=== PATIENT | male | born 1965 | race Two or more races ===

== ENCOUNTER 2020-06-14 16:23 | Outpatient (REF) | payer OTHER, SELFPAY ==
[2020-06-14 16:52] LABS: Mean Corpuscular Volume 76.8 fL (80-98); Mean Platelet Volume 11.3 fL (9.4-12.4); Monocytes Percent Auto 10.3 % (2-11); PLT CLUMP 1; Red Cell Distribution Width 17.2 % (11.0-16.0); SCAN SMEAR FLAG 1
[2020-06-14 16:54] LABS: Basophils Percent Auto 0.6 % (0-2); Eosinophils Absolute Auto 0.3 X10*3/uL (0.0-0.4); Eosinophils Percent Auto 5.3 % (0-4); Hematocrit 38.1 % (42-52); Imm Gran Abs Auto 0.02 X10*3/uL (0.00-0.03); Imm Gran Pct Auto 0.4 % (0.0-0.4); Lymphocytes Percent Auto 18.4 % (20-40); Mean Corpuscular HGB Conc 31.5 g/dl (31.0-36.0); Mean Corpuscular Hemoglobin 24.2 pg (27.0-33.0); Monocytes Absolute Auto 0.6 X10*3/uL (0.1-1.2); Neutrophils Absolute Auto 3.5 X10*3/uL (2.0-8.3); Platelet Count 121 X10*3/uL (160-400); Red Blood Count 4.96 X10*6/uL (4.60-5.80); White Blood Count 5.3 X10*3/uL (4.8-10.8)
[2020-06-14 16:55] LABS: PLT ABN DIST 1
[2020-06-14 16:56] LABS: MANUAL DIFF FLAG NO
[2020-06-14 16:58] LABS: INTERNATIONAL NORM RATIO 1.3 (0.9-1.1); Prothrombin Time 15.7 SEC (10.8-13.0)
[2020-06-14 17:39] LABS: Alanine Aminotransferase 54 U/L (0-40); Albumin Level 3.3 g/dL (3.5-5.0); Alkaline Phosphatase 175 U/L (39-117); Anion Gap 10 (12-20); Aspartate Amino Transferase 103 U/L (5-37); Bilirubin Direct 0.6 mg/dL (0.0-0.5); Bilirubin Total 1.1 mg/dL (0.0-1.0); Blood Urea Nitrogen 9 mg/dL (9-16); Calcium 8.6 mg/dL (8.4-10.2); Carbon Dioxide 28 mmol/L (22-29); Chloride 105 mmol/L (96-108); Estimated Glomerular Filt Rate > 60; Glucose Random 153 mg/dL (60-115); Potassium 4.6 mmol/l (3.3-5.1); Sodium 138 mmol/L (135-145)
== END 2020-06-14 16:24 | disposition home or self-care (01) ==
LOC: HO.LAB 16:23
PROVIDERS: PCP Internal Medicine; Visit Provider Internal Medicine
DX: K70.31 Alcoholic cirrhosis of liver with ascites (principal); I85.00 Esophageal varices without bleeding
CPT/HCPCS: 36415; 80053; 80076; 82248; 85025; 85610

== ENCOUNTER 2020-06-20 14:28 | Outpatient (REF) | payer OTHER, SELFPAY ==
[2020-06-21 11:27] LABS: Alpha Fetoprotein 3.6 ng/mL (<6.1)
== END 2020-06-20 14:29 | disposition home or self-care (01) ==
LOC: HO.LAB 14:28
PROVIDERS: PCP Internal Medicine; Visit Provider Internal Medicine
DX: K70.31 Alcoholic cirrhosis of liver with ascites (principal); I85.00 Esophageal varices without bleeding
CPT/HCPCS: 36415; 82105

== ENCOUNTER 2020-06-27 09:24 | Outpatient (REF) | payer OTHER, SELFPAY | END 2020-06-27 09:25 | disposition home or self-care (01) | LOC: HO.MRI 09:24 | PROVIDERS: Visit Provider Internal Medicine | DX: Z13.89 Encounter for screening for other disorder (principal) ==

== ENCOUNTER 2020-07-05 09:48 | Day surgery (SDC) | payer OTHER, SELFPAY ==
[2020-06-29 13:11] VITALS: BMI 29.9
[2020-06-29 15:00] VITALS: BMI 28.8
--- NOTE | 2020-07-04 08:39 | HO.ANESPROP2 ---
Documented by User: Nori Tatum 07/04/20 08:41 HPI - Anesthesia Eval Consult details Narrative: 55yo M for Upper Endoscopy with banding previously done at [facility] Past Medical History Medical History Cirrhosis Diabetes Elevated cholesterol Hepatitis History of alcohol abuse HTN (hypertension) Myocardial infarction Surgical History Surgical History H/O colonoscopy History of esophagogastroduodenoscopy (EGD) History of PTCA Hx of elbow surgery Hx of hand surgery Social History Social History Smoking Status: Unknown if ever smoked Advance Directives Information Provided: No Recently lost weight without trying: No Meds Allergies Allergy/AdvReac Type Severity Reaction Status Date / Time codeine [CODEINE] Allergy Mild ITCHINESS, Verified 07/05/20 10:29 itching penicillin G Allergy Mild itching Verified 06/29/20 13:03 Home Medications Medication Instructions Recorded Confirmed Type atorvastatin 20 mg PO DAILY 06/29/20 06/29/20 History dapagliflozin [Farxiga] 10 mg PO DAILY 06/29/20 06/29/20 History insulin glargine [Lantus Solostar 70 unit SUBCUT DAILY 06/29/20 07/05/20 History U-100 Insulin] metformin 1,000 mg PO BID 06/29/20 06/29/20 History nadolol 1.5 tab PO DAILY 06/29/20 06/29/20 History omeprazole 20 mg PO DAILY 06/29/20 06/29/20 History Exam Exam Date and Time: July 04, 2020 0839 Height,Weight and Vital Signs: Height 5 ft 5.5 in Weight 79.832 kg Pertinent Lab Results Pertinent Lab Results: Laboratory Tests 06/14/20 06/14/20 16:34 16:34 WBC 5.3 Hgb 12.0 L Hct 38.1 L Plt Count 121 L Sodium 138 Potassium 4.6 Chloride 105 Carbon Dioxide 28 BUN 9 Creatinine 1.01 Assessment and Plan Assessment Anesthesia Assessment: Chart Reviewed Documented by User: Sandy Jorge 07/05/20 10:44 PMFSH Past Medical History Medical History Cirrhosis Diabetes Elevated cholesterol Hepatitis History of alcohol abuse HTN (hypertension) Myocardial infarction Surgical History Surgical History H/O colonoscopy History of esophagogastroduodenoscopy (EGD) History of PTCA Hx of elbow surgery Hx of hand surgery Social History Social History Smoking Status: Unknown if ever smoked Advance Directives Information Provided: No Recently lost weight without trying: No Meds Allergies Allergy/AdvReac Type Severity Reaction Status Date / Time codeine [CODEINE] Allergy Mild ITCHINESS, Verified 07/05/20 10:29 itching penicillin G Allergy Mild itching Verified 06/29/20 13:03 Home Medications Medication Instructions Recorded Confirmed Type atorvastatin 20 mg PO DAILY 06/29/20 06/29/20 History dapagliflozin [Farxiga] 10 mg PO DAILY 06/29/20 06/29/20 History insulin glargine [Lantus Solostar 70 unit SUBCUT DAILY 06/29/20 07/05/20 History U-100 Insulin] metformin 1,000 mg PO BID 06/29/20 06/29/20 History nadolol 1.5 tab PO DAILY 06/29/20 06/29/20 History omeprazole 20 mg PO DAILY 06/29/20 06/29/20 History Exam Airway Mallampati Class: III ([place] front bottom and side) TM Dist: >3cm Neck ROM: Full Heart: RrR Lungs: CtA BL Assessment and Plan Assessment Anesthesia Assessment: Anesthesia Plan Discussed and Chart Reviewed Final Anesthetic Review NPO: Yes ASA Class: III Final Preanesthetic Review: Meds/Allgs Chart Reviewed and Consent Obtained/Reviewed Patient Risk: Intermediate Procedure Risk: Intermediate Anesthetic Plan Anesthetic Plan: MAC: Disposition: Standard PACU
[2020-07-05 10:30] LABS: Glucose, Whole Blood 165 mg/dL (60-115)
[2020-07-05 10:31] VITALS: BP 126/73; PULSE 87; RESP 16; TEMP 37.1; O2SAT 100
[2020-07-05] MEDS: Lactated Ringers 1,000 ML 100 ML IVCONT (10:35)
[2020-07-05 11:30] VITALS: BP 81/54; PULSE 96; RESP 16; TEMP 36.1; O2SAT 96
--- NOTE | 2020-07-05 11:38 | PM.OP ---
Brief Operative Note Date of Service: 07/05/20 Pre-op diagnosis: Cirrhosis, Esophageal varices Post-op diagnosis: other (Esophageal varices, Inflammatory gastric polyps, Gastritis) Procedure: EGD with banding Surgeon: Maverick Zuluaga Anesthesia: MAC Estimated blood loss (mL): 3.0 Pathology: none sent Condition: stable Disposition: PACU
[2020-07-05 11:45] VITALS: BP 100/65; PULSE 83; RESP 16; O2SAT 97
[2020-07-05 12:00] VITALS: BP 104/68; PULSE 89; RESP 16; TEMP 36.1; O2SAT 100
--- NOTE | 2020-07-05 12:20 | HO.POSTANES ---
Post Anesthesia Evaluation Post Anesthesia Evaluation Vital Signs: Vital Signs Temp Pulse Resp BP Pulse Ox 07/05/20 12:00 97.0 F 89 16 104/68 100 07/05/20 11:45 83 16 100/65 97 07/05/20 11:30 97.0 F 96 16 81/54 L 96 07/05/20 10:31 98.7 F 87 16 126/73 100 Anesthesia: Monitored Mental Status: Awake Pain Control: Satisfactory Nausea/Vomiting: None Hydration: Adequate Anesthesia-Related Issues: No Anes. Related Issues
--- NOTE | 2020-07-05 13:00 | OP_ITS ---
SURGEON: Maverick Zuluaga MD INDICATIONS: Full consent has been obtained from him for this, including risks of bleeding and perforation. PREOPERATIVE DIAGNOSIS: POSTOPERATIVE DIAGNOSIS: PROCEDURE PERFORMED: Esophagogastroduodenoscopy with banding of esophageal varices. ESTIMATED BLOOD LOSS: COMPLICATIONS: ANESTHESIA: Monitored anesthesia care. ASSISTANTS: SPECIMENS: PREOPERATIVE DIAGNOSES: Cirrhosis and esophageal varices. POSTOPERATIVE DIAGNOSES: Cirrhosis and esophageal varices, small hiatal hernia, inflammatory gastric polyps, and gastritis. DESCRIPTION OF PROCEDURE: The patient was placed in the left lateral decubitus position. The [employer]us video gastroscope was passed in the posterior oropharynx and upper esophagus under direct vision. The scope was passed slowly to the distal esophagus. The gastroesophageal junction appeared at 35 cm. Extending from this to approximately 26 cm, was a single variceal chain. There was no stigmata of recent nor active bleeding. The distal esophagus had scarring consistent with previous banding. There was no esophagitis. The scope entered into the stomach and was advanced to pylorus. The duodenum was cannulated to the descending portion. The duodenum including the bulb was carefully inspected. There was some duodenitis in the duodenal bulb, but no evidence of any ulceration nor mass. The scope was withdrawn back in the stomach. The gastric antrum and body had evidence of gastritis with some less than 5 mm erosions as well as inflammatory appearing gastric polyps, one of which was particularly friable. Biopsies were not obtained due to his elevated INR. The scope was retroflexed visualizing the proximal stomach carefully, which also revealed some proximal gastric polyps, but no sign of any varices. The scope was straightened out and withdrawn back into the esophagus. The scope was withdrawn from the patient. The gastroscope with the [employer] variceal banding apparatus was then passed into the posterior oropharynx and upper esophagus under direct vision. The scope was passed slowly into the distal esophagus. I placed a single band on the variceal chain at 32 cm. There was good application and no sign of bleeding. I then proceeded to place another band at approximately 30 cm and at 28 cm with good deployment and good hemostasis. At that point, the scope was withdrawn from the patient. He tolerated the procedure well and was returned to the recovery area in stable condition. IMPRESSION: 1. Esophageal varices, status post banding. 2. Small hiatal hernia. 3. Inflammatory gastric polyps and gastritis. PLAN: The patient will continue his current regimen of Nadolol 60 mg daily. He will also continue his omeprazole, but I shall increase that to twice a day for 1 month. He will also start a regimen of Carafate suspension 1 g t.i.d. for 2 weeks. He was advised to stay on a very soft and primarily full liquid diet for the next 24 to 48 hours. He will be seen in 2 to 3 months in the office. We are trying to get him an appointment at either the [facility] depending upon his insurance availability, but if not, then we would try to have him be seen at the [facility] in [place] [facility]. He was advised not to use any aspirin and NSAIDs long-term. MD IMANI Nguyen/MEAGAN / [id number] MTDD
== END 2020-07-05 12:50 | disposition home or self-care (01) ==
PROVIDERS: PCP Internal Medicine; Visit Provider Internal Medicine
PROC: 0DJ08ZZ Inspection of Upper Intestinal Tract, Via Natural or Artificial Opening Endoscopic (ICD-10-PCS; CPT 43235; principal; 2020-07-05 11:10)
DX: K70.30 Alcoholic cirrhosis of liver without ascites (principal); I85.10 Secondary esophageal varices without bleeding; I81 Portal vein thrombosis; F10.10 Alcohol abuse, uncomplicated; K29.70 Gastritis, unspecified, without bleeding; K29.80 Duodenitis without bleeding; K31.7 Polyp of stomach and duodenum; K44.9 Diaphragmatic hernia without obstruction or gangrene; R79.1 Abnormal coagulation profile; I25.2 Old myocardial infarction; I10 Essential (primary) hypertension; E11.8 Type 2 diabetes mellitus with unspecified complications; Z79.4 Long term (current) use of insulin; Z86.19 Personal history of other infectious and parasitic diseases; Z79.899 Other long term (current) drug therapy; Z88.0 Allergy status to penicillin; Z88.8 Allergy status to other drugs, medicaments and biological substances
CPT/HCPCS: 43244; 82947

== ENCOUNTER 2021-06-20 16:21 | Outpatient (REF) | payer OTHER, SELFPAY ==
[2021-06-20 18:30] LABS: INTERNATIONAL NORM RATIO 1.2 (0.9-1.1)
[2021-06-20 18:36] LABS: Basophils Percent Auto 0.7 % (0-2); Imm Gran Abs Auto 0.01 X10*3/uL (0.00-0.03); Imm Gran Pct Auto 0.2 % (0.0-0.4); MANUAL DIFF FLAG SCAN; Neutrophils Percent Auto 64.2 % (45-73); SCAN SMEAR FLAG 1
[2021-06-20 18:38] LABS: Eosinophils Absolute Auto 0.2 X10*3/uL (0.0-0.4); Hematocrit 36.4 % (42.0-52.0); Lymphocytes Absolute Auto 0.9 X10*3/uL (1.2-4.9); Lymphocytes Percent Auto 20.5 % (20-40); Mean Corpuscular Hemoglobin 26.5 pg (27.0-33.0); Mean Corpuscular Volume 80.4 fL (80.0-98.0); Monocytes Absolute Auto 0.4 X10*3/uL (0.1-1.2); Monocytes Percent Auto 10.4 % (2-11); Neutrophils Absolute Auto 2.7 x10*3/uL (2.0-8.3); Red Blood Count 4.53 X10*6/uL (4.60-5.80); Red Cell Distribution Width 15.9 % (11.0-16.0)
[2021-06-20 18:39] LABS: PLT ABN DIST 1
[2021-06-20 18:53] LABS: White Blood Count 4.2 X10*3/uL (4.8-10.8)
[2021-06-20 18:54] LABS: Platelet Count 86 X10*3/uL (160-400); SLIDE REVIEW VERIFIED
[2021-06-20 19:21] LABS: Alanine Aminotransferase 52 U/L (0-40); Albumin Level 2.9 g/dL (3.5-5.0); Alkaline Phosphatase 197 U/L (39-117); Anion Gap 12 (12-20); Aspartate Amino Transferase 92 U/L (5-37); Bilirubin Direct 0.7 mg/dL (0.0-0.5); Bilirubin Total 1.5 mg/dL (0.0-1.0); Blood Urea Nitrogen 13 mg/dL (9-16); Calcium 8.8 mg/dL (8.4-10.2); Carbon Dioxide 25 mmol/L (22-29); Chloride 97 mmol/L (96-108); Estimated Glomerular Filt Rate 54; Glucose Random 604 mg/dL (60-115); Potassium 4.5 mmol/L (3.3-5.1); Sodium 129 mmol/L (135-145); Total Protein 7.4 g/dL (6.5-8.0)
[2021-06-21 12:16] LABS: Alpha Fetoprotein 4.4 ng/mL (<6.1)
== END 2021-06-20 16:22 | disposition home or self-care (01) ==
LOC: HO.LAB 16:21
PROVIDERS: Visit Provider Internal Medicine
DX: K70.31 Alcoholic cirrhosis of liver with ascites (principal)
CPT/HCPCS: 36415; 80048; 80076; 82105; 85025; 85610

== ENCOUNTER 2021-06-21 07:48 | Outpatient (REF) | payer OTHER, SELFPAY ==
--- NOTE | ~2021-06-21 | US_ITS ---
EXAMINATION: US ABDOMEN COMPLETE CLINICAL INFORMATION: Alcoholic cirrhosis. COMPARISON: Ultrasound abdomen complete 03/18/2019 and 04/29/2017. TECHNIQUE: Real-time imaging of the abdominal viscera. FINDINGS: PANCREAS: Partially obscured by bowel gas. The visualized pancreatic body and neck are normal. ABDOMINAL AORTA: The proximal, mid, and distal segments are normal in caliber. INFERIOR VENA CAVA: Visualized portions are normal. LIVER: The liver chronically has heterogeneous, coarse parenchymal echotexture, likely from fibrotic changes. The liver is unchanged in appearance compared to 03/18/2019. No focal liver lesion or intrahepatic bile duct dilatation. Color Doppler images with spectral waveforms show normal flow direction in the main portal vein. GALLBLADDER: The gallbladder is physiologically distended without evidence of stones, sludge, polyps, or pericholecystic fluid. The gallbladder wall measures 0.3-0.4 cm thick. The gallbladder wall thickening, which is likely reactive to the hepatic disease, has decreased compared to 03/18/2019. COMMON BILE DUCT: Normal in caliber measuring 0.3 cm in diameter. RIGHT KIDNEY: Normal. No hydronephrosis. No renal calculi or focal parenchymal lesions. The kidney measures 11.1 cm in maximum dimension. LEFT KIDNEY: Normal. No hydronephrosis. No renal calculi or focal parenchymal lesions. The kidney measures 12.4 cm in maximum dimension. SPLEEN: Chronic splenomegaly is present and there are perisplenic varices. The spleen measures 17 cm in maximum dimension. FREE FLUID: None. US/US abdomen complete IMPRESSION: * No evidence of hepatoma or ascites in this patient with history of cirrhosis. * Chronic splenomegaly and perisplenic varices.
== END 2021-06-21 07:49 | disposition home or self-care (01) ==
LOC: HO.US 07:48
PROVIDERS: PCP Internal Medicine; Visit Provider Internal Medicine
DX: K70.31 Alcoholic cirrhosis of liver with ascites (principal)
CPT/HCPCS: 76700

== ENCOUNTER 2021-06-25 08:22 | Day surgery (SDC) | payer OTHER, SELFPAY ==
[2021-06-18 11:45] VITALS: BMI 29.1
[2021-06-25 08:33] VITALS: BMI 29.7
[2021-06-25 08:38] VITALS: BP 123/61; PULSE 85; RESP 16; TEMP 36.6; O2SAT 98
--- NOTE | 2021-06-25 08:40 | HO.ANESPROP2 ---
HPI - Anesthesia Eval Consult details Narrative: 56 M for colonoscopy CAD s/p stent placement cirrohosis , ETOH PMFSH Past Medical History Medical History (Updated 06/25/21 @ 08:27 by Mary Mercado RN) Cirrhosis Diabetes Elevated cholesterol Hepatitis History of alcohol abuse HTN (hypertension) Myocardial infarction Varices, esophageal Family History Family history of problems with anesthesia: No Surgical History Surgical History (Updated 06/18/21 @ 11:34 by Anna Valenzuela RN) H/O colonoscopy History of esophagogastroduodenoscopy (EGD) History of PTCA Hx of elbow surgery Hx of hand surgery History of Problems with Anesthesia: No Social History Social History Patient Tobacco Use Status: Former Tobacco user Tobacco use type: Cigarette Use of substances other than those prescribed or required for medical reasons: No Are you DNR?: No Advance Directives: No Advance Directives Information Provided: Yes Recently lost weight without trying: No Nutrition Risks: No Nutritional Risk Meds Allergies Allergy/AdvReac Type Severity Reaction Status Date / Time codeine [CODEINE] Allergy Mild ITCHINESS, Verified 07/05/20 10:29 itching penicillin G Allergy Mild itching Verified 06/29/20 13:03 Active Medications: Current Medications Lactated Ringer's (Lr) 1,000 mls @ 80 mls/hr IVCONT .[id number] IVELISSE Sodium Biphosphate/Sodium Phosphate (Sodium Phosphate,Wetzel-Dibasic 133 Ml Enema) 133 ml HI ONCE PRN PRN Reason: Poor Colonoscopy Prep Results Home Medications Medication Instructions Recorded Confirmed Last Taken Type atorvastatin 20 mg tablet 20 mg PO DAILY 06/29/20 06/29/20 Unknown History dapagliflozin 10 mg tablet 10 mg PO DAILY 06/29/20 06/29/20 Unknown History (Farxiri) insulin glargine 100 unit/mL (3 70 unit SUBCUT DAILY 06/29/20 07/05/20 07/04/20 12:00 History mL) subcutaneous pen (Lantus 1/2 dose ( 40 Solostar U-100 Insulin) units0 metformin 500 mg tablet,extended 1,000 mg PO BID 06/29/20 06/29/20 Unknown History release 24 hr nadolol 40 mg tablet 1.5 tab PO DAILY 06/29/20 06/29/20 Unknown History omeprazole 20 mg capsule,delayed 20 mg PO DAILY 06/29/20 06/29/20 Unknown History release Exam Exam Date and Time: June 25, 2021 0840 Height,Weight and Vital Signs: Height 5 ft 4 in Weight 78.471 kg Airway Mallampati Class: II TM Dist: >3cm Neck ROM: Full Loose/Missing/Broken Teeth: Yes ([place]) Heart: rrr Lungs: bl breath sounds Assessment and Plan Assessment Anesthesia Assessment: Anesthesia Plan Discussed Final Anesthetic Review Family History of Problems with Anesthesia: No History of Problems with Anesthesia: No NPO: Yes ASA Class: III Patient Risk: Intermediate Procedure Risk: Intermediate Anesthetic Plan Anesthetic Plan: MAC: Disposition: Standard PACU
[2021-06-25 08:59] LABS: Glucose, Whole Blood 165 mg/dL (60-115)
[2021-06-25] MEDS: Lactated Ringers 1,000 ML 50 ML IVCONT (09:05)
[2021-06-25 10:38] VITALS: BP 95/57; PULSE 87; RESP 16; TEMP 37.2; O2SAT 96
--- NOTE | 2021-06-25 10:38 | PM.OP ---
Brief Operative Note Date of Service: 06/25/21 Pre-op diagnosis: Screening Post-op diagnosis: other (Colon polyps) Procedure: Colonoscopy to the cecum and TI with bx/removal of polyp, and hot snare polypectomy at 20cm. Surgeon: Maverick Zuluaga Anesthesia: MAC Was an Core Blower Operator used for this Procedure?: No Estimated blood loss (mL): 3.0 Pathology: other (A. Polyp at 50cm B. Polyp at 20cm) Condition: stable Disposition: PACU
[2021-06-25 10:53] VITALS: BP 124/73; PULSE 90; RESP 18; TEMP 37.2; O2SAT 99
--- NOTE | 2021-06-25 11:54 | OP_ITS ---
SURGEON: Maverick Zuluaga MD INDICATIONS: The patient presents for evaluation of colorectal cancer screening, personal history of tubular adenoma of the colon, and family history of colon cancer. Full consent was obtained from him for this, including risks of bleeding and perforation. PREOPERATIVE DIAGNOSIS: POSTOPERATIVE DIAGNOSIS: PROCEDURE PERFORMED: Colonoscopy to cecum and terminal ileum with biopsy and removal of polyp, and hot snare polypectomy. ESTIMATED BLOOD LOSS: COMPLICATIONS: ANESTHESIA: Monitored anesthesia care. ASSISTANTS: SPECIMENS: PREOPERATIVE DIAGNOSES: Colorectal cancer screening, family history of colon cancer, personal history of tubular adenoma of the colon. POSTOPERATIVE DIAGNOSES: Colorectal cancer screening, family history of colon cancer, personal history of tubular adenoma of the colon, colon polyps, diverticulosis, and internal hemorrhoids. DESCRIPTION OF PROCEDURE: The patient was placed in the left lateral decubitus position. The digital rectal exam revealed no abnormalities. The [employer] video pediatric colonoscope was entered into the rectum and advanced easily to the cecum. Once in the cecum, I did identify normal-appearing cecal pouch with appendiceal orifice and a normal-appearing ileocecal valve. The terminal ileum was cannulated and appeared normal. Scope was withdrawn back in the colon. The entire cecum and ileocecal valve appeared normal. The scope was slowly withdrawn assessing all mucosal surfaces carefully. Preparation was excellent. At 50 cm, was an approximately 3 mm polyp, which was biopsied and completely removed with cold biopsy forceps. At 20 cm, was an approximately 8 mm polyp, which was snared and recovered by suction, with a hot snare polypectomy. The polypectomy site appeared clean, without any sign of residual polyp nor bleeding. I did not visualize any other polyps, colitis, or angiodysplasia. There was a mild amount of sigmoid diverticulosis. In the rectum, the scope was retroflexed visualizing internal hemorrhoids, but no other pathology. The rectal mucosa appeared normal. The scope was straightened and withdrawn from the patient. He tolerated the procedure well and was returned to recovery area in stable condition. IMPRESSION: 1. Colon polyps, status post hot snare polypectomy, and biopsy removal. 2. Diverticulosis. 3. Internal hemorrhoids. PLAN: The results of the pathology will be checked. I would recommend a repeat colonoscopy in 5 years for further screening. He was advised to stay off all aspirin and NSAIDs long-term given the previous history of esophageal varices with bleeding. He will continue to be followed at the [facility]. He was advised to see me again by the fall. MD IMANI Nguyen/MEAGAN / [id number] MTDD
== END 2021-06-25 11:20 | disposition home or self-care (01) ==
PROVIDERS: PCP Internal Medicine; Visit Provider Internal Medicine
PROC: 0DJD8ZZ Inspection of Lower Intestinal Tract, Via Natural or Artificial Opening Endoscopic (ICD-10-PCS; CPT 45378; principal; 2021-06-25 09:20)
DX: Z12.11 Encounter for screening for malignant neoplasm of colon (principal); Z80.0 Family history of malignant neoplasm of digestive organs; Z86.010 Personal history of colon polyps; D12.5 Benign neoplasm of sigmoid colon; K57.30 Diverticulosis of large intestine without perforation or abscess without bleeding; K64.8 Other hemorrhoids; K70.31 Alcoholic cirrhosis of liver with ascites; F10.21 Alcohol dependence, in remission; I85.10 Secondary esophageal varices without bleeding; I81 Portal vein thrombosis; E11.9 Type 2 diabetes mellitus without complications; I10 Essential (primary) hypertension; Z79.4 Long term (current) use of insulin; Z79.899 Other long term (current) drug therapy; Z88.0 Allergy status to penicillin; Z88.8 Allergy status to other drugs, medicaments and biological substances; Z86.19 Personal history of other infectious and parasitic diseases; Z87.891 Personal history of nicotine dependence
CPT/HCPCS: 45385; 45380; 82947; 88305

== ENCOUNTER 2021-10-24 15:50 | Outpatient (REF) | payer OTHER, SELFPAY ==
[2021-10-24 17:13] LABS: Hemoglobin 11.2 g/dl (14.0-18.0); INTERNATIONAL NORM RATIO 1.4 (0.9-1.1); Imm Gran Abs Auto 0.01 X10*3/uL (0.00-0.03); Imm Gran Pct Auto 0.2 % (0.0-0.4); Mean Corpuscular Hemoglobin 25.1 pg (27.0-33.0); Prothrombin Time 15.9 SEC (9.9-13.0); Red Blood Count 4.46 X10*6/uL (4.60-5.80); Red Cell Distribution Width 17.5 % (11.0-16.0); SCAN SMEAR FLAG 1
[2021-10-24 17:14] LABS: Eosinophils Absolute Auto 0.2 X10*3/uL (0.0-0.4); Eosinophils Percent Auto 4.4 % (0-4); Hematocrit 34.5 % (42.0-52.0); Lymphocytes Absolute Auto 0.7 X10*3/uL (1.2-4.9); Mean Corpuscular HGB Conc 32.5 g/dl (31.0-36.0); Mean Corpuscular Volume 77.4 fL (80.0-98.0); Mean Platelet Volume 11.3 fL (9.4-12.4); Monocytes Absolute Auto 0.5 X10*3/uL (0.1-1.2); Monocytes Percent Auto 12.2 % (2-11); Neutrophils Absolute Auto 2.6 x10*3/uL (2.0-8.3); Neutrophils Percent Auto 64.2 % (45-73); White Blood Count 4.1 X10*3/uL (4.8-10.8)
[2021-10-24 17:29] LABS: PLT ABN DIST 1; Platelet Count 91 X10*3/uL (160-400)
[2021-10-24 17:30] LABS: MANUAL DIFF FLAG NO
[2021-10-24 17:40] LABS: Alanine Aminotransferase 39 U/L (0-40); Albumin Level 2.3 g/dL (3.5-5.0); Alkaline Phosphatase 196 U/L (39-117); Anion Gap 10 (12-20); Aspartate Amino Transferase 64 U/L (5-37); Bilirubin Direct 0.8 mg/dL (0.0-0.5); Bilirubin Total 1.5 mg/dL (0.0-1.0); Blood Urea Nitrogen 9 mg/dL (9-16); Carbon Dioxide 26 mmol/L (22-29); Chloride 97 mmol/L (96-108); Estimated Glomerular Filt Rate > 60; Glucose Random 598 mg/dL (60-115); Potassium 3.7 mmol/L (3.3-5.1); Sodium 129 mmol/L (135-145); Total Protein 6.8 g/dL (6.5-8.0)
== END 2021-10-24 15:51 | disposition home or self-care (01) ==
LOC: HO.LAB 15:50
PROVIDERS: Visit Provider Internal Medicine
DX: Z13.89 Encounter for screening for other disorder (principal)
CPT/HCPCS: 36415; 80053; 82105; 82248; 85025; 85610

== ENCOUNTER 2021-10-26 14:23 | Outpatient (REF) | payer OTHER, SELFPAY ==
--- NOTE | ~2021-10-26 | US_ITS ---
EXAMINATION: US ABDOMEN COMPLETE CLINICAL INFORMATION: Alcoholic cirrhosis. Rule out portal vein thrombosis. COMPARISON: Ultrasound abdomen complete 06/21/2021 and 03/18/2019. TECHNIQUE: Real-time imaging of the abdominal viscera. FINDINGS: PANCREAS: The tail is obscured by overlying bowel gas. The visualized portions of the pancreas are within normal limits. ABDOMINAL AORTA: The distal abdominal aorta is obscured by overlying bowel gas. The visualized proximal and mid abdominal aorta are of normal diameter. INFERIOR VENA CAVA: Visualized portions are normal. LIVER: Cirrhotic liver morphology without discrete focal lesions. No intrahepatic biliary ductal dilatation. GALLBLADDER: Chronic gallbladder wall thickening measuring up to 0.6 cm. No shadowing stones. Positive Wagoner's sign and. COMMON BILE DUCT: Normal in caliber measuring 0.4 cm in diameter. RIGHT KIDNEY: Normal. No hydronephrosis. No renal calculi or focal parenchymal lesions. The kidney measures 11.1 cm in maximum dimension. LEFT KIDNEY: Normal. No hydronephrosis. No renal calculi or focal parenchymal lesions. The kidney measures 12.0 cm in maximum dimension. SPLEEN: Splenomegaly measuring 18.2 cm. No discrete focal lesions. FREE FLUID: Small volume of ascites. OTHERS: The main portal vein demonstrates patent flow which is retrograde, consistent with portal hypertension. US/US abdomen complete IMPRESSION: Cirrhotic liver morphology with findings most consistent of portal hypertension including ascites, centrifugal portal venous flow, splenomegaly, and splenorenal varices. Nonspecific gallbladder wall thickening in the setting of cirrhosis and ascites. Wagoner sign was however positive and clinical correlation for acute cholecystitis is recommended.
== END 2021-10-26 14:24 | disposition home or self-care (01) ==
LOC: HO.US 14:23
PROVIDERS: Visit Provider Internal Medicine
DX: K70.31 Alcoholic cirrhosis of liver with ascites (principal); R60.0 Localized edema
CPT/HCPCS: 76700

== ENCOUNTER 2022-03-08 14:49 | Outpatient (REF) | payer OTHER, SELFPAY ==
[2022-03-08 15:16] LABS: MANUAL DIFF FLAG NO
[2022-03-08 15:30] LABS: Basophils Percent Auto 0.7 % (0-2); Eosinophils Absolute Auto 0.1 X10*3/uL (0.0-0.4); Eosinophils Percent Auto 3.3 % (0-4); Hematocrit 36.9 % (42.0-52.0); Hemoglobin 12.9 g/dl (14.0-18.0); Imm Gran Abs Auto 0.01 X10*3/uL (0.00-0.03); Imm Gran Pct Auto 0.2 % (0.0-0.4); Lymphocytes Absolute Auto 0.7 X10*3/uL (1.2-4.9); Lymphocytes Percent Auto 16.3 % (20-40); Mean Corpuscular Volume 85.8 fL (80.0-98.0); Mean Platelet Volume 12.1 fL (9.4-12.4); Monocytes Absolute Auto 0.4 X10*3/uL (0.1-1.2); Monocytes Percent Auto 8.4 % (2-11); Neutrophils Absolute Auto 3.1 x10*3/uL (2.0-8.3); Neutrophils Percent Auto 71.1 % (45-73); Red Cell Distribution Width 14.6 % (11.0-16.0); White Blood Count 4.3 X10*3/uL (4.8-10.8)
[2022-03-08 15:31] LABS: Platelet Count 85 X10*3/uL (160-400)
[2022-03-08 15:36] LABS: INTERNATIONAL NORM RATIO 1.2 (0.9-1.1); Prothrombin Time 14.2 SEC (10.0-13.1)
[2022-03-08 16:11] LABS: Alanine Aminotransferase 42 U/L (0-40); Albumin Level 2.7 g/dL (3.5-5.0); Alkaline Phosphatase 224 U/L (39-117); Anion Gap 14 (12-20); Aspartate Amino Transferase 75 U/L (5-37); Bilirubin Direct 0.9 mg/dL (0.0-0.5); Bilirubin Total 1.7 mg/dL (0.0-1.0); Blood Urea Nitrogen 13 mg/dL (9-16); Calcium 8.6 mg/dL (8.4-10.2); Carbon Dioxide 21 mmol/L (22-29); Chloride 100 mmol/L (96-108); Estimated Glomerular Filt Rate > 60; Glucose Random 565 mg/dL (60-115); Potassium 4.4 mmol/L (3.3-5.1); Sodium 131 mmol/L (135-145); Total Protein 7.2 g/dL (6.5-8.0)
[2022-03-13 13:52] LABS: Alpha Fetoprotein 3.1 ng/mL (<6.1)
== END 2022-03-08 14:50 | disposition home or self-care (01) ==
LOC: HO.LAB 14:49
PROVIDERS: PCP Physician Assistant Medical; Visit Provider Internal Medicine
DX: K70.31 Alcoholic cirrhosis of liver with ascites (principal)
CPT/HCPCS: 36415; 80048; 80076; 82105; 85025; 85610

== ENCOUNTER 2022-04-19 09:22 | Outpatient (REF) | payer OTHER, SELFPAY ==
--- NOTE | ~2022-04-19 | US_ITS ---
EXAMINATION: US ABDOMEN COMPLETE CLINICAL INFORMATION: Cirrhosis of liver. COMPARISON: Previous abdominal ultrasound most recent October 2021 TECHNIQUE: Ultrasound abdomen complete 10/26/2021 and 06/21/2021. FINDINGS: PANCREAS: The pancreas is not optimally visualized. The body the pancreas appears heterogeneous. The head and tail are not seen. ABDOMINAL AORTA: The proximal, mid, and distal segments are normal in caliber. INFERIOR VENA CAVA: Visualized portions are normal. LIVER: The liver is cirrhotic appearing. Liver echotexture is very heterogeneous. No focal liver lesion is seen. No biliary duct dilatation. GALLBLADDER: The gallbladder is enlarged. There is gallbladder wall thickening and edema. Gallbladder wall measures up to 7 mm. This may be related to the patient's liver disease. No gallstones are seen. COMMON BILE DUCT: Normal in caliber measuring 0.3 cm in diameter. RIGHT KIDNEY: Normal. No hydronephrosis. No renal calculi or focal parenchymal lesions. The kidney measures 11.4 cm in maximum dimension. LEFT KIDNEY: Normal. No hydronephrosis. No renal calculi or focal parenchymal lesions. The kidney measures 12.7 cm in maximum dimension. SPLEEN: The spleen is enlarged. The spleen measures 20.6 cm in maximum dimension. There are multiple varices adjacent to the spleen. FREE FLUID: There is a small to moderate amount of ascites. Dedicated Doppler exam was not performed however the splenic vein demonstrates hepatofugal flow. The portal splenic confluence and main, right and left portal veins appear occluded. There is question of an occluded paraumbilical vein. US/US abdomen complete IMPRESSION: Cirrhotic-appearing liver. Splenomegaly. Moderate amount of ascites. Distended gallbladder with gallbladder wall thickening and edema. This may be related to liver disease. Limited visualization of the pancreas. The body of the pancreas appears heterogeneous. Dedicated Doppler exam not performed however the right and left and main portal veins and portal splenic confluence appear occluded. There is hepatofugal flow in the splenic vein.
[2022-04-19 10:46] LABS: MANUAL DIFF FLAG NO
[2022-04-19 10:56] LABS: Basophils Percent Auto 1.1 % (0-2); Eosinophils Absolute Auto 0.2 X10*3/uL (0.0-0.4); Eosinophils Percent Auto 5.4 % (0-4); Hematocrit 34.5 % (42.0-52.0); Hemoglobin 11.3 g/dl (14.0-18.0); Imm Gran Abs Auto 0.01 X10*3/uL (0.00-0.03); Imm Gran Pct Auto 0.3 % (0.0-0.4); Lymphocytes Absolute Auto 0.5 X10*3/uL (1.2-4.9); Lymphocytes Percent Auto 13.2 % (20-40); Mean Corpuscular HGB Conc 32.8 g/dl (31.0-36.0); Mean Corpuscular Hemoglobin 27.8 pg (27.0-33.0); Mean Platelet Volume 11.3 fL (9.4-12.4); Monocytes Absolute Auto 0.5 X10*3/uL (0.1-1.2); Monocytes Percent Auto 12.4 % (2-11); Neutrophils Absolute Auto 2.5 x10*3/uL (2.0-8.3); Neutrophils Percent Auto 67.6 % (45-73); Red Blood Count 4.06 X10*6/uL (4.60-5.80); Red Cell Distribution Width 14.2 % (11.0-16.0); White Blood Count 3.7 X10*3/uL (4.8-10.8)
[2022-04-19 10:57] LABS: Platelet Count 98 X10*3/uL (160-400)
[2022-04-19 11:07] LABS: INTERNATIONAL NORM RATIO 1.4 (0.9-1.1); Prothrombin Time 15.9 SEC (10.0-13.1)
[2022-04-19 11:09] LABS: Partial Thromboplastin Time 31.1 SEC (26.0-36.4)
[2022-04-19 11:47] LABS: Alanine Aminotransferase 53 U/L (0-40); Albumin Level 2.4 g/dL (3.5-5.0); Alkaline Phosphatase 207 U/L (39-117); Anion Gap 13 (12-20); Bilirubin Direct 1.1 mg/dL (0.0-0.5); Blood Urea Nitrogen 10 mg/dL (9-16); Carbon Dioxide 25 mmol/L (22-29); Chloride 100 mmol/L (96-108); Estimated Glomerular Filt Rate > 60; Potassium 4.1 mmol/L (3.3-5.1); Sodium 134 mmol/L (135-145)
[2022-04-19 11:59] LABS: Aspartate Amino Transferase 104 U/L (5-37)
== END 2022-04-19 09:23 | disposition home or self-care (01) ==
LOC: HO.US 09:22
PROVIDERS: Visit Provider Internal Medicine
DX: K74.60 Unspecified cirrhosis of liver (principal)
CPT/HCPCS: 36415; 76700; 80051; 80076; 82565; 84520; 85025; 85610; 85730

== ENCOUNTER 2022-05-06 15:52 | Outpatient (REF) | payer OTHER, SELFPAY ==
[2022-05-06 17:03] LABS: Anion Gap 9 (12-20); Blood Urea Nitrogen 11 mg/dL (9-16); Carbon Dioxide 27 mmol/L (22-29); Chloride 99 mmol/L (96-108); Estimated Glomerular Filt Rate > 60; Potassium 4.5 mmol/L (3.3-5.1); Sodium 130 mmol/L (135-145)
[2022-05-08 13:58] LABS: Alpha Fetoprotein 2.9 ng/mL (<6.1)
== END 2022-05-06 15:53 | disposition home or self-care (01) ==
LOC: HO.LAB 15:52
PROVIDERS: PCP Physician Assistant Medical; Visit Provider Internal Medicine
DX: K74.60 Unspecified cirrhosis of liver (principal); R93.5 Abnormal findings on diagnostic imaging of other abdominal regions, including retroperitoneum
CPT/HCPCS: 36415; 80051; 82105; 82565; 84520

== ENCOUNTER 2022-05-13 07:00 | Day surgery (SDC) | payer OTHER, SELFPAY ==
--- NOTE | ~2022-05-13 | US_ITS ---
EXAMINATION: US-GUIDED PARACENTESIS CLINICAL INFORMATION: Ascites and cirrhosis. COMPARISON: Previous abdominal ultrasound most recent 04/19/2022 TECHNIQUE: Procedure and risks and benefits including bleeding, infection and low blood pressure were discussed with the patient and informed consent was obtained. The left lower quadrant was prepped and draped in the usual sterile fashion. The skin and soft tissues were anesthetized with 1% lidocaine plain. Using ultrasound guidance and a 5 Hebrew catheter, access to the ascitic fluid was obtained. 2.6 L of clear yellow fluid was removed. Diagnostic specimen was sent as requested by the ordering physician. FINDINGS: There is a moderate amount of ascites. US/US paracentesis abd w/image IMPRESSION: Ultrasound-guided paracentesis.
[2022-05-13 07:15] VITALS: BMI 31.2
[2022-05-13 07:31] LABS: Glucose, Whole Blood 292 mg/dL (60-115)
--- NOTE | 2022-05-13 09:12 | HO.RADPN ---
RADIOLOGY Narrative Narrative: LLQ paracentesis performed using 5 fr catheter. 2.6 L clear yellow fluid removed. Specimen sent.
[2022-05-13 09:30] VITALS: BP 120/70; PULSE 88; RESP 18; TEMP 36.6; O2SAT 100
[2022-05-13 09:45] VITALS: BP 127/67; PULSE 89; RESP 18; TEMP 36.6; O2SAT 100
[2022-05-13] MEDS: Lidocaine HCl 1 % MPF 5 ML VIAL 10 ML SUBCUT (09:48)
[2022-05-13 10:00] VITALS: BP 135/57; PULSE 87; RESP 18; TEMP 37.2; O2SAT 100
[2022-05-13 10:15] VITALS: BP 116/62; PULSE 94; RESP 18; TEMP 37.1; O2SAT 100
[2022-05-13 10:16] LABS: MN% 91.9 %; PMN% 8.1 %; WBC Peritoneal Fluid 0.358 X10*3/uL
[2022-05-13 10:19] LABS: RBC Peritoneal Fluid < 0.002 X10*6/uL
[2022-05-13 10:30] VITALS: BP 120/63; PULSE 95; RESP 18; TEMP 37; O2SAT 99
[2022-05-13 11:11] LABS: Lymphocyte Peritoneal Fl 42 %; Monocytes Peritoneal Fl 8 %; Neutrophils Peritoneal Fluid 5 %
[2022-05-13 11:12] LABS: BF Shift QC OK YES; Basophils Peritoneal Fl 0 %; Eosinophils Peritoneal Fl 0 %; Man Diluent Bkgrd OK YES; Other Peritioneal Fl 45 %
== END 2022-05-13 10:34 | disposition home or self-care (01) ==
PROVIDERS: PCP Physician Assistant Medical; Referring Provider Internal Medicine; Visit Provider Radiology Diagnostic Radiology
DX: K70.31 Alcoholic cirrhosis of liver with ascites (principal); I10 Essential (primary) hypertension; I85.10 Secondary esophageal varices without bleeding; I81 Portal vein thrombosis; E11.9 Type 2 diabetes mellitus without complications; Z80.0 Family history of malignant neoplasm of digestive organs; Z79.4 Long term (current) use of insulin; Z88.0 Allergy status to penicillin; Z88.8 Allergy status to other drugs, medicaments and biological substances
CPT/HCPCS: 49083; 82947; 87070; 87073; 87205; 89051

== ENCOUNTER 2022-05-20 16:12 | Outpatient (REF) | payer OTHER, SELFPAY ==
[2022-05-20 18:45] LABS: Alanine Aminotransferase 41 U/L (0-40); Albumin Level 2.4 g/dL (3.5-5.0); Alkaline Phosphatase 226 U/L (39-117); Anion Gap 11 (12-20); Aspartate Amino Transferase 68 U/L (5-37); Bilirubin Total 1.9 mg/dL (0.0-1.0); Blood Urea Nitrogen 9 mg/dL (9-16); Calcium 8.1 mg/dL (8.4-10.2); Carbon Dioxide 24 mmol/L (22-29); Chloride 99 mmol/L (96-108); Estimated Glomerular Filt Rate > 60; Glucose Random 619 mg/dL (60-115); Potassium 4.1 mmol/L (3.3-5.1); Sodium 130 mmol/L (135-145); Total Protein 6.9 g/dL (6.5-8.0)
== END 2022-05-20 16:13 | disposition home or self-care (01) ==
LOC: HO.LAB 16:12
PROVIDERS: Absent Provider Internal Medicine Gastroenterology; PCP Physician Assistant Medical; Visit Provider Internal Medicine
DX: K70.31 Alcoholic cirrhosis of liver with ascites (principal)
CPT/HCPCS: 36415; 80053

== ENCOUNTER 2022-05-29 14:58 | Outpatient (REF) | payer OTHER, SELFPAY ==
[2022-05-29 15:42] LABS: MANUAL DIFF FLAG NO
[2022-05-29 16:35] LABS: Basophils Percent Auto 0.9 % (0-2); Eosinophils Absolute Auto 0.3 X10*3/uL (0.0-0.4); Hematocrit 34.2 % (42.0-52.0); Hemoglobin 11.3 g/dl (14.0-18.0); Imm Gran Abs Auto 0.02 X10*3/uL (0.00-0.03); Imm Gran Pct Auto 0.5 % (0.0-0.4); Lymphocytes Absolute Auto 0.7 X10*3/uL (1.2-4.9); Lymphocytes Percent Auto 15.9 % (20-40); Mean Corpuscular Hemoglobin 26.5 pg (27.0-33.0); Mean Corpuscular Volume 80.1 fL (80.0-98.0); Mean Platelet Volume 11.4 fL (9.4-12.4); Monocytes Absolute Auto 0.5 X10*3/uL (0.1-1.2); Monocytes Percent Auto 11.1 % (2-11); Neutrophils Absolute Auto 2.8 x10*3/uL (2.0-8.3); Neutrophils Percent Auto 65.6 % (45-73); Red Blood Count 4.27 X10*6/uL (4.60-5.80); Red Cell Distribution Width 14.9 % (11.0-16.0); White Blood Count 4.3 X10*3/uL (4.8-10.8)
[2022-05-29 16:43] LABS: Platelet Count 97 X10*3/uL (160-400)
[2022-06-02 13:24] LABS: HCV Log PCR <1.18 NOT DETECTED Log IU/mL (NOT DETECTED); HepC Viral Load <15 NOT DETECTED IU/mL (NOT DETECTED)
[2022-06-08 11:53] LABS: Phosphatidylethanol 16:0-18:1 None Detected
== END 2022-05-29 14:59 | disposition home or self-care (01) ==
LOC: HO.LAB 14:58
PROVIDERS: PCP Internal Medicine; Visit Provider Nurse Practitioner Acute Care
DX: K70.31 Alcoholic cirrhosis of liver with ascites (principal)
CPT/HCPCS: 36415; 80321; 85025; 87522

== ENCOUNTER 2022-05-31 16:10 | Outpatient (REF) | payer OTHER, SELFPAY ==
[2022-05-31 17:59] LABS: INTERNATIONAL NORM RATIO 1.3 (0.9-1.1); Prothrombin Time 15.4 SEC (10.0-13.1)
[2022-05-31 18:35] LABS: Alanine Aminotransferase 44 U/L (0-40); Albumin Level 2.4 g/dL (3.5-5.0); Alkaline Phosphatase 248 U/L (39-117); Anion Gap 12 (12-20); Aspartate Amino Transferase 79 U/L (5-37); Blood Urea Nitrogen 9 mg/dL (9-16); Carbon Dioxide 22 mmol/L (22-29); Chloride 101 mmol/L (96-108); Estimated Glomerular Filt Rate > 60; Potassium 4.1 mmol/L (3.3-5.1); Sodium 131 mmol/L (135-145); Total Protein 7.1 g/dL (6.5-8.0)
[2022-05-31 19:57] LABS: Glucose Random 519 mg/dL (60-115)
== END 2022-05-31 16:11 | disposition home or self-care (01) ==
LOC: HO.LAB 16:10
PROVIDERS: PCP Physician Assistant Medical; Visit Provider Nurse Practitioner Acute Care
DX: K70.31 Alcoholic cirrhosis of liver with ascites (principal)
CPT/HCPCS: 36415; 80053; 85610

== ENCOUNTER 2022-08-08 16:12 | Outpatient (REF) | payer OTHER, SELFPAY ==
[2022-08-08 17:34] LABS: Anion Gap 12 (12-20); Blood Urea Nitrogen 10 mg/dL (9-16); Carbon Dioxide 26 mmol/L (22-29); Chloride 96 mmol/L (96-108); Estimated Glomerular Filt Rate > 60; Potassium 4.6 mmol/L (3.3-5.1); Sodium 129 mmol/L (135-145)
== END 2022-08-08 16:13 | disposition home or self-care (01) ==
LOC: HO.LAB 16:12
PROVIDERS: PCP Physician Assistant Medical; Visit Provider Internal Medicine
DX: K70.31 Alcoholic cirrhosis of liver with ascites (principal)
CPT/HCPCS: 36415; 80051; 82565; 84520

== ENCOUNTER 2022-09-08 20:35 | Inpatient (IN) | payer OTHER, SELFPAY ==
--- NOTE | ~2022-09-08 | XR_ITS ---
EXAMINATION: XR CHEST CLINICAL INFORMATION: Shortness of breath COMPARISON: Chest x-rays of 09/19/2016 and 09/17/2012 TECHNIQUE: Frontal view of the chest was obtained. FINDINGS: Cardiac mediastinal silhouette is stable and normal. No abnormal tracheal deviation. Stable mild elevation of the right hemidiaphragm. Streaky density in the left mid lung zone representing atelectasis. Streaky atelectasis at the right lung base. No focal consolidation, changes of congestion or pleural effusions. No pneumothorax. Visualized upper abdomen is unremarkable. XR/XR chest 1V IMPRESSION: Bilateral linear atelectasis. No radiographic evidence of pneumonia or pulmonary edema.
--- NOTE | ~2022-09-08 | CT_ITS ---
EXAMINATION: CT ABDOMEN AND PELVIS WITHOUT CONTRAST CLINICAL INFORMATION: Cirrhosis. COMPARISON: None available. TECHNIQUE: Multidetector volumetric imaging was performed from the superior aspect of the liver through the pubic symphysis. Sagittal and coronal reformatted images were obtained on the technologist's workstation. This CT examination was performed using dose optimization techniques as appropriate, variously including the following: *Automated exposure control *Adjustment of mA and/or kV according to patient size (this includes techniques or standardized protocols for targeted exams where dose is matched to indication/reason for exam; i.e. extremities or head) *Use of iterative reconstruction technique DLP: 679 mGy-cm FINDINGS: LUNG BASES: The visualized lung bases are unremarkable. LIVER, GALLBLADDER, AND BILIARY TREE: Morphologically cirrhotic liver. No focal liver lesions. No biliary dilatation. Gallbladder physiologically contracted. PANCREAS: Unremarkable. SPLEEN: Enlarged measuring up to 17.5 cm long axis. ADRENAL GLANDS: Unremarkable. KIDNEYS AND URETERS: The kidneys are normal in size, shape, and attenuation. No hydronephrosis, hydroureter, or calculi seen. No perinephric stranding. BLADDER: Unremarkable. GASTROINTESTINAL TRACT: Limited assessment in the absence of intravenous contrast, and large volume ascites. Bowel inflammation cannot be excluded. Scattered colonic diverticula. No evidence of diverticulitis. Distal esophageal circumferential wall thickening. Stomach and small bowel grossly unremarkable. No bowel obstruction. ABDOMINAL WALL: Fat-containing umbilical hernia. LYMPH NODES: Normal. VASCULAR: Aorta mildly atherosclerotic. Recanalized periumbilical vein. Spontaneous splenorenal shunt and retroperitoneal portosystemic collaterals. PELVIC VISCERA: Unremarkable. OSSEOUS STRUCTURES: No acute or suspicious osseous abnormalities. CT/CT abdomen pelvis wo IV con IMPRESSION: * Morphologically cirrhotic liver with large volume ascites and portosystemic collateralization as described. * Splenomegaly. * Scattered colonic diverticula without evidence of diverticulitis.
--- NOTE | ~2022-09-08 | US_ITS ---
EXAMINATION: Ultrasound-guided paracentesis CLINICAL INFORMATION: Ascites COMPARISON: Previous ultrasound exam 05/13/[address] of the abdomen and pelvis from earlier the same day TECHNIQUE: Procedure and risks and benefits including bleeding, infection and low blood pressure were discussed with the patient and informed consent was obtained. The left lower quadrant was prepped and draped in the usual sterile fashion. The skin and soft tissues were anesthetized with 1% lidocaine plain. Using ultrasound guidance and a 5 [place] Yueh needle, access to the ascitic fluid was obtained. 5.2 L of clear yellow fluid was removed. No diagnostic specimen was sent. FINDINGS: There is a large amount of ascites. US/US paracentesis abd w/image IMPRESSION: Ultrasound-guided paracentesis
--- NOTE | 2022-09-08 20:41 | ECG_ITS ---
Test Reason : SOB Blood Pressure : / mmHG Vent. Rate : 079 BPM Atrial Rate : 079 BPM P-R Int : 144 ms QRS Dur : 082 ms QT Int : 394 ms P-R-T Axes : 008 013 015 degrees QTc Int : 451 ms Normal sinus rhythm Nonspecific ST changes When compared with ECG of 19-SEP-2016 05:59, Nonspecific T wave abnormality now evident in Anterior leads Referred By: Chip Ferreira Electronically Signed By:Dany Graham
--- NOTE | 2022-09-08 20:41 | ED_ITS ---
HPI - General Adult General Chief complaint: General Medical <JERI Bolton - Last Filed: 09/08/22 20:44> Stated complaint: difficulty breathing, weak, forgetful <JERI Bolton - Last Filed: 09/08/22 20:44> Time Seen by Provider: 09/08/22 22:11 <JERI Bolton - Last Filed: 09/08/22 20:44> History of Present Illness HPI narrative: 57 year old male with history of alcoholic cirrhosis with small volume ascites and portal vein thrombosi hx of DM, HTN, CAD, HLD noncompliant with medications has not seen a PCP in last 5- 6 months has not taken insulin for about 10 a week been feeling sick for last few weeks got worse in last 1 week with increased confusion shortness of breath abdominal distension and weakness noticed to have black stool specially for last 2 days no fever or chills Prior to my evaluation lab workup showed hemoglobin 7.6 hematocrit 23 with baseline of 11.3/34 platelet count 154 sodium of 120 potassium 5.8 creatinine 1.57 glucose 506 <Arron Dunham MD - Last Filed: 09/09/22 05:24> Related Data Home medications: Home Medications Medication Instructions Recorded Confirmed atorvastatin 20 mg tablet 20 mg PO DAILY 06/29/20 06/29/20 dapagliflozin 10 mg tablet 10 mg PO DAILY 06/29/20 06/29/20 ([facility]) insulin glargine 100 unit/mL (3 70 unit subcut DAILY 06/29/20 07/05/20 mL) subcutaneous pen (Lantus Solostar U-100 Insulin) metformin 500 mg tablet,extended 1,000 mg PO BID 06/29/20 06/29/20 release 24 hr nadolol 40 mg tablet 1.5 tab PO DAILY 06/29/20 06/29/20 omeprazole 20 mg capsule,delayed 20 mg PO DAILY 06/29/20 06/29/20 release <JERI Bolton - Last Filed: 09/08/22 20:44> Allergies/adverse reactions: Allergies Allergy/AdvReac Type Severity Reaction Status Date / Time codeine [CODEINE] Allergy Mild ITCHINESS, Verified 09/08/22 20:47 itching penicillin G Allergy Mild itching Verified 09/08/22 20:47 <JERI Bolton - Last Filed: 09/08/22 20:44> Review of Systems Review of Systems: Constitutional : No Weight loss, No Fever, No Chills ENT/Mouth : No sore throat, No Rhinorrhea Eyes: No Eye Pain, No Swelling Cardiovascular : No Chest Pain, no palpitations Respiratory : No Cough, No Sputum, no shortness of breath Gastrointestinal :++ Nausea, No Vomiting, No Diarrhea, No abdominal Pain, ++ robbie ck stools Genitourinary : No Dysuria, No Urinary Frequency Musculoskeletal : No joint pain, No Myalgias, No Joint Swelling Skin : No Skin Lesions, No rash Neuro : ++ Weakness, No Numbness, No Dizziness, No Headache Psych : No Anxiety/Panic, No Depression Heme/Lymph: No Bruising, No Lymphadenopathy Endocrine : No Polyuria, No Polydipsia All other systems reviewed and are negative <Arron Dunham MD - Last Filed: 09/09/22 05:24> Yes all other systems are reviewed and are negative <Arron Dunham MD - Last Filed: 09/09/22 05:24> [facility] Past Medical History Medical History: Medical History Cirrhosis Diabetes Elevated cholesterol Hepatitis History of alcohol abuse HTN (hypertension) Myocardial infarction Varices, esophageal <JERI Bolton - Last Filed: 09/08/22 20:44> Surgical History: Surgical History H/O colonoscopy History of esophagogastroduodenoscopy (EGD) History of PTCA Hx of elbow surgery Hx of hand surgery <JERI Bolton - Last Filed: 09/08/22 20:44> Social History Social History: Social History Alcohol intake: never Patient Tobacco Use Status: Former Tobacco user Tobacco use type: Cigarette Smoked in Last 30 Days: No Use of substances other than those prescribed or required for medical reasons: No Any prior treatment program specific to substance use: No Advance Directives: No Advance Directives Information Provided: Yes <JERI Bolton - Last Filed: 09/08/22 20:44> Physical Exam ED Vital Signs: Vital Signs - 24 hr 09/08/22 20:43 09/09/22 00:45 09/09/22 01:04 Temperature 97.5 F 98.0 F 98.1 F Pulse Rate 80 82 80 Respiratory Rate 18 12 14 Blood Pressure 110/47 L 96/56 L 95/56 L Pulse Oximetry 100 Oxygen Delivery Method Room Air BMI result Body Mass Index 28.3 <JERI Bolton - Last Filed: 09/08/22 20:44> Vital Signs - 24 hr 09/08/22 20:43 09/09/22 00:45 09/09/22 01:04 Temperature 97.5 F 98.0 F 98.1 F Pulse Rate 80 82 80 Respiratory Rate 18 12 14 Blood Pressure 110/47 L 96/56 L 95/56 L Pulse Oximetry 100 Oxygen Delivery Method Room Air BMI result Body Mass Index 28.3 <Arron Dunham MD - Last Filed: 09/09/22 05:24> Appearance: Alert. Oriented X3. Looks sick Eyes: PERRLA, No Nystagmus pallor+++ ENT: Pharynx normal. Oral Mucosa moist Neck: Normal inspection. Neck supple. CVS: Normal heart rate and rhythm. Pulses normal. No murmur/rub or gallop Respiratory: No respiratory distress. Equal air entry bilateral, no wheezing/rales/rhonchi Abdomen: Soft and nontender. Ascites with free fluid++ Bowel sounds are present, no mass palpable, no CVA tenderness rectal:: Skin: Skin warm and dry. Normal skin color. Normal skin turgor. Extremities: No lower extremity edema. No calf tenderness Neuro: Oriented X 3. No motor deficit. No sensory deficit. <Arron Dunham MD - Last Filed: 09/09/22 05:24> Course Course Course Narrative: This is an RME: Additional HPI, ROS, PE not included below will be deferred to primary provider. 57 year old male hx of DM, HTN, CAD, HLD presents w/ sob, substernal cp non radiating, diarrhea x few days. Also complaining of a/c dry cough. No sick contacts. Denies fevers, N/V. PE benign 100% RA Plan- labs, ekg, trop, xray <JERI Bolton - Last Filed: 09/08/22 20:44> Medications Administered Generic Name Dose Route Start Last Admin Trade Name Freq PRN Reason Stop Dose Admin Sodium Chloride 500 mls @ 50 mls/hr 09/09/22 02:00 09/09/22 02:02 Ns IV 09/09/22 11:59 50 mls/hr .Q10H IVELISSE Administration Insulin Human Lispro 0 unit 09/09/22 02:05 09/09/22 03:22 Insulin Lispro 100 Unit/Ml 3 Ml Vial SUBCUT 8 unit QIDACHS IVELISSE Administration Protocol Discontinued Medications Generic Name Dose Route Start Last Admin Trade Name Freq PRN Reason Stop Dose Admin Furosemide 20 mg 09/09/22 00:34 09/09/22 01:58 Furosemide 40 Mg/4 Ml Vial IVPUSH 09/09/22 00:35 20 mg ONCE ONE Administration Protocol Sodium Chloride 1,000 mls @ 999 mls/hr 09/08/22 22:30 09/09/22 00:53 Ns IV 09/08/22 23:30 Infused .Q1H1M ONE Infusion Albumin Human 100 mls @ 100 mls/hr 09/09/22 00:45 09/09/22 04:10 Kedbumin 25 % IV 09/09/22 02:44 100 mls/hr Q1H IVELISSE Administration Insulin Human Lispro 14 unit 09/08/22 22:40 09/09/22 00:08 Insulin Lispro 100 Unit/Ml 3 Ml Vial SUBCUT 09/08/22 22:41 14 unit ONCE ONE Administration Insulin Human Lispro 14 unit 09/09/22 01:58 09/09/22 04:04 Insulin Lispro 100 Unit/Ml 3 Ml Vial SUBCUT 09/09/22 01:59 Not Given ONCE ONE Pantoprazole Sodium 40 mg 09/08/22 23:27 09/09/22 00:08 Pantoprazole Sodium 40 Mg/10 Ml Vial IVPUSH 09/08/22 23:28 40 mg ONCE ONE Administration <JERI Bolton - Last Filed: 09/08/22 20:44> Medications Administered Generic Name Dose Route Start Last Admin Trade Name Freq PRN Reason Stop Dose Admin Sodium Chloride 500 mls @ 50 mls/hr 09/09/22 02:00 09/09/22 02:02 Ns IV 09/09/22 11:59 50 mls/hr .Q10H IVELISSE Administration Insulin Human Lispro 0 unit 09/09/22 02:05 09/09/22 03:22 Insulin Lispro 100 Unit/Ml 3 Ml Vial SUBCUT 8 unit QIDACHS IVELISSE Administration Protocol Discontinued Medications Generic Name Dose Route Start Last Admin Trade Name Jaymeq PRN Reason Stop Dose Admin Furosemide 20 mg 09/09/22 00:34 09/09/22 01:58 Furosemide 40 Mg/4 Ml Vial IVPUSH 09/09/22 00:35 20 mg ONCE ONE Administration Protocol Sodium Chloride 1,000 mls @ 999 mls/hr 09/08/22 22:30 09/09/22 00:53 Ns IV 09/08/22 23:30 Infused .Q1H1M ONE Infusion Albumin Human 100 mls @ 100 mls/hr 09/09/22 00:45 09/09/22 04:10 Kedbumin 25 % IV 09/09/22 02:44 100 mls/hr Q1H IVELISSE Administration Insulin Human Lispro 14 unit 09/08/22 22:40 09/09/22 00:08 Insulin Lispro 100 Unit/Ml 3 Ml Vial SUBCUT 09/08/22 22:41 14 unit ONCE ONE Administration Insulin Human Lispro 14 unit 09/09/22 01:58 09/09/22 04:04 Insulin Lispro 100 Unit/Ml 3 Ml Vial SUBCUT 09/09/22 01:59 Not Given ONCE ONE Pantoprazole Sodium 40 mg 09/08/22 23:27 09/09/22 00:08 Pantoprazole Sodium 40 Mg/10 Ml Vial IVPUSH 09/08/22 23:28 40 mg ONCE ONE Administration <Arron Dunham MD - Last Filed: 09/09/22 05:24> Medical Decision Making Medical Decision Making MDM Narrative: Patient with alcoholic cirrhosis with worsening of ascites severe anemia guaiac is negative hyponatremia secondary to hypervolemia and hypoalbuminemia in the background of alcoholic cirrhosis with hyperglycemia. Patient's serum sodium level was 120 with glucose of 506 corrected sodium is 120+ 8 (2 mEq for each 100 mg of glucose above normal) = 128 patient improved after IV diuresis improvement of the glucose and blood transfusion and albumin will admit patient to hospitalist service for further management <Arron Dunham MD - Last Filed: 09/09/22 05:24> Differential Diagnosis Differential Diagnoses: The differential diagnosis associated with the presentation includes <Arron Dunham MD - Last Filed: 09/09/22 05:24> GI bleed/hepatic encephalopathy/hyponatremia/metabolic encephalopathy <Arron Dunham MD - Last Filed: 09/09/22 05:24> Consult Healthcare Provider Management of the patient was discussed with: Hospitalist <Arron Dunham MD - Last Filed: 09/09/22 05:24> Lab Data MDM Lab Attestation statement: I reviewed the patient's lab results. <Arron Dunham MD - Last Filed: 09/09/22 05:24> Result Diagrams: 09/08/22 21:29 09/08/22 21:29 <JERI Bolton - Last Filed: 09/08/22 20:44> Labs: Lab Results 09/08/22 09/08/22 09/08/22 Range/Units 21:29 21:29 21:29 WBC 6.6 (4.8-10.8) X10*3/uL RBC 2.83 L D (4.60-5.80) X10*6/uL Hgb 7.6 L D (14.0-18.0) g/dl Hct 23.0 L D (42.0-52.0) % MCV 81.3 (80.0-98.0) fL MCH 26.9 L (27.0-33.0) pg MCHC 33.0 (31.0-36.0) g/dl RDW 18.1 H (11.0-16.0) % Plt Count 154 L D (160-400) X10*3/uL MPV 11.2 (9.4-12.4) fL Immature Gran % (Auto) 0.8 H (0.0-0.4) % Neut % (Auto) 72.2 (45-73) % Lymph % (Auto) 10.8 L (20-40) % Josephine % (Auto) 12.7 H (2-11) % Eos % (Auto) 2.9 (0-4) % Baso % (Auto) 0.6 (0-2) % Lymph # (Auto) 0.7 L (1.2-4.9) X10*3/uL Josephine # (Auto) 0.8 (0.1-1.2) X10*3/uL Eos # (Auto) 0.2 (0.0-0.4) X10*3/uL Baso # (Auto) 0.0 (0.0-0.2) X10*3/uL Abs Immat Gran (auto) 0.05 H (0.00-0.03) X10*3/uL Absolute Neuts (auto) 4.8 (2.0-8.3) x10*3/uL Absolute Nucleated RBC 0.000 (0.0-0.012) X10*3/uL Nucleated RBC % (auto) 0.0 (0.0-0.2) /100WBC PT (10.0-13.1) SEC INR (0.9-1.1) APTT (26.0-36.4) SEC Sodium 120 L* (135-145) mmol/L Potassium 5.8 H D (3.3-5.1) mmol/L Chloride 91 L (96-108) mmol/L Carbon Dioxide 23 (22-29) mmol/L Anion Gap 12 (12-20) BUN 30 H (9-16) mg/dL Creatinine 1.57 H (0.5-1.4) mg/dL Estim Creat Clear Calc 48.5 Estimated GFR 45 Random Glucose 506 H* (60-115) mg/dL Osmolality (281-305) mosm/kg Calcium 7.3 L D (8.4-10.2) mg/dL Magnesium 2.4 (1.6-2.6) mg/dL Total Bilirubin 2.4 H (0.0-1.0) mg/dL AST 65 H (5-37) U/L ALT 41 H (0-40) U/L Alkaline Phosphatase 242 H (39-117) U/L Ammonia (13-55) umol/L Troponin I High Sens (<3.5-35.0) ng/L B-Natriuretic Peptide 86 (<100) pg/mL Total Protein 6.1 L (6.5-8.0) g/dL Albumin 2.0 L (3.5-5.0) g/dL Urine Osmolality (373-1093) mosm/kg Ur Random Sodium mmol/L Ur Random Chloride mmol/L Stool Occult Blood (NEGATIVE) COVID-19 (SHAZIA) (Negative) COVID-19 Clin Com Influenza Type A (ERIC) (Negative) Influenza Type B (ERIC) (Negative) Influenza A & B Note Blood Type Antibody Screen Crossmatch 09/08/22 09/08/22 09/08/22 Range/Units 21:29 21:29 21:29 WBC (4.8-10.8) X10*3/uL RBC (4.60-5.80) X10*6/uL Hgb (14.0-18.0) g/dl Hct (42.0-52.0) % MCV (80.0-98.0) fL MCH (27.0-33.0) pg MCHC (31.0-36.0) g/dl RDW (11.0-16.0) % Plt Count (160-400) X10*3/uL MPV (9.4-12.4) fL Immature Gran % (Auto) (0.0-0.4) % Neut % (Auto) (45-73) % Lymph % (Auto) (20-40) % Josephine % (Auto) (2-11) % Eos % (Auto) (0-4) % Baso % (Auto) (0-2) % Lymph # (Auto) (1.2-4.9) X10*3/uL Josephine # (Auto) (0.1-1.2) X10*3/uL Eos # (Auto) (0.0-0.4) X10*3/uL Baso # (Auto) (0.0-0.2) X10*3/uL Abs Immat Gran (auto) (0.00-0.03) X10*3/uL Absolute Neuts (auto) (2.0-8.3) x10*3/uL Absolute Nucleated RBC (0.0-0.012) X10*3/uL Nucleated RBC % (auto) (0.0-0.2) /100WBC PT (10.0-13.1) SEC INR (0.9-1.1) APTT (26.0-36.4) SEC Sodium (135-145) mmol/L Potassium (3.3-5.1) mmol/L Chloride (96-108) mmol/L Carbon Dioxide (22-29) mmol/L Anion Gap (12-20) BUN (9-16) mg/dL Creatinine (0.5-1.4) mg/dL Estim Creat Clear Calc Estimated GFR Random Glucose (60-115) mg/dL Osmolality (281-305) mosm/kg Calcium (8.4-10.2) mg/dL Magnesium (1.6-2.6) mg/dL Total Bilirubin (0.0-1.0) mg/dL AST (5-37) U/L ALT (0-40) U/L Alkaline Phosphatase (39-117) U/L Ammonia (13-55) umol/L Troponin I High Sens < 3.5 (<3.5-35.0) ng/L B-Natriuretic Peptide (<100) pg/mL Total Protein (6.5-8.0) g/dL Albumin (3.5-5.0) g/dL Urine Osmolality (373-1093) mosm/kg Ur Random Sodium mmol/L Ur Random Chloride mmol/L Stool Occult Blood (NEGATIVE) COVID-19 (SHAZIA) Negative (Negative) COVID-19 Clin Com See Note Influenza Type A (ERIC) Negative (Negative) Influenza Type B (ERIC) Negative (Negative) Influenza A & B Note See Note Blood Type Antibody Screen Crossmatch 09/08/22 09/08/22 09/08/22 Range/Units 21:29 22:52 23:29 WBC (4.8-10.8) X10*3/uL RBC (4.60-5.80) X10*6/uL Hgb (14.0-18.0) g/dl Hct (42.0-52.0) % MCV (80.0-98.0) fL MCH (27.0-33.0) pg MCHC (31.0-36.0) g/dl RDW (11.0-16.0) % Plt Count (160-400) X10*3/uL MPV (9.4-12.4) fL Immature Gran % (Auto) (0.0-0.4) % Neut % (Auto) (45-73) % Lymph % (Auto) (20-40) % Josephine % (Auto) (2-11) % Eos % (Auto) (0-4) % Baso % (Auto) (0-2) % Lymph # (Auto) (1.2-4.9) X10*3/uL Josephine # (Auto) (0.1-1.2) X10*3/uL Eos # (Auto) (0.0-0.4) X10*3/uL Baso # (Auto) (0.0-0.2) X10*3/uL Abs Immat Gran (auto) (0.00-0.03) X10*3/uL Absolute Neuts (auto) (2.0-8.3) x10*3/uL Absolute Nucleated RBC (0.0-0.012) X10*3/uL Nucleated RBC % (auto) (0.0-0.2) /100WBC PT (10.0-13.1) SEC INR (0.9-1.1) APTT (26.0-36.4) SEC Sodium (135-145) mmol/L Potassium (3.3-5.1) mmol/L Chloride (96-108) mmol/L Carbon Dioxide (22-29) mmol/L Anion Gap (12-20) BUN (9-16) mg/dL Creatinine (0.5-1.4) mg/dL Estim Creat Clear Calc Estimated GFR Random Glucose (60-115) mg/dL Osmolality 287 (281-305) mosm/kg Calcium (8.4-10.2) mg/dL Magnesium (1.6-2.6) mg/dL Total Bilirubin (0.0-1.0) mg/dL AST (5-37) U/L ALT (0-40) U/L Alkaline Phosphatase (39-117) U/L Ammonia (13-55) umol/L Troponin I High Sens (<3.5-35.0) ng/L B-Natriuretic Peptide (<100) pg/mL Total Protein (6.5-8.0) g/dL Albumin (3.5-5.0) g/dL Urine Osmolality (373-1093) mosm/kg Ur Random Sodium mmol/L Ur Random Chloride mmol/L Stool Occult Blood NEGATIVE (NEGATIVE) COVID-19 (SHAZIA) (Negative) COVID-19 Clin Com Influenza Type A (ERIC) (Negative) Influenza Type B (ERIC) (Negative) Influenza A & B Note Blood Type A Positive Antibody Screen NEGATIVE Crossmatch See Detail 09/08/22 09/08/22 09/09/22 Range/Units 23:29 23:29 00:18 WBC (4.8-10.8) X10*3/uL RBC (4.60-5.80) X10*6/uL Hgb (14.0-18.0) g/dl Hct (42.0-52.0) % MCV (80.0-98.0) fL MCH (27.0-33.0) pg MCHC (31.0-36.0) g/dl RDW (11.0-16.0) % Plt Count (160-400) X10*3/uL MPV (9.4-12.4) fL Immature Gran % (Auto) (0.0-0.4) % Neut % (Auto) (45-73) % Lymph % (Auto) (20-40) % Josephine % (Auto) (2-11) % Eos % (Auto) (0-4) % Baso % (Auto) (0-2) % Lymph # (Auto) (1.2-4.9) X10*3/uL Josephine # (Auto) (0.1-1.2) X10*3/uL Eos # (Auto) (0.0-0.4) X10*3/uL Baso # (Auto) (0.0-0.2) X10*3/uL Abs Immat Gran (auto) (0.00-0.03) X10*3/uL Absolute Neuts (auto) (2.0-8.3) x10*3/uL Absolute Nucleated RBC (0.0-0.012) X10*3/uL Nucleated RBC % (auto) (0.0-0.2) /100WBC PT 18.4 H (10.0-13.1) SEC INR 1.6 H (0.9-1.1) APTT 26.4 (26.0-36.4) SEC Sodium (135-145) mmol/L Potassium (3.3-5.1) mmol/L Chloride (96-108) mmol/L Carbon Dioxide (22-29) mmol/L Anion Gap (12-20) BUN (9-16) mg/dL Creatinine (0.5-1.4) mg/dL Estim Creat Clear Calc Estimated GFR Random Glucose (60-115) mg/dL Osmolality (281-305) mosm/kg Calcium (8.4-10.2) mg/dL Magnesium (1.6-2.6) mg/dL Total Bilirubin (0.0-1.0) mg/dL AST (5-37) U/L ALT (0-40) U/L Alkaline Phosphatase (39-117) U/L Ammonia 35 (13-55) umol/L Troponin I High Sens (<3.5-35.0) ng/L B-Natriuretic Peptide (<100) pg/mL Total Protein (6.5-8.0) g/dL Albumin (3.5-5.0) g/dL Urine Osmolality 533 (373-1093) mosm/kg Ur Random Sodium mmol/L Ur Random Chloride mmol/L Stool Occult Blood (NEGATIVE) COVID-19 (SHAZIA) (Negative) COVID-19 Clin Com Influenza Type A (ERIC) (Negative) Influenza Type B (ERIC) (Negative) Influenza A & B Note Blood Type Antibody Screen Crossmatch 09/09/22 09/09/22 Range/Units 00:18 01:31 WBC (4.8-10.8) X10*3/uL RBC (4.60-5.80) X10*6/uL Hgb (14.0-18.0) g/dl Hct (42.0-52.0) % MCV (80.0-98.0) fL MCH (27.0-33.0) pg MCHC (31.0-36.0) g/dl RDW (11.0-16.0) % Plt Count (160-400) X10*3/uL MPV (9.4-12.4) fL Immature Gran % (Auto) (0.0-0.4) % Neut % (Auto) (45-73) % Lymph % (Auto) (20-40) % Josephine % (Auto) (2-11) % Eos % (Auto) (0-4) % Baso % (Auto) (0-2) % Lymph # (Auto) (1.2-4.9) X10*3/uL Josephine # (Auto) (0.1-1.2) X10*3/uL Eos # (Auto) (0.0-0.4) X10*3/uL Baso # (Auto) (0.0-0.2) X10*3/uL Abs Immat Gran (auto) (0.00-0.03) X10*3/uL Absolute Neuts (auto) (2.0-8.3) x10*3/uL Absolute Nucleated RBC (0.0-0.012) X10*3/uL Nucleated RBC % (auto) (0.0-0.2) /100WBC PT (10.0-13.1) SEC INR (0.9-1.1) APTT (26.0-36.4) SEC Sodium 122 L (135-145) mmol/L Potassium 4.7 (3.3-5.1) mmol/L Chloride 93 L (96-108) mmol/L Carbon Dioxide 19 L (22-29) mmol/L Anion Gap 15 (12-20) BUN 29 H (9-16) mg/dL Creatinine 1.48 H (0.5-1.4) mg/dL Estim Creat Clear Calc 51.4 Estimated GFR 49 Random Glucose 405 H* (60-115) mg/dL Osmolality (281-305) mosm/kg Calcium 6.9 L (8.4-10.2) mg/dL Magnesium (1.6-2.6) mg/dL Total Bilirubin (0.0-1.0) mg/dL AST (5-37) U/L ALT (0-40) U/L Alkaline Phosphatase (39-117) U/L Ammonia (13-55) umol/L Troponin I High Sens (<3.5-35.0) ng/L B-Natriuretic Peptide (<100) pg/mL Total Protein (6.5-8.0) g/dL Albumin (3.5-5.0) g/dL Urine Osmolality (373-1093) mosm/kg Ur Random Sodium < 20.0 mmol/L Ur Random Chloride < 10.0 mmol/L Stool Occult Blood (NEGATIVE) COVID-19 (SHAZIA) (Negative) COVID-19 Clin Com Influenza Type A (ERIC) (Negative) Influenza Type B (ERIC) (Negative) Influenza A & B Note Blood Type Antibody Screen Crossmatch <JERI Bolton - Last Filed: 09/08/22 20:44> Lab Results 09/08/22 09/08/22 09/08/22 Range/Units 21:29 21:29 21:29 WBC 6.6 (4.8-10.8) X10*3/uL RBC 2.83 L D (4.60-5.80) X10*6/uL Hgb 7.6 L D (14.0-18.0) g/dl Hct 23.0 L D (42.0-52.0) % MCV 81.3 (80.0-98.0) fL MCH 26.9 L (27.0-33.0) pg MCHC 33.0 (31.0-36.0) g/dl RDW 18.1 H (11.0-16.0) % Plt Count 154 L D (160-400) X10*3/uL MPV 11.2 (9.4-12.4) fL Immature Gran % (Auto) 0.8 H (0.0-0.4) % Neut % (Auto) 72.2 (45-73) % Lymph % (Auto) 10.8 L (20-40) % Josephine % (Auto) 12.7 H (2-11) % Eos % (Auto) 2.9 (0-4) % Baso % (Auto) 0.6 (0-2) % Lymph # (Auto) 0.7 L (1.2-4.9) X10*3/uL Josephine # (Auto) 0.8 (0.1-1.2) X10*3/uL Eos # (Auto) 0.2 (0.0-0.4) X10*3/uL Baso # (Auto) 0.0 (0.0-0.2) X10*3/uL Abs Immat Gran (auto) 0.05 H (0.00-0.03) X10*3/uL Absolute Neuts (auto) 4.8 (2.0-8.3) x10*3/uL Absolute Nucleated RBC 0.000 (0.0-0.012) X10*3/uL Nucleated RBC % (auto) 0.0 (0.0-0.2) /100WBC PT (10.0-13.1) SEC INR (0.9-1.1) APTT (26.0-36.4) SEC Sodium 120 L* (135-145) mmol/L Potassium 5.8 H D (3.3-5.1) mmol/L Chloride 91 L (96-108) mmol/L Carbon Dioxide 23 (22-29) mmol/L Anion Gap 12 (12-20) BUN 30 H (9-16) mg/dL Creatinine 1.57 H (0.5-1.4) mg/dL Estim Creat Clear Calc 48.5 Estimated GFR 45 Random Glucose 506 H* (60-115) mg/dL Osmolality (281-305) mosm/kg Calcium 7.3 L D (8.4-10.2) mg/dL Magnesium 2.4 (1.6-2.6) mg/dL Total Bilirubin 2.4 H (0.0-1.0) mg/dL AST 65 H (5-37) U/L ALT 41 H (0-40) U/L Alkaline Phosphatase 242 H (39-117) U/L Ammonia (13-55) umol/L Troponin I High Sens (<3.5-35.0) ng/L B-Natriuretic Peptide 86 (<100) pg/mL Total Protein 6.1 L (6.5-8.0) g/dL Albumin 2.0 L (3.5-5.0) g/dL Urine Osmolality (373-1093) mosm/kg Ur Random Sodium mmol/L Ur Random Chloride mmol/L Stool Occult Blood (NEGATIVE) COVID-19 (SHAZIA) (Negative) COVID-19 Clin Com Influenza Type A (ERIC) (Negative) Influenza Type B (ERIC) (Negative) Influenza A & B Note Blood Type Antibody Screen Crossmatch 09/08/22 09/08/22 09/08/22 Range/Units 21:29 21:29 21:29 WBC (4.8-10.8) X10*3/uL RBC (4.60-5.80) X10*6/uL Hgb (14.0-18.0) g/dl Hct (42.0-52.0) % MCV (80.0-98.0) fL MCH (27.0-33.0) pg MCHC (31.0-36.0) g/dl RDW (11.0-16.0) % Plt Count (160-400) X10*3/uL MPV (9.4-12.4) fL Immature Gran % (Auto) (0.0-0.4) % Neut % (Auto) (45-73) % Lymph % (Auto) (20-40) % Josephine % (Auto) (2-11) % Eos % (Auto) (0-4) % Baso % (Auto) (0-2) % Lymph # (Auto) (1.2-4.9) X10*3/uL Josephine # (Auto) (0.1-1.2) X10*3/uL Eos # (Auto) (0.0-0.4) X10*3/uL Baso # (Auto) (0.0-0.2) X10*3/uL Abs Immat Gran (auto) (0.00-0.03) X10*3/uL Absolute Neuts (auto) (2.0-8.3) x10*3/uL Absolute Nucleated RBC (0.0-0.012) X10*3/uL Nucleated RBC % (auto) (0.0-0.2) /100WBC PT (10.0-13.1) SEC INR (0.9-1.1) APTT (26.0-36.4) SEC Sodium (135-145) mmol/L Potassium (3.3-5.1) mmol/L Chloride (96-108) mmol/L Carbon Dioxide (22-29) mmol/L Anion Gap (12-20) BUN (9-16) mg/dL Creatinine (0.5-1.4) mg/dL Estim Creat Clear Calc Estimated GFR Random Glucose (60-115) mg/dL Osmolality (281-305) mosm/kg Calcium (8.4-10.2) mg/dL Magnesium (1.6-2.6) mg/dL Total Bilirubin (0.0-1.0) mg/dL AST (5-37) U/L ALT (0-40) U/L Alkaline Phosphatase (39-117) U/L Ammonia (13-55) umol/L Troponin I High Sens < 3.5 (<3.5-35.0) ng/L B-Natriuretic Peptide (<100) pg/mL Total Protein (6.5-8.0) g/dL Albumin (3.5-5.0) g/dL Urine Osmolality (373-1093) mosm/kg Ur Random Sodium mmol/L Ur Random Chloride mmol/L Stool Occult Blood (NEGATIVE) COVID-19 (SHAZIA) Negative (Negative) COVID-19 Clin Com See Note Influenza Type A (ERIC) Negative (Negative) Influenza Type B (ERIC) Negative (Negative) Influenza A & B Note See Note Blood Type Antibody Screen Crossmatch 09/08/22 09/08/22 09/08/22 Range/Units 21:29 22:52 23:29 WBC (4.8-10.8) X10*3/uL RBC (4.60-5.80) X10*6/uL Hgb (14.0-18.0) g/dl Hct (42.0-52.0) % MCV (80.0-98.0) fL MCH (27.0-33.0) pg MCHC (31.0-36.0) g/dl RDW (11.0-16.0) % Plt Count (160-400) X10*3/uL MPV (9.4-12.4) fL Immature Gran % (Auto) (0.0-0.4) % Neut % (Auto) (45-73) % Lymph % (Auto) (20-40) % Josephine % (Auto) (2-11) % Eos % (Auto) (0-4) % Baso % (Auto) (0-2) % Lymph # (Auto) (1.2-4.9) X10*3/uL Josephine # (Auto) (0.1-1.2) X10*3/uL Eos # (Auto) (0.0-0.4) X10*3/uL Baso # (Auto) (0.0-0.2) X10*3/uL Abs Immat Gran (auto) (0.00-0.03) X10*3/uL Absolute Neuts (auto) (2.0-8.3) x10*3/uL Absolute Nucleated RBC (0.0-0.012) X10*3/uL Nucleated RBC % (auto) (0.0-0.2) /100WBC PT (10.0-13.1) SEC INR (0.9-1.1) APTT (26.0-36.4) SEC Sodium (135-145) mmol/L Potassium (3.3-5.1) mmol/L Chloride (96-108) mmol/L Carbon Dioxide (22-29) mmol/L Anion Gap (12-20) BUN (9-16) mg/dL Creatinine (0.5-1.4) mg/dL Estim Creat Clear Calc Estimated GFR Random Glucose (60-115) mg/dL Osmolality 287 (281-305) mosm/kg Calcium (8.4-10.2) mg/dL Magnesium (1.6-2.6) mg/dL Total Bilirubin (0.0-1.0) mg/dL AST (5-37) U/L ALT (0-40) U/L Alkaline Phosphatase (39-117) U/L Ammonia (13-55) umol/L Troponin I High Sens (<3.5-35.0) ng/L B-Natriuretic Peptide (<100) pg/mL Total Protein (6.5-8.0) g/dL Albumin (3.5-5.0) g/dL Urine Osmolality (373-1093) mosm/kg Ur Random Sodium mmol/L Ur Random Chloride mmol/L Stool Occult Blood NEGATIVE (NEGATIVE) COVID-19 (SHAZIA) (Negative) COVID-19 Clin Com Influenza Type A (ERIC) (Negative) Influenza Type B (ERIC) (Negative) Influenza A & B Note Blood Type A Positive Antibody Screen NEGATIVE Crossmatch See Detail 09/08/22 09/08/22 09/09/22 Range/Units 23:29 23:29 00:18 WBC (4.8-10.8) X10*3/uL RBC (4.60-5.80) X10*6/uL Hgb (14.0-18.0) g/dl Hct (42.0-52.0) % MCV (80.0-98.0) fL MCH (27.0-33.0) pg MCHC (31.0-36.0) g/dl RDW (11.0-16.0) % Plt Count (160-400) X10*3/uL MPV (9.4-12.4) fL Immature Gran % (Auto) (0.0-0.4) % Neut % (Auto) (45-73) % Lymph % (Auto) (20-40) % Josephine % (Auto) (2-11) % Eos % (Auto) (0-4) % Baso % (Auto) (0-2) % Lymph # (Auto) (1.2-4.9) X10*3/uL Josephine # (Auto) (0.1-1.2) X10*3/uL Eos # (Auto) (0.0-0.4) X10*3/uL Baso # (Auto) (0.0-0.2) X10*3/uL Abs Immat Gran (auto) (0.00-0.03) X10*3/uL Absolute Neuts (auto) (2.0-8.3) x10*3/uL Absolute Nucleated RBC (0.0-0.012) X10*3/uL Nucleated RBC % (auto) (0.0-0.2) /100WBC PT 18.4 H (10.0-13.1) SEC INR 1.6 H (0.9-1.1) APTT 26.4 (26.0-36.4) SEC Sodium (135-145) mmol/L Potassium (3.3-5.1) mmol/L Chloride (96-108) mmol/L Carbon Dioxide (22-29) mmol/L Anion Gap (12-20) BUN (9-16) mg/dL Creatinine (0.5-1.4) mg/dL Estim Creat Clear Calc Estimated GFR Random Glucose (60-115) mg/dL Osmolality (281-305) mosm/kg Calcium (8.4-10.2) mg/dL Magnesium (1.6-2.6) mg/dL Total Bilirubin (0.0-1.0) mg/dL AST (5-37) U/L ALT (0-40) U/L Alkaline Phosphatase (39-117) U/L Ammonia 35 (13-55) umol/L Troponin I High Sens (<3.5-35.0) ng/L B-Natriuretic Peptide (<100) pg/mL Total Protein (6.5-8.0) g/dL Albumin (3.5-5.0) g/dL Urine Osmolality 533 (373-1093) mosm/kg Ur Random Sodium mmol/L Ur Random Chloride mmol/L Stool Occult Blood (NEGATIVE) COVID-19 (SHAZIA) (Negative) COVID-19 Clin Com Influenza Type A (ERIC) (Negative) Influenza Type B (ERIC) (Negative) Influenza A & B Note Blood Type Antibody Screen Crossmatch 09/09/22 09/09/22 Range/Units 00:18 01:31 WBC (4.8-10.8) X10*3/uL RBC (4.60-5.80) X10*6/uL Hgb (14.0-18.0) g/dl Hct (42.0-52.0) % MCV (80.0-98.0) fL MCH (27.0-33.0) pg MCHC (31.0-36.0) g/dl RDW (11.0-16.0) % Plt Count (160-400) X10*3/uL MPV (9.4-12.4) fL Immature Gran % (Auto) (0.0-0.4) % Neut % (Auto) (45-73) % Lymph % (Auto) (20-40) % Josephine % (Auto) (2-11) % Eos % (Auto) (0-4) % Baso % (Auto) (0-2) % Lymph # (Auto) (1.2-4.9) X10*3/uL Josephine # (Auto) (0.1-1.2) X10*3/uL Eos # (Auto) (0.0-0.4) X10*3/uL Baso # (Auto) (0.0-0.2) X10*3/uL Abs Immat Gran (auto) (0.00-0.03) X10*3/uL Absolute Neuts (auto) (2.0-8.3) x10*3/uL Absolute Nucleated RBC (0.0-0.012) X10*3/uL Nucleated RBC % (auto) (0.0-0.2) /100WBC PT (10.0-13.1) SEC INR (0.9-1.1) APTT (26.0-36.4) SEC Sodium 122 L (135-145) mmol/L Potassium 4.7 (3.3-5.1) mmol/L Chloride 93 L (96-108) mmol/L Carbon Dioxide 19 L (22-29) mmol/L Anion Gap 15 (12-20) BUN 29 H (9-16) mg/dL Creatinine 1.48 H (0.5-1.4) mg/dL Estim Creat Clear Calc 51.4 Estimated GFR 49 Random Glucose 405 H* (60-115) mg/dL Osmolality (281-305) mosm/kg Calcium 6.9 L (8.4-10.2) mg/dL Magnesium (1.6-2.6) mg/dL Total Bilirubin (0.0-1.0) mg/dL AST (5-37) U/L ALT (0-40) U/L Alkaline Phosphatase (39-117) U/L Ammonia (13-55) umol/L Troponin I High Sens (<3.5-35.0) ng/L B-Natriuretic Peptide (<100) pg/mL Total Protein (6.5-8.0) g/dL Albumin (3.5-5.0) g/dL Urine Osmolality (373-1093) mosm/kg Ur Random Sodium < 20.0 mmol/L Ur Random Chloride < 10.0 mmol/L Stool Occult Blood (NEGATIVE) COVID-19 (SHAZIA) (Negative) COVID-19 Clin Com Influenza Type A (ERIC) (Negative) Influenza Type B (ERIC) (Negative) Influenza A & B Note Blood Type Antibody Screen Crossmatch <Arron Dunham MD - Last Filed: 09/09/22 05:24> Radiology Impression Discussion of test interpretation with radiology: I have reviewed the radiologist's reading. <Arron Dunham MD - Last Filed: 09/09/22 05:24> Radiologist Impression: CT/CT abdomen pelvis wo IV con IMPRESSION: *? Morphologically cirrhotic liver with large volume ascites and portosystemic collateralization as described. *? Splenomegaly. *? Scattered colonic diverticula without evidence of diverticulitis. ? <Arron Dunham MD - Last Filed: 09/09/22 05:24> Discharge Plan Discharge Clinical Impression: Cirrhosis of liver <JERI Bolton - Last Filed: 09/08/22 20:44> Patient Disposition: Admitted As Inpatient <JERI Bolton - Last Filed: 09/08/22 20:44> Interventions: Admission Worksheet (ED) Last Done: 09/09/22 04:30 <JERI Bolton - Last Filed: 09/08/22 20:44>
[2022-09-08 20:43] VITALS: BP 110/47; PULSE 80; RESP 18; TEMP 36.4; O2SAT 100; BMI 28.3
[2022-09-08 21:36] LABS: MANUAL DIFF FLAG NO
[2022-09-08 21:37] LABS: Basophils Percent Auto 0.6 % (0-2); Eosinophils Absolute Auto 0.2 X10*3/uL (0.0-0.4); Eosinophils Percent Auto 2.9 % (0-4); Hemoglobin 7.6 g/dl (14.0-18.0); Imm Gran Abs Auto 0.05 X10*3/uL (0.00-0.03); Imm Gran Pct Auto 0.8 % (0.0-0.4); Lymphocytes Absolute Auto 0.7 X10*3/uL (1.2-4.9); Lymphocytes Percent Auto 10.8 % (20-40); Mean Corpuscular Hemoglobin 26.9 pg (27.0-33.0); Mean Corpuscular Volume 81.3 fL (80.0-98.0); Mean Platelet Volume 11.2 fL (9.4-12.4); Monocytes Absolute Auto 0.8 X10*3/uL (0.1-1.2); Monocytes Percent Auto 12.7 % (2-11); Neutrophils Absolute Auto 4.8 x10*3/uL (2.0-8.3); Neutrophils Percent Auto 72.2 % (45-73); Platelet Count 154 X10*3/uL (160-400); Red Blood Count 2.83 X10*6/uL (4.60-5.80); Red Cell Distribution Width 18.1 % (11.0-16.0); White Blood Count 6.6 X10*3/uL (4.8-10.8)
[2022-09-08 21:58] LABS: B Type Natriuretic Peptide 86 pg/mL (<100)
[2022-09-08 22:04] LABS: COVID-19 Test Negative (Negative); IDNOW Serial# 6674DD1D
[2022-09-08 22:05] LABS: Troponin-I High Sensitivity < 3.5 ng/L (<3.5-35.0)
[2022-09-08 22:12] LABS: Alanine Aminotransferase 41 U/L (0-40); Alkaline Phosphatase 242 U/L (39-117); Anion Gap 12 (12-20); Aspartate Amino Transferase 65 U/L (5-37); Bilirubin Total 2.4 mg/dL (0.0-1.0); Blood Urea Nitrogen 30 mg/dL (9-16); Calcium 7.3 mg/dL (8.4-10.2); Carbon Dioxide 23 mmol/L (22-29); Chloride 91 mmol/L (96-108); Creatinine Clr Calc Pharmacy 48.5; Estimated Glomerular Filt Rate 45; Glucose Random 506 mg/dL (60-115); Magnesium 2.4 mg/dL (1.6-2.6); Potassium 5.8 mmol/L (3.3-5.1); Sodium 120 mmol/L (135-145); Total Protein 6.1 g/dL (6.5-8.0)
--- NOTE | 2022-09-08 22:22 | PC.NURSE ---
pt c/o abd pain provider aware significant umbilical hernia observed MD aware
[2022-09-08 22:49] LABS: IDNOW Serial# 55D5AD1C; Influenza A Negative (Negative); Influenza B2 Negative (Negative)
[2022-09-08 22:59] LABS: Osmolality, Serum 287 mosm/kg (281-305)
[2022-09-08 22:59] LABS: OBS Int Ctl Valid YES; OBS1 NEGATIVE (NEGATIVE)
[2022-09-08 23:44] LABS: INTERNATIONAL NORM RATIO 1.6 (0.9-1.1); Prothrombin Time 18.4 SEC (10.0-13.1)
[2022-09-08 23:46] LABS: Partial Thromboplastin Time 26.4 SEC (26.0-36.4)
[2022-09-08] MEDS: 0.9 % Sodium Chloride 1,000 ML 999 ML IV (23:46)
--- NOTE | 2022-09-08 23:46 | PC.NURSE ---
med rec completed
[2022-09-08 23:50] LABS: Ammonia 35 umol/L (13-55)
[2022-09-09] VITALS (15 sets, daily range): BP systolic 91–116; BP diastolic 53–59; PULSE 80–93; RESP 12–18; TEMP 36.2–36.9; O2SAT 94–96; BMI 29.9
[2022-09-09] MEDS: Insulin Lispro 100 UNIT/ML 3 ML VIAL 14 UNIT SUBCUT (00:08)
[2022-09-09] MEDS: Pantoprazole Sodium 40 MG/10 ML VIAL IVPUSH ×2 (00:08→17:19)
[2022-09-09 00:40] LABS: Osmolality Urine 533 mosm/kg (373-1093)
[2022-09-09 00:41] LABS: Sodium Urine Random < 20.0 mmol/L
[2022-09-09 00:46] LABS: Chloride Urine Random < 10.0 mmol/L
--- NOTE | 2022-09-09 00:51 | PC.NURSE ---
Pt aox3 resting at the bedside. One unit of RBC's started infusing. Pt tolerating well. Will continue to monitor at the bedside. Pt aware of plan of care.
--- NOTE | 2022-09-09 01:04 | PC.NURSE ---
Pt aox3 resting at the bedside. Breaths are even regular and unlabored. NSR on monitor with HR 81. No apparent distress noted. Tolerating blood transfusion. No blood reaction noted. Will continue to monitor.
[2022-09-09 01:53] LABS: Anion Gap 15 (12-20); Blood Urea Nitrogen 29 mg/dL (9-16); Calcium 6.9 mg/dL (8.4-10.2); Carbon Dioxide 19 mmol/L (22-29); Chloride 93 mmol/L (96-108); Creatinine Clr Calc Pharmacy 51.4; Estimated Glomerular Filt Rate 49; Glucose Random 405 mg/dL (60-115); Potassium 4.7 mmol/L (3.3-5.1); Sodium 122 mmol/L (135-145)
[2022-09-09] MEDS: Furosemide 40 MG/4 ML VIAL 20 MG IVPUSH (01:58)
[2022-09-09] MEDS: 0.9 % Sodium Chloride 500 ML 50 ML IV (02:02)
--- NOTE | 2022-09-09 02:04 | PM.IMHP ---
History of Present Illness Date of Service: 09/09/22 Chief Complaint: weakness 57-year-old male with past medical history of liver cirrhosis, secondary to alcohol abuse /hepatitis, diabetes, history of CAD, HTN, history of esophageal varices who presents to the hospital with complaints of weakness, SOB, cough, abd distension for the past several weeks worsening over the last week. Patient states that he has not followed up with PCP in 5-6 months, and has not taken his insulin for about a week. When asked about review of system he does endorse shortness of breath, cough, no chest pain, no palpitations. He does report abdominal pain due to distension which is chronic, has not worsened, denies any fever no chills, denies any urinary symptoms and reports chronic lower extremity edema that has not worsened. Patient also states that he had 2 episodes of black stools for the past 2 days with no hematemesis, or hemoptysis. On arrival to the ED patient found to have a blood pressure of 110/ 47 Labs are significant for WBC count of 6.6, hemoglobin of 7.6 which dropped from 11.3 in May, hematocrit 23 INR of 1.6, sodium of 120, potassium 5.8, chloride of 91, creatinine of 1.57, glucose of 506, asthma Wsathi of 287, total bili of 2.4, AST of 65, ALT of 41, alk-phos of 242 which are relatively the same as previous, troponin negative, ammonia of 35, BNP of 86 albumin of 2.0 chest x-ray shows bilateral linear atelectasis with no evidence of pneumonia or pulmonary edema Abdominal pelvic CT shows bases of the lungs are clear, morphologically cirrhotic liver with large volume ascites and portosystemic collateralization patient started on IV fluids, in ED and will be admitted for further management Review of Systems Review of Systems: Yes all other systems are reviewed and are negative [facility] Medical History Cirrhosis Diabetes Elevated cholesterol Hepatitis History of alcohol abuse HTN (hypertension) Myocardial infarction Varices, esophageal Surgical History H/O colonoscopy History of esophagogastroduodenoscopy (EGD) History of PTCA Hx of elbow surgery Hx of hand surgery Social History Household Members: None Housing: Apartment Do you presently have visiting nurse or other home services: No Alcohol intake: never Patient Tobacco Use Status: Former Tobacco user Tobacco use type: Cigarette Second Hand Smoke Exposure: No Meds Allergies Allergy/AdvReac Type Severity Reaction Status Date / Time codeine [CODEINE] Allergy Mild ITCHINESS, Verified 09/08/22 20:47 itching penicillin G Allergy Mild itching Verified 09/08/22 20:47 Active Medications: Current Medications Albumin Human (Kedbumin 25 %) 100 mls @ 100 mls/hr IV Q1H IVELISSE Stop: 09/09/22 02:44 Home Medications Medication Instructions Recorded Confirmed Last Taken Type atorvastatin 20 mg tablet 20 mg PO DAILY 06/29/20 06/29/20 Unknown History dapagliflozin 10 mg tablet 10 mg PO DAILY 06/29/20 06/29/20 Unknown History ([facility]) insulin glargine 100 unit/mL (3 70 unit subcut DAILY 06/29/20 07/05/20 07/04/20 12:00 History mL) subcutaneous pen (Lantus 1/2 dose ( 40 Solostar U-100 Insulin) units0 metformin 500 mg tablet,extended 1,000 mg PO BID 06/29/20 06/29/20 Unknown History release 24 hr nadolol 40 mg tablet 1.5 tab PO DAILY 06/29/20 06/29/20 Unknown History omeprazole 20 mg capsule,delayed 20 mg PO DAILY 06/29/20 06/29/20 Unknown History release Physical Exam Vital Signs and Narrative: Vital Signs: Last Vital Signs Temp 98.1 F 09/09/22 01:04 Pulse 80 09/09/22 01:04 Resp 14 09/09/22 01:04 BP 95/56 L 09/09/22 01:04 Pulse Ox 100 09/08/22 20:43 O2 Del Method Room Air 09/08/22 20:43 BMI result Body Mass Index 28.3 Const: Other: muscle wasting, cachectic General: cooperative and no acute distress Orientation/consciousness: patient oriented x3 Eyes: General: appearance normal, both eyes and all related structures Resp: Effort & Inspection: normal respiratory effort Auscultation: clear to auscultation bilaterally Cardio: Rate: regular rate Rhythm: regular rhythm GI: Other: abdomen is distended 3+, tender to palpation, no rebound or guarding Palpation (GI): Soft to palpation Auscultation: normal bowel sounds Skin: General skin exam: no rashes or lesions noted Neuro: General: patient oriented x3 Cognition (Neuro): normal cognition Extrem: Other: 2+ pedal edema General: Yes normal to inspection Results Labs 09/08/22 21:29 09/09/22 01:31 Labs: Laboratory Results - last 24 hr 09/08/22 09/08/22 09/08/22 21:29 21:29 21:29 MCV 81.3 MCH 26.9 L MCHC 33.0 RDW 18.1 H Plt Count 154 L D MPV 11.2 Immature Gran % (Auto) 0.8 H Neut % (Auto) 72.2 Lymph % (Auto) 10.8 L [place] % (Auto) 12.7 H Eos % (Auto) 2.9 Baso % (Auto) 0.6 Lymph # (Auto) 0.7 L [place] # (Auto) 0.8 Eos # (Auto) 0.2 Baso # (Auto) 0.0 Abs Immat Gran (auto) 0.05 H Absolute Neuts (auto) 4.8 Absolute Nucleated RBC 0.000 Nucleated RBC % (auto) 0.0 PT INR APTT Anion Gap 12 Estim Creat Clear Calc 48.5 Estimated GFR 45 Random Glucose 506 H* Osmolality Calcium 7.3 L D Magnesium 2.4 Total Bilirubin 2.4 H AST 65 H ALT 41 H Alkaline Phosphatase 242 H Ammonia Troponin I High Sens B-Natriuretic Peptide 86 Total Protein 6.1 L Albumin 2.0 L Urine Osmolality Ur Random Sodium Ur Random Chloride Stool Occult Blood COVID-19 (SHAZIA) COVID-19 Clin Com Influenza Type A (ERIC) Influenza Type B (ERIC) Influenza A & B Note Blood Type Antibody Screen Crossmatch 09/08/22 09/08/22 09/08/22 21:29 21:29 21:29 MCV MCH MCHC RDW Plt Count MPV Immature Gran % (Auto) Neut % (Auto) Lymph % (Auto) [place] % (Auto) Eos % (Auto) Baso % (Auto) Lymph # (Auto) [place] # (Auto) Eos # (Auto) Baso # (Auto) Abs Immat Gran (auto) Absolute Neuts (auto) Absolute Nucleated RBC Nucleated RBC % (auto) PT INR APTT Anion Gap Estim Creat Clear Calc Estimated GFR Random Glucose Osmolality Calcium Magnesium Total Bilirubin AST ALT Alkaline Phosphatase Ammonia Troponin I High Sens < 3.5 B-Natriuretic Peptide Total Protein Albumin Urine Osmolality Ur Random Sodium Ur Random Chloride Stool Occult Blood COVID-19 (SHAZIA) Negative COVID-19 Clin Com See Note Influenza Type A (ERIC) Negative Influenza Type B (ERIC) Negative Influenza A & B Note See Note Blood Type Antibody Screen Crossmatch 09/08/22 09/08/22 09/08/22 21:29 22:52 23:29 MCV MCH MCHC RDW Plt Count MPV Immature Gran % (Auto) Neut % (Auto) Lymph % (Auto) [place] % (Auto) Eos % (Auto) Baso % (Auto) Lymph # (Auto) [place] # (Auto) Eos # (Auto) Baso # (Auto) Abs Immat Gran (auto) Absolute Neuts (auto) Absolute Nucleated RBC Nucleated RBC % (auto) PT INR APTT Anion Gap Estim Creat Clear Calc Estimated GFR Random Glucose Osmolality 287 Calcium Magnesium Total Bilirubin AST ALT Alkaline Phosphatase Ammonia Troponin I High Sens B-Natriuretic Peptide Total Protein Albumin Urine Osmolality Ur Random Sodium Ur Random Chloride Stool Occult Blood NEGATIVE COVID-19 (SHAZIA) COVID-19 Clin Com Influenza Type A (ERIC) Influenza Type B (ERIC) Influenza A & B Note Blood Type A Positive Antibody Screen NEGATIVE Crossmatch See Detail 09/08/22 09/08/22 09/09/22 23:29 23:29 00:18 MCV MCH MCHC RDW Plt Count MPV Immature Gran % (Auto) Neut % (Auto) Lymph % (Auto) [place] % (Auto) Eos % (Auto) Baso % (Auto) Lymph # (Auto) [place] # (Auto) Eos # (Auto) Baso # (Auto) Abs Immat Gran (auto) Absolute Neuts (auto) Absolute Nucleated RBC Nucleated RBC % (auto) PT 18.4 H INR 1.6 H APTT 26.4 Anion Gap Estim Creat Clear Calc Estimated GFR Random Glucose Osmolality Calcium Magnesium Total Bilirubin AST ALT Alkaline Phosphatase Ammonia 35 Troponin I High Sens B-Natriuretic Peptide Total Protein Albumin Urine Osmolality 533 Ur Random Sodium Ur Random Chloride Stool Occult Blood COVID-19 (SHAZIA) COVID-19 Clin Com Influenza Type A (ERIC) Influenza Type B (ERIC) Influenza A & B Note Blood Type Antibody Screen Crossmatch 09/09/22 09/09/22 00:18 01:31 MCV MCH MCHC RDW Plt Count MPV Immature Gran % (Auto) Neut % (Auto) Lymph % (Auto) [place] % (Auto) Eos % (Auto) Baso % (Auto) Lymph # (Auto) [place] # (Auto) Eos # (Auto) Baso # (Auto) Abs Immat Gran (auto) Absolute Neuts (auto) Absolute Nucleated RBC Nucleated RBC % (auto) PT INR APTT Anion Gap 15 Estim Creat Clear Calc 51.4 Estimated GFR 49 Random Glucose 405 H* Osmolality Calcium 6.9 L Magnesium Total Bilirubin AST ALT Alkaline Phosphatase Ammonia Troponin I High Sens B-Natriuretic Peptide Total Protein Albumin Urine Osmolality Ur Random Sodium < 20.0 Ur Random Chloride < 10.0 Stool Occult Blood COVID-19 (SHAZIA) COVID-19 Clin Com Influenza Type A (ERIC) Influenza Type B (ERIC) Influenza A & B Note Blood Type Antibody Screen Crossmatch Imaging Radiologist's Impressions: Impressions Chest X-Ray 09/08/22 20:57 IMPRESSION: Bilateral linear atelectasis. No radiographic evidence of pneumonia or pulmonary edema. Assessment and Plan (1) Acute hyponatremia: Status: Acute (2) Hyperglycemia due to diabetes mellitus: Status: Acute (3) Abdominal ascites: Status: Acute (4) Acute kidney injury superimposed on CKD: Status: Acute (5) Normocytic anemia: Status: Acute (6) Black stools: Status: Acute (7) Acute UTI: Status: Acute Plan 57-year-old male with past medical history of liver cirrhosis, diabetes, noncompliant with his medications presents to the hospital with complaints of weakness, shortness of breath, and generally not feeling well to have multiple complications # acute on chronic hyponatremia - baseline around 128-130 - possibly secondary to hypervolemic hyponatremia in the setting of ascites - serum osmolality to 280s, urine osmolality 533, random urine less than 20, suggestive of cirrhosis causing hyponatremia - patient given fluids initially in the ED, followed by furosemide and albumin - sodium has improved, - will hold fluids at this time, follow BMP q.6 hours - nephrology consulted - goal to increase 6-8 in the next 24 hours # hyperglycemia - secondary to noncompliance with diabetic management - will place on low-dose sliding scale insulin - diabetic diet -POC q.i.d. a.c. HS # liver cirrhosis/ abdominal distension/ascites - no concern for SBP at this time, has no fever, no leukocytosis, abdomen is tender but chronically likely secondary to ascites - IR consulted for paracentesis # UTI - positive UA - complaining of weakness - will treat empirically with ceftriaxone - follow cultures # normocytic anemia - acute on chronic with a baseline around 11, comes in with hemoglobin of 7 - possibly secondary to GI bleed - no evidence of GI bleed at this time - hemodynamically stable - receiving 1 unit of PRBC - follow CBC - GI consulted # CAROL ANN - acute on chronic - likely hepatorenal - patient is given fluids for this time will hold given hyponatremia in the setting of hypervolemia - follow BMP - nephrology on consult DVT prophylaxis: Lovenox given patient's need for further evaluation for the above-mentioned complications patient required minimum 2 night inpatient hospital stay for the management monitoring Time Spent With Patient Time: Total time managing care of this patient today ____ minutes. Quality Stroke Does the patient have a stroke diagnosis?: No VTE Prior VTE?: No VTE Risk Level:: Medical - moderate - high VTE Device Contraindication: Treatment Not Indicated VTE Drug Contraindication: N/A - Med Ordered
[2022-09-09 02:27] LABS: Appearance Urine Clear; Color Urine Yellow; Glucose Urine UA >=1000 mg/dL (Negative); Leukocyte Esterase Urine Trace (Negative); Nitrite Urine Positive (Negative); PH 5.5 (5.0-9.0); Specific Gravity - Urine 1.015 (1.005-1.025); UMIC TRIGGER UACC YES; Urine Blood Negative (Negative); Urine Ketones Negative (Negative); Urine Protein Negative (Neg-Trace)
[2022-09-09 02:30] LABS: Glucose, Whole Blood 328 mg/dL (60-115)
[2022-09-09 02:32] LABS: Bacteria Urine 4+ (None Seen); Hyaline Casts Urine 0-2 /LPF (0-2); RBC Urine 0-2 /HPF (0-2); Squamous Epithelial Cell Urine 0-2 /HPF (0-2); UACC Culture Trigger YES
[2022-09-09] MEDS: Albumin Human 25 % 100 ML IV ×4 (02:33→22:58)
[2022-09-09 02:41] LABS: Anion Gap 14 (12-20); Blood Urea Nitrogen 28 mg/dL (9-16); Carbon Dioxide 22 mmol/L (22-29); Chloride 93 mmol/L (96-108); Creatinine Clr Calc Pharmacy 50.8; Estimated Glomerular Filt Rate 48; Glucose Random 328 mg/dL (60-115); Potassium 5.3 mmol/L (3.3-5.1); Sodium 124 mmol/L (135-145)
[2022-09-09] MEDS: Insulin Lispro 100 UNIT/ML 3 ML VIAL SUBCUT ×5 (03:22→20:25)
--- NOTE | 2022-09-09 04:39 | PC.NURSE ---
blood transfusion ended at 09/09/22 0215 350 mL intake End vitals documented under TAR for 021
--- NOTE | 2022-09-09 05:17 | PC.NURSE ---
unable to complete med re with patient pt noncompliant with meds pt unsure what he has been prescribed spoke to Dr Granados about the matter and pharmacy will be able to complete med rec this morning
--- NOTE | 2022-09-09 05:25 | PC.NURSE ---
pt appears to be jaundice, abdomen distended, umbilical hernia observed, pt edematous to bilat feet, pt denies n/v at this time
[2022-09-09] MEDS: Enoxaparin Sodium 40 MG/0.4 ML SYRINGE SUBCUT (06:17)
[2022-09-09] MEDS: cefTRIAXone sodium 1 GM in 0.9 % Sodium Chloride 50 ML IV (06:17)
--- NOTE | 2022-09-09 06:34 | PC.NURSE ---
PATIENT IS A 57 YEAR OLD MALE ADMITTED TO [place] [id number] VIA STRETCHER FROM ED WITH A DX: ACUTE ANEMIA, HYPONATREMIA. A/O X 3, COLOR GOOD , SLIGHTLY JAUNDICE APPEARING, LUNG EDWARDS DIM IN BASES, NOT STATED PAIN, NO HEADACHE, NAUSEA, OR FEELING DIZZY. ADMISSION QUESTIONS ANSWERED, PT ANXIOUS TO GET TO SLEEP HE STATED AWAKE ALL NIGHT IN ED. ABDOMEN NOTE ROUND, DISTENDED, TENDER, AND UMBILICAL HERNIA PRESENT WHICH PT STSTED IS NOT NEW. LAST BM 09/07/22. #18 GAUGE TO LEFT AC, HOSPITALIST DISCONTINUED IVFS UPON TRANSFER. BASEBALL HAND SEWER LOWER LEG AND ANKLE EDEMA PRESENT. EDUCATED TO CALL MATOS USE, BED CONTROLS, SAFETY, AND PLAN OF CARE. HOSPITALSIT ENTERED A GI CONSULT, NEPHROLOGY CONSULT, AND ULTRASOUND GUIDED PARACENTESIS PROCEDURE.
[2022-09-09 07:13] LABS: MANUAL DIFF FLAG NO
--- NOTE | 2022-09-09 07:16 | PM.EVENT ---
Documented by User: Tammie Jerez NP 09/09/22 08:37 Event Note Date of Service: 09/09/22 Event Note: 57-year-old male with past medical history of liver? cirrhosis, diabetes, noncompliant with his medications presents to the hospital with complaints of weakness, shortness of breath, and generally not feeling well to have multiple complications acute on chronic hyponatremia. Improving baseline around 128-130 possibly secondary to hypervolemic? hyponatremia in the setting of ascites serum osmolality to 280s, urine osmolality 533, random urine less than 20,?suggestive of cirrhosis causing hyponatremia patient given fluids initially in the ED, followed by furosemide and albumin will hold fluids at this time,? follow BMP q.6 hours nephrology consulted goal to increase 6-8 in the next 24 hours Diabetes 2 with hyperglycemia secondary to noncompliance with diabetic? management will place on low-dose sliding scale insulin diabetic diet liver cirrhosis/ abdominal distension/ascites no concern for SBP at this time, has no fever, no leukocytosis, abdomen is tender but chronically likely secondary to ascites IR consulted for paracentesis UTI positive UA complaining of weakness will treat empirically with ceftriaxone follow cultures normocytic anemia acute on chronic with a baseline around 11, comes in with?hemoglobin? of 7, now down 6.5/19.2 possibly secondary to GI bleed received 1 unit of PRBC in ED GI consulted repeat HH still low, ordered another unit of PRBC HH post transfusion CAROL ANN likely hepatorenal patient is given fluids for this time will hold given hyponatremia in the setting of hypervolemia follow BMP nephrology on consult DVT prophylaxis:? Lovenox given patient's need for further evaluation for the above-mentioned complications patient required minimum 2 night inpatient hospital stay for the management monitoring Time Spent With Patient Time: Total time managing care of this patient today ____ minutes. Documented by User: Yonis Obregon MD 09/16/22 09:15 Event Note Date of Service: 09/16/22
[2022-09-09 07:18] LABS: Glucose, Whole Blood 233 mg/dL (60-115)
[2022-09-09 07:25] LABS: Basophils Percent Auto 0.3 % (0-2); Eosinophils Absolute Auto 0.2 X10*3/uL (0.0-0.4); Eosinophils Percent Auto 4.4 % (0-4); Imm Gran Abs Auto 0.02 X10*3/uL (0.00-0.03); Imm Gran Pct Auto 0.5 % (0.0-0.4); Lymphocytes Absolute Auto 0.6 X10*3/uL (1.2-4.9); Lymphocytes Percent Auto 16.3 % (20-40); Mean Corpuscular HGB Conc 33.9 g/dl (31.0-36.0); Mean Corpuscular Hemoglobin 26.9 pg (27.0-33.0); Mean Corpuscular Volume 79.3 fL (80.0-98.0); Mean Platelet Volume 11.7 fL (9.4-12.4); Monocytes Absolute Auto 0.5 X10*3/uL (0.1-1.2); Neutrophils Absolute Auto 2.5 x10*3/uL (2.0-8.3); Neutrophils Percent Auto 64.5 % (45-73); Red Blood Count 2.42 X10*6/uL (4.60-5.80); Red Cell Distribution Width 17.5 % (11.0-16.0); White Blood Count 3.9 X10*3/uL (4.8-10.8)
[2022-09-09 07:43] LABS: Anion Gap 10 (12-20); Blood Urea Nitrogen 28 mg/dL (9-16); Calcium 7.2 mg/dL (8.4-10.2); Carbon Dioxide 24 mmol/L (22-29); Chloride 96 mmol/L (96-108); Creatinine Clr Calc Pharmacy 52.9; Estimated Glomerular Filt Rate 49; Glucose Random 238 mg/dL (60-115); Potassium 4.2 mmol/L (3.3-5.1); Sodium 126 mmol/L (135-145)
--- NOTE | 2022-09-09 07:44 | PHA.MEDREC ---
Pharmacy Consult ? Medication Reconciliation Pharmacy has completed the medication reconciliation. Patient had RX bottles of medications. Patient reported insulin and dose. Patient also reported that trazodone is too strong and would like something else for sleep. Jodi Obando, PharmD
[2022-09-09 07:46] LABS: B Type Natriuretic Peptide 101 pg/mL (<100)
[2022-09-09 08:04] LABS: Hemoglobin 6.5 g/dl (14.0-18.0)
[2022-09-09 08:05] LABS: Hematocrit 19.2 % (42.0-52.0); Platelet Count 86 X10*3/uL (160-400)
[2022-09-09] MEDS: Omeprazole 20 MG CAPSULE.DR PO (08:38)
[2022-09-09] MEDS: 0.9 % Sodium Chloride Flush 3 ML SYRINGE IVFLUSH ×3 (10:28→20:28)
[2022-09-09 10:30] LABS: Anion Gap 12 (12-20); Blood Urea Nitrogen 29 mg/dL (9-16); Calcium 7.4 mg/dL (8.4-10.2); Carbon Dioxide 21 mmol/L (22-29); Chloride 97 mmol/L (96-108); Creatinine Clr Calc Pharmacy 51.1; Estimated Glomerular Filt Rate 47; Glucose Random 300 mg/dL (60-115); Potassium 4.2 mmol/L (3.3-5.1); Sodium 126 mmol/L (135-145)
[2022-09-09 11:18] LABS: Glucose, Whole Blood 349 mg/dL (60-115)
--- NOTE | 2022-09-09 11:39 | MHC.CM.PN ---
Male 57 DX hyponatremia Acute Anemia Patient lives alone. He is independent with all functional mobility.He has been vaxxed for covid. A new HCP has been documented. Copies have been given to the pt. The original placed on chart. DP home self care. Patient will arrange for transportation.
[2022-09-09 15:36] LABS: Anion Gap 9 (12-20); Blood Urea Nitrogen 28 mg/dL (9-16); Calcium 7.3 mg/dL (8.4-10.2); Carbon Dioxide 25 mmol/L (22-29); Chloride 97 mmol/L (96-108); Creatinine Clr Calc Pharmacy 52.9; Estimated Glomerular Filt Rate 49; Glucose Random 275 mg/dL (60-115); Potassium 4.4 mmol/L (3.3-5.1); Sodium 127 mmol/L (135-145)
--- NOTE | 2022-09-09 16:11 | HO.RADPN ---
RADIOLOGY Narrative Narrative: LLQ large volume paracentesis. No specimen sent.
[2022-09-09] MEDS: Lidocaine HCl 1 % MPF 5 ML VIAL SUBCUT (16:32)
[2022-09-09 16:56] LABS: Glucose, Whole Blood 269 mg/dL (60-115)
--- NOTE | 2022-09-09 16:56 | MHC.SHP ---
Pre-Procedural Eval Section A Date of Service: 09/10/22 The patient is an INPATIENT: Yes The History & Physical has been completed within 30 days and I have reviewed it.: Yes Section B Chief Complaint: acute anemia, hyponatremia Allergies: Allergies Allergy/AdvReac Type Severity Reaction Status Date / Time codeine [CODEINE] Allergy Mild ITCHINESS, Verified 09/08/22 20:47 itching penicillin G Allergy Mild itching Verified 09/08/22 20:47 Plan I have reviewed the history and physical and performed a pertinent physical examination on my patient. No changes have occurred unless specified. Time Spent With Patient Time: Total time managing care of this patient today ____ minutes.
--- NOTE | 2022-09-09 16:56 | PM.EVENT ---
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 He has been followed by Dr. Jo at [facility] as well and is reportedly listed for transplant. He has had previous banding of esophageal varices in 05/2020 and 06/2020. He has had problems with ascites, edema, poorly controlled diabetes, and I suspect relative noncompliance with meds. He now presents with increasing ascites, edema, recent melena, and anemia. He denies N/V, abdominal pain, fevers, increased GERD, dysphagia, hematochezia, EtOH use, aspirin nor NSAIDs use, nor smoking. He just had a paracentesis with removal of 5L of yellow and clear fluid. Rec: EGD tomorrow with me or Dr. Miller. Full consent obtained for this, including risks of bleeding and perforation. IV PPI, dose of IV Vit K, F/U labs in AM, and transfuse PRN. Continue diuretics and F/U chemistries. Check ammonia level and treat accordingly. D/W patient and he is comfortable with this plan. Thanks Time Spent With Patient Time: Total time managing care of this patient today ____ minutes.
[2022-09-09] MEDS: Phytonadione (Vit K1) 10 MG in 0.9 % Sodium Chloride 50 ML 51 MG IV (17:54)
[2022-09-09 20:20] LABS: Glucose, Whole Blood 365 mg/dL (60-115)
[2022-09-10] VITALS (12 sets, daily range): BP systolic 76–120; BP diastolic 36–58; PULSE 73–100; RESP 16–18; TEMP 36.3–37.1; O2SAT 95–100
--- NOTE | 2022-09-10 01:07 | CONS_ITS ---
DATE OF SERVICE: REASON FOR CONSULTATION: I was asked to see the patient to assist in evaluation and management of patient's hyponatremia as reflected by serum sodium of 120 on admission that has increased today up to 126 along with acute kidney injury as reflected by creatinine at 1.53 today for his baseline creatinine usually 0.9 to 1.0 on the backdrop of liver cirrhosis and ascites. HISTORY OF PRESENT ILLNESS: In summary, patient is a 57-year-old gentleman with a history of liver cirrhosis secondary to alcohol abuse, hepatitis, diabetes, coronary artery disease, hypertension, esophageal varices, who presents to the hospital complaining of generalized weakness along with shortness of breath, cough, and abdominal distention that has been going on for the past several weeks. Patient apparently has been poorly compliant, not taking his insulin. He tells me in the past he has had large volume paracentesis done intermittently. As mentioned on admission, he had metabolic abnormalities with a sodium 120, potassium of 5.8, creatinine 1.57, and hemoglobin of 7.6. He is currently getting a blood transfusion and is feeling a little bit better. PAST MEDICAL HISTORY: As mentioned includes diabetes, cirrhosis, hepatitis, history of alcohol abuse, hypertension, coronary artery disease, and esophageal varices. MEDICATIONS: His medications on admission listed including Lipitor, Farxiga, insulin, metformin, nadolol and Prilosec. His current medications noted in the MAR. ALLERGIES: HE HAS ALLERGIES TO CODEINE AND PENICILLIN LISTED. SOCIAL HISTORY: He is a former cigarette smoker. History of alcohol abuse, unclear when he stopped drinking alcohol. He tells me not drinking for quite some time, although the details are unclear. FAMILY HISTORY: Noncontributory. REVIEW OF SYSTEMS: As noted above. PHYSICAL EXAMINATION: VITAL SIGNS: Blood pressure 106/60 with a heart rate in the 70s. HEAD: Atraumatic and normocephalic. NECK: Supple. Mucous membranes are moist. LUNGS: Breath sounds decreased at the bases. CARDIAC: Regular rate and rhythm. ABDOMEN: Distended with ascites. EXTREMITIES: Show 1+ edema. Chest x-ray on admission showed some atelectasis. CT of the abdomen showed evidence of large volume ascites and a cirrhotic liver. LABORATORY DATA: Labs from today showed hemoglobin 6.5, hematocrit 19.2, white blood cell count 3.9. He is getting a transfusion as mentioned. Platelet count 86,000. Looks like his hemoglobin back the end of last year was running 11 to 12 range. Sodium of 126, potassium 4.2, chloride 97, bicarb 21, BUN 29, creatinine 1.5. As mentioned, his creatinine typically was 1.0 in the past. On admission, serum sodium was 120. He had urine studies, which showed the urine sodium less than 20, urine Osmo 533. IMPRESSION: 57-YEAR-OLD CIRRHOTIC, HISTORY OF ALCOHOL ABUSE, DIABETIC WITH ACUTE KIDNEY INJURY AND SEVERE HYPONATREMIA. 1. Hyponatremia. Patient has hypervolemic hyponatremia along with hyperglycemia, which is playing a role. His blood sugar was 506 on admission with a serum sodium of 120, so his corrected serum sodium would be more like 127. Patients with cirrhosis like what he has have decreased effective arterial volume and therefore increased nonosmotic ADH causing dilutional hyponatremia in the setting of hypervolemia. 2. Acute kidney injury. Bump in creatinine is concerning and most likely represents again decreased effective arterial volume. Hopefully, it is reversible by just giving him some IV albumin. We may need to add midodrine and octreotide if his renal function does not respond simply to the IV albumin. 3. Hypervolemia. This is due to his liver cirrhosis and portal hypertension. RECOMMENDATIONS: At this time include the followin. Start him on IV albumin, total of 1 g/kg per day divided in 3 doses. 2. Placed on p.o. fluid restriction 1500 cc. 3. Avoid nephrotoxins. 4. Track his urine output and renal function closely. 5. We will follow the patient closely with the team. MD DIVINA Horton/MEAGAN / [phone]
--- NOTE | 2022-09-10 04:43 | CONS_ITS ---
DATE OF SERVICE: 09/09/2022 REASON FOR CONSULTATION: Cirrhosis, ascites, melena, and anemia. HISTORY OF PRESENT ILLNESS: The patient is a 57-year-old male well known to me with an underlying history of cirrhosis due to previous alcohol abuse and previous hepatitis C. He has been abstinent from alcohol since 2012 and his hepatitis C was treated successfully many years ago. His history is notable for previous variceal bleeding with his most recent banding in May of 2020 and June 2020. He has had significant ascites and edema that has been treated with diuretics and occasional paracenteses as an outpatient. He has had no history of spontaneous bacterial peritonitis. He was referred to [facility] and has been followed there by Dr. Jo since 2020. I had received a previous letter from them stating that the patient had been accepted on a liver transplant waiting list. Most recently, he describes increasing ascites and the new onset of black stool. This prompted his coming to the ER. He denies any nausea, vomiting, hematemesis, nor coffee-grounds emesis. He denies any increasing heartburn nor abdominal pain. He has had increasing abdominal distention and edema. He denies any fevers at home. He has not been using any aspirin nor NSAIDs. He does not smoke and again has not been using any alcohol. He describes his next visit at [facility] is either November or December. He cannot recall exactly when he was there last. I do suspect that there is some relative noncompliance with medication given his history of poorly controlled diabetes and very high blood sugars. The same problem may be occurring with his use of diuretics and hence his worsening ascites with edema. Since admission here, he has had no signs of GI bleeding. He has had some mild epistaxis. He did just have a paracentesis with removal of about 5 L of yellow clear fluid. MEDICATIONS: List at home included atorvastatin, furosemide, Glipizide, hydroxyzine, insulin, omeprazole, spironolactone, trazodone. His current medications here in the hospital include acetaminophen, IV ceftriaxone, Colace, furosemide, insulin, Zofran, IV pantoprazole. PAST MEDICAL HISTORY: Cirrhosis as above. Insulin-dependent diabetes mellitus. Hypertension. Tubular adenomas of the colon with his most recent colonoscopy in June 2021 revealing 2 small tubular adenomas. Variceal bleeding with his most recent banding of the varices in June 2020. Coronary artery disease in 2017 with a previous [place] and 1 stent placed. There is no reported history of stroke. SOCIAL HISTORY: He is single. He is currently not working. He does not smoke, denies any alcohol. He lives by himself. PAST FAMILY HISTORY: His mother from colon cancer in her 60s. There is no family history of liver disease. REVIEW OF SYSTEMS: CONSTITUTIONAL: He has been feeling weak and poorly at home. SKIN: No rash, no pruritus. CARDIAC: No chest pain. PULMONARY: No coughing, no hemoptysis. GI: As above. URINARY: No dysuria, no hematuria. NEUROLOGIC: No headache or seizures. PSYCHIATRIC: Negative. PHYSICAL EXAMINATION: GENERAL: The patient is an alert, pleasant male. HEENT: He does have icteric sclerae. Neuro:He does have some mild asterixis, but seems to be oriented and does recognize me from previous visits. NECK: Supple without lymphadenopathy. CHEST: Clear. CARDIAC: Normal S1 and S2 with a systolic murmur. ABDOMEN: Soft and nondistended, now that he has had paracentesis. There is no focal mass, tenderness, or rebound. EXTREMITIES: Reveal bilateral pedal edema. LABORATORY DATA: Total bilirubin 2.4, AST 65, ALT 41, alk phos 242. Sodium 127, potassium 4.4, BUN 28, creatinine 1.5. PT 18.[address] of the abdomen and pelvis revealed large amount of ascites and findings consistent with cirrhosis. There was splenomegaly noted as well. CT scan describes some distal esophageal circumferential wall thickening. There is evidence of portal hypertension. White blood cell count 3.9; hemoglobin 6.5, it was 7.6 on arrival. His hemoglobin was 11.3 in May 2022. Platelets 8000. IMPRESSION: The patient is a 57-year-old male with advanced cirrhosis, presenting with worsening edema, ascites, and gastrointestinal bleeding. I doubt this represents a variceal bleed given no reported vomiting or nausea. He may very well be bleeding from portal gastropathy or ulcer disease. At this point, he will continue on an IV PPI and undergo upper endoscopy tomorrow with either or Dr. Miller. Full consent has been obtained from him for that, including risks of bleeding and perforation. In the meantime, we will continue supportive care with the continuation of his diuretics and close following of his chemistries and renal function. I will check an ammonia level if not already done and institute treatment of Xifaxan and/or lactulose given some asterixis on his exam. He will continue with monitoring of his hemoglobin, chemistries, and PT/INR. If he was to decompensate further, then he might need transfer to [facility] where he is a known patient on their liver transplant list. This has been discussed with the patient in detail. Thank you for the consultation. MD IMANI Nguyen/MEAGAN / [phone]
[2022-09-10] MEDS: Pantoprazole Sodium 40 MG/10 ML VIAL IVPUSH ×2 (05:41→16:54)
[2022-09-10] MEDS: cefTRIAXone sodium 1 GM in 0.9 % Sodium Chloride 50 ML IV (05:41)
[2022-09-10 06:14] LABS: MANUAL DIFF FLAG NO
[2022-09-10] MEDS: Albumin Human 25 % 100 ML IV ×2 (06:24→14:34)
[2022-09-10 06:28] LABS: INTERNATIONAL NORM RATIO 1.6 (0.9-1.1); Prothrombin Time 18.7 SEC (10.0-13.1)
[2022-09-10 06:42] LABS: Anion Gap 10 (12-20); Blood Urea Nitrogen 26 mg/dL (9-16); Calcium 7.6 mg/dL (8.4-10.2); Carbon Dioxide 25 mmol/L (22-29); Chloride 100 mmol/L (96-108); Creatinine Clr Calc Pharmacy 58.4; Estimated Glomerular Filt Rate 55; Glucose Random 182 mg/dL (60-115); Potassium 3.9 mmol/L (3.3-5.1); Sodium 131 mmol/L (135-145)
[2022-09-10] MEDS: 0.9 % Sodium Chloride Flush 3 ML SYRINGE IVFLUSH ×3 (07:23→20:59)
[2022-09-10 07:30] LABS: Glucose, Whole Blood 171 mg/dL (60-115)
[2022-09-10 07:43] LABS: Ammonia 65 umol/L (13-55)
[2022-09-10 07:54] LABS: Basophils Percent Auto 0.3 % (0-2); Eosinophils Absolute Auto 0.1 X10*3/uL (0.0-0.4); Eosinophils Percent Auto 2.6 % (0-4); Hematocrit 21.3 % (42.0-52.0); Hemoglobin 7.2 g/dl (14.0-18.0); Imm Gran Abs Auto 0.02 X10*3/uL (0.00-0.03); Imm Gran Pct Auto 0.5 % (0.0-0.4); Lymphocytes Absolute Auto 0.6 X10*3/uL (1.2-4.9); Lymphocytes Percent Auto 14.4 % (20-40); Mean Corpuscular HGB Conc 33.8 g/dl (31.0-36.0); Mean Corpuscular Hemoglobin 26.5 pg (27.0-33.0); Mean Corpuscular Volume 78.3 fL (80.0-98.0); Monocytes Absolute Auto 0.6 X10*3/uL (0.1-1.2); Monocytes Percent Auto 15.2 % (2-11); Neutrophils Absolute Auto 2.6 x10*3/uL (2.0-8.3); Platelet Count 74 X10*3/uL (160-400); Red Blood Count 2.72 X10*6/uL (4.60-5.80)
[2022-09-10 07:55] LABS: Mean Platelet Volume 10.7 fL (9.4-12.4)
[2022-09-10 07:56] LABS: White Blood Count 3.9 X10*3/uL (4.8-10.8)
[2022-09-10 11:31] LABS: Glucose, Whole Blood 212 mg/dL (60-115)
[2022-09-10] MEDS: Midodrine HCl 5 MG TABLET PO ×3 (12:03→20:59)
[2022-09-10 13:05] LABS: Glucose, Whole Blood 212 mg/dL (60-115)
--- NOTE | 2022-09-10 13:15 | HO.ANESPROP2 ---
HPI - Anesthesia Eval Consult details Narrative: egd, varices PMFSH Active Problems Active Problems: All Active Problems (Updated 09/09/22 @ 06:20 by Emile Menon MD) Cirrhosis of liver (Acute) Hyperglycemia due to diabetes mellitus (Acute) Chronic hyponatremia (Acute) Acute hyponatremia (Acute) Abdominal ascites (Acute) Acute kidney injury superimposed on CKD (Acute) Normocytic anemia (Acute) Black stools (Acute) Acute UTI (Acute) Past Medical History Medical History Cirrhosis Diabetes Elevated cholesterol Hepatitis History of alcohol abuse HTN (hypertension) Myocardial infarction Varices, esophageal Family History Family history of problems with anesthesia: No Surgical History Surgical History H/O colonoscopy History of esophagogastroduodenoscopy (EGD) History of PTCA Hx of hand surgery History of Problems with Anesthesia: No Social History Social History Household Members: None Housing: Apartment Do you presently have visiting nurse or other home services: No Alcohol intake: never Patient Tobacco Use Status: Former Tobacco user Quit Date: 2013 Tobacco use type: Cigarette Smoked in Last 30 Days: No Second Hand Smoke Exposure: No Use of substances other than those prescribed or required for medical reasons: No Currently Displaying Signs/Symptoms of Drug Intoxication Withdrawal: No Any prior treatment program specific to substance use: No Have you been hit, kicked, punched, or otherwise hurt by someone within the past year? If so, by whom?: No Do you feel safe in your current relationship?: No Current Relationship Is there a partner from a previous relationship who is making you feel unsafe now?: No Are you made to feel afraid or neglected: No Are you DNR?: No Advance Directives: No Advance Directives Information Provided: Yes Do you have thoughts of harming others: None Do you have a plan to hurt others: No Plan Recently lost weight without trying: No Eating poorly because of decreased appetite: No Nutrition Risks: No Nutritional Risk Poor oral hygiene: No service: No Current occupational status: employed Meds Allergies Allergy/AdvReac Type Severity Reaction Status Date / Time codeine [CODEINE] Allergy Mild ITCHINESS, Verified 09/08/22 20:47 itching penicillin G Allergy Mild itching Verified 09/08/22 20:47 Active Medications: Current Medications Acetaminophen (Acetaminophen 325 Mg Tablet) 650 mg PO Q12H PRN PRN Reason: Pain, Mild (Pain Scale 1-3) Docusate Sodium (Docusate Sodium 100 Mg Capsule) 100 mg PO DAILY PRN PRN Reason: Constipation Glucose (Glucose Gel 15 Gm Gel..Gram.) 15 gm PO Q15M PRN; Protocol PRN Reason: per Hypoglycemia Standing Ord. Dextrose (D10) 250 mls @ 750 mls/hr IV Q15M PRN; Protocol PRN Reason: per Hypoglycemia Standing Ord. Ceftriaxone Sodium 1 gm/ (Sodium Chloride) 50 mls @ 100 mls/hr IV Q24H [facility] Last Infusion: 09/10/22 06:23 Dose: Infused Albumin Human (Kedbumin 25 %) 100 mls @ 100 mls/hr IV Q8H [facility] Stop: 09/10/22 15:59 Last Infusion: 09/10/22 08:08 Dose: Infused Insulin Human Lispro (Insulin Lispro 100 Unit/Ml 3 Ml Vial) 0 unit SUBCUT QIDACHS [facility]; Protocol Last Admin: 09/10/22 12:01 Dose: Not Given Midodrine (Midodrine Hcl 5 Mg Tablet) 5 mg PO TID [facility] Last Admin: 09/10/22 12:03 Dose: 5 mg Ondansetron HCl (Ondansetron Hcl 4 Mg/2 Ml Vial) 4 mg IVPUSH Q8H PRN PRN Reason: Nausea and Vomiting Pantoprazole Sodium (Pantoprazole Sodium 40 Mg/10 Ml Vial) 40 mg IVPUSH BID@0630,1630 [facility] Last Admin: 09/10/22 05:41 Dose: 40 mg Sodium Chloride (0.9 % Sodium Chloride Flush 3 Ml Syringe) [address] [facility] Last Admin: 09/10/22 07:23 Dose: 3 ml Home Medications Medication Instructions Recorded Confirmed Last Taken Type atorvastatin 20 mg tablet 20 mg PO DAILY 06/29/20 09/09/22 09/08/22 History omeprazole 20 mg capsule,delayed 20 mg PO DAILY 06/29/20 09/09/22 Unknown History release furosemide 20 mg tablet 40 mg PO BID 09/09/22 09/09/22 Unknown History glipizide 10 mg tablet, extended 20 mg PO DAILY 09/09/22 09/09/22 09/08/22 History release 24 hr hydroxyzine HCl 25 mg tablet 25 mg PO TID PRN itch 09/09/22 09/09/22 Unknown History insulin glargine-yfgn 100 unit/mL 80 unit subcut BEDTIME 09/09/22 09/09/22 Unknown History (3 mL) subcutaneous pen (Semglee (insulin glargine-yfgn) Pen) spironolactone 50 mg tablet 50 mg PO BEDTIME 09/09/22 09/09/22 Unknown History spironolactone 50 mg tablet 100 mg PO DAILY 09/09/22 09/09/22 Unknown History trazodone 50 mg tablet 50 mg PO BEDTIME PRN insomnia 09/09/22 09/09/22 Unknown History Exam Exam Date and Time: September 10, 2022 1315 Height,Weight and Vital Signs: Height 5 ft 5 in Weight 81.8 kg Last Vital Signs Temp 97.3 F 09/10/22 12:53 Pulse 73 09/10/22 12:53 Resp 16 09/10/22 12:53 BP 106/50 L 09/10/22 12:53 Pulse Ox 97 09/10/22 12:53 O2 Del Method Room Air 09/10/22 12:53 Pertinent Lab Results Pertinent Lab Results: Laboratory Tests 09/08/22 09/08/22 09/08/22 21:29 21:29 21:29 WBC 6.6 RBC 2.83 L D Hgb 7.6 L D Hct 23.0 L D MCV 81.3 MCH 26.9 L MCHC 33.0 RDW 18.1 H Plt Count 154 L D MPV 11.2 Immature Gran % (Auto) 0.8 H Neut % (Auto) 72.2 Lymph % (Auto) 10.8 L Falls % (Auto) 12.7 H Eos % (Auto) 2.9 Baso % (Auto) 0.6 Lymph # (Auto) 0.7 L Falls # (Auto) 0.8 Eos # (Auto) 0.2 Baso # (Auto) 0.0 Abs Immat Gran (auto) 0.05 H Absolute Neuts (auto) 4.8 Absolute Nucleated RBC 0.000 Nucleated RBC % (auto) 0.0 PT INR APTT Sodium 120 L* Potassium 5.8 H D Chloride 91 L Carbon Dioxide 23 Anion Gap 12 BUN 30 H Creatinine 1.57 H Estim Creat Clear Calc 48.5 Estimated GFR 45 POC Glucose Random Glucose 506 H* Osmolality Calcium 7.3 L D Magnesium 2.4 Total Bilirubin 2.4 H AST 65 H ALT 41 H Alkaline Phosphatase 242 H Ammonia Troponin I High Sens B-Natriuretic Peptide 86 Total Protein 6.1 L Albumin 2.0 L Urine Color Urine Appearance Urine pH Ur Specific Mercer Urine Protein Urine Glucose (UA) Urine Ketones Urine Blood Urine Nitrite Ur Leukocyte Esterase Urine RBC Urine WBC Ur Squamous Epith Cells Urine Bacteria Hyaline Casts Urine Osmolality Ur Random Sodium Ur Random Chloride Stool Occult Blood COVID-19 (SHAZIA) COVID-19 Clin Com Influenza Type A (ERIC) Influenza Type B (ERIC) Influenza A & B Note Blood Type Antibody Screen Crossmatch 09/08/22 09/08/22 09/08/22 21:29 21:29 21:29 WBC RBC Hgb Hct MCV MCH MCHC RDW Plt Count MPV Immature Gran % (Auto) Neut % (Auto) Lymph % (Auto) Falls % (Auto) Eos % (Auto) Baso % (Auto) Lymph # (Auto) Falls # (Auto) Eos # (Auto) Baso # (Auto) Abs Immat Gran (auto) Absolute Neuts (auto) Absolute Nucleated RBC Nucleated RBC % (auto) PT INR APTT Sodium Potassium Chloride Carbon Dioxide Anion Gap BUN Creatinine Estim Creat Clear Calc Estimated GFR POC Glucose Random Glucose Osmolality Calcium Magnesium Total Bilirubin AST ALT Alkaline Phosphatase Ammonia Troponin I High Sens < 3.5 B-Natriuretic Peptide Total Protein Albumin Urine Color Urine Appearance Urine pH Ur Specific Mercer Urine Protein Urine Glucose (UA) Urine Ketones Urine Blood Urine Nitrite Ur Leukocyte Esterase Urine RBC Urine WBC Ur Squamous Epith Cells Urine Bacteria Hyaline Casts Urine Osmolality Ur Random Sodium Ur Random Chloride Stool Occult Blood COVID-19 (SHAZIA) Negative COVID-19 Clin Com See Note Influenza Type A (ERIC) Negative Influenza Type B (ERIC) Negative Influenza A & B Note See Note Blood Type Antibody Screen Crossmatch 09/08/22 09/08/22 09/08/22 21:29 22:52 23:29 WBC RBC Hgb Hct MCV MCH MCHC RDW Plt Count MPV Immature Gran % (Auto) Neut % (Auto) Lymph % (Auto) Falls % (Auto) Eos % (Auto) Baso % (Auto) Lymph # (Auto) Falls # (Auto) Eos # (Auto) Baso # (Auto) Abs Immat Gran (auto) Absolute Neuts (auto) Absolute Nucleated RBC Nucleated RBC % (auto) PT INR APTT Sodium Potassium Chloride Carbon Dioxide Anion Gap BUN Creatinine Estim Creat Clear Calc Estimated GFR POC Glucose Random Glucose Osmolality 287 Calcium Magnesium Total Bilirubin AST ALT Alkaline Phosphatase Ammonia Troponin I High Sens B-Natriuretic Peptide Total Protein Albumin Urine Color Urine Appearance Urine pH Ur Specific Mercer Urine Protein Urine Glucose (UA) Urine Ketones Urine Blood Urine Nitrite Ur Leukocyte Esterase Urine RBC Urine WBC Ur Squamous Epith Cells Urine Bacteria Hyaline Casts Urine Osmolality Ur Random Sodium Ur Random Chloride Stool Occult Blood NEGATIVE COVID-19 (SHAZIA) COVID-19 Clin Com Influenza Type A (ERIC) Influenza Type B (ERIC) Influenza A & B Note Blood Type A Positive Antibody Screen NEGATIVE Crossmatch See Detail 09/08/22 09/08/22 09/09/22 23:29 23:29 00:18 WBC RBC Hgb Hct MCV MCH MCHC RDW Plt Count MPV Immature Gran % (Auto) Neut % (Auto) Lymph % (Auto) Falls % (Auto) Eos % (Auto) Baso % (Auto) Lymph # (Auto) Falls # (Auto) Eos # (Auto) Baso # (Auto) Abs Immat Gran (auto) Absolute Neuts (auto) Absolute Nucleated RBC Nucleated RBC % (auto) PT 18.4 H INR 1.6 H APTT 26.4 Sodium Potassium Chloride Carbon Dioxide Anion Gap BUN Creatinine Estim Creat Clear Calc Estimated GFR POC Glucose Random Glucose Osmolality Calcium Magnesium Total Bilirubin AST ALT Alkaline Phosphatase Ammonia 35 Troponin I High Sens B-Natriuretic Peptide Total Protein Albumin Urine Color Urine Appearance Urine pH Ur Specific Mercer Urine Protein Urine Glucose (UA) Urine Ketones Urine Blood Urine Nitrite Ur Leukocyte Esterase Urine RBC Urine WBC Ur Squamous Epith Cells Urine Bacteria Hyaline Casts Urine Osmolality 533 Ur Random Sodium Ur Random Chloride Stool Occult Blood COVID-19 (SHAZIA) COVID-19 Clin Com Influenza Type A (ERIC) Influenza Type B (ERIC) Influenza A & B Note Blood Type Antibody Screen Crossmatch 09/09/22 09/09/22 09/09/22 00:18 01:31 02:03 WBC RBC Hgb Hct MCV MCH MCHC RDW Plt Count MPV Immature Gran % (Auto) Neut % (Auto) Lymph % (Auto) Falls % (Auto) Eos % (Auto) Baso % (Auto) Lymph # (Auto) Falls # (Auto) Eos # (Auto) Baso # (Auto) Abs Immat Gran (auto) Absolute Neuts (auto) Absolute Nucleated RBC Nucleated RBC % (auto) PT INR APTT Sodium 122 L Potassium 4.7 Chloride 93 L Carbon Dioxide 19 L Anion Gap 15 BUN 29 H Creatinine 1.48 H Estim Creat Clear Calc 51.4 Estimated GFR 49 POC Glucose Random Glucose 405 H* Osmolality Calcium 6.9 L Magnesium Total Bilirubin AST ALT Alkaline Phosphatase Ammonia Troponin I High Sens B-Natriuretic Peptide Total Protein Albumin Urine Color Yellow Urine Appearance Clear Urine pH 5.5 Ur Specific Mercer 1.015 Urine Protein Negative Urine Glucose (UA) >=1000 H Urine Ketones Negative Urine Blood Negative Urine Nitrite Positive H Ur Leukocyte Esterase Trace H Urine RBC 0-2 Urine WBC 6-10 H Ur Squamous Epith Cells 0-2 Urine Bacteria 4+ Hyaline Casts 0-2 Urine Osmolality Ur Random Sodium < 20.0 Ur Random Chloride < 10.0 Stool Occult Blood COVID-19 (SHAZIA) COVID-19 Clin Com Influenza Type A (ERIC) Influenza Type B (ERIC) Influenza A & B Note Blood Type Antibody Screen Crossmatch 09/09/22 09/09/22 09/09/22 02:20 02:26 06:52 WBC 3.9 L RBC 2.42 L Hgb 6.5 L* Hct 19.2 L* MCV 79.3 L MCH 26.9 L MCHC 33.9 RDW 17.5 H Plt Count 86 L D MPV 11.7 Immature Gran % (Auto) 0.5 H Neut % (Auto) 64.5 Lymph % (Auto) 16.3 L Falls % (Auto) 14.0 H Eos % (Auto) 4.4 H Baso % (Auto) 0.3 Lymph # (Auto) 0.6 L Falls # (Auto) 0.5 Eos # (Auto) 0.2 Baso # (Auto) 0.0 Abs Immat Gran (auto) 0.02 Absolute Neuts (auto) 2.5 Absolute Nucleated RBC 0.000 Nucleated RBC % (auto) 0.0 PT INR APTT Sodium 124 L Potassium 5.3 H Chloride 93 L Carbon Dioxide 22 Anion Gap 14 BUN 28 H Creatinine 1.50 H Estim Creat Clear Calc 50.8 Estimated GFR 48 POC Glucose 328 H Random Glucose 328 H Osmolality Calcium 7.0 L Magnesium Total Bilirubin AST ALT Alkaline Phosphatase Ammonia Troponin I High Sens B-Natriuretic Peptide Total Protein Albumin Urine Color Urine Appearance Urine pH Ur Specific Mercer Urine Protein Urine Glucose (UA) Urine Ketones Urine Blood Urine Nitrite Ur Leukocyte Esterase Urine RBC Urine WBC Ur Squamous Epith Cells Urine Bacteria Hyaline Casts Urine Osmolality Ur Random Sodium Ur Random Chloride Stool Occult Blood COVID-19 (SHAZIA) COVID-19 Clin Com Influenza Type A (ERIC) Influenza Type B (ERIC) Influenza A & B Note Blood Type Antibody Screen Crossmatch 09/09/22 09/09/22 09/09/22 06:52 06:52 07:03 WBC RBC Hgb Hct MCV MCH MCHC RDW Plt Count MPV Immature Gran % (Auto) Neut % (Auto) Lymph % (Auto) Falls % (Auto) Eos % (Auto) Baso % (Auto) Lymph # (Auto) Falls # (Auto) Eos # (Auto) Baso # (Auto) Abs Immat Gran (auto) Absolute Neuts (auto) Absolute Nucleated RBC Nucleated RBC % (auto) PT INR APTT Sodium 126 L Potassium 4.2 D Chloride 96 Carbon Dioxide 24 Anion Gap 10 L BUN 28 H Creatinine 1.48 H Estim Creat Clear Calc 52.9 Estimated GFR 49 POC Glucose 233 H Random Glucose 238 H Osmolality Calcium 7.2 L Magnesium Total Bilirubin AST ALT Alkaline Phosphatase Ammonia Troponin I High Sens B-Natriuretic Peptide 101 H Total Protein Albumin Urine Color Urine Appearance Urine pH Ur Specific Mercer Urine Protein Urine Glucose (UA) Urine Ketones Urine Blood Urine Nitrite Ur Leukocyte Esterase Urine RBC Urine WBC Ur Squamous Epith Cells Urine Bacteria Hyaline Casts Urine Osmolality Ur Random Sodium Ur Random Chloride Stool Occult Blood COVID-19 (SHAZIA) COVID-19 Clin Com Influenza Type A (ERIC) Influenza Type B (ERIC) Influenza A & B Note Blood Type Antibody Screen Crossmatch 09/09/22 09/09/22 09/09/22 10:01 11:05 15:06 WBC RBC Hgb Hct MCV MCH MCHC RDW Plt Count MPV Immature Gran % (Auto) Neut % (Auto) Lymph % (Auto) Falls % (Auto) Eos % (Auto) Baso % (Auto) Lymph # (Auto) Falls # (Auto) Eos # (Auto) Baso # (Auto) Abs Immat Gran (auto) Absolute Neuts (auto) Absolute Nucleated RBC Nucleated RBC % (auto) PT INR APTT Sodium 126 L 127 L Potassium 4.2 4.4 Chloride 97 97 Carbon Dioxide 21 L 25 Anion Gap 12 9 L BUN 29 H 28 H Creatinine 1.53 H 1.48 H Estim Creat Clear Calc 51.1 52.9 Estimated GFR 47 49 POC Glucose 349 H Random Glucose 300 H 275 H Osmolality Calcium 7.4 L 7.3 L Magnesium Total Bilirubin AST ALT Alkaline Phosphatase Ammonia Troponin I High Sens B-Natriuretic Peptide Total Protein Albumin Urine Color Urine Appearance Urine pH Ur Specific Mercer Urine Protein Urine Glucose (UA) Urine Ketones Urine Blood Urine Nitrite Ur Leukocyte Esterase Urine RBC Urine WBC Ur Squamous Epith Cells Urine Bacteria Hyaline Casts Urine Osmolality Ur Random Sodium Ur Random Chloride Stool Occult Blood COVID-19 (SHAZIA) COVID-19 Clin Com Influenza Type A (ERIC) Influenza Type B (ERIC) Influenza A & B Note Blood Type Antibody Screen Crossmatch 09/09/22 09/09/22 09/10/22 16:51 20:13 05:50 WBC 3.9 L RBC 2.72 L Hgb 7.2 L Hct 21.3 L MCV 78.3 L MCH 26.5 L MCHC 33.8 RDW 18.0 H Plt Count 74 L MPV 10.7 Immature Gran % (Auto) 0.5 H Neut % (Auto) 67.0 Lymph % (Auto) 14.4 L Falls % (Auto) 15.2 H Eos % (Auto) 2.6 Baso % (Auto) 0.3 Lymph # (Auto) 0.6 L Falls # (Auto) 0.6 Eos # (Auto) 0.1 Baso # (Auto) 0.0 Abs Immat Gran (auto) 0.02 Absolute Neuts (auto) 2.6 Absolute Nucleated RBC 0.000 Nucleated RBC % (auto) 0.0 PT INR APTT Sodium Potassium Chloride Carbon Dioxide Anion Gap BUN Creatinine Estim Creat Clear Calc Estimated GFR POC Glucose 269 H 365 H* Random Glucose Osmolality Calcium Magnesium Total Bilirubin AST ALT Alkaline Phosphatase Ammonia Troponin I High Sens B-Natriuretic Peptide Total Protein Albumin Urine Color Urine Appearance Urine pH Ur Specific Mercer Urine Protein Urine Glucose (UA) Urine Ketones Urine Blood Urine Nitrite Ur Leukocyte Esterase Urine RBC Urine WBC Ur Squamous Epith Cells Urine Bacteria Hyaline Casts Urine Osmolality Ur Random Sodium Ur Random Chloride Stool Occult Blood COVID-19 (SHAZIA) COVID-19 Clin Com Influenza Type A (ERIC) Influenza Type B (ERIC) Influenza A & B Note Blood Type Antibody Screen Crossmatch 09/10/22 09/10/22 09/10/22 05:50 05:50 07:17 WBC RBC Hgb Hct MCV MCH MCHC RDW Plt Count MPV Immature Gran % (Auto) Neut % (Auto) Lymph % (Auto) Falls % (Auto) Eos % (Auto) Baso % (Auto) Lymph # (Auto) Falls # (Auto) Eos # (Auto) Baso # (Auto) Abs Immat Gran (auto) Absolute Neuts (auto) Absolute Nucleated RBC Nucleated RBC % (auto) PT 18.7 H INR 1.6 H APTT Sodium 131 L Potassium 3.9 Chloride 100 Carbon Dioxide 25 Anion Gap 10 L BUN 26 H Creatinine 1.34 Estim Creat Clear Calc 58.4 Estimated GFR 55 POC Glucose 171 H Random Glucose 182 H Osmolality Calcium 7.6 L Magnesium Total Bilirubin AST ALT Alkaline Phosphatase Ammonia Troponin I High Sens B-Natriuretic Peptide Total Protein Albumin Urine Color Urine Appearance Urine pH Ur Specific Mercer Urine Protein Urine Glucose (UA) Urine Ketones Urine Blood Urine Nitrite Ur Leukocyte Esterase Urine RBC Urine WBC Ur Squamous Epith Cells Urine Bacteria Hyaline Casts Urine Osmolality Ur Random Sodium Ur Random Chloride Stool Occult Blood COVID-19 (SHAZIA) COVID-19 Clin Com Influenza Type A (ERIC) Influenza Type B (ERIC) Influenza A & B Note Blood Type Antibody Screen Crossmatch 09/10/22 09/10/22 09/10/22 07:29 11:18 13:00 WBC RBC Hgb Hct MCV MCH MCHC RDW Plt Count MPV Immature Gran % (Auto) Neut % (Auto) Lymph % (Auto) Falls % (Auto) Eos % (Auto) Baso % (Auto) Lymph # (Auto) Falls # (Auto) Eos # (Auto) Baso # (Auto) Abs Immat Gran (auto) Absolute Neuts (auto) Absolute Nucleated RBC Nucleated RBC % (auto) PT INR APTT Sodium Potassium Chloride Carbon Dioxide Anion Gap BUN Creatinine Estim Creat Clear Calc Estimated GFR POC Glucose 212 H 212 H Random Glucose Osmolality Calcium Magnesium Total Bilirubin AST ALT Alkaline Phosphatase Ammonia 65 H Troponin I High Sens B-Natriuretic Peptide Total Protein Albumin Urine Color Urine Appearance Urine pH Ur Specific Mercer Urine Protein Urine Glucose (UA) Urine Ketones Urine Blood Urine Nitrite Ur Leukocyte Esterase Urine RBC Urine WBC Ur Squamous Epith Cells Urine Bacteria Hyaline Casts Urine Osmolality Ur Random Sodium Ur Random Chloride Stool Occult Blood COVID-19 (SHAZIA) COVID-19 Clin Com Influenza Type A (ERIC) Influenza Type B (ERIC) Influenza A & B Note Blood Type Antibody Screen Crossmatch Airway Mallampati Class: II TM Dist: >3cm Heart: rrr Lungs: cta Assessment and Plan Assessment Anesthesia Assessment: Anesthesia Plan Discussed and Chart Reviewed Final Anesthetic Review Family History of Problems with Anesthesia: No History of Problems with Anesthesia: No NPO: Yes ASA Class: IV Final Preanesthetic Review: No Changes in Pt Med Stat, Meds/Allgs Chart Reviewed, Consent Obtained/Reviewed, Anes Risks/Benef Reviewed and DNR Form (If Appl.) Patient Risk: High Procedure Risk: Intermediate Anesthetic Plan Anesthetic Plan: MAC: and Agree w/ Assess. and Plan Disposition: Standard PACU
--- NOTE | 2022-09-10 13:52 | P.PNIM_ITS ---
Subjective Subjective Date of Service: 09/10/22 <Tammie Jerez NP - Last Filed: 09/10/22 15:38> 09/10/22 <Alanis Roberts MD - Last Filed: 09/10/22 15:29> Review of Systems Follow up GI bleed no overt bleeding Stable HH no pain or discomfort <Tammie Jerez NP - Last Filed: 09/10/22 15:38> Physical Exam Vital Signs: Vital Signs: Last Vital Signs Temp 97.3 F 09/10/22 12:53 Pulse 73 09/10/22 12:53 Resp 16 09/10/22 12:53 BP 106/50 L 09/10/22 12:53 Pulse Ox 97 09/10/22 12:53 O2 Del Method Room Air 09/10/22 12:53 BMI result Body Mass Index 29.9 <Tammie Jerez NP - Last Filed: 09/10/22 15:38> Appearing in no acute distress lung sounds are clear to auscultation heart regular rate rhythm, clear S1, S2 positive bowel sounds, abdomen is soft, nontender neuro patient is alert x3, no focal deficits <Tammie Jerez NP - Last Filed: 09/10/22 15:38> Objective Data Active Medications Acetaminophen (Acetaminophen 325 Mg Tablet) 650 mg PO Q12H PRN PRN Reason: Pain, Mild (Pain Scale 1-3) Docusate Sodium (Docusate Sodium 100 Mg Capsule) 100 mg PO DAILY PRN PRN Reason: Constipation Glucose (Glucose Gel 15 Gm Gel..Gram.) 15 gm PO Q15M PRN; Protocol PRN Reason: per Hypoglycemia Standing Ord. Dextrose (D10) 250 mls @ 750 mls/hr IV Q15M PRN; Protocol PRN Reason: per Hypoglycemia Standing Ord. Ceftriaxone Sodium 1 gm/ (Sodium Chloride) 50 mls @ 100 mls/hr IV Q24H [facility] Last Infusion: 09/10/22 06:23 Dose: 0 mls/hr Documented By: SAMANTA Albumin Human (Kedbumin 25 %) 100 mls @ 100 mls/hr IV Q8H IVELISSE Stop: 09/10/22 15:59 Last Infusion: 09/10/22 08:08 Dose: 0 mls/hr Documented By: RUBEN Insulin Human Lispro (Insulin Lispro 100 Unit/Ml 3 Ml Vial) 0 unit SUBCUT QIDACHS [facility]; Protocol Last Admin: 09/10/22 12:01 Dose: Not Given Documented By: RUBEN Non-Admin Reason: NPO Lactulose (Lactulose 20 Gm/30 Ml Solution) 20 gm PO DAILY [facility] Midodrine (Midodrine Hcl 5 Mg Tablet) 5 mg PO TID [facility] Last Admin: 09/10/22 12:03 Dose: 5 mg Documented By: RUBEN Ondansetron HCl (Ondansetron Hcl 4 Mg/2 Ml Vial) 4 mg IVPUSH Q8H PRN PRN Reason: Nausea and Vomiting Pantoprazole Sodium (Pantoprazole Sodium 40 Mg/10 Ml Vial) 40 mg IVPUSH BID@0630,1630 [facility] Last Admin: 09/10/22 05:41 Dose: 40 mg Documented By: SAMANTA Sodium Chloride (0.9 % Sodium Chloride Flush 3 Ml Syringe) 3 ml IVFLUSH QSHIFT [facility] Last Admin: 09/10/22 07:23 Dose: 3 ml Documented By: RUBEN <Tammie Jerez NP - Last Filed: 09/10/22 15:38> Labs CBC & Chem 7: 09/10/22 05:50 09/10/22 05:50 <Tammie Jerez NP - Last Filed: 09/10/22 15:38> Labs: Laboratory Results - last 24 hr 09/09/22 09/09/22 09/09/22 15:06 16:51 20:13 MCV MCH MCHC RDW Plt Count MPV Immature Gran % (Auto) Neut % (Auto) Lymph % (Auto) [place] % (Auto) Eos % (Auto) Baso % (Auto) Lymph # (Auto) [place] # (Auto) Eos # (Auto) Baso # (Auto) Abs Immat Gran (auto) Absolute Neuts (auto) Absolute Nucleated RBC Nucleated RBC % (auto) PT INR Anion Gap 9 L Estim Creat Clear Calc 52.9 Estimated GFR 49 POC Glucose 269 H 365 H* Random Glucose 275 H Calcium 7.3 L Ammonia 09/10/22 09/10/22 09/10/22 05:50 05:50 05:50 MCV 78.3 L MCH 26.5 L MCHC 33.8 RDW 18.0 H Plt Count 74 L MPV 10.7 Immature Gran % (Auto) 0.5 H Neut % (Auto) 67.0 Lymph % (Auto) 14.4 L [place] % (Auto) 15.2 H Eos % (Auto) 2.6 Baso % (Auto) 0.3 Lymph # (Auto) 0.6 L [place] # (Auto) 0.6 Eos # (Auto) 0.1 Baso # (Auto) 0.0 Abs Immat Gran (auto) 0.02 Absolute Neuts (auto) 2.6 Absolute Nucleated RBC 0.000 Nucleated RBC % (auto) 0.0 PT 18.7 H INR 1.6 H Anion Gap 10 L Estim Creat Clear Calc 58.4 Estimated GFR 55 POC Glucose Random Glucose 182 H Calcium 7.6 L Ammonia 09/10/22 09/10/22 09/10/22 07:17 07:29 11:18 MCV MCH MCHC RDW Plt Count MPV Immature Gran % (Auto) Neut % (Auto) Lymph % (Auto) [place] % (Auto) Eos % (Auto) Baso % (Auto) Lymph # (Auto) [place] # (Auto) Eos # (Auto) Baso # (Auto) Abs Immat Gran (auto) Absolute Neuts (auto) Absolute Nucleated RBC Nucleated RBC % (auto) PT INR Anion Gap Estim Creat Clear Calc Estimated GFR POC Glucose 171 H 212 H Random Glucose Calcium Ammonia 65 H 09/10/22 13:00 MCV MCH MCHC RDW Plt Count MPV Immature Gran % (Auto) Neut % (Auto) Lymph % (Auto) [place] % (Auto) Eos % (Auto) Baso % (Auto) Lymph # (Auto) [place] # (Auto) Eos # (Auto) Baso # (Auto) Abs Immat Gran (auto) Absolute Neuts (auto) Absolute Nucleated RBC Nucleated RBC % (auto) PT INR Anion Gap Estim Creat Clear Calc Estimated GFR POC Glucose 212 H Random Glucose Calcium Ammonia <Tammie Jerez NP - Last Filed: 09/10/22 15:38> Microbiology Microbiology Results: Microbiology 09/09/22 Unknown Urine Culture - Preliminary Urine clean catch - Urine weeks top Culture in progress. <Tammie Jerez NP - Last Filed: 09/10/22 15:38> Assessment and Plan (1) Acute UTI: Status: Acute <Tammie Jerez NP - Last Filed: 09/10/22 15:38> Assessment and Plan: 57-year-old male with past medical history of liver? cirrhosis, diabetes, noncompliant with his medications presents to the hospital with complaints of weakness, shortness of breath, and generally not feeling well to have multiple complications Normocytic anemia acute on chronic with a baseline around 11, down as low as 6.5/19.2 possibly secondary to GI bleed received total 2 units of PRBC GI consulted>EGD 09/10/22> nonbleeding esophageal varices, mild portal hypertensive gastropathy and gastritis Advanced diet Nadolol if in when BP allows as per GI IV PPI>oral acute on chronic hyponatremia. Improving baseline around 128-130 secondary to hypervolemic?hyponatremia in the setting of ascites serum osmolality to 280s, urine osmolality 533, random urine less than 20,?suggestive of cirrhosis causing hyponatremia nephrology consulted rec albumin x3 doses fl rest 1.5ml Diabetes 2 with hyperglycemia secondary to noncompliance with diabetic?management sliding scale insulin diabetic diet liver cirrhosis/ abdominal distension/ascites no concern for SBP at this time, has no fever, no leukocytosis, abdomen is tender but chronically likely secondary to ascites s/p paracentesis 09/09/22 with removal of 5.2L clear fluid UTI positive UA will treat empirically with ceftriaxone follow culture CAROL ANN. Resolving likely hepatorenal treated with fluids and albumin follow BMP nephrology following DVT prophylaxis:? Lovenox DISPO Home when medically stable continued hospital stay for treatment of GI bleed, pending EGD for possible variceal bleeding <Tammie Jerez NP - Last Filed: 09/10/22 15:38> Time Spent With Patient Time: Total time managing care of this patient today ____ minutes. <Tammie Jerez NP - Last Filed: 09/10/22 15:38> Quality Stroke Does the patient have a stroke diagnosis?: No <SILVERIO Pierce Last Filed: 09/10/22 15:38> VTE Prior VTE?: No <SILVERIO Pierce Last Filed: 09/10/22 15:38> VTE Risk Level:: Medical - moderate - high <SILVERIO Pierce Last Filed: 09/10/22 15:38> VTE Device Contraindication: Treatment Not Indicated <SILVERIO Pierce Last Filed: 09/10/22 15:38> VTE Drug Contraindication: N/A - Med Ordered <Tammie Jerez NP - Last Filed: 09/10/22 15:38>
--- NOTE | 2022-09-10 13:56 | PM.EVENT ---
Event Note Date of Service: 09/10/22 Event Note: EGD note dictated nonbleeding esophageal varices mild portal hypertensive gastropathy and gastritis no active bleeding rec: advance diet follow hct consider nadolol if bp allows Time Spent With Patient Time: Total time managing care of this patient today ____ minutes.
[2022-09-10] MEDS: Lactulose 20 GM/30 ML SOLUTION PO (14:33)
--- NOTE | 2022-09-10 14:36 | PM.PNNEP ---
Subjective Subjective Date of Service: 09/10/22 Interval history: Seen and exxamiend, events noted Physical Exam Vital Signs: Vital Signs: Last Vital Signs Temp 97.9 F 09/10/22 14:20 Pulse 88 09/10/22 14:20 Resp 16 09/10/22 14:20 BP 102/51 L 09/10/22 14:20 Pulse Ox 98 09/10/22 14:20 O2 Del Method Room Air 09/10/22 14:20 O2 Flow Rate 5 09/10/22 13:58 BMI result Body Mass Index 29.9 Const: Other: muscle wasting, cachectic General: cooperative and no acute distress Orientation/consciousness: patient oriented x3 Limitations: No language barrier Eyes: General: appearance normal, both eyes and all related structures Resp: Effort & Inspection: normal respiratory effort Auscultation: clear to auscultation bilaterally Cardio: Rate: regular rate Rhythm: regular rhythm GI: Other: abdomen is distended 3+, tender to palpation, no rebound or guarding Palpation (GI): Soft to palpation Auscultation: normal bowel sounds Skin: General skin exam: no rashes or lesions noted Neuro: General: patient oriented x3 Cognition (Neuro): normal cognition Extrem: Other: 2+ pedal edema General: Yes normal to inspection Objective Data Labs 09/10/22 05:50 09/10/22 05:50 Labs: Laboratory Results - last 24 hr 09/09/22 09/09/22 09/09/22 15:06 16:51 20:13 WBC RBC Hgb Hct MCV MCH MCHC RDW Plt Count MPV Immature Gran % (Auto) Neut % (Auto) Lymph % (Auto) [place] % (Auto) Eos % (Auto) Baso % (Auto) Lymph # (Auto) [place] # (Auto) Eos # (Auto) Baso # (Auto) Abs Immat Gran (auto) Absolute Neuts (auto) Absolute Nucleated RBC Nucleated RBC % (auto) PT INR Sodium 127 L Potassium 4.4 Chloride 97 Carbon Dioxide 25 Anion Gap 9 L BUN 28 H Creatinine 1.48 H Estim Creat Clear Calc 52.9 Estimated GFR 49 POC Glucose 269 H 365 H* Random Glucose 275 H Calcium 7.3 L Ammonia 09/10/22 09/10/22 09/10/22 05:50 05:50 05:50 WBC 3.9 L RBC 2.72 L Hgb 7.2 L Hct 21.3 L MCV 78.3 L MCH 26.5 L MCHC 33.8 RDW 18.0 H Plt Count 74 L MPV 10.7 Immature Gran % (Auto) 0.5 H Neut % (Auto) 67.0 Lymph % (Auto) 14.4 L [place] % (Auto) 15.2 H Eos % (Auto) 2.6 Baso % (Auto) 0.3 Lymph # (Auto) 0.6 L [place] # (Auto) 0.6 Eos # (Auto) 0.1 Baso # (Auto) 0.0 Abs Immat Gran (auto) 0.02 Absolute Neuts (auto) 2.6 Absolute Nucleated RBC 0.000 Nucleated RBC % (auto) 0.0 PT 18.7 H INR 1.6 H Sodium 131 L Potassium 3.9 Chloride 100 Carbon Dioxide 25 Anion Gap 10 L BUN 26 H Creatinine 1.34 Estim Creat Clear Calc 58.4 Estimated GFR 55 POC Glucose Random Glucose 182 H Calcium 7.6 L Ammonia 09/10/22 09/10/22 09/10/22 07:17 07:29 11:18 WBC RBC Hgb Hct MCV MCH MCHC RDW Plt Count MPV Immature Gran % (Auto) Neut % (Auto) Lymph % (Auto) [place] % (Auto) Eos % (Auto) Baso % (Auto) Lymph # (Auto) [place] # (Auto) Eos # (Auto) Baso # (Auto) Abs Immat Gran (auto) Absolute Neuts (auto) Absolute Nucleated RBC Nucleated RBC % (auto) PT INR Sodium Potassium Chloride Carbon Dioxide Anion Gap BUN Creatinine Estim Creat Clear Calc Estimated GFR POC Glucose 171 H 212 H Random Glucose Calcium Ammonia 65 H 09/10/22 13:00 WBC RBC Hgb Hct MCV MCH MCHC RDW Plt Count MPV Immature Gran % (Auto) Neut % (Auto) Lymph % (Auto) [place] % (Auto) Eos % (Auto) Baso % (Auto) Lymph # (Auto) [place] # (Auto) Eos # (Auto) Baso # (Auto) Abs Immat Gran (auto) Absolute Neuts (auto) Absolute Nucleated RBC Nucleated RBC % (auto) PT INR Sodium Potassium Chloride Carbon Dioxide Anion Gap BUN Creatinine Estim Creat Clear Calc Estimated GFR POC Glucose 212 H Random Glucose Calcium Ammonia Microbiology Microbiology Results: Microbiology 09/09/22 Unknown Urine clean catch - Urine weeks top Urine Culture - Preliminary Culture in progress. Procedures Date of Service Date of Service: 09/10/22 Assessment & Plan Assessment and plan (1) Acute hyponatremia: Status: Acute (2) Hyperglycemia due to diabetes mellitus: Status: Acute (3) Abdominal ascites: Status: Acute (4) Acute kidney injury superimposed on CKD: Status: Acute (5) Normocytic anemia: Status: Acute (6) Black stools: Status: Acute (7) Acute UTI: Status: Acute Plan 57-year-old liver? cirrhosis, diabetes, noncompliant with his medications asked to see PT re: CAROL ANN, HypoNa - CAROL ANN: slyt improved w IV albumin; c/w tami IV vol - Hypervol HypoNa: SNa improved with IV alb; note low SNa initial inpart d/t high BS ( hyperosm component of hypoNa) - Hyervol: d/t cirrhsosis w asities REC: cont to track UOP/renal fnc; avoid NToxinsl avoi too rapid incr in SNa Time Spent With Patient Time: Total time managing care of this patient today ____ minutes. Progress Note: Quality Stroke Does the patient have a stroke diagnosis?: No
[2022-09-10 14:38] LABS: Iron 19 mcg/dL (45-160); Percent Iron Saturation 13 % (15-50); Total Iron Binding Capacity 141 mcg/dL (228-428); Unsaturated Iron Binding 122 ug/dL
--- NOTE | 2022-09-10 15:38 | P.DS_ITS ---
DS: Providers Provider Date of admission: 09/09/22 02:03 Primary care physician: JERI Rodriguez Consults: 09/09/22 02:00 Consult to Nephrology Routine Consulting Provider: [facility] Reason for consultation: Hyponatremia Has provider been notified: No 09/09/22 06:26 Consult to Gastroenterology Routine Consulting Provider: Maverick Zuluaga Reason for consultation: GI bleed? DS: Diagnosis Discharge Diagnosis (1) Acute UTI: Status: Acute DS: Summary Hospital Course Hospital Course: HP as per admitting provider 57-year-old male with past medical history of liver cirrhosis, secondary to alcohol abuse /hepatitis, diabetes, history of CAD, HTN, history of esophageal varices who presents to the hospital with complaints of weakness, SOB, cough, abd distension for the past several weeks worsening over the last week.? Patient states that he has not followed up with PCP in 5-6 months, and has not taken his insulin for about a week.? When asked about review of system he does endorse shortness of breath, cough, no chest pain, no palpitations.? He does report abdominal pain due to distension which is chronic, has not worsened, denies any fever no chills, denies any urinary symptoms and reports chronic lower extremity edema that has not worsened.Patient also states that he had 2 episodes of black stools for the past 2 days with no hematemesis,? or hemoptysis.?On arrival to the ED patient found to have a blood pressure of 110/ 47 Labs are significant for? WBC count of 6.6, hemoglobin of 7.6 which dropped from 11.3 in May, hematocrit 23 INR of 1.6, sodium of 120, potassium 5.8, chloride of 91, creatinine of 1.57, glucose of 506, asthma Swathi of 287, total bili of 2.4, AST of 65, ALT of 41, alk-phos of 242 which are relatively the same as previous, troponin negative, ammonia of 35, BNP of 86 albumin of 2.0 chest x-ray shows bilateral linear atelectasis with no evidence of pneumonia or pulmonary edema Abdominal pelvic CT shows bases of the lungs are clear, morphologically cirrhotic liver with large volume ascites and portosystemic? collateralization patient started on IV fluids, in ED and will be admitted for further management . Normocytic anemia. acute on chronic with a baseline around 11,? down as low as? 6.5/19.2. possibly secondary to GI bleed. received total 2 units of PRBC GI consulted>EGD 09/10/22> nonbleeding esophageal varices, mild portal hypertensive gastropathy and gastritis. Advanced diet. Nadolol if in when BP allows as per GI IV PPI>oral.........Iron low, added supplement Acute on chronic hyponatremia. Baseline 128-130 secondary to hypervolemic hyponatremia in the setting of ascites. serum osmolality to 280s, urine osmolality 533, random urine less than 20,?suggestive of cirrhosis causing hyponatremia, nephrology consulted rec albumin x3 doses. fl rest 1.5ml Diabetes 2 with hyperglycemia. Continue home medications Liver cirrhosis/ abdominal distension/ascites. No concern for SBP. Status post paracentesis 09/09/2022 with 5.2 L of clear fluid removed UTI. Treated with IV Rocephin. Urine cx.......... CAROL ANN. Resolved, hepatic renal. Treated with IV fluids and albumin Time Spent with Patient Time attestation: Total time managing care of this patient today ____ minutes. Physical Exam Vital Signs: Vital Signs: Last Vital Signs Temp 98.5 F 09/10/22 14:49 Pulse 93 09/10/22 14:49 Resp 17 09/10/22 14:49 BP 110/58 L 09/10/22 14:49 Pulse Ox 97 09/10/22 14:49 O2 Del Method Room Air 09/10/22 14:49 O2 Flow Rate 5 09/10/22 13:58 BMI result Body Mass Index 29.9 DS: Data Data Completed and Pending Labs on day of discharge: Laboratory Results - last 24 hr 09/09/22 09/09/22 09/10/22 16:51 20:13 05:50 WBC 3.9 L RBC 2.72 L Hgb 7.2 L Hct 21.3 L MCV 78.3 L MCH 26.5 L MCHC 33.8 RDW 18.0 H Plt Count 74 L MPV 10.7 Immature Gran % (Auto) 0.5 H Neut % (Auto) 67.0 Lymph % (Auto) 14.4 L [place] % (Auto) 15.2 H Eos % (Auto) 2.6 Baso % (Auto) 0.3 Lymph # (Auto) 0.6 L [place] # (Auto) 0.6 Eos # (Auto) 0.1 Baso # (Auto) 0.0 Abs Immat Gran (auto) 0.02 Absolute Neuts (auto) 2.6 Absolute Nucleated RBC 0.000 Nucleated RBC % (auto) 0.0 PT INR Sodium Potassium Chloride Carbon Dioxide Anion Gap BUN Creatinine Estim Creat Clear Calc Estimated GFR POC Glucose 269 H 365 H* Random Glucose Calcium Iron TIBC % Saturation Unsat Iron Binding Ammonia 09/10/22 09/10/22 09/10/22 05:50 05:50 07:17 WBC RBC Hgb Hct MCV MCH MCHC RDW Plt Count MPV Immature Gran % (Auto) Neut % (Auto) Lymph % (Auto) [place] % (Auto) Eos % (Auto) Baso % (Auto) Lymph # (Auto) [place] # (Auto) Eos # (Auto) Baso # (Auto) Abs Immat Gran (auto) Absolute Neuts (auto) Absolute Nucleated RBC Nucleated RBC % (auto) PT 18.7 H INR 1.6 H Sodium 131 L Potassium 3.9 Chloride 100 Carbon Dioxide 25 Anion Gap 10 L BUN 26 H Creatinine 1.34 Estim Creat Clear Calc 58.4 Estimated GFR 55 POC Glucose 171 H Random Glucose 182 H Calcium 7.6 L Iron 19 L TIBC 141 L % Saturation 13 L Unsat Iron Binding 122 Ammonia 09/10/22 09/10/22 09/10/22 07:29 11:18 13:00 WBC RBC Hgb Hct MCV MCH MCHC RDW Plt Count MPV Immature Gran % (Auto) Neut % (Auto) Lymph % (Auto) [place] % (Auto) Eos % (Auto) Baso % (Auto) Lymph # (Auto) [place] # (Auto) Eos # (Auto) Baso # (Auto) Abs Immat Gran (auto) Absolute Neuts (auto) Absolute Nucleated RBC Nucleated RBC % (auto) PT INR Sodium Potassium Chloride Carbon Dioxide Anion Gap BUN Creatinine Estim Creat Clear Calc Estimated GFR POC Glucose 212 H 212 H Random Glucose Calcium Iron TIBC % Saturation Unsat Iron Binding Ammonia 65 H Preliminary micro results at discharge 09/09/22 Unknown Urine Culture - Preliminary Urine clean catch - Urine weeks top Culture in progress. Discharge Plan Discharge Referrals: Dony Morgan PA [Primary Care Provider] - 1 Week Discharge Medications: No Action atorvastatin 20 mg tablet 20 mg PO DAILY omeprazole 20 mg capsule,delayed release(DR/EC) 20 mg PO DAILY trazodone 50 mg tablet 50 mg PO BEDTIME PRN (Reason: insomnia) glipizide 10 mg tablet extended release 24hr 20 mg PO DAILY hydroxyzine HCl 25 mg tablet 25 mg PO TID PRN (Reason: itch) spironolactone 50 mg tablet 100 mg PO DAILY spironolactone 50 mg tablet 50 mg PO BEDTIME insulin glargine-yfgn [Semglee(insulin glarg-yfgn)Pen] 100 unit/mL (3 mL) insulin pen 80 unit subcut BEDTIME furosemide 20 mg tablet 40 mg PO BID
[2022-09-10 16:46] LABS: Glucose, Whole Blood 323 mg/dL (60-115)
[2022-09-10] MEDS: Ferrous Sulfate 324 MG TABLET.DR PO (16:54)
[2022-09-10] MEDS: Insulin Lispro 100 UNIT/ML 3 ML VIAL SUBCUT ×2 (16:54→20:59)
[2022-09-10 20:49] LABS: Glucose, Whole Blood 390 mg/dL (60-115)
[2022-09-11] VITALS (10 sets, daily range): BP systolic 100–127; BP diastolic 50–67; PULSE 72–96; RESP 14–18; TEMP 36.2–37.1; O2SAT 95–99
--- NOTE | 2022-09-11 00:29 | OP_ITS ---
DATE OF SERVICE: 09/10/2022 SURGEON: Larry Miller MD INDICATIONS: Upper GI bleeding. PREOPERATIVE DIAGNOSIS: POSTOPERATIVE DIAGNOSIS: PROCEDURE PERFORMED: Upper endoscopy. ESTIMATED BLOOD LOSS: COMPLICATIONS: ANESTHESIA: Monitored anesthesia care. ASSISTANTS: SPECIMENS: DESCRIPTION OF PROCEDURE: History and physical performed. The risks and benefits of the procedure were explained to the patient. Informed consent was obtained. The patient was placed in the left lateral decubitus position. The Olympus video gastroscope was introduced into the esophagus, stomach, and duodenum. Examination was performed. The scope was removed. He tolerated the procedure well and was turned to recovery room in stable condition. FINDINGS: 1. The esophagus showed varices. There were approximately 3 chains of grade 2 to 3 varices extending from the EG junction at 40 cm to about 25 cm with no active bleeding and no stigmata of recent hemorrhage. No therapy was performed. 2. The stomach showed changes of mild portal hypertensive gastropathy with no active bleeding. The mucosa was friable and did ooze in spots after instrumentation. There was a 6 mm polyp in the body on the anterior wall, which was not biopsied due to the patient's thrombocytopenia and coagulopathy. There were some mild focal areas of erythema in the antrum consistent with mild antral gastritis, but no active bleeding. 3. Duodenum. The bulb and 2nd portion were normal. IMPRESSION: 1. Esophageal varices, nonbleeding. 2. Portal hypertensive gastropathy, mild. 3. Gastric polyps. 4. Mild antral gastritis. RECOMMENDATIONS: 1. Nadolol if BP allows 2. Monitor H and H. 3. Advance diet. MD CARLENE Caputo/JENNIFERL / [id number]
[2022-09-11] MEDS: Omeprazole 20 MG CAPSULE.DR PO ×2 (05:37→15:57)
[2022-09-11] MEDS: cefTRIAXone sodium 1 GM in 0.9 % Sodium Chloride 50 ML IV (05:37)
[2022-09-11 06:33] LABS: Mean Corpuscular HGB Conc 33.2 g/dl (31.0-36.0); Mean Corpuscular Hemoglobin 26.5 pg (27.0-33.0); Mean Platelet Volume 11.1 fL (9.4-12.4); Red Cell Distribution Width 18.4 % (11.0-16.0); White Blood Count 4.3 X10*3/uL (4.8-10.8)
[2022-09-11 07:23] LABS: Glucose, Whole Blood 369 mg/dL (60-115)
[2022-09-11 07:51] LABS: Anion Gap 14 (12-20); Blood Urea Nitrogen 26 mg/dL (9-16); Calcium 7.6 mg/dL (8.4-10.2); Carbon Dioxide 20 mmol/L (22-29); Chloride 98 mmol/L (96-108); Creatinine Clr Calc Pharmacy 51.5; Estimated Glomerular Filt Rate 47; Glucose Random 406 mg/dL (60-115); Potassium 4.2 mmol/L (3.3-5.1); Sodium 128 mmol/L (135-145)
[2022-09-11 08:17] LABS: Hematocrit 20.8 % (42.0-52.0); Hemoglobin 6.9 g/dl (14.0-18.0); Platelet Count 79 X10*3/uL (160-400)
[2022-09-11] MEDS: glipiZIDE 10 MG TABLET PO (08:48)
[2022-09-11] MEDS: Midodrine HCl 5 MG TABLET PO ×3 (08:48→22:15)
[2022-09-11] MEDS: Ferrous Sulfate 324 MG TABLET.DR PO ×2 (08:48→17:15)
[2022-09-11] MEDS: Lactulose 20 GM/30 ML SOLUTION PO (08:49)
[2022-09-11] MEDS: Insulin Lispro 100 UNIT/ML 3 ML VIAL SUBCUT ×4 (08:49→22:17)
[2022-09-11] MEDS: Insulin Glargine,Hum.rec.anlog 100 UNIT/ML 10 ML VIAL 20 UNIT SUBCUT (08:50)
[2022-09-11] MEDS: 0.9 % Sodium Chloride Flush 3 ML SYRINGE IVFLUSH ×2 (08:50→17:15)
[2022-09-11 11:28] LABS: Glucose, Whole Blood 443 mg/dL (60-115)
--- NOTE | 2022-09-11 12:12 | HO.PM.IMPN ---
Subjective Subjective Date of Service: 09/11/22 Interval History: Patient feels good with no lightheadedness, no dizziness, no shortness of breath, no fevers no chills denies hematemesis, no melena, noted to have low hemoglobin hematocrit this morning, blood sugar elevated and 400s. Review of Systems Review of Systems: Yes all other systems are reviewed and are negative Physical Exam Vital Signs: Vital Signs: Last Vital Signs Temp 98 F 09/11/22 11:11 Pulse 72 09/11/22 11:11 Resp 16 09/11/22 11:11 BP 116/67 09/11/22 11:11 Pulse Ox 97 09/11/22 07:13 O2 Del Method Room Air 09/11/22 07:13 O2 Flow Rate 5 09/10/22 13:58 BMI result Body Mass Index 29.9 Const: Other: General awake alert, in no acute distress. Neck supple no JVD. CVS regular rate rhythm, Respiratory lungs clear to auscultation, no respiratory distress, no wheeze, no rhonchi. Gastrointestinal abdomen distended, nontender, bowel sounds audible, no guarding , no rigidity. Extremities no clubbing cyanosis or edema. Neuro nonfocal , moving all 4 extremity speech clear. Skin no rash Psych appropriate affect Objective Data Active Medications Acetaminophen (Acetaminophen 325 Mg Tablet) 650 mg PO Q12H PRN PRN Reason: Pain, Mild (Pain Scale 1-3) Docusate Sodium (Docusate Sodium 100 Mg Capsule) 100 mg PO DAILY PRN PRN Reason: Constipation Ferrous Sulfate (Ferrous Sulfate 324 Mg Tablet.) 324 mg PO BIDWM [facility] Last Admin: 09/11/22 08:48 Dose: 324 mg Documented By: MUSA Glipizide (Glipizide 10 Mg Tablet) 10 mg PO DAILY [facility] Last Admin: 09/11/22 08:48 Dose: 10 mg Documented By: MUSA Glucose (Glucose Gel 15 Gm Gel..Gram.) 15 gm PO Q15M PRN; Protocol PRN Reason: per Hypoglycemia Standing Ord. Dextrose (D10) 250 mls @ 750 mls/hr IV Q15M PRN; Protocol PRN Reason: per Hypoglycemia Standing Ord. Ceftriaxone Sodium 1 gm/ (Sodium Chloride) 50 mls @ 100 mls/hr IV Q24H [facility] Last Infusion: 09/11/22 06:07 Dose: 0 mls/hr Documented By: SAMANTA Insulin Glargine (Insulin Glargine,Hum.Rec.Anlog 100 Unit/Ml 10 Ml Vial) 20 unit SUBCUT DAILY [facility] Last Admin: 09/11/22 08:50 Dose: 20 unit Documented By: MUSA Insulin Human Lispro (Insulin Lispro 100 Unit/Ml 3 Ml Vial) 0 unit SUBCUT QIDACHS [facility]; Protocol Last Admin: 09/11/22 11:48 Dose: 14 unit Documented By: MUSA Lactulose (Lactulose 20 Gm/30 Ml Solution) 20 gm PO DAILY [facility] Last Admin: 09/11/22 08:49 Dose: 20 gm Documented By: MUSA Midodrine (Midodrine Hcl 5 Mg Tablet) 5 mg PO TID [facility] Last Admin: 09/11/22 08:48 Dose: 5 mg Documented By: MUSA Omeprazole (Omeprazole 20 Mg Capsule.) 20 mg PO BID@0630,1630 [facility] Last Admin: 09/11/22 05:37 Dose: 20 mg Documented By: SAMANTA Ondansetron HCl (Ondansetron Hcl 4 Mg/2 Ml Vial) 4 mg IVPUSH Q8H PRN PRN Reason: Nausea and Vomiting Sodium Chloride (0.9 % Sodium Chloride Flush 3 Ml Syringe) 3 ml IVFLUSH QSHIFT [facility] Last Admin: 09/11/22 08:50 Dose: 3 ml Documented By: MUSA Labs 09/11/22 05:54 09/11/22 05:54 Labs: Laboratory Results - last 24 hr 09/08/22 09/10/22 09/10/22 23:29 05:50 13:00 MCV MCH MCHC RDW Plt Count MPV Absolute Nucleated RBC Nucleated RBC % (auto) Anion Gap Estim Creat Clear Calc Estimated GFR POC Glucose 212 H Random Glucose Calcium Iron 19 L TIBC 141 L % Saturation 13 L Unsat Iron Binding 122 Blood Type A Positive Antibody Screen NEGATIVE Crossmatch See Detail 09/10/22 09/10/22 09/11/22 16:38 20:45 05:54 MCV 80.0 MCH 26.5 L MCHC 33.2 RDW 18.4 H Plt Count 79 L MPV 11.1 Absolute Nucleated RBC 0.000 Nucleated RBC % (auto) 0.0 Anion Gap Estim Creat Clear Calc Estimated GFR POC Glucose 323 H 390 H* Random Glucose Calcium Iron TIBC % Saturation Unsat Iron Binding Blood Type Antibody Screen Crossmatch 09/11/22 09/11/22 09/11/22 05:54 07:11 11:18 MCV MCH MCHC RDW Plt Count MPV Absolute Nucleated RBC Nucleated RBC % (auto) Anion Gap 14 Estim Creat Clear Calc 51.5 Estimated GFR 47 POC Glucose 369 H* 443 H* Random Glucose 406 H* Calcium 7.6 L Iron TIBC % Saturation Unsat Iron Binding Blood Type Antibody Screen Crossmatch Microbiology Microbiology Results: Microbiology 09/09/22 Unknown Urine Culture - Preliminary Urine clean catch - Urine weeks top Gram negative julio Assessment and Plan (1) Acute UTI: Status: Acute Plan 57-year-old male with past medical history of liver? cirrhosis, diabetes, noncompliant with his medications presents to the hospital with complaints of weakness, shortness of breath, and generally not feeling well to have multiple complications Acute on chronic Normocytic anemia possibly secondary to GI bleed received total 2 units of PRBC hemoglobin improved to 7.2 but dropped to 6.9 this morning with no active GI bleed in last 48 hours Iron studies not consistent with iron deficiency but may be due to anemia of chronic disease and due to acute blood loss GI consulted>EGD 09/10/22> nonbleeding esophageal varices, mild portal hypertensive gastropathy and gastritis Will transfuse 1 more unit of packed RBC and give IV iron home when 0 400 mg x 2 days acute on chronic hyponatremia. baseline around 128-130 secondary to hypervolumic?hyponatremia in the setting of ascites serum osmolality to 280s, urine osmolality 533, random urine less than 20,?suggestive of cirrhosis causing hyponatremia nephrology consulted rec albumin x3 doses , follow BMP Diabetes 2 with hyperglycemia secondary to noncompliance with diabetic?management. Blood sugar and 400s, Place on glipizide 10 mg daily and give Lantus 20 units now and placed on 40 units at bedtime, continue sliding scale insulin, takes 80 units of Lantus at home cont. diabetic diet liver cirrhosis/ abdominal distension/ascites Persistent abdominal distension, no pain ,s/p paracentesis 4/3/23 with removal of 5.2L clear fluid , recommend outpatient follow-up with GI UTI positive UA, urine culture greater than 100,000 gram-negative julio will treat empirically with ceftriaxone follow culture CAROL ANN. likely hepatorenal, continue IV albumin follow BMP, hold fluid restriction nephrology following DVT prophylaxis:? Lovenox DISPO Home when medically stable continued hospital stay for treatment of GI bleed, pending EGD for possible variceal bleeding Time Spent With Patient Time: Total time managing care of this patient today ____ minutes. Quality Stroke Does the patient have a stroke diagnosis?: No VTE Prior VTE?: No VTE Risk Level:: Medical - moderate - high VTE Device Contraindication: Treatment Not Indicated VTE Drug Contraindication: N/A - Med Ordered
--- NOTE | 2022-09-11 13:32 | MHC.CM.PN ---
Per MD rounds no dc today. H?H has decreased this am. Patient will receive an additional transfusion today. DP home self care. Patient will arrange for transportation home at discharge.
--- NOTE | 2022-09-11 14:10 | HO.POSTANES ---
Post Anesthesia Evaluation Post Anesthesia Evaluation Vital Signs: Vital Signs Temp Pulse Resp BP Pulse Ox O2 Del Method 09/11/22 12:50 97.8 F 93 18 127/58 L 09/11/22 12:32 97.2 F 96 18 127/60 09/11/22 11:11 98 F 72 16 116/67 09/11/22 12:00 97.2 F 96 18 127/60 98 Room Air 09/11/22 07:13 97.3 F 80 18 100/50 L 97 Room Air 09/11/22 02:39 98.7 F 95 14 105/51 L 95 Anesthesia: Monitored Mental Status: Awake Pain Control: Satisfactory Nausea/Vomiting: None Hydration: Adequate Anesthesia-Related Issues: No Anes. Related Issues
--- NOTE | 2022-09-11 14:50 | PM.PNNEP ---
Subjective Subjective Date of Service: 09/11/22 Interval history: Seen and examined, events noted Physical Exam Vital Signs: Vital Signs: Last Vital Signs Temp 97.8 F 09/11/22 12:50 Pulse 93 09/11/22 12:50 Resp 18 09/11/22 12:50 BP 127/58 L 09/11/22 12:50 Pulse Ox 98 09/11/22 12:00 O2 Del Method Room Air 09/11/22 12:00 O2 Flow Rate 5 09/10/22 13:58 BMI result Body Mass Index 29.9 Const: Other: muscle wasting, cachectic General: cooperative and no acute distress Orientation/consciousness: patient oriented x3 Limitations: No language barrier Eyes: General: appearance normal, both eyes and all related structures Resp: Effort & Inspection: normal respiratory effort Auscultation: clear to auscultation bilaterally Cardio: Rate: regular rate Rhythm: regular rhythm GI: Other: abdomen is distended 3+, tender to palpation, no rebound or guarding Palpation (GI): Soft to palpation Auscultation: normal bowel sounds Skin: General skin exam: no rashes or lesions noted Neuro: General: patient oriented x3 Cognition (Neuro): normal cognition Extrem: Other: 2+ pedal edema General: Yes normal to inspection Objective Data Labs 09/11/22 05:54 09/11/22 05:54 Labs: Laboratory Results - last 24 hr 09/08/22 09/10/22 09/10/22 23:29 16:38 20:45 WBC RBC Hgb Hct MCV MCH MCHC RDW Plt Count MPV Absolute Nucleated RBC Nucleated RBC % (auto) Sodium Potassium Chloride Carbon Dioxide Anion Gap BUN Creatinine Estim Creat Clear Calc Estimated GFR POC Glucose 323 H 390 H* Random Glucose Calcium Blood Type A Positive Antibody Screen NEGATIVE Crossmatch See Detail 09/11/22 09/11/22 09/11/22 05:54 05:54 07:11 WBC 4.3 L RBC 2.60 L Hgb 6.9 L* Hct 20.8 L* MCV 80.0 MCH 26.5 L MCHC 33.2 RDW 18.4 H Plt Count 79 L MPV 11.1 Absolute Nucleated RBC 0.000 Nucleated RBC % (auto) 0.0 Sodium 128 L Potassium 4.2 Chloride 98 Carbon Dioxide 20 L Anion Gap 14 BUN 26 H Creatinine 1.52 H Estim Creat Clear Calc 51.5 Estimated GFR 47 POC Glucose 369 H* Random Glucose 406 H* Calcium 7.6 L Blood Type Antibody Screen Crossmatch 09/11/22 11:18 WBC RBC Hgb Hct MCV MCH MCHC RDW Plt Count MPV Absolute Nucleated RBC Nucleated RBC % (auto) Sodium Potassium Chloride Carbon Dioxide Anion Gap BUN Creatinine Estim Creat Clear Calc Estimated GFR POC Glucose 443 H* Random Glucose Calcium Blood Type Antibody Screen Crossmatch Microbiology Microbiology Results: Microbiology 09/09/22 Unknown Urine clean catch - Urine weeks top Urine Culture - Preliminary Gram negative julio Procedures Date of Service Date of Service: 09/11/22 Assessment & Plan Assessment and plan (1) Acute hyponatremia: Status: Acute (2) Hyperglycemia due to diabetes mellitus: Status: Acute (3) Abdominal ascites: Status: Acute (4) Acute kidney injury superimposed on CKD: Status: Acute (5) Normocytic anemia: Status: Acute (6) Black stools: Status: Acute (7) Acute UTI: Status: Acute Plan 57-year-old liver? cirrhosis, diabetes, noncompliant with his medications asked to see PT re: CAROL ANN, HypoNa - CAROL ANN: Scr reamins stable 1.3-1.5 - Hypervol HypoNa: SNa improved with IV alb; note low SNa initial inpart d/t high BS ( hyperosm component of hypoNa) - Hyervol: d/t cirrhsosis w asities REC: cont to track UOP/renal fnc; avoid NToxinsl; hold off starting midrdine and octreotide for now Time Spent With Patient Time: Total time managing care of this patient today ____ minutes. Progress Note: Quality Stroke Does the patient have a stroke diagnosis?: No
[2022-09-11] MEDS: Iron Sucrose Complex 100 MG in 0.9 % Sodium Chloride 50 ML 220 MG IV (15:57)
[2022-09-11 16:43] LABS: Glucose, Whole Blood 372 mg/dL (60-115)
[2022-09-11 20:31] LABS: Glucose, Whole Blood 327 mg/dL (60-115)
[2022-09-11] MEDS: Insulin Glargine,Hum.rec.anlog 100 UNIT/ML 10 ML VIAL 30 UNIT SUBCUT (22:15)
[2022-09-12 03:43] VITALS: BP 116/61; PULSE 94; RESP 18; TEMP 36.6; O2SAT 94
[2022-09-12] MEDS: Omeprazole 20 MG CAPSULE.DR PO (06:16)
[2022-09-12] MEDS: cefTRIAXone sodium 1 GM in 0.9 % Sodium Chloride 50 ML IV (06:16)
[2022-09-12 07:43] LABS: Glucose, Whole Blood 303 mg/dL (60-115)
[2022-09-12 07:54] LABS: Hemoglobin 7.6 g/dl (14.0-18.0); Mean Corpuscular Hemoglobin 26.9 pg (27.0-33.0); Mean Corpuscular Volume 81.3 fL (80.0-98.0); Mean Platelet Volume 11.2 fL (9.4-12.4); Red Blood Count 2.83 X10*6/uL (4.60-5.80); Red Cell Distribution Width 18.6 % (11.0-16.0)
[2022-09-12 08:00] VITALS: BP 107/53; PULSE 98; RESP 18; TEMP 36.1; O2SAT 98
[2022-09-12 08:02] LABS: Platelet Count 83 X10*3/uL (160-400)
[2022-09-12] MEDS: Insulin Lispro 100 UNIT/ML 3 ML VIAL SUBCUT ×2 (08:02→11:39)
[2022-09-12] MEDS: glipiZIDE 10 MG TABLET PO (08:03)
[2022-09-12] MEDS: Lactulose 20 GM/30 ML SOLUTION PO (08:03)
[2022-09-12] MEDS: 0.9 % Sodium Chloride Flush 3 ML SYRINGE IVFLUSH (08:03)
[2022-09-12] MEDS: Midodrine HCl 5 MG TABLET PO (08:03)
[2022-09-12] MEDS: Ferrous Sulfate 324 MG TABLET.DR PO (08:03)
[2022-09-12] MEDS: Insulin Glargine,Hum.rec.anlog 100 UNIT/ML 10 ML VIAL 20 UNIT SUBCUT (08:03)
[2022-09-12 08:06] LABS: Anion Gap 11 (12-20); Blood Urea Nitrogen 25 mg/dL (9-16); Calcium 7.6 mg/dL (8.4-10.2); Carbon Dioxide 25 mmol/L (22-29); Chloride 99 mmol/L (96-108); Creatinine Clr Calc Pharmacy 61.1; Estimated Glomerular Filt Rate 58; Glucose Random 298 mg/dL (60-115); Potassium 3.8 mmol/L (3.3-5.1); Sodium 131 mmol/L (135-145)
[2022-09-12] MEDS: Iron Sucrose Complex 100 MG in 0.9 % Sodium Chloride 50 ML 220 MG IV (08:23)
--- NOTE | 2022-09-12 10:55 | MHC.CM.PN ---
PT WILL DC HOME TODAY WITH NO SERVICES PT TO ARRANGE TRANSPORT
[2022-09-12 11:14] VITALS: BP 107/59; PULSE 90; RESP 18; TEMP 36.6; O2SAT 97
[2022-09-12 11:24] LABS: Glucose, Whole Blood 304 mg/dL (60-115)
--- NOTE | 2022-09-12 11:31 | PM.PNNEP ---
Subjective Subjective Date of Service: 09/12/22 Interval history: Seen and examined, events noted Physical Exam Vital Signs: Vital Signs: Last Vital Signs Temp 97.8 F 09/12/22 11:14 Pulse 90 09/12/22 11:14 Resp 18 09/12/22 11:14 BP 107/59 L 09/12/22 11:14 Pulse Ox 97 09/12/22 11:14 O2 Del Method Room Air 09/12/22 11:14 O2 Flow Rate 5 09/10/22 13:58 BMI result Body Mass Index 29.9 Const: Other: muscle wasting, cachectic General: cooperative and no acute distress Orientation/consciousness: patient oriented x3 Limitations: No language barrier Eyes: General: appearance normal, both eyes and all related structures Resp: Effort & Inspection: normal respiratory effort Auscultation: clear to auscultation bilaterally Cardio: Rate: regular rate Rhythm: regular rhythm GI: Other: abdomen is distended 3+, tender to palpation, no rebound or guarding Palpation (GI): Soft to palpation Auscultation: normal bowel sounds Skin: General skin exam: no rashes or lesions noted Neuro: General: patient oriented x3 Cognition (Neuro): normal cognition Extrem: Other: 2+ pedal edema General: Yes normal to inspection Objective Data Labs 09/12/22 05:58 09/12/22 05:58 Labs: Laboratory Results - last 24 hr 09/08/22 09/11/22 09/11/22 23:29 16:35 20:23 WBC RBC Hgb Hct MCV MCH MCHC RDW Plt Count MPV Absolute Nucleated RBC Nucleated RBC % (auto) Sodium Potassium Chloride Carbon Dioxide Anion Gap BUN Creatinine Estim Creat Clear Calc Estimated GFR POC Glucose 372 H* 327 H Random Glucose Calcium Blood Type A Positive Antibody Screen NEGATIVE Crossmatch See Detail 09/12/22 09/12/22 09/12/22 05:58 05:58 07:19 WBC 5.0 RBC 2.83 L Hgb 7.6 L Hct 23.0 L MCV 81.3 MCH 26.9 L MCHC 33.0 RDW 18.6 H Plt Count 83 L MPV 11.2 Absolute Nucleated RBC 0.000 Nucleated RBC % (auto) 0.0 Sodium 131 L Potassium 3.8 Chloride 99 Carbon Dioxide 25 Anion Gap 11 L BUN 25 H Creatinine 1.28 Estim Creat Clear Calc 61.1 Estimated GFR 58 POC Glucose 303 H Random Glucose 298 H Calcium 7.6 L Blood Type Antibody Screen Crossmatch 09/12/22 11:13 WBC RBC Hgb Hct MCV MCH MCHC RDW Plt Count MPV Absolute Nucleated RBC Nucleated RBC % (auto) Sodium Potassium Chloride Carbon Dioxide Anion Gap BUN Creatinine Estim Creat Clear Calc Estimated GFR POC Glucose 304 H Random Glucose Calcium Blood Type Antibody Screen Crossmatch Microbiology Microbiology Results: Microbiology 09/09/22 Unknown Urine clean catch - Urine weeks top Urine Culture - Final Escherichia coli Procedures Date of Service Date of Service: 09/12/22 Assessment & Plan Assessment and plan (1) Acute hyponatremia: Status: Acute (2) Hyperglycemia due to diabetes mellitus: Status: Acute (3) Abdominal ascites: Status: Acute (4) Acute kidney injury superimposed on CKD: Status: Acute (5) Normocytic anemia: Status: Acute (6) Black stools: Status: Acute (7) Acute UTI: Status: Acute Plan 57-year-old liver? cirrhosis, diabetes, noncompliant with his medications asked to see PT re: CAROL ANN, HypoNa - CAROL ANN: Scr reamins stable 1.3-1.5 - Hypervol HypoNa: SNa improved with IV alb; note low SNa initial inpart d/t high BS ( hyperosm component of hypoNa) - Hyervol: d/t cirrhsosis w asities REC: cont to track UOP/renal fnc; avoid NToxinsl; ok to d/c from renal standpoint on 50% usu diuretic regiment I will arrang f/u as outpt Time Spent With Patient Time: Total time managing care of this patient today ____ minutes. Progress Note: Quality Stroke Does the patient have a stroke diagnosis?: No
--- NOTE | 2022-09-12 11:35 | P.DS_ITS ---
DS: Providers Provider Date of Service: 09/12/22 Date of admission: 09/09/22 02:03 Primary care physician: JERI Rodriguez Consults: 09/09/22 02:00 Consult to Nephrology Routine Consulting Provider: [facility] Reason for consultation: Hyponatremia Has provider been notified: No 09/09/22 06:26 Consult to Gastroenterology Routine Consulting Provider: Maverick Zuluaga Reason for consultation: GI bleed? DS: Diagnosis Discharge Diagnosis (1) Acute hyponatremia: Status: Acute (2) Hyperglycemia due to diabetes mellitus: Status: Acute (3) Abdominal ascites: Status: Acute (4) Acute kidney injury superimposed on CKD: Status: Acute (5) Normocytic anemia: Status: Acute (6) Black stools: Status: Acute (7) Acute UTI: Status: Acute DS: Summary Hospital Course Hospital Course: HP as per admitting provider 57-year-old male with past medical history of liver cirrhosis, secondary to alcohol abuse /hepatitis, diabetes, history of CAD, HTN, history of esophageal varices who presents to the hospital with complaints of weakness, SOB, cough, abd distension for the past several weeks worsening over the last week.? Patient states that he has not followed up with PCP in 5-6 months, and has not taken his insulin for about a week.? When asked about review of system he does endorse shortness of breath, cough, no chest pain , no palpitations.? He does report abdominal pain due to distension which is chronic, has not worsened, denies any fever no chills, denies any urinary symptoms and reports chronic lower extremity edema that has not worsened.Patient also states that he had 2 episodes of black stools for the past 2 days with no hematemesis,? or hemoptysis.?On arrival to the ED patient found to have a blood pressure of 110/ 47 Labs are significant for? WBC count of 6.6, hemoglobin of 7.6 which dropped from 11.3 in May, hematocrit 23 INR of 1.6, sodium of 120, potassium 5.8, chloride of 91, creatinine of 1.57, glucose of 506, asthma Swathi of 287, total bili of 2.4, AST of 65, ALT of 41, alk-phos of 242 which are relatively the same as previous, troponin negative, ammonia of 35, BNP of 86 albumin of 2.0 chest x-ray shows bilateral linear atelectasis with no evidence of pneumonia or pulmonary edema Abdominal pelvic CT shows bases of the lungs are clear, morphologically cirrhotic liver with large volume ascites and portosystemic? collateralization patient started on IV fluids, in ED and will be admitted for further management . Normocytic anemia. acute on chronic with a baseline around 11,? down as low as? 6.5/19.2. possibly secondary to GI bleed. received total 3 units of PRBC, and IV iron x2 days, iron studies consistent with anemia of chronic disease but had low iron saturation GI consulted>EGD 09/10/22> nonbleeding esophageal varices, mild portal hypertensive gastropathy and gastritis. Advanced diet. Nadolol if in when BP allows as per GI IV PPI>oral.........Iron low, added supplement Acute on chronic hyponatremia. Baseline 128-130 secondary to hypervolemic hyponatremia in the setting of ascites. serum osmolality to 280s, urine osmolality 533, random urine less than 20,?suggestive of cirrhosis causing hyponatremia, nephrology consulted rec albumin x3 doses. Dose of Lasix reduced to 40 mg daily recommend to continue Aldactone 50 mg daily. Diabetes 2 with hyperglycemia. Continue home medications, recommend compliance with medication and diabetic diet Liver cirrhosis/ abdominal distension/ascites. No concern for SBP. Status post paracentesis 09/09/2022 with 5.2 L of clear fluid removed UTI. Treated with IV Rocephin. Urine cx grew E coli sensitive to ceftriaxone therefore being discharged home on Ceftin 250 mg b.i.d. to finish a total 7 day course of antibiotics CAROL ANN. Resolved, Treated with IV fluids and albumin, was followed by Dr. Carballo recommend to reduce dose of Lasix to 40 mg daily and Aldactone 50 mg daily recommend outpatient follow-up with Nephrology in 1 week Time Spent with Patient Time attestation: Total time managing care of this patient today ____ minutes. Discharge coordination time: Greater than 30 minutes Quality: Safe Use of Opioids Does Pt have an Active Cancer Diagnosis on the Problem List?: No Quality: Stroke Does the patient have a stroke diagnosis?: No Physical Exam Vital Signs: Vital Signs: Last Vital Signs Temp 97.8 F 09/12/22 11:14 Pulse 90 09/12/22 11:14 Resp 18 09/12/22 11:14 BP 107/59 L 09/12/22 11:14 Pulse Ox 97 09/12/22 11:14 O2 Del Method Room Air 09/12/22 11:14 O2 Flow Rate 5 09/10/22 13:58 BMI result Body Mass Index 29.9 Const: Other: General awake alert, in no acute distress.? Neck supple no JVD. CVS? regular rate rhythm, Respiratory lungs clear to auscultation, no respiratory distress, no wheeze, no rhonchi. Gastrointestinal abdomen distended, non tender, bowel sounds audible, no guarding , no rigidity. Extremities no edema. Neuro nonfocal , moving all 4 extremity speech clear. Skin no rash Psych appropriate affect DS: Data Data Completed and Pending Labs on day of discharge: Laboratory Results - last 24 hr 09/08/22 09/11/22 09/11/22 23:29 16:35 20:23 WBC RBC Hgb Hct MCV MCH MCHC RDW Plt Count MPV Absolute Nucleated RBC Nucleated RBC % (auto) Sodium Potassium Chloride Carbon Dioxide Anion Gap BUN Creatinine Estim Creat Clear Calc Estimated GFR POC Glucose 372 H* 327 H Random Glucose Calcium Blood Type A Positive Antibody Screen NEGATIVE Crossmatch See Detail 09/12/22 09/12/22 09/12/22 05:58 05:58 07:19 WBC 5.0 RBC 2.83 L Hgb 7.6 L Hct 23.0 L MCV 81.3 MCH 26.9 L MCHC 33.0 RDW 18.6 H Plt Count 83 L MPV 11.2 Absolute Nucleated RBC 0.000 Nucleated RBC % (auto) 0.0 Sodium 131 L Potassium 3.8 Chloride 99 Carbon Dioxide 25 Anion Gap 11 L BUN 25 H Creatinine 1.28 Estim Creat Clear Calc 61.1 Estimated GFR 58 POC Glucose 303 H Random Glucose 298 H Calcium 7.6 L Blood Type Antibody Screen Crossmatch 09/12/22 11:13 WBC RBC Hgb Hct MCV MCH MCHC RDW Plt Count MPV Absolute Nucleated RBC Nucleated RBC % (auto) Sodium Potassium Chloride Carbon Dioxide Anion Gap BUN Creatinine Estim Creat Clear Calc Estimated GFR POC Glucose 304 H Random Glucose Calcium Blood Type Antibody Screen Crossmatch Discharge Plan Discharge Anticipated Discharge Date/Time: 09/12/22 11:30 Patient Disposition: Home, Self-Care Discharge Diagnosis: Acute on chronic normocytic anemia Acute on chronic hyponatremia UTI CAROL ANN Referrals: Dony Morgan PA [Primary Care Provider] - 1 Week Discharge Medications: New cefuroxime axetil 250 mg tablet 250 mg PO BID Qty: 8 0RF ferrous sulfate 325 mg (65 mg iron) tablet 325 mg PO BID Qty: 60 0RF Continued atorvastatin 20 mg tablet 20 mg PO DAILY omeprazole 20 mg capsule,delayed release(DR/EC) 20 mg PO DAILY trazodone 50 mg tablet 50 mg PO BEDTIME PRN (Reason: insomnia) hydroxyzine HCl 25 mg tablet 25 mg PO TID PRN (Reason: itch) spironolactone 50 mg tablet 50 mg PO BEDTIME insulin glargine-yfgn [Semglee(insulin glarg-yfgn)Pen] 100 unit/mL (3 mL) insulin pen 80 unit subcut BEDTIME Changed glipizide 10 mg tablet extended release 24hr 10 mg PO DAILY Qty: 30 0RF furosemide 20 mg tablet 40 mg PO DAILY Qty: 60 0RF Discontinued spironolactone 50 mg tablet 100 mg PO DAILY Discharge Orders: Discharge Order (Routine); Ordered 09/12/22 Ordered By: Aj Mijares Diet: Diabetic diet Activity on Discharge: As tolerated Stand Alone Forms: Patient Portal Discharge page Care Plan Goals: Take all home medications as prescribed Take Lasix 40 mg daily, Aldactone 50 mg daily, glipizide 10 mg daily Take Ceftin 1 tablet twice daily for 4 more days Health Concerns: Diabetes elevated blood sugars strongly recommend follow diabetic diet and take home medications Plan of Treatment: outpatient follow-up with Dr. Zuluaga and Dr. Carballo from Nephrology, call to make appointment in next 1-2 weeks Assessment: As above
== END 2022-09-12 13:33 | disposition home or self-care (01) | DRG 432 ==
LOC: HO.ED 22:19 → HO.EDOVER 09-09 02:10 → HO.S3 09-09 04:07
PROVIDERS: Internal Medicine; Internal Medicine Gastroenterology; Nurse Practitioner Acute Care; Physician Assistant; Radiology Diagnostic Radiology; Admitting Provider Internal Medicine; Emergency Provider Internal Medicine; PCP Physician Assistant Medical; Visit Provider Hospitalist
PROC: 0W9G3ZZ Drainage of Peritoneal Cavity, Percutaneous Approach (ICD-10-PCS; principal; 2022-09-09 15:00)
PROC: 0DJ08ZZ Inspection of Upper Intestinal Tract, Via Natural or Artificial Opening Endoscopic (ICD-10-PCS; CPT 43235; principal; 2022-09-10 13:30)
DX: K70.31 Alcoholic cirrhosis of liver with ascites (principal); K76.7 Hepatorenal syndrome; E87.1 Hypo-osmolality and hyponatremia; N39.0 Urinary tract infection, site not specified; N17.9 Acute kidney failure, unspecified; K76.6 Portal hypertension; I85.10 Secondary esophageal varices without bleeding; I10 Essential (primary) hypertension; E78.5 Hyperlipidemia, unspecified; E11.22 Type 2 diabetes mellitus with diabetic chronic kidney disease; E11.65 Type 2 diabetes mellitus with hyperglycemia; D63.1 Anemia in chronic kidney disease; N18.9 Chronic kidney disease, unspecified; K31.89 Other diseases of stomach and duodenum; F10.11 Alcohol abuse, in remission; Z20.822 Contact with and (suspected) exposure to COVID-19; K31.7 Polyp of stomach and duodenum; Z91.148 Patient's other noncompliance with medication regimen for other reason; Z86.19 Personal history of other infectious and parasitic diseases; I25.2 Old myocardial infarction; Z95.5 Presence of coronary angioplasty implant and graft; Z88.0 Allergy status to penicillin; Z88.5 Allergy status to narcotic agent; Z79.4 Long term (current) use of insulin; Z79.84 Long term (current) use of oral hypoglycemic drugs; Z79.899 Other long term (current) drug therapy
CPT/HCPCS: 36415; 49083; 71045; 74176; 80048; 80053; 81001; 82140; 82272; 82436; 82947; 83540; 83735; 83880; 83930; 83935; 84300; 84484; 85025; 85027; 85610; 85730; 86850; 86900; 86901; 86923; 87086; 87088; 87186; 87502; 87635; 93005; 99285; J0696; J1650; J1756; J1940; J3430; P9016; P9047

== ENCOUNTER 2022-09-24 15:54 | Outpatient (REF) | payer OTHER, SELFPAY ==
[2022-09-24 16:25] LABS: MANUAL DIFF FLAG NO
[2022-09-24 18:09] LABS: Basophils Percent Auto 0.9 % (0-2); Eosinophils Absolute Auto 0.2 X10*3/uL (0.0-0.4); Eosinophils Percent Auto 4.6 % (0-4); Hematocrit 31.9 % (42.0-52.0); Hemoglobin 10.3 g/dl (14.0-18.0); Imm Gran Abs Auto 0.02 X10*3/uL (0.00-0.03); Imm Gran Pct Auto 0.6 % (0.0-0.4); Lymphocytes Absolute Auto 0.5 X10*3/uL (1.2-4.9); Lymphocytes Percent Auto 15.5 % (20-40); Mean Corpuscular HGB Conc 32.3 g/dl (31.0-36.0); Mean Corpuscular Volume 89.9 fL (80.0-98.0); Mean Platelet Volume 10.9 fL (9.4-12.4); Monocytes Absolute Auto 0.4 X10*3/uL (0.1-1.2); Monocytes Percent Auto 11.5 % (2-11); Neutrophils Absolute Auto 2.3 x10*3/uL (2.0-8.3); Neutrophils Percent Auto 66.9 % (45-73); Red Blood Count 3.55 X10*6/uL (4.60-5.80); Red Cell Distribution Width 21.5 % (11.0-16.0); White Blood Count 3.5 X10*3/uL (4.8-10.8)
[2022-09-24 18:17] LABS: Platelet Count 84 X10*3/uL (160-400)
[2022-09-24 18:29] LABS: INTERNATIONAL NORM RATIO 1.3 (0.9-1.1); Prothrombin Time 15.5 SEC (10.0-13.1)
[2022-09-24 18:32] LABS: Alanine Aminotransferase 38 U/L (0-40); Albumin Level 2.7 g/dL (3.5-5.0); Alkaline Phosphatase 248 U/L (39-117); Anion Gap 12 (12-20); Aspartate Amino Transferase 75 U/L (5-37); Bilirubin Direct 1.1 mg/dL (0.0-0.5); Bilirubin Total 2.1 mg/dL (0.0-1.0); Blood Urea Nitrogen 13 mg/dL (9-16); Carbon Dioxide 27 mmol/L (22-29); Chloride 103 mmol/L (96-108); Estimated Glomerular Filt Rate > 60; Potassium 3.5 mmol/L (3.3-5.1); Sodium 138 mmol/L (135-145); Total Protein 6.5 g/dL (6.5-8.0)
== END 2022-09-24 15:55 | disposition home or self-care (01) ==
LOC: HO.LAB 15:54
PROVIDERS: PCP Physician Assistant Medical; Visit Provider Internal Medicine
DX: K70.31 Alcoholic cirrhosis of liver with ascites (principal)
CPT/HCPCS: 36415; 80051; 80076; 82565; 84520; 85025; 85610

== ENCOUNTER 2022-10-03 05:42 | Inpatient (IN) | payer OTHER, SELFPAY ==
[2022-10-03] VITALS (8 sets, daily range): BP systolic 110–136; BP diastolic 60–77; PULSE 78–98; RESP 16–21; TEMP 36.2–36.9; O2SAT 93–100; BMI 27.8; BMI 26.3
--- NOTE | 2022-10-03 | ECG_ITS ---
Test Reason : ALTERED MENTAL STATUS Blood Pressure : / mmHG Vent. Rate : 092 BPM Atrial Rate : 092 BPM P-R Int : 146 ms QRS Dur : 078 ms QT Int : 386 ms P-R-T Axes : 050 032 041 degrees QTc Int : 477 ms Normal sinus rhythm Nonspecific ST and T wave abnormality Abnormal ECG When compared with ECG of 08-SEP-2022 21:00, No significant change was found Referred By: Generic ED Physician Electronically Signed By:Dany Graham
--- NOTE | ~2022-10-03 | US_ITS ---
EXAMINATION: US ABDOMEN LIMITED CLINICAL INFORMATION: Ascites check. COMPARISON: September 09, 2022 TECHNIQUE: 4 quadrant ultrasound for fluid. FINDINGS: Scanning in all 4 quadrants of the abdomen did not demonstrate any ascites today. US/US abdomen limited IMPRESSION: No ascites.
[2022-10-03 06:16] LABS: Basophils Percent Auto 0.6 % (0-2); Eosinophils Absolute Auto 0.3 X10*3/uL (0.0-0.4); Eosinophils Percent Auto 5.7 % (0-4); Hematocrit 34.5 % (42.0-52.0); Hemoglobin 11.5 g/dl (14.0-18.0); Imm Gran Abs Auto 0.02 X10*3/uL (0.00-0.03); Imm Gran Pct Auto 0.4 % (0.0-0.4); Lymphocytes Absolute Auto 0.8 X10*3/uL (1.2-4.9); Lymphocytes Percent Auto 15.5 % (20-40); MANUAL DIFF FLAG NO; Mean Corpuscular HGB Conc 33.3 g/dl (31.0-36.0); Mean Corpuscular Hemoglobin 28.9 pg (27.0-33.0); Mean Corpuscular Volume 86.7 fL (80.0-98.0); Monocytes Absolute Auto 0.6 X10*3/uL (0.1-1.2); Monocytes Percent Auto 12.5 % (2-11); Neutrophils Absolute Auto 3.2 x10*3/uL (2.0-8.3); Neutrophils Percent Auto 65.3 % (45-73); Platelet Count 106 X10*3/uL (160-400); Red Blood Count 3.98 X10*6/uL (4.60-5.80); Red Cell Distribution Width 18.6 % (11.0-16.0); White Blood Count 4.9 X10*3/uL (4.8-10.8)
[2022-10-03 06:18] LABS: Glucose, Whole Blood 363 mg/dL (60-115)
[2022-10-03 06:22] LABS: Ammonia 138 umol/L (13-55)
--- NOTE | 2022-10-03 06:26 | PC.NURSE ---
[place] cath applied
[2022-10-03 06:35] LABS: Alanine Aminotransferase 36 U/L (0-40); Alkaline Phosphatase 237 U/L (39-117); Anion Gap 16 (12-20); Aspartate Amino Transferase 69 U/L (5-37); Bilirubin Direct 0.8 mg/dL (0.0-0.5); Bilirubin Total 2.1 mg/dL (0.0-1.0); Blood Urea Nitrogen 12 mg/dL (9-16); Calcium 8.9 mg/dL (8.4-10.2); Carbon Dioxide 26 mmol/L (22-29); Chloride 98 mmol/L (96-108); Creatinine Clr Calc Pharmacy 56.8; Estimated Glomerular Filt Rate 60; Glucose Random 388 mg/dL (60-115); Potassium 4.5 mmol/L (3.3-5.1); Sodium 135 mmol/L (135-145); Total Protein 8.3 g/dL (6.5-8.0)
--- NOTE | 2022-10-03 06:46 | ED.AMS ---
HPI - Altered Mental Status General Chief Complaint: Altered Mental Status Stated Complaint: ETOH and AMS Time Seen by Provider: 10/03/22 06:33 Source: patient and old records reviewed Mode of arrival: EMS Limitations: altered mental status History of Present Illness HPI narrative: This is a 57 [id number], with a past medical history of liver cirrhosis secondary to alcohol abuse, diabetes, CAD, hypertension, and history of esophageal varices, who presents to the emergency department via EMS after he was found sleeping in his vehicle on the side of the road. One of patient's front tires was missing. Patient is currently only oriented to self and is incontinent of urine. MD complaint: altered mental status Related Data Home Medications Medication Instructions Recorded Confirmed atorvastatin 20 mg tablet 20 mg PO DAILY 06/29/20 10/03/22 hydroxyzine HCl 25 mg tablet 25 mg PO TID PRN itch 09/09/22 10/03/22 insulin glargine-yfgn 100 unit/mL 45 unit subcut BID 09/09/22 10/03/22 (3 mL) subcutaneous pen (Semglee (insulin glargine-yfgn) Pen) spironolactone 50 mg tablet 50 mg PO BEDTIME 09/09/22 10/03/22 trazodone 50 mg tablet 50 mg PO BEDTIME PRN insomnia 09/09/22 10/03/22 furosemide 20 mg tablet 20 mg PO DAILY 10/03/22 10/03/22 glipizide 2.5 mg tablet, extended 2.5 mg PO DAILY 10/03/22 10/03/22 release 24 hr nadolol 20 mg tablet 20 mg PO DAILY 10/03/22 10/03/22 pantoprazole 40 mg tablet,delayed 40 mg PO DAILY@0630 10/03/22 10/03/22 release semaglutide 2 mg/dose (8 mg/3 mL) 2 mg subcut QWEEK 10/03/22 subcutaneous pen injector (Ozempic) Previous Rx's Medication Instructions Recorded ferrous sulfate 325 mg (65 mg 325 mg PO BID #60 tabs 09/12/22 iron) tablet Allergies Allergy/AdvReac Type Severity Reaction Status Date / Time codeine [CODEINE] Allergy Mild ITCHINESS, Verified 09/08/22 20:47 itching penicillin G Allergy Mild itching Verified 09/08/22 20:47 Review of Systems Review of Systems: Yes Unobtainable due to mental status Constitutional: Constitutional: Reports as per HPI Neurologic: Reports confusion Psychiatric: Psychiatric: Reports confusion [facility] Past Medical History Attestation statement: The following information was validated with the patient. Medical History Abdominal ascites Black stools Chronic hyponatremia Cirrhosis Cirrhosis of liver Diabetes Elevated cholesterol Hepatitis History of alcohol abuse HTN (hypertension) Myocardial infarction Normocytic anemia Varices, esophageal Surgical History H/O colonoscopy History of esophagogastroduodenoscopy (EGD) History of PTCA Hx of hand surgery Social History Social History Household Members: None Housing: Apartment Do you presently have visiting nurse or other home services: No Unable to assess alcohol history related to: Unable to respond Alcohol intake: never Patient Tobacco Use Status: Former Tobacco user Quit Date: 2013 Tobacco use type: Cigarette Second Hand Smoke Exposure: No Use of substances other than those prescribed or required for medical reasons: Unable to respond Advance Directives: No Advance Directives Information Provided: Yes Do you have thoughts of harming others: None Do you have a plan to hurt others: No Plan Recently lost weight without trying: Unsure service: Yes Current occupational status: employed Physical Exam ED Vital Signs: Vital Signs - 24 hr 10/03/22 05:49 10/03/22 06:26 10/03/22 06:55 Temperature 97.6 F 98.5 F Pulse Rate 91 86 83 Respiratory Rate 18 17 17 Blood Pressure 136/77 116/70 111/65 Pulse Oximetry 99 97 97 Oxygen Delivery Method Room Air Room Air Room Air BMI result Body Mass Index 27.8 Const General: comfortable, awake and confusion Nutritional Appearance: malnourished Orientation/consciousness: oriented to person and confusion Limitations: altered mental status HENMT Head: Yes normal to inspection, Yes normocephalic and Yes atraumatic Ears: hearing grossly normal bilaterally General nose exam: Normal external nose present Face and sinus: Yes normal facial exam Mouth: Normal oral and palatal mucosa present, oropharynx normal and moist mucous membranes Throat: Yes posterior oropharynx normal Eyes General: appearance normal, both eyes and all related structures Eyelids: Yes eyelids normal Conjunctivae: conjunctivae normal Sclerae: sclerae normal Pupils: Equal, round and reactive pupils present EOM: EOMs intact bilaterally Neck Neck: Yes normal visual inspection, Yes full ROM and Yes no lymphadenopathy Lymphatic: no lymphadenopathy noted Chest Chest palpation & inspection: normal inspection of the chest Resp Effort & Inspection: normal respiratory effort and able to speak in complete sentences Auscultation: clear to auscultation bilaterally, no crackles, no rales, no rhonchi and no wheezes Cardio Rate: regular rate Rhythm: regular rhythm Heart sounds: S1 normal heart sound present and S2 normal heart sound present GI Other: Abdomen is distended, nontender, no guarding or rigidity. Large umbilical hernia, no surrounding erythema or increased warmth, nontender to palpation. Palpation (GI): Soft to palpation and nontender Auscultation: normal bowel sounds Skin General skin exam: no rashes or lesions noted Trauma: no lacerations or abrasions Wounds: no wounds Neuro General: oriented to person, moves all extremities and confusion Cranial nerves: Yes Equal, round and reactive pupils present Extrem General: Yes normal to inspection Right upper extremity: normal to inspection Left upper extremity: normal to inspection Right lower extremity: normal to inspection Left lower extremity: normal to inspection Medications Administered Generic Name Dose Route Start Last Admin Trade Name Freq PRN Reason Stop Dose Admin Enoxaparin Sodium 40 mg 10/03/22 08:00 10/03/22 09:28 Enoxaparin Sodium 40 Mg/0.4 Ml Syringe SUBCUT 40 mg Q24H IVELISSE Administration Insulin Glargine 5 unit 10/03/22 09:45 10/03/22 10:01 Insulin Glargine,Hum.Rec.Anlog 100 Unit/Ml 10 Ml Vial SUBCUT 5 unit BID IVELISSE Administration Insulin Human Lispro 0 unit 10/03/22 11:30 10/03/22 12:45 Insulin Lispro 100 Unit/Ml 3 Ml Vial SUBCUT 4 unit QIDACHS [facility] Administration Protocol Lactulose 30 gm 10/03/22 09:00 10/03/22 14:07 Lactulose 20 Gm/30 Ml Solution PO 30 gm TID IVELISSE Administration Rifaximin 550 mg 10/03/22 09:00 10/03/22 10:01 Rifaximin 550 Mg Tablet PO 550 mg BID IVELISSE Administration Sodium Chloride 3 ml 10/03/22 08:00 10/03/22 14:07 0.9 % Sodium Chloride Flush 3 Ml Syringe IVFLUSH 3 ml QSHIFT IVELISSE Administration Discontinued Medications Generic Name Dose Route Start Last Admin Trade Name Van PRN Reason Stop Dose Admin Sodium Chloride 1,000 mls @ 999 mls/hr 10/03/22 06:44 10/03/22 09:37 Ns IVCONT 10/03/22 07:44 Infused .Q1H1M ONE Infusion Insulin Human Lispro 10 unit 10/03/22 06:57 10/03/22 07:06 Insulin Lispro 100 Unit/Ml 3 Ml Vial SUBCUT 10/03/22 06:58 10 unit ONCE ONE Administration Medical Decision Making Medical Decision Making [facility] Narrative: This is a 57 tyce-efp-[id number], with a past medical history of liver cirrhosis secondary to alcohol abuse, diabetes, CAD, hypertension, and history of esophageal varices, who presents to the emergency department via EMS after he was found sleeping in his vehicle on the side of the road. On examination, patient is afebrile, normotensive, 99% on RA. Patient is oriented to self only, unable to get HPI secondary to patient's confusion. Abdomen is distended, without tenderness. Lung CTA. Labs return revealing ammonia 138, glucose 388, Total bili 2.1. Negative ethanol level. Patient medicated with lactulose 30mg TID, 1L IV fluids, and insulin lispro 10 units. UA pending. Case discussed with hospitalist who accepts transfer of care. Differential Diagnosis Differential Diagnoses: The differential diagnosis associated with the presentation includes Hepatic encephalopathy, electrolyte abnormality, etoh intoxication, UTI Admission/Observation Consideration of admission/observation: Escalation of care including admission/observation considered Pt requiring admission for management of hepatic encephalopathy. Consult Healthcare Provider Management of the patient was discussed with: Hospitalist Lab Data [facility] Lab Attestation statement: I reviewed the patient's lab results. 10/03/22 06:08 10/03/22 06:08 Labs: Lab Results 10/03/22 10/03/22 10/03/22 Range/Units 06:08 06:08 06:08 WBC 4.9 (4.8-10.8) X10*3/uL RBC 3.98 L (4.60-5.80) X10*6/uL Hgb 11.5 L (14.0-18.0) g/dl Hct 34.5 L (42.0-52.0) % MCV 86.7 (80.0-98.0) fL MCH 28.9 (27.0-33.0) pg MCHC 33.3 (31.0-36.0) g/dl RDW 18.6 H (11.0-16.0) % Plt Count 106 L D (160-400) X10*3/uL MPV 10.0 (9.4-12.4) fL Immature Gran % (Auto) 0.4 (0.0-0.4) % Neut % (Auto) 65.3 (45-73) % Lymph % (Auto) 15.5 L (20-40) % [place] % (Auto) 12.5 H (2-11) % Eos % (Auto) 5.7 H (0-4) % Baso % (Auto) 0.6 (0-2) % Lymph # (Auto) 0.8 L (1.2-4.9) X10*3/uL [place] # (Auto) 0.6 (0.1-1.2) X10*3/uL Eos # (Auto) 0.3 (0.0-0.4) X10*3/uL Baso # (Auto) 0.0 (0.0-0.2) X10*3/uL Abs Immat Gran (auto) 0.02 (0.00-0.03) X10*3/uL Absolute Neuts (auto) 3.2 (2.0-8.3) x10*3/uL Absolute Nucleated RBC 0.000 (0.0-0.012) X10*3/uL Nucleated RBC % (auto) 0.0 (0.0-0.2) /100WBC Sodium 135 (135-145) mmol/L Potassium 4.5 D (3.3-5.1) mmol/L Chloride 98 (96-108) mmol/L Carbon Dioxide 26 (22-29) mmol/L Anion Gap 16 (12-20) BUN 12 (9-16) mg/dL Creatinine 1.24 (0.5-1.4) mg/dL Estim Creat Clear Calc 56.8 Estimated GFR 60 POC Glucose (60-115) mg/dL Random Glucose 388 H* (60-115) mg/dL Calcium 8.9 D (8.4-10.2) mg/dL Total Bilirubin 2.1 H (0.0-1.0) mg/dL Direct Bilirubin 0.8 H (0.0-0.5) mg/dL AST 69 H (5-37) U/L ALT 36 (0-40) U/L Alkaline Phosphatase 237 H (39-117) U/L Ammonia 138 H (13-55) umol/L Total Protein 8.3 H (6.5-8.0) g/dL Albumin 3.0 L (3.5-5.0) g/dL Ethyl Alcohol < 10 mg/dL 10/03/22 Range/Units 06:14 WBC (4.8-10.8) X10*3/uL RBC (4.60-5.80) X10*6/uL Hgb (14.0-18.0) g/dl Hct (42.0-52.0) % MCV (80.0-98.0) fL MCH (27.0-33.0) pg MCHC (31.0-36.0) g/dl RDW (11.0-16.0) % Plt Count (160-400) X10*3/uL MPV (9.4-12.4) fL Immature Gran % (Auto) (0.0-0.4) % Neut % (Auto) (45-73) % Lymph % (Auto) (20-40) % [place] % (Auto) (2-11) % Eos % (Auto) (0-4) % Baso % (Auto) (0-2) % Lymph # (Auto) (1.2-4.9) X10*3/uL [place] # (Auto) (0.1-1.2) X10*3/uL Eos # (Auto) (0.0-0.4) X10*3/uL Baso # (Auto) (0.0-0.2) X10*3/uL Abs Immat Gran (auto) (0.00-0.03) X10*3/uL Absolute Neuts (auto) (2.0-8.3) x10*3/uL Absolute Nucleated RBC (0.0-0.012) X10*3/uL Nucleated RBC % (auto) (0.0-0.2) /100WBC Sodium (135-145) mmol/L Potassium (3.3-5.1) mmol/L Chloride (96-108) mmol/L Carbon Dioxide (22-29) mmol/L Anion Gap (12-20) BUN (9-16) mg/dL Creatinine (0.5-1.4) mg/dL Estim Creat Clear Calc Estimated GFR POC Glucose 363 H* (60-115) mg/dL Random Glucose (60-115) mg/dL Calcium (8.4-10.2) mg/dL Total Bilirubin (0.0-1.0) mg/dL Direct Bilirubin (0.0-0.5) mg/dL AST (5-37) U/L ALT (0-40) U/L Alkaline Phosphatase (39-117) U/L Ammonia (13-55) umol/L Total Protein (6.5-8.0) g/dL Albumin (3.5-5.0) g/dL Ethyl Alcohol mg/dL Independent Interpretation I performed an independent interpretation of an: EKG Interpretation: Normal sinus rhythm with a ventricular rate 92 BPM, AR interval 146, QTC 477. Vent. Rate : 092 BPM ? ? Atrial Rate : 092 BPM ?? P-R Int : 146 ms? QRS Dur : 078 ms ? ? QT Int : 386 ms ? ? ? P-R-T Axes : 050 032 041 degrees ?? QTc Int : 477 ms ? Normal sinus rhythm Nonspecific ST and T wave abnormality Abnormal ECG When compared with ECG of 08-SEP-2022 21:00, No significant change was found ? Independent Historian Clinical information obtained from an independent historian. History obtained from or confirmed by: EMS External Record Review External record reviewed: Inpatient record, Office record, Outpatient record, Prior outpatient labs, Prior outpatient radiology, Primary care record and Outside ED record Social Determinants Patient?s care significantly limited by Social Determinants of Health including: Alcoholism and drug addiction in family Critical Care Time Critical Care Time Critical Care Time: Yes Total Critical Care Time: 35 Attestation: I have personally provided critical care time exclusive of time spent on separately billable procedures. Time includes review of lab data, radiology results, discussion with consultants, and monitoring for potential decompensation. Intervention performed as documented. Discharge Plan Discharge Clinical Impression: Acute hepatic encephalopathy Patient Disposition: Admitted As Inpatient Interventions: Admission Worksheet (ED) Last Done: 10/03/22 13:39 Discharge Date/Time: 10/03/22 13:40
[2022-10-03 06:55] LABS: Ethanol < 10 mg/dL
[2022-10-03] MEDS: Lactulose 20 GM/30 ML SOLUTION 30 GM PO ×3 (07:04→20:42)
[2022-10-03] MEDS: Insulin Lispro 100 UNIT/ML 3 ML VIAL 10 UNIT SUBCUT (07:06)
[2022-10-03] MEDS: 0.9 % Sodium Chloride 1,000 ML 999 ML IVCONT (07:08)
--- NOTE | 2022-10-03 07:08 | PC.NURSE ---
sleeping and easily woken, medicated as ordered, quickly back to sleep, sr on monitor, nad
--- NOTE | 2022-10-03 07:55 | P.HPHOSP_ITS ---
History of Present Illness Date of Service: 10/03/22 Chief Complaint: ams 57M PMH etoh cirrhosis (decompensated with varices, ascites, encephalopathy, several years sober), HCV s/p treatement DM, CAD(s/p stent) presented with ams. patient was found in his car at side of road, sleeping, confused, oriented to self only, disheveled. was recently discharged from [facility] on 09/12/22 after hospitalization for symptomatic ascites, juan, uti, anemia. patient currently unable to provide history. patient's son reports his father seemed at baseline 2 days ptp, was texting with him and appeared alert and oriented. patient follows with [facility] and is on liver transplant list. in ED ammonia found to be 138. was previously 65. Review of Systems Review of Systems: Yes all other systems are reviewed and are negative [facility] Medical History Abdominal ascites Black stools Chronic hyponatremia Cirrhosis Cirrhosis of liver Diabetes Elevated cholesterol Hepatitis History of alcohol abuse HTN (hypertension) Myocardial infarction Normocytic anemia Varices, esophageal Surgical History H/O colonoscopy History of esophagogastroduodenoscopy (EGD) History of PTCA Hx of hand surgery Social History Household Members: None Housing: Apartment Do you presently have visiting nurse or other home services: No Alcohol intake: never Patient Tobacco Use Status: Former Tobacco user Quit Date: 2013 Tobacco use type: Cigarette Second Hand Smoke Exposure: No Advance Directives: No Advance Directives Information Provided: Yes service: No Current occupational status: employed Meds Allergies Allergy/AdvReac Type Severity Reaction Status Date / Time codeine [CODEINE] Allergy Mild ITCHINESS, Verified 09/08/22 20:47 itching penicillin G Allergy Mild itching Verified 09/08/22 20:47 Active Medications: Current Medications Enoxaparin Sodium (Enoxaparin Sodium 40 Mg/0.4 Ml Syringe) 40 mg SUBCUT Q24H IVELISSE Glucose (Glucose Gel 15 Gm Gel..Gram.) 15 gm PO Q15M PRN; Protocol PRN Reason: per Hypoglycemia Standing Ord. Dextrose (D10) 250 mls @ 750 mls/hr IV Q15M PRN; Protocol PRN Reason: per Hypoglycemia Standing Ord. Insulin Human Lispro (Insulin Lispro 100 Unit/Ml 3 Ml Vial) 0 unit SUBCUT QIDAC [facility]; Protocol Lactulose (Lactulose 20 Gm/30 Ml Solution) 30 gm PO TID [facility] Last Admin: 10/03/22 07:04 Dose: 30 gm Pharmacy Consult (Consult Rx Perform Med Rec) 1 each MISCELLANE ONCE PRN PRN Reason: Consult order Rifaximin (Rifaximin 550 Mg Tablet) 550 mg PO BID [facility] Sodium Chloride (0.9 % Sodium Chloride Flush 3 Ml Syringe) 3 ml IVFLUSH QSHIFT [facility] Home Medications Medication Instructions Recorded Confirmed Last Taken Type atorvastatin 20 mg tablet 20 mg PO DAILY 06/29/20 09/09/22 09/08/22 History omeprazole 20 mg capsule,delayed 20 mg PO DAILY 06/29/20 09/09/22 Unknown History release hydroxyzine HCl 25 mg tablet 25 mg PO TID PRN itch 09/09/22 09/09/22 Unknown History insulin glargine-yfgn 100 unit/mL 45 unit subcut BEDTIME 09/09/22 09/09/22 Unknown History (3 mL) subcutaneous pen (Semglee (insulin glargine-yfgn) Pen) spironolactone 50 mg tablet 50 mg PO BEDTIME 09/09/22 09/09/22 Unknown History trazodone 50 mg tablet 50 mg PO BEDTIME PRN insomnia 09/09/22 09/09/22 Unknown History glipizide 2.5 mg tablet, extended 2.5 mg PO DAILY 10/03/22 Unknown History release 24 hr nadolol 20 mg tablet 20 mg PO DAILY 10/03/22 Unknown History pantoprazole 40 mg tablet,delayed 40 mg PO DAILY 10/03/22 Unknown History release semaglutide 2 mg/dose (8 mg/3 mL) 2 mg subcut QWEEK 10/03/22 Unknown History subcutaneous pen injector (Ozempic) Physical Exam Vital Signs and Narrative: Vital Signs: Last Vital Signs Temp 98.5 F 10/03/22 06:55 Pulse 83 10/03/22 06:55 Resp 17 10/03/22 06:55 BP 111/65 10/03/22 06:55 Pulse Ox 97 10/03/22 06:55 O2 Del Method Room Air 10/03/22 06:55 BMI result Body Mass Index 27.8 General: AO X 1, frial appearing, no acute distress Resp: CTA bilateral, no accessory muscles used CVS: S1,S2,RRR GI: soft, non tender, distended Neuro: asterixis, confused, answering garbage to all questions Results Labs 10/03/22 06:08 10/03/22 06:08 Labs: Laboratory Results - last 24 hr 10/03/22 10/03/22 10/03/22 06:08 06:08 06:08 MCV 86.7 MCH 28.9 MCHC 33.3 RDW 18.6 H Plt Count 106 L D MPV 10.0 Immature Gran % (Auto) 0.4 Neut % (Auto) 65.3 Lymph % (Auto) 15.5 L [place] % (Auto) 12.5 H Eos % (Auto) 5.7 H Baso % (Auto) 0.6 Lymph # (Auto) 0.8 L [place] # (Auto) 0.6 Eos # (Auto) 0.3 Baso # (Auto) 0.0 Abs Immat Gran (auto) 0.02 Absolute Neuts (auto) 3.2 Absolute Nucleated RBC 0.000 Nucleated RBC % (auto) 0.0 Anion Gap 16 Estim Creat Clear Calc 56.8 Estimated GFR 60 POC Glucose Random Glucose 388 H* Calcium 8.9 D Total Bilirubin 2.1 H Direct Bilirubin 0.8 H AST 69 H ALT 36 Alkaline Phosphatase 237 H Ammonia 138 H Total Protein 8.3 H Albumin 3.0 L Ethyl Alcohol < 10 10/03/22 06:14 MCV MCH MCHC RDW Plt Count MPV Immature Gran % (Auto) Neut % (Auto) Lymph % (Auto) [place] % (Auto) Eos % (Auto) Baso % (Auto) Lymph # (Auto) [place] # (Auto) Eos # (Auto) Baso # (Auto) Abs Immat Gran (auto) Absolute Neuts (auto) Absolute Nucleated RBC Nucleated RBC % (auto) Anion Gap Estim Creat Clear Calc Estimated GFR POC Glucose 363 H* Random Glucose Calcium Total Bilirubin Direct Bilirubin AST ALT Alkaline Phosphatase Ammonia Total Protein Albumin Ethyl Alcohol Assessment and Plan (1) Acute hepatic encephalopathy: Status: Acute Plan 57M PMH etoh cirrhosis (decompensated with varices, ascites, encephalopathy, several years sober), HCV s/p treatement DM, CAD(s/p stent) presented with ams. acute metabolic encephalopathy due to hepatic encephaloapthy in decompensation etoh/hcv cirrhosis lactulose, rifaximin etoh/hcv cirrhosis with varices, ascites sober, s/p hcv treatement nadolol, lasix, ppi DM with hyperglycemia basal bolus insulin CAD statin, not on asa due to bleeding risk dvt prophylaxis - lovenox full code patient with significnat encephalaopthy requiring frequent lactulose under close monitoring, likely to require atleast 2 midnights inpatient to achieve significant improvement. Time Spent With Patient Time: Total time managing care of this patient today ____ minutes. Quality Stroke Does the patient have a stroke diagnosis?: No VTE Prior VTE?: No VTE Risk Level:: Medical - moderate - high VTE Device Contraindication: Treatment Not Indicated VTE Drug Contraindication: N/A - Med Ordered
[2022-10-03 08:47] LABS: Glucose, Whole Blood 291 mg/dL (60-115)
--- NOTE | 2022-10-03 09:00 | PHA.MEDREC ---
Pharmacy Consult ? Medication Reconciliation Pharmacy has completed the medication reconciliation. Pt poor historian, replies yes to questions that are not yes or no answers. Pt recently discharged on 09/12; used a combination of discharge summary and claim history from pharmacy
--- NOTE | 2022-10-03 09:25 | MHC.EDTECH ---
Patient from main ED, put into room 4 and new telemetry leads placed. Patient given a pitcher of water and personal hygiene items. Patient verbalized not needing anything else at this time. Advised to use call [facility] if needed. Patient agreed.
[2022-10-03] MEDS: Enoxaparin Sodium 40 MG/0.4 ML SYRINGE SUBCUT (09:28)
[2022-10-03] MEDS: 0.9 % Sodium Chloride Flush 3 ML SYRINGE IVFLUSH ×3 (09:28→20:41)
--- NOTE | 2022-10-03 09:31 | PC.NURSE ---
pharmacy called for rifaxamin
[2022-10-03] MEDS: rifAXIMin 550 MG TABLET PO ×2 (10:01→20:41)
[2022-10-03] MEDS: Insulin Glargine,Hum.rec.anlog 100 UNIT/ML 10 ML VIAL SUBCUT ×2 (10:01→20:41)
--- NOTE | 2022-10-03 10:18 | PC.NURSE ---
patient confused, oriented to self only. needing frequent reminders to stay n bed. [place] catheter in place. daughter at the bedside bed alarm on for safety
[2022-10-03 10:49] LABS: INTERNATIONAL NORM RATIO 1.6 (0.9-1.1); Prothrombin Time 18.2 SEC (10.0-13.1)
[2022-10-03 11:44] LABS: Glucose, Whole Blood 222 mg/dL (60-115)
[2022-10-03] MEDS: Insulin Lispro 100 UNIT/ML 3 ML VIAL SUBCUT ×3 (12:45→20:41)
--- NOTE | 2022-10-03 14:12 | MHC.CM.PN ---
Patient is documented to have s/s of Confusion; CM spoke with Son/HCP/Cristi @ [phone]. Patient lives alone in a house at [address] [place] [address] in [facility] and he required no services nor DME [employer]. Son is requesting a new VNA and is agreeable to a VNA search that accepts Patient's insurance. CM has initiated and will follow for dc planning. Patient has received [facility]/Gaudena vax x2 and his PCP is from [facility].
--- NOTE | 2022-10-03 14:55 | PM.EVENT ---
Event Note Date of Service: 10/03/22 Event Note: GI Consult-Full note dictated-History from RN, EMR, and minimally from the patient. Imp: Hepatic encephalopathy in patient well known to me with underlying cirrhosis from previous EtOH(currently sober) and previous Hep C, s/p successful treatment. He is followed at [facility] as well. His ultrasound is negative for ascites and his abdomen is benign, essentially ruling out SBP. There has been no sign of GI bleeding. Rec: Agree with Lactulose and Xifaxan. Continue PPI, Nadolol, and diuretics. Follow labs. Supportive care. Caution with Lovenox given his elevated INR, low platelets, and underlying cirrhosis. If he does not improve or if things worsen I would recommend reaching out to [facility] about a possible transfer. Thanks Time Spent With Patient Time: Total time managing care of this patient today ____ minutes.
[2022-10-03 16:16] LABS: Glucose, Whole Blood 199 mg/dL (60-115)
[2022-10-03 19:39] LABS: Glucose, Whole Blood 209 mg/dL (60-115)
[2022-10-03] MEDS: Spironolactone 25 MG TABLET 50 MG PO (20:41)
[2022-10-03] MEDS: Ferrous Sulfate 324 MG TABLET.DR PO (20:41)
[2022-10-04 03:32] VITALS: BP 117/65; PULSE 88; RESP 16; TEMP 37; O2SAT 98
[2022-10-04 05:11] LABS: Hematocrit 30.7 % (42.0-52.0); Hemoglobin 10.3 g/dl (14.0-18.0); Mean Corpuscular HGB Conc 33.6 g/dl (31.0-36.0); Mean Corpuscular Hemoglobin 29.2 pg (27.0-33.0); Platelet Count 84 X10*3/uL (160-400); Red Blood Count 3.53 X10*6/uL (4.60-5.80); Red Cell Distribution Width 18.8 % (11.0-16.0); White Blood Count 3.9 X10*3/uL (4.8-10.8)
[2022-10-04 05:21] LABS: Ammonia 67 umol/L (13-55)
[2022-10-04 05:27] LABS: Anion Gap 10 (12-20); Blood Urea Nitrogen 10 mg/dL (9-16); Calcium 8.4 mg/dL (8.4-10.2); Carbon Dioxide 26 mmol/L (22-29); Chloride 107 mmol/L (96-108); Creatinine Clr Calc Pharmacy 65.3; Estimated Glomerular Filt Rate > 60; Glucose Fasting 145 mg/dL (60-99); Magnesium 1.7 mg/dL (1.6-2.6); Potassium 3.3 mmol/L (3.3-5.1); Sodium 140 mmol/L (135-145)
[2022-10-04] MEDS: Omeprazole 20 MG CAPSULE.DR PO (05:47)
[2022-10-04 07:40] VITALS: BP 102/56; PULSE 87; RESP 16; TEMP 36.8; O2SAT 97
[2022-10-04 07:41] LABS: Glucose, Whole Blood 154 mg/dL (60-115)
[2022-10-04] MEDS: nadoloL 20 MG TABLET PO (08:55)
[2022-10-04] MEDS: rifAXIMin 550 MG TABLET PO (08:55)
[2022-10-04] MEDS: Furosemide 20 MG TABLET PO (08:55)
[2022-10-04] MEDS: 0.9 % Sodium Chloride Flush 3 ML SYRINGE IVFLUSH (08:55)
[2022-10-04] MEDS: Insulin Lispro 100 UNIT/ML 3 ML VIAL SUBCUT (08:55)
[2022-10-04] MEDS: Ferrous Sulfate 324 MG TABLET.DR PO (08:56)
[2022-10-04] MEDS: Lactulose 20 GM/30 ML SOLUTION 30 GM PO (08:56)
[2022-10-04] MEDS: Insulin Glargine,Hum.rec.anlog 100 UNIT/ML 10 ML VIAL SUBCUT (08:56)
[2022-10-04] MEDS: Atorvastatin Calcium 20 MG TABLET PO (08:56)
[2022-10-04] MEDS: Enoxaparin Sodium 40 MG/0.4 ML SYRINGE SUBCUT (08:59)
--- NOTE | 2022-10-04 09:43 | PM.DS ---
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 patient was found in his car at side of road, sleeping, confused, oriented to self only, disheveled. was recently discharged from [facility] on 09/12/22 after hospitalization for symptomatic ascites, juan, uti, anemia. patient currently unable to provide history. patient's son reports his father seemed at baseline 2 days ptp, was texting with him and appeared alert and oriented. patient follows with [facility] and is on liver transplant list. in ED ammonia found to be 138. was previously 65. hospital course: Patient was admitted for acute metabolic encephalopathy due to hepatic encephalopathy and decompensation of alcohol/HCV cirrhosis. Patient was given lactulose and rifaximin and returned to baseline mental status faster than expected. Patient is status post HCV treatment and has been sober several years he is in follow-up with [facility] for liver transplant. He was continued on nadolol, Lasix, PPI. He will be discharged on maintenance lactulose and rifaximin. He did not have significant Acites. for diabetes with hyperglycemia he was given basal bolus insulin. For coronary artery disease he was continued on statin, he is not on aspirin due to bleeding risk. Time Spent with Patient Time attestation: Total time managing care of this patient today ____ minutes. Discharge coordination time: Greater than 30 minutes Quality: Safe Use of Opioids Does Pt have an Active Cancer Diagnosis on the Problem List?: No Quality: Stroke Does the patient have a stroke diagnosis?: No Physical Exam Vital Signs: Vital Signs: Last Vital Signs Temp 98.3 F 10/04/22 07:40 Pulse 87 10/04/22 07:40 Resp 16 10/04/22 07:40 BP 102/56 L 10/04/22 07:40 Pulse Ox 97 10/04/22 07:40 O2 Del Method Room Air 10/04/22 07:40 BMI result Body Mass Index 26.3 General: AO X 3, no acute distress, cachexic appearing Resp: CTA bilateral, no accessory muscles used CVS: S1,S2,RRR GI: soft, non tender, non distended Neuro: motor grossly intact, alert Psych: appropriate affect, appropriate insight DS: Data Data Completed and Pending Completed studies during hospitalization [Text1]: Procedures Drainage of Peritoneal Cavity, Percutaneous Approach (09/09/22) Inspection of Upper Intestinal Tract, Via Natural or Artificial Opening Endoscopic (09/09/22) Transfusion of Nonautologous Red Blood Cells into Peripheral Vein, Percutaneous Approach (09/09/22) Labs on day of discharge: Laboratory Results - last 24 hr 10/03/22 10/03/22 10/03/22 10:34 11:40 16:10 WBC RBC Hgb Hct MCV MCH MCHC RDW Plt Count MPV Absolute Nucleated RBC Nucleated RBC % (auto) PT 18.2 H INR 1.6 H Sodium Potassium Chloride Carbon Dioxide Anion Gap BUN Creatinine Estim Creat Clear Calc Estimated GFR POC Glucose 222 H 199 H Fasting Glucose Calcium Magnesium Ammonia 10/03/22 10/04/22 10/04/22 19:33 05:00 05:00 WBC 3.9 L RBC 3.53 L Hgb 10.3 L Hct 30.7 L MCV 87.0 MCH 29.2 MCHC 33.6 RDW 18.8 H Plt Count 84 L MPV 11.0 Absolute Nucleated RBC 0.000 Nucleated RBC % (auto) 0.0 PT INR Sodium 140 Potassium 3.3 D Chloride 107 Carbon Dioxide 26 Anion Gap 10 L BUN 10 Creatinine 0.98 Estim Creat Clear Calc 65.3 Estimated GFR > 60 POC Glucose 209 H Fasting Glucose 145 H Calcium 8.4 Magnesium 1.7 Ammonia 10/04/22 10/04/22 05:00 07:38 WBC RBC Hgb Hct MCV MCH MCHC RDW Plt Count MPV Absolute Nucleated RBC Nucleated RBC % (auto) PT INR Sodium Potassium Chloride Carbon Dioxide Anion Gap BUN Creatinine Estim Creat Clear Calc Estimated GFR POC Glucose 154 H Fasting Glucose Calcium Magnesium Ammonia 67 H Discharge Plan Discharge Anticipated Discharge Date/Time: 10/04/22 09:39 Patient Disposition: Home Health Service Discharge Diagnosis: hepatic encephaloapthy Referrals: Gavin RODRIGUEZ [Outside] - 1 Week Physician,Unknown J [Primary Care Provider] - 1 Week Discharge Medications: New Xifaxan 550 mg Tablet 550 mg PO BID Qty: 60 0RF lactulose 20 gram/30 mL solution 20 g PO BID Qty: 2880 0RF Continued atorvastatin 20 mg tablet 20 mg PO DAILY trazodone 50 mg tablet 50 mg PO BEDTIME PRN (Reason: insomnia) hydroxyzine HCl 25 mg tablet 25 mg PO TID PRN (Reason: itch) spironolactone 50 mg tablet 50 mg PO BEDTIME insulin glargine-yfgn [Semglee(insulin glarg-yfgn)Pen] 100 unit/mL (3 mL) insulin pen 45 unit subcut BID ferrous sulfate 325 mg (65 mg iron) tablet 325 mg PO BID Qty: 60 0RF nadolol 20 mg tablet 20 mg PO DAILY glipizide 2.5 mg tablet extended release 24hr 2.5 mg PO DAILY pantoprazole 40 mg tablet,delayed release (DR/EC) 40 mg PO DAILY@0630 Ozempic 2 mg/dose (8 mg/3 mL) pen injector 2 mg subcut QWEEK furosemide 20 mg tablet 20 mg PO DAILY Discharge Orders: Discharge Order (Routine); Ordered 10/04/22 Ordered By: Tony Phillip Diet: Advance to usual diet Activity on Discharge: As tolerated Stand Alone Forms: Patient Portal Discharge page Care Plan Goals: prevent encephalopathy Health Concerns: hepatic encephalopathy Plan of Treatment: start lactulose - titrate for 2-4bm/day start rifaximin both to help prevent encephalopathy Assessment: see above Discharge Date/Time: 10/04/22 11:34
--- NOTE | 2022-10-04 10:38 | P.F2F_ITS ---
Service Date Service Date: 10/04/22 Encounter Date of encounter: 10/04/22 Reasons for Services Signs and symptoms assessed: encephalolpathy recovering Reason for long-term: medication management, medication treatment and teach disease management Homebound: Leaving the home is medically contraindicated at this time without the asist of a device and/or another person due th the listed conditions above and below. Reason homebound: unsteady gait / fall risk Certification: Based on the above findings, I certify that this patient is confined to the home and needs intermittent long-term care, physical therapy and/or speech therapy, or continues to need occupational therapy. The patient is under my care, and I have initiated the establishment of the plan of care. The patient will be followed by a physician who will periodically review the plan of care. Time Spent With Patient Time: Total time managing care of this patient today ____ minutes.
--- NOTE | 2022-10-04 10:38 | MHC.CM.PN ---
Per MD, Patient is medically cleared for dc to home today with new vna. A referral was made to [facility], who has been notified of today's dc.
--- NOTE | 2022-10-04 11:24 | MHC.CM.PN ---
CM met with Patient and his Ddlwnhql-kn-Msb/HCP/Agatha ([phone]) to address their questions. NAOMI is aware of today's dc.
--- NOTE | 2022-10-04 13:28 | CONS_ITS ---
DATE OF SERVICE: 10/03/2022 REASON FOR CONSULTATION: Cirrhosis, history of ascites, history of esophageal varices, and hepatic encephalopathy. HISTORY OF PRESENT ILLNESS: The patient is a 57-year-old male, well known to me from previous office visits and hospitalizations, who was brought in today due to change in mental status with elevated ammonia level. Patient had been in the hospital earlier this month for problems including increasing ascites and melena. He does have an underlying issue of cirrhosis in relation to previous alcohol abuse with sobriety since 2012, and previous hepatitis C infection successfully treated many years ago was well. He did have a history of variceal bleeding with the most recent banding of the varices in May 2020 and June 2020. He has had significant ascites and edema that has been treated with diuretics and intermittent paracentesis. He has never had spontaneous bacterial peritonitis. He has been followed at [facility]plant clinic with Dr. Jo since 2020 and was seen there earlier this month as well. He does remain listed as a transplant candidate. The most recent visit MELD score was 17. During his recent hospitalization, he did undergo an upper endoscopy by Dr. Miller, on September 10 which revealed nonbleeding varices. He did have a paracentesis during the admission, although specimens were not sent for analysis. Over the past few weeks that he has been at home, he has been on diuretics with improvement in his ascites and he has had no further signs of bleeding. However, he has had confusion and was brought to the ER today after being found asleep in his car.. Since admission to the medical floor, he has had no signs of bleeding. MEDICATIONS: At home include furosemide 40 mg twice a day, aldactone 50 mg b.i.d., atorvastatin, glipizide, omeprazole. He has also been on Nadolol, Ozempic, trazodone, and insulin. Medications here in the hospital include atorvastatin, Lovenox, iron, Lasix, insulin, lactulose, nadolol, omeprazole, rifaximin, spironolactone, and trazodone. PAST MEDICAL HISTORY: Cirrhosis as above in relation to alcohol and previous hepatitis C. History of bleeding varices in the past with subsequent banding. Ascites, diabetes mellitus, hypertension, coronary artery disease with previous [place] and one stent placement in 2017. He has no history of stroke. SOCIAL HISTORY: He is single. He has not been working since his liver disease has been worsening. He does not smoke. He denies using alcohol since 2013. He lives by himself. FAMILY HISTORY: Mom had colon cancer, but there is no family history of liver disease. REVIEW OF SYSTEMS: CONSTITUTIONAL: He has been feeling poorly at home with decreased appetite and confusion. SKIN: No obvious rash. No pruritus. CARDIAC: No chest pain. PULMONARY: No coughing or hemoptysis. GI: As above. URINARY: No dysuria, no hematuria. NEUROLOGIC: No headache or seizures, but he has been confused. PSYCHIATRIC: Negative. PHYSICAL EXAMINATION: GENERAL: The patient is presently alert, but not really oriented to place nor year. He does recognize me but did not remember my name. HEENT: Icteric sclerae. Moist mucous membranes. NECK: Supple without lymphadenopathy. CHEST: Clear. CARDIAC: Normal S1 and S2. ABDOMEN: Soft, nondistended, and nontender. There is no obvious ascites. There is no focal mass, rebound, or guarding. NEUROLOGIC: As above. LABORATORY DATA: He did have an abdominal ultrasound today that was negative for ascites. White blood cell count 4.9, hemoglobin 11.5, MCV 87, platelets 106,000. PT 18.2 with INR 1.6. Sodium 135, potassium 4.5, BUN 12, creatinine 1.2, blood sugar 388, AST 69, ALT 36, alk phos 237, ammonia level 138, albumin 3.0. IMPRESSION: Patient is a 57-year-old male with advanced liver disease presenting with worsening hepatic encephalopathy based on his clinical exam and history. Given the negative ultrasound and benign abdomen, there clearly does not appear to be any component of spontaneous bacterial peritonitis. There does not appear to be any recurrent GI bleeding either. At this point, I would continue supportive care as you are doing with the institution of rifaximin and lactulose. I will continue his diuretics and beta samy as well. I would maintain him on omeprazole and be cautious with the use of Lovenox due to his underlying liver disease, coagulopathy, and relative thrombocytopenia. As long as he is alert and can safely eat, then I would continue him on his diet. I will continue to follow his laboratories and supportive care in general. If things improve and he is stable, then we can continue to manage him here and eventually discharge him for outpatient followup. On the other hand, if problems persist or certainly if they worsen, I would then look into transferring him to [facility] for the liver transplant team to evaluate him in the event they feel he needs more urgent transplant consideration. Thank you for the consultation. MD IMANI Nguyen/MEAGAN / [id number] MTDDon
== END 2022-10-04 11:34 | disposition home health service (06) | DRG 432 ==
LOC: HO.ED 07:28 → HO.EDOVER 08:10 → HO.IMC 12:32
PROVIDERS: Internal Medicine; Physician Assistant Medical; Admitting Provider Internal Medicine; Emergency Provider Internal Medicine; PCP Physician Assistant Medical; Visit Provider Internal Medicine
DX: K70.31 Alcoholic cirrhosis of liver with ascites (principal); G93.41 Metabolic encephalopathy; I85.10 Secondary esophageal varices without bleeding; E78.00 Pure hypercholesterolemia, unspecified; I25.2 Old myocardial infarction; I25.10 Atherosclerotic heart disease of native coronary artery without angina pectoris; Z95.5 Presence of coronary angioplasty implant and graft; K76.82 Hepatic encephalopathy; E11.65 Type 2 diabetes mellitus with hyperglycemia; Z86.19 Personal history of other infectious and parasitic diseases; F10.11 Alcohol abuse, in remission; Z79.84 Long term (current) use of oral hypoglycemic drugs; Z79.899 Other long term (current) drug therapy
CPT/HCPCS: 36415; 76705; 80048; 80076; 82077; 82140; 82947; 83735; 85025; 85027; 85610; 93005; 99222; 99285; J1650

== ENCOUNTER 2022-10-11 12:33 | Outpatient (REF) | payer OTHER, SELFPAY ==
[2022-10-11 12:48] LABS: MANUAL DIFF FLAG NO
[2022-10-11 12:59] LABS: Ammonia 89 umol/L (13-55)
[2022-10-11 14:21] LABS: Basophils Absolute Auto 0.1 X10*3/uL (0.0-0.2); Basophils Percent Auto 1.2 % (0-2); Eosinophils Absolute Auto 0.3 X10*3/uL (0.0-0.4); Eosinophils Percent Auto 5.4 % (0-4); Hematocrit 38.9 % (42.0-52.0); Hemoglobin 13.1 g/dl (14.0-18.0); Imm Gran Abs Auto 0.02 X10*3/uL (0.00-0.03); Imm Gran Pct Auto 0.3 % (0.0-0.4); Lymphocytes Absolute Auto 0.9 X10*3/uL (1.2-4.9); Mean Corpuscular HGB Conc 33.7 g/dl (31.0-36.0); Mean Corpuscular Hemoglobin 28.7 pg (27.0-33.0); Mean Corpuscular Volume 85.1 fL (80.0-98.0); Mean Platelet Volume 11.1 fL (9.4-12.4); Monocytes Absolute Auto 0.6 X10*3/uL (0.1-1.2); Monocytes Percent Auto 10.1 % (2-11); Neutrophils Absolute Auto 3.9 x10*3/uL (2.0-8.3); Platelet Count 122 X10*3/uL (160-400); Red Blood Count 4.57 X10*6/uL (4.60-5.80); Red Cell Distribution Width 17.5 % (11.0-16.0); White Blood Count 5.8 X10*3/uL (4.8-10.8)
[2022-10-11 15:40] LABS: Alanine Aminotransferase 36 U/L (0-40); Alkaline Phosphatase 231 U/L (39-117); Anion Gap 12 (12-20); Aspartate Amino Transferase 64 U/L (5-37); Bilirubin Direct 0.8 mg/dL (0.0-0.5); Bilirubin Total 1.9 mg/dL (0.0-1.0); Blood Urea Nitrogen 15 mg/dL (9-16); Carbon Dioxide 32 mmol/L (22-29); Chloride 92 mmol/L (96-108); Estimated Glomerular Filt Rate 48; Potassium 3.4 mmol/L (3.3-5.1); Sodium 133 mmol/L (135-145); Total Protein 8.2 g/dL (6.5-8.0)
== END 2022-10-11 12:34 | disposition home or self-care (01) ==
LOC: HO.LAB 12:33
PROVIDERS: PCP Physician Assistant Medical; Visit Provider Internal Medicine
DX: K70.31 Alcoholic cirrhosis of liver with ascites (principal); K76.82 Hepatic encephalopathy
CPT/HCPCS: 36415; 80051; 80076; 82140; 82565; 84520; 85025

== ENCOUNTER 2022-10-12 17:06 | Emergency (ER) | payer OTHER, MEDICAID, SELFPAY ==
[2022-10-12 17:11] VITALS: BP 124/71; PULSE 77; RESP 16; TEMP 36.2; O2SAT 99; BMI 23.7
--- NOTE | 2022-10-12 17:27 | ECG_ITS ---
Test Reason : ALTER MENTAL STATUS Blood Pressure : / mmHG Vent. Rate : 079 BPM Atrial Rate : 079 BPM P-R Int : 150 ms QRS Dur : 086 ms QT Int : 400 ms P-R-T Axes : 050 037 028 degrees QTc Int : 458 ms Normal sinus rhythm Normal ECG When compared with ECG of 03-OCT-2022 05:58, Nonspecific T wave abnormality no longer evident in Anterior leads Referred By: Sendy Pitt Electronically Signed By:CYNTHIA SANCHEZ MD
[2022-10-12 18:16] LABS: MANUAL DIFF FLAG NO
[2022-10-12 18:17] LABS: Imm Gran Abs Auto 0.02 X10*3/uL (0.00-0.03); Imm Gran Pct Auto 0.3 % (0.0-0.4); Mean Corpuscular HGB Conc 34.7 g/dl (31.0-36.0); Mean Corpuscular Hemoglobin 29.1 pg (27.0-33.0); PLT CLUMP 1; SCAN SMEAR FLAG 1
[2022-10-12 18:19] LABS: Basophils Absolute Auto 0.1 X10*3/uL (0.0-0.2); Basophils Percent Auto 0.8 % (0-2); Eosinophils Absolute Auto 0.2 X10*3/uL (0.0-0.4); Eosinophils Percent Auto 2.6 % (0-4); Hematocrit 37.5 % (42.0-52.0); Lymphocytes Absolute Auto 0.9 X10*3/uL (1.2-4.9); Mean Corpuscular Volume 84.1 fL (80.0-98.0); Mean Platelet Volume 10.8 fL (9.4-12.4); Monocytes Absolute Auto 0.6 X10*3/uL (0.1-1.2); Monocytes Percent Auto 10.3 % (2-11); Neutrophils Absolute Auto 4.4 x10*3/uL (2.0-8.3); Red Blood Count 4.46 X10*6/uL (4.60-5.80); Red Cell Distribution Width 17.2 % (11.0-16.0)
[2022-10-12 18:21] LABS: PLT ABN DIST 1; White Blood Count 6.1 X10*3/uL (4.8-10.8)
[2022-10-12 18:22] LABS: Platelet Count 103 X10*3/uL (160-400)
[2022-10-12 18:24] LABS: INTERNATIONAL NORM RATIO 1.4 (0.9-1.1); Prothrombin Time 16.5 SEC (10.0-13.1)
[2022-10-12 18:42] LABS: Alanine Aminotransferase 36 U/L (0-40); Albumin Level 2.9 g/dL (3.5-5.0); Alkaline Phosphatase 229 U/L (39-117); Anion Gap 13 (12-20); Aspartate Amino Transferase 72 U/L (5-37); Bilirubin Direct 0.9 mg/dL (0.0-0.5); Bilirubin Total 2.4 mg/dL (0.0-1.0); Blood Urea Nitrogen 18 mg/dL (9-16); Calcium 9.1 mg/dL (8.4-10.2); Carbon Dioxide 28 mmol/L (22-29); Chloride 95 mmol/L (96-108); Creatinine Clr Calc Pharmacy 46.9; Estimated Glomerular Filt Rate 51; Glucose Random 172 mg/dL (60-115); Lipase 42 U/L (8-78); Magnesium 1.8 mg/dL (1.6-2.6); Potassium 3.4 mmol/L (3.3-5.1); Sodium 133 mmol/L (135-145); Total Protein 7.9 g/dL (6.5-8.0)
[2022-10-12 18:47] LABS: B Type Natriuretic Peptide 20 pg/mL (<100)
[2022-10-12 18:48] LABS: Ammonia 74 umol/L (13-55)
[2022-10-12 18:50] LABS: Troponin-I High Sensitivity < 2.7 ng/L (<3.5-35.0)
--- NOTE | 2022-10-12 19:35 | ED_ITS ---
HPI - General Adult General Chief complaint: General Medical Stated complaint: liver failure, forgetful Time Seen by Provider: 10/12/22 18:55 Source: patient and family (Daughter) Mode of arrival: ambulatory History of Present Illness HPI narrative: This is a 57-year-old male who is brought in by his daughter for mild confusion and this has led to poor medication compliance, he was evaluated yesterday as well and noted that the ammonia was elevated, he has not taken sufficient lactulose today but otherwise has no acute complaints such as fever, chills, nausea, vomiting, GI or symptoms. Related Data Home Medications Medication Instructions Recorded Confirmed atorvastatin 20 mg tablet 20 mg PO DAILY 06/29/20 10/03/22 hydroxyzine HCl 25 mg tablet 25 mg PO TID PRN itch 09/09/22 10/03/22 insulin glargine-yfgn 100 unit/mL 45 unit subcut BID 09/09/22 10/03/22 (3 mL) subcutaneous pen (Semglee (insulin glargine-yfgn) Pen) spironolactone 50 mg tablet 50 mg PO BEDTIME 09/09/22 10/03/22 trazodone 50 mg tablet 50 mg PO BEDTIME PRN insomnia 09/09/22 10/03/22 furosemide 20 mg tablet 20 mg PO DAILY 10/03/22 10/03/22 glipizide 2.5 mg tablet, extended 2.5 mg PO DAILY 10/03/22 10/03/22 release 24 hr nadolol 20 mg tablet 20 mg PO DAILY 10/03/22 10/03/22 pantoprazole 40 mg tablet,delayed 40 mg PO DAILY@0630 10/03/22 10/03/22 release semaglutide 2 mg/dose (8 mg/3 mL) 2 mg subcut QWEEK 10/03/22 subcutaneous pen injector (Ozempic) Previous Rx's Medication Instructions Recorded ferrous sulfate 325 mg (65 mg 325 mg PO BID #60 tabs 09/12/22 iron) tablet lactulose 20 gram/30 mL oral 20 g (30 mL) PO BID #2,880 mL 10/04/22 solution rifaximin 550 mg tablet (Xifaxan) 550 mg PO BID #60 tabs 10/04/22 Allergies Allergy/AdvReac Type Severity Reaction Status Date / Time codeine [CODEINE] Allergy Mild ITCHINESS, Verified 09/08/22 20:47 itching penicillin G Allergy Mild itching Verified 09/08/22 20:47 Review of Systems Review of Systems: Pertinent positives and negatives as stated in [facility] Past Medical History Source: nursing notes reviewed Medical History Abdominal ascites Black stools Chronic hyponatremia Cirrhosis Cirrhosis of liver Diabetes Elevated cholesterol Hepatitis History of alcohol abuse HTN (hypertension) Myocardial infarction Normocytic anemia Varices, esophageal Surgical History H/O colonoscopy History of esophagogastroduodenoscopy (EGD) History of PTCA Hx of hand surgery Social History Social History Household Members: None Housing: Apartment Do you presently have visiting nurse or other home services: No Unable to assess alcohol history related to: Unable to respond Alcohol intake: former Patient Tobacco Use Status: Former Tobacco user Quit Date: 2013 Tobacco use type: Cigarette Smoked in Last 30 Days: No Second Hand Smoke Exposure: No Advance Directives: No Advance Directives Information Provided: No service: Yes Current occupational status: employed Physical Exam ED Vital Signs: Vital Signs - 24 hr 10/12/22 17:11 10/12/22 20:26 Temperature 97.1 F 97.7 F Pulse Rate 77 78 Respiratory Rate 16 13 Blood Pressure 124/71 117/72 Pulse Oximetry 99 100 Oxygen Delivery Method Room Air Room Air BMI result Body Mass Index 23.7 VITAL SIGNS: Reviewed. GENERAL: Well developed, well nourished, in no acute distress. HEAD: Normocephalic/atraumatic EYES: PERRLA, EOMI EARS: Ext canals without abnormality LUNGS: Normal breath sounds. No adventitious sounds or accessory muscle use. SpO2<100> CARDIOVASCULAR: Regular rate and rhythm without noted murmurs, no JVD or lower extremity edema. ABDOMEN: Soft, non-tender, non-distended with bowel sounds. MUSCULOSKELETAL: No tenderness, deformities, or effusions noted on gross inspection. EXTREMITIES: No cyanosis, clubbing or edema. SKIN: Inspection of the skin reveals no rashes NEUROLOGIC: Alert and oriented x 3. Strength and sensation to light touch were grossly intact x 4. Medications Administered Discontinued Medications Generic Name Dose Route Start Last Admin Trade Name Van PRN Reason Stop Dose Admin Lactulose 30 gm 10/12/22 19:32 10/12/22 20:06 Lactulose 20 Gm/30 Ml Solution PO 10/12/22 19:33 30 gm ONCE ONE Administration Medical Decision Making Medical Decision Making [facility] Narrative: 57-year-old male with history and clinical presentation consistent with poor medication compliance which has led to a significant decrease in bowel movements and led to the elevation of his ammonia. He is mildly confused, he will receive 30g of lactulose here in the emergency room, he does not need to stay here. Of note it does appear that he had an episode of low sugar level just before noon time today which likely contributed to the observed confusion. I constructed an alternative plan with the daughter as well as the patient and patient will be instructed to increase the use of lactulose to 3 times a day and only. If he develops uncontrolled diarrhea. In addition, due to the low sugar levels and patient complaints that he has had some decrease in appetite will lower the nighttime insulin to 50 units from 75 units. Differential Diagnosis Please see the discussion above Lab Data Please see the discussion above 10/12/22 18:09 10/12/22 18:09 Labs: Lab Results 10/12/22 10/12/22 10/12/22 Range/Units 18:09 18:09 18:09 WBC 6.1 (4.8-10.8) X10*3/uL RBC 4.46 L (4.60-5.80) X10*6/uL Hgb 13.0 L (14.0-18.0) g/dl Hct 37.5 L (42.0-52.0) % MCV 84.1 (80.0-98.0) fL MCH 29.1 (27.0-33.0) pg MCHC 34.7 (31.0-36.0) g/dl RDW 17.2 H (11.0-16.0) % Plt Count 103 L (160-400) X10*3/uL MPV 10.8 (9.4-12.4) fL Immature Gran % (Auto) 0.3 (0.0-0.4) % Neut % (Auto) 72.0 (45-73) % Lymph % (Auto) 14.0 L (20-40) % [place] % (Auto) 10.3 (2-11) % Eos % (Auto) 2.6 (0-4) % Baso % (Auto) 0.8 (0-2) % Lymph # (Auto) 0.9 L (1.2-4.9) X10*3/uL [place] # (Auto) 0.6 (0.1-1.2) X10*3/uL Eos # (Auto) 0.2 (0.0-0.4) X10*3/uL Baso # (Auto) 0.1 (0.0-0.2) X10*3/uL Abs Immat Gran (auto) 0.02 (0.00-0.03) X10*3/uL Absolute Neuts (auto) 4.4 (2.0-8.3) x10*3/uL Absolute Nucleated RBC 0.000 (0.0-0.012) X10*3/uL Nucleated RBC % (auto) 0.0 (0.0-0.2) /100WBC PT (10.0-13.1) SEC INR (0.9-1.1) Sodium 133 L (135-145) mmol/L Potassium 3.4 (3.3-5.1) mmol/L Chloride 95 L (96-108) mmol/L Carbon Dioxide 28 (22-29) mmol/L Anion Gap 13 (12-20) BUN 18 H (9-16) mg/dL Creatinine 1.42 H (0.5-1.4) mg/dL Estim Creat Clear Calc 46.9 Estimated GFR 51 Random Glucose 172 H (60-115) mg/dL Calcium 9.1 D (8.4-10.2) mg/dL Magnesium 1.8 (1.6-2.6) mg/dL Total Bilirubin 2.4 H (0.0-1.0) mg/dL Direct Bilirubin 0.9 H (0.0-0.5) mg/dL AST 72 H (5-37) U/L ALT 36 (0-40) U/L Alkaline Phosphatase 229 H (39-117) U/L Ammonia (13-55) umol/L Troponin I High Sens < 2.7 (<3.5-35.0) ng/L B-Natriuretic Peptide (<100) pg/mL Total Protein 7.9 (6.5-8.0) g/dL Albumin 2.9 L (3.5-5.0) g/dL Lipase 42 (8-78) U/L 10/12/22 10/12/22 10/12/22 Range/Units 18:09 18:09 18:09 WBC (4.8-10.8) X10*3/uL RBC (4.60-5.80) X10*6/uL Hgb (14.0-18.0) g/dl Hct (42.0-52.0) % MCV (80.0-98.0) fL MCH (27.0-33.0) pg MCHC (31.0-36.0) g/dl RDW (11.0-16.0) % Plt Count (160-400) X10*3/uL MPV (9.4-12.4) fL Immature Gran % (Auto) (0.0-0.4) % Neut % (Auto) (45-73) % Lymph % (Auto) (20-40) % [place] % (Auto) (2-11) % Eos % (Auto) (0-4) % Baso % (Auto) (0-2) % Lymph # (Auto) (1.2-4.9) X10*3/uL [place] # (Auto) (0.1-1.2) X10*3/uL Eos # (Auto) (0.0-0.4) X10*3/uL Baso # (Auto) (0.0-0.2) X10*3/uL Abs Immat Gran (auto) (0.00-0.03) X10*3/uL Absolute Neuts (auto) (2.0-8.3) x10*3/uL Absolute Nucleated RBC (0.0-0.012) X10*3/uL Nucleated RBC % (auto) (0.0-0.2) /100WBC PT 16.5 H (10.0-13.1) SEC INR 1.4 H (0.9-1.1) Sodium (135-145) mmol/L Potassium (3.3-5.1) mmol/L Chloride (96-108) mmol/L Carbon Dioxide (22-29) mmol/L Anion Gap (12-20) BUN (9-16) mg/dL Creatinine (0.5-1.4) mg/dL Estim Creat Clear Calc Estimated GFR Random Glucose (60-115) mg/dL Calcium (8.4-10.2) mg/dL Magnesium (1.6-2.6) mg/dL Total Bilirubin (0.0-1.0) mg/dL Direct Bilirubin (0.0-0.5) mg/dL AST (5-37) U/L ALT (0-40) U/L Alkaline Phosphatase (39-117) U/L Ammonia 74 H (13-55) umol/L Troponin I High Sens (<3.5-35.0) ng/L B-Natriuretic Peptide 20 (<100) pg/mL Total Protein (6.5-8.0) g/dL Albumin (3.5-5.0) g/dL Lipase (8-78) U/L Independent Interpretation I performed an independent interpretation of an: EKG Interpretation: Normal sinus rhythm, HR-79, no STEMI, LA/QRS/QTC is within normal limits. External Record Review External record reviewed: Inpatient record, Outpatient record and Prior outpat ient labs Chronic Conditions Patient?s care impacted by: Diabetes Discharge Plan Discharge Clinical Impression: Increased ammonia level, Confusion Patient Disposition: Home, Self-Care Instructions: Lactulose (By mouth), Cirrhosis (ED) Additional Instructions: 1. Resume all home medications with the following exceptions: - INCREASE LACTULOSE TO 3 TIMES A DAY (STOP THIS MEDICATION IF PERSISTENT DIARRHEA OCCURS) - DECREASED NIGHTTIME INSULIN TO 50 UNITS FROM 75 UNITS. IF YOU ARE NOT HUNGRY CONSIDER ENSURE FOR DIABETICS 2. FOLLOW-UP WITH YOUR SWIMMING POOL PLASTERER HELPER WELL YOUR PRIMARY CARE PROVIDER SCHEDULED. Return to the ER for any worsening symptoms. Prescriptions: No Action atorvastatin 20 mg tablet 20 mg PO DAILY trazodone 50 mg tablet 50 mg PO BEDTIME PRN (Reason: insomnia) hydroxyzine HCl 25 mg tablet 25 mg PO TID PRN (Reason: itch) spironolactone 50 mg tablet 50 mg PO BEDTIME insulin glargine-yfgn [Semglee(insulin glarg-yfgn)Pen] 100 unit/mL (3 mL) insulin pen 45 unit subcut BID ferrous sulfate 325 mg (65 mg iron) tablet 325 mg PO BID Qty: 60 0RF nadolol 20 mg tablet 20 mg PO DAILY glipizide 2.5 mg tablet extended release 24hr 2.5 mg PO DAILY pantoprazole 40 mg tablet,delayed release (DR/EC) 40 mg PO DAILY@0630 Ozempic 2 mg/dose (8 mg/3 mL) pen injector 2 mg subcut QWEEK furosemide 20 mg tablet 20 mg PO DAILY Xifaxan 550 mg Tablet 550 mg PO BID Qty: 60 0RF lactulose 20 gram/30 mL solution 20 g PO BID Qty: 2880 0RF Referrals: Dony Morgan PA [Primary Care Provider] -
[2022-10-12] MEDS: Lactulose 20 GM/30 ML SOLUTION 30 GM PO (20:06)
[2022-10-12 20:26] VITALS: BP 117/72; PULSE 78; RESP 13; TEMP 36.5; O2SAT 100
[2022-10-12 20:39] LABS: Appearance Urine Clear; Color Urine Yellow; Glucose Urine UA Negative (Negative); Leukocyte Esterase Urine Negative (Negative); Nitrite Urine Negative (Negative); PH 5.5 (5.0-9.0); Specific Gravity - Urine 1.015 (1.005-1.025); Urine Blood Negative (Negative); Urine Ketones Negative (Negative); Urine Protein Trace mg/dL (Neg-Trace)
== END 2022-10-12 20:58 | disposition home or self-care (01) ==
PROVIDERS: Physician Assistant; Emergency Provider Student in an Organized Health Care Education/Training Program; PCP Physician Assistant Medical
DX: R41.0 Disorientation, unspecified (principal); E72.20 Disorder of urea cycle metabolism, unspecified; K74.60 Unspecified cirrhosis of liver; E11.9 Type 2 diabetes mellitus without complications; E78.5 Hyperlipidemia, unspecified; I10 Essential (primary) hypertension; B19.20 Unspecified viral hepatitis C without hepatic coma; F10.10 Alcohol abuse, uncomplicated; Z91.141 Patient's other noncompliance with medication regimen due to financial hardship; Z79.02 Long term (current) use of antithrombotics/antiplatelets; Z79.899 Other long term (current) drug therapy; Z79.4 Long term (current) use of insulin
CPT/HCPCS: 36415; 80048; 80076; 81003; 82140; 83690; 83735; 83880; 84484; 85025; 85610; 93005; 99283; 99284

== ENCOUNTER 2022-10-18 20:54 | Inpatient (IN) | payer OTHER, MEDICAID, SELFPAY ==
--- NOTE | 2022-10-18 | ECG_ITS ---
Test Reason : ALTERED MENTAL STATUS Blood Pressure : / mmHG Vent. Rate : 081 BPM Atrial Rate : 081 BPM P-R Int : 154 ms QRS Dur : 084 ms QT Int : 418 ms P-R-T Axes : 030 014 020 degrees QTc Int : 485 ms Normal sinus rhythm Prolonged QT Abnormal ECG When compared with ECG of 12-OCT-2022 17:33, No significant change was found Referred By: Kaila Garcia Electronically Signed By:JIE JOSÉ
--- NOTE | ~2022-10-18 | CT_ITS ---
EXAMINATION: CT head/brain wo IV con CLINICAL INFORMATION: ams COMPARISON: None. TECHNIQUE: Contiguous axial imaging was performed from the skull base to vertex without intravenous contrast. Sagittal and coronal reformatted images were obtained. This CT examination was performed using dose optimization techniques as appropriate, variously including the following: * Automated exposure control * Adjustment of mA and/or kV according to patient size (this includes techniques or standardized protocols for targeted exams where dose is matched to indication/reason for exam; i.e. extremities or head) Use of iterative reconstruction technique DLP: 645 mGy-cm FINDINGS: The ventricles and sulci are normal in size and configuration without significant volume loss or hydrocephalus. There is no abnormal attenuation within the brain parenchyma. No territorial loss of weeks-white differentiation. No acute intracranial hemorrhage or extra-axial fluid collection. No mass lesion, significant mass effect, or herniation pattern. Calcific atherosclerotic disease of the carotid siphons. The orbits are grossly normal. Partially imaged subtotal opacification of the left maxillary sinus with hyperdensity which may reflect chronic inspissated/proteinaceous contents or chronic fungal elements with osteitis on the basis of chronicity. Osseous structures are intact. CT/CT head/brain wo IV con IMPRESSION: 1. No acute intracranial abnormality. Specifically, no CT evidence of acute intracranial hemorrhage, significant mass effect, hydrocephalus, or large territorial infarction. 2. Partially imaged subtotal opacification of the left maxillary sinus with hyperdensity which may reflect chronic inspissated/proteinaceous contents or chronic fungal elements with osteitis on the basis of chronicity. Likely opacified left maxillary sinus ostium/infundibulum, partially imaged. Correlate clinically for signs of superimposed acute sinusitis.
--- NOTE | ~2022-10-18 | US_ITS ---
EXAMINATION: US ABDOMEN LIMITED CLINICAL INFORMATION: Ascites. COMPARISON: 10/03/2022 TECHNIQUE: Real-time imaging of the abdomen to assess for ascites. FINDINGS: Small amount of free fluid is noted in the right upper and lower quadrants. No free fluid seen along the midline or in the left upper or lower quadrants. US/US abdomen limited IMPRESSION: Small amount of ascites in the right abdomen.
--- NOTE | ~2022-10-18 | CT_ITS ---
EXAMINATION: CT HEAD WITHOUT CONTRAST CLINICAL INFORMATION: Fall. COMPARISON: CT dated 10/18/2022. TECHNIQUE: Contiguous axial imaging was performed from the skullbase to vertex without intravenous administration of contrast. Limited study with motion artifacts. This CT examination was performed using dose optimization techniques as appropriate, variously including the following: *Automated exposure control *Adjustment of mA and/or kV according to patient size (this includes techniques or standardized protocols for targeted exams where dose is matched to indication/reason for exam; i.e. extremities or head) *Use of iterative reconstruction technique DLP: 860 mGy-cm. FINDINGS: There is no evidence of acute intracranial hemorrhage or territorial infarction. No abnormal mass effect or midline shift is seen. Lora to white matter differentiation is well preserved. No extra-axial fluid collections are identified. The ventricles are normal in size. There is no abnormal attenuation within the brain parenchyma. The osseous structures and soft tissues are normal. The mastoid air cells are well aerated. Partially visualized is significant left maxillary sinus mucosal thickening again noted. CT/CT head/brain wo IV con IMPRESSION: No acute intracranial pathology. Significant left maxillary sinus disease, better seen on recent prior imaging.
[2022-10-18 21:07] VITALS: BP 136/69; PULSE 78; RESP 18; TEMP 36.4; O2SAT 99; BMI 21.9
[2022-10-18 21:40] LABS: MANUAL DIFF FLAG NO
[2022-10-18 21:41] LABS: Basophils Percent Auto 0.7 % (0-2); Eosinophils Absolute Auto 0.3 X10*3/uL (0.0-0.4); Eosinophils Percent Auto 5.7 % (0-4); Hematocrit 31.4 % (42.0-52.0); Hemoglobin 11.1 g/dl (14.0-18.0); Imm Gran Abs Auto 0.01 X10*3/uL (0.00-0.03); Imm Gran Pct Auto 0.2 % (0.0-0.4); Lymphocytes Absolute Auto 0.7 X10*3/uL (1.2-4.9); Lymphocytes Percent Auto 15.2 % (20-40); Mean Corpuscular HGB Conc 35.4 g/dl (31.0-36.0); Mean Corpuscular Hemoglobin 29.3 pg (27.0-33.0); Mean Corpuscular Volume 82.8 fL (80.0-98.0); Mean Platelet Volume 10.7 fL (9.4-12.4); Monocytes Absolute Auto 0.6 X10*3/uL (0.1-1.2); Monocytes Percent Auto 13.5 % (2-11); Neutrophils Percent Auto 64.7 % (45-73); Red Blood Count 3.79 X10*6/uL (4.60-5.80); Red Cell Distribution Width 16.9 % (11.0-16.0); White Blood Count 4.6 X10*3/uL (4.8-10.8)
[2022-10-18 21:48] LABS: Platelet Count 68 X10*3/uL (160-400)
[2022-10-18 22:09] LABS: Alanine Aminotransferase 47 U/L (0-40); Albumin Level 2.8 g/dL (3.5-5.0); Alkaline Phosphatase 253 U/L (39-117); Anion Gap 10 (12-20); Aspartate Amino Transferase 81 U/L (5-37); Bilirubin Direct 0.7 mg/dL (0.0-0.5); Bilirubin Total 1.7 mg/dL (0.0-1.0); Blood Urea Nitrogen 14 mg/dL (9-16); Calcium 8.7 mg/dL (8.4-10.2); Carbon Dioxide 27 mmol/L (22-29); Chloride 100 mmol/L (96-108); Creatinine Clr Calc Pharmacy 50.3; Estimated Glomerular Filt Rate 51; Glucose Random 354 mg/dL (60-115); Lipase 59 U/L (8-78); Potassium 3.4 mmol/L (3.3-5.1); Sodium 134 mmol/L (135-145); Total Protein 7.2 g/dL (6.5-8.0)
[2022-10-18 22:14] VITALS: BP 140/80; PULSE 95; RESP 10; TEMP 36.6; O2SAT 100
--- NOTE | 2022-10-18 22:30 | ED.AMS ---
HPI - Altered Mental Status General Chief Complaint: Altered Mental Status Stated Complaint: Disorientation , not making sense Time Seen by Provider: 10/18/22 21:59 History of Present Illness HPI narrative: Patient is a 57 old male with a history of diabetes, liver failure currently on the transplant list. Previous history of alcohol abuse. History of hepatic encephalopathy. Baseline is on lactulose 30 g 3 times a day. Recently discharged from [facility] proximally 3-4 days ago for the same. Since approximately 18:00 tonight patient became very somnolent. Not answering questions appropriately no fever no chills. Patient is from home. Family denies any specific trauma. Related Data Home Medications Medication Instructions Recorded Confirmed atorvastatin 20 mg tablet 20 mg PO DAILY 06/29/20 10/03/22 hydroxyzine HCl 25 mg tablet 25 mg PO TID PRN itch 09/09/22 10/03/22 insulin glargine-yfgn 100 unit/mL 45 unit subcut BID 09/09/22 10/03/22 (3 mL) subcutaneous pen (Semglee (insulin glargine-yfgn) Pen) spironolactone 50 mg tablet 50 mg PO BEDTIME 09/09/22 10/03/22 trazodone 50 mg tablet 50 mg PO BEDTIME PRN insomnia 09/09/22 10/03/22 furosemide 20 mg tablet 20 mg PO DAILY 10/03/22 10/03/22 glipizide 2.5 mg tablet, extended 2.5 mg PO DAILY 10/03/22 10/03/22 release 24 hr nadolol 20 mg tablet 20 mg PO DAILY 10/03/22 10/03/22 pantoprazole 40 mg tablet,delayed 40 mg PO DAILY@0630 10/03/22 10/03/22 release semaglutide 2 mg/dose (8 mg/3 mL) 2 mg subcut QWEEK 10/03/22 subcutaneous pen injector (Ozempic) Previous Rx's Medication Instructions Recorded ferrous sulfate 325 mg (65 mg 325 mg PO BID #60 tabs 09/12/22 iron) tablet lactulose 20 gram/30 mL oral 20 g (30 mL) PO BID #2,880 mL 10/04/22 solution rifaximin 550 mg tablet (Xifaxan) 550 mg PO BID #60 tabs 10/04/22 Allergies Allergy/AdvReac Type Severity Reaction Status Date / Time codeine [CODEINE] Allergy Mild ITCHINESS, Verified 10/18/22 21:13 itching penicillin G Allergy Mild itching Verified 10/18/22 21:13 Review of Systems Review of Systems: Unable to obtain full review system [facility] Past Medical History Attestation statement: The following information was validated with the patient. Medical History Abdominal ascites Black stools Chronic hyponatremia Cirrhosis Cirrhosis of liver Diabetes Elevated cholesterol Hepatitis History of alcohol abuse HTN (hypertension) Myocardial infarction Normocytic anemia Varices, esophageal Surgical History H/O colonoscopy History of esophagogastroduodenoscopy (EGD) History of PTCA Hx of hand surgery Social History Social History Household Members: None Housing: Apartment Do you presently have visiting nurse or other home services: No Unable to assess alcohol history related to: Unable to respond Alcohol intake: former Patient Tobacco Use Status: Former Tobacco user Quit Date: 2013 Tobacco use type: Cigarette Smoked in Last 30 Days: No Second Hand Smoke Exposure: No Use of substances other than those prescribed or required for medical reasons: No Advance Directives: No Advance Directives Information Provided: Yes service: Yes Current occupational status: employed Physical Exam ED Vital Signs: Vital Signs - 24 hr 10/18/22 21:07 10/18/22 22:14 Temperature 97.6 F 97.9 F Pulse Rate 78 95 Respiratory Rate 18 10 L Blood Pressure 136/69 140/80 H Pulse Oximetry 99 100 Oxygen Delivery Method Room Air Room Air BMI result Body Mass Index 21.9 Appearance: Lethargic, Oriented times 0. No acute distress. Eyes: Pupils equal, round and reactive to light. ENT: Pharynx normal. Neck: Normal inspection. Neck supple. No lymph nodes noted. No crepitus CVS: Normal heart rate and rhythm. Pulses normal. Normal S1 and S2 Respiratory: No respiratory distress. Breath sounds normal. No Wheezing. No rales Abdomen: Soft and nontender. No rigidity. No distention. good BS x4 Skin: Skin warm and dry. Normal skin color. Normal skin turgor. Extremities: No lower extremity edema. Neurovascular intact to all extremities. No Lacerations. No Rash Neuro: Oriented x 0. No motor deficit. No sensory deficit. Moving all extermities. No slurred speech Medications Administered Discontinued Medications Generic Name Dose Route Start Last Admin Trade Name Van PRN Reason Stop Dose Admin Sodium Chloride 500 mls @ 999 mls/hr 10/18/22 22:30 10/19/22 00:10 Ns IV 10/18/22 23:00 Infused .Q31M IVELISSE Infusion Insulin Human Regular 3 unit 10/18/22 22:28 10/18/22 23:27 Insulin Regular, Human 100 Unit/Ml 3 Ml Vial IVPUSH 10/18/22 22:29 3 unit ONCE ONE Administration Medical Decision Making Medical Decision Making [facility] Narrative: Patient is 57 old with a history liver cirrhosis. Has elevated ammonia level. Likely causing patient's change in mental status. Patient's CT scan of the head was grossly negative for any acute evidence of bleeding. Has a history of the same in the past. Been compliant with medication. Will give additional lactulose. Patient's case discussed with the hospitalist team Differential Diagnosis Differential Diagnoses: The differential diagnosis associated with the presentation includes Infection, bleeding, liver cirrhosis, hepatic encephalopathy Consult Healthcare Provider Management of the patient was discussed with: Hospitalist Lab Data [facility] Lab Attestation statement: I reviewed the patient's lab results. 10/18/22 21:34 10/18/22 21:34 Labs: Lab Results 10/18/22 10/18/22 10/18/22 Range/Units 21:34 21:34 22:10 WBC 4.6 L (4.8-10.8) X10*3/uL RBC 3.79 L (4.60-5.80) X10*6/uL Hgb 11.1 L (14.0-18.0) g/dl Hct 31.4 L (42.0-52.0) % MCV 82.8 (80.0-98.0) fL MCH 29.3 (27.0-33.0) pg MCHC 35.4 (31.0-36.0) g/dl RDW 16.9 H (11.0-16.0) % Plt Count 68 L D (160-400) X10*3/uL MPV 10.7 (9.4-12.4) fL Immature Gran % (Auto) 0.2 (0.0-0.4) % Neut % (Auto) 64.7 (45-73) % Lymph % (Auto) 15.2 L (20-40) % Granite % (Auto) 13.5 H (2-11) % Eos % (Auto) 5.7 H (0-4) % Baso % (Auto) 0.7 (0-2) % Lymph # (Auto) 0.7 L (1.2-4.9) X10*3/uL Granite # (Auto) 0.6 (0.1-1.2) X10*3/uL Eos # (Auto) 0.3 (0.0-0.4) X10*3/uL Baso # (Auto) 0.0 (0.0-0.2) X10*3/uL Abs Immat Gran (auto) 0.01 (0.00-0.03) X10*3/uL Absolute Neuts (auto) 3.0 (2.0-8.3) x10*3/uL Absolute Nucleated RBC 0.000 (0.0-0.012) X10*3/uL Nucleated RBC % (auto) 0.0 (0.0-0.2) /100WBC Sodium 134 L (135-145) mmol/L Potassium 3.4 (3.3-5.1) mmol/L Chloride 100 (96-108) mmol/L Carbon Dioxide 27 (22-29) mmol/L Anion Gap 10 L (12-20) BUN 14 (9-16) mg/dL Creatinine 1.42 H (0.5-1.4) mg/dL Estim Creat Clear Calc 50.3 Estimated GFR 51 POC Glucose 351 H* (60-115) mg/dL Random Glucose 354 H* (60-115) mg/dL Calcium 8.7 (8.4-10.2) mg/dL Total Bilirubin 1.7 H (0.0-1.0) mg/dL Direct Bilirubin 0.7 H (0.0-0.5) mg/dL AST 81 H (5-37) U/L ALT 47 H (0-40) U/L Alkaline Phosphatase 253 H (39-117) U/L Ammonia (13-55) umol/L Total Protein 7.2 (6.5-8.0) g/dL Albumin 2.8 L (3.5-5.0) g/dL Lipase 59 (8-78) U/L Ethyl Alcohol < 10 mg/dL 10/18/22 10/18/22 Range/Units 23:45 23:49 WBC (4.8-10.8) X10*3/uL RBC (4.60-5.80) X10*6/uL Hgb (14.0-18.0) g/dl Hct (42.0-52.0) % MCV (80.0-98.0) fL MCH (27.0-33.0) pg MCHC (31.0-36.0) g/dl RDW (11.0-16.0) % Plt Count (160-400) X10*3/uL MPV (9.4-12.4) fL Immature Gran % (Auto) (0.0-0.4) % Neut % (Auto) (45-73) % Lymph % (Auto) (20-40) % Granite % (Auto) (2-11) % Eos % (Auto) (0-4) % Baso % (Auto) (0-2) % Lymph # (Auto) (1.2-4.9) X10*3/uL Granite # (Auto) (0.1-1.2) X10*3/uL Eos # (Auto) (0.0-0.4) X10*3/uL Baso # (Auto) (0.0-0.2) X10*3/uL Abs Immat Gran (auto) (0.00-0.03) X10*3/uL Absolute Neuts (auto) (2.0-8.3) x10*3/uL Absolute Nucleated RBC (0.0-0.012) X10*3/uL Nucleated RBC % (auto) (0.0-0.2) /100WBC Sodium (135-145) mmol/L Potassium (3.3-5.1) mmol/L Chloride (96-108) mmol/L Carbon Dioxide (22-29) mmol/L Anion Gap (12-20) BUN (9-16) mg/dL Creatinine (0.5-1.4) mg/dL Estim Creat Clear Calc Estimated GFR POC Glucose 366 H* (60-115) mg/dL Random Glucose (60-115) mg/dL Calcium (8.4-10.2) mg/dL Total Bilirubin (0.0-1.0) mg/dL Direct Bilirubin (0.0-0.5) mg/dL AST (5-37) U/L ALT (0-40) U/L Alkaline Phosphatase (39-117) U/L Ammonia 222 H (13-55) umol/L Total Protein (6.5-8.0) g/dL Albumin (3.5-5.0) g/dL Lipase (8-78) U/L Ethyl Alcohol mg/dL Independent Interpretation I performed an independent interpretation of an: CT Scan Interpretation: CT head negative Radiology Impression Discussion of test interpretation with radiology: I have reviewed the radiologist's reading. Independent Historian Family External Record Review External record reviewed: Inpatient record Chronic Conditions Liver cirrhosis Social Determinants Patient?s care significantly limited by Social Determinants of Health including: Unemployment Discharge Plan Discharge Clinical Impression: Acute hepatic encephalopathy Patient Disposition: Admitted As Inpatient Prescriptions: No Action atorvastatin 20 mg tablet 20 mg PO DAILY trazodone 50 mg tablet 50 mg PO BEDTIME PRN (Reason: insomnia) hydroxyzine HCl 25 mg tablet 25 mg PO TID PRN (Reason: itch) spironolactone 50 mg tablet 50 mg PO BEDTIME insulin glargine-yfgn [Semglee(insulin glarg-yfgn)Pen] 100 unit/mL (3 mL) insulin pen 45 unit subcut BID ferrous sulfate 325 mg (65 mg iron) tablet 325 mg PO BID Qty: 60 0RF nadolol 20 mg tablet 20 mg PO DAILY glipizide 2.5 mg tablet extended release 24hr 2.5 mg PO DAILY pantoprazole 40 mg tablet,delayed release (DR/EC) 40 mg PO DAILY@0630 Ozempic 2 mg/dose (8 mg/3 mL) pen injector 2 mg subcut QWEEK furosemide 20 mg tablet 20 mg PO DAILY Xifaxan 550 mg Tablet 550 mg PO BID Qty: 60 0RF lactulose 20 gram/30 mL solution 20 g PO BID Qty: 2880 0RF
[2022-10-18 22:52] LABS: Ethanol < 10 mg/dL
[2022-10-18] MEDS: Insulin Regular, Human 100 UNIT/ML 3 ML VIAL IVPUSH (23:27)
[2022-10-18] MEDS: 0.9 % Sodium Chloride 500 ML 999 ML IV (23:29)
[2022-10-18 23:30] LABS: Glucose, Whole Blood 351 mg/dL (60-115)
[2022-10-18 23:54] LABS: Glucose, Whole Blood 366 mg/dL (60-115)
[2022-10-18 23:58] LABS: Ammonia 222 umol/L (13-55)
--- NOTE | 2022-10-19 00:24 | PM.IMHP ---
History of Present Illness Date of Service: 10/19/22 Chief Complaint: Altered mentation This is a 57-year-old male with pertinent history of alcoholic cirrhosis, hepatitis-C status post treatment, insulin-dependent diabetes mellitus, CAD status post stent who was brought to the emergency department for evaluation of altered mentation. Patient was recently discharged from [facility] earlier in the week after he was admitted for hepatic encephalopathy due to decompensated cirrhosis. Patient cirrhosis has been complicated with varices, ascites and encephalopathy. As per the daughter at bedside, patient was doing well until the day of presentation. He did take his morning lactulose dose. Patient started having confusion and he was incoherent and hence he was brought to the ER. Unable to obtain history review of systems of the patient. In the emergency department, ammonia level was found to be 222 Review of Systems Review of Systems: Yes Unobtainable due to mental status PMFSH Medical History Abdominal ascites Black stools Chronic hyponatremia Cirrhosis Cirrhosis of liver Diabetes Elevated cholesterol Hepatitis History of alcohol abuse HTN (hypertension) Myocardial infarction Normocytic anemia Varices, esophageal Surgical History H/O colonoscopy History of esophagogastroduodenoscopy (EGD) History of PTCA Hx of hand surgery Social History Household Members: None Housing: Apartment Do you presently have visiting nurse or other home services: No Unable to assess alcohol history related to: Unable to respond Alcohol intake: former Patient Tobacco Use Status: Former Tobacco user Quit Date: 2013 Tobacco use type: Cigarette Smoked in Last 30 Days: No Second Hand Smoke Exposure: No Use of substances other than those prescribed or required for medical reasons: No Advance Directives: No Advance Directives Information Provided: Yes service: Yes Current occupational status: employed Meds Allergies Allergy/AdvReac Type Severity Reaction Status Date / Time codeine [CODEINE] Allergy Mild ITCHINESS, Verified 10/18/22 21:13 itching penicillin G Allergy Mild itching Verified 10/18/22 21:13 Home Medications Medication Instructions Recorded Confirmed Last Taken Type atorvastatin 20 mg tablet 20 mg PO DAILY 06/29/20 10/03/22 09/08/22 History hydroxyzine HCl 25 mg tablet 25 mg PO TID PRN itch 09/09/22 10/03/22 Unknown History insulin glargine-yfgn 100 unit/mL 45 unit subcut BID 09/09/22 10/03/22 Unknown History (3 mL) subcutaneous pen (Semglee (insulin glargine-yfgn) Pen) spironolactone 50 mg tablet 50 mg PO BEDTIME 09/09/22 10/03/22 Unknown History trazodone 50 mg tablet 50 mg PO BEDTIME PRN insomnia 09/09/22 10/03/22 Unknown History furosemide 20 mg tablet 20 mg PO DAILY 10/03/22 10/03/22 Unknown History glipizide 2.5 mg tablet, extended 2.5 mg PO DAILY 10/03/22 10/03/22 Unknown History release 24 hr nadolol 20 mg tablet 20 mg PO DAILY 10/03/22 10/03/22 Unknown History pantoprazole 40 mg tablet,delayed 40 mg PO DAILY@0630 10/03/22 10/03/22 Unknown History release semaglutide 2 mg/dose (8 mg/3 mL) 2 mg subcut QWEEK 10/03/22 Unknown History subcutaneous pen injector (Ozempic) Physical Exam Vital Signs and Narrative: Vital Signs: Last Vital Signs Temp 97.9 F 10/18/22 22:14 Pulse 95 10/18/22 22:14 Resp 10 L 10/18/22 22:14 BP 140/80 H 10/18/22 22:14 Pulse Ox 100 10/18/22 22:14 O2 Del Method Room Air 10/18/22 22:14 BMI result Body Mass Index 21.9 Middle-aged male lying in bed in no distress Neck supple, no JVD Regular rate and rhythm, S1-S2 heard Regular breath sounds bilaterally, no wheezing or crackles appreciated Abdomen soft nontender, no guarding, no rigidity Patient is drowsy and only eye opening to verbal stimulus, falls back to sleep mid-conversation Results Labs 10/18/22 21:34 10/18/22 21:34 Labs: Laboratory Results - last 24 hr 10/18/22 10/18/22 10/18/22 21:34 21:34 22:10 MCV 82.8 MCH 29.3 MCHC 35.4 RDW 16.9 H Plt Count 68 L D MPV 10.7 Immature Gran % (Auto) 0.2 Neut % (Auto) 64.7 Lymph % (Auto) 15.2 L Harvey % (Auto) 13.5 H Eos % (Auto) 5.7 H Baso % (Auto) 0.7 Lymph # (Auto) 0.7 L Harvey # (Auto) 0.6 Eos # (Auto) 0.3 Baso # (Auto) 0.0 Abs Immat Gran (auto) 0.01 Absolute Neuts (auto) 3.0 Absolute Nucleated RBC 0.000 Nucleated RBC % (auto) 0.0 Anion Gap 10 L Estim Creat Clear Calc 50.3 Estimated GFR 51 POC Glucose 351 H* Random Glucose 354 H* Calcium 8.7 Total Bilirubin 1.7 H Direct Bilirubin 0.7 H AST 81 H ALT 47 H Alkaline Phosphatase 253 H Ammonia Total Protein 7.2 Albumin 2.8 L Lipase 59 Ethyl Alcohol < 10 10/18/22 10/18/22 23:45 23:49 MCV MCH MCHC RDW Plt Count MPV Immature Gran % (Auto) Neut % (Auto) Lymph % (Auto) Harvey % (Auto) Eos % (Auto) Baso % (Auto) Lymph # (Auto) Harvey # (Auto) Eos # (Auto) Baso # (Auto) Abs Immat Gran (auto) Absolute Neuts (auto) Absolute Nucleated RBC Nucleated RBC % (auto) Anion Gap Estim Creat Clear Calc Estimated GFR POC Glucose 366 H* Random Glucose Calcium Total Bilirubin Direct Bilirubin AST ALT Alkaline Phosphatase Ammonia 222 H Total Protein Albumin Lipase Ethyl Alcohol Imaging Radiologist's Impressions: Impressions Head CT 10/18/22 22:56 IMPRESSION: 1. No acute intracranial abnormality. Specifically, no CT evidence of acute intracranial hemorrhage, significant mass effect, hydrocephalus, or large territorial infarction. 2. Partially imaged subtotal opacification of the left maxillary sinus with hyperdensity which may reflect chronic inspissated/proteinaceous contents or chronic fungal elements with osteitis on the basis of chronicity. Likely opacified left maxillary sinus ostium/infundibulum, partially imaged. Correlate clinically for signs of superimposed acute sinusitis. Assessment and Plan (1) Acute hepatic encephalopathy: Status: Acute Plan This is a 57-year-old male with pertinent history of alcoholic cirrhosis, hepatitis-C status post treatment, insulin-dependent diabetes mellitus, CAD status post stent who was brought to the emergency department for evaluation of altered mentation. #. Acute hepatic encephalopathy due to decompensated cirrhosis: Initiating MT lactulose. Consulting GI, appreciate assistance. Resume rifaximin once able to take p.o.. Obtaining ultrasound for ascites. May need paracentesis pending ultrasound results. Initiating empiric IV antibiotics. Stool occult blood pending #. Insulin-dependent diabetes mellitus with hyperglycemia: Initiating Accu-Cheks with sliding scale insulin every 6 hours. Reduce basal regimen #. Acute kidney injury stage I : Resuscitated with IV crystalloids in the ER. Monitor urine output and creatinine. Avoid nephrotoxins and hold Lasix #. CAD status post stent: On statin. Not on aspirin due to bleeding risk #. Alcohol/HCV cirrhosis: On Nadolol #. Thrombocytopenia due to cirrhosis. Defer Lovenox DVT prophylaxis: Mechanical NPO until mentation improves Full code Admit as inpatient and will require two night minimum hospital stay for close monitoring of mentation and treatment of acute hepatic encephalopathy Time Spent With Patient Time: Total time managing care of this patient today ____ minutes. Quality Stroke Does the patient have a stroke diagnosis?: No VTE Prior VTE?: No VTE Risk Level:: Medical - moderate - high VTE Device Contraindication: Treatment Not Indicated VTE Drug Contraindication: N/A - Med Ordered
--- NOTE | 2022-10-19 00:35 | PC.NURSE ---
Attempted to contact [facility] with no answer at this time
[2022-10-19 00:52] LABS: Glucose, Whole Blood 293 mg/dL (60-115)
--- NOTE | 2022-10-19 00:55 | PC.NURSE ---
med rec completed at this time to the best of abilities. No answer from family when called and pt with AMS at this time.
[2022-10-19] MEDS: cefTRIAXone sodium 1 GM in 0.9 % Sodium Chloride 50 ML IV ×2 (02:12→20:12)
[2022-10-19] MEDS: Insulin Lispro 100 UNIT/ML 3 ML VIAL SUBCUT ×3 (02:12→18:03)
[2022-10-19] MEDS: Insulin Glargine,Hum.rec.anlog 100 UNIT/ML 10 ML VIAL 25 UNIT SUBCUT ×2 (02:13→22:08)
[2022-10-19 02:28] VITALS: BMI 22.7
[2022-10-19 02:47] VITALS: BP 121/63; PULSE 77; RESP 18; TEMP 36.1; O2SAT 99
[2022-10-19] MEDS: Lactulose 320 GM/480 ML SOLUTION 200 GM PR (05:48)
[2022-10-19 06:09] LABS: Glucose, Whole Blood 181 mg/dL (60-115)
--- NOTE | 2022-10-19 06:17 | PC.NURSE ---
0520- notified that labs from ED has platelet of 34 and Potassium 3.1. MD advised to wait the morning lab drawn.
[2022-10-19 07:02] LABS: MANUAL DIFF FLAG NO
[2022-10-19 07:09] LABS: Basophils Percent Auto 0.4 % (0-2); Eosinophils Absolute Auto 0.3 X10*3/uL (0.0-0.4); Eosinophils Percent Auto 6.8 % (0-4); Hematocrit 30.1 % (42.0-52.0); Hemoglobin 10.7 g/dl (14.0-18.0); Imm Gran Abs Auto 0.02 X10*3/uL (0.00-0.03); Imm Gran Pct Auto 0.4 % (0.0-0.4); Lymphocytes Absolute Auto 0.7 X10*3/uL (1.2-4.9); Lymphocytes Percent Auto 15.2 % (20-40); Mean Corpuscular HGB Conc 35.5 g/dl (31.0-36.0); Mean Corpuscular Hemoglobin 29.6 pg (27.0-33.0); Mean Corpuscular Volume 83.1 fL (80.0-98.0); Mean Platelet Volume 10.8 fL (9.4-12.4); Monocytes Absolute Auto 0.6 X10*3/uL (0.1-1.2); Monocytes Percent Auto 13.9 % (2-11); Neutrophils Absolute Auto 2.9 x10*3/uL (2.0-8.3); Neutrophils Percent Auto 63.3 % (45-73); Red Blood Count 3.62 X10*6/uL (4.60-5.80); Red Cell Distribution Width 16.9 % (11.0-16.0); White Blood Count 4.5 X10*3/uL (4.8-10.8)
[2022-10-19 07:14] LABS: Ammonia 126 umol/L (13-55)
[2022-10-19 07:27] LABS: Anion Gap 10 (12-20); Blood Urea Nitrogen 12 mg/dL (9-16); Calcium 8.5 mg/dL (8.4-10.2); Carbon Dioxide 26 mmol/L (22-29); Chloride 105 mmol/L (96-108); Creatinine Clr Calc Pharmacy 65.5; Estimated Glomerular Filt Rate > 60; Glucose Random 208 mg/dL (60-115); Potassium 2.9 mmol/L (3.3-5.1); Sodium 138 mmol/L (135-145)
[2022-10-19 07:32] LABS: Platelet Count 58 X10*3/uL (160-400)
[2022-10-19 07:34] VITALS: BP 145/79; PULSE 87; RESP 20; TEMP 36.1; O2SAT 99
[2022-10-19 07:52] LABS: Appearance Urine Clear; Color Urine Yellow; Glucose Urine UA >=1000 mg/dL (Negative); Leukocyte Esterase Urine Negative (Negative); Nitrite Urine Negative (Negative); PH 6.5 (5.0-9.0); UMIC TRIGGER UACC YES; Urine Blood Negative (Negative); Urine Ketones Negative (Negative); Urine Protein Negative (Neg-Trace)
[2022-10-19 07:57] LABS: Bacteria Urine None Seen (None Seen); Hyaline Casts Urine 0-2 /LPF (0-2); RBC Urine 0-2 /HPF (0-2); Squamous Epithelial Cell Urine 0-2 /HPF (0-2); WBC Urine 0-5 /HPF (0-5)
--- NOTE | 2022-10-19 08:12 | PHA.MEDREC ---
Pharmacy Consult ? Medication Reconciliation Pharmacy has completed the medication reconciliation. Utilized claim list as patient didn't know medications
--- NOTE | 2022-10-19 08:55 | PM.GICN ---
History of Present Illness Data of Consult Service Date: 10/19/22 Requesting physician: Elijah You Primary Care Provider: Unknown Physician HPI Reason for consult: Hepatic encephalopathy 57 YM with alcoholic cirrhosis, hepatitis-C status post treatment, IDDM, CAD status post stent seen at [facility] on 10/18/22 for evaluation of altered mentation.? Patient was recently discharged from [facility] earlier in the week after he was admitted for hepatic encephalopathy due to decompensated cirrhosis.? Patient cirrhosis has been complicated by varices, ascites and encephalopathy.? History obtained from the patient and his sister who was at his bedside, patient was visiting his sister and was doing well and was oriented. Sister noted sudden onset of confusion?while at her house. Patient started having confusion and he was incoherent and hence he was brought to the ER.? Pt denies abdominal pain, fever, chills, nausea or vomiting, black stools or blood in the stools. He reports having 3 BMs a day and denied taking any sedatives. Family admits pt took his lactulose dose yesterday morning.? Pt is followed by Dr Zuluaga for cirrhosis from previous EtOH(currently sober) and previous Hep C, s/p successful treatment. He is followed at [facility] as well. In the emergency department, ammonia level was found to be 222 and improved to 126 today Pt appears more alert today. Review of Systems Review of Systems: Yes Unobtainable due to mental status PMFSH Past Medical History Medical History Abdominal ascites Black stools Chronic hyponatremia Cirrhosis Cirrhosis of liver Diabetes Elevated cholesterol Hepatitis History of alcohol abuse HTN (hypertension) Myocardial infarction Normocytic anemia Varices, esophageal Surgical History Surgical History H/O colonoscopy History of esophagogastroduodenoscopy (EGD) History of PTCA Hx of hand surgery Social History Social History Household Members: Family Housing: House Do you presently have visiting nurse or other home services: No Unable to assess alcohol history related to: Unable to respond Alcohol intake: former Patient Tobacco Use Status: Former Tobacco user Quit Date: 2013 Tobacco use type: Cigarette Smoked in Last 30 Days: No Second Hand Smoke Exposure: No Use of substances other than those prescribed or required for medical reasons: Unable to respond Currently Displaying Signs/Symptoms of Drug Intoxication Withdrawal: No Advance Directives: No Advance Directives Information Provided: Yes Nutrition Risks: Poor intake 0-25% >4 days Poor oral hygiene: No service: Yes Current occupational status: disabled Meds Allergies Allergy/AdvReac Type Severity Reaction Status Date / Time codeine [CODEINE] Allergy Mild ITCHINESS, Verified 10/18/22 21:13 itching penicillin G Allergy Mild itching Verified 10/18/22 21:13 Active Medications: Current Medications Glucose (Glucose Gel 15 Gm Gel..Gram.) 15 gm PO Q15M PRN; Protocol PRN Reason: per Hypoglycemia Standing Ord. Ceftriaxone Sodium 1 gm/ (Sodium Chloride) 50 mls @ 100 mls/hr IV Q24H IV[facility] Dextrose (D10) 250 mls @ 750 mls/hr IV Q15M PRN; Protocol PRN Reason: per Hypoglycemia Standing Ord. Insulin Glargine (Insulin Glargine,Hum.Rec.Anlog 100 Unit/Ml 10 Ml Vial) 25 unit SUBCUT BID [facility] Last Admin: 10/19/22 02:13 Dose: 25 unit Insulin Human Lispro (Insulin Lispro 100 Unit/Ml 3 Ml Vial) 0 unit SUBCUT Q6H [facility]; Protocol Last Admin: 10/19/22 06:14 Dose: Not Given Lactulose (Lactulose 20 Gm/30 Ml Solution) 20 gm PO QID [facility] Melatonin (Melatonin 3 Mg Tablet) 6 mg PO BEDTIME PRN PRN Reason: Insomnia Ondansetron HCl (Ondansetron Hcl 4 Mg/2 Ml Vial) 4 mg IVPUSH Q8H PRN PRN Reason: Nausea and Vomiting Pharmacy Consult (Consult Rx Perform Med Rec) 1 each MISCELLANE ONCE PRN PRN Reason: Consult order Rifaximin (Rifaximin 550 Mg Tablet) 550 mg PO BID [facility] Sodium Chloride (0.9 % Sodium Chloride Flush 3 Ml Syringe) 3 ml IVFLUSH QSHIFT [facility] Home Medications Medication Instructions Recorded Confirmed Last Taken Type atorvastatin 20 mg tablet 20 mg PO DAILY 06/29/20 10/19/22 09/08/22 History hydroxyzine HCl 25 mg tablet 25 mg PO TID PRN itch 09/09/22 10/19/22 Unknown History insulin glargine-yfgn 100 unit/mL 45 unit subcut BID 09/09/22 10/19/22 Unknown History (3 mL) subcutaneous pen (Semglee (insulin glargine-yfgn) Pen) spironolactone 50 mg tablet 50 mg PO BEDTIME 09/09/22 10/19/22 Unknown History trazodone 50 mg tablet 50 mg PO BEDTIME PRN insomnia 09/09/22 10/19/22 Unknown History furosemide 20 mg tablet 20 mg PO DAILY 10/03/22 10/19/22 Unknown History glipizide 2.5 mg tablet, extended 2.5 mg PO DAILY 10/03/22 10/19/22 Unknown History release 24 hr nadolol 20 mg tablet 20 mg PO DAILY 10/03/22 10/19/22 Unknown History pantoprazole 40 mg tablet,delayed 40 mg PO DAILY@0630 10/03/22 10/19/22 Unknown History release semaglutide 2 mg/dose (8 mg/3 mL) 2 mg subcut Q7D 10/03/22 10/19/22 Unknown History subcutaneous pen injector (Ozempic) insulin lispro 100 unit/mL See Rx Instructions .Route .COMPLEX 10/19/22 10/19/22 Unknown History subcutaneous pen (Humalog KwikPen (U-100) Insulin) Physical Exam Vital Signs: Vital Signs: Last Vital Signs Temp 97.0 F 10/19/22 07:34 Pulse 87 10/19/22 07:34 Resp 20 10/19/22 07:34 BP 145/79 H 10/19/22 07:34 Pulse Ox 99 10/19/22 07:34 O2 Del Method Room Air 10/19/22 07:34 BMI result Body Mass Index 22.7 Const: General: no acute distress, awake and ill appearing Nutritional Appearance: average body habitus Orientation/consciousness: patient oriented x3 Limitations: no limitations HEENT: Head: Yes normal to inspection Ears: hearing grossly normal bilaterally Mouth: Normal oral and palatal mucosa present Eyes: Sclerae: sclerae normal Pupils: Equal, round and reactive pupils present Neck: Neck: Yes normal visual inspection Chest: Chest palpation & inspection: normal inspection of the chest Resp: Effort & Inspection: normal respiratory effort Auscultation: clear to auscultation bilaterally Cardio: Palpation: normal PMI Rate: regular rate Rhythm: regular rhythm Heart sounds: S1 normal heart sound present, S2 normal heart sound present and no murmurs GI: Palpation (GI): Soft to palpation, nontender and No hepatosplenomegaly present Auscultation: normal bowel sounds Rectal Exam - Male: Yes deferred Skin: General skin exam: no rashes or lesions noted Neuro: General: patient oriented x3, gait normal and moves all extremities Cranial nerves: Yes Equal, round and reactive pupils present Extrem: General: Yes other (bilateral flapping tremors) Psych: Appearance: grossly normal Mental Status: mental status grossly normal Results Labs 10/19/22 06:55 10/19/22 06:55 Labs: Short CBC 10/18/22 10/19/22 Range/Units 21:34 06:55 WBC 4.6 L 4.5 L (4.8-10.8) X10*3/uL Hgb 11.1 L 10.7 L (14.0-18.0) g/dl Hct 31.4 L 30.1 L (42.0-52.0) % Plt Count 68 L D 58 L (160-400) X10*3/uL BMP 10/18/22 10/19/22 21:34 06:55 Sodium 134 L 138 Potassium 3.4 2.9 L Chloride 100 105 Carbon Dioxide 27 26 BUN 14 12 Creatinine 1.42 H 1.13 Calcium 8.7 8.5 Liver Function 10/18/22 Range/Units 21:34 Total Bilirubin 1.7 H (0.0-1.0) mg/dL Direct Bilirubin 0.7 H (0.0-0.5) mg/dL AST 81 H (5-37) U/L ALT 47 H (0-40) U/L Alkaline Phosphatase 253 H (39-117) U/L Albumin 2.8 L (3.5-5.0) g/dL Urine 10/19/22 Range/Units 06:25 Urine Color Yellow Urine Appearance Clear Urine pH 6.5 (5.0-9.0) Ur Specific [place] 1.020 (1.005-1.025) Urine Protein Negative (Neg-Trace) mg/dL Urine Glucose (UA) >=1000 H (Negative) mg/dL Assessment and Plan (1) Acute hepatic encephalopathy: Status: Acute Plan 57 YM with ESLD (MELD Na score is 13) due to past ETOH abuse and hepatitis-C status post treatment complicated by portal hypertension, esophageal varices, thrombocytopenia, ascites and hepatic encephalopathy admitted on 10/18/22 with a sudden change in mental status and elevated ammonia.? Patient reports compliance with lactulose and denies taking any sedatives. Etiology of hepatic encephalopathy is unclear - possibly related to dehydration since pt had an elevated creatinine on admission. He is on antibiotics. Pt is followed by Dr Zuluaga for cirrhosis from previous EtOH(currently sober) and previous Hep C, s/p successful treatment. He is followed at [facility] as well. In the emergency department, ammonia level was found to be 222 and improved to 126 today RECOMMENDATIONS: 1. Agree with Lactulose and Rifaximin, PPI and IV antibiotics. 2. Monitor labs and ammonia levels 3. If he does not improve, please contact [facility] about a possible transfer.? Time Spent With Patient Time: Total time managing care of this patient today ____ minutes. Procedures Date of Service Date of Service: 10/25/22
--- NOTE | 2022-10-19 09:05 | HO.PM.IMPN ---
Subjective Subjective Date of Service: 10/19/22 Interval History: confused, fell Physical Exam Vital Signs: Vital Signs: Last Vital Signs Temp 97.0 F 10/19/22 07:34 Pulse 87 10/19/22 07:34 Resp 20 10/19/22 07:34 BP 145/79 H 10/19/22 07:34 Pulse Ox 99 10/19/22 07:34 O2 Del Method Room Air 10/19/22 07:34 BMI result Body Mass Index 22.7 awake, confused, tremulous, abd soft Objective Data Active Medications Glucose (Glucose Gel 15 Gm Gel..Gram.) 15 gm PO Q15M PRN; Protocol PRN Reason: per Hypoglycemia Standing Ord. Ceftriaxone Sodium 1 gm/ (Sodium Chloride) 50 mls @ 100 mls/hr IV Q24H [facility] Dextrose (D10) 250 mls @ 750 mls/hr IV Q15M PRN; Protocol PRN Reason: per Hypoglycemia Standing Ord. Insulin Glargine (Insulin Glargine,Hum.Rec.Anlog 100 Unit/Ml 10 Ml Vial) 25 unit SUBCUT BID [facility] Last Admin: 10/19/22 02:13 Dose: 25 unit Documented By: KAZ Insulin Human Lispro (Insulin Lispro 100 Unit/Ml 3 Ml Vial) 0 unit SUBCUT Q6H [facility]; Protocol Last Admin: 10/19/22 06:14 Dose: Not Given Documented By: MELVA Non-Admin Reason: NPO Lactulose (Lactulose 20 Gm/30 Ml Solution) 20 gm PO QID [facility] Melatonin (Melatonin 3 Mg Tablet) 6 mg PO BEDTIME PRN PRN Reason: Insomnia Ondansetron HCl (Ondansetron Hcl 4 Mg/2 Ml Vial) 4 mg IVPUSH Q8H PRN PRN Reason: Nausea and Vomiting Pharmacy Consult (Consult Rx Perform Med Rec) 1 each MISCELLANE ONCE PRN PRN Reason: Consult order Rifaximin (Rifaximin 550 Mg Tablet) 550 mg PO BID [facility] Sodium Chloride (0.9 % Sodium Chloride Flush 3 Ml Syringe) 3 ml IVFLUSH QSHIFT [facility] Labs 10/19/22 06:55 10/19/22 06:55 Labs: Laboratory Results - last 24 hr 10/18/22 10/18/22 10/18/22 21:34 21:34 22:10 MCV 82.8 MCH 29.3 MCHC 35.4 RDW 16.9 H Plt Count 68 L D MPV 10.7 Immature Gran % (Auto) 0.2 Neut % (Auto) 64.7 Lymph % (Auto) 15.2 L Gilliam % (Auto) 13.5 H Eos % (Auto) 5.7 H Baso % (Auto) 0.7 Lymph # (Auto) 0.7 L Gilliam # (Auto) 0.6 Eos # (Auto) 0.3 Baso # (Auto) 0.0 Abs Immat Gran (auto) 0.01 Absolute Neuts (auto) 3.0 Absolute Nucleated RBC 0.000 Nucleated RBC % (auto) 0.0 Anion Gap 10 L Estim Creat Clear Calc 50.3 Estimated GFR 51 POC Glucose 351 H* Random Glucose 354 H* Calcium 8.7 Total Bilirubin 1.7 H Direct Bilirubin 0.7 H AST 81 H ALT 47 H Alkaline Phosphatase 253 H Ammonia Total Protein 7.2 Albumin 2.8 L Lipase 59 Urine Color Urine Appearance Urine pH Ur Specific [place] Urine Protein Urine Glucose (UA) Urine Ketones Urine Blood Urine Nitrite Ur Leukocyte Esterase Urine RBC Urine WBC Ur Squamous Epith Cells Urine Bacteria Hyaline Casts Ethyl Alcohol < 10 10/18/22 10/18/22 10/19/22 23:45 23:49 00:48 MCV MCH MCHC RDW Plt Count MPV Immature Gran % (Auto) Neut % (Auto) Lymph % (Auto) Gilliam % (Auto) Eos % (Auto) Baso % (Auto) Lymph # (Auto) Gilliam # (Auto) Eos # (Auto) Baso # (Auto) Abs Immat Gran (auto) Absolute Neuts (auto) Absolute Nucleated RBC Nucleated RBC % (auto) Anion Gap Estim Creat Clear Calc Estimated GFR POC Glucose 366 H* 293 H Random Glucose Calcium Total Bilirubin Direct Bilirubin AST ALT Alkaline Phosphatase Ammonia 222 H Total Protein Albumin Lipase Urine Color Urine Appearance Urine pH Ur Specific [place] Urine Protein Urine Glucose (UA) Urine Ketones Urine Blood Urine Nitrite Ur Leukocyte Esterase Urine RBC Urine WBC Ur Squamous Epith Cells Urine Bacteria Hyaline Casts Ethyl Alcohol 10/19/22 10/19/22 10/19/22 06:05 06:25 06:55 MCV 83.1 MCH 29.6 MCHC 35.5 RDW 16.9 H Plt Count 58 L MPV 10.8 Immature Gran % (Auto) 0.4 Neut % (Auto) 63.3 Lymph % (Auto) 15.2 L Gilliam % (Auto) 13.9 H Eos % (Auto) 6.8 H Baso % (Auto) 0.4 Lymph # (Auto) 0.7 L Gilliam # (Auto) 0.6 Eos # (Auto) 0.3 Baso # (Auto) 0.0 Abs Immat Gran (auto) 0.02 Absolute Neuts (auto) 2.9 Absolute Nucleated RBC 0.000 Nucleated RBC % (auto) 0.0 Anion Gap Estim Creat Clear Calc Estimated GFR POC Glucose 181 H Random Glucose Calcium Total Bilirubin Direct Bilirubin AST ALT Alkaline Phosphatase Ammonia Total Protein Albumin Lipase Urine Color Yellow Urine Appearance Clear Urine pH 6.5 Ur Specific [place] 1.020 Urine Protein Negative Urine Glucose (UA) >=1000 H Urine Ketones Negative Urine Blood Negative Urine Nitrite Negative Ur Leukocyte Esterase Negative Urine RBC 0-2 Urine WBC 0-5 Ur Squamous Epith Cells 0-2 Urine Bacteria None Seen Hyaline Casts 0-2 Ethyl Alcohol 10/19/22 10/19/22 06:55 06:55 MCV MCH MCHC RDW Plt Count MPV Immature Gran % (Auto) Neut % (Auto) Lymph % (Auto) Gilliam % (Auto) Eos % (Auto) Baso % (Auto) Lymph # (Auto) Gilliam # (Auto) Eos # (Auto) Baso # (Auto) Abs Immat Gran (auto) Absolute Neuts (auto) Absolute Nucleated RBC Nucleated RBC % (auto) Anion Gap 10 L Estim Creat Clear Calc 65.5 Estimated GFR > 60 POC Glucose Random Glucose 208 H Calcium 8.5 Total Bilirubin Direct Bilirubin AST ALT Alkaline Phosphatase Ammonia 126 H Total Protein Albumin Lipase Urine Color Urine Appearance Urine pH Ur Specific [place] Urine Protein Urine Glucose (UA) Urine Ketones Urine Blood Urine Nitrite Ur Leukocyte Esterase Urine RBC Urine WBC Ur Squamous Epith Cells Urine Bacteria Hyaline Casts Ethyl Alcohol Assessment and Plan (1) Acute hepatic encephalopathy: Status: Acute Plan 57M PMH of alcoholic cirrhosis, hepatitis-C status post treatment, insulin-dependent diabetes mellitus, CAD status post stent presented with ams acute on chronic metabolic encephalopathy due to hepatic encephalopathy due to decompensated alcohol cirrhosis lactulose DM with hyperglycemia insulin pocs fall check CT head juan resolved hypokalemia replace and monitor CAD stent, no asa due to thrombocytopenia (from cirrhosis) DVT prophylaxis:? Mechanical Full code reason for continued hospitalization:ams Time Spent With Patient Time: Total time managing care of this patient today ____ minutes. Quality Stroke Does the patient have a stroke diagnosis?: No VTE Prior VTE?: No VTE Risk Level:: Medical - moderate - high VTE Device Contraindication: Treatment Not Indicated VTE Drug Contraindication: N/A - Med Ordered
[2022-10-19] MEDS: Lactulose 20 GM/30 ML SOLUTION PO ×4 (10:11→20:11)
[2022-10-19] MEDS: rifAXIMin 550 MG TABLET PO ×2 (10:14→20:12)
[2022-10-19] MEDS: Potassium Chloride ER 20 MEQ TAB.ER.PRT 40 MEQ PO (10:14)
[2022-10-19] MEDS: 0.9 % Sodium Chloride Flush 3 ML SYRINGE IVFLUSH ×3 (10:14→20:13)
--- NOTE | 2022-10-19 11:00 | PC.NURSE ---
incident occurred ~08:15. this nurse was in with a pt when bed alarm was heard and went to investigate. upon arrival pt was on the floor on bilateral knees (RED SOCKS, RED BRACELET, BED ALARM ON), no evidence of head strike. this nurse assessed pt, no abrasion to knees. vitals within normal limits - T:97.9 HR94, RR:20, BP 145/76 100% RA. pt admitted for AMS, pt was not making sense, cannot follow commands. this nurse went to supervisor pastry and advocated for a sitter. due to lack of staff, rounder will be rounding between this pt and another pt. camera in place in room now. notified - head CT ordered. pt is awake and alert however still confused.
[2022-10-19 12:29] LABS: Glucose, Whole Blood 243 mg/dL (60-115)
[2022-10-19 15:11] VITALS: BP 126/72; PULSE 92; RESP 20; TEMP 36.6; O2SAT 99
[2022-10-19 16:04] LABS: Glucose, Whole Blood 289 mg/dL (60-115)
--- NOTE | 2022-10-19 17:22 | PC.NURSE ---
pt more alert, more coherent and oriented. knows name, , and that we're at a hospital. watching TV comfortably.
[2022-10-19 17:53] LABS: Glucose, Whole Blood 279 mg/dL (60-115)
[2022-10-19 19:06] VITALS: BP 122/67; PULSE 95; RESP 20; TEMP 36.1; O2SAT 98
[2022-10-19 21:33] LABS: Glucose, Whole Blood 219 mg/dL (60-115)
[2022-10-20 04:00] VITALS: BP 101/58; PULSE 86; RESP 20; TEMP 36.2; O2SAT 99
[2022-10-20 06:04] LABS: Hematocrit 31.1 % (42.0-52.0); Hemoglobin 10.8 g/dl (14.0-18.0); Mean Corpuscular HGB Conc 34.7 g/dl (31.0-36.0); Mean Corpuscular Hemoglobin 29.3 pg (27.0-33.0); Mean Corpuscular Volume 84.3 fL (80.0-98.0); Mean Platelet Volume 10.5 fL (9.4-12.4); Red Blood Count 3.69 X10*6/uL (4.60-5.80); Red Cell Distribution Width 17.2 % (11.0-16.0); White Blood Count 4.4 X10*3/uL (4.8-10.8)
[2022-10-20 06:05] LABS: Platelet Count 50 X10*3/uL (160-400)
[2022-10-20 06:31] LABS: Anion Gap 11 (12-20); Blood Urea Nitrogen 10 mg/dL (9-16); Calcium 8.4 mg/dL (8.4-10.2); Carbon Dioxide 24 mmol/L (22-29); Chloride 107 mmol/L (96-108); Creatinine Clr Calc Pharmacy 71.8; Estimated Glomerular Filt Rate > 60; Glucose Fasting 182 mg/dL (60-99); Potassium 3.3 mmol/L (3.3-5.1); Sodium 139 mmol/L (135-145)
[2022-10-20 07:11] LABS: Glucose, Whole Blood 175 mg/dL (60-115)
[2022-10-20 07:57] VITALS: BP 123/71; PULSE 90; RESP 20; TEMP 36.2; O2SAT 98
[2022-10-20] MEDS: Insulin Lispro 100 UNIT/ML 3 ML VIAL SUBCUT ×4 (08:00→21:58)
[2022-10-20] MEDS: 0.9 % Sodium Chloride Flush 3 ML SYRINGE IVFLUSH ×2 (08:00→17:00)
[2022-10-20] MEDS: Insulin Glargine,Hum.rec.anlog 100 UNIT/ML 10 ML VIAL 25 UNIT SUBCUT ×2 (08:00→21:58)
[2022-10-20] MEDS: Lactulose 20 GM/30 ML SOLUTION PO ×4 (08:01→21:57)
[2022-10-20] MEDS: rifAXIMin 550 MG TABLET PO ×2 (08:01→21:57)
--- NOTE | 2022-10-20 09:15 | P.PNIM_ITS ---
Subjective Subjective Date of Service: 10/20/22 Interval History: a bit more alert Physical Exam Vital Signs: Vital Signs: Last Vital Signs Temp 97.1 F 10/20/22 07:57 Pulse 90 10/20/22 07:57 Resp 20 10/20/22 07:57 BP 123/71 10/20/22 07:57 Pulse Ox 98 10/20/22 07:57 O2 Del Method Room Air 10/20/22 07:57 BMI result Body Mass Index 22.7 awake, confused, less tremulous, abd soft Objective Data Active Medications Glucose (Glucose Gel 15 Gm Gel..Gram.) 15 gm PO Q15M PRN; Protocol PRN Reason: per Hypoglycemia Standing Ord. Glucose (Glucose Gel 15 Gm Gel..Gram.) 15 gm PO Q15M PRN; Protocol PRN Reason: per Hypoglycemia Standing Ord. Ceftriaxone Sodium 1 gm/ (Sodium Chloride) 50 mls @ 100 mls/hr IV Q24H [facility] Last Infusion: 10/19/22 21:01 Dose: 0 mls/hr Documented By: MELVA Dextrose (D10) 250 mls @ 750 mls/hr IV Q15M PRN; Protocol PRN Reason: per Hypoglycemia Standing Ord. Dextrose (D10) 250 mls @ 750 mls/hr IV Q15M PRN; Protocol PRN Reason: per Hypoglycemia Standing Ord. Insulin Glargine (Insulin Glargine,Hum.Rec.Anlog 100 Unit/Ml 10 Ml Vial) 25 unit SUBCUT BID [facility] Last Admin: 10/20/22 08:00 Dose: 25 unit Documented By: CARRIE Insulin Human Lispro (Insulin Lispro 100 Unit/Ml 3 Ml Vial) 0 unit SUBCUT QIDACHS [facility]; Protocol Last Admin: 10/20/22 08:00 Dose: 2 unit Documented By: CARRIE Lactulose (Lactulose 20 Gm/30 Ml Solution) 20 gm PO QID [facility] Last Admin: 10/20/22 08:01 Dose: 20 gm Documented By: CARRIE Melatonin (Melatonin 3 Mg Tablet) 6 mg PO BEDTIME PRN PRN Reason: Insomnia Ondansetron HCl (Ondansetron Hcl 4 Mg/2 Ml Vial) 4 mg IVPUSH Q8H PRN PRN Reason: Nausea and Vomiting Pharmacy Consult (Consult Rx Perform Med Rec) 1 each MISCELLANE ONCE PRN PRN Reason: Consult order Rifaximin (Rifaximin 550 Mg Tablet) 550 mg PO BID [facility] Last Admin: 10/20/22 08:01 Dose: 550 mg Documented By: CARRIE Sodium Chloride (0.9 % Sodium Chloride Flush 3 Ml Syringe) 3 ml IVFLUSH QSHIFT [facility] Last Admin: 10/20/22 08:00 Dose: 3 ml Documented By: CARRIE Labs 10/20/22 05:50 10/20/22 05:50 Labs: Laboratory Results - last 24 hr 10/19/22 10/19/22 10/19/22 11:46 15:59 17:49 MCV MCH MCHC RDW Plt Count MPV Absolute Nucleated RBC Nucleated RBC % (auto) Anion Gap Estim Creat Clear Calc Estimated GFR POC Glucose 243 H 289 H 279 H Fasting Glucose Calcium 10/19/22 10/20/22 10/20/22 21:30 05:50 05:50 MCV 84.3 MCH 29.3 MCHC 34.7 RDW 17.2 H Plt Count 50 L MPV 10.5 Absolute Nucleated RBC 0.000 Nucleated RBC % (auto) 0.0 Anion Gap 11 L Estim Creat Clear Calc 71.8 Estimated GFR > 60 POC Glucose 219 H Fasting Glucose 182 H Calcium 8.4 10/20/22 07:04 MCV MCH MCHC RDW Plt Count MPV Absolute Nucleated RBC Nucleated RBC % (auto) Anion Gap Estim Creat Clear Calc Estimated GFR POC Glucose 175 H Fasting Glucose Calcium Assessment and Plan (1) Acute hepatic encephalopathy: Status: Acute Plan 57M PMH of alcoholic cirrhosis, hepatitis-C status post treatment, insulin- dependent diabetes mellitus, CAD status post stent presented with ams acute on chronic metabolic encephalopathy due to hepatic encephalopathy due to decompensated alcohol cirrhosis lactulose, goal 2-4bm/day DM with hyperglycemia insulin pocs fall ct head negative juan resolved hypokalemia replaced CAD stent, no asa due to thrombocytopenia (from cirrhosis) DVT prophylaxis:? Mechanical Full code reason for continued hospitalization:ams Time Spent With Patient Time: Total time managing care of this patient today ____ minutes. Quality Stroke Does the patient have a stroke diagnosis?: No VTE Prior VTE?: No VTE Risk Level:: Medical - moderate - high VTE Device Contraindication: Treatment Not Indicated VTE Drug Contraindication: N/A - Med Ordered
[2022-10-20 11:52] LABS: Glucose, Whole Blood 263 mg/dL (60-115)
[2022-10-20 15:07] VITALS: BP 123/64; PULSE 96; RESP 20; TEMP 36.9; O2SAT 98
--- NOTE | 2022-10-20 15:54 | MHC.CM.PN ---
CM MET WITH PT AND SON AT BEDSIDE PT LIVES ALONE AND CURRENTLY ONLY HAS VNA SERVICES THEY THINK IT IS [facility] BUT THOSE SERVICES ARE TAPERING OFF THEY HAVE CONCERNS ABOUT PT BEING ALONE DUE TO FREQUENT READMISSIONS AND ARE REQUESTING A REFERRAL TO [facility] CM WILL ALSO ASK MD TO RENEW [facility] ORDERS AT DC FAMILY WOULD LIKE [facility] TO CALL DAUGHTER, GRAY [phone] FOR SOC PT DOES HAVE A PCP APPT COMING UP AND WILL DISCUSS A REFERRAL FOR [employer] TASK SENT TO [facility] TO SEE IF APPT COULD BE MOVED UP HCP ON FILE PCP: HUANG HERRING AT [facility] PT IS ALEXUS MARTÍNEZ CURRENT DC PLAN IS HOME WITH RESUMPTION OF [facility] AND A [facility] REFERRAL FAMILY WILL TRANSPORT
[2022-10-20 16:03] LABS: Glucose, Whole Blood 363 mg/dL (60-115)
[2022-10-20 19:13] VITALS: BP 113/67; PULSE 106; RESP 20; TEMP 36.4; O2SAT 98
[2022-10-20 19:46] LABS: Glucose, Whole Blood 250 mg/dL (60-115)
[2022-10-20] MEDS: cefTRIAXone sodium 1 GM in 0.9 % Sodium Chloride 50 ML IV (21:57)
[2022-10-21 03:58] VITALS: BP 138/76; PULSE 84; RESP 20; TEMP 37; O2SAT 98
[2022-10-21 07:13] LABS: Hematocrit 30.7 % (42.0-52.0); Hemoglobin 10.6 g/dl (14.0-18.0); Mean Corpuscular HGB Conc 34.5 g/dl (31.0-36.0); Mean Corpuscular Volume 84.1 fL (80.0-98.0); Mean Platelet Volume 10.6 fL (9.4-12.4); Red Blood Count 3.65 X10*6/uL (4.60-5.80); Red Cell Distribution Width 17.2 % (11.0-16.0); White Blood Count 4.2 X10*3/uL (4.8-10.8)
[2022-10-21 07:15] LABS: Platelet Count 53 X10*3/uL (160-400)
[2022-10-21 07:27] LABS: Glucose, Whole Blood 139 mg/dL (60-115)
[2022-10-21 07:35] LABS: Anion Gap 8 (12-20); Blood Urea Nitrogen 11 mg/dL (9-16); Calcium 8.5 mg/dL (8.4-10.2); Carbon Dioxide 28 mmol/L (22-29); Chloride 104 mmol/L (96-108); Creatinine Clr Calc Pharmacy 76.3; Estimated Glomerular Filt Rate > 60; Glucose Fasting 136 mg/dL (60-99); Potassium 3.2 mmol/L (3.3-5.1); Sodium 137 mmol/L (135-145)
[2022-10-21 08:00] VITALS: BP 121/64; PULSE 104; RESP 20; TEMP 37; O2SAT 98
[2022-10-21] MEDS: Insulin Glargine,Hum.rec.anlog 100 UNIT/ML 10 ML VIAL 25 UNIT SUBCUT (09:50)
[2022-10-21] MEDS: Lactulose 20 GM/30 ML SOLUTION PO (09:50)
[2022-10-21] MEDS: Potassium Chloride ER 20 MEQ TAB.ER.PRT 40 MEQ PO (09:51)
[2022-10-21] MEDS: 0.9 % Sodium Chloride Flush 3 ML SYRINGE IVFLUSH (09:52)
[2022-10-21] MEDS: rifAXIMin 550 MG TABLET PO (09:52)
--- NOTE | 2022-10-21 09:54 | P.EN_ITS ---
Event Note Date of Service: 10/21/22 Event Note: solution coordinator at [facility]: Colleen: [phone] Time Spent With Patient Time: Total time managing care of this patient today ____ minutes.
--- NOTE | 2022-10-21 09:54 | PM.EVENT ---
Event Note Date of Service: 10/21/22 Event Note: home care coordinator at [facility]: Colleen: [phone] Time Spent With Patient Time: Total time managing care of this patient today ____ minutes.
--- NOTE | 2022-10-21 10:24 | P.DS_ITS ---
DS: Providers Provider Date of Service: 10/21/22 Date of admission: 10/19/22 00:23 Primary care physician: Unknown Physician Consults: 10/19/22 00:25 Consult to Gastroenterology Routine Consulting Provider: Maverick Zuluaga Reason for consultation: Hepatic encephalopathy DS: Diagnosis Discharge Diagnosis (1) Acute hepatic encephalopathy: Status: Acute DS: Summary Hospital Course Hospital Course: from initial hpi: 57-year-old male with pertinent history of alcoholic cirrhosis, hepatitis-C status post treatment, insulin-dependent diabetes mellitus, CAD status post stent who was brought to the emergency department for evaluation of altered mentation.? Patient was recently discharged from [facility] earlier in the week after he was admitted for hepatic encephalopathy due to decompensated cirrhosis .? Patient cirrhosis has been complicated with varices, ascites and encephalopathy.? As per the daughter at bedside, patient was doing well until the day of presentation.? He did take his morning lactulose dose.? Patient started having confusion and he was incoherent and hence he was brought to the ER.? Unable to obtain history review of systems of the patient. In the emergency department, ammonia level was found to be 222 hospital course: For acute on chronic metabolic encephalopathy due to hepatic encephalopathy due to decompensated alcohol cirrhosis. He was treated with lactulose and rifaximin and mental status returned to baseline. Patient follows with [facility] and they were made aware of his recent multiple admissions for hepatic encephalopathy, he will continue to follow up with them as outpatient. For diabetes with hyperglycemia he was treated with insulin. For acute kidney injury this resolved. For hypokalemia this was replaced. For coronary disease he was continue on stent, is not on aspirin due to thrombocytopenia from cirrhosis. Course was complicated by mechanical fall, CT head was unremarkable patient is ambulating well without pain. Patient's back to baseline will be discharged home. Time Spent with Patient Time attestation: Total time managing care of this patient today ____ minutes. Discharge coordination time: Greater than 30 minutes Quality: Safe Use of Opioids Does Pt have an Active Cancer Diagnosis on the Problem List?: No Quality: Stroke Does the patient have a stroke diagnosis?: No Physical Exam Vital Signs: Vital Signs: Last Vital Signs Temp 98.6 F 10/21/22 08:00 Pulse 104 H 10/21/22 08:00 Resp 20 10/21/22 08:00 BP 121/64 10/21/22 08:00 Pulse Ox 98 10/21/22 08:00 O2 Del Method Room Air 10/21/22 08:00 BMI result Body Mass Index 22.7 alert oriented times 3, frail, abd soft DS: Data Data Completed and Pending Completed studies during hospitalization [Text1]: Procedures Drainage of Peritoneal Cavity, Percutaneous Approach (09/09/22) Inspection of Upper Intestinal Tract, Via Natural or Artificial Opening Endoscopic (09/09/22) Transfusion of Nonautologous Red Blood Cells into Peripheral Vein, Percutaneous Approach (09/09/22) Labs on day of discharge: Laboratory Results - last 24 hr 10/20/22 10/20/22 10/20/22 11:39 16:00 19:42 WBC RBC Hgb Hct MCV MCH MCHC RDW Plt Count MPV Absolute Nucleated RBC Nucleated RBC % (auto) Sodium Potassium Chloride Carbon Dioxide Anion Gap BUN Creatinine Estim Creat Clear Calc Estimated GFR POC Glucose 263 H 363 H* 250 H Fasting Glucose Calcium 10/21/22 10/21/22 10/21/22 06:38 06:38 07:14 WBC 4.2 L RBC 3.65 L Hgb 10.6 L Hct 30.7 L MCV 84.1 MCH 29.0 MCHC 34.5 RDW 17.2 H Plt Count 53 L MPV 10.6 Absolute Nucleated RBC 0.000 Nucleated RBC % (auto) 0.0 Sodium 137 Potassium 3.2 L Chloride 104 Carbon Dioxide 28 Anion Gap 8 L BUN 11 Creatinine 0.97 Estim Creat Clear Calc 76.3 Estimated GFR > 60 POC Glucose 139 H Fasting Glucose 136 H Calcium 8.5 Discharge Plan Discharge Anticipated Discharge Date/Time: 10/21/22 10:12 Patient Disposition: Home Health Service Discharge Diagnosis: hepatic encephaloapthy Referrals: Physician,Unknown J [Primary Care Provider] - 1 Week Maverick Zuluaga [Physician] - 1 Week Discharge Medications: Continued atorvastatin 20 mg tablet 20 mg PO DAILY trazodone 50 mg tablet 50 mg PO BEDTIME PRN (Reason: insomnia) hydroxyzine HCl 25 mg tablet 25 mg PO TID PRN (Reason: itch) spironolactone 50 mg tablet 50 mg PO BEDTIME insulin glargine-yfgn [Semglee(insulin glarg-yfgn)Pen] 100 unit/mL (3 mL) insulin pen 45 unit subcut BID ferrous sulfate 325 mg (65 mg iron) tablet 325 mg PO BID Qty: 60 0RF nadolol 20 mg tablet 20 mg PO DAILY glipizide 2.5 mg tablet extended release 24hr 2.5 mg PO DAILY pantoprazole 40 mg tablet,delayed release (DR/EC) 40 mg PO DAILY@0630 Ozempic 2 mg/dose (8 mg/3 mL) pen injector 2 mg subcut Q7D furosemide 20 mg tablet 20 mg PO DAILY Xifaxan 550 mg Tablet 550 mg PO BID Qty: 60 0RF lactulose 20 gram/30 mL solution 20 g PO BID Qty: 2880 0RF insulin lispro [Humalog KwikPen Insulin] 100 unit/mL insulin pen See Rx Instructions .ROUTE .COMPLEX Rx Instructions: SLIDING SCALE Discharge Orders: Discharge Order (Routine); Ordered 10/21/22 Ordered By: Tony Phillip Diet: Advance to usual diet Activity on Discharge: As tolerated Stand Alone Forms: Patient Portal Discharge page Care Plan Goals: manage chronic liver disease Health Concerns: liver cirrhosis, frequent hepatic encephalopathy Plan of Treatment: lactulosem rifaximin, follow up with [facility] Assessment: see above
--- NOTE | 2022-10-21 10:29 | W.MHC.F2F ---
Service Date Service Date: 10/21/22 Encounter Date of encounter: 10/21/22 Reasons for Services Signs and symptoms assessed: frailty Reason for custodial: medication management, medication treatment, teach disease management and other (monitor for signs of encephalopathy and adjust lactulose as needed for 2-4bm/day) Homebound: Leaving the home is medically contraindicated at this time without the asist of a device and/or another person due th the listed conditions above and below. Reason homebound: unsteady gait / fall risk Certification: Based on the above findings, I certify that this patient is confined to the home and needs intermittent custodial care, physical therapy and/or speech therapy, or continues to need occupational therapy. The patient is under my care, and I have initiated the establishment of the plan of care. The patient will be followed by a physician who will periodically review the plan of care. Time Spent With Patient Time: Total time managing care of this patient today ____ minutes.
--- NOTE | 2022-10-21 11:09 | MHC.CM.PN ---
Patient has been medically cleared for dc to home today, with services. Patient is active with [facility], who has been notified of today's dc.
[2022-10-21 11:19] LABS: Glucose, Whole Blood 303 mg/dL (60-115)
[2022-10-21] MEDS: Insulin Lispro 100 UNIT/ML 3 ML VIAL SUBCUT (11:37)
== END 2022-10-21 12:47 | disposition home health service (06) | DRG 432 ==
LOC: HO.ED 10-19 00:36 → HO.EDOVER 10-19 01:41 → HO.IMC 10-19 01:42
PROVIDERS: Admitting Provider Student in an Organized Health Care Education/Training Program; Emergency Provider Emergency Medicine Emergency Medical Services; PCP Physician Assistant Medical; Visit Provider Internal Medicine
DX: K70.30 Alcoholic cirrhosis of liver without ascites (principal); G93.41 Metabolic encephalopathy; N17.9 Acute kidney failure, unspecified; K76.82 Hepatic encephalopathy; F10.11 Alcohol abuse, in remission; E11.65 Type 2 diabetes mellitus with hyperglycemia; I25.10 Atherosclerotic heart disease of native coronary artery without angina pectoris; E87.6 Hypokalemia; D69.59 Other secondary thrombocytopenia; Z76.82 Awaiting organ transplant status; Z87.891 Personal history of nicotine dependence; Z88.0 Allergy status to penicillin; Z88.5 Allergy status to narcotic agent; Z86.19 Personal history of other infectious and parasitic diseases; Z79.4 Long term (current) use of insulin; Z79.899 Other long term (current) drug therapy
CPT/HCPCS: 36415; 70450; 76705; 80048; 80076; 80307; 81001; 81003; 82140; 82947; 83690; 85025; 85027; 93005; 99285; J0696

== ENCOUNTER 2022-11-14 11:58 | Outpatient (REF) | payer OTHER, MEDICAID, SELFPAY ==
[2022-11-14 12:13] LABS: MANUAL DIFF FLAG NO
[2022-11-14 12:21] LABS: Ammonia 50 umol/L (13-55)
[2022-11-14 12:45] LABS: INTERNATIONAL NORM RATIO 1.2 (0.9-1.1); Prothrombin Time 13.7 SEC (10.0-13.1)
[2022-11-14 12:49] LABS: Basophils Percent Auto 0.7 % (0-2); Eosinophils Absolute Auto 0.1 X10*3/uL (0.0-0.4); Eosinophils Percent Auto 2.4 % (0-4); Hematocrit 34.9 % (42.0-52.0); Hemoglobin 12.1 g/dl (14.0-18.0); Imm Gran Abs Auto 0.02 X10*3/uL (0.00-0.03); Imm Gran Pct Auto 0.3 % (0.0-0.4); Lymphocytes Absolute Auto 0.7 X10*3/uL (1.2-4.9); Lymphocytes Percent Auto 12.8 % (20-40); Mean Corpuscular HGB Conc 34.7 g/dl (31.0-36.0); Mean Corpuscular Hemoglobin 30.3 pg (27.0-33.0); Mean Corpuscular Volume 87.5 fL (80.0-98.0); Mean Platelet Volume 10.7 fL (9.4-12.4); Monocytes Absolute Auto 0.7 X10*3/uL (0.1-1.2); Monocytes Percent Auto 12.8 % (2-11); Neutrophils Absolute Auto 4.1 x10*3/uL (2.0-8.3); Platelet Count 101 X10*3/uL (160-400); Red Blood Count 3.99 X10*6/uL (4.60-5.80); Red Cell Distribution Width 16.1 % (11.0-16.0); White Blood Count 5.7 X10*3/uL (4.8-10.8)
[2022-11-14 13:00] LABS: Alanine Aminotransferase 63 U/L (0-40); Albumin Level 2.8 g/dL (3.5-5.0); Alkaline Phosphatase 264 U/L (39-117); Anion Gap 10 (12-20); Aspartate Amino Transferase 92 U/L (5-37); Bilirubin Direct 0.8 mg/dL (0.0-0.5); Blood Urea Nitrogen 10 mg/dL (9-16); Carbon Dioxide 26 mmol/L (22-29); Chloride 102 mmol/L (96-108); Estimated Glomerular Filt Rate 57; Potassium 4.8 mmol/L (3.3-5.1); Sodium 133 mmol/L (135-145)
== END 2022-11-14 11:59 | disposition home or self-care (01) ==
LOC: HO.LAB 11:58
PROVIDERS: PCP Internal Medicine; Visit Provider Internal Medicine
DX: K70.31 Alcoholic cirrhosis of liver with ascites (principal); K76.82 Hepatic encephalopathy
CPT/HCPCS: 36415; 80051; 80076; 82140; 82565; 84520; 85025; 85610

== ENCOUNTER 2022-11-21 12:51 | Outpatient (REF) | payer OTHER, MEDICAID, SELFPAY ==
[2022-11-21 14:54] LABS: Alanine Aminotransferase 54 U/L (0-40); Albumin Level 2.7 g/dL (3.5-5.0); Alkaline Phosphatase 270 U/L (39-117); Anion Gap 13 (12-20); Aspartate Amino Transferase 94 U/L (5-37); Bilirubin Total 1.7 mg/dL (0.0-1.0); Blood Urea Nitrogen 10 mg/dL (9-16); Calcium 8.6 mg/dL (8.4-10.2); Carbon Dioxide 23 mmol/L (22-29); Chloride 101 mmol/L (96-108); Estimated Glomerular Filt Rate > 60; Glucose Random 281 mg/dL (60-115); Potassium 4.2 mmol/L (3.3-5.1); Sodium 133 mmol/L (135-145); Total Protein 7.7 g/dL (6.5-8.0)
== END 2022-11-21 12:52 | disposition home or self-care (01) ==
LOC: HO.LAB 12:51
PROVIDERS: PCP Internal Medicine; Visit Provider Internal Medicine
DX: K70.31 Alcoholic cirrhosis of liver with ascites (principal)
CPT/HCPCS: 36415; 80053

== ENCOUNTER 2022-12-03 14:25 | Outpatient (REF) | payer OTHER, MEDICAID, SELFPAY ==
[2022-12-03 14:41] LABS: MANUAL DIFF FLAG NO
[2022-12-03 14:48] LABS: Basophils Percent Auto 0.8 % (0-2); Eosinophils Absolute Auto 0.2 X10*3/uL (0.0-0.4); Eosinophils Percent Auto 3.4 % (0-4); Hemoglobin 12.4 g/dl (14.0-18.0); Imm Gran Abs Auto 0.01 X10*3/uL (0.00-0.03); Imm Gran Pct Auto 0.2 % (0.0-0.4); Lymphocytes Absolute Auto 0.7 X10*3/uL (1.2-4.9); Lymphocytes Percent Auto 13.2 % (20-40); Mean Corpuscular HGB Conc 35.4 g/dl (31.0-36.0); Mean Corpuscular Hemoglobin 30.7 pg (27.0-33.0); Mean Corpuscular Volume 86.6 fL (80.0-98.0); Mean Platelet Volume 10.4 fL (9.4-12.4); Monocytes Absolute Auto 0.5 X10*3/uL (0.1-1.2); Monocytes Percent Auto 10.3 % (2-11); Neutrophils Absolute Auto 3.7 x10*3/uL (2.0-8.3); Neutrophils Percent Auto 72.1 % (45-73); Platelet Count 106 X10*3/uL (160-400); Red Blood Count 4.04 X10*6/uL (4.60-5.80); Red Cell Distribution Width 14.3 % (11.0-16.0); White Blood Count 5.1 X10*3/uL (4.8-10.8)
[2022-12-03 14:55] LABS: Ammonia 52 umol/L (13-55)
[2022-12-03 15:00] LABS: INTERNATIONAL NORM RATIO 1.3 (0.9-1.1)
[2022-12-03 15:02] LABS: Partial Thromboplastin Time 35.7 SEC (26.0-36.4)
[2022-12-03 15:09] LABS: Alanine Aminotransferase 37 U/L (0-40); Albumin Level 2.8 g/dL (3.5-5.0); Alkaline Phosphatase 243 U/L (39-117); Anion Gap 12 (12-20); Aspartate Amino Transferase 62 U/L (5-37); Bilirubin Direct 0.7 mg/dL (0.0-0.5); Bilirubin Total 1.9 mg/dL (0.0-1.0); Blood Urea Nitrogen 9 mg/dL (9-16); Calcium 9.1 mg/dL (8.4-10.2); Carbon Dioxide 27 mmol/L (22-29); Chloride 99 mmol/L (96-108); Estimated Glomerular Filt Rate > 60; Glucose Random 343 mg/dL (60-115); Potassium 3.2 mmol/L (3.3-5.1); Sodium 135 mmol/L (135-145); Total Protein 7.3 g/dL (6.5-8.0)
== END 2022-12-03 14:26 | disposition home or self-care (01) ==
LOC: HO.LAB 14:25
PROVIDERS: Visit Provider Internal Medicine
DX: K70.31 Alcoholic cirrhosis of liver with ascites (principal)
CPT/HCPCS: 36415; 80048; 80076; 82140; 85025; 85610; 85730

== ENCOUNTER 2022-12-04 11:48 | Emergency (ER) | payer OTHER, SELFPAY ==
--- NOTE | ~2022-12-04 | CT_ITS ---
EXAMINATION: CT ABDOMEN AND PELVIS WITH CONTRAST CLINICAL INFORMATION: Severe abdominal pain. COMPARISON: 09/09/2022 TECHNIQUE: Multidetector volumetric images were obtained from the superior aspect of the liver through the pubic symphysis following administration 85 mL of Omnipaque 350 intravenous contrast. Sagittal and coronal reformatted images were obtained on the technologist's workstation. Oral contrast: No This CT examination was performed using dose optimization techniques as appropriate, variously including the following: *Automated exposure control *Adjustment of mA and/or kV according to patient size (this includes techniques or standardized protocols for targeted exams where dose is matched to indication/reason for exam; i.e. extremities or head) *Use of iterative reconstruction technique DLP: 427 mGy-cm FINDINGS: LUNG BASES: No pleural or pericardial effusion. LIVER, GALLBLADDER, AND BILIARY TREE: Liver morphology consistent with cirrhosis. There are upstream and downstream varices. No focal hepatic lesion. No biliary ductal dilatation. Gallbladder wall edema. PANCREAS: No ductal dilatation. SPLEEN: Enlarged. ADRENAL GLANDS: Possible left adrenal thickening. KIDNEYS AND URETERS: The kidneys are symmetric in size and enhancement. No hydronephrosis or perinephric stranding. BLADDER: Unremarkable. GASTROINTESTINAL TRACT: Small bowel wall thickening in the lower abdomen. No small bowel obstruction. Appendix is within normal limits. Small to moderate ascites. ABDOMINAL WALL: Umbilical hernia containing fat measuring 4.0 x 3.4 cm. The neck of the hernia measures 1.5 cm. LYMPH NODES: Several enlarged retroperitoneal lymph nodes. VASCULAR: Normal caliber abdominal aorta. There are gastric and splenic varices. The main portal vein is decreased in caliber. PELVIC VISCERA: The prostate gland and seminal vesicles are unremarkable. OSSEOUS STRUCTURES: No destructive bone lesions. CT/CT abdomen pelvis w IV con IMPRESSION: Hepatic cirrhosis. Findings of portal hypertension with varices, splenomegaly, small to moderate ascites. Small bowel wall thickening possibly on a reactive basis. Enteritis cannot be excluded. Advise clinical correlation.
--- NOTE | 2022-12-04 11:55 | ED.ABDPAIN ---
HPI - Abdominal Pain General Chief Complaint: Abdominal Pain Stated Complaint: abd pain Time Seen by Provider: 12/04/22 12:37 Source: patient and family Mode of arrival: ambulatory Limitations: no limitations History of Present Illness HPI narrative: 57-year-old male with history of liver cirrhosis presents with persistent abdominal pain, decreased appetite for 6 days. He has had approximately 9 lb weight loss during the same period time. Denies any fevers or chills. Patient reports the pain is generalized in his a 10/10. There is no clear relieving or exacerbating features. The pain is described as sharp, achy, crampy, heavy, pressure, burning. The pain does not radiate. Pain is different than when he has ascites. Related Data Home Medications Medication Instructions Recorded Confirmed atorvastatin 20 mg tablet 20 mg PO DAILY 06/29/20 10/19/22 hydroxyzine HCl 25 mg tablet 25 mg PO TID PRN itch 09/09/22 10/19/22 insulin glargine-yfgn 100 unit/mL 45 unit subcut BID 09/09/22 10/19/22 (3 mL) subcutaneous pen (Semglee (insulin glargine-yfgn) Pen) spironolactone 50 mg tablet 50 mg PO BEDTIME 09/09/22 10/19/22 trazodone 50 mg tablet 50 mg PO BEDTIME PRN insomnia 09/09/22 10/19/22 furosemide 20 mg tablet 20 mg PO DAILY 10/03/22 10/19/22 glipizide 2.5 mg tablet, extended 2.5 mg PO DAILY 10/03/22 10/19/22 release 24 hr nadolol 20 mg tablet 20 mg PO DAILY 10/03/22 10/19/22 pantoprazole 40 mg tablet,delayed 40 mg PO DAILY@0630 10/03/22 10/19/22 release semaglutide 2 mg/dose (8 mg/3 mL) 2 mg subcut Q7D 10/03/22 10/19/22 subcutaneous pen injector (Ozempic) insulin lispro 100 unit/mL See Rx Instructions .Route .COMPLEX 10/19/22 10/19/22 subcutaneous pen (Humalog KwikPen (U-100) Insulin) Previous Rx's Medication Instructions Recorded ferrous sulfate 325 mg (65 mg 325 mg PO BID #60 tabs 09/12/22 iron) tablet lactulose 20 gram/30 mL oral 20 g (30 mL) PO BID #2,880 mL 10/04/22 solution rifaximin 550 mg tablet (Xifaxan) 550 mg PO BID #60 tabs 10/04/22 Allergies Allergy/AdvReac Type Severity Reaction Status Date / Time codeine [CODEINE] Allergy Mild ITCHINESS, Verified 12/04/22 12:06 itching penicillin G Allergy Mild itching Verified 12/04/22 12:06 Review of Systems Review of Systems CONSTITUTIONAL: Denies weight loss, fever and chills. HEENT: Denies changes in vision and hearing. RESPIRATORY: Denies SOB and cough. CV: Denies palpitations no CP. GI: See HPI : Denies dysuria and urinary frequency. MSK: Denies myalgia and joint pain. SKIN: Denies rash and pruritus. NEUROLOGICAL: Denies headache and syncope. PSYCHIATRIC: Denies recent changes in mood. Denies anxiety and depression. All other ROS are negative unless in HPI PMFSH Past Medical History Medical History Abdominal ascites Black stools Chronic hyponatremia Cirrhosis Cirrhosis of liver Diabetes Elevated cholesterol Hepatitis History of alcohol abuse HTN (hypertension) Myocardial infarction Normocytic anemia Varices, esophageal Surgical History H/O colonoscopy History of esophagogastroduodenoscopy (EGD) History of PTCA Hx of hand surgery Social History Social History Household Members: Family Housing: House Do you presently have visiting nurse or other home services: No Unable to assess alcohol history related to: Unable to respond Alcohol intake: former Patient Tobacco Use Status: Former Tobacco user Quit Date: 2013 Tobacco use type: Cigarette Smoked in Last 30 Days: No Second Hand Smoke Exposure: No Use of substances other than those prescribed or required for medical reasons: No Advance Directives: Yes Advance Directives on File: Yes Advance Directives Date on File: 09/13/22 service: Yes Current occupational status: disabled Physical Exam ED Vital Signs: Vital Signs - 24 hr 12/04/22 11:57 12/04/22 13:13 12/04/22 14:44 Temperature 97.3 F 97.9 F 98.0 F Pulse Rate 84 82 83 Respiratory Rate 16 16 20 Blood Pressure 115/72 108/65 96/66 Pulse Oximetry 100 100 99 Oxygen Delivery Method Room Air Room Air Room Air BMI result Body Mass Index 23.5 GEN: Well developed, no acute distress, alert, oriented HEENT: Normocephalic, atraumatic, normal external ears, nose appears normal, no oropharyngeal edema or exudates Eyes: Normal to appearance Neck: Supple, no lymphadenopathy Respiratory: Talks in complete sentences, no respiratory distress, clear to auscultation bilaterally Cardiovascular: Regular rate and rhythm, no murmurs rubs or gallops Abdomen: Soft, nontender, nondistended, no guarding, no rebound Back: No CVA tenderness Extremities: No clubbing cyanosis or edema Neurologic: No focal neurologic deficits, cranial nerves 2-12 intact, strength is 5/5 bilaterally Skin: No rash Course Course Course Narrative: RME: 57yo M w/PMHx cirrhosis on transplant list, hepatitis, HTN, [place], abdominal hernia c/o lower abdominal/periumbilical abdominal pain x6 days. denies N/V +periumbilcal abdominal hernia noted, reducible, ttp, no appreciable ascites. no rebound or guarding Patient had outpatient labs yesterday with normal ammonia level. Spoke with Dr. Zuluaga in triage Labs including lactic, UA ordered Full HPI, ROS and PE to be performed by primary ED provider. Reevaluation(s) Reevaluation #1: Sent tiger text to patient's research associate molecular biology for further guidance. This point, I do not see a clear indication for hospitalization. There is no evidence SBO or ileus. Patient is well-appearing. There are no significant acute abnormalities of lab testing. Will discuss this with the patient at this time. Time: 15:38 Reevaluation #2: Dr. Zuluaga responded can be discharged with follow up. Discussed treatment of constipation Time: 16:03 Medical Decision Making Medical Decision Making MDM Narrative: 57-year-old male presents with abdominal pain. Examination is benign. There is no evidence of ascites. There is a reducible umbilical hernia. Since his pain is severe, non described, patient have a CT scan the abdomen pelvis rule out a plethora of differential diagnoses. These differentials include abdominal pain, IBS, IBD, colitis, diverticulitis, doubt AAA, dissection. Re-evaluate the patient frequent. He will have routine laboratory analysis and imaging studies. Differential Diagnosis Differential Diagnoses: The differential diagnosis associated with the presentation includes (See above) Admission/Observation Consideration of admission/observation: Escalation of care including admission/observation considered Consult Healthcare Provider Management of the patient was discussed with: Imitation Marble Mechanic (ADRIANO) Lab Data MDM Lab Attestation statement: I reviewed the patient's lab results. 12/04/22 12:15 12/04/22 12:15 Labs: Lab Results 12/04/22 12/04/22 12/04/22 Range/Units 12:15 12:15 12:15 WBC 5.3 (4.8-10.8) X10*3/uL RBC 3.96 L (4.60-5.80) X10*6/uL Hgb 12.2 L (14.0-18.0) g/dl Hct 34.4 L (42.0-52.0) % MCV 86.9 (80.0-98.0) fL MCH 30.8 (27.0-33.0) pg MCHC 35.5 (31.0-36.0) g/dl RDW 14.3 (11.0-16.0) % Plt Count 93 L (160-400) X10*3/uL MPV 10.3 (9.4-12.4) fL Immature Gran % (Auto) 0.4 (0.0-0.4) % Neut % (Auto) 72.0 (45-73) % Lymph % (Auto) 13.3 L (20-40) % [place] % (Auto) 10.5 (2-11) % Eos % (Auto) 3.2 (0-4) % Baso % (Auto) 0.6 (0-2) % Lymph # (Auto) 0.7 L (1.2-4.9) X10*3/uL [place] # (Auto) 0.6 (0.1-1.2) X10*3/uL Eos # (Auto) 0.2 (0.0-0.4) X10*3/uL Baso # (Auto) 0.0 (0.0-0.2) X10*3/uL Abs Immat Gran (auto) 0.02 (0.00-0.03) X10*3/uL Absolute Neuts (auto) 3.8 (2.0-8.3) x10*3/uL Absolute Nucleated RBC 0.000 (0.0-0.012) X10*3/uL Nucleated RBC % (auto) 0.0 (0.0-0.2) /100WBC PT 14.8 H (10.0-13.1) SEC INR 1.3 H (0.9-1.1) Sodium 134 L (135-145) mmol/L Potassium 3.7 (3.3-5.1) mmol/L Chloride 100 (96-108) mmol/L Carbon Dioxide 26 (22-29) mmol/L Anion Gap 12 (12-20) BUN 9 (9-16) mg/dL Creatinine 1.17 (0.5-1.4) mg/dL Estim Creat Clear Calc 56.9 Estimated GFR > 60 Random Glucose 411 H* (60-115) mg/dL Lactic Acid (0.5-2.0) mmol/L Calcium 9.1 (8.4-10.2) mg/dL Magnesium 2.1 (1.6-2.6) mg/dL Total Bilirubin 1.6 H (0.0-1.0) mg/dL Direct Bilirubin 0.7 H (0.0-0.5) mg/dL AST 66 H (5-37) U/L ALT 36 (0-40) U/L Alkaline Phosphatase 241 H (39-117) U/L Ammonia (13-55) umol/L Total Protein 7.3 (6.5-8.0) g/dL Albumin 2.7 L (3.5-5.0) g/dL Lipase 45 (8-78) U/L Urine Color Urine Appearance Urine pH (5.0-9.0) Ur Specific [place] (1.005-1.025) Urine Protein (Neg-Trace) mg/dL Urine Glucose (UA) (Negative) mg/dL Urine Ketones (Negative) mg/dL Urine Blood (Negative) Urine Nitrite (Negative) Ur Leukocyte Esterase (Negative) Urine RBC (0-2) /HPF Urine WBC (0-5) /HPF Ur Squamous Epith Cells (0-2) /HPF Urine Bacteria (None Seen) Hyaline Casts (0-2) /LPF 12/04/22 12/04/22 12/04/22 Range/Units 12:15 12:37 13:10 WBC (4.8-10.8) X10*3/uL RBC (4.60-5.80) X10*6/uL Hgb (14.0-18.0) g/dl Hct (42.0-52.0) % MCV (80.0-98.0) fL MCH (27.0-33.0) pg MCHC (31.0-36.0) g/dl RDW (11.0-16.0) % Plt Count (160-400) X10*3/uL MPV (9.4-12.4) fL Immature Gran % (Auto) (0.0-0.4) % Neut % (Auto) (45-73) % Lymph % (Auto) (20-40) % [place] % (Auto) (2-11) % Eos % (Auto) (0-4) % Baso % (Auto) (0-2) % Lymph # (Auto) (1.2-4.9) X10*3/uL [place] # (Auto) (0.1-1.2) X10*3/uL Eos # (Auto) (0.0-0.4) X10*3/uL Baso # (Auto) (0.0-0.2) X10*3/uL Abs Immat Gran (auto) (0.00-0.03) X10*3/uL Absolute Neuts (auto) (2.0-8.3) x10*3/uL Absolute Nucleated RBC (0.0-0.012) X10*3/uL Nucleated RBC % (auto) (0.0-0.2) /100WBC PT (10.0-13.1) SEC INR (0.9-1.1) Sodium (135-145) mmol/L Potassium (3.3-5.1) mmol/L Chloride (96-108) mmol/L Carbon Dioxide (22-29) mmol/L Anion Gap (12-20) BUN (9-16) mg/dL Creatinine (0.5-1.4) mg/dL Estim Creat Clear Calc Estimated GFR Random Glucose (60-115) mg/dL Lactic Acid 2.4 H* (0.5-2.0) mmol/L Calcium (8.4-10.2) mg/dL Magnesium (1.6-2.6) mg/dL Total Bilirubin (0.0-1.0) mg/dL Direct Bilirubin (0.0-0.5) mg/dL AST (5-37) U/L ALT (0-40) U/L Alkaline Phosphatase (39-117) U/L Ammonia 75 H (13-55) umol/L Total Protein (6.5-8.0) g/dL Albumin (3.5-5.0) g/dL Lipase (8-78) U/L Urine Color Yellow Urine Appearance Clear Urine pH 5.5 (5.0-9.0) Ur Specific [place] 1.020 (1.005-1.025) Urine Protein Negative (Neg-Trace) mg/dL Urine Glucose (UA) >=1000 H (Negative) mg/dL Urine Ketones Negative (Negative) mg/dL Urine Blood Negative (Negative) Urine Nitrite Negative (Negative) Ur Leukocyte Esterase Negative (Negative) Urine RBC 0-2 (0-2) /HPF Urine WBC 0-5 (0-5) /HPF Ur Squamous Epith Cells 0-2 (0-2) /HPF Urine Bacteria None Seen (None Seen) Hyaline Casts 0-2 (0-2) /LPF Independent Interpretation I performed an independent interpretation of an: CT Scan (Abdomen pelvis: Likely constipation, possible small-bowel obstruction versus ileus) Radiology Impression Discussion of test interpretation with radiology: I have reviewed the radiologist's reading. Radiologist Impression: CT/CT abdomen pelvis w IV con IMPRESSION: Hepatic cirrhosis. Findings of portal hypertension with varices, splenomegaly, small to moderate ascites. ? Small bowel wall thickening possibly on a reactive basis. Enteritis cannot be excluded. Advise clinical correlation. Dictated By: Brandy Christina MD Signed By: <Electronically signed by Brandy Christina MD in OV> 12/04/22 3255 Independent Historian Clinical information obtained from an independent historian. History obtained from or confirmed by: Spouse External Record Review External record reviewed: Office record Prescription Management I considered prescription management with: Pain Medication Medications Administered Discontinued Medications Generic Name Dose Route Start Last Admin Trade Name Freq PRN Reason Stop Dose Admin Sodium Chloride 500 mls @ 500 mls/hr 12/04/22 13:15 12/04/22 15:30 Ns IV 12/04/22 14:14 Infused .Q1H IVELISSE Infusion Insulin Human Lispro 10 unit 12/04/22 12:57 12/04/22 13:03 Insulin Lispro 100 Unit/Ml 3 Ml Vial SUBCUT 12/04/22 12:58 10 unit ONCE ONE Administration Iohexol 100 ml 12/04/22 13:43 12/04/22 13:43 Iohexol 350 Mg/Ml 100 Ml Infus..Btl IV 12/04/22 13:44 85 ml ONCE ONE Administration Morphine Sulfate 2 mg 12/04/22 12:46 12/04/22 13:04 Morphine Sulfate 4 Mg/Ml Cartridge IVPUSH 12/04/22 12:47 2 mg ONCE ONE Administration Protocol Discharge Plan Discharge Clinical Impression: Abdominal pain, Hyperglycemia due to diabetes mellitus, Chronic liver disease Patient Disposition: Home, Self-Care Instructions: Liver Disease Diet (DC), Abdominal Pain (ED) Prescriptions: No Action atorvastatin 20 mg tablet 20 mg PO DAILY trazodone 50 mg tablet 50 mg PO BEDTIME PRN (Reason: insomnia) hydroxyzine HCl 25 mg tablet 25 mg PO TID PRN (Reason: itch) spironolactone 50 mg tablet 50 mg PO BEDTIME insulin glargine-yfgn [Semglee(insulin glarg-yfgn)Pen] 100 unit/mL (3 mL) insulin pen 45 unit subcut BID ferrous sulfate 325 mg (65 mg iron) tablet 325 mg PO BID Qty: 60 0RF nadolol 20 mg tablet 20 mg PO DAILY glipizide 2.5 mg tablet extended release 24hr 2.5 mg PO DAILY pantoprazole 40 mg tablet,delayed release (DR/EC) 40 mg PO DAILY@0630 Ozempic 2 mg/dose (8 mg/3 mL) pen injector 2 mg subcut Q7D furosemide 20 mg tablet 20 mg PO DAILY Xifaxan 550 mg Tablet 550 mg PO BID Qty: 60 0RF lactulose 20 gram/30 mL solution 20 g PO BID Qty: 2880 0RF insulin lispro [Humalog KwikPen Insulin] 100 unit/mL insulin pen See Rx Instructions .ROUTE .COMPLEX Rx Instructions: SLIDING SCALE Referrals: Maverick Zuluaga [Physician] -
[2022-12-04 11:57] VITALS: BP 115/72; PULSE 84; RESP 16; TEMP 36.3; O2SAT 100; BMI 23.5
[2022-12-04 12:33] LABS: MANUAL DIFF FLAG NO
[2022-12-04 12:37] LABS: Basophils Percent Auto 0.6 % (0-2); Eosinophils Absolute Auto 0.2 X10*3/uL (0.0-0.4); Eosinophils Percent Auto 3.2 % (0-4); Hematocrit 34.4 % (42.0-52.0); Hemoglobin 12.2 g/dl (14.0-18.0); Imm Gran Abs Auto 0.02 X10*3/uL (0.00-0.03); Imm Gran Pct Auto 0.4 % (0.0-0.4); Lymphocytes Absolute Auto 0.7 X10*3/uL (1.2-4.9); Lymphocytes Percent Auto 13.3 % (20-40); Mean Corpuscular HGB Conc 35.5 g/dl (31.0-36.0); Mean Corpuscular Hemoglobin 30.8 pg (27.0-33.0); Mean Corpuscular Volume 86.9 fL (80.0-98.0); Mean Platelet Volume 10.3 fL (9.4-12.4); Monocytes Absolute Auto 0.6 X10*3/uL (0.1-1.2); Monocytes Percent Auto 10.5 % (2-11); Neutrophils Absolute Auto 3.8 x10*3/uL (2.0-8.3); Red Blood Count 3.96 X10*6/uL (4.60-5.80); Red Cell Distribution Width 14.3 % (11.0-16.0); White Blood Count 5.3 X10*3/uL (4.8-10.8)
[2022-12-04 12:38] LABS: Platelet Count 93 X10*3/uL (160-400)
[2022-12-04 12:39] LABS: INTERNATIONAL NORM RATIO 1.3 (0.9-1.1); Prothrombin Time 14.8 SEC (10.0-13.1)
[2022-12-04 12:58] LABS: Ammonia 75 umol/L (13-55)
[2022-12-04 12:58] LABS: Alanine Aminotransferase 36 U/L (0-40); Albumin Level 2.7 g/dL (3.5-5.0); Alkaline Phosphatase 241 U/L (39-117); Anion Gap 12 (12-20); Aspartate Amino Transferase 66 U/L (5-37); Bilirubin Direct 0.7 mg/dL (0.0-0.5); Bilirubin Total 1.6 mg/dL (0.0-1.0); Blood Urea Nitrogen 9 mg/dL (9-16); Calcium 9.1 mg/dL (8.4-10.2); Carbon Dioxide 26 mmol/L (22-29); Chloride 100 mmol/L (96-108); Creatinine Clr Calc Pharmacy 56.9; Estimated Glomerular Filt Rate > 60; Glucose Random 411 mg/dL (60-115); Lactic Acid 2.4 mmol/L (0.5-2.0); Lipase 45 U/L (8-78); Magnesium 2.1 mg/dL (1.6-2.6); Potassium 3.7 mmol/L (3.3-5.1); Sodium 134 mmol/L (135-145); Total Protein 7.3 g/dL (6.5-8.0)
[2022-12-04] MEDS: Insulin Lispro 100 UNIT/ML 3 ML VIAL 10 UNIT SUBCUT (13:03)
[2022-12-04] MEDS: Morphine Sulfate 4 MG/ML CARTRIDGE 2 MG IVPUSH (13:04)
[2022-12-04 13:13] VITALS: BP 108/65; PULSE 82; RESP 16; TEMP 36.6; O2SAT 100
[2022-12-04] MEDS: 0.9 % Sodium Chloride 500 ML IV (13:17)
[2022-12-04 13:43] LABS: Appearance Urine Clear; Color Urine Yellow; Glucose Urine UA >=1000 mg/dL (Negative); Leukocyte Esterase Urine Negative (Negative); Nitrite Urine Negative (Negative); PH 5.5 (5.0-9.0); UMIC TRIGGER UACC YES; Urine Blood Negative (Negative); Urine Ketones Negative (Negative); Urine Protein Negative (Neg-Trace)
[2022-12-04] MEDS: iohexoL 350 MG/ML 100 ML INFUS..BTL IV (13:43)
[2022-12-04 13:48] LABS: Bacteria Urine None Seen (None Seen); Hyaline Casts Urine 0-2 /LPF (0-2); RBC Urine 0-2 /HPF (0-2); Squamous Epithelial Cell Urine 0-2 /HPF (0-2); WBC Urine 0-5 /HPF (0-5)
[2022-12-04 14:30] LABS: Reflex Lactate? Lactic Acid Added
[2022-12-04 14:44] VITALS: BP 96/66; PULSE 83; RESP 20; TEMP 36.7; O2SAT 99
== END 2022-12-04 16:18 | disposition home or self-care (01) ==
PROVIDERS: Physician Assistant; Emergency Provider Emergency Medicine; PCP Physician Assistant Medical
DX: K76.9 Liver disease, unspecified (principal); R10.9 Unspecified abdominal pain; E11.65 Type 2 diabetes mellitus with hyperglycemia; I10 Essential (primary) hypertension; K74.60 Unspecified cirrhosis of liver; B19.20 Unspecified viral hepatitis C without hepatic coma; K42.9 Umbilical hernia without obstruction or gangrene; F10.10 Alcohol abuse, uncomplicated; R63.0 Anorexia; Z68.23 Body mass index [BMI] 23.0-23.9, adult; Z79.4 Long term (current) use of insulin; Z79.899 Other long term (current) drug therapy; Z87.891 Personal history of nicotine dependence
CPT/HCPCS: 36415; 74177; 80048; 80076; 81001; 82140; 83605; 83690; 83735; 85025; 85610; 96361; 96374; 99284; J2270; Q9967

== ENCOUNTER 2022-12-20 16:30 | Outpatient (REF) | payer OTHER, SELFPAY ==
[2022-12-20 17:53] LABS: INTERNATIONAL NORM RATIO 1.2 (0.9-1.1); Prothrombin Time 14.3 SEC (10.0-13.1)
[2022-12-20 18:20] LABS: Alanine Aminotransferase 55 U/L (0-40); Albumin Level 2.9 g/dL (3.5-5.0); Alkaline Phosphatase 271 U/L (39-117); Anion Gap 12 (12-20); Aspartate Amino Transferase 105 U/L (5-37); Bilirubin Total 1.7 mg/dL (0.0-1.0); Blood Urea Nitrogen 11 mg/dL (9-16); Calcium 9.1 mg/dL (8.4-10.2); Carbon Dioxide 26 mmol/L (22-29); Chloride 97 mmol/L (96-108); Estimated Glomerular Filt Rate > 60; Glucose Random 299 mg/dL (60-115); Sodium 131 mmol/L (135-145); Total Protein 7.5 g/dL (6.5-8.0)
== END 2022-12-20 16:31 | disposition home or self-care (01) ==
LOC: HO.LAB 16:30
PROVIDERS: Internal Medicine Infectious Disease; PCP Physician Assistant Medical; Referring Provider Internal Medicine; Visit Provider Nurse Practitioner Acute Care
DX: B19.20 Unspecified viral hepatitis C without hepatic coma (principal); K70.30 Alcoholic cirrhosis of liver without ascites; Z76.82 Awaiting organ transplant status
CPT/HCPCS: 36415; 80053; 85610

== ENCOUNTER 2022-12-26 18:51 | Emergency (ER) | payer OTHER, SELFPAY ==
[2022-12-26 19:04] VITALS: BP 127/77; PULSE 87; RESP 18; TEMP 36.2; O2SAT 99; BMI 22.2
--- NOTE | 2022-12-26 19:04 | ED_ITS ---
HPI - General Adult General Chief complaint: Altered Mental Status Stated complaint: slight confusion Time Seen by Provider: 12/26/22 22:15 Source: patient, family (Patient's son and daughter), RN notes reviewed and old records reviewed Mode of arrival: ambulatory Limitations: no limitations History of Present Illness HPI narrative: 57-year-old male past medical history significant for diabetes, history of hepatic encephalopathy related to liver disease, hepatitis-C presents for evaluation of ?confusion. ? Patient's daughter states that she is heavily involved in the patient's care. He has been doing quite well for approximately the last month He takes 20 g of lactulose 3 times a day The patient has had somewhat decreased bowel movements but is still having at least 1 bowel movement daily He has been complaining of abdominal pain in the area of a periumbilical hernia Denies any fevers, chills, nausea vomiting, diarrhea, cough He has had approximately 10 lb weight loss the last couple of weeks per his daughter His belly does not seem distended per his daughter The patient offers no complaints except for abdominal pain He does not believe that he is confused at this time Related Data Home Medications Medication Instructions Recorded Confirmed atorvastatin 20 mg tablet 20 mg PO DAILY 06/29/20 12/27/22 hydroxyzine HCl 25 mg tablet 25 mg PO TID PRN itch 09/09/22 10/19/22 insulin glargine-yfgn 100 unit/mL 45 unit subcut BID 09/09/22 10/19/22 (3 mL) subcutaneous pen (Semglee (insulin glargine-yfgn) Pen) spironolactone 50 mg tablet 50 mg PO BEDTIME 09/09/22 10/19/22 trazodone 50 mg tablet 50 mg PO BEDTIME PRN insomnia 09/09/22 10/19/22 furosemide 20 mg tablet 20 mg PO DAILY 10/03/22 12/27/22 glipizide 2.5 mg tablet, extended 2.5 mg PO DAILY 10/03/22 10/19/22 release 24 hr nadolol 20 mg tablet 20 mg PO DAILY 10/03/22 10/19/22 pantoprazole 40 mg tablet,delayed 40 mg PO DAILY@0630 10/03/22 10/19/22 release semaglutide 2 mg/dose (8 mg/3 mL) 2 mg subcut Q7D 10/03/22 10/19/22 subcutaneous pen injector (Ozempic) insulin lispro 100 unit/mL See Rx Instructions .Route .COMPLEX 10/19/22 12/27/22 subcutaneous pen (Humalog KwikPen (U-100) Insulin) gabapentin 300 mg capsule 300 mg PO QPM 12/27/22 12/27/22 nadolol 20 mg tablet 20 mg PO DAILY 12/27/22 12/27/22 Previous Rx's Medication Instructions Recorded ferrous sulfate 325 mg (65 mg 325 mg PO BID #60 tabs 09/12/22 iron) tablet lactulose 20 gram/30 mL oral 20 g (30 mL) PO BID #2,880 mL 10/04/22 solution rifaximin 550 mg tablet (Xifaxan) 550 mg PO BID #60 tabs 10/04/22 Allergies Allergy/AdvReac Type Severity Reaction Status Date / Time codeine [CODEINE] Allergy Mild ITCHINESS, Verified 12/26/22 19:04 itching penicillin G Allergy Mild itching Verified 12/26/22 19:04 Review of Systems 2 Constitutional: Constitutional: Denies chills, Denies fever(s), Reports weakness and Reports weight loss Cardiovascular: Cardiovascular: Denies chest pain and Denies dyspnea Respiratory: Respiratory: Denies cough and Denies dyspnea Gastrointestinal: Gastrointestinal: Reports abdominal pain, Denies constipation, Denies nausea and Denies vomiting Genitourinary: Genitourinary: Denies dysuria Integumentary/Breasts: Skin/Breast: Denies rash Neurologic: Reports confusion and Reports weakness Psychiatric: Psychiatric: Reports confusion COUNT INCLUDES THE [facility] Past Medical History Medical History Abdominal ascites Black stools Chronic hyponatremia Cirrhosis Cirrhosis of liver Diabetes Elevated cholesterol Hepatitis History of alcohol abuse HTN (hypertension) Myocardial infarction Normocytic anemia Varices, esophageal Surgical History H/O colonoscopy History of esophagogastroduodenoscopy (EGD) History of PTCA Hx of hand surgery Social History Social History Household Members: Family Housing: House Do you presently have visiting nurse or other home services: No Unable to assess alcohol history related to: Unable to respond Alcohol intake: former Patient Tobacco Use Status: Former Tobacco user Quit Date: 2013 Tobacco use type: Cigarette Smoked in Last 30 Days: No Second Hand Smoke Exposure: No Use of substances other than those prescribed or required for medical reasons: No Advance Directives: Yes Advance Directives on File: Yes Advance Directives Date on File: 09/13/22 service: Yes Current occupational status: disabled Physical Exam ED Vital Signs: Vital Signs - 24 hr 12/26/22 19:04 12/26/22 22:16 12/27/22 06:05 Temperature 97.1 F Pulse Rate 87 84 Respiratory Rate 18 16 14 Blood Pressure 127/77 125/87 Pulse Oximetry 99 98 98 Oxygen Delivery Method Room Air Room Air Room Air 12/27/22 08:35 12/27/22 08:44 Temperature 97.9 F Pulse Rate 95 95 Respiratory Rate 18 Blood Pressure 108/73 108/73 Pulse Oximetry 97 97 Oxygen Delivery Method Room Air BMI result Body Mass Index 22.2 Const General: comfortable, no acute distress, alert, awake and confusion; No lethargic Nutritional Appearance: well nourished Orientation/consciousness: patient oriented x3, confusion and No lethargic HENMT Head: Yes normocephalic and Yes atraumatic Eyes Eyelids: Yes eyelids normal Conjunctivae: conjunctivae normal Sclerae: sclerae normal Corneas: corneas normal Pupils: Equal, round and reactive pupils present EOM: EOMs intact bilaterally Neck Neck: Yes full ROM Resp Effort & Inspection: normal respiratory effort, able to speak in complete sentences and not labored GI Other: Umbilical hernia that is reducible very easily. No surrounding skin changes Inspection: No distended Palpation (GI): Soft to palpation, not firm, nontender, no guarding and not r igid Auscultation: normoactive bowel sounds Skin General skin exam: elasticity normal Neuro General: patient oriented x3 and confusion Cranial nerves: Yes CN's II-XII intact bilaterally, Yes Equal, round and reactive pupils present and Yes Bilaterally intact EOM present Cognition (Neuro): normal cognition Extrem Other: Moving all extremities well without any obvious deformities Course Course Course Narrative: This is an RME: Additional HPI, ROS, PE not included below will be deferred to primary provider. 57 old male with a history of diabetes, liver failure currently on the transplant list, hepatic encephalopathy, accompanied by daughter, Agatha, presenting to the ER, for evaluation of increased confusion. Daughter report Reevaluation(s) Reevaluation #1: Presents in observation continued. Patient is not in any distress. Vital signs stable. Patient at baseline mentally. Patient evaluated by Case Management Rosario. Patient will be going home with VNA services. Family member picked up the patient. Medications Administered Generic Name Dose Route Start Last Admin Trade Name Freq PRN Reason Stop Dose Admin Atorvastatin Calcium 20 mg 12/27/22 09:00 12/27/22 08:21 Atorvastatin Calcium 20 Mg Tablet PO 20 mg DAILY IVELISSE Administration Ferrous Sulfate 324 mg 12/27/22 09:00 12/27/22 08:22 Ferrous Sulfate 324 Mg Tablet.Dr PO 324 mg BID IVELISSE Administration Furosemide 20 mg 12/27/22 09:00 12/27/22 08:21 Furosemide 20 Mg Tablet PO 20 mg DAILY IVELISSE Administration Protocol Gabapentin 300 mg 12/27/22 00:30 12/27/22 02:09 Gabapentin 300 Mg Capsule PO Not Given BEDTIME [facility] Insulin Human Lispro 0 unit 12/27/22 07:30 12/27/22 07:26 Insulin Lispro 100 Unit/Ml 3 Ml Vial SUBCUT 2 unit QIDACHS IVELISSE Administration Protocol Lactulose 30 gm 12/27/22 09:00 12/27/22 08:20 Lactulose 20 Gm/30 Ml Solution PO 30 gm TID IVELISSE Administration Nadolol 20 mg 12/27/22 09:00 12/27/22 08:40 Nadolol 20 Mg Tablet PO 20 mg DAILY IVELISSE Administration Protocol Discontinued Medications Generic Name Dose Route Start Last Admin Trade Name Freq PRN Reason Stop Dose Admin Lactulose 10 gm 12/26/22 23:11 12/26/22 23:23 Lactulose 20 Gm/30 Ml Solution PO 12/26/22 23:12 10 gm ONCE ONE Administration Lactulose 20 gm 12/26/22 23:11 12/26/22 23:23 Lactulose 20 Gm/30 Ml Solution PO 12/26/22 23:12 20 gm ONCE ONE Administration Tramadol HCl 50 mg 12/26/22 23:11 12/26/22 23:23 Tramadol Hcl 50 Mg Tablet PO 12/26/22 23:12 50 mg ONCE ONE Administration Medical Decision Making Medical Decision Making MDM Narrative: 57-year-old male with history of hepatic encephalopathy presents for evaluation of confusion per his children. The patient reports abdominal pain, he does have an umbilical hernia that is reducible on exam. His abdomen is not significa ntly distended on exam, he has no significant ascites. He is nontender on exam. The patient's labs are consistent with his baseline. He does not appear to be acutely encephalopathic at the time my evaluation. He is answering all my questions appropriately. He verbalizes that he understands all of our conversations. The patient's family is very concerned because he has presented similarly in the past and was ultimately discharged home. They are concerned that if he goes home he will decompensate further. From my standpoint I explained to the patient and his family that I think he is stable to be discharged home with an increased dose of lactulose for a few days to hopefully further clear his mentation. Family is not comfortable with that plan would like him to remain in the hospital overnight. I did discuss with the hospitalist, Dr. You who agrees the patient does not need to be admitted for acute hepatic encephalopathy. I do not see any other indication to admit the patient, therefore he will be held in the ED overnight for case management evaluation. Differential Diagnosis Differential Diagnoses: The differential diagnosis associated with the presentation includes Hepatic encephalopathy Liver failure SBP Umbilical hernia Altered mental status Consult Healthcare Provider Management of the patient was discussed with: Hospitalist (Discussed with Dr. You who agrees the patient does not need to be admitted) Lab Data MDM Lab Attestation statement: I reviewed the patient's lab results. Patient has no leukocytosis with a white count of 6.8. He has a baseline anemia but is actually improved when compared to recent studies with a hemoglobin of 13.1 hematocrit 36.. Very mild thrombocytopenia again improved compared to recent baseline. Sodium is within normal limits, potassium chloride within normal limits. Anion gap is just below normal at 11, renal function within normal limits. Patient has a glucose of 199 which is consistent with his known history of diabetes. T bili elevated 2.9, AST ALT and alk phos all slightly elevated. Ammonia level is 83 which is consistent with his chronic baseline but slightly worsened when compared to the most recent of 12/04/2022 that was 75 12/26/22 22:19 12/26/22 19:54 Labs: Lab Results 12/26/22 12/26/22 12/26/22 Range/Units 19:54 19:54 21:52 WBC (4.8-10.8) X10*3/uL RBC (4.60-5.80) X10*6/uL Hgb (14.0-18.0) g/dl Hct (42.0-52.0) % MCV (80.0-98.0) fL MCH (27.0-33.0) pg MCHC (31.0-36.0) g/dl RDW (11.0-16.0) % Plt Count (160-400) X10*3/uL MPV (9.4-12.4) fL Immature Gran % (Auto) (0.0-0.4) % Neut % (Auto) (45-73) % Lymph % (Auto) (20-40) % [place] % (Auto) (2-11) % Eos % (Auto) (0-4) % Baso % (Auto) (0-2) % Lymph # (Auto) (1.2-4.9) X10*3/uL [place] # (Auto) (0.1-1.2) X10*3/uL Eos # (Auto) (0.0-0.4) X10*3/uL Baso # (Auto) (0.0-0.2) X10*3/uL Abs Immat Gran (auto) (0.00-0.03) X10*3/uL Absolute Neuts (auto) (2.0-8.3) x10*3/uL Absolute Nucleated RBC (0.0-0.012) X10*3/uL Nucleated RBC % (auto) (0.0-0.2) /100WBC Sodium 135 (135-145) mmol/L Potassium 4.4 (3.3-5.1) mmol/L Chloride 104 (96-108) mmol/L Carbon Dioxide 24 (22-29) mmol/L Anion Gap 11 L (12-20) BUN 14 (9-16) mg/dL Creatinine 1.28 (0.5-1.4) mg/dL Estim Creat Clear Calc 51.6 Estimated GFR 58 POC Glucose (60-115) mg/dL Random Glucose 199 H (60-115) mg/dL Calcium 9.7 D (8.4-10.2) mg/dL Magnesium 2.3 (1.6-2.6) mg/dL Total Bilirubin 2.1 H (0.0-1.0) mg/dL Direct Bilirubin 0.9 H (0.0-0.5) mg/dL AST 77 H (5-37) U/L ALT 47 H (0-40) U/L Alkaline Phosphatase 261 H (39-117) U/L Ammonia 83 H (13-55) umol/L Total Protein 8.0 (6.5-8.0) g/dL Albumin 3.2 L (3.5-5.0) g/dL Lipase 25 (8-78) U/L Urine Color Dark Yellow Urine Appearance Clear Urine pH 5.5 (5.0-9.0) Ur Specific [place] >= 1.030 H (1.005-1.025) Urine Protein Trace (Neg-Trace) mg/dL Urine Glucose (UA) 250 H (Negative) mg/dL Urine Ketones Trace (Negative) mg/dL Urine Blood Negative (Negative) Urine Nitrite Negative (Negative) Ur Leukocyte Esterase Negative (Negative) 12/26/22 12/27/22 Range/Units 22:19 07:06 WBC 6.8 (4.8-10.8) X10*3/uL RBC 4.12 L (4.60-5.80) X10*6/uL Hgb 13.1 L (14.0-18.0) g/dl Hct 36.0 L (42.0-52.0) % MCV 87.4 (80.0-98.0) fL MCH 31.8 (27.0-33.0) pg MCHC 36.4 H (31.0-36.0) g/dl RDW 14.0 (11.0-16.0) % Plt Count 116 L (160-400) X10*3/uL MPV 10.3 (9.4-12.4) fL Immature Gran % (Auto) 0.3 (0.0-0.4) % Neut % (Auto) 71.1 (45-73) % Lymph % (Auto) 14.9 L (20-40) % [place] % (Auto) 11.2 H (2-11) % Eos % (Auto) 2.1 (0-4) % Baso % (Auto) 0.4 (0-2) % Lymph # (Auto) 1.0 L (1.2-4.9) X10*3/uL [place] # (Auto) 0.8 (0.1-1.2) X10*3/uL Eos # (Auto) 0.1 (0.0-0.4) X10*3/uL Baso # (Auto) 0.0 (0.0-0.2) X10*3/uL Abs Immat Gran (auto) 0.02 (0.00-0.03) X10*3/uL Absolute Neuts (auto) 4.8 (2.0-8.3) x10*3/uL Absolute Nucleated RBC 0.000 (0.0-0.012) X10*3/uL Nucleated RBC % (auto) 0.0 (0.0-0.2) /100WBC Sodium (135-145) mmol/L Potassium (3.3-5.1) mmol/L Chloride (96-108) mmol/L Carbon Dioxide (22-29) mmol/L Anion Gap (12-20) BUN (9-16) mg/dL Creatinine (0.5-1.4) mg/dL Estim Creat Clear Calc Estimated GFR POC Glucose 162 H (60-115) mg/dL Random Glucose (60-115) mg/dL Calcium (8.4-10.2) mg/dL Magnesium (1.6-2.6) mg/dL Total Bilirubin (0.0-1.0) mg/dL Direct Bilirubin (0.0-0.5) mg/dL AST (5-37) U/L ALT (0-40) U/L Alkaline Phosphatase (39-117) U/L Ammonia (13-55) umol/L Total Protein (6.5-8.0) g/dL Albumin (3.5-5.0) g/dL Lipase (8-78) U/L Urine Color Urine Appearance Urine pH (5.0-9.0) Ur Specific [place] (1.005-1.025) Urine Protein (Neg-Trace) mg/dL Urine Glucose (UA) (Negative) mg/dL Urine Ketones (Negative) mg/dL Urine Blood (Negative) Urine Nitrite (Negative) Ur Leukocyte Esterase (Negative) Tests considered The following testing was considered but not selected: Consider CT abdomen pelvis, but the patient is nontender exam, nondistended has no concerning lab abnormalities compared to his baseline. He is having bowel movements, no concern for obstruction Discharge Plan Discharge Clinical Impression: Encephalopathy, hepatic, Chronic liver failure Patient Disposition: Still a Patient Prescriptions: No Action atorvastatin 20 mg tablet 20 mg PO DAILY trazodone 50 mg tablet 50 mg PO BEDTIME PRN (Reason: insomnia) hydroxyzine HCl 25 mg tablet 25 mg PO TID PRN (Reason: itch) spironolactone 50 mg tablet 50 mg PO BEDTIME insulin glargine-yfgn [Semglee(insulin glarg-yfgn)Pen] 100 unit/mL (3 mL) insulin pen 45 unit subcut BID ferrous sulfate 325 mg (65 mg iron) tablet 325 mg PO BID Qty: 60 0RF nadolol 20 mg tablet 20 mg PO DAILY glipizide 2.5 mg tablet extended release 24hr 2.5 mg PO DAILY pantoprazole 40 mg tablet,delayed release (DR/EC) 40 mg PO DAILY@0630 Ozempic 2 mg/dose (8 mg/3 mL) pen injector 2 mg subcut Q7D furosemide 20 mg tablet 20 mg PO DAILY Xifaxan 550 mg Tablet 550 mg PO BID Qty: 60 0RF lactulose 20 gram/30 mL solution 20 g PO BID Qty: 2880 0RF insulin lispro [Humalog KwikPen Insulin] 100 unit/mL insulin pen See Rx Instructions .ROUTE .COMPLEX Rx Instructions: SLIDING SCALE nadolol 20 mg tablet 20 mg PO DAILY gabapentin 300 mg capsule 300 mg PO QPM Referrals: [facility] [Outside] (Continue outpatient therapy appointments. ) [facility] [Outside] (Agency will call to arrange visit. )
[2022-12-26 20:15] LABS: Ammonia 83 umol/L (13-55)
[2022-12-26 20:20] LABS: Alanine Aminotransferase 47 U/L (0-40); Albumin Level 3.2 g/dL (3.5-5.0); Alkaline Phosphatase 261 U/L (39-117); Anion Gap 11 (12-20); Aspartate Amino Transferase 77 U/L (5-37); Bilirubin Direct 0.9 mg/dL (0.0-0.5); Bilirubin Total 2.1 mg/dL (0.0-1.0); Blood Urea Nitrogen 14 mg/dL (9-16); Calcium 9.7 mg/dL (8.4-10.2); Carbon Dioxide 24 mmol/L (22-29); Chloride 104 mmol/L (96-108); Creatinine Clr Calc Pharmacy 51.6; Estimated Glomerular Filt Rate 58; Glucose Random 199 mg/dL (60-115); Lipase 25 U/L (8-78); Magnesium 2.3 mg/dL (1.6-2.6); Potassium 4.4 mmol/L (3.3-5.1); Sodium 135 mmol/L (135-145)
--- NOTE | 2022-12-26 20:22 | MHC.EDTECH ---
Patient is a difficult blood drawn this tech had a RN try was successful for some labs but not the CBC
[2022-12-26 22:13] LABS: Appearance Urine Clear; Color Urine Dark Yellow; Glucose Urine UA 250 mg/dL (Negative); Leukocyte Esterase Urine Negative (Negative); Nitrite Urine Negative (Negative); PH 5.5 (5.0-9.0); Specific Gravity - Urine >= 1.030 (1.005-1.025); Urine Blood Negative (Negative); Urine Ketones Trace mg/dL (Negative); Urine Protein Trace mg/dL (Neg-Trace)
[2022-12-26 22:16] VITALS: BP 125/87; PULSE 84; RESP 16; O2SAT 98
[2022-12-26 22:23] LABS: MANUAL DIFF FLAG NO
[2022-12-26 22:34] LABS: Basophils Percent Auto 0.4 % (0-2); Eosinophils Absolute Auto 0.1 X10*3/uL (0.0-0.4); Eosinophils Percent Auto 2.1 % (0-4); Hemoglobin 13.1 g/dl (14.0-18.0); Imm Gran Abs Auto 0.02 X10*3/uL (0.00-0.03); Imm Gran Pct Auto 0.3 % (0.0-0.4); Lymphocytes Percent Auto 14.9 % (20-40); Mean Corpuscular HGB Conc 36.4 g/dl (31.0-36.0); Mean Corpuscular Hemoglobin 31.8 pg (27.0-33.0); Mean Corpuscular Volume 87.4 fL (80.0-98.0); Mean Platelet Volume 10.3 fL (9.4-12.4); Monocytes Absolute Auto 0.8 X10*3/uL (0.1-1.2); Monocytes Percent Auto 11.2 % (2-11); Neutrophils Absolute Auto 4.8 x10*3/uL (2.0-8.3); Neutrophils Percent Auto 71.1 % (45-73); Platelet Count 116 X10*3/uL (160-400); Red Blood Count 4.12 X10*6/uL (4.60-5.80); White Blood Count 6.8 X10*3/uL (4.8-10.8)
[2022-12-26] MEDS: traMADoL HCL 50 MG TABLET PO (23:23)
[2022-12-26] MEDS: Lactulose 20 GM/30 ML SOLUTION PO (23:23)
[2022-12-26] MEDS: Lactulose 20 GM/30 ML SOLUTION 10 GM PO (23:23)
[2022-12-27 06:05] VITALS: RESP 14; O2SAT 98
--- NOTE | 2022-12-27 06:23 | PC.NURSE ---
pt slept through the night comfortably. got self up to use bathroom throughout the night - pt ambulates with a steady gait. pt sleeping at this time respirations even and unlabored in no apparent distress. pt was in physician observation for the night per family request. will see case liner and likely be discharged today. call [facility] within reach. will ctm.
--- NOTE | 2022-12-27 07:09 | PC.NURSE ---
assumed care of pt at 0700. pt resting quietly.
[2022-12-27 07:10] LABS: Glucose, Whole Blood 162 mg/dL (60-115)
[2022-12-27] MEDS: Insulin Lispro 100 UNIT/ML 3 ML VIAL SUBCUT (07:26)
[2022-12-27] MEDS: Lactulose 20 GM/30 ML SOLUTION 30 GM PO (08:20)
[2022-12-27] MEDS: Atorvastatin Calcium 20 MG TABLET PO (08:21)
[2022-12-27] MEDS: Furosemide 20 MG TABLET PO (08:21)
[2022-12-27] MEDS: Ferrous Sulfate 324 MG TABLET.DR PO (08:22)
[2022-12-27 08:35] VITALS: BP 108/73; PULSE 95; RESP 18; TEMP 36.6; O2SAT 97
[2022-12-27] MEDS: nadoloL 20 MG TABLET PO (08:40)
--- NOTE | 2022-12-27 08:41 | PC.NURSE ---
meds given per order. pt resting quietly.
[2022-12-27 08:44] VITALS: BP 108/73; PULSE 95; O2SAT 97
--- NOTE | 2022-12-27 12:26 | MHC.CM.ED ---
Received case management consult overnight. Patient came to the ER due AMS. Physical therapy eval completed. Home therapy is recommended. Met with patient and daughter, Agatha in regards to discharge planning. PCP verified. Copy of HCP verified to be on file. Patient received 2 Pfizer vaccines. Agatha is declining home physical therapy at this time. Patient is active with [facility] in [place]. Patient will resume these services. Patient is agreeable to VNA. Aware referral will have to be broadcasted due to staffing shortages. Patient agreeable. [facility] is the only agency able to accept patient at this time. They will not be able to start care until next week. Ry WILCOX aware and agreeable. Agatha is upset patient has not eaten all day and a doctor hasn't seen by dad since last night. Agatha is not interested in waiting for discharge paperwork and wants to take patient home. Ry WILCOX made aware and asked to discharge patient. Continue to monitor for d/c needs.
== END 2022-12-27 12:31 | disposition left against medical advice (07) ==
PROVIDERS: Physician Assistant Medical; Emergency Provider Emergency Medicine; PCP Physician Assistant Medical
DX: K76.82 Hepatic encephalopathy (principal); K72.10 Chronic hepatic failure without coma; K74.60 Unspecified cirrhosis of liver; B19.20 Unspecified viral hepatitis C without hepatic coma; E11.9 Type 2 diabetes mellitus without complications; I10 Essential (primary) hypertension; E78.5 Hyperlipidemia, unspecified; Z79.4 Long term (current) use of insulin; Z79.899 Other long term (current) drug therapy
CPT/HCPCS: 36415; 80048; 80076; 81003; 82140; 82947; 83690; 83735; 85025; 97161; 99284

== ENCOUNTER 2022-12-30 13:20 | Outpatient (REF) | payer OTHER, SELFPAY ==
[2022-12-30 13:55] LABS: Hemoglobin 13.4 g/dl (14.0-18.0); Imm Gran Abs Auto 0.02 X10*3/uL (0.00-0.03); Imm Gran Pct Auto 0.3 % (0.0-0.4); Lymphocytes Percent Auto 12.6 % (20-40); PLT CLUMP 1; SCAN SMEAR FLAG 1
[2022-12-30 13:57] LABS: Basophils Percent Auto 0.5 % (0-2); Eosinophils Absolute Auto 0.2 X10*3/uL (0.0-0.4); Eosinophils Percent Auto 2.2 % (0-4); Hematocrit 37.1 % (42.0-52.0); Lymphocytes Absolute Auto 0.9 X10*3/uL (1.2-4.9); Mean Corpuscular HGB Conc 36.1 g/dl (31.0-36.0); Mean Corpuscular Hemoglobin 31.6 pg (27.0-33.0); Mean Corpuscular Volume 87.5 fL (80.0-98.0); Mean Platelet Volume 10.6 fL (9.4-12.4); Monocytes Absolute Auto 0.7 X10*3/uL (0.1-1.2); Neutrophils Absolute Auto 5.5 x10*3/uL (2.0-8.3); Neutrophils Percent Auto 74.4 % (45-73); Red Blood Count 4.24 X10*6/uL (4.60-5.80); Red Cell Distribution Width 13.9 % (11.0-16.0)
[2022-12-30 14:06] LABS: Ammonia 77 umol/L (13-55)
[2022-12-30 14:07] LABS: MANUAL DIFF FLAG NO; Platelet Count 115 X10*3/uL (160-400); White Blood Count 7.3 X10*3/uL (4.8-10.8)
[2022-12-30 14:23] LABS: Alanine Aminotransferase 53 U/L (0-40); Alkaline Phosphatase 264 U/L (39-117); Anion Gap 9 (12-20); Aspartate Amino Transferase 91 U/L (5-37); Bilirubin Direct 0.9 mg/dL (0.0-0.5); Bilirubin Total 2.1 mg/dL (0.0-1.0); Blood Urea Nitrogen 11 mg/dL (9-16); Calcium 9.6 mg/dL (8.4-10.2); Carbon Dioxide 28 mmol/L (22-29); Chloride 102 mmol/L (96-108); Estimated Glomerular Filt Rate > 60; Glucose Random 237 mg/dL (60-115); Potassium 4.1 mmol/L (3.3-5.1); Sodium 135 mmol/L (135-145); Total Protein 7.6 g/dL (6.5-8.0)
== END 2022-12-30 13:21 | disposition home or self-care (01) ==
LOC: HO.LAB 13:20
PROVIDERS: Visit Provider Internal Medicine
DX: K70.31 Alcoholic cirrhosis of liver with ascites (principal)
CPT/HCPCS: 36415; 80048; 80076; 82140; 85025

== ENCOUNTER 2023-01-07 17:11 | Outpatient (REF) | payer OTHER, SELFPAY ==
[2023-01-07 18:13] LABS: INTERNATIONAL NORM RATIO 1.3 (0.9-1.1); Prothrombin Time 15.2 SEC (11.1-13.3)
[2023-01-07 18:45] LABS: Alanine Aminotransferase 55 U/L (0-40); Alkaline Phosphatase 239 U/L (39-117); Anion Gap 14 (12-20); Aspartate Amino Transferase 88 U/L (5-37); Bilirubin Total 1.9 mg/dL (0.0-1.0); Blood Urea Nitrogen 9 mg/dL (9-16); Calcium 9.2 mg/dL (8.4-10.2); Carbon Dioxide 20 mmol/L (22-29); Chloride 104 mmol/L (96-108); Estimated Glomerular Filt Rate > 60; Glucose Random 232 mg/dL (60-115); Potassium 3.9 mmol/L (3.3-5.1); Sodium 134 mmol/L (135-145); Total Protein 7.3 g/dL (6.5-8.0)
== END 2023-01-07 17:12 | disposition home or self-care (01) ==
LOC: HO.LABR 17:11
PROVIDERS: PCP Physician Assistant Medical; Referring Provider Internal Medicine; Visit Provider Nurse Practitioner Acute Care
DX: B19.20 Unspecified viral hepatitis C without hepatic coma (principal); K70.30 Alcoholic cirrhosis of liver without ascites; Z76.82 Awaiting organ transplant status
CPT/HCPCS: 36415; 80053; 85610

== ENCOUNTER 2023-01-09 20:18 | Emergency (ER) | payer OTHER, SELFPAY ==
--- NOTE | 2023-01-09 | ECG_ITS ---
Test Reason : cp Blood Pressure : / mmHG Vent. Rate : 090 BPM Atrial Rate : 090 BPM P-R Int : 150 ms QRS Dur : 074 ms QT Int : 374 ms P-R-T Axes : 058 044 036 degrees QTc Int : 457 ms Normal sinus rhythm Normal ECG When compared with ECG of 18-OCT-2022 21:58, Nonspecific T wave abnormality no longer evident in Anterior leads Referred By: Generic ED Physician Electronically Signed By:JIE JOSÉ
--- NOTE | ~2023-01-09 | XR_ITS ---
EXAMINATION: XR CHEST CLINICAL INFORMATION: Shortness of breath/chest pain. COMPARISON: Chest radiograph 09/08/2022. TECHNIQUE: 2 views of the chest were obtained. FINDINGS: Normal appearance of the cardiomediastinal silhouette. No focal airspace opacities, pleural effusion or pneumothorax. No acute osseous findings. The visualized upper abdomen is within normal limits. XR/XR chest 2V IMPRESSION: No acute cardiopulmonary findings.
--- NOTE | 2023-01-09 20:37 | ED_ITS ---
HPI - General Adult General Chief complaint: Dyspnea Stated complaint: SOB/Chest pain Time Seen by Provider: 01/09/23 21:43 Source: patient Mode of arrival: ambulatory Limitations: no limitations History of Present Illness HPI narrative: patient is 57 years old with history of diabetes, hepatic encephalopathy rela lo to liver disease hepatitis-C alcohol use on transplant list was admitted here for confusion 2 weeks ago comes here as a feeling short of breath for few months. has dry cough for 1 week, saturating 100% while in the bed on ambulation does decrease to 98% noted significant distress noticed patient relax no fever no chills Related Data Home Medications Medication Instructions Recorded Confirmed atorvastatin 20 mg tablet 20 mg PO DAILY 06/29/20 12/27/22 hydroxyzine HCl 25 mg tablet 25 mg PO TID PRN itch 09/09/22 10/19/22 insulin glargine-yfgn 100 unit/mL 45 unit subcut BID 09/09/22 10/19/22 (3 mL) subcutaneous pen (Semglee (insulin glargine-yfgn) Pen) spironolactone 50 mg tablet 50 mg PO BEDTIME 09/09/22 10/19/22 trazodone 50 mg tablet 50 mg PO BEDTIME PRN insomnia 09/09/22 10/19/22 furosemide 20 mg tablet 20 mg PO DAILY 10/03/22 12/27/22 glipizide 2.5 mg tablet, extended 2.5 mg PO DAILY 10/03/22 10/19/22 release 24 hr nadolol 20 mg tablet 20 mg PO DAILY 10/03/22 10/19/22 pantoprazole 40 mg tablet,delayed 40 mg PO DAILY@0630 10/03/22 10/19/22 release semaglutide 2 mg/dose (8 mg/3 mL) 2 mg subcut Q7D 10/03/22 10/19/22 subcutaneous pen injector (Ozempic) insulin lispro 100 unit/mL See Rx Instructions .Route .COMPLEX 10/19/22 12/27/22 subcutaneous pen (Humalog KwikPen (U-100) Insulin) gabapentin 300 mg capsule 300 mg PO QPM 12/27/22 12/27/22 nadolol 20 mg tablet 20 mg PO DAILY 12/27/22 12/27/22 Previous Rx's Medication Instructions Recorded ferrous sulfate 325 mg (65 mg 325 mg PO BID #60 tabs 09/12/22 iron) tablet lactulose 20 gram/30 mL oral 20 g (30 mL) PO BID #2,880 mL 10/04/22 solution rifaximin 550 mg tablet (Xifaxan) 550 mg PO BID #60 tabs 10/04/22 Allergies Allergy/AdvReac Type Severity Reaction Status Date / Time codeine [CODEINE] Allergy Mild ITCHINESS, Verified 01/09/23 20:38 itching penicillin G Allergy Mild itching Verified 01/09/23 20:38 Review of Systems Review of Systems: Yes all other systems are reviewed and are negative ON LICENSE OF [facility] Past Medical History Medical History Abdominal ascites Black stools Chronic hyponatremia Cirrhosis Cirrhosis of liver Diabetes Elevated cholesterol Hepatitis History of alcohol abuse HTN (hypertension) Myocardial infarction Normocytic anemia Varices, esophageal Surgical History H/O colonoscopy History of esophagogastroduodenoscopy (EGD) History of PTCA Hx of hand surgery Social History Social History Household Members: Family Housing: House Do you presently have visiting nurse or other home services: No Unable to assess alcohol history related to: Unable to respond Alcohol intake: former Patient Tobacco Use Status: Former Tobacco user Quit Date: 2013 Tobacco use type: Cigarette Smoked in Last 30 Days: No Second Hand Smoke Exposure: No Use of substances other than those prescribed or required for medical reasons: No Advance Directives: Yes Advance Directives on File: Yes Advance Directives Date on File: 09/13/22 service: Yes Current occupational status: disabled Physical Exam ED Vital Signs: Vital Signs - 24 hr 01/09/23 20:38 01/09/23 20:56 Temperature 96.8 F Pulse Rate 92 83 Respiratory Rate 22 H 20 Blood Pressure 119/71 137/81 Pulse Oximetry 97 100 Oxygen Delivery Method Room Air Room Air BMI result Body Mass Index 22.3 Appearance: Alert. Oriented X3. No acute distress. Eyes: PERRLA, No Nystagmus ENT: Pharynx normal. Oral Mucosa moist Neck: Normal inspection. Neck supple. CVS: Normal heart rate and rhythm. Pulses normal. Respiratory: No respiratory distress. Equal air entry bilateral, no wheezing/rales/rhonchi Abdomen: Soft and nontender. Bowel sounds are present, no mass palpable, no CVA tenderness umbilical hernia reducible nontender Skin: Skin warm and dry. Normal skin color. Normal skin turgor. Extremities: No lower extremity edema. No calf tenderness Neuro: Oriented X 3. No motor deficit. No sensory deficit.No cerebellar signs , cranial nerves II-XII intact Course Course Course Narrative: This is a rapid medical exam: Additional HPI, ROS, PE not included below will be deferred to primary provider. Patient is a 57-year-old male with history of DM, cirrhosis, ascites, HTN, RI, esophageal varices, hepatic encephalopathy presenting to the emergency department with complaint of shortness of breath and chest pain since earlier this week. Rates pain at 10/10. Also complains of pe riumbilical abdominal pain and constipation. Denies nausea, vomiting or diarrhea. Usually takes lactulose, but had a stress test today so had less lactulose than normal. Feels symptoms worsened after stress test. States last bowel movement was yesterday. Denies fevers. Plan: EKG, labs, UA Medications Administered Discontinued Medications Generic Name Dose Route Start Last Admin Trade Name Freq PRN Reason Stop Dose Admin Al Hydroxide/Mg Hydroxide 30 ml 01/09/23 23:37 01/09/23 23:50 Magnesium Hydrox/Alum Hydrox 30 Ml Oral.Susp PO 01/09/23 23:38 30 ml ONCE ONE Administration Medical Decision Making Medical Decision Making [facility] Narrative: patient chronic lung disease with stable vitals stable labs discharge patient home chest x-ray negative Lab Data [facility] Lab Attestation statement: I reviewed the patient's lab results. 01/09/23 21:11 01/09/23 21:11 Labs: Lab Results 01/09/23 01/09/23 01/09/23 Range/Units 21:11 21:11 21:11 WBC 6.7 (4.8-10.8) X10*3/uL RBC 4.17 L (4.60-5.80) X10*6/uL Hgb 13.2 L (14.0-18.0) g/dl Hct 36.5 L (42.0-52.0) % MCV 87.5 (80.0-98.0) fL MCH 31.7 (27.0-33.0) pg MCHC 36.2 H (31.0-36.0) g/dl RDW 13.9 (11.0-16.0) % Plt Count 111 L (160-400) X10*3/uL MPV 10.5 (9.4-12.4) fL Immature Gran % (Auto) 0.3 (0.0-0.4) % Neut % (Auto) 71.0 (45-73) % Lymph % (Auto) 13.7 L (20-40) % [place] % (Auto) 11.2 H (2-11) % Eos % (Auto) 3.1 (0-4) % Baso % (Auto) 0.7 (0-2) % Lymph # (Auto) 0.9 L (1.2-4.9) X10*3/uL [place] # (Auto) 0.8 (0.1-1.2) X10*3/uL Eos # (Auto) 0.2 (0.0-0.4) X10*3/uL Baso # (Auto) 0.1 (0.0-0.2) X10*3/uL Abs Immat Gran (auto) 0.02 (0.00-0.03) X10*3/uL Absolute Neuts (auto) 4.8 (2.0-8.3) x10*3/uL Absolute Nucleated RBC 0.000 (0.0-0.012) X10*3/uL Nucleated RBC % (auto) 0.0 (0.0-0.2) /100WBC PT (11.1-13.3) SEC INR (0.9-1.1) Sodium 131 L (135-145) mmol/L Potassium 5.0 D (3.3-5.1) mmol/L Chloride 101 (96-108) mmol/L Carbon Dioxide 19 L (22-29) mmol/L Anion Gap 16 (12-20) BUN 12 (9-16) mg/dL Creatinine 1.04 (0.5-1.4) mg/dL Estim Creat Clear Calc 63.8 Estimated GFR > 60 POC Glucose (60-115) mg/dL Random Glucose 351 H* (60-115) mg/dL Calcium 9.3 (8.4-10.2) mg/dL Total Bilirubin 1.6 H (0.0-1.0) mg/dL AST 87 H (5-37) U/L ALT 57 H (0-40) U/L Alkaline Phosphatase 264 H (39-117) U/L Troponin I High Sens 9.6 D (<3.5-35.0) ng/L Total Protein 7.9 (6.5-8.0) g/dL Albumin 3.1 L (3.5-5.0) g/dL Lipase 43 (8-78) U/L Urine Color Urine Appearance Urine pH (5.0-9.0) Ur Specific [place] (1.005-1.025) Urine Protein (Neg-Trace) mg/dL Urine Glucose (UA) (Negative) mg/dL Urine Ketones (Negative) mg/dL Urine Blood (Negative) Urine Nitrite (Negative) Ur Leukocyte Esterase (Negative) Urine RBC (0-2) /HPF Urine WBC (0-5) /HPF Ur Squamous Epith Cells (0-2) /HPF Urine Bacteria (None Seen) Hyaline Casts (0-2) /LPF 01/09/23 01/09/23 01/09/23 Range/Units 21:11 21:11 23:49 WBC (4.8-10.8) X10*3/uL RBC (4.60-5.80) X10*6/uL Hgb (14.0-18.0) g/dl Hct (42.0-52.0) % MCV (80.0-98.0) fL MCH (27.0-33.0) pg MCHC (31.0-36.0) g/dl RDW (11.0-16.0) % Plt Count (160-400) X10*3/uL MPV (9.4-12.4) fL Immature Gran % (Auto) (0.0-0.4) % Neut % (Auto) (45-73) % Lymph % (Auto) (20-40) % [place] % (Auto) (2-11) % Eos % (Auto) (0-4) % Baso % (Auto) (0-2) % Lymph # (Auto) (1.2-4.9) X10*3/uL [place] # (Auto) (0.1-1.2) X10*3/uL Eos # (Auto) (0.0-0.4) X10*3/uL Baso # (Auto) (0.0-0.2) X10*3/uL Abs Immat Gran (auto) (0.00-0.03) X10*3/uL Absolute Neuts (auto) (2.0-8.3) x10*3/uL Absolute Nucleated RBC (0.0-0.012) X10*3/uL Nucleated RBC % (auto) (0.0-0.2) /100WBC PT 14.6 H (11.1-13.3) SEC INR 1.2 H (0.9-1.1) Sodium (135-145) mmol/L Potassium (3.3-5.1) mmol/L Chloride (96-108) mmol/L Carbon Dioxide (22-29) mmol/L Anion Gap (12-20) BUN (9-16) mg/dL Creatinine (0.5-1.4) mg/dL Estim Creat Clear Calc Estimated GFR POC Glucose 217 H (60-115) mg/dL Random Glucose (60-115) mg/dL Calcium (8.4-10.2) mg/dL Total Bilirubin (0.0-1.0) mg/dL AST (5-37) U/L ALT (0-40) U/L Alkaline Phosphatase (39-117) U/L Troponin I High Sens (<3.5-35.0) ng/L Total Protein (6.5-8.0) g/dL Albumin (3.5-5.0) g/dL Lipase (8-78) U/L Urine Color Yellow Urine Appearance Clear Urine pH 6.0 (5.0-9.0) Ur Specific [place] >= 1.030 H (1.005-1.025) Urine Protein Negative (Neg-Trace) mg/dL Urine Glucose (UA) >=1000 H (Negative) mg/dL Urine Ketones Negative (Negative) mg/dL Urine Blood Negative (Negative) Urine Nitrite Negative (Negative) Ur Leukocyte Esterase Negative (Negative) Urine RBC 0-2 (0-2) /HPF Urine WBC 0-5 (0-5) /HPF Ur Squamous Epith Cells 3-5 (0-2) /HPF Urine Bacteria None Seen (None Seen) Hyaline Casts 0-2 (0-2) /LPF Discharge Plan Discharge Clinical Impression: Chronic liver disease, Hyperglycemia due to diabetes mellitus Patient Disposition: Home, Self-Care Instructions: Cirrhosis (ED) Additional Instructions: continue medications and 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 Prescriptions: No Action atorvastatin 20 mg tablet 20 mg PO DAILY trazodone 50 mg tablet 50 mg PO BEDTIME PRN (Reason: insomnia) hydroxyzine HCl 25 mg tablet 25 mg PO TID PRN (Reason: itch) spironolactone 50 mg tablet 50 mg PO BEDTIME insulin glargine-yfgn [Semglee(insulin glarg-yfgn)Pen] 100 unit/mL (3 mL) insulin pen 45 unit subcut BID ferrous sulfate 325 mg (65 mg iron) tablet 325 mg PO BID Qty: 60 0RF nadolol 20 mg tablet 20 mg PO DAILY glipizide 2.5 mg tablet extended release 24hr 2.5 mg PO DAILY pantoprazole 40 mg tablet,delayed release (DR/EC) 40 mg PO DAILY@0630 Ozempic 2 mg/dose (8 mg/3 mL) pen injector 2 mg subcut Q7D furosemide 20 mg tablet 20 mg PO DAILY Xifaxan 550 mg Tablet 550 mg PO BID Qty: 60 0RF lactulose 20 gram/30 mL solution 20 g PO BID Qty: 2880 0RF insulin lispro [Humalog KwikPen Insulin] 100 unit/mL insulin pen See Rx Instructions .ROUTE .COMPLEX Rx Instructions: SLIDING SCALE nadolol 20 mg tablet 20 mg PO DAILY gabapentin 300 mg capsule 300 mg PO QPM Interventions: ED Discharge Assessment Last Done: 01/10/23 00:03 Discharge Date/Time: 01/10/23 00:04
[2023-01-09 20:38] VITALS: BP 119/71; PULSE 92; RESP 22; TEMP 36; O2SAT 97; BMI 22.3
[2023-01-09 20:56] VITALS: BP 137/81; PULSE 83; RESP 20; O2SAT 100
[2023-01-09 21:26] LABS: MANUAL DIFF FLAG NO
[2023-01-09 21:29] LABS: Basophils Absolute Auto 0.1 X10*3/uL (0.0-0.2); Basophils Percent Auto 0.7 % (0-2); Eosinophils Absolute Auto 0.2 X10*3/uL (0.0-0.4); Eosinophils Percent Auto 3.1 % (0-4); Hematocrit 36.5 % (42.0-52.0); Hemoglobin 13.2 g/dl (14.0-18.0); Imm Gran Abs Auto 0.02 X10*3/uL (0.00-0.03); Imm Gran Pct Auto 0.3 % (0.0-0.4); Lymphocytes Absolute Auto 0.9 X10*3/uL (1.2-4.9); Lymphocytes Percent Auto 13.7 % (20-40); Mean Corpuscular HGB Conc 36.2 g/dl (31.0-36.0); Mean Corpuscular Hemoglobin 31.7 pg (27.0-33.0); Mean Corpuscular Volume 87.5 fL (80.0-98.0); Mean Platelet Volume 10.5 fL (9.4-12.4); Monocytes Absolute Auto 0.8 X10*3/uL (0.1-1.2); Monocytes Percent Auto 11.2 % (2-11); Neutrophils Absolute Auto 4.8 x10*3/uL (2.0-8.3); Platelet Count 111 X10*3/uL (160-400); Red Blood Count 4.17 X10*6/uL (4.60-5.80); Red Cell Distribution Width 13.9 % (11.0-16.0); White Blood Count 6.7 X10*3/uL (4.8-10.8)
[2023-01-09 21:31] LABS: Appearance Urine Clear; Color Urine Yellow; Glucose Urine UA >=1000 mg/dL (Negative); Leukocyte Esterase Urine Negative (Negative); Nitrite Urine Negative (Negative); Specific Gravity - Urine >= 1.030 (1.005-1.025); UMIC TRIGGER UACC YES; Urine Blood Negative (Negative); Urine Ketones Negative (Negative); Urine Protein Negative (Neg-Trace)
[2023-01-09 21:36] LABS: Bacteria Urine None Seen (None Seen); Hyaline Casts Urine 0-2 /LPF (0-2); RBC Urine 0-2 /HPF (0-2); WBC Urine 0-5 /HPF (0-5)
[2023-01-09 21:37] LABS: INTERNATIONAL NORM RATIO 1.2 (0.9-1.1); Prothrombin Time 14.6 SEC (11.1-13.3)
[2023-01-09 21:58] LABS: Troponin-I High Sensitivity 9.6 ng/L (<3.5-35.0)
[2023-01-09 22:01] LABS: Alanine Aminotransferase 57 U/L (0-40); Albumin Level 3.1 g/dL (3.5-5.0); Alkaline Phosphatase 264 U/L (39-117); Anion Gap 16 (12-20); Aspartate Amino Transferase 87 U/L (5-37); Bilirubin Total 1.6 mg/dL (0.0-1.0); Blood Urea Nitrogen 12 mg/dL (9-16); Calcium 9.3 mg/dL (8.4-10.2); Carbon Dioxide 19 mmol/L (22-29); Chloride 101 mmol/L (96-108); Creatinine Clr Calc Pharmacy 63.8; Estimated Glomerular Filt Rate > 60; Glucose Random 351 mg/dL (60-115); Lipase 43 U/L (8-78); Sodium 131 mmol/L (135-145); Total Protein 7.9 g/dL (6.5-8.0)
--- NOTE | 2023-01-09 23:27 | MHC.EDTECH ---
Pt ambulated around ED, maintained o2 sat of 100%.
[2023-01-09] MEDS: Magnesium Hydrox/Alum Hydrox 30 ML ORAL.SUSP PO (23:50)
[2023-01-09 23:53] LABS: Glucose, Whole Blood 217 mg/dL (60-115)
== END 2023-01-10 00:04 | disposition home or self-care (01) ==
PROVIDERS: Registered Nurse Emergency; Emergency Provider Internal Medicine; PCP Physician Assistant Medical
DX: K76.9 Liver disease, unspecified (principal); R06.02 Shortness of breath; R07.89 Other chest pain; R05.9 Cough, unspecified; E11.65 Type 2 diabetes mellitus with hyperglycemia; Z79.4 Long term (current) use of insulin; Z79.899 Other long term (current) drug therapy; Z87.891 Personal history of nicotine dependence
CPT/HCPCS: 36415; 71046; 80053; 81001; 82947; 83690; 84484; 85025; 85610; 93005; 99283; 99285

== ENCOUNTER → 2023-01-09 20:35 | Outpatient (BNV) | payer OTHER, SELFPAY | PROVIDERS: Emergency Provider Internal Medicine; PCP Physician Assistant Medical; Visit Provider Internal Medicine | DX: R07.9 Chest pain, unspecified (principal) | CPT/HCPCS: 93010 ==

== ENCOUNTER 2023-01-14 16:24 | Outpatient (REF) | payer OTHER, SELFPAY ==
[2023-01-14 17:00] LABS: Anion Gap 10 (12-20); Blood Urea Nitrogen 14 mg/dL (9-16); Calcium 9.9 mg/dL (8.4-10.2); Carbon Dioxide 24 mmol/L (22-29); Chloride 95 mmol/L (96-108); Estimated Glomerular Filt Rate 58; Glucose Random 177 mg/dL (60-115); Potassium 4.4 mmol/L (3.3-5.1); Sodium 125 mmol/L (135-145)
[2023-01-14 17:38] LABS: Ammonia 95 umol/L (13-55)
== END 2023-01-14 16:25 | disposition home or self-care (01) ==
LOC: HO.LAB 16:24
PROVIDERS: PCP Internal Medicine; Visit Provider Internal Medicine
DX: K70.31 Alcoholic cirrhosis of liver with ascites (principal); R10.84 Generalized abdominal pain
CPT/HCPCS: 36415; 80048; 82140

== ENCOUNTER 2023-01-16 10:24 | Outpatient (REF) | payer OTHER, SELFPAY ==
--- NOTE | ~2023-01-16 | US_ITS ---
EXAMINATION: US ABDOMEN COMPLETE, US DUPLEX ARTERIAL VENOUS COMPLETE CLINICAL INFORMATION: Cirrhosis COMPARISON: CT abdomen and pelvis 01/16/2023. TECHNIQUE: Real-time imaging of the abdominal viscera. Color and spectral Doppler evaluation of the hepatic vasculature. FINDINGS: LIVER: Cirrhotic appearing liver with heterogeneous and echogenic parenchyma. No discrete liver mass. No dilated bile ducts. SPLENIC VEIN: The splenic vein is patent with flow away from the splenic hilum. There are large varices from the splenic vein. HEPATIC VEINS: Patent with normal waveforms. PORTAL VEINS: The main portal vein and left portal vein demonstrate reversed (hepatofugal) flow. The right portal vein demonstrates normal (hepatopedal) flow, which could be technical artifact related to the small vein sampled. HEPATIC ARTERIES: Normal upstroke and diastolic flow. INFERIOR VENA CAVA: Patent with normal waveform. GALLBLADDER: Normal. The gallbladder is physiologically distended without evidence of stones, sludge, polyps, wall thickening or pericholecystic fluid. COMMON BILE DUCT: Normal in caliber measuring 0.3 cm in diameter. PANCREAS: Normal. The visualized pancreatic head and body are normal in appearance. The remainder of the pancreas is obscured from visualization by the overlying bowel gas. RIGHT KIDNEY: 0.4 cm nonobstructing calculus in the lower pole. No hydronephrosis. No focal parenchymal lesions. The kidney measures 11.7 cm in maximum dimension LEFT KIDNEY: 2.0 cm simple cyst in the lower pole. No follow-up imaging is recommended. No hydronephrosis. No nephrolithiasis. The kidney measures 11.6 cm in maximum dimension. SPLEEN: Enlarged. The spleen measures 13 cm in maximum dimension. ABDOMINAL AORTA: The visualized proximal segment is normal in caliber. INFERIOR VENA CAVA: Visualized portions are normal. FREE FLUID: Trace perihepatic ascites. US/US duplex arterial venous comp IMPRESSION: Cirrhotic liver. Portal hypertension with reversal of flow in the main portal vein, splenomegaly, perisplenic varices. 4 mm nonobstructing calculus in the right lower kidney.
[2023-01-16 12:16] LABS: Ammonia 58 umol/L (13-55)
[2023-01-16 14:53] LABS: Anion Gap 14 (12-20); Blood Urea Nitrogen 14 mg/dL (9-16); Calcium 9.9 mg/dL (8.4-10.2); Carbon Dioxide 19 mmol/L (22-29); Chloride 95 mmol/L (96-108); Estimated Glomerular Filt Rate > 60; Glucose Random 204 mg/dL (60-115); Potassium 5.7 mmol/L (3.3-5.1); Sodium 122 mmol/L (135-145)
== END 2023-01-16 10:25 | disposition home or self-care (01) ==
LOC: HO.US 10:24
PROVIDERS: PCP Physician Assistant Medical; Visit Provider Internal Medicine
DX: R10.84 Generalized abdominal pain (principal); K70.31 Alcoholic cirrhosis of liver with ascites
CPT/HCPCS: 36415; 76700; 80048; 82140; 93975

== ENCOUNTER 2023-01-16 16:43 | Emergency (ER) | payer OTHER, SELFPAY ==
--- NOTE | ~2023-01-16 | CT_ITS ---
EXAMINATION: CT ABDOMEN AND PELVIS WITH CONTRAST CLINICAL INFORMATION: Diarrhea. COMPARISON: 12/04/2022 TECHNIQUE: Multidetector volumetric images were obtained from the superior aspect of the liver through the pubic symphysis following administration 85 mL of Omnipaque 350 intravenous contrast. Sagittal and coronal reformatted images were obtained on the technologist's workstation. Oral Contrast: No. This CT examination was performed using dose optimization techniques as appropriate, variously including the following: *Automated exposure control. *Adjustment of mA and/or kV according to patient size (this includes techniques or standardized protocols for targeted exams where dose is matched to indication/reason for exam; i.e. extremities or head). *Use of iterative reconstruction technique. DLP: 372 mGy-cm FINDINGS: LUNG BASES: The visualized lung bases are unremarkable. LIVER, GALLBLADDER, AND BILIARY TREE: The liver is small and irregular in contour. The gallbladder is unremarkable with no evidence of radiopaque gallstones, gallbladder wall thickening, or obvious pericholecystic inflammatory changes. PANCREAS: Unremarkable. SPLEEN: The spleen is enlarged measuring up to 16 cm. ADRENAL GLANDS: Unremarkable. KIDNEYS AND URETERS: The kidneys are normal in size, shape, and attenuation. No hydronephrosis, hydroureter, or calculi seen. No perinephric stranding. BLADDER: Unremarkable. GASTROINTESTINAL TRACT: The small and large bowel are unremarkable. The appendix is visualized and is within normal limits. There is central mesenteric infiltration. There is trace ascites along the liver. ABDOMINAL WALL: There is an umbilical hernia containing fat. LYMPH NODES: Normal. VASCULAR: Unremarkable. PELVIC VISCERA: Splenic perigastric and paraesophageal varices are noted. OSSEOUS STRUCTURES: Unremarkable. CT/CT abdomen pelvis w IV con IMPRESSION: 1. Cirrhotic liver with splenomegaly, varices, mesenteric edema and minimal ascites. 2. Umbilical hernia containing fat. 3. No acute intra-abdominal process. Fleischner guidelines were followed.
--- NOTE | ~2023-01-16 | XR_ITS ---
EXAMINATION: XR CHEST CLINICAL INFORMATION: Chest pain COMPARISON: 01/09/2023 TECHNIQUE: 2 views of the chest were obtained. FINDINGS: The lungs are well expanded. There is no focal consolidation, edema, or effusion. No pneumothorax. The cardiomediastinal silhouette is within normal limits. No acute osseous abnormality. XR/XR chest 2V IMPRESSION: Clear lungs.
--- NOTE | 2023-01-16 17:33 | ED.GENADULT ---
HPI - General Adult General Stated complaint: abnormal labs Related Data Home Medications Medication Instructions Recorded Confirmed atorvastatin 20 mg tablet 20 mg PO DAILY 06/29/20 12/27/22 hydroxyzine HCl 25 mg tablet 25 mg PO TID PRN itch 09/09/22 10/19/22 insulin glargine-yfgn 100 unit/mL 45 unit subcut BID 09/09/22 10/19/22 (3 mL) subcutaneous pen (Semglee (insulin glargine-yfgn) Pen) spironolactone 50 mg tablet 50 mg PO BEDTIME 09/09/22 10/19/22 trazodone 50 mg tablet 50 mg PO BEDTIME PRN insomnia 09/09/22 10/19/22 furosemide 20 mg tablet 20 mg PO DAILY 10/03/22 12/27/22 glipizide 2.5 mg tablet, extended 2.5 mg PO DAILY 10/03/22 10/19/22 release 24 hr nadolol 20 mg tablet 20 mg PO DAILY 10/03/22 10/19/22 pantoprazole 40 mg tablet,delayed 40 mg PO DAILY@0630 10/03/22 10/19/22 release semaglutide 2 mg/dose (8 mg/3 mL) 2 mg subcut Q7D 10/03/22 10/19/22 subcutaneous pen injector (Ozempic) insulin lispro 100 unit/mL See Rx Instructions .Route .COMPLEX 10/19/22 12/27/22 subcutaneous pen (Humalog KwikPen (U-100) Insulin) gabapentin 300 mg capsule 300 mg PO QPM 12/27/22 12/27/22 nadolol 20 mg tablet 20 mg PO DAILY 12/27/22 12/27/22 Previous Rx's Medication Instructions Recorded ferrous sulfate 325 mg (65 mg 325 mg PO BID #60 tabs 09/12/22 iron) tablet lactulose 20 gram/30 mL oral 20 g (30 mL) PO BID #2,880 mL 10/04/22 solution rifaximin 550 mg tablet (Xifaxan) 550 mg PO BID #60 tabs 10/04/22 Allergies Allergy/AdvReac Type Severity Reaction Status Date / Time codeine [CODEINE] Allergy Mild ITCHINESS, Verified 01/09/23 20:38 itching penicillin G Allergy Mild itching Verified 01/09/23 20:38 PMF Past Medical History Medical History Abdominal ascites Black stools Chronic hyponatremia Cirrhosis Cirrhosis of liver Diabetes Elevated cholesterol Hepatitis History of alcohol abuse HTN (hypertension) Myocardial infarction Normocytic anemia Varices, esophageal Surgical History H/O colonoscopy History of esophagogastroduodenoscopy (EGD) History of PTCA Hx of hand surgery Social History Social History Household Members: Family Housing: House Do you presently have visiting nurse or other home services: No Unable to assess alcohol history related to: Unable to respond Alcohol intake: former Patient Tobacco Use Status: Former Tobacco user Quit Date: 2013 Tobacco use type: Cigarette Second Hand Smoke Exposure: No Advance Directives Date on File: 09/13/22 service: Yes Current occupational status: disabled Course Course Course Narrative: This is an RME: Additional HPI, ROS, PE not included below will be deferred to primary provider. 57 years old with history of diabetes, hepatic encephalopathy related to liver disease hepatitis-C alcohol use on transplant list was admitted here for confusion 2 weeks ago, presenting to the emergency department with complaints of abnormal labs and lower abdominal. Admits to urinary urgency. +Constipation. Was seen by Discharge Plan Discharge Prescriptions: No Action atorvastatin 20 mg tablet 20 mg PO DAILY trazodone 50 mg tablet 50 mg PO BEDTIME PRN (Reason: insomnia) hydroxyzine HCl 25 mg tablet 25 mg PO TID PRN (Reason: itch) spironolactone 50 mg tablet 50 mg PO BEDTIME insulin glargine-yfgn [Semglee(insulin glarg-yfgn)Pen] 100 unit/mL (3 mL) insulin pen 45 unit subcut BID ferrous sulfate 325 mg (65 mg iron) tablet 325 mg PO BID Qty: 60 0RF nadolol 20 mg tablet 20 mg PO DAILY glipizide 2.5 mg tablet extended release 24hr 2.5 mg PO DAILY pantoprazole 40 mg tablet,delayed release (DR/EC) 40 mg PO DAILY@0630 Ozempic 2 mg/dose (8 mg/3 mL) pen injector 2 mg subcut Q7D furosemide 20 mg tablet 20 mg PO DAILY Xifaxan 550 mg Tablet 550 mg PO BID Qty: 60 0RF lactulose 20 gram/30 mL solution 20 g PO BID Qty: 2880 0RF insulin lispro [Humalog KwikPen Insulin] 100 unit/mL insulin pen See Rx Instructions .ROUTE .COMPLEX Rx Instructions: SLIDING SCALE nadolol 20 mg tablet 20 mg PO DAILY gabapentin 300 mg capsule 300 mg PO QPM
[2023-01-16 17:34] VITALS: BP 107/65; PULSE 91; RESP 16; TEMP 36.4; O2SAT 98; BMI 22.1
--- NOTE | 2023-01-16 17:35 | ECG_ITS ---
Test Reason : chest pain Blood Pressure : / mmHG Vent. Rate : 088 BPM Atrial Rate : 088 BPM P-R Int : 144 ms QRS Dur : 078 ms QT Int : 364 ms P-R-T Axes : 074 065 067 degrees QTc Int : 440 ms Normal sinus rhythm Normal ECG When compared with ECG of 09-JAN-2023 20:35, No significant change was found Referred By: Trisha Garces Electronically Signed By:Dany Graham
[2023-01-16 18:09] LABS: MANUAL DIFF FLAG NO
[2023-01-16 18:31] LABS: Alanine Aminotransferase 61 U/L (0-40); Albumin Level 3.1 g/dL (3.5-5.0); Alkaline Phosphatase 265 U/L (39-117); Anion Gap 14 (12-20); Aspartate Amino Transferase 84 U/L (5-37); Bilirubin Direct 0.9 mg/dL (0.0-0.5); Blood Urea Nitrogen 18 mg/dL (9-16); Calcium 9.7 mg/dL (8.4-10.2); Carbon Dioxide 20 mmol/L (22-29); Chloride 93 mmol/L (96-108); Creatinine Clr Calc Pharmacy 46.4; Estimated Glomerular Filt Rate 52; Glucose Random 360 mg/dL (60-115); Magnesium 2.3 mg/dL (1.6-2.6); Potassium 4.8 mmol/L (3.3-5.1); Sodium 122 mmol/L (135-145); Total Protein 7.9 g/dL (6.5-8.0)
[2023-01-16 18:32] LABS: Troponin-I High Sensitivity 14.7 ng/L (<3.5-35.0)
[2023-01-16 18:53] LABS: Ammonia 93 umol/L (13-55)
[2023-01-16 19:00] LABS: Basophils Absolute Auto 0.1 X10*3/uL (0.0-0.2); Basophils Percent Auto 0.6 % (0-2); Eosinophils Absolute Auto 0.1 X10*3/uL (0.0-0.4); Eosinophils Percent Auto 1.4 % (0-4); Hematocrit 41.3 % (42.0-52.0); Hemoglobin 15.3 g/dl (14.0-18.0); Imm Gran Abs Auto 0.03 X10*3/uL (0.00-0.03); Imm Gran Pct Auto 0.4 % (0.0-0.4); Lymphocytes Absolute Auto 1.2 X10*3/uL (1.2-4.9); Lymphocytes Percent Auto 14.4 % (20-40); Mean Corpuscular Hemoglobin 31.6 pg (27.0-33.0); Mean Corpuscular Volume 85.3 fL (80.0-98.0); Monocytes Percent Auto 12.1 % (2-11); Neutrophils Absolute Auto 5.7 x10*3/uL (2.0-8.3); Neutrophils Percent Auto 71.1 % (45-73); Platelet Count 163 X10*3/uL (160-400); Red Blood Count 4.84 X10*6/uL (4.60-5.80); Red Cell Distribution Width 14.1 % (11.0-16.0)
--- NOTE | 2023-01-16 19:19 | ED.RECABL ---
HPI - Recheck/Abnormal Lab/Rx General Chief Complaint: Recheck/Abnormal Lab/Rx Stated Complaint: abnormal labs Time Seen by Provider: 01/16/23 18:40 History of Present Illness HPI narrative: Patient is a 58-year-old male with a history acute hepatic encephalopathy in the past history of liver cirrhosis. History of diabetes. Presented today after patient's primary GI doctor noted abnormal labs. Patient was noted to have a low-sodium and also an elevated potassium above 5. He denies any chest pain. Does have some diarrhea that is yellow in color. Patient denies any fever chills. No pain on urination. No cough no congestion or SOB symptoms. Patient is from home. Related Data Home Medications Medication Instructions Recorded Confirmed atorvastatin 20 mg tablet 20 mg PO DAILY 06/29/20 12/27/22 hydroxyzine HCl 25 mg tablet 25 mg PO TID PRN itch 09/09/22 10/19/22 insulin glargine-yfgn 100 unit/mL 45 unit subcut BID 09/09/22 10/19/22 (3 mL) subcutaneous pen (Semglee (insulin glargine-yfgn) Pen) spironolactone 50 mg tablet 50 mg PO BEDTIME 09/09/22 10/19/22 trazodone 50 mg tablet 50 mg PO BEDTIME PRN insomnia 09/09/22 10/19/22 furosemide 20 mg tablet 20 mg PO DAILY 10/03/22 12/27/22 glipizide 2.5 mg tablet, extended 2.5 mg PO DAILY 10/03/22 10/19/22 release 24 hr nadolol 20 mg tablet 20 mg PO DAILY 10/03/22 10/19/22 pantoprazole 40 mg tablet,delayed 40 mg PO DAILY@0630 10/03/22 10/19/22 release semaglutide 2 mg/dose (8 mg/3 mL) 2 mg subcut Q7D 10/03/22 10/19/22 subcutaneous pen injector (Ozempic) insulin lispro 100 unit/mL See Rx Instructions .Route .COMPLEX 10/19/22 12/27/22 subcutaneous pen (Humalog KwikPen (U-100) Insulin) gabapentin 300 mg capsule 300 mg PO QPM 12/27/22 12/27/22 nadolol 20 mg tablet 20 mg PO DAILY 12/27/22 12/27/22 Previous Rx's Medication Instructions Recorded ferrous sulfate 325 mg (65 mg 325 mg PO BID #60 tabs 09/12/22 iron) tablet lactulose 20 gram/30 mL oral 20 g (30 mL) PO BID #2,880 mL 10/04/22 solution rifaximin 550 mg tablet (Xifaxan) 550 mg PO BID #60 tabs 10/04/22 Allergies Allergy/AdvReac Type Severity Reaction Status Date / Time codeine [CODEINE] Allergy Mild ITCHINESS, Verified 01/09/23 20:38 itching penicillin G Allergy Mild itching Verified 01/09/23 20:38 Review of Systems Review of Systems: positive diarrhea Yes all other systems are reviewed and are negative PMFSH Past Medical History Attestation statement: The following information was validated with the patient. Medical History Abdominal ascites Black stools Chronic hyponatremia Cirrhosis Cirrhosis of liver Diabetes Elevated cholesterol Hepatitis History of alcohol abuse HTN (hypertension) Myocardial infarction Normocytic anemia Varices, esophageal Surgical History H/O colonoscopy History of esophagogastroduodenoscopy (EGD) History of PTCA Hx of hand surgery Social History Social History Household Members: Family Housing: House Do you presently have visiting nurse or other home services: No Unable to assess alcohol history related to: Unable to respond Alcohol intake: former Patient Tobacco Use Status: Former Tobacco user Quit Date: 2013 Tobacco use type: Cigarette Smoked in Last 30 Days: No Second Hand Smoke Exposure: No Use of substances other than those prescribed or required for medical reasons: No Advance Directives: Yes Advance Directives on File: Yes Advance Directives Date on File: 09/13/22 service: Yes Current occupational status: disabled Physical Exam Vital Signs: Vital Signs: Last Vital Signs Temp 97.9 F 01/16/23 21:01 Pulse 84 01/16/23 21:01 Resp 16 01/16/23 21:01 BP 120/70 01/16/23 21:01 Pulse Ox 100 01/16/23 21:01 O2 Del Method Room Air 01/16/23 21:01 BMI result Body Mass Index 22.1 Appearance: Alert. Oriented X3. No acute distress. Eyes: Pupils equal, round and reactive to light. ENT: Pharynx normal. Neck: Normal inspection. Neck supple. No lymph nodes noted. No crepitus CVS: Normal heart rate and rhythm. Pulses normal. Normal S1 and S2 Respiratory: No respiratory distress. Breath sounds normal. No Wheezing. No rales Abdomen: Soft and nontender. No rigidity. No distention. good BS x4 Skin: Skin warm and dry. Normal skin color. Normal skin turgor. Extremities: No lower extremity edema. Neurovascular intact to all extremities. No Lacerations. No Rash Neuro: Oriented X 3. No motor deficit. No sensory deficit. Moving all extermities. No slurred speech Medications Administered Discontinued Medications Generic Name Dose Route Start Last Admin Trade Name Freq PRN Reason Stop Dose Admin Sodium Chloride 1,000 mls @ 999 mls/hr 01/16/23 19:30 01/16/23 21:50 Ns IV 01/16/23 20:30 999 mls/hr .Q1H1M IVELISSE Administration Sodium Chloride 1,000 mls @ 999 mls/hr 01/16/23 19:30 01/16/23 22:53 Ns IV 01/16/23 20:30 Infused .Q1H1M IVELISSE Infusion Insulin Human Regular 5 unit 01/16/23 19:19 01/16/23 22:04 Insulin Regular, Human 100 Unit/Ml 3 Ml Vial IVPUSH 01/16/23 19:20 3 unit ONCE ONE Administration Iohexol 100 ml 01/16/23 22:57 01/16/23 22:57 Iohexol 350 Mg/Ml 100 Ml Infus..Btl IV 01/16/23 22:58 85 ml ONCE ONE Administration Medical Decision Making Medical Decision Making [facility] Narrative: Patient presents today with having abnormal labs. Namely the sodium was 122. Potassium outpatient was 6.1. Patient's electrolyte was repeated in emergency department. The sodium was 122 but the glucose was 360. When corrected for the pseudo hyponatremia patient's sodium is actually approximately 126. Insulin was given some fluid was given for the hyperglycemia. Patient's potassium was actually 4.8 there is no evidence for hyperkalemia more likely that was secondary to hemolysis. CT scan of the abdomen pelvis was done. It did not show any acute evidence of obstruction abscess perforation. Patient's case and lab discussed with Dr. Zuluaga from GI. Will follow patient on an outpatient basis okay with following up for the low sodium with him. Currently in stable condition. Patient's ultrasound from this morning was reviewed. There is no acute findings. Currently in stable condition. Will discharge home. Differential Diagnosis Differential Diagnoses: The differential diagnosis associated with the presentation includes Obstruction, abscess, perforation, hyponatremia, hyperkalemia Admission/Observation Consideration of admission/observation: Escalation of care including admission/observation considered Consult Healthcare Provider Management of the patient was discussed with: [employer] GI Lab Data MDM Lab Attestation statement: I reviewed the patient's lab results. 01/16/23 18:02 01/16/23 18:02 Labs: Lab Results 01/16/23 01/16/23 01/16/23 Range/Units 18:02 18:02 18:02 WBC 8.0 (4.8-10.8) X10*3/uL RBC 4.84 (4.60-5.80) X10*6/uL Hgb 15.3 (14.0-18.0) g/dl Hct 41.3 L (42.0-52.0) % MCV 85.3 (80.0-98.0) fL MCH 31.6 (27.0-33.0) pg MCHC 37.0 H (31.0-36.0) g/dl RDW 14.1 (11.0-16.0) % Plt Count 163 D (160-400) X10*3/uL MPV 10.0 (9.4-12.4) fL Immature Gran % (Auto) 0.4 (0.0-0.4) % Neut % (Auto) 71.1 (45-73) % Lymph % (Auto) 14.4 L (20-40) % [place] % (Auto) 12.1 H (2-11) % Eos % (Auto) 1.4 (0-4) % Baso % (Auto) 0.6 (0-2) % Lymph # (Auto) 1.2 (1.2-4.9) X10*3/uL [place] # (Auto) 1.0 (0.1-1.2) X10*3/uL Eos # (Auto) 0.1 (0.0-0.4) X10*3/uL Baso # (Auto) 0.1 (0.0-0.2) X10*3/uL Abs Immat Gran (auto) 0.03 (0.00-0.03) X10*3/uL Absolute Neuts (auto) 5.7 (2.0-8.3) x10*3/uL Absolute Nucleated RBC 0.000 (0.0-0.012) X10*3/uL Nucleated RBC % (auto) 0.0 (0.0-0.2) /100WBC Sodium 122 L (135-145) mmol/L Potassium 4.8 (3.3-5.1) mmol/L Chloride 93 L (96-108) mmol/L Carbon Dioxide 20 L (22-29) mmol/L Anion Gap 14 (12-20) BUN 18 H (9-16) mg/dL Creatinine 1.40 (0.5-1.4) mg/dL Estim Creat Clear Calc 46.4 Estimated GFR 52 POC Glucose (60-115) mg/dL Random Glucose 360 H* (60-115) mg/dL Calcium 9.7 (8.4-10.2) mg/dL Magnesium 2.3 (1.6-2.6) mg/dL Total Bilirubin 2.0 H (0.0-1.0) mg/dL Direct Bilirubin 0.9 H (0.0-0.5) mg/dL AST 84 H (5-37) U/L ALT 61 H (0-40) U/L Alkaline Phosphatase 265 H (39-117) U/L Ammonia (13-55) umol/L Troponin I High Sens 14.7 D (<3.5-35.0) ng/L Total Protein 7.9 (6.5-8.0) g/dL Albumin 3.1 L (3.5-5.0) g/dL Urine Color Urine Appearance Urine pH (5.0-9.0) Ur Specific [place] (1.005-1.025) Urine Protein (Neg-Trace) mg/dL Urine Glucose (UA) (Negative) mg/dL Urine Ketones (Negative) mg/dL Urine Blood (Negative) Urine Nitrite (Negative) Ur Leukocyte Esterase (Negative) Urine RBC (0-2) /HPF Urine WBC (0-5) /HPF Ur Squamous Epith Cells (0-2) /HPF Urine Bacteria (None Seen) Hyaline Casts (0-2) /LPF 01/16/23 01/16/23 01/16/23 Range/Units 18:02 20:32 21:14 WBC (4.8-10.8) X10*3/uL RBC (4.60-5.80) X10*6/uL Hgb (14.0-18.0) g/dl Hct (42.0-52.0) % MCV (80.0-98.0) fL MCH (27.0-33.0) pg MCHC (31.0-36.0) g/dl RDW (11.0-16.0) % Plt Count (160-400) X10*3/uL MPV (9.4-12.4) fL Immature Gran % (Auto) (0.0-0.4) % Neut % (Auto) (45-73) % Lymph % (Auto) (20-40) % [place] % (Auto) (2-11) % Eos % (Auto) (0-4) % Baso % (Auto) (0-2) % Lymph # (Auto) (1.2-4.9) X10*3/uL [place] # (Auto) (0.1-1.2) X10*3/uL Eos # (Auto) (0.0-0.4) X10*3/uL Baso # (Auto) (0.0-0.2) X10*3/uL Abs Immat Gran (auto) (0.00-0.03) X10*3/uL Absolute Neuts (auto) (2.0-8.3) x10*3/uL Absolute Nucleated RBC (0.0-0.012) X10*3/uL Nucleated RBC % (auto) (0.0-0.2) /100WBC Sodium (135-145) mmol/L Potassium (3.3-5.1) mmol/L Chloride (96-108) mmol/L Carbon Dioxide (22-29) mmol/L Anion Gap (12-20) BUN (9-16) mg/dL Creatinine (0.5-1.4) mg/dL Estim Creat Clear Calc Estimated GFR POC Glucose 280 H (60-115) mg/dL Random Glucose (60-115) mg/dL Calcium (8.4-10.2) mg/dL Magnesium (1.6-2.6) mg/dL Total Bilirubin (0.0-1.0) mg/dL Direct Bilirubin (0.0-0.5) mg/dL AST (5-37) U/L ALT (0-40) U/L Alkaline Phosphatase (39-117) U/L Ammonia 93 H (13-55) umol/L Troponin I High Sens (<3.5-35.0) ng/L Total Protein (6.5-8.0) g/dL Albumin (3.5-5.0) g/dL Urine Color Yellow Urine Appearance Clear Urine pH 5.5 (5.0-9.0) Ur Specific [place] >= 1.030 H (1.005-1.025) Urine Protein Negative (Neg-Trace) mg/dL Urine Glucose (UA) >=1000 H (Negative) mg/dL Urine Ketones Negative (Negative) mg/dL Urine Blood Negative (Negative) Urine Nitrite Negative (Negative) Ur Leukocyte Esterase Negative (Negative) Urine RBC 0-2 (0-2) /HPF Urine WBC 0-5 (0-5) /HPF Ur Squamous Epith Cells 0-2 (0-2) /HPF Urine Bacteria None Seen (None Seen) Hyaline Casts 3-5 (0-2) /LPF 01/16/23 Range/Units 22:57 WBC (4.8-10.8) X10*3/uL RBC (4.60-5.80) X10*6/uL Hgb (14.0-18.0) g/dl Hct (42.0-52.0) % MCV (80.0-98.0) fL MCH (27.0-33.0) pg MCHC (31.0-36.0) g/dl RDW (11.0-16.0) % Plt Count (160-400) X10*3/uL MPV (9.4-12.4) fL Immature Gran % (Auto) (0.0-0.4) % Neut % (Auto) (45-73) % Lymph % (Auto) (20-40) % [place] % (Auto) (2-11) % Eos % (Auto) (0-4) % Baso % (Auto) (0-2) % Lymph # (Auto) (1.2-4.9) X10*3/uL [place] # (Auto) (0.1-1.2) X10*3/uL Eos # (Auto) (0.0-0.4) X10*3/uL Baso # (Auto) (0.0-0.2) X10*3/uL Abs Immat Gran (auto) (0.00-0.03) X10*3/uL Absolute Neuts (auto) (2.0-8.3) x10*3/uL Absolute Nucleated RBC (0.0-0.012) X10*3/uL Nucleated RBC % (auto) (0.0-0.2) /100WBC Sodium (135-145) mmol/L Potassium (3.3-5.1) mmol/L Chloride (96-108) mmol/L Carbon Dioxide (22-29) mmol/L Anion Gap (12-20) BUN (9-16) mg/dL Creatinine (0.5-1.4) mg/dL Estim Creat Clear Calc Estimated GFR POC Glucose 210 H (60-115) mg/dL Random Glucose (60-115) mg/dL Calcium (8.4-10.2) mg/dL Magnesium (1.6-2.6) mg/dL Total Bilirubin (0.0-1.0) mg/dL Direct Bilirubin (0.0-0.5) mg/dL AST (5-37) U/L ALT (0-40) U/L Alkaline Phosphatase (39-117) U/L Ammonia (13-55) umol/L Troponin I High Sens (<3.5-35.0) ng/L Total Protein (6.5-8.0) g/dL Albumin (3.5-5.0) g/dL Urine Color Urine Appearance Urine pH (5.0-9.0) Ur Specific [place] (1.005-1.025) Urine Protein (Neg-Trace) mg/dL Urine Glucose (UA) (Negative) mg/dL Urine Ketones (Negative) mg/dL Urine Blood (Negative) Urine Nitrite (Negative) Ur Leukocyte Esterase (Negative) Urine RBC (0-2) /HPF Urine WBC (0-5) /HPF Ur Squamous Epith Cells (0-2) /HPF Urine Bacteria (None Seen) Hyaline Casts (0-2) /LPF Independent Interpretation I performed an independent interpretation of an: EKG (My interpretation of patient's EKG showed a sinus rhythm heart rate was 80 IN QRS QTC within normal limits there is no acute peaked T-waves noted.) and CT Scan (CT scan of the abdomen showed no gross obstruction abscess perforation) Radiology Impression Discussion of test interpretation with radiology: I have reviewed the radiologist's reading. Independent Historian Clinical information obtained from an independent historian. History obtained from or confirmed by: Spouse External Record Review External record reviewed: Inpatient record and Office record Chronic Conditions Liver cirrhosis Discharge Plan Discharge Clinical Impression: Cirrhosis of liver, Acute hyponatremia Patient Disposition: Home, Self-Care Instructions: Cirrhosis (ED), Hyponatremia (ED) Prescriptions: No Action atorvastatin 20 mg tablet 20 mg PO DAILY trazodone 50 mg tablet 50 mg PO BEDTIME PRN (Reason: insomnia) hydroxyzine HCl 25 mg tablet 25 mg PO TID PRN (Reason: itch) spironolactone 50 mg tablet 50 mg PO BEDTIME insulin glargine-yfgn [Semglee(insulin glarg-yfgn)Pen] 100 unit/mL (3 mL) insulin pen 45 unit subcut BID ferrous sulfate 325 mg (65 mg iron) tablet 325 mg PO BID Qty: 60 0RF nadolol 20 mg tablet 20 mg PO DAILY glipizide 2.5 mg tablet extended release 24hr 2.5 mg PO DAILY pantoprazole 40 mg tablet,delayed release (DR/EC) 40 mg PO DAILY@0630 Ozempic 2 mg/dose (8 mg/3 mL) pen injector 2 mg subcut Q7D furosemide 20 mg tablet 20 mg PO DAILY Xifaxan 550 mg Tablet 550 mg PO BID Qty: 60 0RF lactulose 20 gram/30 mL solution 20 g PO BID Qty: 2880 0RF insulin lispro [Humalog KwikPen Insulin] 100 unit/mL insulin pen See Rx Instructions .ROUTE .COMPLEX Rx Instructions: SLIDING SCALE nadolol 20 mg tablet 20 mg PO DAILY gabapentin 300 mg capsule 300 mg PO QPM Referrals: Maverick Zuluaga [Physician] - 01/20/23
--- NOTE | 2023-01-16 20:25 | PC.NURSE ---
urine sent. attempting iv
[2023-01-16 21:01] VITALS: BP 120/70; PULSE 84; RESP 16; TEMP 36.6; O2SAT 100
[2023-01-16 21:02] LABS: Appearance Urine Clear; Color Urine Yellow; Glucose Urine UA >=1000 mg/dL (Negative); Leukocyte Esterase Urine Negative (Negative); Nitrite Urine Negative (Negative); PH 5.5 (5.0-9.0); Specific Gravity - Urine >= 1.030 (1.005-1.025); UMIC TRIGGER UACC YES; Urine Blood Negative (Negative); Urine Ketones Negative (Negative); Urine Protein Negative (Neg-Trace)
--- NOTE | 2023-01-16 21:15 | PC.NURSE ---
attending whu aware unable to get iv per rn- asked md if still wants insulin to place subcu until next staff can obtain iv access. handing pt off to rn
[2023-01-16 21:16] LABS: Bacteria Urine None Seen (None Seen); RBC Urine 0-2 /HPF (0-2); Squamous Epithelial Cell Urine 0-2 /HPF (0-2); WBC Urine 0-5 /HPF (0-5)
[2023-01-16 21:20] LABS: Glucose, Whole Blood 280 mg/dL (60-115)
[2023-01-16] MEDS: 0.9 % Sodium Chloride 1,000 ML 999 ML IV ×2 (21:50→21:52)
[2023-01-16] MEDS: Insulin Regular, Human 100 UNIT/ML 3 ML VIAL IVPUSH (22:04)
--- NOTE | 2023-01-16 22:13 | PC.NURSE ---
This newswriter assumed care at 2129, Pt reporting 10/10 constant ABD pain, pt reporting new numbness to right upper shoulder. No new injury/trauma to the area, last BM yesterday morning, reports diarrhea. VSS. 22 G IV placed in left forearm, intact and patent, IV fluids running as ordered. Medications given per AUG. Pt awaiting CT scan, pt and family aware of plan. WCTM.
[2023-01-16] MEDS: iohexoL 350 MG/ML 100 ML INFUS..BTL IV (22:57)
[2023-01-16 23:04] LABS: Glucose, Whole Blood 210 mg/dL (60-115)
[2023-01-17 00:17] VITALS: BP 121/78; PULSE 78; RESP 18; TEMP 36.5; O2SAT 100
== END 2023-01-17 00:43 | disposition home or self-care (01) ==
PROVIDERS: Physician Assistant Medical; Emergency Provider Emergency Medicine Emergency Medical Services
DX: K74.60 Unspecified cirrhosis of liver (principal); R79.89 Other specified abnormal findings of blood chemistry; R07.89 Other chest pain; E87.1 Hypo-osmolality and hyponatremia; R10.2 Pelvic and perineal pain; E86.0 Dehydration; Z87.891 Personal history of nicotine dependence; Z79.899 Other long term (current) drug therapy
CPT/HCPCS: 36415; 71046; 74177; 80048; 80076; 81001; 81003; 82140; 82947; 83735; 84484; 85025; 93005; 96361; 96374; 99285; Q9967

== ENCOUNTER → 2023-01-16 17:35 | Outpatient (BNV) | payer OTHER, SELFPAY | PROVIDERS: Emergency Provider Emergency Medicine Emergency Medical Services; Visit Provider Internal Medicine Cardiovascular Disease | DX: R07.9 Chest pain, unspecified (principal) | CPT/HCPCS: 93010 ==

== ENCOUNTER 2023-01-20 21:02 | Emergency (ER) | payer OTHER, SELFPAY ==
--- NOTE | 2023-01-20 | ECG_ITS ---
Test Reason : CP/SOB Blood Pressure : / mmHG Vent. Rate : 101 BPM Atrial Rate : 101 BPM P-R Int : 144 ms QRS Dur : 074 ms QT Int : 352 ms P-R-T Axes : 049 050 032 degrees QTc Int : 456 ms Sinus tachycardia Nonspecific T wave abnormality Abnormal ECG When compared with ECG of 16-JAN-2023 17:52, Nonspecific T wave abnormality now evident in Inferior leads T wave amplitude has decreased in Anterior leads Referred By: Generic ED Physician Electronically Signed By:IRENE DURAN
--- NOTE | ~2023-01-20 | XR_ITS ---
EXAMINATION: XR CHEST CLINICAL INFORMATION: Chest pain and shortness of breath COMPARISON: 01/16/2023 TECHNIQUE: Frontal view of the chest was obtained. FINDINGS: Cardiac leads overlie the chest. The lungs are well expanded. There is no focal consolidation, edema, or effusion. No pneumothorax. The cardiomediastinal silhouette is within normal limits. No acute osseous abnormality. XR/XR chest 1V IMPRESSION: Clear lungs.
[2023-01-20 21:08] VITALS: BMI 19.2
[2023-01-20 21:27] VITALS: BP 127/72; PULSE 100; RESP 20; TEMP 36.6; O2SAT 99
[2023-01-20 21:33] VITALS: BP 136/81; PULSE 97; RESP 17; TEMP 36.8; O2SAT 98
[2023-01-20 21:33] LABS: Mean Corpuscular Hemoglobin 32.1 pg (27.0-33.0); Mean Platelet Volume 10.2 fL (9.4-12.4); PLT CLUMP 1; Red Cell Distribution Width 13.6 % (11.0-16.0); SCAN SMEAR FLAG 1
[2023-01-20 21:35] LABS: Basophils Percent Auto 0.6 % (0-2); Eosinophils Absolute Auto 0.1 X10*3/uL (0.0-0.4); Eosinophils Percent Auto 1.9 % (0-4); Hematocrit 33.5 % (42.0-52.0); Hemoglobin 12.5 g/dl (14.0-18.0); Imm Gran Abs Auto 0.02 X10*3/uL (0.00-0.03); Imm Gran Pct Auto 0.3 % (0.0-0.4); Lymphocytes Absolute Auto 0.8 X10*3/uL (1.2-4.9); Lymphocytes Percent Auto 11.6 % (20-40); Mean Corpuscular HGB Conc 37.3 g/dl (31.0-36.0); Mean Corpuscular Volume 85.9 fL (80.0-98.0); Monocytes Absolute Auto 0.7 X10*3/uL (0.1-1.2); Monocytes Percent Auto 9.9 % (2-11); Neutrophils Absolute Auto 5.2 x10*3/uL (2.0-8.3); Neutrophils Percent Auto 75.7 % (45-73)
[2023-01-20 21:38] LABS: Platelet Count 103 X10*3/uL (160-400); White Blood Count 6.8 X10*3/uL (4.8-10.8)
[2023-01-20 21:39] LABS: MANUAL DIFF FLAG NO
--- NOTE | 2023-01-20 21:40 | ED.CHESTPAIN ---
HPI - Chest Pain General Chief Complaint: Chest Pain Stated Complaint: sob,chest pain Time Seen by Provider: 01/20/23 21:37 Source: patient and family Mode of arrival: ambulatory Limitations: no limitations History of Present Illness HPI narrative: Patient is 58 years old with history of diabetes alcohol related liver disease, hepatitis-C, hyponatremia and hyperammonemia, coronary artery disease status post stent placement, been here multiple times in last 3 months was seen here last time on 01/16 or weakness noticed to have sodium of 122. Patient complaining of chest pain off and on for long time this times his chest pain started just prior to arrival increases on palpation and deep breath denies any confusion complaining of body aches all over poor oral intake no cough patient been taking lactulose and having loose bowels. No vomiting Related Data Home Medications Medication Instructions Recorded Confirmed atorvastatin 20 mg tablet 20 mg PO DAILY 06/29/20 12/27/22 hydroxyzine HCl 25 mg tablet 25 mg PO TID PRN itch 09/09/22 10/19/22 insulin glargine-yfgn 100 unit/mL 45 unit subcut BID 09/09/22 10/19/22 (3 mL) subcutaneous pen (Semglee (insulin glargine-yfgn) Pen) spironolactone 50 mg tablet 50 mg PO BEDTIME 09/09/22 10/19/22 trazodone 50 mg tablet 50 mg PO BEDTIME PRN insomnia 09/09/22 10/19/22 furosemide 20 mg tablet 20 mg PO DAILY 10/03/22 12/27/22 glipizide 2.5 mg tablet, extended 2.5 mg PO DAILY 10/03/22 10/19/22 release 24 hr nadolol 20 mg tablet 20 mg PO DAILY 10/03/22 10/19/22 pantoprazole 40 mg tablet,delayed 40 mg PO DAILY@0630 10/03/22 10/19/22 release semaglutide 2 mg/dose (8 mg/3 mL) 2 mg subcut Q7D 10/03/22 10/19/22 subcutaneous pen injector (Ozempic) insulin lispro 100 unit/mL See Rx Instructions .Route .COMPLEX 10/19/22 12/27/22 subcutaneous pen (Humalog KwikPen (U-100) Insulin) gabapentin 300 mg capsule 300 mg PO QPM 12/27/22 12/27/22 nadolol 20 mg tablet 20 mg PO DAILY 12/27/22 12/27/22 Previous Rx's Medication Instructions Recorded ferrous sulfate 325 mg (65 mg 325 mg PO BID #60 tabs 09/12/22 iron) tablet lactulose 20 gram/30 mL oral 20 g (30 mL) PO BID #2,880 mL 10/04/22 solution rifaximin 550 mg tablet (Xifaxan) 550 mg PO BID #60 tabs 10/04/22 hydroxyzine HCl 25 mg tablet 25 mg PO TID PRN anxiety #20 tabs 01/21/23 Allergies Allergy/AdvReac Type Severity Reaction Status Date / Time codeine [CODEINE] Allergy Mild ITCHINESS, Verified 01/20/23 21:29 itching penicillin G Allergy Mild itching Verified 01/20/23 21:29 Review of Systems Review of Systems: Yes all other systems are reviewed and are negative PMFSH Past Medical History Medical History Abdominal ascites Black stools Chronic hyponatremia Cirrhosis Cirrhosis of liver Diabetes Elevated cholesterol Hepatitis History of alcohol abuse HTN (hypertension) Myocardial infarction Normocytic anemia Varices, esophageal Surgical History H/O colonoscopy History of esophagogastroduodenoscopy (EGD) History of PTCA Hx of hand surgery Social History Social History Household Members: Family Housing: House Do you presently have visiting nurse or other home services: No Unable to assess alcohol history related to: Unable to respond Alcohol intake: former Patient Tobacco Use Status: Former Tobacco user Quit Date: 2013 Tobacco use type: Cigarette Smoked in Last 30 Days: No Second Hand Smoke Exposure: No Advance Directives: Yes Advance Directives on File: Yes Advance Directives Date on File: 09/13/22 service: Yes Current occupational status: disabled Physical Exam Vital Signs: Vital Signs: Last Vital Signs Temp 98.4 F 01/21/23 07:22 Pulse 90 01/21/23 07:22 Resp 13 01/21/23 07:22 BP 110/65 01/21/23 07:22 Pulse Ox 100 01/21/23 07:22 O2 Del Method Room Air 01/21/23 07:22 BMI result Body Mass Index 19.2 Appearance: Alert. Oriented X3. No acute distress. Thin emaciated no significant distress Eyes: PERRLA, No Nystagmus ENT: Pharynx normal. Oral Mucosa moist Neck: Normal inspection. Neck supple. CVS: Normal heart rate and rhythm. Pulses normal. Respiratory: No respiratory distress. Equal air entry bilateral, no wheezing/rales/rhonchi Abdomen: Soft and nontender. Bowel sounds are present, no mass palpable, no CVA tenderness Skin: Skin warm and dry. Normal skin color. Normal skin turgor. Extremities: No lower extremity edema. No calf tenderness Neuro: Oriented X 3. No motor deficit. No sensory deficit.No cerebellar signs , cranial nerves II-XII intact Medications Administered Discontinued Medications Generic Name Dose Route Start Last Admin Trade Name Freq PRN Reason Stop Dose Admin Sodium Chloride 1,000 mls @ 999 mls/hr 01/20/23 21:53 01/21/23 00:15 Ns IV 01/20/23 22:53 Infused .Q1H1M ONE Infusion Sodium Chloride 1,000 mls @ 999 mls/hr 01/21/23 01:42 01/21/23 03:52 Ns IV 01/21/23 02:42 Infused .Q1H1M ONE Infusion Morphine Sulfate 4 mg 01/20/23 21:56 01/20/23 22:46 Morphine Sulfate 4 Mg/Ml Cartridge IVPUSH 01/20/23 21:57 4 mg ONCE ONE Administration Protocol Ondansetron HCl 4 mg 01/20/23 21:56 01/20/23 22:46 Ondansetron Hcl 4 Mg/2 Ml Vial IVPUSH 01/20/23 21:57 4 mg ONCE ONE Administration Medical Decision Making Medical Decision Making [facility] Narrative: Patient's hypovolemic hyponatremia with sodium of 123 improved after IV infusion of sodium chloride 2 L repeat labs showed sodium of 129 patient feeling much better will discharge patient home advised to increase in oral intake Differential Diagnosis Differential Diagnoses: The differential diagnosis associated with the presentation includes Metabolic encephalopathy/hyperammonemia/hyponatremia Lab Data MDM Lab Attestation statement: I reviewed the patient's lab results. 01/20/23 21:22 01/20/23 21:22 Labs: Lab Results 01/20/23 01/20/23 01/20/23 Range/Units 21:22 21:22 21:22 WBC 6.8 (4.8-10.8) X10*3/uL RBC 3.90 L (4.60-5.80) X10*6/uL Hgb 12.5 L (14.0-18.0) g/dl Hct 33.5 L (42.0-52.0) % MCV 85.9 (80.0-98.0) fL MCH 32.1 (27.0-33.0) pg MCHC 37.3 H (31.0-36.0) g/dl RDW 13.6 (11.0-16.0) % Plt Count 103 L D (160-400) X10*3/uL MPV 10.2 (9.4-12.4) fL Immature Gran % (Auto) 0.3 (0.0-0.4) % Neut % (Auto) 75.7 H (45-73) % Lymph % (Auto) 11.6 L (20-40) % [place] % (Auto) 9.9 (2-11) % Eos % (Auto) 1.9 (0-4) % Baso % (Auto) 0.6 (0-2) % Lymph # (Auto) 0.8 L (1.2-4.9) X10*3/uL [place] # (Auto) 0.7 (0.1-1.2) X10*3/uL Eos # (Auto) 0.1 (0.0-0.4) X10*3/uL Baso # (Auto) 0.0 (0.0-0.2) X10*3/uL Abs Immat Gran (auto) 0.02 (0.00-0.03) X10*3/uL Absolute Neuts (auto) 5.2 (2.0-8.3) x10*3/uL Absolute Nucleated RBC 0.000 (0.0-0.012) X10*3/uL Nucleated RBC % (auto) 0.0 (0.0-0.2) /100WBC Sodium 123 L (135-145) mmol/L Potassium 4.3 (3.3-5.1) mmol/L Chloride 94 L (96-108) mmol/L Carbon Dioxide 22 (22-29) mmol/L Anion Gap 11 L (12-20) BUN 11 (9-16) mg/dL Creatinine 0.84 (0.5-1.4) mg/dL Estim Creat Clear Calc 78.0 Estimated GFR > 60 POC Glucose (60-115) mg/dL Random Glucose 340 H (60-115) mg/dL Osmolality (281-305) mosm/kg Calcium 8.7 D (8.4-10.2) mg/dL Total Bilirubin 1.7 H (0.0-1.0) mg/dL Direct Bilirubin 0.8 H (0.0-0.5) mg/dL AST 111 H (5-37) U/L ALT 91 H (0-40) U/L Alkaline Phosphatase 284 H (39-117) U/L Ammonia Troponin I High Sens 16.6 (<3.5-35.0) ng/L Total Protein 6.9 (6.5-8.0) g/dL Albumin 2.8 L (3.5-5.0) g/dL Lipase 34 (8-78) U/L Urine Color Urine Appearance Urine pH (5.0-9.0) Ur Specific [place] (1.005-1.025) Urine Protein (Neg-Trace) mg/dL Urine Glucose (UA) (Negative) mg/dL Urine Ketones (Negative) mg/dL Urine Blood (Negative) Urine Nitrite (Negative) Ur Leukocyte Esterase (Negative) Urine Osmolality (373-1093) mosm/kg Ur Random Sodium mmol/L 01/20/23 01/20/23 01/21/23 Range/Units 21:22 22:37 00:24 WBC (4.8-10.8) X10*3/uL RBC (4.60-5.80) X10*6/uL Hgb (14.0-18.0) g/dl Hct (42.0-52.0) % MCV (80.0-98.0) fL MCH (27.0-33.0) pg MCHC (31.0-36.0) g/dl RDW (11.0-16.0) % Plt Count (160-400) X10*3/uL MPV (9.4-12.4) fL Immature Gran % (Auto) (0.0-0.4) % Neut % (Auto) (45-73) % Lymph % (Auto) (20-40) % [place] % (Auto) (2-11) % Eos % (Auto) (0-4) % Baso % (Auto) (0-2) % Lymph # (Auto) (1.2-4.9) X10*3/uL [place] # (Auto) (0.1-1.2) X10*3/uL Eos # (Auto) (0.0-0.4) X10*3/uL Baso # (Auto) (0.0-0.2) X10*3/uL Abs Immat Gran (auto) (0.00-0.03) X10*3/uL Absolute Neuts (auto) (2.0-8.3) x10*3/uL Absolute Nucleated RBC (0.0-0.012) X10*3/uL Nucleated RBC % (auto) (0.0-0.2) /100WBC Sodium (135-145) mmol/L Potassium (3.3-5.1) mmol/L Chloride (96-108) mmol/L Carbon Dioxide (22-29) mmol/L Anion Gap (12-20) BUN (9-16) mg/dL Creatinine (0.5-1.4) mg/dL Estim Creat Clear Calc Estimated GFR POC Glucose (60-115) mg/dL Random Glucose (60-115) mg/dL Osmolality 270 L (281-305) mosm/kg Calcium (8.4-10.2) mg/dL Total Bilirubin (0.0-1.0) mg/dL Direct Bilirubin (0.0-0.5) mg/dL AST (5-37) U/L ALT (0-40) U/L Alkaline Phosphatase (39-117) U/L Ammonia Cancelled 50 Troponin I High Sens (<3.5-35.0) ng/L Total Protein (6.5-8.0) g/dL Albumin (3.5-5.0) g/dL Lipase (8-78) U/L Urine Color Urine Appearance Urine pH (5.0-9.0) Ur Specific [place] (1.005-1.025) Urine Protein (Neg-Trace) mg/dL Urine Glucose (UA) (Negative) mg/dL Urine Ketones (Negative) mg/dL Urine Blood (Negative) Urine Nitrite (Negative) Ur Leukocyte Esterase (Negative) Urine Osmolality (373-1093) mosm/kg Ur Random Sodium mmol/L 01/21/23 01/21/23 01/21/23 Range/Units 00:24 00:46 00:46 WBC (4.8-10.8) X10*3/uL RBC (4.60-5.80) X10*6/uL Hgb (14.0-18.0) g/dl Hct (42.0-52.0) % MCV (80.0-98.0) fL MCH (27.0-33.0) pg MCHC (31.0-36.0) g/dl RDW (11.0-16.0) % Plt Count (160-400) X10*3/uL MPV (9.4-12.4) fL Immature Gran % (Auto) (0.0-0.4) % Neut % (Auto) (45-73) % Lymph % (Auto) (20-40) % [place] % (Auto) (2-11) % Eos % (Auto) (0-4) % Baso % (Auto) (0-2) % Lymph # (Auto) (1.2-4.9) X10*3/uL [place] # (Auto) (0.1-1.2) X10*3/uL Eos # (Auto) (0.0-0.4) X10*3/uL Baso # (Auto) (0.0-0.2) X10*3/uL Abs Immat Gran (auto) (0.00-0.03) X10*3/uL Absolute Neuts (auto) (2.0-8.3) x10*3/uL Absolute Nucleated RBC (0.0-0.012) X10*3/uL Nucleated RBC % (auto) (0.0-0.2) /100WBC Sodium (135-145) mmol/L Potassium (3.3-5.1) mmol/L Chloride (96-108) mmol/L Carbon Dioxide (22-29) mmol/L Anion Gap (12-20) BUN (9-16) mg/dL Creatinine (0.5-1.4) mg/dL Estim Creat Clear Calc Estimated GFR POC Glucose (60-115) mg/dL Random Glucose (60-115) mg/dL Osmolality (281-305) mosm/kg Calcium (8.4-10.2) mg/dL Total Bilirubin (0.0-1.0) mg/dL Direct Bilirubin (0.0-0.5) mg/dL AST (5-37) U/L ALT (0-40) U/L Alkaline Phosphatase (39-117) U/L Ammonia Troponin I High Sens 20.2 (<3.5-35.0) ng/L Total Protein (6.5-8.0) g/dL Albumin (3.5-5.0) g/dL Lipase (8-78) U/L Urine Color Urine Appearance Urine pH (5.0-9.0) Ur Specific [place] (1.005-1.025) Urine Protein (Neg-Trace) mg/dL Urine Glucose (UA) (Negative) mg/dL Urine Ketones (Negative) mg/dL Urine Blood (Negative) Urine Nitrite (Negative) Ur Leukocyte Esterase (Negative) Urine Osmolality 122 L (373-1093) mosm/kg Ur Random Sodium < 20.0 mmol/L 01/21/23 01/21/23 01/21/23 Range/Units 00:46 00:56 06:05 WBC (4.8-10.8) X10*3/uL RBC (4.60-5.80) X10*6/uL Hgb (14.0-18.0) g/dl Hct (42.0-52.0) % MCV (80.0-98.0) fL MCH (27.0-33.0) pg MCHC (31.0-36.0) g/dl RDW (11.0-16.0) % Plt Count (160-400) X10*3/uL MPV (9.4-12.4) fL Immature Gran % (Auto) (0.0-0.4) % Neut % (Auto) (45-73) % Lymph % (Auto) (20-40) % [place] % (Auto) (2-11) % Eos % (Auto) (0-4) % Baso % (Auto) (0-2) % Lymph # (Auto) (1.2-4.9) X10*3/uL [place] # (Auto) (0.1-1.2) X10*3/uL Eos # (Auto) (0.0-0.4) X10*3/uL Baso # (Auto) (0.0-0.2) X10*3/uL Abs Immat Gran (auto) (0.00-0.03) X10*3/uL Absolute Neuts (auto) (2.0-8.3) x10*3/uL Absolute Nucleated RBC (0.0-0.012) X10*3/uL Nucleated RBC % (auto) (0.0-0.2) /100WBC Sodium 129 L (135-145) mmol/L Potassium 4.3 (3.3-5.1) mmol/L Chloride 100 (96-108) mmol/L Carbon Dioxide 25 (22-29) mmol/L Anion Gap 8 L (12-20) BUN 10 (9-16) mg/dL Creatinine 0.87 (0.5-1.4) mg/dL Estim Creat Clear Calc 75.3 Estimated GFR > 60 POC Glucose 258 H (60-115) mg/dL Random Glucose 250 H (60-115) mg/dL Osmolality (281-305) mosm/kg Calcium 8.1 L D (8.4-10.2) mg/dL Total Bilirubin (0.0-1.0) mg/dL Direct Bilirubin (0.0-0.5) mg/dL AST (5-37) U/L ALT (0-40) U/L Alkaline Phosphatase (39-117) U/L Ammonia Troponin I High Sens (<3.5-35.0) ng/L Total Protein (6.5-8.0) g/dL Albumin (3.5-5.0) g/dL Lipase (8-78) U/L Urine Color Yellow Urine Appearance Clear Urine pH 5.5 (5.0-9.0) Ur Specific [place] <= 1.005 (1.005-1.025) Urine Protein Negative (Neg-Trace) mg/dL Urine Glucose (UA) 500 H (Negative) mg/dL Urine Ketones Negative (Negative) mg/dL Urine Blood Negative (Negative) Urine Nitrite Negative (Negative) Ur Leukocyte Esterase Negative (Negative) Urine Osmolality (373-1093) mosm/kg Ur Random Sodium mmol/L Independent Interpretation I performed an independent interpretation of an: EKG Interpretation: Sent a cardia heart rate 101 beats per minute normal interval normal axis nonspecific T-wave changes Critical Care Time Critical Care Time Critical Care Time: Yes Total Critical Care Time: 45 Attestation: The patient was critically ill with a high probability of imminent or life threatening deterioration. I spent greater than 50 minutes of discontinuous time evaluating the patient,delivering critical care at the bedside, discussing and evaluating pertinent data with consultants. Critical care time does not include time spent performing separately billable procedures or teaching. Total time spent performing critical care was 45 minutes. Discharge Plan Discharge Clinical Impression: Weakness, Chronic hyponatremia, Adult failure to thrive Patient Disposition: Home, Self-Care Instructions: Hyponatremia (ED), Weakness (ED), Failure to Thrive in Older Adults (ED) Additional Instructions: Drink plenty of fluids Continue medications and follow up with PCP Take Atarax for anxiety and sleep Prescriptions: New hydroxyzine HCl 25 mg tablet 25 mg PO TID PRN (Reason: anxiety) Qty: 20 0RF No Action atorvastatin 20 mg tablet 20 mg PO DAILY trazodone 50 mg tablet 50 mg PO BEDTIME PRN (Reason: insomnia) hydroxyzine HCl 25 mg tablet 25 mg PO TID PRN (Reason: itch) spironolactone 50 mg tablet 50 mg PO BEDTIME insulin glargine-yfgn [Semglee(insulin glarg-yfgn)Pen] 100 unit/mL (3 mL) insulin pen 45 unit subcut BID ferrous sulfate 325 mg (65 mg iron) tablet 325 mg PO BID Qty: 60 0RF nadolol 20 mg tablet 20 mg PO DAILY glipizide 2.5 mg tablet extended release 24hr 2.5 mg PO DAILY pantoprazole 40 mg tablet,delayed release (DR/EC) 40 mg PO DAILY@0630 Ozempic 2 mg/dose (8 mg/3 mL) pen injector 2 mg subcut Q7D furosemide 20 mg tablet 20 mg PO DAILY Xifaxan 550 mg Tablet 550 mg PO BID Qty: 60 0RF lactulose 20 gram/30 mL solution 20 g PO BID Qty: 2880 0RF insulin lispro [Humalog KwikPen Insulin] 100 unit/mL insulin pen See Rx Instructions .ROUTE .COMPLEX Rx Instructions: SLIDING SCALE nadolol 20 mg tablet 20 mg PO DAILY gabapentin 300 mg capsule 300 mg PO QPM Interventions: ED Discharge Assessment Last Done: 01/21/23 08:07 Discharge Date/Time: 01/21/23 08:22
[2023-01-20 21:42] LABS: Alanine Aminotransferase 91 U/L (0-40); Albumin Level 2.8 g/dL (3.5-5.0); Alkaline Phosphatase 284 U/L (39-117); Anion Gap 11 (12-20); Aspartate Amino Transferase 111 U/L (5-37); Bilirubin Direct 0.8 mg/dL (0.0-0.5); Bilirubin Total 1.7 mg/dL (0.0-1.0); Blood Urea Nitrogen 11 mg/dL (9-16); Calcium 8.7 mg/dL (8.4-10.2); Carbon Dioxide 22 mmol/L (22-29); Chloride 94 mmol/L (96-108); Estimated Glomerular Filt Rate > 60; Glucose Random 340 mg/dL (60-115); Lipase 34 U/L (8-78); Potassium 4.3 mmol/L (3.3-5.1); Sodium 123 mmol/L (135-145); Total Protein 6.9 g/dL (6.5-8.0)
[2023-01-20 21:49] LABS: Troponin-I High Sensitivity 16.6 ng/L (<3.5-35.0)
[2023-01-20] MEDS: 0.9 % Sodium Chloride 1,000 ML 999 ML IV (22:42)
[2023-01-20 22:46] VITALS: BP 132/74; PULSE 91; RESP 16; O2SAT 100
[2023-01-20] MEDS: Morphine Sulfate 4 MG/ML CARTRIDGE IVPUSH (22:46)
[2023-01-20] MEDS: ondansetron HCL 4 MG/2 ML VIAL IVPUSH (22:46)
[2023-01-20 22:51] LABS: Ammonia 50 umol/L (13-55)
[2023-01-21] VITALS: BP 113/70; PULSE 91; RESP 18; TEMP 36.7; O2SAT 97
[2023-01-21 00:43] LABS: Osmolality, Serum 270 mosm/kg (281-305)
[2023-01-21 00:51] LABS: Appearance Urine Clear; Color Urine Yellow; Glucose Urine UA 500 mg/dL (Negative); Leukocyte Esterase Urine Negative (Negative); Nitrite Urine Negative (Negative); PH 5.5 (5.0-9.0); Specific Gravity - Urine <= 1.005 (1.005-1.025); Urine Blood Negative (Negative); Urine Ketones Negative (Negative); Urine Protein Negative (Neg-Trace)
[2023-01-21 01:01] LABS: Troponin-I High Sensitivity 20.2 ng/L (<3.5-35.0)
[2023-01-21 01:01] LABS: Glucose, Whole Blood 258 mg/dL (60-115)
[2023-01-21 01:06] LABS: Osmolality Urine 122 mosm/kg (373-1093); Sodium Urine Random < 20.0 mmol/L
[2023-01-21 02:00] VITALS: BP 120/66; PULSE 93; RESP 18; TEMP 36.7; O2SAT 100
[2023-01-21] MEDS: 0.9 % Sodium Chloride 1,000 ML 999 ML IV (02:08)
[2023-01-21 04:01] VITALS: BP 103/66; PULSE 91; RESP 12; TEMP 36.8; O2SAT 100
[2023-01-21 05:57] VITALS: BP 113/69; PULSE 90; RESP 14; TEMP 36.8; O2SAT 100
--- NOTE | 2023-01-21 06:05 | PC.NURSE ---
This RN assumed care upon patient's arrival. Patient has repeat BNP being drawn by phlebotomy at this time. Patient's dispo awaiting lab results. Throughout the night, patient was calm, alert, oriented, able to ambulate with x1 assist. Will continue to monitor per MD orders
[2023-01-21 06:31] LABS: Anion Gap 8 (12-20); Blood Urea Nitrogen 10 mg/dL (9-16); Calcium 8.1 mg/dL (8.4-10.2); Carbon Dioxide 25 mmol/L (22-29); Chloride 100 mmol/L (96-108); Creatinine Clr Calc Pharmacy 75.3; Estimated Glomerular Filt Rate > 60; Glucose Random 250 mg/dL (60-115); Potassium 4.3 mmol/L (3.3-5.1); Sodium 129 mmol/L (135-145)
[2023-01-21 07:22] VITALS: BP 110/65; PULSE 90; RESP 13; TEMP 36.9; O2SAT 100
--- NOTE | 2023-01-21 08:02 | PC.NURSE ---
PT A/O X 4 NO SOB/TIERA. SPEAKS IN FULL SENTENCES. PT AWARE OF PLAN OF CARE FOR D/C HOME. PT STATES THAT HIS DAUGHTER IS COMING TO PICK HIM UP. PT ATE TOAST, GIVEN CRACKERS AND DIET ALVERTO DANE.
== END 2023-01-21 08:22 | disposition home or self-care (01) ==
PROVIDERS: Emergency Provider Internal Medicine; PCP Physician Assistant Medical
DX: R53.1 Weakness (principal); E87.1 Hypo-osmolality and hyponatremia; E11.9 Type 2 diabetes mellitus without complications; I10 Essential (primary) hypertension; E78.5 Hyperlipidemia, unspecified; R62.7 Adult failure to thrive; Z68.1 Body mass index [BMI] 19.9 or less, adult; Z87.891 Personal history of nicotine dependence; Z79.899 Other long term (current) drug therapy; Z79.4 Long term (current) use of insulin
CPT/HCPCS: 36415; 71045; 80048; 80076; 81003; 82140; 82947; 83690; 83930; 83935; 84300; 84484; 85025; 93005; 96361; 96374; 96375; 99285; J2270; J2405

== ENCOUNTER 2023-01-24 16:17 | Outpatient (REF) | payer OTHER, SELFPAY ==
[2023-01-24 17:33] LABS: Anion Gap 9 (12-20); Blood Urea Nitrogen 9 mg/dL (9-16); Calcium 8.8 mg/dL (8.4-10.2); Carbon Dioxide 25 mmol/L (22-29); Chloride 99 mmol/L (96-108); Estimated Glomerular Filt Rate > 60; Glucose Random 371 mg/dL (60-115); Potassium 3.4 mmol/L (3.3-5.1); Sodium 130 mmol/L (135-145)
== END 2023-01-24 16:18 | disposition home or self-care (01) ==
LOC: HO.LAB 16:17
PROVIDERS: PCP Physician Assistant Medical; Visit Provider Internal Medicine
DX: K70.31 Alcoholic cirrhosis of liver with ascites (principal)
CPT/HCPCS: 36415; 80048

== ENCOUNTER 2023-02-03 12:17 | Outpatient (REF) | payer OTHER, SELFPAY ==
[2023-02-03 12:34] LABS: MANUAL DIFF FLAG NO
[2023-02-03 12:57] LABS: INTERNATIONAL NORM RATIO 1.2 (0.9-1.1); Prothrombin Time 14.9 SEC (11.1-13.3)
[2023-02-03 13:00] LABS: Basophils Percent Auto 0.6 % (0-2); Eosinophils Absolute Auto 0.2 X10*3/uL (0.0-0.4); Eosinophils Percent Auto 2.7 % (0-4); Hematocrit 33.2 % (42.0-52.0); Imm Gran Abs Auto 0.02 X10*3/uL (0.00-0.03); Imm Gran Pct Auto 0.3 % (0.0-0.4); Lymphocytes Absolute Auto 0.8 X10*3/uL (1.2-4.9); Lymphocytes Percent Auto 12.8 % (20-40); Mean Corpuscular HGB Conc 36.1 g/dl (31.0-36.0); Mean Corpuscular Hemoglobin 31.7 pg (27.0-33.0); Mean Corpuscular Volume 87.6 fL (80.0-98.0); Mean Platelet Volume 10.4 fL (9.4-12.4); Monocytes Absolute Auto 0.7 X10*3/uL (0.1-1.2); Monocytes Percent Auto 10.6 % (2-11); Neutrophils Absolute Auto 4.6 x10*3/uL (2.0-8.3); Partial Thromboplastin Time 29.8 SEC (26.0-36.4); Platelet Count 126 X10*3/uL (160-400); Red Blood Count 3.79 X10*6/uL (4.60-5.80); Red Cell Distribution Width 13.9 % (11.0-16.0); White Blood Count 6.2 X10*3/uL (4.8-10.8)
[2023-02-03 13:44] LABS: Alanine Aminotransferase 56 U/L (0-40); Albumin Level 2.5 g/dL (3.5-5.0); Alkaline Phosphatase 294 U/L (39-117); Anion Gap 9 (12-20); Aspartate Amino Transferase 96 U/L (5-37); Bilirubin Direct 0.8 mg/dL (0.0-0.5); Bilirubin Total 1.6 mg/dL (0.0-1.0); Blood Urea Nitrogen 12 mg/dL (9-16); Calcium 8.5 mg/dL (8.4-10.2); Carbon Dioxide 28 mmol/L (22-29); Chloride 100 mmol/L (96-108); Estimated Glomerular Filt Rate > 60; Glucose Random 174 mg/dL (60-115); Potassium 3.3 mmol/L (3.3-5.1); Sodium 134 mmol/L (135-145); Total Protein 6.3 g/dL (6.5-8.0)
== END 2023-02-03 12:18 | disposition home or self-care (01) ==
LOC: HO.LAB 12:17
PROVIDERS: PCP Physician Assistant Medical; Visit Provider Internal Medicine
DX: K70.31 Alcoholic cirrhosis of liver with ascites (principal); E87.1 Hypo-osmolality and hyponatremia
CPT/HCPCS: 36415; 80048; 80076; 85025; 85610; 85730

== ENCOUNTER 2023-02-05 13:05 | Day surgery (SDC) | payer OTHER, SELFPAY ==
--- NOTE | ~2023-02-05 | US_ITS ---
EXAMINATION: US ULTRASOUND-GUIDED PARACENTESIS CLINICAL INFORMATION: Ascites COMPARISON: CT scan of 01/16/2023 TECHNIQUE: Ultrasound-guided paracentesis. FINDINGS: Informed consent was obtained from the patient prior to the procedure. During this process, the procedure and potential alternatives were explained, along with the intended outcome and benefits. The risks of the procedure, as well as the risk of not doing the procedure, were discussed. The patient was given the opportunity to ask questions regarding the procedure and appeared competent to make medical decisions. A signed consent form which documents this discussion was placed in the medical record. Using ultrasound guidance and sterile technique a 4 [place] Yueh needle was directed into the right lower quadrant fluid collection with approximately 4.3 L of cloudy yellow fluid being removed. Fluid was sent for laboratory testing. US/US paracentesis abd w/image IMPRESSION: Paracentesis with removal of 4.3 L of cloudy yellow fluid.
[2023-02-05 13:54] VITALS: BMI 25.6
[2023-02-05 14:11] LABS: Glucose, Whole Blood 242 mg/dL (60-115)
[2023-02-05] MEDS: Lidocaine HCl 1 % MPF 5 ML VIAL SUBCUT (15:50)
[2023-02-05 15:58] VITALS: BP 115/64; PULSE 85; RESP 14; TEMP 36.9; O2SAT 100
[2023-02-05 16:13] VITALS: BP 112/72; PULSE 83; RESP 16; O2SAT 100
[2023-02-05 16:28] VITALS: BP 112/65; PULSE 91; RESP 18; O2SAT 99
[2023-02-05 17:02] VITALS: BP 113/64; PULSE 90; RESP 16; TEMP 36.3; O2SAT 99
[2023-02-05 17:34] LABS: MN% 95.9 %; PMN% 4.1 %; WBC Peritoneal Fluid 0.137 X10*3/uL
[2023-02-05 17:35] LABS: BF Shift QC OK YES; Man Diluent Bkgrd OK YES; RBC Peritoneal Fluid < 0.002 X10*6/uL
[2023-02-07 13:37] LABS: Lymphocyte Peritoneal Fl 67 %; Monocytes Peritoneal Fl 14 %; Neutrophils Peritoneal Fluid 3 %
[2023-02-07 13:38] LABS: Other Peritioneal Fl 16 %
== END 2023-02-05 17:08 | disposition home or self-care (01) ==
PROVIDERS: Radiology Diagnostic Radiology; PCP Physician Assistant Medical; Visit Provider Internal Medicine
DX: K70.31 Alcoholic cirrhosis of liver with ascites (principal); E87.1 Hypo-osmolality and hyponatremia; F10.11 Alcohol abuse, in remission; B19.20 Unspecified viral hepatitis C without hepatic coma; K76.82 Hepatic encephalopathy; I85.10 Secondary esophageal varices without bleeding; E11.9 Type 2 diabetes mellitus without complications; Z97.4 Presence of external hearing-aid
CPT/HCPCS: 49083; 82947; 87070; 87073; 87205; 88112; 88305; 88342; 89051; P9047

== ENCOUNTER → 2023-02-05 15:00 | Outpatient (BNV) | payer OTHER, SELFPAY | PROVIDERS: PCP Physician Assistant Medical; Visit Provider Radiology Diagnostic Radiology | DX: K70.31 Alcoholic cirrhosis of liver with ascites (principal) | CPT/HCPCS: 49083 ==

== ENCOUNTER 2023-02-12 16:53 | Outpatient (REF) | payer OTHER, SELFPAY ==
[2023-02-12 17:33] LABS: INTERNATIONAL NORM RATIO 1.3 (0.9-1.1); Prothrombin Time 15.5 SEC (11.1-13.3)
[2023-02-12 17:45] LABS: Ammonia 53 umol/L (13-55)
[2023-02-12 17:50] LABS: Alanine Aminotransferase 42 U/L (0-40); Albumin Level 2.7 g/dL (3.5-5.0); Alkaline Phosphatase 233 U/L (39-117); Anion Gap 13 (12-20); Aspartate Amino Transferase 69 U/L (5-37); Bilirubin Total 2.3 mg/dL (0.0-1.0); Blood Urea Nitrogen 14 mg/dL (9-16); Calcium 8.9 mg/dL (8.4-10.2); Carbon Dioxide 26 mmol/L (22-29); Chloride 101 mmol/L (96-108); Estimated Glomerular Filt Rate 51; Glucose Random 341 mg/dL (60-115); Potassium 4.1 mmol/L (3.3-5.1); Sodium 136 mmol/L (135-145); Total Protein 6.4 g/dL (6.5-8.0)
== END 2023-02-12 16:54 | disposition home or self-care (01) ==
LOC: HO.LAB 16:53
PROVIDERS: Absent Provider Nurse Practitioner Acute Care; PCP Physician Assistant Medical; Visit Provider Internal Medicine
DX: B19.20 Unspecified viral hepatitis C without hepatic coma (principal); K70.31 Alcoholic cirrhosis of liver with ascites; Z76.82 Awaiting organ transplant status
CPT/HCPCS: 36415; 80053; 82140; 85610

== ENCOUNTER 2023-02-15 19:31 | Emergency (ER) | payer OTHER, SELFPAY | END 2023-02-15 21:15 | disposition left against medical advice (07) | PROVIDERS: Emergency Provider Emergency Medicine; PCP Physician Assistant Medical | DX: R10.9 Unspecified abdominal pain (principal); R14.0 Abdominal distension (gaseous) ==

== ENCOUNTER 2023-02-20 12:41 | Outpatient (REF) | payer OTHER, SELFPAY ==
[2023-02-20 13:10] LABS: MANUAL DIFF FLAG NO
[2023-02-20 13:29] LABS: Basophils Percent Auto 0.5 % (0-2); Eosinophils Absolute Auto 0.1 X10*3/uL (0.0-0.4); Eosinophils Percent Auto 2.2 % (0-4); Hemoglobin 10.9 g/dl (14.0-18.0); Imm Gran Abs Auto 0.02 X10*3/uL (0.00-0.03); Imm Gran Pct Auto 0.3 % (0.0-0.4); Lymphocytes Absolute Auto 0.6 X10*3/uL (1.2-4.9); Lymphocytes Percent Auto 9.8 % (20-40); Mean Corpuscular HGB Conc 35.2 g/dl (31.0-36.0); Mean Corpuscular Hemoglobin 31.4 pg (27.0-33.0); Mean Corpuscular Volume 89.3 fL (80.0-98.0); Mean Platelet Volume 11.2 fL (9.4-12.4); Monocytes Absolute Auto 0.7 X10*3/uL (0.1-1.2); Monocytes Percent Auto 11.2 % (2-11); Neutrophils Absolute Auto 4.6 x10*3/uL (2.0-8.3); Platelet Count 103 X10*3/uL (160-400); Red Blood Count 3.47 X10*6/uL (4.60-5.80); Red Cell Distribution Width 13.2 % (11.0-16.0)
[2023-02-20 13:30] LABS: Ammonia 60 umol/L (13-55)
[2023-02-20 13:42] LABS: INTERNATIONAL NORM RATIO 1.2 (0.9-1.1); Prothrombin Time 14.9 SEC (11.1-13.3)
[2023-02-20 13:45] LABS: Partial Thromboplastin Time 30.9 SEC (26.0-36.4)
[2023-02-20 14:04] LABS: Alanine Aminotransferase 30 U/L (0-40); Albumin Level 2.4 g/dL (3.5-5.0); Alkaline Phosphatase 207 U/L (39-117); Anion Gap 11 (12-20); Aspartate Amino Transferase 56 U/L (5-37); Bilirubin Direct 0.7 mg/dL (0.0-0.5); Bilirubin Total 1.5 mg/dL (0.0-1.0); Blood Urea Nitrogen 19 mg/dL (9-16); Calcium 8.7 mg/dL (8.4-10.2); Carbon Dioxide 22 mmol/L (22-29); Chloride 104 mmol/L (96-108); Estimated Glomerular Filt Rate > 60; Glucose Random 216 mg/dL (60-115); Potassium 3.7 mmol/L (3.3-5.1); Sodium 133 mmol/L (135-145); Total Protein 6.1 g/dL (6.5-8.0)
== END 2023-02-20 12:42 | disposition home or self-care (01) ==
LOC: HO.LAB 12:41
PROVIDERS: PCP Physician Assistant Medical; Visit Provider Internal Medicine
DX: K70.31 Alcoholic cirrhosis of liver with ascites (principal)
CPT/HCPCS: 36415; 80048; 80076; 82140; 85025; 85610; 85730

== ENCOUNTER 2023-02-21 10:23 | Day surgery (SDC) | payer OTHER, SELFPAY ==
--- NOTE | ~2023-02-21 | US_ITS ---
EXAMINATION: Ultrasound-guided paracentesis CLINICAL INFORMATION: Cirrhosis COMPARISON: Previous exams most recent 02/05/2023 TECHNIQUE: Procedure and risks and benefits including bleeding, infection and low blood pressure were discussed with the patient and informed consent was obtained. The right lower quadrant was prepped and draped in usual sterile fashion. The skin and soft tissues were anesthetized with 1% lidocaine plain. Using ultrasound guidance and a 5 [place] one stick system, access to the ascitic fluid was obtained. 5.6 L of yellow fluid was removed. No diagnostic specimen was sent. The patient received 25 g of IV albumin during the procedure. FINDINGS: There is a large amount of ascites. US/US paracentesis abd w/image IMPRESSION: Ultrasound-guided paracentesis.
[2023-02-21 12:02] VITALS: BMI 27.1
[2023-02-21 12:21] VITALS: BP 102/76; PULSE 75; RESP 20; TEMP 36.7; O2SAT 99
[2023-02-21 14:37] VITALS: BP 117/74; PULSE 77; RESP 16; TEMP 36.3; O2SAT 100
[2023-02-21] MEDS: Lidocaine HCl 1 % MPF 5 ML VIAL SUBCUT (14:45)
[2023-02-21 14:52] VITALS: BP 123/64; PULSE 81; RESP 14; O2SAT 98
[2023-02-21 15:07] VITALS: BP 120/71; PULSE 78; RESP 14; O2SAT 99
[2023-02-21 15:22] VITALS: BP 117/75; PULSE 79; RESP 15; TEMP 36.4; O2SAT 100
[2023-02-21 15:59] LABS: MN% 65.8 %; PMN% 34.2 %; WBC Peritoneal Fluid 0.247 X10*3/uL
[2023-02-21 16:05] LABS: RBC Peritoneal Fluid < 0.002 X10*6/uL
[2023-02-21 17:08] LABS: BF Shift QC OK YES; Lymphocyte Peritoneal Fl 19 %; Monocytes Peritoneal Fl 34 %; Neutrophils Peritoneal Fluid 39 %; Other Peritioneal Fl 8 %
== END 2023-02-21 15:41 | disposition home or self-care (01) ==
PROVIDERS: Radiology Diagnostic Radiology; PCP Physician Assistant; Visit Provider Internal Medicine
DX: K70.31 Alcoholic cirrhosis of liver with ascites (principal); I85.10 Secondary esophageal varices without bleeding; E87.1 Hypo-osmolality and hyponatremia; K76.82 Hepatic encephalopathy; F10.21 Alcohol dependence, in remission; E11.65 Type 2 diabetes mellitus with hyperglycemia; I10 Essential (primary) hypertension; E78.00 Pure hypercholesterolemia, unspecified; D64.9 Anemia, unspecified; Z87.891 Personal history of nicotine dependence; Z79.899 Other long term (current) drug therapy; Z79.4 Long term (current) use of insulin
CPT/HCPCS: 49083; 87070; 87073; 87076; 87205; 89051; P9047

== ENCOUNTER → 2023-02-21 13:47 | Outpatient (BNV) | payer OTHER, SELFPAY | PROVIDERS: PCP Physician Assistant; Visit Provider Radiology Diagnostic Radiology | DX: K74.69 Other cirrhosis of liver (principal) | CPT/HCPCS: 49083 ==

== ENCOUNTER 2023-03-05 14:08 | Outpatient (REF) | payer OTHER, SELFPAY ==
[2023-03-05 14:43] LABS: Ammonia 51 umol/L (13-55)
[2023-03-05 14:49] LABS: Anion Gap 14 (12-20); Blood Urea Nitrogen 10 mg/dL (9-16); Calcium 9.2 mg/dL (8.4-10.2); Carbon Dioxide 21 mmol/L (22-29); Chloride 108 mmol/L (96-108); Estimated Glomerular Filt Rate > 60; Glucose Random 172 mg/dL (60-115); Potassium 3.8 mmol/L (3.3-5.1); Sodium 139 mmol/L (135-145)
== END 2023-03-05 14:09 | disposition home or self-care (01) ==
LOC: HO.LAB 14:08
PROVIDERS: PCP Physician Assistant Medical; Visit Provider Internal Medicine
DX: K70.31 Alcoholic cirrhosis of liver with ascites (principal); K76.82 Hepatic encephalopathy
CPT/HCPCS: 36415; 80048; 82140

== ENCOUNTER 2023-03-10 11:54 | Day surgery (SDC) | payer OTHER, SELFPAY ==
--- NOTE | ~2023-03-10 | US_ITS ---
EXAMINATION: Ultrasound-guided paracentesis CLINICAL INFORMATION: Ascites COMPARISON: Previous exam most recent 02/21/2023 TECHNIQUE: Procedure and risks and benefits including bleeding, infection and low blood pressure were discussed with the patient and informed consent was obtained. The right upper quadrant was prepped and draped in the usual sterile fashion. The skin and soft tissues were anesthetized with 1% lidocaine plain. Using ultrasound guidance and a 5 [place] one stick catheter, access to the ascitic fluid was obtained. 7 L of slightly cloudy yellow fluid was removed. Specimen was sent for cell count, Gram stain and culture. FINDINGS: There is a large amount of ascites. US/US paracentesis abd w/image IMPRESSION: Ultrasound-guided paracentesis.
[2023-03-10 12:03] VITALS: BMI 27.1
[2023-03-10 12:25] VITALS: BP 95/51; PULSE 66; RESP 18; TEMP 36.4; O2SAT 100
[2023-03-10 12:28] VITALS: BP 107/66
[2023-03-10 12:49] LABS: Glucose, Whole Blood 208 mg/dL (60-115)
[2023-03-10] MEDS: Lidocaine HCl 1 % MPF 5 ML VIAL SUBCUT (14:45)
[2023-03-10 15:35] VITALS: BP 115/69; PULSE 75; RESP 20; TEMP 36.2; O2SAT 100
[2023-03-10 15:50] VITALS: BP 97/68; PULSE 78; RESP 20; O2SAT 98
[2023-03-10 15:56] LABS: MN% 92.8 %; PMN% 7.2 %; WBC Peritoneal Fluid 0.087 X10*3/uL
[2023-03-10 15:57] LABS: RBC Peritoneal Fluid < 0.002 X10*6/uL
[2023-03-10 16:20] VITALS: BP 112/58; PULSE 76; RESP 16; TEMP 36.4; O2SAT 98
[2023-03-10 17:23] LABS: BF Shift QC OK YES; Lymphocyte Peritoneal Fl 37 %; Monocytes Peritoneal Fl 36 %; Other Peritioneal Fl 26 %
[2023-03-10 17:25] LABS: Neutrophils Peritoneal Fluid 1 %
== END 2023-03-10 14:38 | disposition home or self-care (01) ==
PROVIDERS: Internal Medicine; PCP Physician Assistant Medical; Visit Provider Radiology Vascular & Interventional Radiology
DX: K70.31 Alcoholic cirrhosis of liver with ascites (principal); I85.10 Secondary esophageal varices without bleeding; K76.82 Hepatic encephalopathy; E87.1 Hypo-osmolality and hyponatremia; F10.11 Alcohol abuse, in remission; I10 Essential (primary) hypertension; E11.9 Type 2 diabetes mellitus without complications; Z79.4 Long term (current) use of insulin; Z79.899 Other long term (current) drug therapy
CPT/HCPCS: 49083; 82947; 87070; 87073; 87205; 89051; P9047

== ENCOUNTER → 2023-03-10 14:28 | Outpatient (BNV) | payer OTHER, SELFPAY | PROVIDERS: PCP Physician Assistant Medical; Visit Provider Radiology Diagnostic Radiology | DX: R18.8 Other ascites (principal) | CPT/HCPCS: 49083 ==

== ENCOUNTER 2023-03-18 17:03 | Outpatient (REF) | payer OTHER, SELFPAY | END 2023-03-18 17:04 | disposition home or self-care (01) | LOC: HO.LABR 17:03 | PROVIDERS: Absent Provider Nurse Practitioner Acute Care; PCP Internal Medicine; Visit Provider Internal Medicine | DX: B19.20 Unspecified viral hepatitis C without hepatic coma (principal); K70.30 Alcoholic cirrhosis of liver without ascites; Z76.82 Awaiting organ transplant status | CPT/HCPCS: 36415; 80053; 82140; 85610 ==

== ENCOUNTER → 2023-03-24 12:00 | Day surgery (SDC) | payer OTHER, SELFPAY ==
--- NOTE | ~2023-03-24 | US_ITS ---
EXAMINATION: US GUIDED PARACENTESIS CLINICAL INFORMATION: Ascites COMPARISON: Previous exams most recent 03/10/2023 TECHNIQUE: Received and risks and benefits including bleeding, infection and low blood pressure were discussed with the patient and informed consent was obtained. The right lower quadrant was prepped and draped in the usual sterile fashion. The skin and soft tissues were anesthetized with 1% lidocaine plain. Using ultrasound guidance and a 5 Armenian one stick system, access to the ascitic fluid was obtained. 8.1 L of slightly cloudy yellow fluid was removed. Diagnostic specimen was sent. Patient received IV albumin during the procedure. FINDINGS: There is a large amount of ascites. US/US paracentesis abd w/image IMPRESSION: Ultrasound-guided paracentesis.
[2023-03-24 12:35] LABS: MANUAL DIFF FLAG NO
[2023-03-24 12:37] LABS: Basophils Percent Auto 0.6 % (0-2); Eosinophils Absolute Auto 0.3 X10*3/uL (0.0-0.4); Hematocrit 33.2 % (42.0-52.0); Hemoglobin 11.4 g/dl (14.0-18.0); Imm Gran Abs Auto 0.02 X10*3/uL (0.00-0.03); Imm Gran Pct Auto 0.4 % (0.0-0.4); Lymphocytes Absolute Auto 0.6 X10*3/uL (1.2-4.9); Lymphocytes Percent Auto 11.5 % (20-40); Mean Corpuscular HGB Conc 34.3 g/dl (31.0-36.0); Mean Corpuscular Hemoglobin 30.2 pg (27.0-33.0); Mean Corpuscular Volume 88.1 fL (80.0-98.0); Monocytes Absolute Auto 0.5 X10*3/uL (0.1-1.2); Neutrophils Absolute Auto 3.7 x10*3/uL (2.0-8.3); Neutrophils Percent Auto 72.5 % (45-73); Platelet Count 109 X10*3/uL (160-400); Red Blood Count 3.77 X10*6/uL (4.60-5.80); Red Cell Distribution Width 13.5 % (11.0-16.0); White Blood Count 5.1 X10*3/uL (4.8-10.8)
[2023-03-24 12:52] LABS: INTERNATIONAL NORM RATIO 1.3 (0.9-1.1); Prothrombin Time 16.1 SEC (11.1-13.3)
[2023-03-24 12:54] LABS: Anion Gap 12 (12-20); Carbon Dioxide 24 mmol/L (22-29); Chloride 102 mmol/L (96-108); Estimated Glomerular Filt Rate > 60; Partial Thromboplastin Time 31.8 SEC (26.0-36.4); Potassium 3.8 mmol/L (3.3-5.1); Sodium 134 mmol/L (135-145)
--- NOTE | 2023-03-24 13:07 | PC.NURSE ---
lab called for dr. Zuluaga order, add on ammonia, lab to redraw- pt agreeable to plan. elevated blood sugar reported to Dr. Zuluaga, 340. no new orders.
[2023-03-24 13:33] LABS: Glucose, Whole Blood 340 mg/dL (60-115)
[2023-03-24 14:02] LABS: Ammonia 37 umol/L (13-55)
[2023-03-24 14:11] LABS: Anion Gap 13 (12-20); Blood Urea Nitrogen 13 mg/dL (9-16); Calcium 8.4 mg/dL (8.4-10.2); Carbon Dioxide 23 mmol/L (22-29); Chloride 103 mmol/L (96-108); Estimated Glomerular Filt Rate > 60; Glucose Fasting 361 mg/dL (60-99); Potassium 3.7 mmol/L (3.3-5.1); Sodium 135 mmol/L (135-145)
[2023-03-24 14:35] VITALS: BP 104/53; PULSE 72; RESP 17; TEMP 36.2; O2SAT 100
[2023-03-24] MEDS: Lidocaine HCl 1 % MPF 5 ML VIAL SUBCUT (14:42)
[2023-03-24 14:50] VITALS: BP 105/63; PULSE 75; RESP 16; O2SAT 100
[2023-03-24 15:05] VITALS: BP 99/55; PULSE 74; RESP 16; O2SAT 100
[2023-03-24 15:20] VITALS: BP 92/52; PULSE 74; RESP 16; O2SAT 100
[2023-03-24 15:22] LABS: MN% 94.1 %; PMN% 5.9 %; WBC Peritoneal Fluid 0.088 X10*3/uL
[2023-03-24 15:24] LABS: RBC Peritoneal Fluid < 0.002 X10*6/uL
[2023-03-24 15:46] VITALS: BP 102/57; PULSE 77; RESP 16; TEMP 36.1; O2SAT 99
[2023-03-24 17:02] LABS: BF Shift QC OK YES; Man Diluent Bkgrd OK YES
[2023-03-24 17:03] LABS: Lymphocyte Peritoneal Fl 26 %; Monocytes Peritoneal Fl 73 %; Neutrophils Peritoneal Fluid 1 %
== END | disposition home or self-care (01) ==
PROVIDERS: Radiology Diagnostic Radiology; PCP Internal Medicine; Visit Provider Internal Medicine
DX: K70.31 Alcoholic cirrhosis of liver with ascites (principal); I85.10 Secondary esophageal varices without bleeding; E87.1 Hypo-osmolality and hyponatremia; K76.82 Hepatic encephalopathy; F10.11 Alcohol abuse, in remission; I10 Essential (primary) hypertension; E11.9 Type 2 diabetes mellitus without complications; Z79.4 Long term (current) use of insulin; Z79.899 Other long term (current) drug therapy; Z88.0 Allergy status to penicillin; Z88.5 Allergy status to narcotic agent
CPT/HCPCS: 36415; 49083; 80048; 80051; 82140; 82565; 82947; 85025; 85610; 85730; 87070; 87073; 87205; 89051; P9047

== ENCOUNTER → 2023-03-24 13:41 | Outpatient (BNV) | payer OTHER, SELFPAY | PROVIDERS: PCP Internal Medicine; Visit Provider Radiology Diagnostic Radiology | DX: K70.31 Alcoholic cirrhosis of liver with ascites (principal) | CPT/HCPCS: 49083 ==

== ENCOUNTER 2023-03-26 14:03 | Inpatient (IN) | payer OTHER, SELFPAY ==
--- NOTE | ~2023-03-26 | CT_ITS ---
EXAMINATION: CT HEAD WITHOUT CONTRAST CLINICAL INFORMATION: Confusion. COMPARISON: 10/19/2022 TECHNIQUE: Contiguous axial imaging was performed from the skull base to vertex without intravenous administration of contrast. This CT examination was performed using dose optimization techniques as appropriate, variously including the following: *Automated exposure control *Adjustment of mA and/or kV according to patient size (this includes techniques or standardized protocols for targeted exams where dose is matched to indication/reason for exam; i.e. extremities or head) *Use of iterative reconstruction technique DLP: 787 mGy-cm FINDINGS: There is no evidence of acute intracranial hemorrhage or territorial infarction. No mass effect or midline shift is seen. Lora to white matter differentiation is well preserved. No extra-axial fluid collections are identified. The ventricles are normal in size. The osseous structures and soft tissues are unremarkable. The mastoid air cells are well aerated. Mild left maxillary sinus mucosal thickening. CT/CT head/brain wo IV con IMPRESSION: No acute intracranial pathology.
--- NOTE | ~2023-03-26 | US_ITS ---
Ultrasound paracentesis History: Ascites. Risks and benefits and possible complications were discussed with the patient's daughter and consent form was signed. A safe pocket of ascitic fluid was identified using ultrasound guidance, and the overlying skin was marked. The abdomen prepped and draped in sterile fashion. 1% lidocaine was used as a local anesthetic. Using ultrasound guidance, a 5 fr catheter was placed into the ascitic pocket. 3.3 liters of yellow fluid was removed passively. The catheter was then removed. Fluid was sent for analysis. A few entry level account representative images from before and after the examination were obtained. The procedure was performed by Matthew Woodruff PA-C and supervised by Dr. Culp. US/US paracentesis abd w/image Impression: Ultrasound-guided paracentesis as described above. No immediate complications
[2023-03-26 14:13] VITALS: BP 122/77; PULSE 72; RESP 15; TEMP 35.4; O2SAT 99; BMI 23.7
--- NOTE | 2023-03-26 14:13 | ED.AMS ---
HPI - Altered Mental Status General Chief Complaint: General Medical Stated Complaint: ams Time Seen by Provider: 03/26/23 16:19 Source: family Mode of arrival: ambulatory Limitations: altered mental status History of Present Illness HPI narrative: Patient lives alone has hepatic encephalopathy and does not always take his medications. Patient had 8L removed from his abdomen on Friday. MD complaint: altered mental status and confusion Related Data Home Medications Medication Instructions Recorded Confirmed atorvastatin 20 mg tablet 20 mg PO DAILY 06/29/20 02/05/23 hydroxyzine HCl 25 mg tablet 25 mg PO TID PRN itch 09/09/22 02/05/23 insulin glargine-yfgn 100 unit/mL 62 unit subcut DAILY 09/09/22 02/05/23 (3 mL) subcutaneous pen (Semglee (insulin glargine-yfgn) Pen) spironolactone 50 mg tablet 50 mg PO BEDTIME 09/09/22 02/05/23 trazodone 50 mg tablet 50 mg PO BEDTIME PRN insomnia 09/09/22 02/05/23 pantoprazole 40 mg tablet,delayed 40 mg PO DAILY@0630 10/03/22 02/05/23 release insulin lispro 100 unit/mL See Rx Instructions .Route .COMPLEX 10/19/22 02/05/23 subcutaneous pen (Humalog KwikPen (U-100) Insulin) gabapentin 300 mg capsule 300 mg PO QPM 12/27/22 02/05/23 nadolol 20 mg tablet 20 mg PO DAILY 12/27/22 02/05/23 Previous Rx's Medication Instructions Recorded ferrous sulfate 325 mg (65 mg 325 mg PO BID #60 tabs 09/12/22 iron) tablet lactulose 20 gram/30 mL oral 20 g (30 mL) PO BID #2,880 mL 10/04/22 solution rifaximin 550 mg tablet (Xifaxan) 550 mg PO BID #60 tabs 10/04/22 Allergies Allergy/AdvReac Type Severity Reaction Status Date / Time codeine [CODEINE] Allergy Mild ITCHINESS, Verified 03/10/23 12:05 itching penicillin G Allergy Mild itching Verified 03/10/23 12:05 Review of Systems Review of Systems: Yes Unobtainable due to mental status Neurologic: Denies Sensory deficit (Neuro) PMFSH Past Medical History Medical History S/P abdominal paracentesis Black stools Normocytic anemia Abdominal ascites Chronic hyponatremia Cirrhosis of liver Varices, esophageal History of alcohol abuse Diabetes Elevated cholesterol Myocardial infarction HTN (hypertension) Hepatitis Cirrhosis Surgical History Hx of hand surgery History of PTCA History of esophagogastroduodenoscopy (EGD) H/O colonoscopy Social History Social History Household Members: Family Housing: House Do you presently have visiting nurse or other home services: No Unable to assess alcohol history related to: Unable to respond Alcohol intake: former Patient Tobacco Use Status: Former Tobacco user Quit Date: 2013 Tobacco use type: Cigarette Second Hand Smoke Exposure: No Advance Directives: Yes Advance Directives Date on File: 09/13/22 service: Yes Current occupational status: disabled Physical Exam ED Vital Signs: Vital Signs - 24 hr 03/26/23 14:13 Temperature 95.8 F L Pulse Rate 72 Respiratory Rate 15 Blood Pressure 122/77 Pulse Oximetry 99 Oxygen Delivery Method Room Air BMI result Body Mass Index 23.7 Const Other: male looking older than stated age, chronically ill Orientation/consciousness: oriented to person Limitations: altered mental status HENMT Head: Yes normal to inspection Ears: external ears normal General nose exam: Normal external nose present Mouth: Normal oral and palatal mucosa present and oropharynx normal Throat: Yes posterior oropharynx normal Eyes General: appearance normal, both eyes and all related structures Neck Neck: Yes normal visual inspection Chest Chest palpation & inspection: normal inspection of the chest Resp Auscultation: clear to auscultation bilaterally Cardio Jugular venous distension: no JVD Rate: regular rate Rhythm: regular rhythm Heart sounds: S1 normal heart sound present and S2 normal heart sound present GI Other: large ascites, umbilical hernia, non tender General: Yes no CVA tenderness Back/Spine/Pelvis Back: no CVA tenderness Skin General skin exam: no rashes or lesions noted Neuro General: oriented to person Cranial nerves: Yes CN's II-XII intact bilaterally Motor exam (neuro): 5/5 motor strength present throughout Sensory Exam: No Sensory deficit (Neuro) Extrem General: Yes normal to inspection Psych Appearance: grossly normal Course Course Course Narrative: RME - 58 yo male with history of alcoholic liver cirrhosis w/ ascites requiring q2 week large volume paracentesis last on 03/24 who presents with AMS. Daughter reports he lives alone and moved the cameras she uses to monitor him. She is worried he has been noncompliant with his lactulose. hx HE in the past. No asterixis in triage. Awake and alert but confused. Plan: labs, ?dx para, lactulose orally Reevaluation(s) Reevaluation #1: patient with hepatic encephalopathy will admit Time: 16:37 Medications Administered Discontinued Medications Generic Name Dose Route Start Last Admin Trade Name Freq PRN Reason Stop Dose Admin Lactulose 30 gm 03/26/23 14:15 03/26/23 15:50 Lactulose 20 Gm/30 Ml Solution PO 03/26/23 14:16 30 gm NOW STA Administration Medical Decision Making Differential Diagnosis Differential Diagnoses: The differential diagnosis associated with the presentation includes (Liver failure, spontaneous bacterial peritonitis, ascites, hepatic encephalopathy all considered) Admission/Observation Consideration of admission/observation: Escalation of care including admission/observation considered upon arrival patient considered for admission Consult Healthcare Provider Management of the patient was discussed with: Hospitalist Lab Data MDM Lab Attestation statement: I reviewed the patient's lab results. (liver failure elevated ammonia) 03/26/23 14:29 03/26/23 14:29 Labs: Lab Results 03/26/23 Range/Units 14:29 WBC 6.0 (4.8-10.8) X10*3/uL RBC 4.08 L (4.60-5.80) X10*6/uL Hgb 12.3 L (14.0-18.0) g/dl Hct 34.5 L (42.0-52.0) % MCV 84.6 (80.0-98.0) fL MCH 30.1 (27.0-33.0) pg MCHC 35.7 (31.0-36.0) g/dl RDW 13.4 (11.0-16.0) % Plt Count 114 L (160-400) X10*3/uL MPV 10.9 (9.4-12.4) fL Immature Gran % (Auto) 0.2 (0.0-0.4) % Neut % (Auto) 77.3 H (45-73) % Lymph % (Auto) 10.1 L (20-40) % [place] % (Auto) 7.9 (2-11) % Eos % (Auto) 3.7 (0-4) % Baso % (Auto) 0.8 (0-2) % Lymph # (Auto) 0.6 L (1.2-4.9) X10*3/uL [place] # (Auto) 0.5 (0.1-1.2) X10*3/uL Eos # (Auto) 0.2 (0.0-0.4) X10*3/uL Baso # (Auto) 0.1 (0.0-0.2) X10*3/uL Abs Immat Gran (auto) 0.01 (0.00-0.03) X10*3/uL Absolute Neuts (auto) 4.6 (2.0-8.3) x10*3/uL Absolute Nucleated RBC 0.000 (0.0-0.012) X10*3/uL Nucleated RBC % (auto) 0.0 (0.0-0.2) /100WBC PT 15.3 H (11.1-13.3) SEC INR 1.3 H (0.9-1.1) APTT 32.1 (26.0-36.4) SEC Sodium 134 L (135-145) mmol/L Potassium 3.7 (3.3-5.1) mmol/L Chloride 101 (96-108) mmol/L Carbon Dioxide 25 (22-29) mmol/L Anion Gap 12 (12-20) BUN 11 (9-16) mg/dL Creatinine 1.13 (0.5-1.4) mg/dL Estim Creat Clear Calc 62.7 Estimated GFR > 60 Random Glucose 284 H (60-115) mg/dL Calcium 9.0 D (8.4-10.2) mg/dL Magnesium 1.6 (1.6-2.6) mg/dL Total Bilirubin 2.2 H (0.0-1.0) mg/dL Direct Bilirubin 1.0 H (0.0-0.5) mg/dL AST 53 H (5-37) U/L ALT 30 (0-40) U/L Alkaline Phosphatase 187 H (39-117) U/L Ammonia 81 H (13-55) umol/L Total Protein 6.8 (6.5-8.0) g/dL Albumin 2.6 L (3.5-5.0) g/dL Ethyl Alcohol < 10 mg/dL Independent Historian Clinical information obtained from an independent historian. History obtained from or confirmed by: Other (daughter) External Record Review External record reviewed: Outpatient record Tests considered The following testing was considered but not selected: CT of head considered but patient with multiple events that are similar Chronic Conditions Patient?s care impacted by: Other (liver failure) Social Determinants Patient?s care significantly limited by Social Determinants of Health including: Alcoholism and drug addiction in family Discharge Plan Discharge Clinical Impression: Acute hepatic encephalopathy, Chronic liver failure Patient Disposition: Admitted As Inpatient
[2023-03-26 14:36] LABS: MANUAL DIFF FLAG NO
[2023-03-26 14:39] LABS: Basophils Absolute Auto 0.1 X10*3/uL (0.0-0.2); Basophils Percent Auto 0.8 % (0-2); Eosinophils Absolute Auto 0.2 X10*3/uL (0.0-0.4); Eosinophils Percent Auto 3.7 % (0-4); Hematocrit 34.5 % (42.0-52.0); Hemoglobin 12.3 g/dl (14.0-18.0); Imm Gran Abs Auto 0.01 X10*3/uL (0.00-0.03); Imm Gran Pct Auto 0.2 % (0.0-0.4); Lymphocytes Absolute Auto 0.6 X10*3/uL (1.2-4.9); Lymphocytes Percent Auto 10.1 % (20-40); Mean Corpuscular HGB Conc 35.7 g/dl (31.0-36.0); Mean Corpuscular Hemoglobin 30.1 pg (27.0-33.0); Mean Corpuscular Volume 84.6 fL (80.0-98.0); Mean Platelet Volume 10.9 fL (9.4-12.4); Monocytes Absolute Auto 0.5 X10*3/uL (0.1-1.2); Monocytes Percent Auto 7.9 % (2-11); Neutrophils Absolute Auto 4.6 x10*3/uL (2.0-8.3); Neutrophils Percent Auto 77.3 % (45-73); Platelet Count 114 X10*3/uL (160-400); Red Blood Count 4.08 X10*6/uL (4.60-5.80); Red Cell Distribution Width 13.4 % (11.0-16.0)
[2023-03-26 14:43] LABS: Ammonia 81 umol/L (13-55); INTERNATIONAL NORM RATIO 1.3 (0.9-1.1); Prothrombin Time 15.3 SEC (11.1-13.3)
[2023-03-26 14:46] LABS: Partial Thromboplastin Time 32.1 SEC (26.0-36.4)
[2023-03-26 14:53] LABS: Alanine Aminotransferase 30 U/L (0-40); Albumin Level 2.6 g/dL (3.5-5.0); Alkaline Phosphatase 187 U/L (39-117); Anion Gap 12 (12-20); Aspartate Amino Transferase 53 U/L (5-37); Bilirubin Total 2.2 mg/dL (0.0-1.0); Blood Urea Nitrogen 11 mg/dL (9-16); Carbon Dioxide 25 mmol/L (22-29); Chloride 101 mmol/L (96-108); Creatinine Clr Calc Pharmacy 62.7; Estimated Glomerular Filt Rate > 60; Ethanol < 10 mg/dL; Glucose Random 284 mg/dL (60-115); Magnesium 1.6 mg/dL (1.6-2.6); Potassium 3.7 mmol/L (3.3-5.1); Sodium 134 mmol/L (135-145); Total Protein 6.8 g/dL (6.5-8.0)
--- NOTE | 2023-03-26 15:44 | MHC.EDTECH ---
PATIENT SAID NOT ABLE TO GIVE URINE SAMPLE AT THIS TIME.
[2023-03-26] MEDS: Lactulose 20 GM/30 ML SOLUTION 30 GM PO ×2 (15:50→21:24)
--- NOTE | 2023-03-26 16:03 | PC.NURSE ---
pt brought back from waiting room, this RN medicated patient with Lactulose. 20g IV placed in LW
--- NOTE | 2023-03-26 17:05 | PM.IMHP ---
History of Present Illness Date of Service: 03/26/23 Attending physician on admission: Koko Thomas Chief Complaint: Altered mental status Pt is a 58-year-old male with a PMH significant for?alcoholic cirrhosis complicated by varices, ascites, and recurrent encephalopathy, hepatitis C s/p treatment, insulin-dependent diabetes type 2, and CAD s/p stent who presents to the ED with altered mental status. Patient is currently alert oriented to self only, not answering appropriately. HPI thus obtained from chart and provider review, and family who is at bedside. Family states patient was last seen in his normal state of health last night. Patient lives alone but is monitored with cameras by his family to ensure safety and medication compliance. Family note that last night or early this morning patient removed 2 of the cameras and turned the other one around. Family questions whether pt has been compliant with his medications, which has been a problem before. Family also notes patient's diuretics have recently been reduced d/t electrolyte imbalances, and are currently being reconfigured. Family also report patient has been on liver transplant list for a number of years now. Of note, pt with recurrent ascites requiring q2 week large volume paracentesis, last on 03/24/2023 which removed 8L. In the ED patient's temperature was as low as 95.8 degrees, though otherwise hemodynamically stable. Labs were significant for stable anemia of 12.3/34.5, sodium 134, random glucose 284, bilirubin 2.2, AST 53, alk-phos 187, ammonia 81, and albumin 2.6. Ethyl alcohol negative at <10. Pt was treated with lactulose 30 g po. Pt will be admitted to the hospital for treatment of acute hepatic encephalopathy in the setting of decompensated alcoholic cirrhosis likely secondary to medication noncompliance. Review of Systems Review of Systems: Unable to obtain due to patient's mentation [facility] Medical History S/P abdominal paracentesis Black stools Normocytic anemia Abdominal ascites Chronic hyponatremia Cirrhosis of liver Varices, esophageal History of alcohol abuse Diabetes Elevated cholesterol Myocardial infarction HTN (hypertension) Hepatitis Cirrhosis Surgical History Hx of hand surgery History of PTCA History of esophagogastroduodenoscopy (EGD) H/O colonoscopy Social History Household Members: Family Housing: House Do you presently have visiting nurse or other home services: No Unable to assess alcohol history related to: Unable to respond Alcohol intake: former Patient Tobacco Use Status: Former Tobacco user Quit Date: 2013 Tobacco use type: Cigarette Second Hand Smoke Exposure: No Advance Directives Date on File: 09/13/22 service: Yes Current occupational status: disabled Meds Allergies Allergy/AdvReac Type Severity Reaction Status Date / Time codeine [CODEINE] Allergy Mild ITCHINESS, Verified 03/10/23 12:05 itching penicillin G Allergy Mild itching Verified 03/10/23 12:05 Home Medications Medication Instructions Recorded Confirmed Last Taken Type atorvastatin 20 mg tablet 20 mg PO DAILY 06/29/20 03/26/23 09/08/22 History insulin glargine-yfgn 100 unit/mL 66 unit subcut DAILY 09/09/22 03/26/23 02/04/23 History (3 mL) subcutaneous pen (Semglee (insulin glargine-yfgn) Pen) gabapentin 300 mg capsule 300 mg PO BEDTIME PRN Pain 12/27/22 03/26/23 Unknown History nadolol 20 mg tablet 20 mg PO DAILY 12/27/22 03/26/23 Unknown History ferrous sulfate 325 mg (65 mg 325 mg PO DAILY 03/26/23 03/26/23 Unknown History iron) tablet furosemide 20 mg tablet 20 mg PO DAILY 03/26/23 03/26/23 Unknown History hydroxyzine HCl 50 mg tablet 50 mg PO BEDTIME PRN anxiety 03/26/23 03/26/23 Unknown History lactulose 20 gram/30 mL oral 20 g PO TID 03/26/23 03/26/23 Unknown History solution lidocaine 5 % topical patch 1 patch topical DAILY PRN Pain 03/26/23 03/26/23 Unknown History menthol 5 % topical patch (Icy Hot 1 patch topical DAILY 03/26/23 03/26/23 Unknown History (menthol)) mirtazapine 7.5 mg tablet 7.5 mg PO BEDTIME 03/26/23 03/26/23 Unknown History omeprazole 20 mg capsule,delayed 20 mg PO DAILY 03/26/23 03/26/23 Unknown History release spironolactone 50 mg tablet 150 mg PO DAILY 03/26/23 03/26/23 Unknown History Physical Exam Vital Signs and Narrative: Vital Signs: Last Vital Signs Temp 95.8 F L 03/26/23 14:13 Pulse 72 03/26/23 14:13 Resp 15 03/26/23 14:13 BP 122/77 03/26/23 14:13 Pulse Ox 99 03/26/23 14:13 O2 Del Method Room Air 03/26/23 14:13 BMI result Body Mass Index 23.7 Constitutional: Alert, pleasantly confused, not answering appropriately, in no acute distress. Mental Status: Oriented to person only, not to place, time, or situation. Eyes: Pupils are equal, round, and reactive to light. Ear, Nose, and Throat: Oropharynx clear, mucous membranes moist. Ears and nose without deformities. Trachea midline. Respiratory: Clear to auscultation bilaterally. No wheezing, rales, or rhonchi. Cardiovascular: S1, S2 regular. No murmurs, rubs, or gallops. Gastrointestinal: Abdomen firm, distended, mildly tender. Reducible umbilical hernia noted. Neurologic: Cranial nerves II-XII are grossly intact bilaterally. No focal neurological deficits. Moves all extremities spontaneously. Skin: No rashes or lesions noted. Musculoskeletal: No cyanosis or clubbing. Extremities: 1+ bilateral pitting edema. Psychiatric: Normal mood and affect. Results Labs 03/26/23 14:29 03/26/23 14:29 Labs: Laboratory Results - last 24 hr 03/26/23 14:29 MCV 84.6 MCH 30.1 MCHC 35.7 RDW 13.4 Plt Count 114 L MPV 10.9 Immature Gran % (Auto) 0.2 Neut % (Auto) 77.3 H Lymph % (Auto) 10.1 L [place] % (Auto) 7.9 Eos % (Auto) 3.7 Baso % (Auto) 0.8 Lymph # (Auto) 0.6 L [place] # (Auto) 0.5 Eos # (Auto) 0.2 Baso # (Auto) 0.1 Abs Immat Gran (auto) 0.01 Absolute Neuts (auto) 4.6 Absolute Nucleated RBC 0.000 Nucleated RBC % (auto) 0.0 PT 15.3 H INR 1.3 H APTT 32.1 Anion Gap 12 Estim Creat Clear Calc 62.7 Estimated GFR > 60 Random Glucose 284 H Calcium 9.0 D Magnesium 1.6 Total Bilirubin 2.2 H Direct Bilirubin 1.0 H AST 53 H ALT 30 Alkaline Phosphatase 187 H Ammonia 81 H Total Protein 6.8 Albumin 2.6 L Ethyl Alcohol < 10 Assessment and Plan (1) Acute hepatic encephalopathy: Status: Acute Plan Pt is a 58-year-old male with a PMH significant for?alcoholic cirrhosis complicated by varices, ascites, and recurrent encephalopathy, hepatitis C s/p treatment, insulin-dependent diabetes type 2, and CAD s/p stent who presents to the ED with altered mental status. Pt will be admitted to the hospital for treatment of acute hepatic encephalopathy in the setting of decompensated alcoholic cirrhosis likely secondary to medication noncompliance. Acute hepatic encephalopathy Patient with AMS, confusion since last night/this morning, patient with alcoholic cirrhosis, ammonia 81 Likely secondary to medication noncompliance Will give lactulose 30 g t.i.d. Continue rifaximin 550 mg p.o. b.i.d., furosemide and spironolactone GI consult Patient will be made NPO, consider formal speech evaluation for tomorrow Monitor mentation HTN Continue home meds CAD/HLD Continue statin GERD Continue PPI Insulin-dependent diabetes type [address] sliding scale insulin, Lantus Diabetic diet once no longer NPO Mood disorder Continue mirtazapine Full Code Attending:?Dr. Thomas DVT Prophylaxis: Lovenox Pt will require a hospitalization of at least two nights for treatment of?treatment of acute hepatic encephalopathy in the setting of decompensated alcoholic cirrhosis likely secondary to medication noncompliance. Time Spent With Patient Time: Total time managing care of this patient today ____ minutes. Quality Stroke Does the patient have a stroke diagnosis?: No VTE Prior VTE?: No VTE Risk Level:: Medical - moderate - high VTE Device Contraindication: Treatment Not Indicated VTE Drug Contraindication: N/A - Med Ordered
--- NOTE | 2023-03-26 18:21 | PC.NURSE ---
this RN ambulated patient to bathroom. Attempted to get a urine, patient was unable to urinate but did have large liquid bowel movement
--- NOTE | 2023-03-26 18:33 | PHA.MEDREC ---
Pharmacy Consult ? Medication Reconciliation Pharmacy has completed the medication reconciliation. Patient's daughter confirmed medications.
[2023-03-26] MEDS: Furosemide 20 MG TABLET PO (19:35)
[2023-03-26 19:41] LABS: Glucose, Whole Blood 283 mg/dL (60-115)
--- NOTE | 2023-03-26 19:41 | PC.NURSE ---
This teletypewriter installer assumed care at 1900, Pt AOx2, Pt reporting 10/10 constant abdominal pain, J-pouch noted no abnormal swelling or abrasions. IV line placed in left forearm. Med given per AUG. Pt resting quietly with no apparent distress. Pt aware of plan
--- NOTE | 2023-03-26 20:13 | PC.NURSE ---
Pt found by registration in the hallway by the staff, completely naked. Pt was assisted back into bed. A camera is being placed in the room.
[2023-03-26] MEDS: Mirtazapine 7.5 MG TABLET PO (20:55)
[2023-03-26] MEDS: Insulin Lispro 100 UNIT/ML 3 ML VIAL SUBCUT (20:56)
[2023-03-26] MEDS: rifAXIMin 550 MG TABLET PO (21:24)
[2023-03-26 21:39] VITALS: BP 106/59; PULSE 62; O2SAT 97
[2023-03-26 21:47] LABS: Glucose, Whole Blood 282 mg/dL (60-115)
--- NOTE | 2023-03-26 22:14 | PC.NURSE ---
RN to RN report given to Kelly, pt will be transporter to overflow, pt aware of plan.
--- NOTE | 2023-03-26 22:32 | PC.NURSE ---
this rn assumed care of pt from main ed @ 2. pt positioned in bed. camera monitor in place. pt reports needing to laura restroom. certified medication aide assisted pt to restroom at this time. pt repositioned in bed. lights dimmed. bed alarm on pt instructed to use mejia is needs to get up for restroom pt verbalized understanding of callbell education
[2023-03-26 22:44] VITALS: BP 133/77; PULSE 86; RESP 18; TEMP 35.8; O2SAT 98
[2023-03-27 05:50] VITALS: BP 96/50; PULSE 76; RESP 18; TEMP 36.1; O2SAT 98
[2023-03-27 05:55] LABS: Ammonia 33 umol/L (13-55)
[2023-03-27 06:02] LABS: Anion Gap 13 (12-20); Blood Urea Nitrogen 10 mg/dL (9-16); Calcium 8.8 mg/dL (8.4-10.2); Carbon Dioxide 24 mmol/L (22-29); Chloride 103 mmol/L (96-108); Creatinine Clr Calc Pharmacy 78.7; Estimated Glomerular Filt Rate > 60; Glucose Random 129 mg/dL (60-115); Potassium 3.2 mmol/L (3.3-5.1); Sodium 137 mmol/L (135-145)
[2023-03-27 07:42] LABS: Glucose, Whole Blood 119 mg/dL (60-115)
[2023-03-27] MEDS: Furosemide 20 MG TABLET PO (09:25)
[2023-03-27] MEDS: Ferrous Sulfate 324 MG TABLET.DR PO (09:25)
[2023-03-27] MEDS: Potassium Chloride ER 20 MEQ TAB.ER.PRT 40 MEQ PO ×2 (09:25→21:10)
[2023-03-27] MEDS: Spironolactone 25 MG TABLET 150 MG PO (09:25)
[2023-03-27] MEDS: Omeprazole 20 MG CAPSULE.DR PO (09:25)
[2023-03-27] MEDS: Atorvastatin Calcium 20 MG TABLET PO (09:26)
[2023-03-27] MEDS: 0.9 % Sodium Chloride Flush 3 ML SYRINGE IVFLUSH ×2 (09:26→21:19)
[2023-03-27] MEDS: Insulin Glargine,Hum.rec.anlog 100 UNIT/ML 10 ML VIAL 46 UNIT SUBCUT (09:26)
[2023-03-27] MEDS: Lactulose 20 GM/30 ML SOLUTION 30 GM PO ×3 (09:27→21:10)
[2023-03-27 11:45] LABS: Glucose, Whole Blood 137 mg/dL (60-115)
[2023-03-27] MEDS: rifAXIMin 550 MG TABLET PO ×2 (12:31→21:09)
[2023-03-27] MEDS: nadoloL 20 MG TABLET PO (12:31)
--- NOTE | 2023-03-27 15:32 | MHC.CM.PN ---
Attempted to meet with patient in regards to discharge planning. Patient currently sleeping. No family present. Will attempt to meet again. Continue to monitor for d/c needs.
--- NOTE | 2023-03-27 15:51 | P.PNIM_ITS ---
Subjective Subjective Date of Service: 03/27/23 Interval History: No acute issues overnight. Mentation returning to baseline Review of Systems Denies chest pain Denies shortness of breath Denies nausea vomiting diarrhea Denies fever chills Physical Exam 2 Vital Signs: Vital Signs: Last Vital Signs Temp 97.0 F 03/27/23 05:50 Pulse 76 03/27/23 05:50 Resp 18 03/27/23 05:50 BP 96/50 L 03/27/23 05:50 Pulse Ox 98 03/27/23 05:50 O2 Del Method Room Air 03/27/23 05:50 BMI result Body Mass Index 23.7 Const: Other: Awake alert no acute distress Resp: Other: Clear to auscultation bilaterally no rales rhonchi or wheezes Cardio: Other: No S4; positive S1-S2; no S3 murmurs rubs or gallops Extrem: Other: No edema bilaterally Objective Data Active Medications Acetaminophen (Acetaminophen 325 Mg Tablet) 650 mg PO Q6H PRN PRN Reason: Pain, Mild (Pain Scale 1-3) Atorvastatin Calcium (Atorvastatin Calcium 20 Mg Tablet) 20 mg PO DAILY [facility] Last Admin: 03/27/23 09:26 Dose: 20 mg Documented By: JEY Benzonatate (Benzonatate 100 Mg Capsule) 100 mg PO TID PRN PRN Reason: Cough Dextrose (Dextrose 50 % 25 Gm/50 Ml Syringe) 25 gm IVPUSH Q15M PRN; Protocol PRN Reason: per Hypoglycemia Standing Ord. Docusate Sodium (Docusate Sodium 100 Mg Capsule) 100 mg PO DAILY PRN PRN Reason: Constipation Ferrous Sulfate (Ferrous Sulfate 324 Mg Tablet.) 324 mg PO DAILY [facility] Last Admin: 03/27/23 09:25 Dose: 324 mg Documented By: JEY Furosemide (Furosemide 20 Mg Tablet) 20 mg PO DAILY [facility]; Protocol Last Admin: 03/27/23 09:25 Dose: 20 mg Documented By: JEY Gabapentin (Gabapentin 300 Mg Capsule) 300 mg PO BEDTIME PRN PRN Reason: Pain, Mild (Pain Scale 1-3) Glucose (Glucose Gel 15 Gm Gel..Gram.) 15 gm PO Q15M PRN; Protocol PRN Reason: per Hypoglycemia Standing Ord. Hydroxyzine HCl (Hydroxyzine Hcl 50 Mg Tablet) 50 mg PO BEDTIME PRN PRN Reason: anxiety Insulin Glargine (Insulin Glargine,Hum.Rec.Anlog 100 Unit/Ml 10 Ml Vial) 46 unit SUBCUT DAILY [facility] Last Admin: 03/27/23 09:26 Dose: 46 unit Documented By: JEY Insulin Human Lispro (Insulin Lispro 100 Unit/Ml 3 Ml Vial) 0 unit SUBCUT QIDACHS [facility]; Protocol Last Admin: 03/27/23 11:43 Dose: Not Given Documented By: JEY Non-Admin Reason: No Insulin Coverage Lactulose (Lactulose 20 Gm/30 Ml Solution) 30 gm PO TID [facility] Last Admin: 03/27/23 09:27 Dose: 30 gm Documented By: JEY Lidocaine (Lidocaine 4 % Patch Adh..Patch) 1 patch TRANSDERMA DAILY PRN PRN Reason: Pain, Moderate(Pain Scale 4-6) Melatonin (Melatonin 3 Mg Tablet) 6 mg PO BEDTIME PRN PRN Reason: Insomnia Mirtazapine (Mirtazapine 7.5 Mg Tablet) 7.5 mg PO BEDTIME [facility] Last Admin: 03/26/23 20:55 Dose: 7.5 mg Documented By: SHERON Nadolol (Nadolol 20 Mg Tablet) 20 mg PO DAILY [facility]; Protocol Last Admin: 03/27/23 12:31 Dose: 20 mg Documented By: JEY Omeprazole (Omeprazole 20 Mg Capsule.Dr) 20 mg PO DAILY@0630 [facility] Last Admin: 03/27/23 09:25 Dose: 20 mg Documented By: JEY Ondansetron HCl (Ondansetron Hcl 4 Mg/2 Ml Vial) 4 mg IVPUSH Q8H PRN PRN Reason: Nausea and Vomiting Potassium Chloride (Potassium Chloride Er 20 Meq Tab.Er.Prt) 40 meq PO BID [facility] Stop: 03/28/23 09:01 Last Admin: 03/27/23 09:25 Dose: 40 meq Documented By: JEY Rifaximin (Rifaximin 550 Mg Tablet) 550 mg PO BID [facility] Last Admin: 03/27/23 12:31 Dose: 550 mg Documented By: JEY Sodium Chloride (0.9 % Sodium Chloride Flush 3 Ml Syringe) 3 ml IVFLUSH QSHIFT [facility] Last Admin: 03/27/23 09:26 Dose: 3 ml Documented By: JEY Spironolactone (Spironolactone 25 Mg Tablet) 150 mg PO DAILY [facility]; Protocol Last Admin: 03/27/23 09:25 Dose: 150 mg Documented By: JEY Labs 03/26/23 14:29 03/27/23 05:38 Labs: Laboratory Results - last 24 hr 03/26/23 03/26/23 03/27/23 19:35 21:37 05:38 Anion Gap 13 Estim Creat Clear Calc 78.7 Estimated GFR > 60 POC Glucose 283 H 282 H Random Glucose 129 H Calcium 8.8 Ammonia 33 03/27/23 03/27/23 07:37 11:40 Anion Gap Estim Creat Clear Calc Estimated GFR POC Glucose 119 H 137 H Random Glucose Calcium Ammonia Assessment and Plan (1) Acute hepatic encephalopathy: Status: Acute Plan Pt is a 58-year-old male with a PMH significant for?alcoholic cirrhosis complicated by varices, ascites, and recurrent encephalopathy, hepatitis C s/p treatment, insulin-dependent diabetes type 2, and CAD s/p stent who presents to the ED with altered mental status. Pt will be admitted to the hospital for treatment of acute hepatic encephalopathy in the setting of decompensated alcoholic cirrhosis likely secondary to medication noncompliance. 1.Acute hepatic encephalopathy -ammonia 33 this a.m -lactulose 30 g t.i.d./rifaximin 550 mg p.o. b.i.d., -furosemide and spironolactone as ordered GI consult 2.HTN -acceptable control -adjust as indicated clinically 3.Insulin-dependent diabetes type 2 -acceptable control on current therapies -lispro correctional scale -adjust as indicated Full Code Ejx Requires ongoing hospitalization to correct hepatic encephalopathy and expert consultation Time Spent With Patient Time: Total time managing care of this patient today ____ minutes. Quality Stroke Does the patient have a stroke diagnosis?: No VTE Prior VTE?: No VTE Risk Level:: Medical - moderate - high VTE Device Contraindication: Treatment Not Indicated VTE Drug Contraindication: N/A - Med Ordered
[2023-03-27 16:49] LABS: Glucose, Whole Blood 185 mg/dL (60-115)
[2023-03-27] MEDS: Insulin Lispro 100 UNIT/ML 3 ML VIAL SUBCUT ×2 (16:54→21:20)
--- NOTE | 2023-03-27 17:35 | PC.NURSE ---
Pt A/O to self. Sleepy most of the day but easily arousable. Passed bedside swallow, good PO intake. Able to ambulate with standby assist. BM this afternoon. Seen by Dr. Zuluaga and Dr. Thomas. Awaiting bed on med surg
--- NOTE | 2023-03-27 18:51 | PM.EVENT ---
Event Note Date of Service: 03/27/23 Event Note: GI Consult-Full note dictated-History via patient(limited), his nurse. and the EMR Imp: 58 yo male well known to me with advanced cirrhosis who is followed by me locally and also at [facility]. His course has been complicated by ascites, hepatic encephalopathy, and esophageal varices with previous bleeding. He had a LVP on 03/24 with fluid analysis negative for SBP. On that day he seemed to be alert and with a good mental status. He came in yesterday, 03/26, with confusion and slightly elevated Ammonia level.There was no evidence of GI bleeding, sepsis, nor SBP by exam. His ammonia level has normalized today but he remains confused, although without definite asterixis. Diff dx: Resolving hepatic encephalopathy Rec: Observe overnight, continue current meds, and F/U labs in the AM. If his mental status and confusion persist I would recommend at least a diagnostic paracentesis to R/O SBP on 03/26 before the weekend. On the other hand, if things significantly improve tomorrow then he may be able to go home on his current medical regimen. Thanks. Time Spent With Patient Time: Total time managing care of this patient today ____ minutes.
--- NOTE | 2023-03-27 19:59 | CONS_ITS ---
DATE OF SERVICE: 03/27/2023 REFERRING PHYSICIAN: Koko Thomas DO REASON FOR CONSULTATION: Cirrhosis, ascites, and hepatic encephalopathy. HISTORY OF PRESENT ILLNESS: This has been obtained from the patient, although that is quite limited at the present time due to his mental status, from his nurse, and from both my office medical record and hospital medical record. The patient is a 58-year-old male well known to me with a history of cirrhosis in relation to previous alcohol abuse and hepatitis C. His cirrhosis has unfortunately progressed to the point of ascites, hepatic encephalopathy, and known esophageal varices with a fairly distant history of previous bleeding. He is presently followed both locally by me and at [facility]. Most recently, he has been troubled by a somewhat persistent and relapsing ascites despite diuretic use. I last saw him on March 24, when he came in for an elective ultrasound-guided large volume paracentesis. On that day, he was alert with a basically normal mental status. The fluid that was withdrawn on March 24 was negative for any sign of spontaneous bacterial peritonitis. Approximately 3 or 4 L were withdrawn on that day. He did go home on March 24, but over the ensuing 24-48 hours, his mental status deteriorated where he became quite confused and required him to come to the hospital. When he came to the hospital, the ammonia level was slightly elevated at 88. He is on a regimen of Xifaxan 550 mg twice a day and some lactulose for his encephalopathy. There have been no reported GI bleeding nor fevers. Overnight, he was treated with his lactulose and Xifaxan. His ammonia level normalized today, but he does remain confused. He is alert and denies any particular abdominal pain other than some soreness near his umbilical hernia. There has been no obvious bleeding since hospitalization. He has been afebrile. MEDICATIONS: At home included a recent increase in his diuretics with spironolactone 150 mg each morning and Lasix 40 mg each morning. Other medications include atorvastatin, nadolol 20 mg daily, omeprazole, Xifaxan, lactulose. His medications here in the hospital include acetaminophen p.r.n., atorvastatin, Colace p.r.n., iron, Lasix, gabapentin, hydroxyzine, insulin, lactulose, melatonin, Remeron, Corgard, omeprazole, Zofran, potassium, spironolactone 150 mg daily and Xifaxan 550 mg b.i.d. PAST MEDICAL HISTORY: Cirrhosis in relation to previous alcohol use and hepatitis C. His hepatitis C was treated with a course of pegylated interferon and ribavirin many years ago by Dr. Green at [place]. His liver disease has been complicated by ascites, encephalopathy, and esophageal varices with previous bleeding, requiring esophageal variceal banding. He has a history of diabetes mellitus, hypertension, tubular adenoma of the colon, coronary artery disease with previous stent placement in 2017, hyponatremia, surgery on his right hand and elbow. FAMILY HISTORY: Mother had colon cancer. He has no family history of liver disease. 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 He is single. He does not smoke. He stopped alcohol completely 10 years ago. REVIEW OF SYSTEMS: CONSTITUTIONAL: He had been feeling fairly well up until 48 hours ago. CARDIAC: No reported chest pain. PULMONARY: No coughing or hemoptysis. GI: As above. There has been no sin of bleeding nor vomiting. NEUROLOGIC: He has been confused, but there has been no seizure activity. PHYSICAL EXAMINATION: GENERAL: The patient is an alert male, who did not know where he was, did not know the year, and did not know my name, despite having known me for many years now. SKIN: Warm and dry. HEENT: Anicteric sclerae. NECK: Supple without lymphadenopathy. ABDOMEN: Soft, but distended with ascites. There is no focal tenderness nor mass. There was a soft and nontender umbilical hernia. EXTREMITIES: Had edema. NEUROLOGIC: He is confused, but does not have any definitive asterixis. LABORATORY DATA: As above. White blood cell count 6.0, hemoglobin 12.3, platelets 114,000. PT 15.3 with INR 1.3. Sodium 134, potassium 3.7, chloride 101, CO2 of 25, BUN 11, creatinine 1.1, glucose 284, calcium 9.0, total bilirubin 2.2. AST 53, ALT 30, alkaline phosphatase 187, albumin 2.6. The last Doppler ultrasound of the abdomen was in January and this was negative for any sign of the portal vein thrombus. IMPRESSION: The patient presents with advanced liver disease with associated complications of ascites, encephalopathy, and known esophageal varices. The most pressing issue is that of his mental status at the present time and his ascites. His ammonia level did normalize, but his mental status remains poor. Even though he just had a paracentesis on March 24 with a negative fluid analysis for spontaneous bacterial peritonitis, I would recommend a repeat ultrasound with further fluid analysis if his mental status does not improve by tomorrow. If his ammonia level remains normal with a poor mental status, I would also recommend obtaining a head CT to rule out any type of intercerebral bleed or subdural hematoma. On the other hand, if his mental status markedly improves by tomorrow, I would hold off on those studies. I would continue his outpatient medical regimen including his diuretics, beta samy and PPI. At this point, his diet may need to be held or at least he needs to be assisted with his meals given his limited mental status. He will have followup laboratories in the morning as well. MD IMANI Nguyen/MEAGAN / [phone] MTDDon
[2023-03-27 21:10] VITALS: BMI 23.0
[2023-03-27] MEDS: Mirtazapine 7.5 MG TABLET PO (21:10)
[2023-03-27 21:16] LABS: Glucose, Whole Blood 317 mg/dL (60-115)
[2023-03-27 21:18] VITALS: BP 138/80; PULSE 80; RESP 18; TEMP 36.2; O2SAT 98
[2023-03-28 03:36] VITALS: BP 104/56; PULSE 84; RESP 16; TEMP 36.7; O2SAT 99
[2023-03-28] MEDS: Omeprazole 20 MG CAPSULE.DR PO (05:42)
[2023-03-28 07:28] VITALS: BP 117/69; PULSE 79; RESP 18; TEMP 36.2; O2SAT 98
[2023-03-28 07:39] LABS: Glucose, Whole Blood 111 mg/dL (60-115)
[2023-03-28] MEDS: rifAXIMin 550 MG TABLET PO ×2 (09:50→21:50)
[2023-03-28] MEDS: Atorvastatin Calcium 20 MG TABLET PO (09:50)
[2023-03-28] MEDS: Ferrous Sulfate 324 MG TABLET.DR PO (09:50)
[2023-03-28] MEDS: Potassium Chloride ER 20 MEQ TAB.ER.PRT 40 MEQ PO (09:50)
[2023-03-28] MEDS: Insulin Glargine,Hum.rec.anlog 100 UNIT/ML 10 ML VIAL 46 UNIT SUBCUT (09:50)
[2023-03-28] MEDS: Furosemide 20 MG TABLET PO (09:50)
[2023-03-28] MEDS: Spironolactone 25 MG TABLET 150 MG PO (09:50)
[2023-03-28] MEDS: 0.9 % Sodium Chloride Flush 3 ML SYRINGE IVFLUSH ×3 (09:51→23:48)
[2023-03-28] MEDS: Lactulose 20 GM/30 ML SOLUTION 30 GM PO ×3 (09:51→21:52)
[2023-03-28] MEDS: nadoloL 20 MG TABLET PO (09:51)
[2023-03-28 10:43] LABS: MANUAL DIFF FLAG NO
[2023-03-28 10:45] LABS: Basophils Absolute Auto 0.1 X10*3/uL (0.0-0.2); Eosinophils Absolute Auto 0.3 X10*3/uL (0.0-0.4); Eosinophils Percent Auto 5.9 % (0-4); Hematocrit 32.9 % (42.0-52.0); Hemoglobin 11.5 g/dl (14.0-18.0); Imm Gran Abs Auto 0.02 X10*3/uL (0.00-0.03); Imm Gran Pct Auto 0.4 % (0.0-0.4); Lymphocytes Absolute Auto 0.8 X10*3/uL (1.2-4.9); Lymphocytes Percent Auto 16.6 % (20-40); Mean Corpuscular Hemoglobin 30.2 pg (27.0-33.0); Mean Corpuscular Volume 86.4 fL (80.0-98.0); Mean Platelet Volume 10.7 fL (9.4-12.4); Monocytes Absolute Auto 0.6 X10*3/uL (0.1-1.2); Monocytes Percent Auto 12.5 % (2-11); Neutrophils Absolute Auto 3.2 x10*3/uL (2.0-8.3); Neutrophils Percent Auto 63.6 % (45-73); Red Blood Count 3.81 X10*6/uL (4.60-5.80); Red Cell Distribution Width 13.7 % (11.0-16.0); White Blood Count 5.1 X10*3/uL (4.8-10.8)
[2023-03-28 10:47] LABS: Platelet Count 97 X10*3/uL (160-400)
[2023-03-28 10:52] LABS: Ammonia 44 umol/L (13-55)
[2023-03-28 11:03] LABS: Alanine Aminotransferase 28 U/L (0-40); Albumin Level 2.4 g/dL (3.5-5.0); Alkaline Phosphatase 181 U/L (39-117); Anion Gap 11 (12-20); Aspartate Amino Transferase 55 U/L (5-37); Bilirubin Total 1.9 mg/dL (0.0-1.0); Blood Urea Nitrogen 9 mg/dL (9-16); Calcium 8.8 mg/dL (8.4-10.2); Carbon Dioxide 22 mmol/L (22-29); Chloride 106 mmol/L (96-108); Creatinine Clr Calc Pharmacy 86.4; Estimated Glomerular Filt Rate > 60; Glucose Random 133 mg/dL (60-115); Potassium 3.5 mmol/L (3.3-5.1); Sodium 135 mmol/L (135-145); Total Protein 6.4 g/dL (6.5-8.0)
[2023-03-28 11:33] LABS: Glucose, Whole Blood 142 mg/dL (60-115)
--- NOTE | 2023-03-28 12:58 | P.PNIM_ITS ---
Subjective Subjective Date of Service: 03/28/23 Interval History: Remains confused to time and place Review of Systems Denies chest pain Denies shortness of breath Denies nausea vomiting diarrhea Denies fever chills Physical Exam 2 Vital Signs: Vital Signs: Last Vital Signs Temp 97.1 F 03/28/23 07:28 Pulse 79 03/28/23 07:28 Resp 18 03/28/23 07:28 BP 117/69 03/28/23 07:28 Pulse Ox 98 03/28/23 07:28 O2 Del Method Room Air 03/28/23 07:28 BMI result Body Mass Index 23.0 Const: Other: Awake alert no acute distress Resp: Other: Clear to auscultation bilaterally no rales rhonchi or wheezes Cardio: Other: No S4; positive S1-S2; no S3 murmurs rubs or gallops Extrem: Other: No edema bilaterally Objective Data Active Medications Acetaminophen (Acetaminophen 325 Mg Tablet) 650 mg PO Q6H PRN PRN Reason: Pain, Mild (Pain Scale 1-3) Atorvastatin Calcium (Atorvastatin Calcium 20 Mg Tablet) 20 mg PO DAILY [facility] Last Admin: 03/28/23 09:50 Dose: 20 mg Documented By: ANA Benzonatate (Benzonatate 100 Mg Capsule) 100 mg PO TID PRN PRN Reason: Cough Dextrose (Dextrose 50 % 25 Gm/50 Ml Syringe) 25 gm IVPUSH Q15M PRN; Protocol PRN Reason: per Hypoglycemia Standing Ord. Docusate Sodium (Docusate Sodium 100 Mg Capsule) 100 mg PO DAILY PRN PRN Reason: Constipation Ferrous Sulfate (Ferrous Sulfate 324 Mg Tablet.Dr) 324 mg PO DAILY [facility] Last Admin: 03/28/23 09:50 Dose: 324 mg Documented By: ANA Furosemide (Furosemide 20 Mg Tablet) 20 mg PO DAILY [facility]; Protocol Last Admin: 03/28/23 09:50 Dose: 20 mg Documented By: ANA Gabapentin (Gabapentin 300 Mg Capsule) 300 mg PO BEDTIME PRN PRN Reason: Pain, Mild (Pain Scale 1-3) Glucose (Glucose Gel 15 Gm Gel..Gram.) 15 gm PO Q15M PRN; Protocol PRN Reason: per Hypoglycemia Standing Ord. Hydroxyzine HCl (Hydroxyzine Hcl 50 Mg Tablet) 50 mg PO BEDTIME PRN PRN Reason: anxiety Insulin Glargine (Insulin Glargine,Hum.Rec.Anlog 100 Unit/Ml 10 Ml Vial) 46 unit SUBCUT DAILY [facility] Last Admin: 03/28/23 09:50 Dose: 46 unit Documented By: ANA Insulin Human Lispro (Insulin Lispro 100 Unit/Ml 3 Ml Vial) 0 unit SUBCUT QIDACHS [facility]; Protocol Last Admin: 03/28/23 11:35 Dose: Not Given Documented By: ANA Non-Admin Reason: No Insulin Coverage Lactulose (Lactulose 20 Gm/30 Ml Solution) 30 gm PO TID [facility] Last Admin: 03/28/23 09:51 Dose: 30 gm Documented By: ANA Lidocaine (Lidocaine 4 % Patch Adh..Patch) 1 patch TRANSDERMA DAILY PRN PRN Reason: Pain, Moderate(Pain Scale 4-6) Melatonin (Melatonin 3 Mg Tablet) 6 mg PO BEDTIME PRN PRN Reason: Insomnia Mirtazapine (Mirtazapine 7.5 Mg Tablet) 7.5 mg PO BEDTIME [facility] Last Admin: 03/27/23 21:10 Dose: 7.5 mg Documented By: OFELIA Nadolol (Nadolol 20 Mg Tablet) 20 mg PO DAILY [facility]; Protocol Last Admin: 03/28/23 09:51 Dose: 20 mg Documented By: ANA Omeprazole (Omeprazole 20 Mg Capsule.Dr) 20 mg PO DAILY@0630 [facility] Last Admin: 03/28/23 05:42 Dose: 20 mg Documented By: OFELIA Ondansetron HCl (Ondansetron Hcl 4 Mg/2 Ml Vial) 4 mg IVPUSH Q8H PRN PRN Reason: Nausea and Vomiting Rifaximin (Rifaximin 550 Mg Tablet) 550 mg PO BID [facility] Last Admin: 03/28/23 09:50 Dose: 550 mg Documented By: ANA Sodium Chloride (0.9 % Sodium Chloride Flush 3 Ml Syringe) 3 ml IVFLUSH QSHIFT [facility] Last Admin: 03/28/23 09:51 Dose: 3 ml Documented By: ANA Spironolactone (Spironolactone 25 Mg Tablet) 150 mg PO DAILY [facility]; Protocol Last Admin: 03/28/23 09:50 Dose: 150 mg Documented By: ANA Labs 03/28/23 10:38 03/28/23 10:38 Labs: Laboratory Results - last 24 hr 03/27/23 03/27/23 03/28/23 16:43 21:12 07:27 MCV MCH MCHC RDW Plt Count MPV Immature Gran % (Auto) Neut % (Auto) Lymph % (Auto) [place] % (Auto) Eos % (Auto) Baso % (Auto) Lymph # (Auto) [place] # (Auto) Eos # (Auto) Baso # (Auto) Abs Immat Gran (auto) Absolute Neuts (auto) Absolute Nucleated RBC Nucleated RBC % (auto) Anion Gap Estim Creat Clear Calc Estimated GFR POC Glucose 185 H 317 H 111 Random Glucose Calcium Total Bilirubin AST ALT Alkaline Phosphatase Ammonia Total Protein Albumin 03/28/23 03/28/23 10:38 11:17 MCV 86.4 MCH 30.2 MCHC 35.0 RDW 13.7 Plt Count 97 L MPV 10.7 Immature Gran % (Auto) 0.4 Neut % (Auto) 63.6 Lymph % (Auto) 16.6 L [place] % (Auto) 12.5 H Eos % (Auto) 5.9 H Baso % (Auto) 1.0 Lymph # (Auto) 0.8 L [place] # (Auto) 0.6 Eos # (Auto) 0.3 Baso # (Auto) 0.1 Abs Immat Gran (auto) 0.02 Absolute Neuts (auto) 3.2 Absolute Nucleated RBC 0.000 Nucleated RBC % (auto) 0.0 Anion Gap 11 L Estim Creat Clear Calc 86.4 Estimated GFR > 60 POC Glucose 142 H Random Glucose 133 H Calcium 8.8 Total Bilirubin 1.9 H AST 55 H ALT 28 Alkaline Phosphatase 181 H Ammonia 44 Total Protein 6.4 L Albumin 2.4 L Assessment and Plan (1) Acute hepatic encephalopathy: Status: Acute (2) Hyperglycemia due to diabetes mellitus: Status: Acute Plan Pt is a 58-year-old male with a PMH significant for?alcoholic cirrhosis complicated by varices, ascites, and recurrent encephalopathy, hepatitis C s/p treatment, insulin-dependent diabetes type 2, and CAD s/p stent who presents to the ED with altered mental status. Pt will be admitted to the hospital for treatment of acute hepatic encephalopathy in the setting of decompensated alcoholic cirrhosis likely secondary to medication noncompliance. 1.Acute hepatic encephalopathy -ammonia 44 this a.m.. Still confused -lactulose 30 g t.i.d./rifaximin 550 mg p.o. b.i.d., -furosemide and spironolactone as ordered -as discussed with GI; will order CT of head as well as paracentesis to rule out SBP 2.HTN -acceptable control -adjust as indicated clinically 3.Insulin-dependent diabetes type 2 -acceptable control on current therapies -lispro correctional scale -adjust as indicated Full Code Lovejohanx Requires ongoing hospitalization to correct hepatic encephalopathy and expert consultation Time Spent With Patient Time: Total time managing care of this patient today ____ minutes. Quality Stroke Does the patient have a stroke diagnosis?: No VTE Prior VTE?: No VTE Risk Level:: Medical - moderate - high VTE Device Contraindication: Treatment Not Indicated VTE Drug Contraindication: N/A - Med Ordered
--- NOTE | 2023-03-28 13:36 | MHC.CM.PN ---
Patient lives by himself. He uses a walker. He requires assist at times. He states that he is active with [facility]. His PCP is Dr Dony Blake. A task was sent to remove Dr Strickland and add the new PCP. A referral has been sent to [facility] to resume services at [place] [facility] is on file. DP home resume [facility]. Patient will arrange for a family member to provide transportation home.
[2023-03-28] MEDS: Lidocaine HCl 1 % MPF 5 ML VIAL SUBCUT (14:52)
[2023-03-28 15:03] LABS: MN% 93.9 %; PMN% 6.1 %; WBC Peritoneal Fluid 0.099 X10*3/uL
[2023-03-28 15:06] LABS: RBC Peritoneal Fluid < 0.002 X10*6/uL
[2023-03-28 15:42] VITALS: BP 127/74; PULSE 78; RESP 18; TEMP 36.2; O2SAT 100
[2023-03-28 16:06] LABS: BF Shift QC OK YES; Lymphocyte Peritoneal Fl 33 %; Monocytes Peritoneal Fl 28 %; Neutrophils Peritoneal Fluid 2 %; Other Peritioneal Fl 37 %
[2023-03-28 16:27] LABS: Glucose, Whole Blood 155 mg/dL (60-115)
[2023-03-28] MEDS: Insulin Lispro 100 UNIT/ML 3 ML VIAL SUBCUT ×2 (17:02→21:50)
--- NOTE | 2023-03-28 17:27 | P.PNGI_ITS ---
Subjective Subjective Date of Service: 03/28/23 Interval History: Ozzie is alert, and oriented to person, place and year. He seems much better than yesterday. He is visiting with his sister, Elvira, and his son, Cristi. He denies any specific abdominal pain, N/V, diarrhea. His appetite is diminished. Critical Care Time (minutes): 0 Physical Exam 2 Vital Signs: Vital Signs: Last Vital Signs Temp 97.2 F 03/28/23 15:42 Pulse 78 03/28/23 15:42 Resp 18 03/28/23 15:42 BP 127/74 03/28/23 15:42 Pulse Ox 100 03/28/23 15:42 O2 Del Method Room Air 03/28/23 15:42 BMI result Body Mass Index 23.0 Const: General: cooperative, comfortable and no acute distress O rientation/consciousness: oriented to person, oriented to place and oriented to time HEENT: Other: Anicteric sclerae, MMM GI: Other: Abd-softer after today's paracentesis, +BS, and no significant tenderness Neuro: Other: Mental status much better than yesterday; General: oriented to person, oriented to place and oriented to time M otor exam (neuro): Asterixis during motor activity present (No Asterixis) Objective Data Labs 03/28/23 10:38 03/28/23 10:38 Labs: Laboratory Results - last 24 hr 03/27/23 03/28/23 03/28/23 21:12 07:27 10:38 WBC 5.1 RBC 3.81 L Hgb 11.5 L Hct 32.9 L MCV 86.4 MCH 30.2 MCHC 35.0 RDW 13.7 Plt Count 97 L MPV 10.7 Immature Gran % (Auto) 0.4 Neut % (Auto) 63.6 Lymph % (Auto) 16.6 L [place] % (Auto) 12.5 H Eos % (Auto) 5.9 H Baso % (Auto) 1.0 Lymph # (Auto) 0.8 L [place] # (Auto) 0.6 Eos # (Auto) 0.3 Baso # (Auto) 0.1 Abs Immat Gran (auto) 0.02 Absolute Neuts (auto) 3.2 Absolute Nucleated RBC 0.000 Nucleated RBC % (auto) 0.0 Sodium 135 Potassium 3.5 Chloride 106 Carbon Dioxide 22 Anion Gap 11 L BUN 9 Creatinine 0.82 Estim Creat Clear Calc 86.4 Estimated GFR > 60 POC Glucose 317 H 111 Random Glucose 133 H Calcium 8.8 Total Bilirubin 1.9 H AST 55 H ALT 28 Alkaline Phosphatase 181 H Ammonia 44 Total Protein 6.4 L Albumin 2.4 L Peritoneal WBC Peritoneal RBC Periton Neutrophils Periton Lymphocytes Peritoneal Monocytes Peritoneal Other Cells 03/28/23 03/28/23 03/28/23 11:17 14:24 16:23 WBC RBC Hgb Hct MCV MCH MCHC RDW Plt Count MPV Immature Gran % (Auto) Neut % (Auto) Lymph % (Auto) [place] % (Auto) Eos % (Auto) Baso % (Auto) Lymph # (Auto) [place] # (Auto) Eos # (Auto) Baso # (Auto) Abs Immat Gran (auto) Absolute Neuts (auto) Absolute Nucleated RBC Nucleated RBC % (auto) Sodium Potassium Chloride Carbon Dioxide Anion Gap BUN Creatinine Estim Creat Clear Calc Estimated GFR POC Glucose 142 H 155 H Random Glucose Calcium Total Bilirubin AST ALT Alkaline Phosphatase Ammonia Total Protein Albumin Peritoneal WBC 0.099 Peritoneal RBC < 0.002 Periton Neutrophils 2 Periton Lymphocytes 33 Peritoneal Monocytes 28 Peritoneal Other Cells 37 Procedures Date of Service Date of Service: 03/28/23 Progress Note: A&P Assessment and plan (1) Acute hepatic encephalopathy: Status: Acute (2) Cirrhosis of liver: Status: Inactive (3) Abdominal ascites: Status: Inactive Plan Imp/Plan: Cirrhosis with associated complications of ascites, hepatic encephalopathy, and esophageal varices. He presently appears back to his baseline, both mentally and physically. There is no evidence of SBP, GI bleeding, nor any other acute issue. I would continue his current regimen and he should resume his usual meds at home. The goal will be to maintain his ascites on the outpatient diuretic regimen for which he has prescriptions at home and hopefully avoid the need for frequent large volume paracenteses. I will arrange for outpatient F/U of his chemistries as well. He should continue his Xifaxan and Lactulose at home. He will see me in 04/2023, and he has a F/U at [facility] liver [facility] clinic in 05/2023 as well. I have discussed this with Cristi Horne, and Elvira in detail. They seem comfortable with this plan. Thanks Time Spent With Patient Time: Total time managing care of this patient today ____ minutes. Quality Stroke Does the patient have a stroke diagnosis?: No VTE Prior VTE?: No VTE Risk Level:: Medical - moderate - high VTE Device Contraindication: Treatment Not Indicated VTE Drug Contraindication: N/A - Med Ordered
[2023-03-28 17:33] LABS: Glucose Peritoneal Fluid 159 MG/DL; Total Protein Peritoneal Fluid 0.6 GM/DL
[2023-03-28 21:35] LABS: Glucose, Whole Blood 187 mg/dL (60-115)
[2023-03-28] MEDS: Mirtazapine 7.5 MG TABLET PO (21:50)
[2023-03-28 23:34] VITALS: BP 121/73; PULSE 94; RESP 16; TEMP 36.1; O2SAT 98
[2023-03-29] MEDS: Morphine Sulfate 2 MG/ML CARTRIDGE 1 MG IVPUSH ×2 (00:11→03:55)
[2023-03-29 03:10] VITALS: BP 115/73; PULSE 105; RESP 16; TEMP 36.4; O2SAT 98
[2023-03-29] MEDS: Omeprazole 20 MG CAPSULE.DR PO (06:35)
[2023-03-29 07:21] VITALS: BP 128/75; PULSE 82; RESP 18; TEMP 36.1; O2SAT 99
[2023-03-29 07:34] LABS: Glucose, Whole Blood 152 mg/dL (60-115)
[2023-03-29] MEDS: Insulin Glargine,Hum.rec.anlog 100 UNIT/ML 10 ML VIAL 46 UNIT SUBCUT (08:14)
[2023-03-29] MEDS: Insulin Lispro 100 UNIT/ML 3 ML VIAL SUBCUT (08:15)
[2023-03-29] MEDS: Furosemide 20 MG TABLET PO (08:16)
[2023-03-29] MEDS: nadoloL 20 MG TABLET PO (08:16)
[2023-03-29] MEDS: Spironolactone 25 MG TABLET 150 MG PO (08:16)
[2023-03-29] MEDS: Ferrous Sulfate 324 MG TABLET.DR PO (08:17)
[2023-03-29] MEDS: Lactulose 20 GM/30 ML SOLUTION 30 GM PO (08:17)
[2023-03-29] MEDS: rifAXIMin 550 MG TABLET PO (08:17)
[2023-03-29] MEDS: Atorvastatin Calcium 20 MG TABLET PO (08:17)
--- NOTE | 2023-03-29 10:13 | PM.DS ---
DS: Providers Provider Date of Service: 03/29/23 Date of admission: 03/26/23 18:54 Primary care physician: César Strickland MD Consults: 03/26/23 18:54 Consult to Gastroenterology Routine Consulting Provider: Larry Miller Reason for consultation: Recurrent hepatic encephalopathy, ascites DS: Diagnosis Discharge Diagnosis (1) Acute hepatic encephalopathy: Status: Acute (2) Cirrhosis of liver: Status: Inactive (3) Abdominal ascites: Status: Inactive DS: Summary Hospital Course Hospital Course: Date of Service: 03/26/23 Attending physician on admission: Koko Thomas Chief Complaint: Altered mental status Pt is a 58-year-old male with a PMH significant for?alcoholic cirrhosis complicated by varices, ascites, and recurrent encephalopathy, hepatitis C s/p treatment, insulin-dependent diabetes type 2, and CAD s/p stent who presents to the ED with altered mental status. Patient is currently alert oriented to self only, not answering appropriately. HPI thus obtained from chart and provider review, and family who is at bedside. Family states patient was last seen in his normal state of health last night. Patient lives alone but is monitored with cameras by his family to ensure safety and medication compliance. Family note that last night or early this morning patient removed 2 of the cameras and turned the other one around. Family questions whether pt has been compliant with his medications, which has been a problem before. Family also notes patient's diuretics have recently been reduced d/t electrolyte imbalances, and are currently being reconfigured. Family also report patient has been on liver transplant list for a number of years now. Of note, pt with recurrent ascites requiring q2 week large volume paracentesis, last on 03/24/2023 which removed 8L. In the ED patient's temperature was as low as 95.8 degrees, though otherwise hemodynamically stable. Labs were significant for stable anemia of 12.3/34.5, sodium 134, random glucose 284, bilirubin 2.2, AST 53, alk-phos 187, ammonia 81, and albumin 2.6. Ethyl alcohol negative at <10. Pt was treated with lactulose 30 g po. Pt will be admitted to the hospital for treatment of acute hepatic encephalopathy in the setting of decompensated alcoholic cirrhosis likely secondary to medication noncompliance. Hospital course: 58-year-old male with a PMH significant for?alcoholic cirrhosis complicated by varices, ascites, and recurrent encephalopathy, hepatitis C s/p treatment, insulin-dependent diabetes type 2, and CAD s/p stent who presents to the ED with altered mental status. Pt will be admitted to the hospital for treatment of acute hepatic encephalopathy in the setting of decompensated alcoholic cirrhosis likely secondary to medication noncompliance. 1.Acute hepatic encephalopathy admitted with ammonia of 81 treated with lactulose and rifaximin ammonia level improved confusion resolved patient seems to be at baseline recommend compliance with all home medications, is status post paracentesis fluid not consistent with sbp , CT head showed no acute intracranial pathology. 2.HTN continue all home medications stable blood pressure 3.Insulin-dependent diabetes type 2 stable blood sugars. Time Spent with Patient Time attestation: Total time managing care of this patient today ____ minutes. Discharge coordination time: Greater than 30 minutes Quality: Safe Use of Opioids Does Pt have an Active Cancer Diagnosis on the Problem List?: No Quality: Stroke Does the patient have a stroke diagnosis?: No Physical Exam Vital Signs: Vital Signs: Last Vital Signs Temp 97.0 F 03/29/23 07:21 Pulse 82 03/29/23 07:21 Resp 18 03/29/23 07:21 BP 128/75 03/29/23 07:21 Pulse Ox 99 03/29/23 07:21 O2 Del Method Room Air 03/29/23 07:21 BMI result Body Mass Index 23.0 Const: Other: General awake alert, in no acute distress. Neck supple no JVD. CVS regular rate rhythm, Respiratory lungs clear to auscultation, no respiratory distress, no wheeze, no rhonchi. Gastrointestinal abdomen distended, nontender, bowel sounds audible, no guarding , no rigidity. Extremities no clubbing cyanosis or edema. Neuro non focal , moving all 4 extremity speech clear. Skin no rash Psych appropriate affect DS: Data Data Completed and Pending Completed studies during hospitalization [Text1]: Procedures Drainage of Peritoneal Cavity, Percutaneous Approach (09/09/22) Inspection of Upper Intestinal Tract, Via Natural or Artificial Opening Endoscopic (09/09/22) Transfusion of Nonautologous Red Blood Cells into Peripheral Vein, Percutaneous Approach (09/09/22) Labs on day of discharge: Laboratory Results - last 24 hr 03/28/23 03/28/23 03/28/23 10:38 11:17 14:24 WBC 5.1 RBC 3.81 L Hgb 11.5 L Hct 32.9 L MCV 86.4 MCH 30.2 MCHC 35.0 RDW 13.7 Plt Count 97 L MPV 10.7 Immature Gran % (Auto) 0.4 Neut % (Auto) 63.6 Lymph % (Auto) 16.6 L [place] % (Auto) 12.5 H Eos % (Auto) 5.9 H Baso % (Auto) 1.0 Lymph # (Auto) 0.8 L [place] # (Auto) 0.6 Eos # (Auto) 0.3 Baso # (Auto) 0.1 Abs Immat Gran (auto) 0.02 Absolute Neuts (auto) 3.2 Absolute Nucleated RBC 0.000 Nucleated RBC % (auto) 0.0 Sodium 135 Potassium 3.5 Chloride 106 Carbon Dioxide 22 Anion Gap 11 L BUN 9 Creatinine 0.82 Estim Creat Clear Calc 86.4 Estimated GFR > 60 POC Glucose 142 H Random Glucose 133 H Calcium 8.8 Total Bilirubin 1.9 H AST 55 H ALT 28 Alkaline Phosphatase 181 H Ammonia 44 Total Protein 6.4 L Albumin 2.4 L Peritoneal WBC 0.099 Peritoneal RBC < 0.002 Periton Neutrophils 2 Periton Lymphocytes 33 Peritoneal Monocytes 28 Peritoneal Other Cells 37 Peritoneal Tot Protein 0.6 Peritoneal Glucose 159 03/28/23 03/28/23 03/29/23 16:23 21:31 07:24 WBC RBC Hgb Hct MCV MCH MCHC RDW Plt Count MPV Immature Gran % (Auto) Neut % (Auto) Lymph % (Auto) [place] % (Auto) Eos % (Auto) Baso % (Auto) Lymph # (Auto) [place] # (Auto) Eos # (Auto) Baso # (Auto) Abs Immat Gran (auto) Absolute Neuts (auto) Absolute Nucleated RBC Nucleated RBC % (auto) Sodium Potassium Chloride Carbon Dioxide Anion Gap BUN Creatinine Estim Creat Clear Calc Estimated GFR POC Glucose 155 H 187 H 152 H Random Glucose Calcium Total Bilirubin AST ALT Alkaline Phosphatase Ammonia Total Protein Albumin Peritoneal WBC Peritoneal RBC Periton Neutrophils Periton Lymphocytes Peritoneal Monocytes Peritoneal Other Cells Peritoneal Tot Protein Peritoneal Glucose Discharge Plan Discharge Anticipated Discharge Date/Time: 03/29/23 10:05 Patient Disposition: Home, Self-Care Discharge Diagnosis: Acute hepatic encephalopathy Referrals: César Strickland MD [Primary Care Provider] - 1 Week Discharge Medications: Continued atorvastatin 20 mg tablet 20 mg PO DAILY insulin glargine-yfgn [Semglee(insulin glarg-yfgn)Pen] 100 unit/mL (3 mL) insulin pen 66 unit subcut DAILY Xifaxan 550 mg Tablet 550 mg PO BID Qty: 60 0RF nadolol 20 mg tablet 20 mg PO DAILY gabapentin 300 mg capsule 300 mg PO BEDTIME PRN (Reason: Pain) hydroxyzine HCl 50 mg tablet 50 mg PO BEDTIME PRN (Reason: anxiety) lidocaine 5 % adhesive patch,medicated 1 patch topical DAILY PRN (Reason: Pain) omeprazole 20 mg capsule,delayed release(DR/EC) 20 mg PO DAILY furosemide 20 mg tablet 20 mg PO DAILY spironolactone 50 mg tablet 150 mg PO DAILY mirtazapine 7.5 mg tablet 7.5 mg PO BEDTIME lactulose 20 gram/30 mL solution 20 g PO TID Icy Hot (menthol) 5 % Adhesive Patch,Medicated 1 patch TOPICAL DAILY ferrous sulfate 325 mg (65 mg iron) tablet 325 mg PO DAILY Discharge Orders: Discharge Order (Routine); Ordered 03/29/23 Ordered By: Aj Mijares Diet: Advance to usual diet Activity on Discharge: As tolerated Stand Alone Forms: Patient Portal Discharge page Care Plan Goals: Acute confusion resolved recommend to continue home medications as above Health Concerns: Diabetes continue insulin follow diabetic diet Plan of Treatment: Outpatient follow-up with primary care physician call for appointment. Assessment: As directed
--- NOTE | 2023-03-29 10:25 | MHC.CM.PN ---
Pt has been medically cleared for DC, his daughter picked him up to transport home, she requested information on home care services that can provide daily med cues. She said he does not require Skilled VNA services. Pt has 3 hours a week [employer] services from [facility]. CM gave info on [facility], may be able to provide additional care under his medicaid insurance.
== END 2023-03-29 11:55 | disposition home or self-care (01) | DRG 280 ==
LOC: HO.ED 17:26 → HO.EDOVER 20:24 → HO.S3 03-27 19:03
PROVIDERS: Hospitalist; Physician Assistant; Admitting Provider Student in an Organized Health Care Education/Training Program; Emergency Provider Emergency Medicine; PCP Physician Assistant Medical; Visit Provider Hospitalist
DX: K70.31 Alcoholic cirrhosis of liver with ascites (principal); E11.9 Type 2 diabetes mellitus without complications; K76.82 Hepatic encephalopathy; I10 Essential (primary) hypertension; I25.10 Atherosclerotic heart disease of native coronary artery without angina pectoris; Z95.5 Presence of coronary angioplasty implant and graft; E78.00 Pure hypercholesterolemia, unspecified; Z79.4 Long term (current) use of insulin; Z79.899 Other long term (current) drug therapy
CPT/HCPCS: 36415; 49083; 70450; 80048; 80053; 80076; 80307; 82140; 82945; 82947; 83735; 84157; 85025; 85610; 85730; 89051; 99285; J2270

== ENCOUNTER 2023-03-26 18:54 | Outpatient (BNV) | payer OTHER, SELFPAY | END 2023-03-28 14:00 | PROVIDERS: Admitting Provider Student in an Organized Health Care Education/Training Program; Emergency Provider Emergency Medicine; PCP Internal Medicine; Visit Provider Radiology Diagnostic Radiology | DX: R18.8 Other ascites (principal) | CPT/HCPCS: 49083 ==

== ENCOUNTER → 2023-03-26 18:54 | Outpatient (BNV) | payer OTHER, SELFPAY | PROVIDERS: Admitting Provider Student in an Organized Health Care Education/Training Program; Emergency Provider Emergency Medicine; PCP Internal Medicine; Visit Provider Student in an Organized Health Care Education/Training Program | DX: K76.82 Hepatic encephalopathy (principal); E11.65 Type 2 diabetes mellitus with hyperglycemia | CPT/HCPCS: 99223; 99233; 99239 ==

== ENCOUNTER 2023-04-04 11:43 | Outpatient (REF) | payer OTHER, SELFPAY ==
[2023-04-04 12:41] LABS: Ammonia 86 umol/L (13-55)
[2023-04-04 12:49] LABS: Alanine Aminotransferase 44 U/L (0-40); Albumin Level 2.5 g/dL (3.5-5.0); Alkaline Phosphatase 251 U/L (39-117); Anion Gap 13 (12-20); Aspartate Amino Transferase 74 U/L (5-37); Bilirubin Direct 0.9 mg/dL (0.0-0.5); Bilirubin Total 2.2 mg/dL (0.0-1.0); Blood Urea Nitrogen 16 mg/dL (9-16); Carbon Dioxide 25 mmol/L (22-29); Chloride 101 mmol/L (96-108); Estimated Glomerular Filt Rate 56; Glucose Random 308 mg/dL (60-115); Potassium 3.9 mmol/L (3.3-5.1); Sodium 135 mmol/L (135-145); Total Protein 6.9 g/dL (6.5-8.0)
== END 2023-04-04 11:44 | disposition home or self-care (01) ==
LOC: HO.LAB 11:43
PROVIDERS: PCP Internal Medicine; Visit Provider Internal Medicine
DX: K70.31 Alcoholic cirrhosis of liver with ascites (principal)
CPT/HCPCS: 36415; 80048; 80076; 82140

== ENCOUNTER 2023-04-07 12:05 | Day surgery (SDC) | payer OTHER, SELFPAY ==
--- NOTE | ~2023-04-07 | US_ITS ---
ULTRASOUND PARACENTESIS HISTORY: Ascites. Risks and benefits and possible complications were discussed with the patient and consent form was signed. A safe pocket of ascitic fluid was identified using ultrasound guidance, and the overlying skin was marked. The abdomen prepped and draped in sterile fashion. 1% lidocaine was used as a local anesthetic. Using ultrasound guidance, a 5 fr catheter was placed into the ascitic pocket. 4.2 liters of yellow fluid was removed passively. The catheter was then removed. Fluid was sent for analysis. A few vendor representatives images from before and after the examination were obtained. The procedure was performed by Matthew Woodruff PA-C and supervised by Dr. Culp. US/US paracentesis abd w/image IMPRESSION: Ultrasound-guided paracentesis as described above. No immediate complications
[2023-04-07 12:53] VITALS: BMI 27.1
[2023-04-07 13:00] VITALS: BP 126/67; PULSE 75; RESP 18; TEMP 36.4; O2SAT 100
[2023-04-07 13:15] LABS: Glucose, Whole Blood 231 mg/dL (60-115)
--- NOTE | 2023-04-07 13:52 | PC.NURSE ---
IV insertion attempts by author and one by pan cherry rn. IV inserted by Dr. Hernandez with ultrasound
[2023-04-07] MEDS: Lidocaine HCl 1 % MPF 5 ML VIAL SUBCUT (14:34)
[2023-04-07 14:55] VITALS: BP 118/73; PULSE 71; RESP 16; TEMP 36.6; O2SAT 100
[2023-04-07 15:10] VITALS: BP 125/73; PULSE 67; RESP 16; O2SAT 100
[2023-04-07 15:20] VITALS: BP 134/72; PULSE 67; RESP 16; TEMP 36.9; O2SAT 100
[2023-04-07 16:18] LABS: RBC Peritoneal Fluid < 0.002 X10*6/uL
[2023-04-07 16:19] LABS: BF Shift QC OK YES; Lymphocyte Peritoneal Fl 15 %; Monocytes Peritoneal Fl 66 %; Neutrophils Peritoneal Fluid 3 %; Other Peritioneal Fl 16 %
== END 2023-04-07 15:47 | disposition home or self-care (01) ==
PROVIDERS: Radiology Diagnostic Radiology; PCP Physician Assistant Medical; Visit Provider Internal Medicine
DX: K70.31 Alcoholic cirrhosis of liver with ascites (principal)
CPT/HCPCS: 49083; 82947; 87070; 87073; 87205; 89051; P9047

== ENCOUNTER → 2023-04-07 14:15 | Outpatient (BNV) | payer OTHER, SELFPAY | PROVIDERS: PCP Physician Assistant Medical; Visit Provider Radiology Diagnostic Radiology | DX: R18.8 Other ascites (principal) | CPT/HCPCS: 49083 ==

== ENCOUNTER 2023-04-12 11:44 | Inpatient (IN) | payer OTHER, SELFPAY ==
[2023-04-12 11:53] VITALS: BP 134/74; PULSE 86; RESP 16; TEMP 36.6; O2SAT 100; BMI 19.0
[2023-04-12 12:10] LABS: MANUAL DIFF FLAG NO
[2023-04-12 12:14] LABS: Basophils Percent Auto 0.6 % (0-2); Eosinophils Absolute Auto 0.2 X10*3/uL (0.0-0.4); Eosinophils Percent Auto 3.2 % (0-4); Hematocrit 35.9 % (42.0-52.0); Hemoglobin 12.9 g/dl (14.0-18.0); Imm Gran Abs Auto 0.02 X10*3/uL (0.00-0.03); Imm Gran Pct Auto 0.3 % (0.0-0.4); Lymphocytes Absolute Auto 0.8 X10*3/uL (1.2-4.9); Mean Corpuscular HGB Conc 35.9 g/dl (31.0-36.0); Mean Corpuscular Hemoglobin 30.6 pg (27.0-33.0); Mean Corpuscular Volume 85.3 fL (80.0-98.0); Monocytes Absolute Auto 0.5 X10*3/uL (0.1-1.2); Monocytes Percent Auto 8.8 % (2-11); Neutrophils Absolute Auto 4.6 x10*3/uL (2.0-8.3); Neutrophils Percent Auto 74.1 % (45-73); Red Blood Count 4.21 X10*6/uL (4.60-5.80); Red Cell Distribution Width 14.4 % (11.0-16.0); White Blood Count 6.2 X10*3/uL (4.8-10.8)
[2023-04-12 12:15] LABS: Platelet Count 91 X10*3/uL (160-400)
[2023-04-12 12:22] LABS: Ammonia 190 umol/L (13-55)
[2023-04-12] MEDS: Lactulose 20 GM/30 ML SOLUTION PO (12:34)
--- NOTE | 2023-04-12 12:34 | ED.AMS ---
HPI - Altered Mental Status General Chief Complaint: Altered Mental Status Stated Complaint: AMS Time Seen by Provider: 04/12/23 12:22 Source: family ( daughter) and EMS Mode of arrival: EMS Limitations: physical limitation ( hepatic encephalopathy) History of Present Illness HPI narrative: 58-year-old male former alcohol drinker with alcoholic cirrhosis complicated by esophageal varices and ascites, with recurrent encephalopathy due to hyperammonemia, patient is on lactulose at home that seemingly not compliant with his lactulose especially in the last few days. Patient found by his family confused. as per family no fever or chills patient recently had paracentesis with full L of ascites was removed. No fever, no chills, no abdominal pain, no nausea, no vomiting. Related Data Home Medications Medication Instructions Recorded Confirmed atorvastatin 20 mg tablet 20 mg PO DAILY 06/29/20 03/26/23 insulin glargine-yfgn 100 unit/mL 66 unit subcut DAILY 09/09/22 03/26/23 (3 mL) subcutaneous pen (Semglee (insulin glargine-yfgn) Pen) gabapentin 300 mg capsule 300 mg PO TID 12/27/22 03/26/23 nadolol 20 mg tablet 20 mg PO DAILY 12/27/22 03/26/23 ferrous sulfate 325 mg (65 mg 325 mg PO DAILY 03/26/23 03/26/23 iron) tablet hydroxyzine HCl 50 mg tablet 50 mg PO BEDTIME PRN anxiety 03/26/23 03/26/23 lactulose 20 gram/30 mL oral 20 g PO TID 03/26/23 03/26/23 solution lidocaine 5 % topical patch 1 patch topical DAILY PRN Pain 03/26/23 03/26/23 menthol 5 % topical patch (Icy Hot 1 patch topical DAILY 03/26/23 03/26/23 (menthol)) mirtazapine 7.5 mg tablet 7.5 mg PO BEDTIME 03/26/23 03/26/23 omeprazole 20 mg capsule,delayed 20 mg PO DAILY@0630 03/26/23 03/26/23 release spironolactone 50 mg tablet 100 mg PO DAILY 03/26/23 03/26/23 furosemide 20 mg tablet 40 mg PO DAILY 04/12/23 spironolactone 50 mg tablet 50 mg PO BEDTIME 04/12/23 Previous Rx's Medication Instructions Recorded rifaximin 550 mg tablet (Xifaxan) 550 mg PO BID #60 tabs 10/04/22 Allergies Allergy/AdvReac Type Severity Reaction Status Date / Time codeine [CODEINE] Allergy Mild ITCHINESS, Verified 04/07/23 13:01 itching penicillin G Allergy Mild itching Verified 04/07/23 13:01 Review of Systems Review of Systems: All other systems are reviewed and are negative Constitutional: Reports as per HPI and Reports no additional constitutional complaints Eyes: Reports as per HPI and Reports no additional eye complaints Reports system reviewed and no additional complaints, except as documented Cardiovascular: Reports as per HPI and Reports no additional cardiovascular complaints Respiratory: Reports as per HPI and Reports no additional respiratory complaints Gastrointestinal: Reports as per HPI and Reports no additional gastrointestinal complaints Genitourinary: Reports no additional female genitourinary complaints Musculoskeletal: Reports no additional musculoskeletal complaints Skin/Breast: Reports system reviewed and no additional complaints, except as docu Psychiatric: Reports no additional psychiatric complaints Endocrine: Reports no additional endocrine complaints Hematologic/Lymphatic: Reports no additional hematologic/lymphatic complaints Allergic/Immunologic: Reports no additional allergic/immunologic complaints Reports system reviewed and no additional complaints, except as documented and Reports Abnormal speech present [facility] Past Medical History Medical History Chronic liver failure S/P abdominal paracentesis Black stools Normocytic anemia Abdominal ascites Chronic hyponatremia Cirrhosis of liver Varices, esophageal History of alcohol abuse Diabetes Elevated cholesterol Myocardial infarction HTN (hypertension) Hepatitis Cirrhosis Surgical History Hx of hand surgery History of PTCA History of esophagogastroduodenoscopy (EGD) H/O colonoscopy Social History Social History Household Members: None Housing: House Do you presently have visiting nurse or other home services: No Unable to assess alcohol history related to: Unknown Alcohol intake: former Patient Tobacco Use Status: Former Tobacco user Quit Date: 2013 Tobacco use type: Cigarette Smoked in Last 30 Days: No Second Hand Smoke Exposure: No Use of substances other than those prescribed or required for medical reasons: No Advance Directives: Yes Advance Directives on File: Yes Advance Directives Date on File: 09/13/22 service: No Current occupational status: disabled Physical Exam ED Vital Signs: Vital Signs - 24 hr 04/12/23 11:53 04/12/23 13:06 Temperature 97.8 F Pulse Rate 86 83 Respiratory Rate 16 14 Blood Pressure 134/74 Pulse Oximetry 100 99 Oxygen Delivery Method Room Air Room Air BMI result Body Mass Index 19.0 Vital signs have been reviewed and appear to be correct. Blood pressure elevated. Heart rate normal. Respiratory rate normal. Temperature normal. Oxygen saturation normal. Appearance: Alert. Disoriented and confused, No acute distress. Head: Normal external exam. Normocephalic. Atraumatic. No Kyle signs noted. No raccoon eyes noted Eyes: PERRLA. EOMI. Conjunctiva and sclera normal. Eyelids normal. ENT: TM's Normal. Pharynx normal. Uvula midline. Moist mucous membranes. No trismus noted. No drooling noted. No muffled voice noted. Neck: Normal inspection. Neck supple. FROM. No adenopathy. Thyroid Normal. No meningeal signs. No neck mass noted. CVS: Normal heart rate and rhythm. Heart sound normal. No murmurs noted. Pulses normal throughout. Respiratory: No respiratory distress. Painless inspiration. Breath sounds normal. No wheezes/rales/rhonchi noted. Chest nontender. No accessory muscle usage noted or decreased air movement noted. Abdomen: Soft and nontender. Bowel sounds normal in all 4 quadrants. No distention noted. No organomegaly noted. No visible injury noted. Back: No CVA tenderness. Full range of motion noted. Skin: Skin warm and dry. Normal skin color. Normal skin turgor. No rashes/lesions/lacerations noted. Extremities: No lower extremity edema. Extremities exhibit normal range of motion. Extremities nontender. Neuro: Cranial nerve exam: II-XII are grossly intact No motor deficit. No sensory deficit. Reflexes normal. Course Reevaluation(s) Reevaluation #1: acute hepatic encephalopathy due to hyperammonemia patient had a previous similar presentation due to hyperammonemia, will start lactulose p.o./ ND as tolerated in the ED and admit. Time: 13:27 Medications Administered Discontinued Medications Generic Name Dose Route Start Last Admin Trade Name Freq PRN Reason Stop Dose Admin Lactulose 20 gm 04/12/23 12:29 04/12/23 12:34 Lactulose 20 Gm/30 Ml Solution PO 04/12/23 12:30 20 gm ONCE ONE Administration Lactulose 200 gm 04/12/23 12:29 04/12/23 13:05 Lactulose 320 Gm/480 Ml Solution ND 04/12/23 12:30 200 gm ONCE ONE Administration Medical Decision Making Differential Diagnosis Differential Diagnoses: The differential diagnosis associated with the presentation includes ( Acute hepatic encephalopathy, severe anemia, electrolyte abnormality, SBP) Admission/Observation Consideration of admission/observation: Escalation of care including admission/observation considered Consult Healthcare Provider Management of the patient was discussed with: Hospitalist ( Dr. Roberts) Lab Data MDM Lab Attestation statement: I reviewed the patient's lab results. 04/12/23 12:07 04/12/23 12:07 Labs: Lab Results 04/12/23 Range/Units 12:07 WBC 6.2 (4.8-10.8) X10*3/uL RBC 4.21 L (4.60-5.80) X10*6/uL Hgb 12.9 L (14.0-18.0) g/dl Hct 35.9 L (42.0-52.0) % MCV 85.3 (80.0-98.0) fL MCH 30.6 (27.0-33.0) pg MCHC 35.9 (31.0-36.0) g/dl RDW 14.4 (11.0-16.0) % Plt Count 91 L (160-400) X10*3/uL MPV 11.0 (9.4-12.4) fL Immature Gran % (Auto) 0.3 (0.0-0.4) % Neut % (Auto) 74.1 H (45-73) % Lymph % (Auto) 13.0 L (20-40) % [place] % (Auto) 8.8 (2-11) % Eos % (Auto) 3.2 (0-4) % Baso % (Auto) 0.6 (0-2) % Lymph # (Auto) 0.8 L (1.2-4.9) X10*3/uL [place] # (Auto) 0.5 (0.1-1.2) X10*3/uL Eos # (Auto) 0.2 (0.0-0.4) X10*3/uL Baso # (Auto) 0.0 (0.0-0.2) X10*3/uL Abs Immat Gran (auto) 0.02 (0.00-0.03) X10*3/uL Absolute Neuts (auto) 4.6 (2.0-8.3) x10*3/uL Absolute Nucleated RBC 0.000 (0.0-0.012) X10*3/uL Nucleated RBC % (auto) 0.0 (0.0-0.2) /100WBC Sodium 132 L (135-145) mmol/L Potassium 4.5 (3.3-5.1) mmol/L Chloride 99 (96-108) mmol/L Carbon Dioxide 25 (22-29) mmol/L Anion Gap 13 (12-20) BUN 17 H (9-16) mg/dL Creatinine 1.52 H (0.5-1.4) mg/dL Estim Creat Clear Calc 41.3 Estimated GFR 47 Random Glucose 255 H (60-115) mg/dL Calcium 8.9 (8.4-10.2) mg/dL Total Bilirubin 1.6 H (0.0-1.0) mg/dL Direct Bilirubin 0.7 H (0.0-0.5) mg/dL AST 92 H (5-37) U/L ALT 47 H (0-40) U/L Alkaline Phosphatase 243 H (39-117) U/L Ammonia 190 H (13-55) umol/L Total Protein 7.4 (6.5-8.0) g/dL Albumin 2.7 L (3.5-5.0) g/dL Lipase 49 (8-78) U/L Chronic Conditions Patient?s care impacted by: Other ( liver cirrhosis, history of alcohol abuse.) Discharge Plan Discharge Clinical Impression: Acute hepatic encephalopathy Patient Disposition: Admitted As Inpatient
[2023-04-12 12:41] LABS: Alanine Aminotransferase 47 U/L (0-40); Albumin Level 2.7 g/dL (3.5-5.0); Alkaline Phosphatase 243 U/L (39-117); Anion Gap 13 (12-20); Aspartate Amino Transferase 92 U/L (5-37); Bilirubin Direct 0.7 mg/dL (0.0-0.5); Bilirubin Total 1.6 mg/dL (0.0-1.0); Blood Urea Nitrogen 17 mg/dL (9-16); Calcium 8.9 mg/dL (8.4-10.2); Carbon Dioxide 25 mmol/L (22-29); Chloride 99 mmol/L (96-108); Creatinine Clr Calc Pharmacy 41.3; Estimated Glomerular Filt Rate 47; Glucose Random 255 mg/dL (60-115); Lipase 49 U/L (8-78); Potassium 4.5 mmol/L (3.3-5.1); Sodium 132 mmol/L (135-145); Total Protein 7.4 g/dL (6.5-8.0)
[2023-04-12] MEDS: Lactulose 320 GM/480 ML SOLUTION 200 GM PR ×2 (13:05→17:16)
[2023-04-12 13:06] VITALS: PULSE 83; RESP 14; O2SAT 99
--- NOTE | 2023-04-12 13:37 | PC.NURSE ---
Late entry: Pt brought back from waiting room by ERROL Cote. This RN very familiar with patient and his presentation. Pt triaged and 20g IV placed in LFA, labs obtained. Pt remained agitated, attempting to get out of bed. Pt is unable to ambulate due to very unsteady gait. Pt is alert only to self, unable to provide location or . Pts family at bedside with patient. Lactulose given rectally via enema bottle. Pt tolerated fairly well with some agitation. Pt is now resting on stretcher, respirations even and unlabored, skin pwd, alert and oriented x1, family at bedside
[2023-04-12 14:11] VITALS: PULSE 86; RESP 16; O2SAT 97
--- NOTE | 2023-04-12 14:17 | PHA.MEDREC ---
Pharmacy Consult ? Medication Reconciliation Pharmacy has completed the medication reconciliation. Daughter Agatha confirmed meds.
--- NOTE | 2023-04-12 14:43 | P.HPHOSP_ITS ---
<Statement entered by Rob Shea MD - 04/15/23 07:56> the patient was seen and evaluated with JERI Quiroga. I agree with his note, assessment and plan with the following. In summary, A 58 years old with PMH of liver cirrhosis presenting with Encephalopathy w elevated ammonia level. Lactulose MN for now and PO once he tolerates PO reorientation Rest of evaluations by PA note. History of Present Illness Date of Service: 04/12/23 Attending physician on admission: Rob Shea Chief Complaint: Altered mental status Pt is a 58-year-old male with a PMH significant for?alcoholic cirrhosis complicated by varices, ascites, and recurrent encephalopathy, hepatitis C s/p treatment, insulin-dependent diabetes type 2, and CAD s/p stent who presents to the ED with altered mental status. Patient is currently obtunded and incapable of answering questions or following commands. HPI thus obtained from chart and provider review, and family who is at bedside. Family states patient was last seen in his normal state of health earlier this morning but became altered around 10:00. Mental status quickly and progressively declined. Patient was last admitted to the hospital with similar symptoms 2 weeks prior from 03/26- 03/29. Patient lives alone but is monitored with cameras by his family out of concern for medication compliance. Family says patient did well upon discharge, and has had his brother stay with him 30/12 for the past week to ensure he has been taking all of his home medications. Family also report patient has been on liver transplant list for a number of years now, and they request of MELD score, which is 19. Pt also with recurrent ascites requiring q2 week large volume paracentesis, last on 04/07/2023 which removed 4.2L. In the ED patient was afebrile and hemodynamically stable, satting 90 7% on RA. Labs were significant for stable anemia of 12.9/35.9, sodium 132, random glucose 255, bilirubin 1.6, AST 92, ALT 47, alk-phos 243, ammonia 190, and albumin 2.7. Pt was treated with lactulose 200 g pr. Pt will be admitted to the hospital for treatment of acute hepatic encephalopathy in the setting of decompensated alcoholic cirrhosis. Review of Systems 2 Review of Systems: Unable to obtain due to patient's mentation [facility] Medical History Chronic liver failure S/P abdominal paracentesis Black stools Normocytic anemia Abdominal ascites Chronic hyponatremia Cirrhosis of liver Varices, esophageal History of alcohol abuse Diabetes Elevated cholesterol Myocardial infarction HTN (hypertension) Hepatitis Cirrhosis Surgical History Hx of hand surgery History of PTCA History of esophagogastroduodenoscopy (EGD) H/O colonoscopy Social History Household Members: None Housing: House Do you presently have visiting nurse or other home services: No Unable to assess alcohol history related to: Unknown Alcohol intake: former Patient Tobacco Use Status: Former Tobacco user Quit Date: 2013 Tobacco use type: Cigarette Second Hand Smoke Exposure: No Advance Directives Date on File: 09/13/22 service: No Current occupational status: disabled Meds Allergies Allergy/AdvReac Type Severity Reaction Status Date / Time codeine [CODEINE] Allergy Mild ITCHINESS, Verified 04/07/23 13:01 itching penicillin G Allergy Mild itching Verified 04/07/23 13:01 Active Medications: Current Medications Acetaminophen (Acetaminophen 325 Mg Tablet) 650 mg PO Q6H PRN PRN Reason: Pain, Mild (Pain Scale 1-3) Atorvastatin Calcium (Atorvastatin Calcium 20 Mg Tablet) 20 mg PO DAILY [facility] Dextrose (Dextrose 50 % 25 Gm/50 Ml Syringe) 25 gm IVPUSH Q15M PRN; Protocol PRN Reason: per Hypoglycemia Standing Ord. Docusate Sodium (Docusate Sodium 100 Mg Capsule) 100 mg PO DAILY PRN PRN Reason: Constipation Enoxaparin Sodium (Enoxaparin Sodium 40 Mg/0.4 Ml Syringe) 40 mg SUBCUT Q24H [facility] Furosemide (Furosemide 40 Mg Tablet) 40 mg PO DAILY [facility]; Protocol Gabapentin (Gabapentin 300 Mg Capsule) 300 mg PO BEDTIME [facility] Glucose (Glucose Gel 15 Gm Gel..Gram.) 15 gm PO Q15M PRN; Protocol PRN Reason: per Hypoglycemia Standing Ord. Hydroxyzine HCl (Hydroxyzine Hcl 50 Mg Tablet) 50 mg PO BEDTIME PRN PRN Reason: anxiety Insulin Human Lispro (Insulin Lispro 100 Unit/Ml 3 Ml Vial) 0 unit SUBCUT QIDACHS [facility]; Protocol Mirtazapine (Mirtazapine 7.5 Mg Tablet) 7.5 mg PO BEDTIME [facility] Nadolol (Nadolol 20 Mg Tablet) 20 mg PO DAILY [facility]; Protocol Non-Formulary Medication (Ferrous Sulfate) 325 mg PO DAILY [facility] Omeprazole (Omeprazole 20 Mg Capsule.Dr) 20 mg PO DAILY@0630 [facility] Ondansetron HCl (Ondansetron Hcl 4 Mg/2 Ml Vial) 4 mg IVPUSH Q8H PRN PRN Reason: Nausea and Vomiting Rifaximin (Rifaximin 550 Mg Tablet) 550 mg PO BID [facility] Sodium Chloride (0.9 % Sodium Chloride Flush 3 Ml Syringe) 3 ml IVFLUSH QSHIFT [facility] Spironolactone (Spironolactone 25 Mg Tablet) 150 mg PO DAILY [facility]; Protocol Home Medications Medication Instructions Recorded Confirmed Last Taken Type atorvastatin 20 mg tablet 20 mg PO DAILY 06/29/20 04/12/23 04/11/23 History insulin glargine-yfgn 100 unit/mL 66 unit subcut DAILY 09/09/22 04/12/23 04/11/23 History (3 mL) subcutaneous pen (Semglee (insulin glargine-yfgn) Pen) gabapentin 300 mg capsule 300 mg PO BEDTIME 12/27/22 04/12/23 04/11/23 History nadolol 20 mg tablet 20 mg PO DAILY 12/27/22 04/12/23 04/11/23 History ferrous sulfate 325 mg (65 mg 325 mg PO DAILY 03/26/23 04/12/23 04/11/23 History iron) tablet hydroxyzine HCl 50 mg tablet 50 mg PO BEDTIME PRN anxiety 03/26/23 04/12/23 Unknown History lactulose 20 gram/30 mL oral 20 g PO TID 03/26/23 04/12/23 04/11/23 History solution lidocaine 5 % topical patch 1 patch topical DAILY PRN Pain 03/26/23 04/12/23 Unknown History menthol 5 % topical patch (Icy Hot 1 patch topical DAILY 03/26/23 04/12/23 04/11/23 History (menthol)) mirtazapine 7.5 mg tablet 7.5 mg PO BEDTIME 03/26/23 04/12/23 04/11/23 History omeprazole 20 mg capsule,delayed 20 mg PO DAILY@0630 03/26/23 04/12/23 04/11/23 History release spironolactone 50 mg tablet 150 mg PO DAILY 03/26/23 04/12/23 04/11/23 History furosemide 20 mg tablet 40 mg PO DAILY 04/12/23 04/12/23 04/11/23 History Physical Exam 2 Vital Signs and Narrative: Vital Signs: Last Vital Signs Temp 97.8 F 04/12/23 11:53 Pulse 86 04/12/23 14:11 Resp 16 04/12/23 14:11 BP 134/74 04/12/23 11:53 Pulse Ox 97 04/12/23 14:11 O2 Del Method Room Air 04/12/23 14:11 BMI result Body Mass Index 19.0 General: Pt obtunded, incapable of answering questions or following commands, in no acute distress Resp: CTA bilaterally CVS: S1, S2, RRR GI: +BS, NT, abdomen soft, no distention Skin: No rash Neuro: Cranial nerves II-XII grossly intact bilaterally. Motor grossly intact bilaterally Extremities: No edema Results Labs 04/12/23 12:07 04/12/23 12:07 Labs: Laboratory Results - last 24 hr 04/12/23 12:07 MCV 85.3 MCH 30.6 MCHC 35.9 RDW 14.4 Plt Count 91 L MPV 11.0 Immature Gran % (Auto) 0.3 Neut % (Auto) 74.1 H Lymph % (Auto) 13.0 L Maury % (Auto) 8.8 Eos % (Auto) 3.2 Baso % (Auto) 0.6 Lymph # (Auto) 0.8 L Maury # (Auto) 0.5 Eos # (Auto) 0.2 Baso # (Auto) 0.0 Abs Immat Gran (auto) 0.02 Absolute Neuts (auto) 4.6 Absolute Nucleated RBC 0.000 Nucleated RBC % (auto) 0.0 Anion Gap 13 Estim Creat Clear Calc 41.3 Estimated GFR 47 Random Glucose 255 H Calcium 8.9 Total Bilirubin 1.6 H Direct Bilirubin 0.7 H AST 92 H ALT 47 H Alkaline Phosphatase 243 H Ammonia 190 H Total Protein 7.4 Albumin 2.7 L Lipase 49 Assessment and Plan (1) Acute hepatic encephalopathy: Status: Acute Plan Pt is a 58-year-old male with a PMH significant for?alcoholic cirrhosis complicated by varices, ascites, and recurrent encephalopathy, hepatitis C s/p treatment, insulin-dependent diabetes type 2, and CAD s/p stent who presents to the ED with altered mental status. Pt will be admitted to the hospital for treatment of acute hepatic encephalopathy in the setting of decompensated alcoholic cirrhosis. Acute hepatic encephalopathy Patient with AMS, confusion, obtunded since this morning, patient with alcoholic cirrhosis, ammonia 190 Pt's brother has been staying with him the past week to ensure medication noncompliance Pt recevied lactulose 200 g pr in ED Will give additional lactulose 200 g pr until improvement in mentation, then switch to Pp.o. Continue rifaximin 550 mg p.o. b.i.d., furosemide and spironolactone GI consult for possible medication changes Patient will be made NPO, consider formal speech evaluation for tomorrow MELD score 19 Monitor mentation CAROL ANN Creatinine 1.52 Will give gentle hydration HTN Continue home meds CAD/HLD Continue statin GERD Continue PPI Insulin-dependent diabetes type [address] on sliding scale insulin Will hold Lantus while NPO Diabetic diet once no longer NPO Mood disorder Continue mirtazapine Full Code Attending:?Dr. Shea DVT Prophylaxis: Lovenox Pt will require a hospitalization of at least two nights for treatment of?acute hepatic encephalopathy in the setting of decompensated alcoholic cirrhosis despite medication compliance. Quality Stroke Does the patient have a stroke diagnosis?: No VTE Prior VTE?: No VTE Risk Level:: Medical - moderate - high VTE Device Contraindication: Treatment Not Indicated VTE Drug Contraindication: N/A - Med Ordered
[2023-04-12 14:54] VITALS: BP 142/81; PULSE 81; RESP 13; TEMP 36.6; O2SAT 99
[2023-04-12] MEDS: 0.9 % Sodium Chloride 1,000 ML 75 ML IVCONT (15:31)
[2023-04-12] MEDS: Enoxaparin Sodium 40 MG/0.4 ML SYRINGE SUBCUT (15:32)
[2023-04-12 16:20] VITALS: BMI 18.4
[2023-04-12 16:31] VITALS: BP 134/68; PULSE 80; RESP 16; TEMP 36; O2SAT 100
[2023-04-12 16:31] LABS: Glucose, Whole Blood 210 mg/dL (60-115)
[2023-04-12] MEDS: Insulin Lispro 100 UNIT/ML 3 ML VIAL SUBCUT (16:34)
--- NOTE | 2023-04-12 16:45 | PC.NURSE ---
Pt admitted from the ER to 363 no family at bedside . Pt obtunded admission assessment retrieved from chart .
--- NOTE | 2023-04-12 17:16 | PC.NURSE ---
Pt given lactulose enema as per orders , tolerated well .
[2023-04-12 20:00] VITALS: BP 110/56; PULSE 81; RESP 18; TEMP 36.1; O2SAT 99
[2023-04-12 20:13] LABS: Glucose, Whole Blood 132 mg/dL (60-115)
[2023-04-13 03:24] VITALS: BP 109/54; PULSE 84; RESP 18; TEMP 36.1; O2SAT 98
[2023-04-13 05:37] LABS: Ammonia 56 umol/L (13-55)
[2023-04-13 05:46] LABS: Alanine Aminotransferase 39 U/L (0-40); Albumin Level 2.5 g/dL (3.5-5.0); Alkaline Phosphatase 215 U/L (39-117); Anion Gap 13 (12-20); Aspartate Amino Transferase 69 U/L (5-37); Bilirubin Total 2.5 mg/dL (0.0-1.0); Blood Urea Nitrogen 15 mg/dL (9-16); Calcium 8.6 mg/dL (8.4-10.2); Carbon Dioxide 23 mmol/L (22-29); Chloride 104 mmol/L (96-108); Creatinine Clr Calc Pharmacy 60.5; Estimated Glomerular Filt Rate > 60; Glucose Random 141 mg/dL (60-115); Potassium 3.7 mmol/L (3.3-5.1); Sodium 136 mmol/L (135-145); Total Protein 6.5 g/dL (6.5-8.0)
[2023-04-13] MEDS: 0.9 % Sodium Chloride 1,000 ML 75 ML IVCONT (05:46)
[2023-04-13] MEDS: Omeprazole 20 MG CAPSULE.DR PO (05:46)
[2023-04-13 07:20] VITALS: BP 123/65; PULSE 88; RESP 12; TEMP 36.8; O2SAT 98
[2023-04-13 07:20] LABS: Glucose, Whole Blood 134 mg/dL (60-115)
[2023-04-13] MEDS: Spironolactone 25 MG TABLET 150 MG PO (08:29)
[2023-04-13] MEDS: rifAXIMin 550 MG TABLET PO ×2 (08:32→21:01)
[2023-04-13] MEDS: Furosemide 40 MG TABLET PO (08:33)
[2023-04-13] MEDS: Ferrous Sulfate 324 MG TABLET.DR PO (08:33)
[2023-04-13] MEDS: nadoloL 20 MG TABLET PO (08:33)
[2023-04-13] MEDS: Atorvastatin Calcium 20 MG TABLET PO (08:33)
--- NOTE | 2023-04-13 09:32 | MHC.CM.PN ---
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
[2023-04-13] MEDS: Lactulose 20 GM/30 ML SOLUTION PO ×3 (09:45→21:00)
[2023-04-13 09:47] LABS: Estimated Average Glucose 189 mg/dL; Hemoglobin A1c % 8.2 % (<6.0)
--- NOTE | 2023-04-13 10:41 | PM.GICN ---
History of Present Illness Data of Consult Service Date: 04/13/23 Requesting physician: Dillan Nicole Primary Care Provider: JERI Rodriguez HPI Reason for consult: AMS, ammonia 190 despite med compliance 58 YM with alcoholic cirrhosis complicated by varices, ascites, and recurrent encephalopathy, hepatitis C s/p treatment, insulin-dependent diabetes type 2, and CAD s/p stent seen at [facility] ED on 04/12/23 with altered mental status. Patient is currently obtunded and incapable of answering questions or following commands. Family stated patient was last seen in his normal state of health yesterday morning but became altered around 10:00 am. Mental status quickly and progressively declined. Patient was last admitted to the hospital with similar symptoms 2 weeks prior from 03/26-03/29. Patient lives alone but is monitored with cameras by his family out of concern for medication compliance. Family says patient did well upon discharge, and has had his brother stay with him 24/ for the past week to ensure he has been taking all of his home medications. Patient cirrhosis has been complicated by varices, ascites and encephalopathy.? Pt is more alert today and history obtained from the patient and his son who was at his bedside, Pt complains of upper abdominal pain - related to abdominal distension and denies fever, chills, nausea or vomiting, black stools or blood in the stools. Pt is followed by Dr Zuluaga for cirrhosis from previous EtOH(currently sober) and previous Hep C, s/p successful treatment. He is followed at [facility] as well. In the emergency department, ammonia level was found to be 190 and improved to 56 today Family also report patient has been on liver transplant list for a number of years now, and they request of MELD Na score, which is 14. Pt also with recurrent ascites requiring q 2 week large volume paracentesis, last on 04/07/2023 which removed 4.2L. Ascitic fluid analysis was negative for SBP Pt was treated with lactulose enema and admitted for treatment of acute hepatic encephalopathy. Review of Systems Review of Systems: Yes all other systems are reviewed and are negative Neurologic: Reports confusion Psychiatric: Psychiatric: Reports confusion PMFSH Past Medical History Medical History Chronic liver failure S/P abdominal paracentesis Black stools Normocytic anemia Abdominal ascites Chronic hyponatremia Cirrhosis of liver Varices, esophageal History of alcohol abuse Diabetes Elevated cholesterol Myocardial infarction HTN (hypertension) Hepatitis Cirrhosis Surgical History Surgical History Hx of hand surgery History of PTCA History of esophagogastroduodenoscopy (EGD) H/O colonoscopy Social History Social History Household Members: None Housing: House Do you presently have visiting nurse or other home services: No Unable to assess alcohol history related to: Unable to respond Alcohol intake: former Patient Tobacco Use Status: Former Tobacco user Quit Date: 2013 Tobacco use type: Cigarette Smoked in Last 30 Days: No Second Hand Smoke Exposure: No Use of substances other than those prescribed or required for medical reasons: Unknown Advance Directives: Yes Advance Directives on File: Yes Advance Directives Date on File: 09/13/22 Do you have thoughts of harming others: None Do you have a plan to hurt others: No Plan Recently lost weight without trying: No Nutrition Risks: No Nutritional Risk Poor oral hygiene: No service: No Current occupational status: disabled Meds Allergies Allergy/AdvReac Type Severity Reaction Status Date / Time codeine [CODEINE] Allergy Mild ITCHINESS, Verified 04/07/23 13:01 itching penicillin G Allergy Mild itching Verified 04/07/23 13:01 Active Medications: Current Medications Acetaminophen (Acetaminophen 325 Mg Tablet) 650 mg PO Q6H PRN PRN Reason: Pain, Mild (Pain Scale 1-3) Atorvastatin Calcium (Atorvastatin Calcium 20 Mg Tablet) 20 mg PO DAILY [facility] Last Admin: 04/13/23 08:33 Dose: 20 mg Dextrose (Dextrose 50 % 25 Gm/50 Ml Syringe) 25 gm IVPUSH Q15M PRN; Protocol PRN Reason: per Hypoglycemia Standing Ord. Docusate Sodium (Docusate Sodium 100 Mg Capsule) 100 mg PO DAILY PRN PRN Reason: Constipation Enoxaparin Sodium (Enoxaparin Sodium 40 Mg/0.4 Ml Syringe) 40 mg SUBCUT Q24H [facility] Last Admin: 04/12/23 15:32 Dose: 40 mg Ferrous Sulfate (Ferrous Sulfate 324 Mg Tablet.Dr) 324 mg PO DAILY [facility] Last Admin: 04/13/23 08:33 Dose: 324 mg Furosemide (Furosemide 40 Mg Tablet) 40 mg PO DAILY [facility]; Protocol Last Admin: 04/13/23 08:33 Dose: 40 mg Gabapentin (Gabapentin 300 Mg Capsule) 300 mg PO BEDTIME [facility] Last Admin: 04/12/23 21:48 Dose: Not Given Glucose (Glucose Gel 15 Gm Gel..Gram.) 15 gm PO Q15M PRN; Protocol PRN Reason: per Hypoglycemia Standing Ord. Hydroxyzine HCl (Hydroxyzine Hcl 50 Mg Tablet) 50 mg PO BEDTIME PRN PRN Reason: anxiety Insulin Human Lispro (Insulin Lispro 100 Unit/Ml 3 Ml Vial) 0 unit SUBCUT QIDACHS [facility]; Protocol Last Admin: 04/13/23 08:29 Dose: Not Given Lactulose (Lactulose 20 Gm/30 Ml Solution) 20 gm PO TID [facility] Last Admin: 04/13/23 09:45 Dose: 20 gm Mirtazapine (Mirtazapine 7.5 Mg Tablet) 7.5 mg PO BEDTIME [facility] Last Admin: 04/12/23 21:48 Dose: Not Given Nadolol (Nadolol 20 Mg Tablet) 20 mg PO DAILY [facility]; Protocol Last Admin: 04/13/23 08:33 Dose: 20 mg Omeprazole (Omeprazole 20 Mg Capsule.Dr) 20 mg PO DAILY@0630 [facility] Last Admin: 04/13/23 05:46 Dose: 20 mg Ondansetron HCl (Ondansetron Hcl 4 Mg/2 Ml Vial) 4 mg IVPUSH Q8H PRN PRN Reason: Nausea and Vomiting Rifaximin (Rifaximin 550 Mg Tablet) 550 mg PO BID [facility] Last Admin: 04/13/23 08:32 Dose: 550 mg Sodium Chloride (0.9 % Sodium Chloride Flush 3 Ml Syringe) [facility] Last Admin: 04/13/23 08:33 Dose: Not Given Spironolactone (Spironolactone 25 Mg Tablet) 150 mg PO DAILY [facility]; Protocol Last Admin: 04/13/23 08:29 Dose: 150 mg Home Medications Medication Instructions Recorded Confirmed Last Taken Type atorvastatin 20 mg tablet 20 mg PO DAILY 06/29/20 04/12/23 04/11/23 History insulin glargine-yfgn 100 unit/mL 66 unit subcut DAILY 09/09/22 04/12/23 04/11/23 History (3 mL) subcutaneous pen (Semglee (insulin glargine-yfgn) Pen) gabapentin 300 mg capsule 300 mg PO BEDTIME 12/27/22 04/12/23 04/11/23 History nadolol 20 mg tablet 20 mg PO DAILY 12/27/22 04/12/23 04/11/23 History ferrous sulfate 325 mg (65 mg 325 mg PO DAILY 03/26/23 04/12/23 04/11/23 History iron) tablet hydroxyzine HCl 50 mg tablet 50 mg PO BEDTIME PRN anxiety 03/26/23 04/12/23 Unknown History lactulose 20 gram/30 mL oral 20 g PO TID 03/26/23 04/12/23 04/11/23 History solution lidocaine 5 % topical patch 1 patch topical DAILY PRN Pain 03/26/23 04/12/23 Unknown History menthol 5 % topical patch (Icy Hot 1 patch topical DAILY 03/26/23 04/12/23 04/11/23 History (menthol)) mirtazapine 7.5 mg tablet 7.5 mg PO BEDTIME 03/26/23 04/12/23 04/11/23 History omeprazole 20 mg capsule,delayed 20 mg PO DAILY@0630 03/26/23 04/12/23 04/11/23 History release spironolactone 50 mg tablet 150 mg PO DAILY 03/26/23 04/12/23 04/11/23 History furosemide 20 mg tablet 40 mg PO DAILY 04/12/23 04/12/23 04/11/23 History Physical Exam Vital Signs: Vital Signs: Last Vital Signs Temp 98.3 F 04/13/23 07:20 Pulse 88 04/13/23 07:20 Resp 12 04/13/23 07:20 BP 123/65 04/13/23 07:20 Pulse Ox 98 04/13/23 07:20 O2 Del Method Room Air 04/13/23 07:20 BMI result Body Mass Index 18.4 Const: General: no acute distress, confusion and ill appearing Nutritional Appearance: underweight Orientation/consciousness: confusion HEENT: Head: Yes normal to inspection Ears: hearing grossly normal bilaterally Mouth: Normal oral and palatal mucosa present Eyes: Sclerae: sclerae normal Pupils: Equal, round and reactive pupils present Neck: Neck: Yes normal visual inspection Chest: Chest palpation & inspection: normal inspection of the chest Resp: Effort & Inspection: normal respiratory effort Auscultation: clear to auscultation bilaterally Cardio: Palpation: normal PMI Rate: regular rate Rhythm: regular rhythm Heart sounds: S1 normal heart sound present, S2 normal heart sound present and no murmurs GI: Inspection: Yes distended and Yes visible herniation (umblical hernia) Palpation (GI): Soft to palpation, nontender and No hepatosplenomegaly present Auscultation: normal bowel sounds Rectal Exam - Male: Yes deferred Skin: General skin exam: no rashes or lesions noted Neuro: General: gait normal, moves all extremities and confusion Cranial nerves: Yes Equal, round and reactive pupils present Extrem: General: Yes other (No flap) Psych: Appearance: grossly normal Mental Status: mental status grossly normal Results Labs 04/12/23 12:07 04/13/23 05:19 Labs: Short CBC 04/12/23 Range/Units 12:07 WBC 6.2 (4.8-10.8) X10*3/uL Hgb 12.9 L (14.0-18.0) g/dl Hct 35.9 L (42.0-52.0) % Plt Count 91 L (160-400) X10*3/uL BMP 04/12/23 04/13/23 12:07 05:19 Sodium 132 L 136 Potassium 4.5 3.7 Chloride 99 104 Carbon Dioxide 25 23 BUN 17 H 15 Creatinine 1.52 H 1.01 Calcium 8.9 8.6 Liver Function 04/12/23 04/13/23 Range/Units 12:07 05:19 Total Bilirubin 1.6 H 2.5 H (0.0-1.0) mg/dL Direct Bilirubin 0.7 H (0.0-0.5) mg/dL AST 92 H 69 H (5-37) U/L ALT 47 H 39 (0-40) U/L Alkaline Phosphatase 243 H 215 H (39-117) U/L Albumin 2.7 L 2.5 L (3.5-5.0) g/dL Assessment and Plan (1) Acute hepatic encephalopathy: Status: Acute (2) Cirrhosis of liver with ascites: Status: Acute Plan 58 YM with ESLD (MELD Na score is 14) due to past ETOH abuse and hepatitis-C status post treatment complicated by portal hypertension, esophageal varices, thrombocytopenia, ascites and hepatic encephalopathy admitted on 04/12/23 with a sudden change in mental status and elevated ammonia.? Patient reports compliance with lactulose and denies taking any sedatives. Etiology of hepatic encephalopathy is unclear - possibly related to dehydration since pt had mild elevation of BUN and creatinine on admission. Pt is followed by Dr Zuluaga for cirrhosis from previous EtOH(currently sober) and previous Hep C, s/p successful treatment. He is followed at [facility] as well. In the emergency department, ammonia level was found to be 190 and improved to 56 today RECOMMENDATIONS: 1. Agree with Lactulose and Rifaximin, PPI and IV antibiotics. 2. Monitor labs and ammonia levels 3. Consider lowering dose of spironolactone to [address] Zuluaga in the am Procedures Date of Service Date of Service: 04/13/23
[2023-04-13 11:15] LABS: Glucose, Whole Blood 182 mg/dL (60-115)
--- NOTE | 2023-04-13 11:30 | HO.PM.IMPN ---
Subjective Subjective Date of Service: 04/13/23 Interval History: Seen and evaluated this morning more alert and interactive this morning still confused though having bowel movements Review of Systems Review of Systems: Yes all other systems are reviewed and are negative Physical Exam Vital Signs: Vital Signs: Last Vital Signs Temp 98.3 F 04/13/23 07:20 Pulse 88 04/13/23 07:20 Resp 12 04/13/23 07:20 BP 123/65 04/13/23 07:20 Pulse Ox 98 04/13/23 07:20 O2 Del Method Room Air 04/13/23 07:20 BMI result Body Mass Index 18.4 Const: Other: Constitutional : Awake, interactive, not in distress Neck : Normal inspection, Supple Cardiovascular : RRR, no JVP, no lower extremity edema Respiratory : good bilateral air entry, no crackles, wheezes or rhonchi Gastrointestinal: soft, lax, Normal bowel sounds, Non tender Skin : Warm, Dry Neurological : Alert & disoriented x3, No focal deficit Objective Data Active Medications Acetaminophen (Acetaminophen 325 Mg Tablet) 650 mg PO Q6H PRN PRN Reason: Pain, Mild (Pain Scale 1-3) Atorvastatin Calcium (Atorvastatin Calcium 20 Mg Tablet) 20 mg PO DAILY [facility] [place] Last Admin: 04/13/23 08:33 Dose: 20 mg Documented By: SCOT Dextrose (Dextrose 50 % 25 Gm/50 Ml Syringe) 25 gm IVPUSH Q15M PRN; Protocol PRN Reason: per Hypoglycemia Standing Ord. Docusate Sodium (Docusate Sodium 100 Mg Capsule) 100 mg PO DAILY PRN PRN Reason: Constipation Enoxaparin Sodium (Enoxaparin Sodium 40 Mg/0.4 Ml Syringe) 40 mg SUBCUT Q24H [facility] [place] Last Admin: 04/12/23 15:32 Dose: 40 mg Documented By: CRYSTAL Ferrous Sulfate (Ferrous Sulfate 324 Mg Tablet.) 324 mg PO DAILY [facility] [place] Last Admin: 04/13/23 08:33 Dose: 324 mg Documented By: SCOT Furosemide (Furosemide 40 Mg Tablet) 40 mg PO DAILY [facility] [place]; Protocol Last Admin: 04/13/23 08:33 Dose: 40 mg Documented By: SCOT Gabapentin (Gabapentin 300 Mg Capsule) 300 mg PO BEDTIME [facility] [place] Last Admin: 04/12/23 21:48 Dose: Not Given Documented By: CHARMAINE Non-Admin Reason: NPO Glucose (Glucose Gel 15 Gm Gel..Gram.) 15 gm PO Q15M PRN; Protocol PRN Reason: per Hypoglycemia Standing Ord. Hydroxyzine HCl (Hydroxyzine Hcl 50 Mg Tablet) 50 mg PO BEDTIME PRN PRN Reason: anxiety Insulin Human Lispro (Insulin Lispro 100 Unit/Ml 3 Ml Vial) 0 unit SUBCUT QIDACHS [facility] [place]; Protocol Last Admin: 04/13/23 08:29 Dose: Not Given Documented By: SCOT Non-Admin Reason: No Insulin Coverage Lactulose (Lactulose 20 Gm/30 Ml Solution) 20 gm PO TID [facility] [place] Last Admin: 04/13/23 09:45 Dose: 20 gm Documented By: SCOT Mirtazapine (Mirtazapine 7.5 Mg Tablet) 7.5 mg PO BEDTIME [facility] [place] Last Admin: 04/12/23 21:48 Dose: Not Given Documented By: CHARMAINE Non-Admin Reason: NPO Nadolol (Nadolol 20 Mg Tablet) 20 mg PO DAILY [facility] [place]; Protocol Last Admin: 04/13/23 08:33 Dose: 20 mg Documented By: SCOT Omeprazole (Omeprazole 20 Mg Capsule.Dr) 20 mg PO DAILY@0630 [facility] [place] Last Admin: 04/13/23 05:46 Dose: 20 mg Documented By: HANNAH Ondansetron HCl (Ondansetron Hcl 4 Mg/2 Ml Vial) 4 mg IVPUSH Q8H PRN PRN Reason: Nausea and Vomiting Rifaximin (Rifaximin 550 Mg Tablet) 550 mg PO BID [facility] [place] Last Admin: 04/13/23 08:32 Dose: 550 mg Documented By: SCOT Sodium Chloride (0.9 % Sodium Chloride Flush 3 Ml Syringe) 3 ml IVFLUSH QSHIFT [facility] [place] Last Admin: 04/13/23 08:33 Dose: Not Given Documented By: SCOT Non-Admin Reason: IV Running Spironolactone (Spironolactone 25 Mg Tablet) 150 mg PO DAILY [facility] [place]; Protocol Last Admin: 04/13/23 08:29 Dose: 150 mg Documented By: SCOT Labs 04/12/23 12:07 04/13/23 05:19 Labs: Laboratory Results - last 24 hr 04/12/23 04/12/23 04/12/23 12:07 16:25 20:05 Anion Gap 13 Estim Creat Clear Calc 41.3 Estimated GFR 47 POC Glucose 210 H 132 H Random Glucose 255 H Estimat Average Glucose 189 Hemoglobin A1c % 8.2 H Calcium 8.9 Total Bilirubin 1.6 H Direct Bilirubin 0.7 H AST 92 H ALT 47 H Alkaline Phosphatase 243 H Ammonia Total Protein 7.4 Albumin 2.7 L Lipase 49 04/13/23 04/13/23 04/13/23 05:19 07:16 11:11 Anion Gap 13 Estim Creat Clear Calc 60.5 Estimated GFR > 60 POC Glucose 134 H 182 H Random Glucose 141 H Estimat Average Glucose Hemoglobin A1c % Calcium 8.6 Total Bilirubin 2.5 H Direct Bilirubin AST 69 H ALT 39 Alkaline Phosphatase 215 H Ammonia 56 H Total Protein 6.5 Albumin 2.5 L Lipase Assessment and Plan (1) Acute hepatic encephalopathy: Status: Acute Plan Pt is a 58-year-old male with a PMH significant for?alcoholic cirrhosis complicated by varices, ascites, and recurrent encephalopathy, hepatitis C s/p treatment, insulin-dependent diabetes type 2, and CAD s/p stent who presents to the ED with altered mental status. Pt will be admitted to the hospital for treatment of acute hepatic encephalopathy in the setting of decompensated alcoholic cirrhosis. Acute hepatic encephalopathy improving lactulose 200 g OR twice with good response Start home dose Lactulose Continue rifaximin 550 mg p.o. b.i.d., furosemide and spironolactone GI consult Monitor mentation Moderate malnutrition add Ensure CAROL ANN resolved, DC IVF HTN Continue home meds CAD/HLD Continue statin GERD Continue PPI Insulin-dependent diabetes type 2 sliding scale insulin hold Lantus for now, might need lower doses when he goes home Diabetic diet once no longer NPO Mood disorder Continue mirtazapine Full Code DVT Prophylaxis: Lovenox Pt will require a hospitalization overnight for treatment of?acute hepatic encephalopathy in the setting of decompensated alcoholic cirrhosis despite medication compliance. Quality Stroke Does the patient have a stroke diagnosis?: No VTE Prior VTE?: No VTE Risk Level:: Medical - moderate - high VTE Device Contraindication: Treatment Not Indicated VTE Drug Contraindication: N/A - Med Ordered
[2023-04-13] MEDS: Insulin Lispro 100 UNIT/ML 3 ML VIAL SUBCUT ×3 (12:34→20:59)
[2023-04-13] MEDS: Enoxaparin Sodium 40 MG/0.4 ML SYRINGE SUBCUT (15:07)
[2023-04-13] MEDS: 0.9 % Sodium Chloride Flush 3 ML SYRINGE IVFLUSH ×2 (15:07→21:00)
[2023-04-13 15:48] VITALS: BP 121/72; PULSE 87; RESP 19; TEMP 36.3; O2SAT 98
[2023-04-13 16:41] LABS: Glucose, Whole Blood 290 mg/dL (60-115)
[2023-04-13 19:35] VITALS: BP 120/71; PULSE 87; RESP 18; TEMP 33.2; O2SAT 97
[2023-04-13 20:03] LABS: Glucose, Whole Blood 245 mg/dL (60-115)
[2023-04-13] MEDS: Mirtazapine 7.5 MG TABLET PO (21:01)
[2023-04-13] MEDS: Gabapentin 300 MG CAPSULE PO (21:01)
[2023-04-14 02:53] VITALS: BP 113/71; PULSE 84; RESP 18; TEMP 36.6; O2SAT 99
[2023-04-14] MEDS: Omeprazole 20 MG CAPSULE.DR PO (06:11)
[2023-04-14 06:19] LABS: Ammonia 41 umol/L (13-55)
[2023-04-14 06:27] LABS: Alanine Aminotransferase 38 U/L (0-40); Albumin Level 2.3 g/dL (3.5-5.0); Alkaline Phosphatase 200 U/L (39-117); Anion Gap 10 (12-20); Aspartate Amino Transferase 68 U/L (5-37); Bilirubin Total 1.7 mg/dL (0.0-1.0); Blood Urea Nitrogen 15 mg/dL (9-16); Calcium 8.5 mg/dL (8.4-10.2); Carbon Dioxide 26 mmol/L (22-29); Chloride 102 mmol/L (96-108); Creatinine Clr Calc Pharmacy 47.3; Estimated Glomerular Filt Rate 57; Glucose Random 185 mg/dL (60-115); Potassium 3.7 mmol/L (3.3-5.1); Sodium 134 mmol/L (135-145); Total Protein 6.3 g/dL (6.5-8.0)
[2023-04-14 07:18] LABS: Glucose, Whole Blood 162 mg/dL (60-115)
[2023-04-14 07:29] VITALS: BP 98/66; PULSE 80; RESP 12; TEMP 36.9; O2SAT 96
[2023-04-14] MEDS: Furosemide 40 MG TABLET PO (07:38)
[2023-04-14] MEDS: Atorvastatin Calcium 20 MG TABLET PO (07:38)
[2023-04-14] MEDS: Spironolactone 25 MG TABLET 150 MG PO (07:38)
[2023-04-14] MEDS: Ferrous Sulfate 324 MG TABLET.DR PO (07:38)
[2023-04-14] MEDS: Insulin Lispro 100 UNIT/ML 3 ML VIAL SUBCUT ×2 (07:38→11:27)
[2023-04-14] MEDS: rifAXIMin 550 MG TABLET PO (07:38)
[2023-04-14] MEDS: Lactulose 20 GM/30 ML SOLUTION PO (07:39)
[2023-04-14] MEDS: 0.9 % Sodium Chloride Flush 3 ML SYRINGE IVFLUSH (07:48)
--- NOTE | 2023-04-14 10:26 | P.DS_ITS ---
DS: Providers Provider Date of Service: 04/14/23 Date of admission: 04/12/23 14:26 Primary care physician: JERI Rodriguez Consults: 04/12/23 14:40 Consult to Gastroenterology Routine Consulting Provider: John Ferguson Reason for consultation: AMS, ammonia 190 despite med compliance DS: Diagnosis Discharge Diagnosis (1) Acute hepatic encephalopathy: Status: Acute (2) Cirrhosis of liver with ascites: Status: Acute DS: Summary Hospital Course Hospital Course: History of presenting illness: Date of Service: 04/12/23 Attending physician on admission: Rob Shea Chief Complaint: Altered mental status Pt is a 58-year-old male with a PMH significant for?alcoholic cirrhosis complicated by varices, ascites, and recurrent encephalopathy, hepatitis C s/p treatment, insulin-dependent diabetes type 2, and CAD s/p stent who presents to the ED with altered mental status. Patient is currently obtunded and incapable of answering questions or following commands. HPI thus obtained from chart and provider review, and family who is at bedside. Family states patient was last seen in his normal state of health earlier this morning but became altered around 10:00. Mental status quickly and progressively declined. Patient was last admitted to the hospital with similar symptoms 2 weeks prior from 03/26- 03/29. Patient lives alone but is monitored with cameras by his family out of concern for medication compliance. Family says patient did well upon discharge, and has had his brother stay with him 30/12 for the past week to ensure he has been taking all of his home medications. Family also report patient has been on liver transplant list for a number of years now, and they request of MELD score, which is 19. Pt also with recurrent ascites requiring q2 week large volume paracentesis, last on 04/07/2023 which removed 4.2L. In the ED patient was afebrile and hemodynamically stable, satting 90 7% on RA. Labs were significant for stable anemia of 12.9/35.9, sodium 132, random glucose 255, bilirubin 1.6, AST 92, ALT 47, alk-phos 243, ammonia 190, and albumin 2.7. Pt was treated with lactulose 200 g pr. Pt will be admitted to the hospital for treatment of acute hepatic encephalopathy in the setting of decompensated alcoholic cirrhosis. Hospital course: 58-year-old male with a PMH significant for?alcoholic cirrhosis complicated by varices, ascites, and recurrent encephalopathy, hepatitis C s/p treatment, insulin-dependent diabetes type 2, and CAD s/p stent who presents to the ED with altered mental status. Pt will be admitted to the hospital for treatment of acute hepatic encephalopathy in the setting of decompensated alcoholic cirrhosis. Acute hepatic encephalopathy Pt admitted to the hospital for treatment of acute hepatic encephalopathy in the setting of decompensated alcoholic cirrhosis, treated with lactulose 200 g MT twice with good response, and subsequently placed on home dose Lactulose and rifaximin 550 mg p.o. b.i.d., confusion resolved, restarted furosemide and spironolactone, seen by Dr. Ferguson from Gastroenterology she recommend to reduce dose of spironolactone 200 mg, since patient is awake alert tolerating diet he is being discharged home to have close outpatient follow-up with Dr. Zuluaga recommend compliance with all home medications Moderate malnutrition recommend high-protein diet and Ensure CAROL ANN treated with IV fluids creatinine returned to baseline likely due to diuretics will reduce dose of Aldactone 100 mg daily HTN soft blood pressure , patient asymptomatic CAD/HLD Continue statin GERD Continue PPI Insulin-dependent diabetes type 2 continue Lantus home dose Mood disorder Continue mirtazapine Time Attestation Discharge coordination time: Greater than 30 minutes Quality: Safe Use of Opioids Does Pt have an Active Cancer Diagnosis on the Problem List?: No Quality: Stroke Does the patient have a stroke diagnosis?: No Physical Exam Vital Signs: Vital Signs: Last Vital Signs Temp 98.5 F 04/14/23 07:29 Pulse 80 04/14/23 07:29 Resp 12 04/14/23 07:29 BP 98/66 04/14/23 07:29 Pulse Ox 96 04/14/23 07:29 O2 Del Method Room Air 04/14/23 07:29 BMI result Body Mass Index 18.4 Const: Other: General awake alert, in no acute distress. Neck supple no JVD. CVS regular rate rhythm, Respiratory lungs clear to auscultation, no respiratory distress, no wheeze, no rhonchi. Gastrointestinal abdomen distended, non tender, bowel sounds audible, no guardi ng , no rigidity. Extremities no edema. Neuro non focal , moving all 4 extremity speech clear. Skin no rash Psych appropriate affect DS: Data Data Completed and Pending Completed studies during hospitalization [Text1]: Procedures Drainage of Peritoneal Cavity, Percutaneous Approach (03/26/23) Inspection of Upper Intestinal Tract, Via Natural or Artificial Opening Endoscopic (09/09/22) Transfusion of Nonautologous Red Blood Cells into Peripheral Vein, Percutaneous Approach (09/09/22) Labs on day of discharge: Laboratory Results - last 24 hr 04/13/23 04/13/23 04/13/23 11:11 16:36 19:59 Hold Purple Top Sodium Potassium Chloride Carbon Dioxide Anion Gap BUN Creatinine Estim Creat Clear Calc Estimated GFR POC Glucose 182 H 290 H 245 H Random Glucose Calcium Total Bilirubin AST ALT Alkaline Phosphatase Ammonia Total Protein Albumin 04/14/23 04/14/23 05:56 07:14 Hold Purple Top SEE NOTE Sodium 134 L Potassium 3.7 Chloride 102 Carbon Dioxide 26 Anion Gap 10 L BUN 15 Creatinine 1.29 Estim Creat Clear Calc 47.3 Estimated GFR 57 POC Glucose 162 H Random Glucose 185 H Calcium 8.5 Total Bilirubin 1.7 H AST 68 H ALT 38 Alkaline Phosphatase 200 H Ammonia 41 Total Protein 6.3 L Albumin 2.3 L Discharge Plan Discharge Anticipated Discharge Date/Time: 04/14/23 10:24 Patient Disposition: Home, Self-Care Discharge Diagnosis: Acute hepatic encephalopathy Referrals: Dony Morgan PA [Primary Care Provider] - 1 Week Discharge Medications: New spironolactone [Aldactone] 100 mg tablet 100 mg PO DAILY Qty: 30 0RF Continued atorvastatin 20 mg tablet 20 mg PO DAILY insulin glargine-yfgn [Semglee(insulin glarg-yfgn)Pen] 100 unit/mL (3 mL) insulin pen 66 unit subcut DAILY furosemide 20 mg tablet 40 mg PO DAILY Xifaxan 550 mg Tablet 550 mg PO BID Qty: 60 0RF nadolol 20 mg tablet 20 mg PO DAILY gabapentin 300 mg capsule 300 mg PO BEDTIME hydroxyzine HCl 50 mg tablet 50 mg PO BEDTIME PRN (Reason: anxiety) lidocaine 5 % adhesive patch,medicated 1 patch topical DAILY PRN (Reason: Pain) omeprazole 20 mg capsule,delayed release(DR/EC) 20 mg PO DAILY@0630 mirtazapine 7.5 mg tablet 7.5 mg PO BEDTIME lactulose 20 gram/30 mL solution 20 g PO TID Icy Hot (menthol) 5 % Adhesive Patch,Medicated 1 patch TOPICAL DAILY ferrous sulfate 325 mg (65 mg iron) tablet 325 mg PO DAILY Discontinued spironolactone 50 mg tablet 150 mg PO DAILY Discharge Orders: Discharge Order (Routine); Ordered 04/14/23 Ordered By: Aj Mijares Diet: Diabetic diet Activity on Discharge: As tolerated Stand Alone Forms: Patient Portal Discharge page Care Plan Goals: Recommend compliance with lactulose, follow diabetic diet, low carbs and high- protein Dose of spironolactone reduced to 100 mg daily due to acute kidney injury and soft blood pressure Take all other home medications as before Take Ensure daily Health Concerns: Diabetes mellitus monitor blood sugars and adjust dose of insulin if needed to keep blood sugar between 100-120 Plan of Treatment: Outpatient follow-up with primary care physician and Gastroenterology Assessment: As above Patient Instructions: Hepatic Encephalopathy (DC)
[2023-04-14 11:10] LABS: Glucose, Whole Blood 313 mg/dL (60-115)
--- NOTE | 2023-04-14 11:15 | MHC.CM.PN ---
pt dcd home no servies
[2023-04-14 11:18] LABS: Glucose, Whole Blood 302 mg/dL (60-115)
== END 2023-04-14 12:13 | disposition home or self-care (01) | DRG 280 ==
LOC: HO.ED 13:27 → HO.EDOVER 14:34 → HO.S3 15:41
PROVIDERS: Internal Medicine; Student in an Organized Health Care Education/Training Program; Admitting Provider Student in an Organized Health Care Education/Training Program; Emergency Provider Emergency Medicine; PCP Physician Assistant Medical; Visit Provider Hospitalist
DX: K70.30 Alcoholic cirrhosis of liver without ascites (principal); N17.9 Acute kidney failure, unspecified; E44.0 Moderate protein-calorie malnutrition; I85.10 Secondary esophageal varices without bleeding; F39 Unspecified mood [affective] disorder; I25.10 Atherosclerotic heart disease of native coronary artery without angina pectoris; E78.5 Hyperlipidemia, unspecified; E11.9 Type 2 diabetes mellitus without complications; E86.0 Dehydration; F10.91 Alcohol use, unspecified, in remission; K76.82 Hepatic encephalopathy; Z86.19 Personal history of other infectious and parasitic diseases; Z87.891 Personal history of nicotine dependence; Z68.1 Body mass index [BMI] 19.9 or less, adult; Z79.899 Other long term (current) drug therapy
CPT/HCPCS: 36415; 80053; 82140; 82248; 82947; 83036; 83690; 85025; 99285; J1650

== ENCOUNTER → 2023-04-12 14:26 | Outpatient (BNV) | payer OTHER, SELFPAY | PROVIDERS: Admitting Provider Student in an Organized Health Care Education/Training Program; Emergency Provider Emergency Medicine; PCP Physician Assistant Medical; Visit Provider Student in an Organized Health Care Education/Training Program | DX: K76.82 Hepatic encephalopathy (principal); K74.60 Unspecified cirrhosis of liver; R18.8 Other ascites | CPT/HCPCS: 99223; 99232; 99239 ==

== ENCOUNTER → 2023-04-12 14:26 | Outpatient (BNV) | payer OTHER, SELFPAY | PROVIDERS: Admitting Provider Student in an Organized Health Care Education/Training Program; Emergency Provider Emergency Medicine; PCP Physician Assistant Medical; Visit Provider Internal Medicine Gastroenterology | DX: K76.82 Hepatic encephalopathy (principal); K74.60 Unspecified cirrhosis of liver; R18.8 Other ascites | CPT/HCPCS: 99232 ==

== ENCOUNTER 2023-05-16 15:05 | Outpatient (AMB) | payer OTHER, SELFPAY ==
[2023-05-16 15:06] VITALS: BP 98/80; PULSE 113; O2SAT 99; BMI 20.3
--- NOTE | 2023-05-16 15:06 | A.OFFPC_ITS ---
Vital Signs 05/16/23 15:06 Height 5 ft 8 in Weight 133 lb 6.075 oz BMI 20.3 BP 98/80 Blood Pressure Location Lt brachial Position Sitting Pulse 113 H Pulse Source Pulse Oximeter Pulse Oximetry (%) 99 Oxygen Delivery Method Room Air Intake Visit Reasons: New Patient / [facility] Liver Cirrhosis 04/14/23 Field Service Technician Required: No Accompanied by: Self / Same As Patient Allergies codeine [CODEINE] Allergy (Mild, Verified 05/18/23 14:46) ITCHINESS, itching penicillin G Allergy (Mild, Verified 05/18/23 14:46) itching Medication List - Last Reconciled 05/18/23 by César Strickland MD atorvastatin 20 mg PO DAILY ferrous sulfate 325 mg PO DAILY furosemide 40 mg PO DAILY gabapentin 300 mg PO BEDTIME hydroxyzine HCl 50 mg PO BEDTIME PRN insulin glargine-yfgn (Semglee (insulin glargine-yfgn) Pen) 66 units subcut DAILY lactulose 20 grams PO TID lidocaine 5% 1 patch topical DAILY PRN menthol 5% (Icy Hot (menthol)) 1 patch topical DAILY mirtazapine 7.5 mg PO BEDTIME nadolol 20 mg PO DAILY 90 days omeprazole 20 mg PO DAILY@0630 rifaximin (Xifaxan) 550 mg PO BID spironolactone (Aldactone) 100 mg PO DAILY Tobacco use date assessed: 05/16/23 Dental Screening Dental Screen Date: 05/16/23 Did you have a dental visit in the last 12 months?: Yes Did you have a dental problem in the last 6 months where you did not have access to dental care?: No Was dental information given to patient?: Patient has dentist HPI New Patient / [facility] Liver Cirrhosis 04/14/23 HPI Details Patient comes in today to establish care - is a new patient to the practice and is accompanied to today's visit by his daughter Agatha His previous PCP was at [facility] (JERI Morgan); states that he is switching over as most of his other doctors and specialists are here at [facility] States that he's had liver cirrhosis for years and per his record, started experiencing UGI bleeding back in 2012 for which he was admitted to [facility] and had EGD with banding of the bleeding varix at the time He has been getting abdominal paracentesis every 2 weeks lately and was reportedly informed just a couple of days ago that due to his overall condition recently, he is being removed from the liver transplant list He was also advised to request for a referral to palliative care and that he may benefit from some physical therapy for strengthening and that the physical therapy may be provided as well by palliative care States that he would also need his Nadolol Rx refilled if he is to continue on it Would also like to get his flu shot today if appropriate He presently denies any headaches or dizziness Denies any chest pains; reports (+) SANCHEZ and frequent SOB (+) occasional nausea but denies any vom iting lately States that his stomach feels bloated and distended often (related to his ascites) but denies any recent abdominal pain No change in bowel habits noted - states that he often has loose stools and at times, some diarrhea due to his meds, especially his Lactulose PFSH Medical History (Updated 05/18/23 @ 16:28 by César Strickland MD) Mood disorder Anemia Coronary artery disease Chronic hyponatremia Diabetes mellitus Cirrhosis of liver with ascites Chronic liver failure S/P abdominal paracentesis Black stools Normocytic anemia Abdominal ascites Cirrhosis of liver Varices, esophageal History of alcohol abuse Diabetes Elevated cholesterol Myocardial infarction HTN (hypertension) Hepatitis Cirrhosis Surgical History Hx of hand surgery History of PTCA History of esophagogastroduodenoscopy (EGD) H/O colonoscopy Social History Household Members: None Housing: House Do you presently have visiting nurse or other home services: No Unable to assess alcohol history related to: Unable to respond Alcohol intake: former 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 1. Little interest or pleasure in doing things: not at all 2. Feeling down, depressed, or hopeless: not at all 3. Trouble falling or staying asleep, or sleeping too much: not at all 4. Feeling tired or having little energy: not at all 5. Poor appetite or overeating: not at all 6. Feeling bad about yourself - or that you are a failure or have let yourself or your family down: not at all 7. Trouble concentrating on things, such as reading the newspaper or watching television: not at all 8. Moving or speaking so slowly that other people could have noticed. Or the opposite - being so fidgety or restless that you have been moving around a lot more than usual: not at all 9. Thoughts that you would be better off or of hurting yourself in some way: not at all Total score: 0 Depression Screening Interpretation: Negative (is on Rx) Depression Screening Done: Yes 49097 - PHQ-9 Billing: Yes Source: Developed by Drs. Maverick Toledo, Ese Colón, Álvaro Garcias and colleagues, with an educational rad from [employer]. Thrive Questionnaire Date Thrive assessed: 05/16/23 I am a: Patient What is your living situation today?: I have a steady place to live Within the past 12 months, did the food you bought not last and you didn't have the money to get more?: Never true Within the past 12 months, did you worry whether your food would run out before you got money to buy more?: Never true Do you have trouble paying for medicines?: No Do you have trouble getting transportation to medical appointments?: No Do you have trouble paying your heating and electricity bill?: No Do you have trouble taking care of your child, family member or friend?: No Do you have trouble with day-to-day activities such as bathing, preparing meals, shopping, managing finances, etc.?: No Are you currently unemployed and looking for a job?: No Are you interested in more education?: No Please select the resources that you would like help with: None Currently or been in a relationship where the following occur: no concerns reported AUDIT C Alcohol Use Questionnaire (AUDIT-C) 1. How often do you have a drink containing alcohol?: Never 3. How often do you have six or more drinks on one occasion?: Never Total Score: 0 Score Reviewed/Action Taken: Yes KAELYN-7 AMB Questionnaire KAELYN-7 Date KAELYN - 7 assessed: 05/16/23 Feeling nervous, anxious, or on edge: 0 = Not at all Not being able to stop or control worryin = Not at all Worrying too much about different things: 0 = Not at all Trouble relaxin = Not at all Being so restless that it is hard to sit still: 0 = Not at all Becoming easily annoyed or irritable: 0 = Not at all Feeling afraid as if something awful might happen: 0 = Not at all Total KAELYN-7 score (0-4 normal; 5-9 mild; 10-14 moderate; 15-21 severe): 0 Source: Developed by Drs. Maverick Toledo, Ese Colón, Álvaro Garcias and colleagues, with an educational rad from [employer]. Review of Systems Const Denies chills, Reports difficulty sleeping, Reports fatigue, Denies fever(s), Denies headache(s) and Reports weakness ENT Denies dysphagia, Denies dizziness, Denies otalgia, Denies headache(s), Denies neck pain, Denies odynophagia and Denies sore throat Card Denies chest pain, Denies palpitations and Reports dyspnea on exertion Resp Denies chest congestion, Denies cough and Reports dyspnea on exertion GI Denies abdominal pain, Reports bloating (frequent), Denies hematochezia, Denies coffee ground emesis, Denies constipation, Denies dysphagia, Denies heartburn, Reports diarrhea (due to his Rx), Reports loose stools (due to his Rx), Reports nausea (on and off), Denies odynophagia and Denies vomiting Denies dysuria, Denies nocturia and Reports urinary frequency (is on diuretics) Musc Denies back pain, Reports muscle weakness (overall) and Denies neck pain Skin/Breast Denies rash Neuro Denies dizziness, Denies headache(s) and Reports weakness Endo Reports fatigue and Denies palpitations Physical exam (Primary Care) Vital Signs: Last Vital Signs Pulse 113 H 05/16/23 15:06 BP 98/80 05/16/23 15:06 Pulse Ox 99 05/16/23 15:06 Oxygen Delivery Method Room Air 05/16/23 15:06 BMI result Body Mass Index 20.3 Tobacco/Smoking Status: Tobacco use Status Tobacco use date assessed 05/16/23 05/16/23 15:07 Patient Tobacco Use Status Former Tobacco user 05/16/23 15:07 Tobacco use type Cigarette 05/16/23 15:07 PHQ-9: PHQ-9 Score PHQ-9: Total score 0 05/18/23 06:49 Depression Screening Interpretation: Negative (is on Rx) Thrive Assessment: Date of Thrive Assessment Date Thrive assessed 05/16/23 05/16/23 15:07 Currently or been in a relationship where the following occur: no concerns reported Const General: no acute distress, alert and tired appearing HENMT Ears: TM's normal bilaterally and EAC's normal Throat: Yes posterior oropharynx normal and Yes tonsils normal (no TP congestion) Neck Neck: Yes no lymphadenopathy and Yes supple Thyroid: Thyroid normal Resp Auscultation: clear to auscultation bilaterally, no rales and no wheezes Cardio Rate: regular rate Rhythm: regular rhythm Heart sounds: no murmurs GI Inspection: Yes distended Palpation (GI): Soft to palpation, nontender (but (+) diffuse discomfort) and Ascites present Auscultation: normal bowel sounds Skin Rashes: no rashes Extrem General: No clubbing, No cyanosis and Yes edema (1+ bipedal edema) Office Procedures Flu Questionnaire Does the patient have a severe egg allergy?: No Does the patient have severe life threatening allergies?: No Does the patient have a fever or illness today?: No Has the patient ever had Guillain-Cadogan Syndrome?: No Has the patient ever had any past reaction to a flu shot?: No Immunizations flu vacc [id number] 6mos up(PF) 60 mcg(15 mcgx4)/0.5 mL IM syringe Performing Provider: César Strickland MD [facility] Administered by: Andrea Garrido on 05/16/23 16:03 Dose Route Admin Location Dispensed Lot Number Expiration Date NDC Ms Access Database Developer 0.5 mL IM Left Deltoid 0.5 mL [id number] 12/07/23 83586-574-72 [employer] VIS Given Date VIS Provided VIS Publication Date 05/16/23 Single Vaccine 21 Eligibility Eligibility Date Funding Source Not 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 Green at [place] - hepatitis C RNA level were reportedly undetectable when checked in October 2012 and in 2014 Liver biopsy done in 2007 reportedly revealed (+) grade 3/4 hepatitis with stage III/IV fibrosis and evidence of steatohepatitis He is currently getting abdominal paracentesis every 2 weeks to help remove his ascitic fluid Continue Nadolol 20 mg QD and Spironolactone 100 mg QD; continue Furosemide 40 mg QD (2) Chronic liver failure: Code(s): K72.10 - Chronic hepatic failure without coma Qualifiers: Hepatic coma status: without hepatic coma Qualified Code(s): K72.10 - Chronic hepatic failure without coma Plan: (+) Hx of bleeding esophageal varices, S/P banding Continue Xifaxan 550 mg BID and Lactulose 20 gm TID Continue Omeprazole 20 mg QD for his esophageal varices and Hx of GI bleeding States that he was just informed by [facility] that he is being taken off the liver transplant list (was initially accepted in November 2020) due to his recently declining condition Was supposedly advised to request for referral to palliative care and that he may benefit from physical therapy to help with his overall weakness - referral to palliative care done and included request for home physical therapy included in the referral Follow up with GI as scheduled (3) Diabetes mellitus: Code(s): E11.9 - Type 2 diabetes mellitus without complications Qualifiers: Diabetes mellitus type: type 1 Diabetes mellitus complication status: with hyperglycemia Qualified Code(s): E10.65 - Type 1 diabetes mellitus with hyperglycemia Plan: His HgbA1c was at 8.2% when last checked about a month ago on 04/12/2023 - goal is <7.0% Reinforced diabetic diet Continue Semglee 66 units QD for now Will refer him to endocrinology for further evaluation and management of his diabetes, which he states has been difficult to control lately given his multiple comorbidities (4) Coronary artery disease: Code(s): I25.10 - Atherosclerotic heart disease of [place] coronary artery without angina pectoris Qualifiers: Coronary Disease-Associated Artery/Lesion type: [place] artery [place] vs. transplanted heart: [place] heart Associated angina: without angina Qualified Code(s): I25.10 - Atherosclerotic heart disease of [place] coronary artery without angina pectoris Plan: S/P TN in 09/2016 - reportedly had 1 stent inserted but no further details are available pertaining to this Patient is not able to take Aspirin 81 mg due to past Hx and continuing high risk for GI bleeding Continue Atorvastatin 20 mg QD Will have patient recheck his labs and fasting lipids in 3 months for follow up (5) Chronic hyponatremia: Code(s): E87.1 - Hypo-osmolality and hyponatremia Plan: Also multifactorial, including his liver failure/cirrhosis and ascites, as well as his chronic diuretic use and diabetes Will continue to monitor his serum sodium and electrolytes regularly Follow up with nephrology (Dr. Carballo) as scheduled (6) Anemia: Code(s): D64.9 - Anemia, unspecified Qualifiers: Anemia type: unspecified type Qualified Code(s): D64.9 - Anemia, unspecified Plan: Multifactorial, including due to iron deficiency, chronic blood loss (due to hemolysis) and to chronic disease Continue Ferrous Sulfate 325 mg QD Will recheck his CBC in 3 months (7) Mood disorder: Code(s): F39 - Unspecified mood [affective] disorder Plan: Continue Mirtazapine 7.5 mg Q HS, Gabapentin 300 mg Q HS and Hydroxyzine 50 mg Q HS Follow up with psychiatry as scheduled Plan Flu vaccine given today Follow up in 3 months Orders: Orders Comprehensive [place]. Panel Fast 3 Months E78.00 - Pure hypercholesterolemia, unspecified Lipid Panel 3 Months E78.00 - Pure hypercholesterolemia, unspecified Microalbumin, Random (w Creat) 3 Months E11.9 - Type 2 diabetes mellitus without complications UA CC w/rflx Micro + Cult 3 Months R30.0 - Dysuria Erythropoietin (EPO) 3 Months D64.9 - Anemia, unspecified Influenza [id number] Immunization 05/16/23 Z23 - Encounter for immunization Complete Blood Count Auto Diff 3 Months I10 - Essential (primary) hypertension Hemoglobin A1c 3 Months E11.9 - Type 2 diabetes mellitus without complications Vitamin D 25-OH Total 3 Months E55.9 - Vitamin D deficiency, unspecified Vitamin B12 and Folate 3 Months E53.8 - Deficiency of other specified B group vitamins IRON PROFILE 3 Months D50.9 - Iron deficiency anemia, unspecified Ammonia 3 Months K76.82 - Hepatic encephalopathy Magnesium 3 Months E83.42 - Hypomagnesemia Osmolality, Serum 3 Months E87.1 - Hypo-osmolality and hyponatremia Referrals Endocrinology Referral E11.9 - Type 2 diabetes mellitus without complications Palliative Care Referral K72.10 - Chronic hepatic failure without coma, K74.60 - Unspecified cirrhosis of liver, R18.8 - Other ascites Medications: Changed From nadolol 20 mg PO DAILY To nadolol 20 mg PO DAILY 90 tabs 1RF 90 days Coding Level of Care Code New Pt Level 4 (23651) Diagnoses Cirrhosis of liver with ascites, unspecified hepatic cirrhosis type K74.60; R18.8 Hepatic cirrhosis type: unspecified hepatic cirrhosis Chronic liver failure without hepatic coma K72.10 Hepatic coma status: without hepatic coma Type 1 diabetes mellitus with hyperglycemia E10.65 Diabetes mellitus type: type 1 Diabetes mellitus complication status: with hyperglycemia Coronary artery disease involving [place] coronary artery of [place] heart without angina pectoris I25.10 Coronary Disease-Associated Artery/Lesion type: [place] artery [place] vs. transplanted heart: [place] heart Associated angina: without angina Chronic hyponatremia E87.1 Anemia, unspecified type D64.9 Anemia type: unspecified type Mood disorder F39
== END 2023-05-16 16:11 | disposition home or self-care (01) ==
PROVIDERS: PCP Physician Assistant Medical; Visit Provider Internal Medicine
DX: Z23 Encounter for immunization (principal)
CPT/HCPCS: 90471; 90686; 99204

== ENCOUNTER 2023-05-16 16:21 | Outpatient (REF) | payer OTHER, SELFPAY ==
[2023-05-16 16:47] LABS: MANUAL DIFF FLAG NO
[2023-05-16 16:56] LABS: Ammonia 77 umol/L (13-55)
[2023-05-16 17:39] LABS: Basophils Percent Auto 0.6 % (0-2); Eosinophils Absolute Auto 0.1 X10*3/uL (0.0-0.4); Eosinophils Percent Auto 1.6 % (0-4); Hemoglobin 13.2 g/dl (14.0-18.0); Imm Gran Abs Auto 0.02 X10*3/uL (0.00-0.03); Imm Gran Pct Auto 0.4 % (0.0-0.4); Lymphocytes Absolute Auto 0.5 X10*3/uL (1.2-4.9); Lymphocytes Percent Auto 8.9 % (20-40); Mean Corpuscular HGB Conc 34.7 g/dl (31.0-36.0); Mean Corpuscular Hemoglobin 29.6 pg (27.0-33.0); Mean Corpuscular Volume 85.2 fL (80.0-98.0); Mean Platelet Volume 10.2 fL (9.4-12.4); Monocytes Absolute Auto 0.5 X10*3/uL (0.1-1.2); Monocytes Percent Auto 9.5 % (2-11); Red Blood Count 4.46 X10*6/uL (4.60-5.80); Red Cell Distribution Width 14.2 % (11.0-16.0)
[2023-05-16 17:43] LABS: Platelet Count 71 X10*3/uL (160-400)
[2023-05-16 17:46] LABS: INTERNATIONAL NORM RATIO 1.5 (0.9-1.1)
[2023-05-16 18:46] LABS: Alanine Aminotransferase 23 U/L (0-40); Albumin Level 2.3 g/dL (3.5-5.0); Alkaline Phosphatase 172 U/L (39-117); Anion Gap 16 (12-20); Aspartate Amino Transferase 40 U/L (5-37); Bilirubin Direct 1.2 mg/dL (0.0-0.5); Bilirubin Total 2.8 mg/dL (0.0-1.0); Blood Urea Nitrogen 20 mg/dL (9-16); Carbon Dioxide 24 mmol/L (22-29); Chloride 94 mmol/L (96-108); Estimated Glomerular Filt Rate 32; Potassium 3.5 mmol/L (3.3-5.1); Sodium 130 mmol/L (135-145); Total Protein 7.1 g/dL (6.5-8.0)
[2023-05-16 19:00] LABS: Glucose Random 371 mg/dL (60-115)
== END 2023-05-16 16:22 | disposition home or self-care (01) ==
LOC: HO.LAB 16:21
PROVIDERS: Nurse Practitioner Acute Care; PCP Physician Assistant Medical; Visit Provider Internal Medicine
DX: B19.20 Unspecified viral hepatitis C without hepatic coma (principal); K70.31 Alcoholic cirrhosis of liver with ascites; Z76.82 Awaiting organ transplant status
CPT/HCPCS: 36415; 80053; 80076; 82140; 82248; 85025; 85610

== ENCOUNTER 2023-05-23 09:00 | Day surgery (SDC) | payer OTHER, SELFPAY ==
--- NOTE | ~2023-05-23 | US_ITS ---
Ultrasound paracentesis History: Ascites. Risks and benefits and possible complications were discussed with the patient and consent form was signed. A safe pocket of ascitic fluid was identified using ultrasound guidance, and the overlying skin was marked. The abdomen prepped and draped in sterile fashion. 1% lidocaine was used as a local anesthetic. Using ultrasound guidance, a 5 fr catheter was placed into the ascitic pocket. 5.0 liters of yellow fluid was removed passively. The catheter was then removed. Fluid sent for analysis. A few patient services representative images from before and after the examination were obtained. The procedure was performed by Matthew Woodruff PA-C and supervised by Dr. Mead. US/US paracentesis abd w/image Impression: Ultrasound-guided paracentesis as described above. No immediate complications
[2023-05-23 09:11] VITALS: BMI 24.3
[2023-05-23 09:54] LABS: Glucose, Whole Blood 188 mg/dL (60-115)
[2023-05-23 09:55] LABS: Anion Gap 14 (12-20); Blood Urea Nitrogen 20 mg/dL (9-16); Carbon Dioxide 28 mmol/L (22-29); Chloride 91 mmol/L (96-108); Creatinine Clr Calc Pharmacy 40.6; Estimated Glomerular Filt Rate 44; Potassium 3.5 mmol/L (3.3-5.1); Sodium 129 mmol/L (135-145)
[2023-05-23] MEDS: Albumin Human 25 % 100 ML IV (10:05)
--- NOTE | 2023-05-23 10:18 | PC.NURSE ---
Preop sodium 129. Tracey Prakash RN aware.
[2023-05-23 12:05] VITALS: BP 121/79; PULSE 89; RESP 18; TEMP 37.3; O2SAT 99
[2023-05-23] MEDS: Lidocaine HCl 1 % 20 ML VIAL 5 ML SUBCUT (12:12)
[2023-05-23 12:20] VITALS: BP 124/70; PULSE 93; RESP 18; O2SAT 99
[2023-05-23 12:35] VITALS: BP 105/63; PULSE 98; RESP 20; TEMP 36.8; O2SAT 100
[2023-05-23 12:41] LABS: MN% 79.3 %; PMN% 20.7 %; WBC Peritoneal Fluid 0.095 X10*3/uL
[2023-05-23 12:42] LABS: RBC Peritoneal Fluid < 0.002 X10*6/uL
[2023-05-23 13:20] LABS: BF Shift QC OK YES; Lymphocyte Peritoneal Fl 30 %; Monocytes Peritoneal Fl 3 %; Neutrophils Peritoneal Fluid 17 %; Other Peritioneal Fl 50 %
[2023-05-23 18:40] LABS: Albumin Peritoneal Fluid 0.2 GM/DL; Total Protein Peritoneal Fluid 0.6 GM/DL
== END 2023-05-23 12:55 | disposition home or self-care (01) ==
PROVIDERS: Internal Medicine; PCP Internal Medicine; Visit Provider Physician Assistant Surgical
DX: K70.31 Alcoholic cirrhosis of liver with ascites (principal)
CPT/HCPCS: 36415; 49083; 80051; 82042; 82565; 82947; 84157; 84520; 87070; 87073; 87205; 89051; P9047

== ENCOUNTER → 2023-05-23 10:30 | Outpatient (BNV) | payer OTHER, SELFPAY | PROVIDERS: PCP Internal Medicine; Visit Provider Student in an Organized Health Care Education/Training Program | DX: R18.8 Other ascites (principal) | CPT/HCPCS: 49083 ==

== ENCOUNTER 2023-05-31 16:32 | Emergency (ER) | payer OTHER, SELFPAY ==
--- NOTE | ~2023-05-31 | CT_ITS ---
EXAMINATION: CT CHEST WITHOUT CONTRAST CLINICAL INFORMATION: Fall, injury and pain COMPARISON: None available. TECHNIQUE: Multidetector volumetric CT imaging of the chest was done. Axial MIP volume rendering provided. Sagittal and coronal reformatted images were obtained. This CT examination was performed using dose optimization techniques as appropriate, variously including the following: *Automated exposure control *Adjustment of mA and/or kV according to patient size (this includes techniques or standardized protocols for targeted exams where dose is matched to indication/reason for exam; i.e. extremities or head) *Use of iterative reconstruction technique DLP: 151 mGy-cm FINDINGS: POWER ORIGINATOR: Hypoexpanded lungs LUNGS: The lungs are well-expanded with bilateral lower lobe bandlike atelectasis. There is 1 mm calcification right upper lobe axial image 28/4. No noncalcified pulmonary nodules seen. MEDIASTINUM: The thyroid lobes are symmetrical and normal. The central trachea and bronchi are widely patent. Heart size and the great vessels are normal caliber. No abnormal size mediastinal or hilar lymph nodes seen. No pericardial effusion seen. CORONARY ARTERY CALCIFICATION: There is moderate coronary artery calcifications present. PLEURA: There is no pleural effusion. No pleural mass or thickening. AXILLA: No lymphadenopathy. UPPER ABDOMEN: There is diffuse large ascites. Visualized liver, spleen and pancreas is unremarkable OSSEOUS STRUCTURES: Unremarkable. CT/CT chest wo IV con IMPRESSION: No acute intrathoracic process seen. Large ascites Fleischner guidelines were followed.
[2023-05-31 16:43] VITALS: BP 92/55; PULSE 73; RESP 16; TEMP 36; O2SAT 96; BMI 32.7
--- NOTE | 2023-05-31 16:43 | ED.GENADULT ---
HPI - General Adult General Chief complaint: Fall Stated complaint: fell 05/29 chest,abd sore Time Seen by Provider: 05/31/23 16:58 Source: patient Mode of arrival: ambulatory Limitations: no limitations History of Present Illness HPI narrative: Patient is a 58-year-old male with history of cirrhosis with ascites, CAD, chronic hyponatremia, anemia, HTN, dm presenting to the emergency department with complaint of chest and abdominal pain after a trip and fall yesterday morning. He denies head strike or loss of consciousness. He is not anticoagulated. He denies any palpitations, shortness of breath, difficulty breathing. Denies any hemoptysis, hematuria, hematochezia or melena. Reports his last paracentesis was 05/23. MD complaint: chest and abdominal pain Onset (ago): day(s) Location: chest and abdomen Radiation: non-radiation Severity: moderate Severity scale (1-10): 5 Quality: aching Pain Consistency: colicky Relieving factors: rest Exacerbating factors: movement Associated symptoms: denies other symptoms Treatments prior to arrival: none Related Data Home Medications Medication Instructions Recorded Confirmed atorvastatin 20 mg tablet 20 mg PO DAILY 06/29/20 05/23/23 insulin glargine-yfgn 100 unit/mL 66 unit subcut DAILY 09/09/22 05/23/23 (3 mL) subcutaneous pen (Semglee (insulin glargine-yfgn) Pen) gabapentin 300 mg capsule 300 mg PO BEDTIME 12/27/22 05/23/23 ferrous sulfate 325 mg (65 mg 325 mg PO DAILY 03/26/23 05/23/23 iron) tablet hydroxyzine HCl 50 mg tablet 50 mg PO BEDTIME PRN anxiety 03/26/23 05/23/23 lactulose 20 gram/30 mL oral 20 g PO TID 03/26/23 05/23/23 solution lidocaine 5 % topical patch 1 patch topical DAILY PRN Pain 03/26/23 05/23/23 menthol 5 % topical patch (Icy Hot 1 patch topical DAILY 03/26/23 05/23/23 (menthol)) mirtazapine 7.5 mg tablet 7.5 mg PO BEDTIME 03/26/23 05/23/23 omeprazole 20 mg capsule,delayed 20 mg PO DAILY@0630 10/18/23 12/15/23 release furosemide 20 mg tablet 40 mg PO DAILY 04/12/23 05/23/23 Previous Rx's Medication Instructions Recorded rifaximin 550 mg tablet (Xifaxan) 550 mg PO BID #60 tabs 10/04/22 spironolactone 100 mg tablet 100 mg PO DAILY #30 tabs 04/14/23 (Aldactone) nadolol 20 mg tablet 20 mg PO DAILY 90 days #90 tabs 05/16/23 lidocaine 5 % topical patch 1 patch topical DAILY #15 ea 05/31/23 Allergies Allergy/AdvReac Type Severity Reaction Status Date / Time codeine [CODEINE] Allergy Mild ITCHINESS, Verified 05/31/23 16:47 itching penicillin G Allergy Mild itching Verified 05/31/23 16:47 Review of Systems Review of Systems: As per HPI. Yes all other systems are reviewed and are negative Constitutional: Constitutional: Reports as per HPI REPLACED BY [facility] Past Medical History Medical History (Updated 05/31/23 @ 18:00 by Eri Koroma NP) Mood disorder Anemia Coronary artery disease Chronic hyponatremia Diabetes mellitus Cirrhosis of liver with ascites Chronic liver failure S/P abdominal paracentesis Black stools Normocytic anemia Abdominal ascites Cirrhosis of liver Varices, esophageal History of alcohol abuse Diabetes Elevated cholesterol Myocardial infarction HTN (hypertension) Hepatitis Cirrhosis Surgical History Hx of hand surgery History of PTCA History of esophagogastroduodenoscopy (EGD) H/O colonoscopy Social History Social History Household Members: None Housing: House Do you presently have visiting nurse or other home services: No Unable to assess alcohol history related to: Unable to respond Alcohol intake: never 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 Tobacco Use Status: Former Tobacco user Quit Date: 2013 Tobacco use type: Cigarette Smoked in Last 30 Days: No Second Hand Smoke Exposure: No Use of substances other than those prescribed or required for medical reasons: No Advance Directives: Yes Advance Directives on File: Yes Advance Directives Date on File: 09/13/22 service: No Current occupational status: disabled Cognitive needs: No Hearing needs: No Vision needs: No Physical Exam ED Vital Signs: Vital Signs - 24 hr 05/31/23 16:43 Temperature 96.8 F Pulse Rate 73 Respiratory Rate 16 Blood Pressure 92/55 L Pulse Oximetry 96 Oxygen Delivery Method Room Air BMI result Body Mass Index 32.7 Vital signs have been reviewed and appear to be correct. Blood pressure slightly low. Heart rate normal. Respiratory rate normal. Temperature normal. Oxygen saturation normal. Const General: cooperative and no acute distress Orientation/consciousness: oriented to person, oriented to place, oriented to time and patient oriented x3 Limitations: no limitations HENMT Head: Yes normocephalic and Yes atraumatic Ears: external ears normal General nose exam: Normal external nose present Face and sinus: Yes face symmetric Mouth: oropharynx normal and moist mucous membranes Throat: Yes uvula midline Eyes Pupils: Equal, round and reactive pupils present Neck Neck: Yes normal visual inspection and Yes supple Chest Chest palpation & inspection: normal inspection of the chest, normal palpation of entire chest wall and no tenderness Resp Effort & Inspection: normal respiratory effort and able to speak in complete sentences Auscultation: clear to auscultation bilaterally Cardio Rate: regular rate Rhythm: regular rhythm Heart sounds: S1 normal heart sound present and S2 normal heart sound present GI Inspection: Yes distended Palpation (GI): Soft to palpation and nontender Auscultation: normoactive bowel sounds General: Yes no CVA tenderness Back/Spine/Pelvis Back: no CVA tenderness Skin General skin exam: elasticity normal and turgor normal Neuro General: oriented to person, oriented to place, oriented to time, patient oriented x3, moves all extremities, no focal motor deficits and CN's II-XI intact bilaterally Cranial nerves: Yes Equal, round and reactive pupils present Cognition (Neuro): normal cognition Extrem General: Yes full ROM, Yes no pedal edema and Yes no calf tenderness Psych Mental Status: mental status grossly normal Affect: normal affect Thought process: Normal thought process present Course Course Course Narrative: RME performed by Angie Simth PA-C. Patient is a 58 year old assigned male at presenting to the emergency department with chest and abdominal pain after a trip and fall 2 days ago. Imaging ordered. Patient placed back in the waiting room pending room availability and results. Medical Decision Making Medical Decision Making MDM Narrative: Patient is a 58-year-old male with history of cirrhosis with ascites, CAD, chronic hyponatremia, anemia, HTN, dm presenting to the emergency department with complaint of chest and abdominal pain after a trip and fall yesterday morning. On exam patient is awake, A+Ox3, BP slightly low, patient states this is not abnormal for him, VS otherwise WNL, afebrile, normal neurological exam without focal deficits, physical exam findings as above. Given reported symptoms and physical exam findings, initial differential includes rib fracture or contusion, pneumothorax. Less likely aortic dissection or perforated viscous. CT notable for no acute intrathoracic process, large ascites. My interpretation is in agreement with the radiologist's interpretation. Patient's abdominal distention due to ascites is at baseline for him. Results discussed with patient and all questions answered. Advised patient to apply ice for 10-15 minutes at a time to affected areas. Will prescribe topical lidocaine patches as patient has been instructed to avoid Tylenol and ibuprofen due to his other medical conditions. Instructed patient to follow up with PCP. Return precautions discussed at bedside. Patient verbalized understanding of and agreement with plan. Differential Diagnosis Differential Diagnoses: The differential diagnosis associated with the presentation includes As per MDM. Admission/Observation Consideration of admission/observation: Escalation of care including admission/observation considered Independent Interpretation I performed an independent interpretation of an: CT Scan Interpretation: No acute intrathoracic process seen, large ascites Radiology Impression Discussion of test interpretation with radiology: I have reviewed the radiologist's reading. Radiologist Impression: CT/CT chest wo IV con IMPRESSION: No acute intrathoracic process seen. Large ascites Fleischner guidelines were followed. External Record Review External record reviewed: Inpatient record, Office record and Outpatient record Prescription Management I considered prescription management with: Pain Medication Discharge Plan Discharge Clinical Impression: Contusion of chest Patient Disposition: Home, Self-Care Instructions: Contusion in Adults (ED), Rib Contusion (ED) Additional Instructions: You were evaluated in the emergency department today for chest and abdominal pain after a fall. Your evaluation has shown no signs of medical conditions requiring emergent intervention at this time, however we recommend that you follow-up with your primary care physician as soon as possible for ongoing symptoms. You are being prescribed topical lidocaine patches which you can wear for up to 12 hours in a 24 hour period, do not apply heat directly over the patches. You can also apply ice to the affected areas for 10-15 minutes at a time several times daily, using caution not to apply ice directly to skin. Return to the emergency department if you experience worsening or uncontrolled chest pain, shortness of breath, lightheadedness, feeling faint, loss of consciousness, blood in your urine or stool, nausea, vomiting, or any other concerning symptoms. Prescriptions: New lidocaine 5 % adhesive patch,medicated 1 patch topical DAILY Qty: 15 0RF Rx Instructions: leave on most painful area for up to 12 hrs No Action atorvastatin 20 mg tablet 20 mg PO DAILY insulin glargine-yfgn [Semglee(insulin glarg-yfgn)Pen] 100 unit/mL (3 mL) insulin pen 66 unit subcut DAILY furosemide 20 mg tablet 40 mg PO DAILY spironolactone [Aldactone] 100 mg tablet 100 mg PO DAILY Qty: 30 0RF Xifaxan 550 mg Tablet 550 mg PO BID Qty: 60 0RF gabapentin 300 mg capsule 300 mg PO BEDTIME hydroxyzine HCl 50 mg tablet 50 mg PO BEDTIME PRN (Reason: anxiety) lidocaine 5 % adhesive patch,medicated 1 patch topical DAILY PRN (Reason: Pain) omeprazole 20 mg capsule,delayed release(DR/EC) 20 mg PO DAILY@0630 mirtazapine 7.5 mg tablet 7.5 mg PO BEDTIME lactulose 20 gram/30 mL solution 20 g PO TID Icy Hot (menthol) 5 % Adhesive Patch,Medicated 1 patch TOPICAL DAILY ferrous sulfate 325 mg (65 mg iron) tablet 325 mg PO DAILY nadolol 20 mg tablet 20 mg PO DAILY 90 Days Qty: 90 1RF
[2023-05-31 18:21] VITALS: BP 92/60; PULSE 70; RESP 18; O2SAT 99
== END 2023-05-31 18:23 | disposition home or self-care (01) ==
PROVIDERS: Emergency Provider Emergency Medicine; PCP Internal Medicine
DX: S20.219A Contusion of unspecified front wall of thorax, initial encounter (principal); E11.9 Type 2 diabetes mellitus without complications; I10 Essential (primary) hypertension; W01.0XXA Fall on same level from slipping, tripping and stumbling without subsequent striking against object, initial encounter; Y93.9 Activity, unspecified; Y92.9 Unspecified place or not applicable; Y99.9 Unspecified external cause status
CPT/HCPCS: 71250; 99284

== ENCOUNTER 2023-06-02 13:19 | Inpatient (IN) | payer OTHER, SELFPAY ==
--- NOTE | 2023-06-02 | ECG_ITS ---
Test Reason : UNRESPONSIVE Blood Pressure : / mmHG Vent. Rate : 064 BPM Atrial Rate : 064 BPM P-R Int : 148 ms QRS Dur : 084 ms QT Int : 446 ms P-R-T Axes : 027 019 021 degrees QTc Int : 460 ms Normal sinus rhythm Normal ECG When compared with ECG of 20-JAN-2023 21:07, Vent. rate has decreased BY 37 BPM Referred By: Generic ED Physician Electronically Signed By:JIE JOSÉ
--- NOTE | ~2023-06-02 | CT_ITS ---
EXAMINATION: CT HEAD WITHOUT CONTRAST CLINICAL INFORMATION: Mental status change COMPARISON: Baseline 10/19/2022 TECHNIQUE: Contiguous axial imaging was performed from the skull base to vertex without intravenous administration of contrast. This CT examination was performed using dose optimization techniques as appropriate, variously including the following: *Automated exposure control *Adjustment of mA and/or kV according to patient size (this includes techniques or standardized protocols for targeted exams where dose is matched to indication/reason for exam; i.e. extremities or head) *Use of iterative reconstruction technique DLP: 670 mGy-cm FINDINGS: There is no evidence of acute intracranial hemorrhage or territorial infarction. No abnormal mass effect or midline shift is seen. Lora to white matter differentiation is well preserved. No extra-axial fluid collections are identified. The ventricles are normal in size. There is no abnormal attenuation within the brain parenchyma. The osseous structures and soft tissues are normal. The mastoid air cells and visualized portions of the paranasal sinuses are well-aerated. CT/CT head/brain wo IV con IMPRESSION: No acute intracranial pathology.
--- NOTE | ~2023-06-02 | XR_ITS ---
EXAMINATION: XR CHEST CLINICAL INFORMATION: Altered mental status. COMPARISON: CT chest 05/31/2023. TECHNIQUE: Frontal view of the chest was obtained. FINDINGS: The lungs are hypoexpanded with left basilar atelectasis. Heart size and pulmonary vascularity is normal. No gross bony abnormality seen. XR/XR chest 1V IMPRESSION: Hypoexpanded lungs with left basilar atelectasis.
[2023-06-02 13:38] VITALS: BP 123/72; PULSE 64; RESP 16; TEMP 36.1; O2SAT 97; BMI 24.9
[2023-06-02 14:42] LABS: Hemoglobin 12.2 g/dl (14.0-18.0); PLT CLUMP 1
[2023-06-02 14:43] LABS: Hematocrit 35.1 % (42.0-52.0); Mean Corpuscular HGB Conc 34.8 g/dl (31.0-36.0); Mean Corpuscular Hemoglobin 29.4 pg (27.0-33.0); Mean Corpuscular Volume 84.6 fL (80.0-98.0); Mean Platelet Volume 10.6 fL (9.4-12.4); Red Blood Count 4.15 X10*6/uL (4.60-5.80)
[2023-06-02 14:46] LABS: White Blood Count 4.7 X10*3/uL (4.8-10.8)
[2023-06-02 14:47] LABS: Ammonia 73 umol/L (13-55); Platelet Count 99 X10*3/uL (160-400)
[2023-06-02 15:04] LABS: Alanine Aminotransferase 45 U/L (0-40); Alkaline Phosphatase 320 U/L (39-117); Anion Gap 13 (12-20); Aspartate Amino Transferase 85 U/L (5-37); Bilirubin Total 2.3 mg/dL (0.0-1.0); Blood Urea Nitrogen 21 mg/dL (9-16); Calcium 8.5 mg/dL (8.4-10.2); Carbon Dioxide 27 mmol/L (22-29); Chloride 100 mmol/L (96-108); Creatinine Clr Calc Pharmacy 44.3; Estimated Glomerular Filt Rate 46; Glucose Random 268 mg/dL (60-115); Potassium 4.2 mmol/L (3.3-5.1); Sodium 136 mmol/L (135-145); Total Protein 6.5 g/dL (6.5-8.0)
--- NOTE | 2023-06-02 15:19 | PC.NURSE ---
pt straight cath for urine, pt responded to painful stimuli
[2023-06-02 15:26] LABS: Appearance Urine Clear; Color Urine Dark Yellow; Glucose Urine UA 500 mg/dL (Negative); Leukocyte Esterase Urine Negative (Negative); Nitrite Urine Negative (Negative); Urine Blood Negative (Negative); Urine Ketones Negative (Negative); Urine Protein Negative (Neg-Trace)
[2023-06-02 15:27] LABS: Ethanol < 10 mg/dL
[2023-06-02 15:40] LABS: IDNOW Serial# 08D9AD1C; Influenza A Negative (Negative); Influenza B2 Negative (Negative)
[2023-06-02 15:41] LABS: COVID-19 Test Negative (Negative); IDNOW Serial# BCCEAD1C
[2023-06-02 16:00] VITALS: BP 106/69; PULSE 63; RESP 16; O2SAT 97
--- NOTE | 2023-06-02 16:02 | PC.NURSE ---
Dr. Lucero in with pt
--- NOTE | 2023-06-02 16:09 | ED_ITS ---
HPI - General Adult General Chief complaint: General Medical Stated complaint: UNRESPONSIVE,AWAKE W/PAIN STIM,H/O END STAGE LIVER Time Seen by Provider: 06/02/23 15:57 Source: patient, family and EMS Mode of arrival: EMS Limitations: altered mental status History of Present Illness HPI narrative: A 58-year-old male with past medical history significant for alcoholic liver cirrhosis complicated with diuresis and ascites with recurrent hepatic encephalopathy, hepatitis-C s/p treatment, insulin-dependent diabetes type 2, CAD S/P stent presented to the ED after was found in his apartment unresponsive to his family patient until yesterday was up around and functioning at home. Patient was found in his bed no suspicion for a fall. Patient responds to verbal stimuli. I discussed at lengthy DNR situation with the family especially with worsening of the LFTs and elevation ammonia level and what the patient is presenting with near coma that could be an indicator for that prognosis but family will honor patient's wishes is to keep him a full code. Related Data Home Medications Medication Instructions Recorded Confirmed atorvastatin 20 mg tablet 20 mg PO DAILY 06/29/20 05/23/23 insulin glargine-yfgn 100 unit/mL 66 unit subcut DAILY 09/09/22 05/23/23 (3 mL) subcutaneous pen (Semglee (insulin glargine-yfgn) Pen) gabapentin 300 mg capsule 300 mg PO BEDTIME 12/27/22 05/23/23 ferrous sulfate 325 mg (65 mg 325 mg PO DAILY 03/26/23 05/23/23 iron) tablet hydroxyzine HCl 50 mg tablet 50 mg PO BEDTIME PRN anxiety 03/26/23 05/23/23 lactulose 20 gram/30 mL oral 20 g PO TID 03/26/23 05/23/23 solution lidocaine 5 % topical patch 1 patch topical DAILY PRN Pain 03/26/23 05/23/23 menthol 5 % topical patch (Icy Hot 1 patch topical DAILY 03/26/23 05/23/23 (menthol)) mirtazapine 7.5 mg tablet 7.5 mg PO BEDTIME 03/26/23 05/23/23 omeprazole 20 mg capsule,delayed 20 mg PO DAILY@0630 03/26/23 05/23/23 release furosemide 20 mg tablet 40 mg PO DAILY 04/12/23 05/23/23 Previous Rx's Medication Instructions Recorded rifaximin 550 mg tablet (Xifaxan) 550 mg PO BID #60 tabs 10/04/22 spironolactone 100 mg tablet 100 mg PO DAILY #30 tabs 04/14/23 (Aldactone) nadolol 20 mg tablet 20 mg PO DAILY 90 days #90 tabs 05/16/23 lidocaine 5 % topical patch 1 patch topical DAILY #15 ea 05/31/23 Allergies Allergy/AdvReac Type Severity Reaction Status Date / Time codeine [CODEINE] Allergy Mild ITCHINESS, Verified 05/31/23 16:47 itching penicillin G Allergy Mild itching Verified 05/31/23 16:47 Review of Systems 2 Review of Systems: All other systems are reviewed and are negative Constitutional: Reports as per HPI and Reports no additional constitutional complaints Eyes: Reports as per HPI and Reports no additional eye complaints Reports system reviewed and no additional complaints, except as documented Cardiovascular: Reports as per HPI and Reports no additional cardiovascular complaints Respiratory: Reports as per HPI and Reports no additional respiratory complaints Gastrointestinal: Reports as per HPI and Reports no additional gastrointestinal complaints Genitourinary: Reports no additional female genitourinary complaints Musculoskeletal: Reports no additional musculoskeletal complaints Skin/Breast: Reports system reviewed and no additional complaints, except as docu Psychiatric: Reports no additional psychiatric complaints Endocrine: Reports no additional endocrine complaints Hematologic/Lymphatic: Reports no additional hematologic/lymphatic complaints Allergic/Immunologic: Reports no additional allergic/immunologic complaints Reports system reviewed and no additional complaints, except as documented and Reports Abnormal speech present [facility] Past Medical History Medical History Mood disorder Anemia Coronary artery disease Chronic hyponatremia Diabetes mellitus Cirrhosis of liver with ascites Chronic liver failure S/P abdominal paracentesis Black stools Normocytic anemia Abdominal ascites Cirrhosis of liver Varices, esophageal History of alcohol abuse Diabetes Elevated cholesterol Myocardial infarction HTN (hypertension) Hepatitis Cirrhosis Surgical History Hx of hand surgery History of PTCA History of esophagogastroduodenoscopy (EGD) H/O colonoscopy Social History Social History Household Members: None Housing: House Do you presently have visiting nurse or other home services: No Unable to assess alcohol history related to: Unable to respond Alcohol intake: former 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 Tobacco Use Status: Former Tobacco user Quit Date: 2013 Tobacco use type: Cigarette Smoked in Last 30 Days: No Second Hand Smoke Exposure: No Use of substances other than those prescribed or required for medical reasons: Unable to respond Advance Directives: Yes Advance Directives on File: Yes Advance Directives Date on File: 09/13/22 service: No Current occupational status: disabled Cognitive needs: No Hearing needs: No Vision needs: No Physical Exam ED Vital Signs: Vital Signs - 24 hr 06/02/23 13:38 06/02/23 16:00 Temperature 97.0 F Pulse Rate 64 63 Respiratory Rate 16 16 Blood Pressure 123/72 106/69 Pulse Oximetry 97 97 Oxygen Delivery Method Room Air Room Air BMI result Body Mass Index 24.9 Vital signs have been reviewed and appear to be correct. Blood pressure elevated. Heart rate normal. Respiratory rate normal. Temperature normal. Oxygen saturation normal. Appearance: Alert. Disoriented. No acute distress. Head: Normal external exam. Normocephalic. Atraumatic. No Kyle signs noted. No raccoon eyes noted Eyes: PERRLA. EOMI. Conjunctiva and sclera normal. Eyelids normal. ENT: TM's Normal. Pharynx normal. Uvula midline. Moist mucous membranes. No trismus noted. No drooling noted. No muffled voice noted. Neck: Normal inspection. Neck supple. FROM. No adenopathy. Thyroid Normal. No meningeal signs. No neck mass noted. CVS: Normal heart rate and rhythm. Heart sound normal. No murmurs noted. Pulses normal throughout. Respiratory: No respiratory distress. Painless inspiration. Breath sounds normal. No wheezes/rales/rhonchi noted. Chest nontender. No accessory muscle usage noted or decreased air movement noted. Abdomen: Distended, mild diffuse tenderness with no rebound tenderness, no guarding. Bowel sounds normal in all 4 quadrants. No distention noted. No organomegaly noted. No visible injury noted. Back: No CVA tenderness. Full range of motion noted. Skin: Skin warm and dry. Normal skin color. Normal skin turgor. No rashes/lesions/lacerations noted. Extremities: No lower extremity edema. Extremities exhibit normal range of motion. Extremities nontender. Neuro: Disoriented. Cranial nerve exam: II-XII are grossly intact No motor deficit. No sensory deficit. Reflexes normal. Course Reevaluation(s) Reevaluation #1: 58-year-old male with metabolic encephalopathy. 1. Diagnostic paracentesis in the ED to rule out SBP patient will be receiving a dose of prophylactic ceftriaxone until cultures come back. 2. Negative head CT intracranial pathology. 3. Hyperammonemia will start lactulose MA. 4. Will admit to the medical service. Time: 18:29 Medications Administered Discontinued Medications Generic Name Dose Route Start Last Admin Trade Name Freq PRN Reason Stop Dose Admin Albumin Human 100 mls @ 100 mls/hr 06/02/23 16:05 06/02/23 18:07 Kedbumin 25 % IV 06/02/23 17:04 100 mls/hr ONCE ONE Administration Procedures Paracentesis Time Out Performed: Yes Indication: possible spontaneous bacterial peritonitis Procedure: diagnostic paracentesis Location: LLQ Bedside Ultrasound Used: yes, Ascites confirmed and location marked Amount of fluid obtained (mL): 4,000 Fluid: clear Patient Tolerated Procedure: no complications Medical Decision Making Differential Diagnosis Differential Diagnoses: The differential diagnosis associated with the presentation includes (SBP, intracranial bleed, pneumonia, pneumothorax, acute on chronic liver failure, hyperammonemia, electrolyte abnormality, dehydration, severe anemia.) Admission/Observation Consideration of admission/observation: Escalation of care including admission/observation considered Consult Healthcare Provider Management of the patient was discussed with: Hospitalist (Dr. Fuller) Lab Data MDM Lab Attestation statement: I reviewed the patient's lab results. 06/02/23 14:35 06/02/23 14:35 Labs: Lab Results 06/02/23 06/02/23 06/02/23 Range/Units 14:35 15:19 17:51 WBC 4.7 L (4.8-10.8) X10*3/uL RBC 4.15 L (4.60-5.80) X10*6/uL Hgb 12.2 L (14.0-18.0) g/dl Hct 35.1 L (42.0-52.0) % MCV 84.6 (80.0-98.0) fL MCH 29.4 (27.0-33.0) pg MCHC 34.8 (31.0-36.0) g/dl RDW 15.0 (11.0-16.0) % Plt Count 99 L D (160-400) X10*3/uL MPV 10.6 (9.4-12.4) fL Absolute Nucleated RBC 0.000 (0.0-0.012) X10*3/uL Nucleated RBC % (auto) 0.0 (0.0-0.2) /100WBC PT 16.5 H (11.1-13.3) SEC INR 1.4 H (0.9-1.1) APTT 34.4 (26.0-36.4) SEC Sodium 136 (135-145) mmol/L Potassium 4.2 (3.3-5.1) mmol/L Chloride 100 (96-108) mmol/L Carbon Dioxide 27 (22-29) mmol/L Anion Gap 13 (12-20) BUN 21 H (9-16) mg/dL Creatinine 1.54 H (0.5-1.4) mg/dL Estim Creat Clear Calc 44.3 Estimated GFR 46 Random Glucose 268 H (60-115) mg/dL Calcium 8.5 (8.4-10.2) mg/dL Total Bilirubin 2.3 H (0.0-1.0) mg/dL AST 85 H (5-37) U/L ALT 45 H (0-40) U/L Alkaline Phosphatase 320 H (39-117) U/L Ammonia 73 H (13-55) umol/L Total Protein 6.5 (6.5-8.0) g/dL Albumin 2.0 L (3.5-5.0) g/dL Urine Color Dark Yellow Urine Appearance Clear Urine pH 5.0 (5.0-9.0) Ur Specific [place] 1.020 (1.005-1.025) Urine Protein Negative (Neg-Trace) mg/dL Urine Glucose (UA) 500 H (Negative) mg/dL Urine Ketones Negative (Negative) mg/dL Urine Blood Negative (Negative) Urine Nitrite Negative (Negative) Ur Leukocyte Esterase Negative (Negative) Ethyl Alcohol < 10 mg/dL COVID-19 (SHAZIA) Negative (Negative) COVID-19 Clin Com See Note Influenza Type A (ERIC) Negative (Negative) Influenza Type B (ERIC) Negative (Negative) Influenza A & B Note See Note Independent Interpretation I performed an independent interpretation of an: Plain X-Ray (Chest: No acute intrathoracic pathology.) and CT Scan (Head: No acute intracranial pathology.) Radiology Impression Discussion of test interpretation with radiology: I have reviewed the radiologist's reading. Critical Care Time Critical Care Time Critical Care Time: Yes Total Critical Care Time: 45 Attestation: I spent 60 minutes providing critical care service to the patient, this including time spent at the bedside to evaluate the patient, reassess the patient, monitoring vital signs, review labs, and radiographic studies, counseling the patient/family, discussing the case with consultants, disposition the patient. Discharge Plan Discharge Clinical Impression: Acute hepatic encephalopathy, Hyperammonemia, SBP (spontaneous bacterial peritonitis), Acute alteration in mental status Patient Disposition: Admitted As Inpatient Prescriptions: No Action atorvastatin 20 mg tablet 20 mg PO DAILY insulin glargine-yfgn [Semglee(insulin glarg-yfgn)Pen] 100 unit/mL (3 mL) insulin pen 66 unit subcut DAILY furosemide 20 mg tablet 40 mg PO DAILY spironolactone [Aldactone] 100 mg tablet 100 mg PO DAILY Qty: 30 0RF Xifaxan 550 mg Tablet 550 mg PO BID Qty: 60 0RF gabapentin 300 mg capsule 300 mg PO BEDTIME hydroxyzine HCl 50 mg tablet 50 mg PO BEDTIME PRN (Reason: anxiety) lidocaine 5 % adhesive patch,medicated 1 patch topical DAILY PRN (Reason: Pain) omeprazole 20 mg capsule,delayed release(DR/EC) 20 mg PO DAILY@0630 mirtazapine 7.5 mg tablet 7.5 mg PO BEDTIME lactulose 20 gram/30 mL solution 20 g PO TID Icy Hot (menthol) 5 % Adhesive Patch,Medicated 1 patch TOPICAL DAILY ferrous sulfate 325 mg (65 mg iron) tablet 325 mg PO DAILY lidocaine 5 % adhesive patch,medicated 1 patch topical DAILY Qty: 15 0RF Rx Instructions: leave on most painful area for up to 12 hrs nadolol 20 mg tablet 20 mg PO DAILY 90 Days Qty: 90 1RF
[2023-06-02 18:03] LABS: INTERNATIONAL NORM RATIO 1.4 (0.9-1.1); Prothrombin Time 16.5 SEC (11.1-13.3)
[2023-06-02 18:06] LABS: Partial Thromboplastin Time 34.4 SEC (26.0-36.4)
[2023-06-02] MEDS: Albumin Human 25 % 100 ML IV (18:07)
--- NOTE | 2023-06-02 18:49 | PC.NURSE ---
pt had a bedside parenthesis, tolerated well
[2023-06-02 19:37] LABS: MN% 95.5 %; PMN% 4.5 %; WBC Peritoneal Fluid 0.029 X10*3/uL
[2023-06-02] MEDS: Lactulose 320 GM/480 ML SOLUTION 200 GM PR (19:47)
[2023-06-02 20:10] VITALS: BP 99/59; PULSE 63; RESP 14; O2SAT 96
--- NOTE | 2023-06-02 20:10 | PC.NURSE ---
lactulose pr administered. pt became agitated/more responsive. pt able to have large bm. linen changed pt cleaned and repositioned. vss. pt now sleeping resp even and unlabored. awaiting admission orders. nsr on monitor. at bedside.
--- NOTE | 2023-06-02 20:32 | PM.IMHP ---
History of Present Illness Date of Service: 06/02/23 Attending physician on admission: Fan Mcnamara Chief Complaint: Pt found unresponsive Pt is a 58-year-old male with a PMH significant for?alcoholic cirrhosis complicated by varices, ascites, and recurrent encephalopathy, hepatitis C s/p treatment, insulin-dependent diabetes type 2, and CAD s/p stent who presents to the ED after family found patient unresponsive in bed this morning. Patient is currently somnolent but arousable to verbal stimuli, but only answering ?OK? to all inquiries and not oriented to self. HPI thus obtained from chart and provider review, as well as family who was at bedside. The patient was apparently in his normal state of health last night and seen taking his nighttime medications, but family could not reach him this morning by phone. When they stopped to check on him they found him unresponsive in the bed and called EMS. Patient has a long history of similar presentations to the hospital with last admissions on 04/12-04/14 and from 03/26-03/29. Patient lives alone but is monitored with cameras by his family out of concern for medication compliance, especially with lactulose. Family also report patient has now been taken off the liver transplant list d/t his deconditioning. He has recurrent ascites requiring q2 week large volume paracentesis, last on 05/23/2023. Pt was tapped today in the ED where 4L of clear fluid was drained. In the ED pt with soft BP of 99/59, otherwise vitals WNL. Labs were significant for creatinine 1.54, glucose 268, total bilirubin 2.3, AST 85, ALT 45, alk-phos 320, ammonia 73, albumin 2.0. UA negative for UTI. Alcohol level undetectable. Negative for COVID, influenza types A and B. CXR showed hypoexpanded lungs with left basilar atelectasis. CT?of head found no acute intracranial pathology. EKG demonstrated normal sinus rhythm without evidence of significant ST elevations or depressions. Pt was treated with albumin, lactulose 200 g per rectum, and prophylactic ceftriaxone for possible SBP. Pt will be admitted to the hospital for treatment of acute hepatic encephalopathy in the setting of decompensated alcoholic cirrhosis. Review of Systems Review of Systems: Unable to obtain due to patient's mentation [facility] Medical History Mood disorder Anemia Coronary artery disease Chronic hyponatremia Diabetes mellitus Cirrhosis of liver with ascites Chronic liver failure S/P abdominal paracentesis Black stools Normocytic anemia Abdominal ascites Cirrhosis of liver Varices, esophageal History of alcohol abuse Diabetes Elevated cholesterol Myocardial infarction HTN (hypertension) Hepatitis Cirrhosis Surgical History Hx of hand surgery History of PTCA History of esophagogastroduodenoscopy (EGD) H/O colonoscopy Social History Household Members: None Housing: House Do you presently have visiting nurse or other home services: No Unable to assess alcohol history related to: Unable to respond Alcohol intake: former 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 Patient Tobacco Use Status: Former Tobacco user Quit Date: 2013 Tobacco use type: Cigarette Second Hand Smoke Exposure: No Advance Directives Date on File: 09/13/22 service: No Current occupational status: disabled Cognitive needs: No Hearing needs: No Vision needs: No Meds Allergies Allergy/AdvReac Type Severity Reaction Status Date / Time codeine [CODEINE] Allergy Mild ITCHINESS, Verified 05/31/23 16:47 itching penicillin G Allergy Mild itching Verified 05/31/23 16:47 Home Medications Medication Instructions Recorded Confirmed Last Taken Type atorvastatin 20 mg tablet 20 mg PO DAILY 06/29/20 05/23/23 04/11/23 History insulin glargine-yfgn 100 unit/mL 66 unit subcut DAILY 09/09/22 05/23/23 04/11/23 History (3 mL) subcutaneous pen (Semglee (insulin glargine-yfgn) Pen) gabapentin 300 mg capsule 300 mg PO BEDTIME 12/27/22 05/23/23 04/11/23 History ferrous sulfate 325 mg (65 mg 325 mg PO DAILY 03/26/23 05/23/23 04/11/23 History iron) tablet hydroxyzine HCl 50 mg tablet 50 mg PO BEDTIME PRN anxiety 03/26/23 05/23/23 Unknown History lactulose 20 gram/30 mL oral 20 g PO TID 03/26/23 05/23/23 04/11/23 History solution lidocaine 5 % topical patch 1 patch topical DAILY PRN Pain 03/26/23 05/23/23 Unknown History menthol 5 % topical patch (Icy Hot 1 patch topical DAILY 03/26/23 05/23/23 04/11/23 History (menthol)) mirtazapine 7.5 mg tablet 7.5 mg PO BEDTIME 03/26/23 05/23/23 04/11/23 History omeprazole 20 mg capsule,delayed 20 mg PO DAILY@0630 03/26/23 05/23/23 04/11/23 History release furosemide 20 mg tablet 40 mg PO DAILY 04/12/23 05/23/23 04/11/23 History Physical Exam Vital Signs and Narrative: Vital Signs: Last Vital Signs Temp 97.0 F 06/02/23 13:38 Pulse 63 06/02/23 20:10 Resp 14 06/02/23 20:10 BP 99/59 L 06/02/23 20:10 Pulse Ox 96 06/02/23 20:10 O2 Del Method Room Air 06/02/23 20:10 BMI result Body Mass Index 24.9 General: Pt somnolent but arousable to verbal stimuli. Confused, answering only yes to all questions, incapable of following commands. In no acute distress Resp: CTA bilaterally CVS: S1, S2, RRR GI: +BS, NT, abdomen soft, no distention Skin: No rash Neuro: Cranial nerves II-XII grossly intact bilaterally. Motor grossly intact bilaterally Extremities: No edema Results Labs 06/02/23 14:35 06/02/23 14:35 Labs: Laboratory Results - last 24 hr 06/02/23 06/02/23 06/02/23 14:35 15:19 17:51 MCV 84.6 MCH 29.4 MCHC 34.8 RDW 15.0 Plt Count 99 L D MPV 10.6 Absolute Nucleated RBC 0.000 Nucleated RBC % (auto) 0.0 PT 16.5 H INR 1.4 H APTT 34.4 Anion Gap 13 Estim Creat Clear Calc 44.3 Estimated GFR 46 Random Glucose 268 H Calcium 8.5 Total Bilirubin 2.3 H AST 85 H ALT 45 H Alkaline Phosphatase 320 H Ammonia 73 H Total Protein 6.5 Albumin 2.0 L Urine Color Dark Yellow Urine Appearance Clear Urine pH 5.0 Ur Specific [place] 1.020 Urine Protein Negative Urine Glucose (UA) 500 H Urine Ketones Negative Urine Blood Negative Urine Nitrite Negative Ur Leukocyte Esterase Negative Ethyl Alcohol < 10 COVID-19 (SHAZIA) Negative COVID-19 Clin Com See Note Influenza Type A (ERIC) Negative Influenza Type B (ERIC) Negative Influenza A & B Note See Note Imaging Radiologist's Impressions: Impressions Head CT 06/02/23 17:14 IMPRESSION: No acute intracranial pathology. Chest X-Ray 06/02/23 19:13 IMPRESSION: Hypoexpanded lungs with left basilar atelectasis. Assessment and Plan (1) Hyperammonemia: Status: Acute (2) Acute hepatic encephalopathy: Status: Acute Plan Pt is a 58-year-old male with a PMH significant for?alcoholic cirrhosis complicated by varices, ascites, and recurrent encephalopathy, hepatitis C s/p treatment, insulin-dependent diabetes type 2, and CAD s/p stent who presents to the ED after family found patient unresponsive in bed this morning. Pt will be admitted to the hospital for treatment of acute hepatic encephalopathy in the setting of decompensated alcoholic cirrhosis. Acute hepatic encephalopathy in the setting of decompensated alcoholic cirrhosis Patient with AMS, confusion, obtunded since this morning, patient with alcoholic cirrhosis, ammonia 73 Pt with hx of medication noncompliance Pt recevied lactulose 200 g pr in ED Will give additional lactulose 200 g pr until improvement in mentation, then switch to p.o. Patient will be made NPO, consider formal speech evaluation for tomorrow if necessary Continue rifaximin, furosemide, and spironolactone once no longer NPO Monitor mentation Question of SBP Suspicion for SBP low: Patient afebrile, abdominal exam benign, no vomiting Will treat empirically with ceftriaxone 1 g qd, started 06/02/2023 Follow peritoneal studies, cultures HTN Continue home meds once no longer NPO CAD/HLD Continue statin once no longer NPO GERD Continue PPI once no longer NPO Insulin-dependent diabetes type [address] sliding scale insulin Will hold Lantus while NPO Diabetic diet once no longer NPO Mood disorder Continue mirtazapine once no longer NPO Full Code Attending:?Dr. Mcnamara DVT Prophylaxis: Lovenox Pt will require a hospitalization of at least two nights for treatment of?acute hepatic encephalopathy in the setting of decompensated alcoholic cirrhosis. Pt will require IV and IA meds and close monitoring. Quality Stroke Does the patient have a stroke diagnosis?: No VTE Prior VTE?: No VTE Risk Level:: Medical - moderate - high VTE Device Contraindication: Treatment Not Indicated VTE Drug Contraindication: N/A - Med Ordered
[2023-06-02 20:34] LABS: BF Shift QC OK YES; Lymphocyte Peritoneal Fl 35 %; Monocytes Peritoneal Fl 49 %; Other Peritioneal Fl 16 %; RBC Peritoneal Fluid < 0.002 X10*6/uL
[2023-06-02 22:22] VITALS: BP 103/66; PULSE 68; RESP 14; TEMP 36.8; O2SAT 96
[2023-06-02] MEDS: cefTRIAXone sodium 1 GM in 0.9 % Sodium Chloride 50 ML IV (22:40)
[2023-06-02] MEDS: Enoxaparin Sodium 40 MG/0.4 ML SYRINGE SUBCUT (22:40)
[2023-06-02 23:00] LABS: pH Peritoneal Fluid 7.65
[2023-06-02 23:37] VITALS: BP 98/56; PULSE 65; RESP 16; TEMP 36; O2SAT 98
[2023-06-02 23:39] VITALS: BMI 22.4
[2023-06-03] MEDS: 0.9 % Sodium Chloride Flush 3 ML SYRINGE IVFLUSH ×4 (00:12→20:36)
[2023-06-03 03:51] VITALS: BP 101/54; PULSE 69; RESP 14; TEMP 36; O2SAT 94
[2023-06-03 06:22] LABS: Ammonia 49 umol/L (13-55)
[2023-06-03 06:59] LABS: Anion Gap 14 (12-20); Blood Urea Nitrogen 21 mg/dL (9-16); Calcium 8.7 mg/dL (8.4-10.2); Carbon Dioxide 23 mmol/L (22-29); Chloride 104 mmol/L (96-108); Creatinine Clr Calc Pharmacy 59.5; Estimated Glomerular Filt Rate > 60; Glucose Random 214 mg/dL (60-115); Potassium 3.6 mmol/L (3.3-5.1); Sodium 137 mmol/L (135-145)
[2023-06-03 07:31] LABS: Glucose, Whole Blood 194 mg/dL (60-115)
[2023-06-03 07:35] LABS: Glucose, Whole Blood 212 mg/dL (60-115)
[2023-06-03 07:37] VITALS: BP 110/59; PULSE 72; RESP 16; TEMP 36.8; O2SAT 97
--- NOTE | 2023-06-03 08:12 | PHA.MEDREC ---
Pharmacy Consult ? Medication Reconciliation Pharmacy has completed the medication reconciliation. Spoke to patient, patient seemed to be hesitant with recalling his medications. However he was able to name doses and frequencies without being prompted. OF NOTE: insulin was left unconfirmed. when I asked the patient is he takes insulin he stated he does but could not recall the name of the insulin nor the dose or frequency. I suspect non compliance; ozempic last picked up for 28 day supply on 01/20/23 and semglee last picked up 10/08/22. I left them unconfirmed. Will let provider know.
[2023-06-03 10:21] LABS: Hematocrit 37.6 % (42.0-52.0); Mean Corpuscular HGB Conc 34.6 g/dl (31.0-36.0); Mean Corpuscular Hemoglobin 29.4 pg (27.0-33.0); Mean Corpuscular Volume 85.1 fL (80.0-98.0); Mean Platelet Volume 10.4 fL (9.4-12.4); Platelet Count 85 X10*3/uL (160-400); Red Blood Count 4.42 X10*6/uL (4.60-5.80); Red Cell Distribution Width 15.1 % (11.0-16.0); White Blood Count 4.4 X10*3/uL (4.8-10.8)
[2023-06-03] MEDS: Lactulose 20 GM/30 ML SOLUTION 30 GM PO ×3 (10:45→20:36)
[2023-06-03] MEDS: Pantoprazole Sodium 40 MG/10 ML VIAL IVPUSH (10:45)
--- NOTE | 2023-06-03 11:06 | MHC.SL.SWA ---
Speech Pathologist Impression: Risk of Aspiration Due to: None Dysphasia Diet Status: Liquid Consistency and Strategies for Safe Swallow: Liquid Intake Recommendation: Thin Liquid Intake Strategies: Unrestricted Solid Food Consistency: Dietary Recommendations: Regular Additional Modifications to Solid Foods: Oral Medication Intake: Whole with Liquid Please contact the pharmacy regarding appropriate crushable or liquid drug formulations that are available whenever modified delivery is recommended. Compensatory Strategies and Precautions to be Taken for Safe Swallow: Sitting Upright (90 deg) Supervision While Eating and Drinking for Safe Swallow: None Needed Foods to Avoid: N/a Swallowing Recommended Treatments: Recommendation for Speech: NA:Typical Evaluation Comment: Recommend upgrade to Regular Solids and Thin Liquids. Medications Whole with Thin Liquids. SUPERVISORY FORESTER intervention not indicated based on performance and no history of Dysphagia. Please re-consult if status changes. Timeline to reassess: PRN Licensed Guide Clinican/Clinical Fellow: No Supervisory Statement: I have reviewed and agree with the student/clinical fellow's documentation: N/A Speech Language Pathologist: Rodriguez Estrada M.A., CCC-SUPERVISORY FORESTER
[2023-06-03 11:24] LABS: Glucose, Whole Blood 261 mg/dL (60-115)
[2023-06-03 12:43] LABS: Alanine Aminotransferase 34 U/L (0-40); Albumin Level 2.2 g/dL (3.5-5.0); Alkaline Phosphatase 264 U/L (39-117); Aspartate Amino Transferase 59 U/L (5-37); Bilirubin Total 2.4 mg/dL (0.0-1.0); Total Protein 6.1 g/dL (6.5-8.0)
[2023-06-03] MEDS: Insulin Lispro 100 UNIT/ML 3 ML VIAL SUBCUT ×3 (13:04→21:05)
--- NOTE | 2023-06-03 14:06 | P.PNIM_ITS ---
Subjective Subjective Date of Service: 06/03/23 Interval History: no fever no abd pain paasing bm no nausea or vomiting or any bartolo bleeding Review of Systems mental status seems improving Review of Systems: Yes all other systems are reviewed and are negative Physical Exam 2 Vital Signs: Vital Signs: Last Vital Signs Temp 98.2 F 06/03/23 07:37 Pulse 72 06/03/23 07:37 Resp 16 06/03/23 07:37 BP 110/59 L 06/03/23 07:37 Pulse Ox 97 06/03/23 07:37 O2 Del Method Room Air 06/03/23 07:37 BMI result Body Mass Index 22.4 Appearance: Alert.? Oriented X1,awake .? not in distress.?follows simple commands. cvs: rrr, [id number] . res: clear to auscultation ,no rhonchii or wheezing abd: no rebound or guarding ,nt, bs present. ext pulses present , no cyanosis. neuro: nonfocal. Objective Data Active Medications Acetaminophen (Acetaminophen Supp 650 Mg Supp.Rect) 650 mg ID Q6H PRN PRN Reason: Pain, Mild (Pain Scale 1-3) Dextrose (Dextrose 50 % 25 Gm/50 Ml Syringe) 25 gm IVPUSH Q15M PRN; Protocol PRN Reason: per Hypoglycemia Standing Ord. Enoxaparin Sodium (Enoxaparin Sodium 40 Mg/0.4 Ml Syringe) 40 mg SUBCUT Q24H [facility] Last Admin: 06/02/23 22:40 Dose: 40 mg Documented By: RENÉE Glucose (Glucose Gel 15 Gm Gel..Gram.) 15 gm PO Q15M PRN; Protocol PRN Reason: per Hypoglycemia Standing Ord. Ceftriaxone Sodium 1 gm/ (Sodium Chloride) 50 mls @ 100 mls/hr IV Q24H [facility] Last Infusion: 06/02/23 23:37 Dose: Infused Documented By: OZORALB Insulin Human Lispro (Insulin Lispro 100 Unit/Ml 3 Ml Vial) 0 unit SUBCUT QIDACHS [facility]; Protocol Last Admin: 06/03/23 13:04 Dose: 6 unit Documented By: COTEMA Lactulose (Lactulose 20 Gm/30 Ml Solution) 30 gm PO TID [facility] Last Admin: 06/03/23 10:45 Dose: 30 gm Documented By: COTEMA Lidocaine (Lidocaine 4 % Patch Adh..Patch) 1 patch TRANSDERMA DAILY [facility] Lidocaine (Lidocaine 4 % Patch Adh..Patch) 1 patch TRANSDERMA DAILY PRN PRN Reason: Pain Ondansetron HCl (Ondansetron Hcl 4 Mg/2 Ml Vial) 4 mg IVPUSH Q8H PRN PRN Reason: Nausea and Vomiting Pantoprazole Sodium (Pantoprazole Sodium 40 Mg/10 Ml Vial) 40 mg IVPUSH BID@0630,1630 [facility] Last Admin: 06/03/23 10:45 Dose: 40 mg Documented By: COTEMA Sodium Chloride (0.9 % Sodium Chloride Flush 3 Ml Syringe) 3 ml IVFLUSH QSHIFT [facility] Last Admin: 06/03/23 07:25 Dose: 3 ml Documented By: COTFREDRICK Labs 06/03/23 09:38 06/03/23 06:05 Labs: Laboratory Results - last 24 hr 06/02/23 06/02/23 06/02/23 14:35 15:19 17:51 MCV 84.6 MCH 29.4 MCHC 34.8 RDW 15.0 Plt Count 99 L D MPV 10.6 Absolute Nucleated RBC 0.000 Nucleated RBC % (auto) 0.0 PT 16.5 H INR 1.4 H APTT 34.4 Anion Gap 13 Estim Creat Clear Calc 44.3 Estimated GFR 46 POC Glucose Random Glucose 268 H Calcium 8.5 Total Bilirubin 2.3 H Direct Bilirubin AST 85 H ALT 45 H Alkaline Phosphatase 320 H Ammonia 73 H Total Protein 6.5 Albumin 2.0 L Urine Color Dark Yellow Urine Appearance Clear Urine pH 5.0 Ur Specific Lesage 1.020 Urine Protein Negative Urine Glucose (UA) 500 H Urine Ketones Negative Urine Blood Negative Urine Nitrite Negative Ur Leukocyte Esterase Negative Peritoneal pH Peritoneal WBC Peritoneal RBC Periton Lymphocytes Peritoneal Monocytes Peritoneal Other Cells Ethyl Alcohol < 10 COVID-19 (SHAZIA) Negative COVID-19 Clin Com See Note Influenza Type A (ERIC) Negative Influenza Type B (ERIC) Negative Influenza A & B Note See Note 06/02/23 06/02/23 06/03/23 19:08 20:50 06:05 MCV MCH MCHC RDW Plt Count MPV Absolute Nucleated RBC Nucleated RBC % (auto) PT INR APTT Anion Gap 14 Estim Creat Clear Calc 59.5 Estimated GFR > 60 POC Glucose Random Glucose 214 H Calcium 8.7 Total Bilirubin 2.4 H Direct Bilirubin 1.0 H AST 59 H ALT 34 Alkaline Phosphatase 264 H Ammonia 49 Total Protein 6.1 L Albumin 2.2 L Urine Color Urine Appearance Urine pH Ur Specific Lesage Urine Protein Urine Glucose (UA) Urine Ketones Urine Blood Urine Nitrite Ur Leukocyte Esterase Peritoneal pH 7.65 Peritoneal WBC 0.029 Peritoneal RBC < 0.002 Periton Lymphocytes 35 Peritoneal Monocytes 49 Peritoneal Other Cells 16 Ethyl Alcohol COVID-19 ([facility]ZIA) COVID-19 Clin Com Influenza Type A (ERIC) Influenza Type B (ERIC) Influenza A & B Note 06/03/23 06/03/23 06/03/23 07:12 07:22 09:38 MCV 85.1 MCH 29.4 MCHC 34.6 RDW 15.1 Plt Count 85 L MPV 10.4 Absolute Nucleated RBC 0.000 Nucleated RBC % (auto) 0.0 PT INR APTT Anion Gap Estim Creat Clear Calc Estimated GFR POC Glucose 194 H 212 H Random Glucose Calcium Total Bilirubin Direct Bilirubin AST ALT Alkaline Phosphatase Ammonia Total Protein Albumin Urine Color Urine Appearance Urine pH Ur Specific Lesage Urine Protein Urine Glucose (UA) Urine Ketones Urine Blood Urine Nitrite Ur Leukocyte Esterase Peritoneal pH Peritoneal WBC Peritoneal RBC Periton Lymphocytes Peritoneal Monocytes Peritoneal Other Cells Ethyl Alcohol COVID-19 ([facility]ZIA) COVID-19 Clin Com Influenza Type A (ERIC) Influenza Type B (ERIC) Influenza A & B Note 06/03/23 11:13 MCV MCH MCHC RDW Plt Count MPV Absolute Nucleated RBC Nucleated RBC % (auto) PT INR APTT Anion Gap Estim Creat Clear Calc Estimated GFR POC Glucose 261 H Random Glucose Calcium Total Bilirubin Direct Bilirubin AST ALT Alkaline Phosphatase Ammonia Total Protein Albumin Urine Color Urine Appearance Urine pH Ur Specific Lesage Urine Protein Urine Glucose (UA) Urine Ketones Urine Blood Urine Nitrite Ur Leukocyte Esterase Peritoneal pH Peritoneal WBC Peritoneal RBC Periton Lymphocytes Peritoneal Monocytes Peritoneal Other Cells Ethyl Alcohol COVID-19 ([facility]ZIA) COVID-19 Clin Com Influenza Type A (ERIC) Influenza Type B (ERIC) Influenza A & B Note Microbiology Microbiology Results: Microbiology 06/02/23 19:08 Gram Stain - Final Ascites Fluid Assessment and Plan (1) Acute alteration in mental status: Status: Acute (2) Hyperammonemia: Status: Acute (3) Acute hepatic encephalopathy: Status: Acute Assessment and Plan: Day 2: 58-year-old male with a PMH significant for?alcoholic cirrhosis complicated by varices, ascites, and recurrent encephalopathy, hepatitis C s/p treatment, insulin-dependent diabetes type 2, and CAD s/p stent who presents to the ED after family found patient unresponsive in bed this morning. Pt will be admitted to the hospital for treatment of acute hepatic encephalopathy in the setting of decompensated alcoholic cirrhosis. Acute hepatic encephalopathy in the setting of decompensated alcoholic cirrhosis Patient with AMS, confusion, obtunded since this morning, patient with alcoholic cirrhosis, Lfts; ch elevated , ammonia 73-49,Pt with hx of medication noncompliance head ct : negative ascitis tap- results pending cxr -mild atelactasis Pt recevied lactulose 200 g pr in ED plan: in ed:4L of clear fluid was drained mental status improving seen by swallow-advanced diet. Continue po lactlose , rifaximin,albumin ,,moniter for 3-4 bm's(goal),Monitor mentation. hold furosemide, and spironolactone for today ,tomorrow start back diuretics , Gi eval Question of SBP Suspicion for SBP low: Patient afebrile, abdominal exam benign, no vomiting s/p tap Will treat empirically with ceftriaxone 1 g qd, started 06/02/2023 Follow peritoneal studies, cultures HTN Continue home meds . CAD/HLD Continue statin GERD Continue PPI Insulin-dependent diabetes type 2 fs with sliding scale insulin Mood disorder Continue mirtazapine once no longer NPO Full Code DVT Prophylaxis: Lovenox ongoing hospitalization of need : for treatment of?acute hepatic encephalopathy in the setting of decompensated alcoholic cirrhosis-need mental status monitering ,lactulose , Pt will require IV and ID meds and close monitoring, expert consulattion Family updated in detail at bedside. Quality Stroke Does the patient have a stroke diagnosis?: No VTE Prior VTE?: No VTE Risk Level:: Medical - moderate - high VTE Device Contraindication: Treatment Not Indicated VTE Drug Contraindication: N/A - Med Ordered
[2023-06-03 15:12] VITALS: BP 101/57; PULSE 70; RESP 16; TEMP 36.1; O2SAT 99
[2023-06-03] MEDS: Omeprazole 20 MG CAPSULE.DR PO (15:13)
[2023-06-03] MEDS: rifAXIMin 550 MG TABLET PO ×2 (15:13→20:36)
[2023-06-03] MEDS: nadoloL 20 MG TABLET PO (15:13)
--- NOTE | 2023-06-03 16:14 | MHC.CM.PN ---
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
[2023-06-03 16:15] LABS: Glucose, Whole Blood 236 mg/dL (60-115)
[2023-06-03 19:29] VITALS: BP 109/60; PULSE 75; RESP 17; TEMP 36.4; O2SAT 98
--- NOTE | 2023-06-03 19:31 | PM.EVENT ---
Event Note Date of Service: 06/03/23 Event Note: GI Consult-Full note dictated-Patient well known to me from office visits Imp: Cirrhosis, ascites, history of esophageal varices, and resolving hepatic encephalopathy. He is presently alert, oriented x 3, and answering questions appropriately. He currently seems to be back at his baseline. His ascites was negative for SBP by cell count. There has been no GI bleeding. Rec: Continue lactulose and Xifaxan, continue diuretics but follow renal function and chemistries closely, diet as tolerated, and continue Beta-samy and PPI. D/C Lovenox due to increased risk of GI bleeding and D/C antibiotics since ascites cell count was negative for SBP. If stable tomorrow he should be able to be discharged. My office has him tentatively scheduled for an outpatient large volume paracentesis for early next week. Left message on daughter, GUADALUPE Davis. Thanks. Time Spent With Patient Time: Total time managing care of this patient today ____ minutes.
[2023-06-03] MEDS: Morphine Sulfate 2 MG/ML CARTRIDGE IVPUSH (20:35)
[2023-06-03] MEDS: Mirtazapine 7.5 MG TABLET PO (20:35)
[2023-06-03] MEDS: Gabapentin 300 MG CAPSULE PO (20:36)
[2023-06-03 20:44] LABS: Glucose, Whole Blood 266 mg/dL (60-115)
--- NOTE | 2023-06-04 02:22 | CONS_ITS ---
DATE OF SERVICE: 06/03/2023 REASON FOR CONSULTATION: Cirrhosis, ascites, and hepatic encephalopathy. HISTORY OF PRESENT ILLNESS: The patient is a 58-year-old male, well known to me with an underlying history of cirrhosis in relation to previous alcohol use and previous hepatitis C. The patient has had this for a long-standing time period and has developed complications including ascites, hepatic encephalopathy, and esophageal varices. He has been evaluated at [facility] and ultimately was deemed not a candidate for transplant due to some underlying cardiac disease. His most recent course has been complicated by episodes of hepatic encephalopathy that come on suddenly, but then resolve very quickly as well. This occurs despite his compliance with lactulose and Xifaxan. He has had numerous paracenteses including on this admission, which have been negative for any sign of spontaneous bacterial peritonitis. He has been on diuretics at home, but the ascites has been somewhat refractory and due to the encephalopathy he is not a candidate for a TIPS. On this most recent admission, he came in quite obtunded, but quickly improved. There have been no signs of GI bleeding. The patient tonight was able to recognize me easily and carry on a full conversation with me. He was oriented to person, place, and time. He answered all questions appropriately. MEDICATIONS: At home include atorvastatin, iron, furosemide 40 mg daily, gabapentin, hydroxyzine, lidocaine patch, lactulose, spironolactone 100 mg daily, omeprazole, nadolol, and insulin. PAST MEDICAL HISTORY: Insulin-dependent diabetes mellitus. Hypertension. Cirrhosis in relation to previous hepatitis C that was successfully treated and chronic alcohol abuse, from which he has been sober now for many years. He has a history of colon polyps. Hyperlipidemia. Coronary artery disease with previous NV and coronary artery stent placement. Nonbleeding esophageal varices. The varices have been banded. PAST SURGICAL HISTORY: His surgeries include right hand and elbow surgery. FAMILY HISTORY: Mother had colon cancer. There is no family history of liver disease. 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 He does not smoke. He has not used alcohol for about 10 years now. He is single. REVIEW OF SYSTEMS: CONSTITUTIONAL: When not encephalopathic, he tends to have a good appetite, although does have fatigue. CARDIAC: No chest pain. PULMONARY: No coughing nor hemoptysis. GI: As above. NEUROLOGIC: No headache or seizures. URINARY: No dysuria. No hematuria. PHYSICAL EXAMINATION: GENERAL: The patient is currently alert and answers questions appropriately. He is oriented to person, place, and time. SKIN: Warm and dry. Anicteric sclerae. NECK: Supple. CHEST: Clear. CARDIAC: Normal S1, S2. ABDOMEN: Soft, but distended with ascites. There is no focal tenderness. He has a soft umbilical hernia. There is no mass. EXTREMITIES: Without edema. LABORATORY AND DIAGNOSTIC DATA: White count 4.4, hemoglobin 13.0, platelets 85,000. PT 16.5, INR 1.4. Sodium 137, potassium 3.6, chloride 104, CO2 23, BUN 21, creatinine 1.1. Total bilirubin 2.4, direct bilirubin 1.0, AST 59, ALT 34, alkaline phosphatase 264. Ammonia level 49. Ammonia level on admission was 73. Albumin 2.2. Cell count on his ascites from last evening showed 290 white blood cells, but without any neutrophils. Gram stain is negative for organisms and cultures pending. Head CT was negative for any acute pathology. A chest CT from May 31 described a large amount of ascites, but no pleural effusions. IMPRESSION: The patient is a 58-year-old male with advanced liver disease, who was deemed to not be a candidate for liver transplant recently due to underlying cardiac disease. He has unfortunately progressed to having refractory episodes of ascites and recurrent episodes of hepatic encephalopathy. There has been no sign of gastrointestinal bleeding and studies have been negative for spontaneous bacterial peritonitis. At the present time, his encephalopathy has again quickly improved compared to his presentation yesterday. Again, there was no sign of any infection nor GI bleeding that may have contributed to this. At this point, I will continue supportive care with lactulose, Xifaxan, PPI therapy, beta-samy in regard to his varices, and his diuretics. I do not think he needs any other specific intervention at this time. I noticed he was on Lovenox so I did discontinue that, given his increased risk of bleeding. I have also discontinued his antibiotics given the cell count of the ascites being negative for spontaneous bacterial peritonitis. I will continue his diuretic regimen as long as his chemistries and renal function are stable. If things remain as they presently are, he could hopefully be discharged by tomorrow on his usual outpatient regimen. Of note, he is tentatively scheduled for an outpatient large volume paracentesis for early next week. I did call his daughter, Agatha, and left a message with her voicemail. Thank you for the consultation. MD IMANI Nguyen/MEAGAN / [phone] MTDD
[2023-06-04 04:00] VITALS: BP 102/65; PULSE 73; RESP 16; TEMP 35.9; O2SAT 99
[2023-06-04] MEDS: Morphine Sulfate 2 MG/ML CARTRIDGE IVPUSH (05:16)
[2023-06-04] MEDS: Omeprazole 20 MG CAPSULE.DR PO (05:16)
[2023-06-04 07:06] LABS: Glucose, Whole Blood 267 mg/dL (60-115)
[2023-06-04 07:11] LABS: Hematocrit 32.7 % (42.0-52.0); Hemoglobin 11.3 g/dl (14.0-18.0); Mean Corpuscular HGB Conc 34.6 g/dl (31.0-36.0); Mean Corpuscular Hemoglobin 29.4 pg (27.0-33.0); Mean Corpuscular Volume 85.2 fL (80.0-98.0); Mean Platelet Volume 10.3 fL (9.4-12.4); Red Blood Count 3.84 X10*6/uL (4.60-5.80); Red Cell Distribution Width 14.8 % (11.0-16.0); White Blood Count 4.1 X10*3/uL (4.8-10.8)
[2023-06-04 07:12] LABS: Platelet Count 75 X10*3/uL (160-400)
[2023-06-04 07:20] LABS: Albumin Peritoneal Fluid 0.2; Total Protein Peritoneal Fluid 0.6
[2023-06-04 07:21] LABS: Glucose Peritoneal Fluid 292; LDH Peritoneal Fluid 25
[2023-06-04 07:22] LABS: Amylase Peritoneal Fluid 13; Creatinine Peritoneal Fluid 1.3
[2023-06-04 07:24] LABS: Anion Gap 11 (12-20); Blood Urea Nitrogen 20 mg/dL (9-16); Calcium 8.6 mg/dL (8.4-10.2); Carbon Dioxide 27 mmol/L (22-29); Chloride 100 mmol/L (96-108); Creatinine Clr Calc Pharmacy 47.4; Estimated Glomerular Filt Rate 50; Glucose Random 228 mg/dL (60-115); Potassium 3.9 mmol/L (3.3-5.1); Sodium 134 mmol/L (135-145)
[2023-06-04 07:48] VITALS: BP 98/63; PULSE 74; RESP 17; TEMP 36; O2SAT 98
[2023-06-04] MEDS: nadoloL 20 MG TABLET PO (08:34)
[2023-06-04] MEDS: rifAXIMin 550 MG TABLET PO ×2 (08:34→20:21)
[2023-06-04] MEDS: Ferrous Sulfate 324 MG TABLET.DR PO (08:34)
[2023-06-04] MEDS: Atorvastatin Calcium 20 MG TABLET PO (08:34)
[2023-06-04] MEDS: Lactulose 20 GM/30 ML SOLUTION 30 GM PO ×3 (08:35→20:21)
[2023-06-04] MEDS: Insulin Lispro 100 UNIT/ML 3 ML VIAL SUBCUT ×4 (08:35→20:21)
[2023-06-04] MEDS: 0.9 % Sodium Chloride Flush 3 ML SYRINGE IVFLUSH ×3 (08:35→20:21)
[2023-06-04] MEDS: Lidocaine 4 % Patch ADH..PATCH 1 PATCH TRANSDERMA ×2 (08:35→08:41)
[2023-06-04 11:03] LABS: Glucose, Whole Blood 298 mg/dL (60-115)
[2023-06-04 15:29] VITALS: BP 99/58; PULSE 73; RESP 18; TEMP 36.1; O2SAT 98
[2023-06-04 16:19] LABS: Glucose, Whole Blood 290 mg/dL (60-115)
--- NOTE | 2023-06-04 16:23 | MHC.CM.PN ---
[facility] met with patient today. The patient requested medication management. [facility] OF [facility] is providing home services PT and OT. A request was made for for SN to provide medication management teaching. Patient /family will receive medbox prefill education. DP home with [facility]. Family will provide transportation home.
--- NOTE | 2023-06-04 16:57 | P.PNIM_ITS ---
Subjective Subjective Date of Service: 06/04/23 Interval History: no fever or no abd pain or passing bm no nausea or vomiting or any bartolo bleeding Review of Systems Review of Systems: Yes all other systems are reviewed and are negative Physical Exam 2 Vital Signs: Vital Signs: Last Vital Signs Temp 96.9 F 06/04/23 15:29 Pulse 73 06/04/23 15:29 Resp 18 06/04/23 15:29 BP 99/58 L 06/04/23 15:29 Pulse Ox 98 06/04/23 15:29 O2 Del Method Room Air 06/04/23 15:29 BMI result Body Mass Index 22.4 Appearance: Alert.? Oriented X1,awake .? not in distress.?follows simple commands. cvs: rrr, [id number] . res: clear to auscultation ,no rhonchii or wheezing abd: no rebound or guarding ,nt, bs present. ext pulses present , no cyanosis. neuro: nonfocal. Objective Data Active Medications Acetaminophen (Acetaminophen Supp 650 Mg Supp.Rect) 650 mg MA Q6H PRN PRN Reason: Pain, Mild (Pain Scale 1-3) Atorvastatin Calcium (Atorvastatin Calcium 20 Mg Tablet) 20 mg PO DAILY [facility] Last Admin: 06/04/23 08:34 Dose: 20 mg Documented By: OSIELEMA Dextrose (Dextrose 50 % 25 Gm/50 Ml Syringe) 25 gm IVPUSH Q15M PRN; Protocol PRN Reason: per Hypoglycemia Standing Ord. Ferrous Sulfate (Ferrous Sulfate 324 Mg Tablet.) 324 mg PO DAILY [facility] Last Admin: 06/04/23 08:34 Dose: 324 mg Documented By: FERNANDEZ Gabapentin (Gabapentin 300 Mg Capsule) 300 mg PO BEDTIME [facility] Last Admin: 06/03/23 20:36 Dose: 300 mg Documented By: VIANCAQC Glucose (Glucose Gel 15 Gm Gel..Gram.) 15 gm PO Q15M PRN; Protocol PRN Reason: per Hypoglycemia Standing Ord. Insulin Human Lispro (Insulin Lispro 100 Unit/Ml 3 Ml Vial) 0 unit SUBCUT QIDACHS [facility]; Protocol Last Admin: 06/04/23 11:44 Dose: 6 unit Documented By: OSIELEMA Lactulose (Lactulose 20 Gm/30 Ml Solution) 30 gm PO TID [facility] Last Admin: 06/04/23 14:53 Dose: 30 gm Documented By: HO.COTEMA Lidocaine (Lidocaine 4 % Patch Adh..Patch) 1 patch TRANSDERMA DAILY [facility] Last Admin: 06/04/23 08:35 Dose: 1 patch Documented By: FERNANDEZ Lidocaine (Lidocaine 4 % Patch Adh..Patch) 1 patch TRANSDERMA DAILY PRN PRN Reason: Pain Last Admin: 06/04/23 08:41 Dose: 1 patch Documented By: FERNANDEZ Mirtazapine (Mirtazapine 7.5 Mg Tablet) 7.5 mg PO BEDTIME [facility] Last Admin: 06/03/23 20:35 Dose: 7.5 mg Documented By: LENORE Nadolol (Nadolol 20 Mg Tablet) 20 mg PO DAILY [facility]; Protocol Last Admin: 06/04/23 08:34 Dose: 20 mg Documented By: FERNANDEZ Omeprazole (Omeprazole 20 Mg Capsule.Dr) 20 mg PO DAILY@0630 [facility] Last Admin: 06/04/23 05:16 Dose: 20 mg Documented By: LENORE Ondansetron HCl (Ondansetron Hcl 4 Mg/2 Ml Vial) 4 mg IVPUSH Q8H PRN PRN Reason: Nausea and Vomiting Rifaximin (Rifaximin 550 Mg Tablet) 550 mg PO BID [facility] Last Admin: 06/04/23 08:34 Dose: 550 mg Documented By: FERNANDEZ Sodium Chloride (0.9 % Sodium Chloride Flush 3 Ml Syringe) 3 ml IVFLUSH QSHIFT [facility] Last Admin: 06/04/23 14:53 Dose: 3 ml Documented By: FERNANDEZ Labs 06/04/23 05:59 06/04/23 05:59 Labs: Laboratory Results - last 24 hr 06/02/23 06/03/23 06/04/23 19:08 20:40 05:59 MCV 85.2 MCH 29.4 MCHC 34.6 RDW 14.8 Plt Count 75 L MPV 10.3 Absolute Nucleated RBC 0.000 Nucleated RBC % (auto) 0.0 Anion Gap 11 L Estim Creat Clear Calc 47.4 Estimated GFR 50 POC Glucose 266 H Random Glucose 228 H Calcium 8.6 Peritoneal Creatinine 1.3 Peritoneal Tot Protein 0.6 Peritoneal Albumin 0.2 Peritoneal LDH 25 Peritoneal Glucose 292 Peritoneal Amylase 13 06/04/23 06/04/23 06/04/23 07:02 10:46 16:15 MCV MCH MCHC RDW Plt Count MPV Absolute Nucleated RBC Nucleated RBC % (auto) Anion Gap Estim Creat Clear Calc Estimated GFR POC Glucose 267 H 298 H 290 H Random Glucose Calcium Peritoneal Creatinine Peritoneal Tot Protein Peritoneal Albumin Peritoneal LDH Peritoneal Glucose Peritoneal Amylase Microbiology Microbiology Results: Microbiology 06/02/23 19:08 Gram Stain - Final Ascites Fluid Routine Culture - Preliminary No growth to date. Anaerobic Culture - Preliminary No growth to date. Assessment and Plan (1) Acute alteration in mental status: Status: Acute (2) Hyperammonemia: Status: Acute (3) Acute hepatic encephalopathy: Status: Acute Plan Day 3: 58-year-old male with a PMH significant for?alcoholic cirrhosis complicated by varices, ascites, and recurrent encephalopathy, hepatitis C s/p treatment, insulin-dependent diabetes type 2, and CAD s/p stent who presents to the ED after family found patient unresponsive in bed this morning. Pt will be admitted to the hospital for treatment of acute hepatic encephalopathy in the setting of decompensated alcoholic cirrhosis. Acute hepatic encephalopathy in the setting of decompensated alcoholic cirrhosis Patient with AMS, confusion, obtunded since this morning, patient with alcoholic cirrhosis, Lfts; ch elevated , ammonia 73-49,Pt with hx of medication noncompliance head ct : negative ascitis tap- results pending cxr -mild atelactasis Pt recevied lactulose 200 g pr in ED plan: in ed:4L of clear fluid was drained mental status improving seen by swallow-advanced diet. Continue po lactlose , rifaximin,albumin ,,moniter for 3-4 bm's(goal),Monitor mentation. hold furosemide, and spironolactone for today ,tomorrow start back diuretics , Gi eval Question of SBP Suspicion for SBP low: Patient afebrile, abdominal exam benign, no vomiting s/p tap Will treat empirically with ceftriaxone 1 g qd, started 06/02/2023 Follow peritoneal studies, cultures HTN Continue home meds . CAD/HLD Continue statin GERD Continue PPI Insulin-dependent diabetes type 2 fs with sliding scale insulin Mood disorder Continue mirtazapine once no longer NPO Full Code DVT Prophylaxis: Lovenox ongoing hospitalization of need : for treatment of?acute hepatic encephalopathy in the setting of decompensated alcoholic cirrhosis-need mental status monitering ,lactulose , Pt will require IV and MA meds and close monitoring, expert consulattion Quality Stroke Does the patient have a stroke diagnosis?: No VTE Prior VTE?: No VTE Risk Level:: Medical - moderate - high VTE Device Contraindication: Treatment Not Indicated VTE Drug Contraindication: N/A - Med Ordered
[2023-06-04 19:18] VITALS: BP 101/59; PULSE 78; RESP 18; TEMP 36.3; O2SAT 99
[2023-06-04] MEDS: Albumin Human 25 % 100 ML 133.33 ML IV ×2 (19:28→20:21)
[2023-06-04 20:10] LABS: Glucose, Whole Blood 260 mg/dL (60-115)
[2023-06-04] MEDS: Mirtazapine 7.5 MG TABLET PO (20:21)
[2023-06-04] MEDS: Gabapentin 300 MG CAPSULE PO (20:21)
[2023-06-05 03:28] VITALS: BP 124/74; PULSE 82; RESP 16; TEMP 35.9; O2SAT 96
[2023-06-05] MEDS: Omeprazole 20 MG CAPSULE.DR PO (05:21)
[2023-06-05 05:27] LABS: Hematocrit 26.7 % (42.0-52.0); Hemoglobin 9.3 g/dl (14.0-18.0); Mean Corpuscular HGB Conc 34.8 g/dl (31.0-36.0); Mean Corpuscular Hemoglobin 29.6 pg (27.0-33.0); Red Blood Count 3.14 X10*6/uL (4.60-5.80); Red Cell Distribution Width 14.5 % (11.0-16.0); White Blood Count 2.7 X10*3/uL (4.8-10.8)
[2023-06-05 05:35] LABS: Platelet Count 55 X10*3/uL (160-400)
[2023-06-05 05:43] LABS: Anion Gap 12 (12-20); Blood Urea Nitrogen 20 mg/dL (9-16); Calcium 8.4 mg/dL (8.4-10.2); Carbon Dioxide 24 mmol/L (22-29); Chloride 101 mmol/L (96-108); Creatinine Clr Calc Pharmacy 49.5; Estimated Glomerular Filt Rate 53; Glucose Random 213 mg/dL (60-115); Potassium 3.3 mmol/L (3.3-5.1); Sodium 134 mmol/L (135-145)
[2023-06-05 07:24] LABS: Glucose, Whole Blood 188 mg/dL (60-115)
[2023-06-05 07:26] VITALS: BP 101/62; PULSE 84; RESP 17; TEMP 36.2; O2SAT 96
[2023-06-05] MEDS: rifAXIMin 550 MG TABLET PO (08:11)
[2023-06-05] MEDS: Ferrous Sulfate 324 MG TABLET.DR PO (08:11)
[2023-06-05] MEDS: nadoloL 20 MG TABLET PO (08:11)
[2023-06-05] MEDS: Insulin Lispro 100 UNIT/ML 3 ML VIAL SUBCUT ×2 (08:11→11:50)
[2023-06-05] MEDS: Lactulose 20 GM/30 ML SOLUTION 30 GM PO (08:11)
[2023-06-05] MEDS: Atorvastatin Calcium 20 MG TABLET PO (08:11)
[2023-06-05] MEDS: Lidocaine 4 % Patch ADH..PATCH 1 PATCH TRANSDERMA (08:11)
[2023-06-05] MEDS: 0.9 % Sodium Chloride Flush 3 ML SYRINGE IVFLUSH (08:13)
[2023-06-05 10:16] VITALS: BP 96/52; PULSE 78
--- NOTE | 2023-06-05 10:24 | MHC.CM.PN ---
Patient is discharged to home today. [facility] will resume PT and OT. New SN for med management education. 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 Patient has arranged for a family member to provide transportation home.
--- NOTE | 2023-06-05 11:16 | PM.DS ---
DS: Providers Provider Date of Service: 06/05/23 Date of admission: 06/02/23 21:19 Date of discharge: 06/05/23 Primary care physician: César Strickland MD Consults: 06/03/23 12:13 Consult to Gastroenterology Routine Consulting Provider: Maverick Zuluaga Reason for consultation: advanced liver dis/hepatic encephalopathy Has provider been notified: No DS: Diagnosis Discharge Diagnosis (1) Acute alteration in mental status: Status: Acute (2) Hyperammonemia: Status: Acute (3) Acute hepatic encephalopathy: Status: Acute DS: Summary Hospital Course Hospital Course: 58-year-old male with a PMH significant for?alcoholic cirrhosis complicated by varices, ascites, and recurrent encephalopathy, hepatitis C s/p treatment, insulin-dependent diabetes type 2, and CAD s/p stent who presents to the ED after family found patient unresponsive in bed this morning. Patient is currently somnolent but arousable to verbal stimuli, but only answering ?OK? to all inquiries and not oriented to self. HPI thus obtained from chart and provider review, as well as family who was at bedside. The patient was apparently in his normal state of health last night and seen taking his nighttime medications, but family could not reach him this morning by phone. When they stopped to check on him they found him unresponsive in the bed and called EMS. Patient has a long history of similar presentations to the hospital with last admissions on 04/12-04/14 and from 03/26-03/29. Patient lives alone but is monitored with cameras by his family out of concern for medication compliance, especially with lactulose. Family also report patient has now been taken off the liver transplant list d/t his deconditioning. He has recurrent ascites requiring q2 week large volume paracentesis, last on 05/23/2023. Pt was tapped today in the ED where 4L of clear fluid was drained. In the ED pt with soft BP of 99/59, otherwise vitals WNL. Labs were significant for creatinine 1.54, glucose 268, total bilirubin 2.3, AST 85, ALT 45, alk-phos 320, ammonia 73, albumin 2.0. UA negative for UTI. Alcohol level undetectable. Negative for COVID, influenza types A and B. CXR showed hypoexpanded lungs with left basilar atelectasis. CT?of head found no acute intracranial pathology. EKG demonstrated normal sinus rhythm without evidence of significant ST elevations or depressions. Pt was treated with albumin, lactulose 200 g per rectum, and prophylactic ceftriaxone for possible SBP. Pt will be admitted to the hospital for treatment of acute hepatic encephalopathy in the setting of decompensated alcoholic cirrhosis. Hospital course: at[place] came to the hospital because of altered mental status -secondary to acute hepatic encephalopathy with his liver cirrhosis: Patient was given paracentesis, paracentesis fluid negative for SBP, paracentesis culture also negative, patient was continued on lactulose, rifaximin-mental status seems to be improved significantly, producing bowel movements: Goal for BMs 3-4 /day. Seen by GI recommended to continue current management and in addition patient was advised strongly if with compliance with his medication, and monitoring BMs. Patient has mild hyponatremia-sodium today is 134 ,continue to monitor BMP - renal function and electrolytes closely leigh and diuretics. ch pancytopenia in setting of liver cirrosis : moniter cbc outpatient. plan: mild hyponatremia-sodium today is 134 ,continue to monitor BMP - renal function and electrolytes closely leigh and diuretics ch pancytopenia in setting of liver cirrosis : moniter cbc outpatient. Follow up with GI outpatient as well as PCP. Above management discussed with the patient in detail length. Pay patient will be getting home with VNA and PT. Time Attestation Discharge coordination time: Greater than 30 minutes Quality: Safe Use of Opioids Does Pt have an Active Cancer Diagnosis on the Problem List?: No Quality: Stroke Does the patient have a stroke diagnosis?: No Physical Exam Vital Signs: Vital Signs: Last Vital Signs Temp 97.2 F 06/05/23 07:26 Pulse 78 06/05/23 10:16 Resp 17 06/05/23 07:26 BP 96/52 L 06/05/23 10:16 Pulse Ox 96 06/05/23 07:26 O2 Del Method Room Air 06/05/23 07:26 BMI result Body Mass Index 22.4 Appearance: Alert.? Oriented X3 .? not in distress. cvs: rrr, [id number] . res: clear to auscultation ,no rhonchii or wheezing abd: no rebound or guarding ,nt, bs present. ext pulses present , no cyanosis. neuro: nonfocal. DS: Data Data Completed and Pending Completed studies during hospitalization [Text1]: Procedures Drainage of Peritoneal Cavity, Percutaneous Approach (03/26/23) Inspection of Upper Intestinal Tract, Via Natural or Artificial Opening Endoscopic (09/09/22) Transfusion of Nonautologous Red Blood Cells into Peripheral Vein, Percutaneous Approach (09/09/22) Labs on day of discharge: Laboratory Results - last 24 hr 06/04/23 06/04/23 06/05/23 16:15 20:04 05:03 WBC 2.7 L RBC 3.14 L Hgb 9.3 L Hct 26.7 L MCV 85.0 MCH 29.6 MCHC 34.8 RDW 14.5 Plt Count 55 L D MPV 11.0 Absolute Nucleated RBC 0.000 Nucleated RBC % (auto) 0.0 Sodium 134 L Potassium 3.3 Chloride 101 Carbon Dioxide 24 Anion Gap 12 BUN 20 H Creatinine 1.37 Estim Creat Clear Calc 49.5 Estimated GFR 53 POC Glucose 290 H 260 H Random Glucose 213 H Calcium 8.4 06/05/23 07:20 WBC RBC Hgb Hct MCV MCH MCHC RDW Plt Count MPV Absolute Nucleated RBC Nucleated RBC % (auto) Sodium Potassium Chloride Carbon Dioxide Anion Gap BUN Creatinine Estim Creat Clear Calc Estimated GFR POC Glucose 188 H Random Glucose Calcium Preliminary micro results at discharge 06/02/23 19:08 Anaerobic Culture - Preliminary Ascites Fluid No growth to date. Discharge Plan Discharge Anticipated Discharge Date/Time: 06/05/23 11:08 Patient Disposition: Home Health Service Discharge Diagnosis: liver cirrosis and hepatic encephalopathy Referrals: Gavin RODRIGUEZ [Outside] - 1 Week César Strickland MD [Primary Care Provider] - 1 Week Discharge Medications: Continued atorvastatin 20 mg tablet 20 mg PO DAILY insulin glargine-yfgn [Semglee(insulin glarg-yfgn)Pen] 100 unit/mL (3 mL) insulin pen 66 unit subcut DAILY furosemide 20 mg tablet 40 mg PO DAILY spironolactone [Aldactone] 100 mg tablet 100 mg PO DAILY Qty: 30 0RF Ozempic 2 mg/dose (8 mg/3 mL) pen injector 2 mg subcut QWEEK Xifaxan 550 mg Tablet 550 mg PO BID Qty: 60 0RF gabapentin 300 mg capsule 300 mg PO BEDTIME hydroxyzine HCl 50 mg tablet 50 mg PO BEDTIME PRN (Reason: anxiety) lidocaine 5 % adhesive patch,medicated 1 patch topical DAILY PRN (Reason: Pain) omeprazole 20 mg capsule,delayed release(DR/EC) 20 mg PO DAILY@0630 mirtazapine 7.5 mg tablet 7.5 mg PO BEDTIME lactulose 20 gram/30 mL solution 20 g PO TID ferrous sulfate 325 mg (65 mg iron) tablet 325 mg PO DAILY lidocaine 5 % adhesive patch,medicated 1 patch topical DAILY Qty: 15 0RF Rx Instructions: leave on most painful area for up to 12 hrs nadolol 20 mg tablet 20 mg PO DAILY 90 Days Qty: 90 1RF Discharge Orders: Discharge Order (Routine); Ordered 06/05/23 Ordered By: Alanis Roberts Diet: Advance to usual diet Activity on Discharge: As tolerated Stand Alone Forms: Patient Portal Discharge page Other Ambulatory Orders: Basic Metabolic Panel (Routine) Timeframe: 1 Week Facility: [facility] - Location: Laboratory Ordered By: Alanis Roberts Complete Blood Count no Diff (Routine) Timeframe: 1 Week Facility: [facility] - Location: Laboratory Ordered By: Alanis Roberts Care Plan Goals: Patient came to the hospital because of altered mental status -secondary to acute hepatic encephalopathy with his liver cirrhosis: Patient was given paracentesis, paracentesis fluid negative for SBP, paracentesis culture also negative, patient was continued on lactulose, rifaximin-mental status seems to be improved significantly, producing bowel movements: Goal for BMs 3-4 /day. Seen by GI recommended to continue current management and in addition patient was advised strongly if with compliance with his medication, and monitoring BMs. Patient has mild hyponatremia-sodium today is 134 ,continue to monitor BMP - renal function and electrolytes closely leigh and diuretics. ch pancytopenia in setting of liver cirrosis : moniter cbc outpatient. Follow up with GI outpatient as well as PCP. Above management discussed with the patient in detail length. Pay patient will be getting home with VNA and PT. Health Concerns: As above. Plan of Treatment: As above. Assessment: As above.
[2023-06-05 11:24] LABS: Glucose, Whole Blood 285 mg/dL (60-115)
--- NOTE | 2023-06-05 11:45 | P.F2F_ITS ---
Service Date Service Date: 06/05/23 Encounter Date of encounter: 06/05/23 Encounter: Liver cirrhosis with hepatic encephalopathy, pancytopenia, hyponatremia. Reasons for Services Signs and symptoms assessed: Change in mental status, monitor for BMs (goal bowel movements is 3-4 day), fever or abdominal pain Reason for intermediate: medication management, medication treatment and teach disease management Reason for physical therapy: home safety and mobility, therapeutic exercises, restore joint function, gait/transfer training, assess need for DME, ADL training, energy conservation and other MD Overseeing Care: César Strickland Homebound: Leaving the home is medically contraindicated at this time without the asist of a device and/or another person due th the listed conditions above and below. Reason homebound: weakness related to hospital stay Homebound supporting statement: Patient had multiple comorbidities including liver cirrhosis with encephalopath y, pancytopenia, generalized weak post hospital stay: Need help to go to appointments, Lab blood draws, PT, also need disease management and Education. Certification: Based on the above findings, I certify that this patient is confined to the home and needs intermittent intermediate care, physical therapy and/or speech therapy, or continues to need occupational therapy. The patient is under my care, and I have initiated the establishment of the plan of care. The patient will be followed by a physician who will periodically review the plan of care. Time Spent With Patient Time: Total time managing care of this patient today ____ minutes.
== END 2023-06-05 14:03 | disposition home health service (06) | DRG 280 ==
LOC: HO.ED 18:35 → HO.EDOVER 21:31 → HO.S3 22:28
PROVIDERS: Student in an Organized Health Care Education/Training Program; Admitting Provider Student in an Organized Health Care Education/Training Program; Emergency Provider Emergency Medicine; PCP Internal Medicine; Visit Provider Internal Medicine
DX: K70.31 Alcoholic cirrhosis of liver with ascites (principal); G93.41 Metabolic encephalopathy; E72.20 Disorder of urea cycle metabolism, unspecified; D61.818 Other pancytopenia; I25.10 Atherosclerotic heart disease of native coronary artery without angina pectoris; K21.9 Gastro-esophageal reflux disease without esophagitis; E11.9 Type 2 diabetes mellitus without complications; E78.5 Hyperlipidemia, unspecified; E87.1 Hypo-osmolality and hyponatremia; F39 Unspecified mood [affective] disorder; K76.82 Hepatic encephalopathy; J98.11 Atelectasis; Z87.891 Personal history of nicotine dependence; Z86.19 Personal history of other infectious and parasitic diseases; Z20.822 Contact with and (suspected) exposure to COVID-19; Z79.4 Long term (current) use of insulin; Z79.85 Long-term (current) use of injectable non-insulin antidiabetic drugs; Z79.899 Other long term (current) drug therapy
CPT/HCPCS: 36415; 70450; 71045; 80048; 80053; 80076; 80307; 81003; 82042; 82140; 82150; 82570; 82945; 82947; 83615; 83986; 84157; 85027; 85610; 85730; 87070; 87073; 87205; 87502; 87635; 89051; 92610; 93005; 99285; C9113; J0696; J1650; J2270; P9047

== ENCOUNTER → 2023-06-02 14:33 | Outpatient (BNV) | payer OTHER, SELFPAY | PROVIDERS: Admitting Provider Student in an Organized Health Care Education/Training Program; Emergency Provider Emergency Medicine; PCP Internal Medicine; Visit Provider Internal Medicine | DX: K76.82 Hepatic encephalopathy (principal) | CPT/HCPCS: 93010 ==

== ENCOUNTER → 2023-06-02 21:19 | Outpatient (BNV) | payer OTHER, SELFPAY | PROVIDERS: Admitting Provider Student in an Organized Health Care Education/Training Program; Emergency Provider Emergency Medicine; PCP Internal Medicine; Visit Provider Student in an Organized Health Care Education/Training Program | DX: R41.82 Altered mental status, unspecified (principal); E72.20 Disorder of urea cycle metabolism, unspecified; K76.82 Hepatic encephalopathy | CPT/HCPCS: 99223; 99232; 99239; G0180 ==

== ENCOUNTER 2023-06-10 17:17 | Outpatient (REF) | payer OTHER, SELFPAY ==
[2023-06-10 17:44] LABS: Ammonia 46 umol/L (13-55)
[2023-06-10 19:40] LABS: Alanine Aminotransferase 66 U/L (0-40); Albumin Level 2.5 g/dL (3.5-5.0); Alkaline Phosphatase 387 U/L (39-117); Anion Gap 13 (12-20); Aspartate Amino Transferase 122 U/L (5-37); Bilirubin Total 2.4 mg/dL (0.0-1.0); Blood Urea Nitrogen 17 mg/dL (9-16); Calcium 8.6 mg/dL (8.4-10.2); Carbon Dioxide 23 mmol/L (22-29); Chloride 97 mmol/L (96-108); Estimated Glomerular Filt Rate 47; Glucose Random 555 mg/dL (60-115); Potassium 4.2 mmol/L (3.3-5.1); Sodium 129 mmol/L (135-145); Total Protein 6.4 g/dL (6.5-8.0)
== END 2023-06-10 17:18 | disposition home or self-care (01) ==
LOC: HO.LAB 17:17
PROVIDERS: PCP Internal Medicine; Visit Provider Internal Medicine
DX: K70.31 Alcoholic cirrhosis of liver with ascites (principal)
CPT/HCPCS: 36415; 80053; 82140

== ENCOUNTER 2023-06-12 07:59 | Day surgery (SDC) | payer OTHER, SELFPAY ==
[2023-06-12] VITALS (7 sets, daily range): BP systolic 95–103; BP diastolic 58–63; PULSE 76–81; RESP 16–20; TEMP 36–36.4; O2SAT 98–100; BMI 23.5; BMI 23.8
== END 2023-06-12 12:07 | disposition home or self-care (01) ==
PROVIDERS: Physician Assistant Surgical; PCP Internal Medicine; Visit Provider Internal Medicine
DX: K70.31 Alcoholic cirrhosis of liver with ascites (principal); F10.11 Alcohol abuse, in remission; K76.82 Hepatic encephalopathy; I85.00 Esophageal varices without bleeding; E72.4 Disorders of ornithine metabolism; R41.82 Altered mental status, unspecified; I10 Essential (primary) hypertension; I25.10 Atherosclerotic heart disease of native coronary artery without angina pectoris; Z95.5 Presence of coronary angioplasty implant and graft; E11.9 Type 2 diabetes mellitus without complications; Z79.4 Long term (current) use of insulin; Z79.899 Other long term (current) drug therapy; Z88.0 Allergy status to penicillin; Z88.5 Allergy status to narcotic agent; Z87.891 Personal history of nicotine dependence
CPT/HCPCS: 36415; 49083; 80048; 82947; 85025; 85610; 87070; 87073; 87205; 89051; P9047

== ENCOUNTER → 2023-06-12 08:02 | Outpatient (BNV) | payer OTHER, SELFPAY | PROVIDERS: PCP Internal Medicine; Visit Provider Radiology Diagnostic Radiology | DX: R18.8 Other ascites (principal) | CPT/HCPCS: 49083 ==

== ENCOUNTER 2023-06-14 04:51 | Inpatient (IN) | payer OTHER, SELFPAY ==
[2023-06-14] VITALS (10 sets, daily range): BP systolic 96–128; BP diastolic 54–82; PULSE 77–86; RESP 12–20; TEMP 36.1–36.4; O2SAT 96–100; BMI 20.9
--- NOTE | 2023-06-14 05:47 | ED.GENADULT ---
HPI - General Adult General Chief complaint: General Medical Stated complaint: AMS/Liver Cancer Time Seen by Provider: 06/14/23 05:14 Source: EMS Mode of arrival: EMS Limitations: altered mental status History of Present Illness HPI narrative: Patient comes to the emergency room via ambulance from home. Patient has history of advanced cirrhosis, multiple episodes of encephalopathy. Patient's son is at bedside. Patient states that the patient is by himself, yesterday the patient seemed to be confused, son stay with him for. Throughout the night, patient started becoming more decompensated, more weak, not as reactive. Approximately 2 days ago, patient had a therapeutic paracentesis according to the son. One week ago, patient was discharged from this hospital, patient presented with similar symptoms. Patient is too weak to give any history. Related Data Home Medications Medication Instructions Recorded Confirmed atorvastatin 20 mg tablet 20 mg PO DAILY 06/29/20 06/03/23 insulin glargine-yfgn 100 unit/mL 66 unit subcut DAILY 09/09/22 05/23/23 (3 mL) subcutaneous pen (Semglee (insulin glargine-yfgn) Pen) gabapentin 300 mg capsule 300 mg PO BEDTIME 12/27/22 06/03/23 ferrous sulfate 325 mg (65 mg 325 mg PO DAILY 03/26/23 06/03/23 iron) tablet hydroxyzine HCl 50 mg tablet 50 mg PO BEDTIME PRN anxiety 03/26/23 06/03/23 lactulose 20 gram/30 mL oral 20 g PO TID 03/26/23 06/03/23 solution lidocaine 5 % topical patch 1 patch topical DAILY PRN Pain 03/26/23 06/03/23 mirtazapine 7.5 mg tablet 7.5 mg PO BEDTIME 03/26/23 06/03/23 omeprazole 20 mg capsule,delayed 20 mg PO DAILY@0630 03/26/23 06/03/23 release furosemide 20 mg tablet 40 mg PO DAILY 04/12/23 06/03/23 semaglutide 2 mg/dose (8 mg/3 mL) 2 mg subcut QWEEK 06/03/23 subcutaneous pen injector (Ozempic) Previous Rx's Medication Instructions Recorded rifaximin 550 mg tablet (Xifaxan) 550 mg PO BID #60 tabs 10/04/22 spironolactone 100 mg tablet 100 mg PO DAILY #30 tabs 04/14/23 (Aldactone) nadolol 20 mg tablet 20 mg PO DAILY 90 days #90 tabs 05/16/23 lidocaine 5 % topical patch 1 patch topical DAILY #15 ea 05/31/23 Allergies Allergy/AdvReac Type Severity Reaction Status Date / Time codeine [CODEINE] Allergy Mild ITCHINESS, Verified 06/14/23 05:09 itching penicillin G Allergy Mild itching Verified 06/14/23 05:09 Review of Systems Review of Systems: Yes Unobtainable due to mental condition PMFSH Past Medical History Onset Date is defined in the Problem List Problems that require an onset date and time if occurred within 24 hrs of arrival to the ED Aortic Dissection and Rupture; Neurologic impairment; Cardiopulmonary Arrest; Endotracheal Intubation; Insertion or Replacement of Mechanical Circulatory Assist Device Medical History Mood disorder Anemia Coronary artery disease Chronic hyponatremia Diabetes mellitus Cirrhosis of liver with ascites Chronic liver failure S/P abdominal paracentesis Black stools Normocytic anemia Abdominal ascites Cirrhosis of liver Varices, esophageal History of alcohol abuse Diabetes Elevated cholesterol Myocardial infarction HTN (hypertension) Hepatitis Cirrhosis Surgical History Hx of hand surgery History of PTCA History of esophagogastroduodenoscopy (EGD) H/O colonoscopy Social History Social History Household Members: Unknown / Unable to assess Housing: Unknown / Unable to assess Do you presently have visiting nurse or other home services: No Unable to assess alcohol history related to: Unable to respond Alcohol intake: former 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 Patient Tobacco Use Status: Former Tobacco user Quit Date: 2013 Tobacco use type: Cigarette Smoked in Last 30 Days: No Second Hand Smoke Exposure: No Use of substances other than those prescribed or required for medical reasons: No Substance Use Type: Unknown Advance Directives: Yes Advance Directives on File: Yes Advance Directives Date on File: 09/13/22 service: No Current occupational status: disabled Cognitive needs: No Hearing needs: No Vision needs: No Physical Exam ED Vital Signs: Vital Signs - 24 hr 06/14/23 04:56 Temperature 97.0 F Pulse Rate 84 Respiratory Rate 16 Blood Pressure 128/82 Pulse Oximetry 98 Oxygen Delivery Method Room Air BMI result Body Mass Index 20.9 Const Other: Appearance: Somnolent, arousable opens eyes, sustained Q goes back to sleep Eyes: Pupils equal, round and reactive to light. ENT: Pharynx normal. Neck: Normal inspection. Neck supple. No lymph nodes noted. No crepitus CVS: Normal heart rate and rhythm. Pulses normal. Normal S1 and S2 Respiratory: No respiratory distress. Breath sounds normal. No Wheezing. No rales Abdomen: Distended, umbilical hernia reducible, ascites present. Skin: Skin warm and dry. Icteric skin color. Normal skin turgor. Extremities: No lower extremity edema. No Lacerations. No Rash Neuro: Unable to participate in cranial nerve assessment Psych: calm Course Course Course Narrative: - all of patient's labs and imaging pending -patient's son is at bedside. Patient's son states that yesterday he had a conversation with his sister, patient's other daughter who is the healthcare proxy regarding his goal of care. Seems that the patient wanted to have everything done. However, patient's son and healthcare proxy are aware that he is not going to get any better. Son requests that they need more help. They are considering palliative care versus hospice care. At this time, they are not sure. Family requesting a case management consult is to discuss her choices. Medical Decision Making Medical Decision Making [facility] Narrative: -my interpretation of labs: hematology at baseline. INR at baseline, electrolytes within normal limits. However, the ammonia is significantly elevated at 159. Patient was given rectal lactulose. Patient cannot take p.o. at this time, too altered. -patient being admitted for hepatic encephalopathy. -patient had therapeutic paracentesis done on June 12, 8.5 L were removed. -family will likely need a case management consult to discuss goals of care, palliative care versus hospice -I discussed the patient with Dr. You, pt being admitted. Differential Diagnosis Differential Diagnoses: The differential diagnosis associated with the presentation includes (Hepatic encephalopathy) Admission/Observation Consideration of admission/observation: Escalation of care including admission/observation considered Consult Healthcare Provider Management of the patient was discussed with: Hospitalist Lab Data [facility] Lab Attestation statement: I reviewed the patient's lab results. 06/14/23 05:56 06/14/23 05:54 Labs: Lab Results 06/14/23 06/14/23 Range/Units 05:54 05:56 WBC 3.5 L (4.8-10.8) X10*3/uL RBC 3.94 L (4.60-5.80) X10*6/uL Hgb 11.7 L (14.0-18.0) g/dl Hct 33.2 L (42.0-52.0) % MCV 84.3 (80.0-98.0) fL MCH 29.7 (27.0-33.0) pg MCHC 35.2 (31.0-36.0) g/dl RDW 16.2 H (11.0-16.0) % Plt Count 78 L (160-400) X10*3/uL MPV 10.1 (9.4-12.4) fL Immature Gran % (Auto) 0.3 (0.0-0.4) % Neut % (Auto) 63.6 (45-73) % Lymph % (Auto) 14.5 L (20-40) % [place] % (Auto) 12.0 H (2-11) % Eos % (Auto) 8.5 H (0-4) % Baso % (Auto) 1.1 (0-2) % Lymph # (Auto) 0.5 L (1.2-4.9) X10*3/uL [place] # (Auto) 0.4 (0.1-1.2) X10*3/uL Eos # (Auto) 0.3 (0.0-0.4) X10*3/uL Baso # (Auto) 0.0 (0.0-0.2) X10*3/uL Abs Immat Gran (auto) 0.01 (0.00-0.03) X10*3/uL Absolute Neuts (auto) 2.2 (2.0-8.3) x10*3/uL Absolute Nucleated RBC 0.000 (0.0-0.012) X10*3/uL Nucleated RBC % (auto) 0.0 (0.0-0.2) /100WBC PT 17.0 H (11.1-13.3) SEC INR 1.4 H (0.9-1.1) Sodium 135 (135-145) mmol/L Potassium 3.9 (3.3-5.1) mmol/L Chloride 103 (96-108) mmol/L Carbon Dioxide 22 (22-29) mmol/L Anion Gap 14 (12-20) BUN 14 (9-16) mg/dL Creatinine 1.25 (0.5-1.4) mg/dL Estim Creat Clear Calc 55.5 Estimated GFR 59 Random Glucose 237 H (60-115) mg/dL Calcium 8.8 (8.4-10.2) mg/dL Magnesium 1.9 (1.6-2.6) mg/dL Total Bilirubin 2.5 H (0.0-1.0) mg/dL Direct Bilirubin 1.2 H (0.0-0.5) mg/dL AST 139 H (5-37) U/L ALT 72 H (0-40) U/L Alkaline Phosphatase 414 H (39-117) U/L Ammonia 159 H (13-55) umol/L Total Protein 6.2 L (6.5-8.0) g/dL Albumin 2.7 L (3.5-5.0) g/dL Ethyl Alcohol < 10 mg/dL COVID-19 (SHAZIA) Negative (Negative) COVID-19 Clin Com See Note Influenza Type A (ERIC) Negative (Negative) Influenza Type B (ERIC) Negative (Negative) Influenza A & B Note See Note Independent Historian Clinical information obtained from an independent historian. History obtained from or confirmed by: EMS and Other (Patient's son) Chronic Conditions Patient?s care impacted by: Other (Cirrhosis) Critical Care Time Critical Care Time Critical Care Time: Yes Total Critical Care Time: 75 Attestation: I have personally provided critical care time. Time includes review of lab data, radiology results, discussion with consultants, and monitoring for potential decompensation. Intervention performed as documented. Discharge Plan Discharge Clinical Impression: Encephalopathy, hepatic Patient Disposition: Admitted As Inpatient Prescriptions: No Action atorvastatin 20 mg tablet 20 mg PO DAILY insulin glargine-yfgn [Semglee(insulin glarg-yfgn)Pen] 100 unit/mL (3 mL) insulin pen 66 unit subcut DAILY furosemide 20 mg tablet 40 mg PO DAILY spironolactone [Aldactone] 100 mg tablet 100 mg PO DAILY Qty: 30 0RF Ozempic 2 mg/dose (8 mg/3 mL) pen injector 2 mg subcut QWEEK Xifaxan 550 mg Tablet 550 mg PO BID Qty: 60 0RF gabapentin 300 mg capsule 300 mg PO BEDTIME hydroxyzine HCl 50 mg tablet 50 mg PO BEDTIME PRN (Reason: anxiety) lidocaine 5 % adhesive patch,medicated 1 patch topical DAILY PRN (Reason: Pain) omeprazole 20 mg capsule,delayed release(DR/EC) 20 mg PO DAILY@0630 mirtazapine 7.5 mg tablet 7.5 mg PO BEDTIME lactulose 20 gram/30 mL solution 20 g PO TID ferrous sulfate 325 mg (65 mg iron) tablet 325 mg PO DAILY lidocaine 5 % adhesive patch,medicated 1 patch topical DAILY Qty: 15 0RF Rx Instructions: leave on most painful area for up to 12 hrs nadolol 20 mg tablet 20 mg PO DAILY 90 Days Qty: 90 1RF
--- NOTE | 2023-06-14 06:25 | PC.NURSE ---
Pt brought in by son. Pt two assist to transfer from W/C to bed. Pt not answering questions appropriately, only stating okay . Per son Pt with increase confusion since yesterday. IV line established, blood work collected and sent to lab.
--- NOTE | 2023-06-14 07:32 | PC.NURSE ---
enema given w xeo rn- tolerated well. pt having difficulty holding fluid inside following administration
--- NOTE | 2023-06-14 07:49 | PHA.MEDREC ---
Pharmacy Consult ? Medication Reconciliation Pharmacy has completed the medication reconciliation. Patient recently discharged 06/05/23
--- NOTE | 2023-06-14 08:09 | MHC.EDTECH ---
Pt incotinent of feces. T/w and RN did full bed change and cleaned Pt. Pt placed in [facility] and repositioned. Pt prefer to lay on his side. Warm blankets given.
--- NOTE | 2023-06-14 08:15 | PC.NURSE ---
x1 large brown bm. michael care and partial bed bath w warm bath wipes w rn/tech. boosted. new pads/gown/sheets. remains confused. stable vs. no resp distress.
--- NOTE | 2023-06-14 09:58 | PC.NURSE ---
arturo desouza updated via tiger re pt's status: his VS are stable. he had 1 large brown BM after lactulose enema this AM. he is definitely confused and doesn't follow commands when you ask him to do things. he is pretty sleepy but will nod if i say his name loud and tap him on the chest. he just seems really tired/lethargic
--- NOTE | 2023-06-14 10:20 | PC.NURSE ---
jose armando desouza ordered to [facility] cath as rn bladder scanned b/c has not given urine sample yet and >550cc. jose armando desouza notified poc 245 and remains lethargic/not following commands
--- NOTE | 2023-06-14 10:32 | PC.NURSE ---
[facility] 14fr placed per jose armando desouza- retaining urine 550+ per bl scanner. urine sent. clear concentrated cher/yellow
--- NOTE | 2023-06-14 14:24 | PC.NURSE ---
PT REMAINS AGITATED INTERMITTENTLY, STARTS TO PULL OFF ALL WIRES. ASSEMBLER FOR PULLER OVER HAND AWARE.
--- NOTE | 2023-06-14 14:57 | PM.IMHP ---
History of Present Illness Date of Service: 06/14/23 Chief Complaint: Confusion 58-year-old man with history of hepatic encephalopathy, advanced cirrhosis presenting to the ER with increased confusion, weakness. According to the patient's son he had become less reactive over the last 2 days. Had a therapeutic paracentesis about 1 week ago. Discharged from [facility] on 06/05/2023 with acute hepatic encephalopathy secondary to liver cirrhosis. Patient is confused and not able to give any accurate history. Ammonia 159, given 200 g of UT lactulose. Plan is to admit patient for further management and treatment of acute hepatic encephalopathy. Review of Systems Review of Systems: Yes Unobtainable due to mental status [facility] Medical History Mood disorder Anemia Coronary artery disease Chronic hyponatremia Diabetes mellitus Cirrhosis of liver with ascites Chronic liver failure S/P abdominal paracentesis Black stools Normocytic anemia Abdominal ascites Cirrhosis of liver Varices, esophageal History of alcohol abuse Diabetes Elevated cholesterol Myocardial infarction HTN (hypertension) Hepatitis Cirrhosis Surgical History Hx of hand surgery History of PTCA History of esophagogastroduodenoscopy (EGD) H/O colonoscopy Social History Household Members: Unknown / Unable to assess Housing: Unknown / Unable to assess Do you presently have visiting nurse or other home services: No Unable to assess alcohol history related to: Unable to respond Alcohol intake: former 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 Tobacco Use Status: Former Tobacco user Quit Date: 2013 Tobacco use type: Cigarette Smoked in Last 30 Days: No Second Hand Smoke Exposure: No Use of substances other than those prescribed or required for medical reasons: No Substance Use Type: Unknown Advance Directives: Yes Advance Directives on File: Yes Advance Directives Date on File: 09/13/22 service: No Current occupational status: disabled Cognitive needs: No Hearing needs: No Vision needs: No Meds Allergies Allergy/AdvReac Type Severity Reaction Status Date / Time codeine [CODEINE] Allergy Mild ITCHINESS, Verified 06/14/23 05:09 itching penicillin G Allergy Mild itching Verified 06/14/23 05:09 Active Medications: Current Medications Sodium Chloride (0.9 % Sodium Chloride Flush 3 Ml Syringe) 3 ml IVFLUSH QSHIFT [facility] Home Medications Medication Instructions Recorded Confirmed Last Taken Type atorvastatin 20 mg tablet 20 mg PO DAILY 06/29/20 06/14/23 04/11/23 History insulin glargine-yfgn 100 unit/mL 66 unit subcut DAILY 09/09/22 06/14/23 04/11/23 History (3 mL) subcutaneous pen (Semglee (insulin glargine-yfgn) Pen) gabapentin 300 mg capsule 300 mg PO BEDTIME 12/27/22 06/14/23 04/11/23 History ferrous sulfate 325 mg (65 mg 325 mg PO DAILY 03/26/23 06/14/23 04/11/23 History iron) tablet hydroxyzine HCl 50 mg tablet 50 mg PO BEDTIME PRN anxiety 03/26/23 06/14/23 Unknown History lactulose 20 gram/30 mL oral 20 g PO TID 03/26/23 06/14/23 04/11/23 History solution lidocaine 5 % topical patch 1 patch topical DAILY PRN Pain 03/26/23 06/14/23 Unknown History mirtazapine 7.5 mg tablet 7.5 mg PO BEDTIME 03/26/23 06/14/23 04/11/23 History omeprazole 20 mg capsule,delayed 20 mg PO DAILY@0630 03/26/23 06/14/23 04/11/23 History release furosemide 20 mg tablet 40 mg PO DAILY 04/12/23 06/14/23 04/11/23 History semaglutide 2 mg/dose (8 mg/3 mL) 2 mg subcut QWEEK 06/03/23 06/14/23 Unknown History subcutaneous pen injector (Ozempic) Physical Exam Vital Signs and Narrative: Vital Signs: Last Vital Signs Temp 97.3 F 06/14/23 13:58 Pulse 83 06/14/23 13:58 Resp 12 06/14/23 13:58 BP 108/66 06/14/23 13:58 Pulse Ox 99 06/14/23 13:58 O2 Del Method Room Air 06/14/23 13:58 BMI result Body Mass Index 20.9 Appearing in no acute distress, lethargic head is normocephalic atraumatic mouth throat mucous membranes are intact and dry lung sounds are clear to auscultation heart regular rate rhythm, clear S1, S2 positive bowel sounds, abdomen is soft, nontender neuro patient sleeping, confused Results Labs 06/14/23 05:56 06/14/23 05:54 Labs: Laboratory Results - last 24 hr 06/14/23 06/14/23 06/14/23 05:54 05:56 10:06 MCV 84.3 MCH 29.7 MCHC 35.2 RDW 16.2 H Plt Count 78 L MPV 10.1 Immature Gran % (Auto) 0.3 Neut % (Auto) 63.6 Lymph % (Auto) 14.5 L [place] % (Auto) 12.0 H Eos % (Auto) 8.5 H Baso % (Auto) 1.1 Lymph # (Auto) 0.5 L [place] # (Auto) 0.4 Eos # (Auto) 0.3 Baso # (Auto) 0.0 Abs Immat Gran (auto) 0.01 Absolute Neuts (auto) 2.2 Absolute Nucleated RBC 0.000 Nucleated RBC % (auto) 0.0 PT 17.0 H INR 1.4 H Anion Gap 14 Estim Creat Clear Calc 55.5 Estimated GFR 59 POC Glucose 245 H Random Glucose 237 H Calcium 8.8 Magnesium 1.9 Total Bilirubin 2.5 H Direct Bilirubin 1.2 H AST 139 H ALT 72 H Alkaline Phosphatase 414 H Ammonia 159 H Total Protein 6.2 L Albumin 2.7 L Urine Color Urine Appearance Urine pH Ur Specific [place] Urine Protein Urine Glucose (UA) Urine Ketones Urine Blood Urine Nitrite Ur Leukocyte Esterase Urine Opiates Screen Urine Fentanyl Screen Ur Barbiturates Screen Ur Phencyclidine Scrn Ur Amphetamines Screen U Benzodiazepines Scrn Urine Cocaine Screen U Marijuana (THC) Screen Ethyl Alcohol < 10 COVID-19 (SHAZIA) Negative COVID-19 Clin Com See Note Influenza Type A (ERIC) Negative Influenza Type B (REIC) Negative Influenza A & B Note See Note 06/14/23 10:33 MCV MCH MCHC RDW Plt Count MPV Immature Gran % (Auto) Neut % (Auto) Lymph % (Auto) [place] % (Auto) Eos % (Auto) Baso % (Auto) Lymph # (Auto) [place] # (Auto) Eos # (Auto) Baso # (Auto) Abs Immat Gran (auto) Absolute Neuts (auto) Absolute Nucleated RBC Nucleated RBC % (auto) PT INR Anion Gap Estim Creat Clear Calc Estimated GFR POC Glucose Random Glucose Calcium Magnesium Total Bilirubin Direct Bilirubin AST ALT Alkaline Phosphatase Ammonia Total Protein Albumin Urine Color Dark Yellow Urine Appearance Clear Urine pH 5.5 Ur Specific [place] 1.025 Urine Protein Negative Urine Glucose (UA) 500 H Urine Ketones Trace Urine Blood Negative Urine Nitrite Negative Ur Leukocyte Esterase Negative Urine Opiates Screen Not Detected Urine Fentanyl Screen Not Detected Ur Barbiturates Screen Not Detected Ur Phencyclidine Scrn Not Detected Ur Amphetamines Screen Not Detected U Benzodiazepines Scrn Not Detected Urine Cocaine Screen Not Detected U Marijuana (THC) Screen Not Detected Ethyl Alcohol COVID-19 (SHAZIA) COVID-19 Clin Com Influenza Type A (ERIC) Influenza Type B (ERIC) Influenza A & B Note Assessment and Plan (1) Encephalopathy, hepatic: Status: Acute Plan 58-year-old man with history of alcoholic liver cirrhosis complicated by hepatic encephalopathy admitted with acute hepatic encephalopathy requiring per rectum lactulose Acute hepatic encephalopathy in this setting of decompensated liver cirrhosis Altered mental status Hold all medications at this time as patient is lethargic Monitor mentation Keep NPO Continue lactulose 200 g per rectum until patient able to take medications orally Low suspicion for SBP as patient recently had paracentesis Hypertension Stable blood pressure Hold medications for now as patient is NPO Coronary artery disease Hold statin GERD IV Pepcid Diabetes mellitus type 2 Sliding scale NPO for now Mental health Hold medications for now, continue 1 more week DVT prophylaxis with mechanical compression boots Full code DISPO discussed with son regarding possibility of hospice, Family is willing for a consultation Patient requires 2 inpatient midnights for treatment of acute hepatic encephalopathy requiring request monitoring and medications administered per rectum and possibly through an NG tube Quality Stroke Does the patient have a stroke diagnosis?: No VTE Prior VTE?: No VTE Risk Level:: Medical - moderate - high VTE Device Contraindication: N/A - Device Ordered VTE Drug Contraindication: Treatment Not Indicated
--- NOTE | 2023-06-14 15:45 | MHC.EDTECH ---
THIS PCT ASSUMED CARE OF PT AT 1500 ,VITALS TAKEN ,PT WAS INCONTINENT OF URINE CARE GIVEN AND ,PATIENT REPOSITION ,RN AWARE THAT PATIENT IS VERY ALTERED AND DISORIENTATED ,PT SON AT BEDSIDE .
--- NOTE | 2023-06-14 15:47 | PC.NURSE ---
LINENS CHANGED. AWAITING LACTULOSE FROM PHARMACY.
--- NOTE | 2023-06-14 17:34 | MHC.EDTECH ---
Patient vitals taken and blood sugar check ,pt family at bedside .
--- NOTE | 2023-06-15 | ECG_ITS ---
Test Reason : CP Blood Pressure : / mmHG Vent. Rate : 087 BPM Atrial Rate : 087 BPM P-R Int : 142 ms QRS Dur : 074 ms QT Int : 388 ms P-R-T Axes : 060 031 036 degrees QTc Int : 466 ms Normal sinus rhythm Nonspecific T wave abnormality Prolonged QT Abnormal ECG No previous ECGs available Referred By: Tammie Jerez Electronically Signed By:CYNTHIA SANCHEZ MD
[2023-06-15 03:12] VITALS: BP 140/60; PULSE 80; RESP 20; TEMP 36.3; O2SAT 99
[2023-06-15 07:39] VITALS: BP 90/46; PULSE 91; RESP 18; TEMP 36.6; O2SAT 97
--- NOTE | 2023-06-15 08:27 | MHC.CM.PN ---
Addendum entered by Eri Miranda 06/15/23 11:14: Per hospitalist, hospice referral placed with [facility], they plan to arrange a hospice info session with pts son Cristi tomorrow 06/16. Original Note: Pt with dx hepatic encephalopathy and with confusion. CM intake assessment done with pts son/HCP Cristi ([phone]). Pt lives at home alone, has [employer] about 3 hrs/wk, is active with [facility] for PT/OT/SN, uses a cane, walker, grab bars and a tub bench for the shower. Per pts son Cristi, he is concerned with his condition as he has been mostly unresponsive since being at the hospital. Cristi states he spoke with the hospitalist and they will likely have a conversation regarding hospice care for his father tomorrow (Friday 06/16). The goal is for the pt to return home, family will transport. PCP: Dr. César Strickland
[2023-06-15 08:37] LABS: Anion Gap 13 (12-20); Blood Urea Nitrogen 16 mg/dL (9-16); Calcium 9.2 mg/dL (8.4-10.2); Carbon Dioxide 23 mmol/L (22-29); Chloride 106 mmol/L (96-108); Estimated Glomerular Filt Rate > 60; Glucose Random 181 mg/dL (60-115); Potassium 3.5 mmol/L (3.3-5.1); Sodium 138 mmol/L (135-145)
--- NOTE | 2023-06-15 09:12 | HO.PM.IMPN ---
Subjective Subjective Date of Service: 06/15/23 Review of Systems Follow up hepatic encephalopathy better today and more awake some confusion Physical Exam Vital Signs: Vital Signs: Last Vital Signs Temp 97.8 F 06/15/23 07:39 Pulse 91 06/15/23 07:39 Resp 18 06/15/23 07:39 BP 90/46 L 06/15/23 07:39 Pulse Ox 97 06/15/23 07:39 O2 Del Method Room Air 06/15/23 07:39 O2 Flow Rate 50 06/14/23 20:00 FiO2 100 06/14/23 20:00 BMI result Body Mass Index 20.9 Appearing in no acute distress lung sounds are clear to auscultation heart regular rate rhythm, clear S1, S2 positive bowel sounds, abdomen is soft, nontender, distended neuro patient is alert x3, no focal deficits Objective Data Active Medications Dextrose (Dextrose 50 % 25 Gm/50 Ml Syringe) 25 gm IVPUSH Q15M PRN; Protocol PRN Reason: per Hypoglycemia Standing Ord. Famotidine (Famotidine/Pf 20 Mg/2 Ml Vial) 20 mg IVPUSH BID [facility] Last Admin: 06/15/23 08:56 Dose: 20 mg Documented By: ANA Glucose (Glucose Gel 15 Gm Gel..Gram.) 15 gm PO Q15M PRN; Protocol PRN Reason: per Hypoglycemia Standing Ord. Insulin Human Lispro (Insulin Lispro 100 Unit/Ml 3 Ml Vial) 0 unit SUBCUT QIDACHS [facility]; Protocol Last Admin: 06/15/23 08:55 Dose: Not Given Documented By: ANA Non-Admin Reason: NPO Lactulose (Lactulose 320 Gm/480 Ml Solution) 200 gm AL Q6H [facility] Last Admin: 06/15/23 06:27 Dose: 200 gm Documented By: LENIN Sodium Chloride (0.9 % Sodium Chloride Flush 3 Ml Syringe) 3 ml IVFLUSH QSHIFT [facility] Last Admin: 06/15/23 08:56 Dose: 3 ml Documented By: ANA Labs 06/15/23 08:13 06/15/23 08:02 Labs: Laboratory Results - last 24 hr 06/14/23 06/14/23 06/14/23 10:06 10:33 17:27 MCV MCH MCHC RDW Plt Count MPV Immature Gran % (Auto) Neut % (Auto) Lymph % (Auto) [place] % (Auto) Eos % (Auto) Baso % (Auto) Lymph # (Auto) [place] # (Auto) Eos # (Auto) Baso # (Auto) Abs Immat Gran (auto) Absolute Neuts (auto) Absolute Nucleated RBC Nucleated RBC % (auto) Anion Gap Estim Creat Clear Calc Estimated GFR POC Glucose 245 H 239 H Random Glucose Calcium Magnesium Ammonia Urine Color Dark Yellow Urine Appearance Clear Urine pH 5.5 Ur Specific [place] 1.025 Urine Protein Negative Urine Glucose (UA) 500 H Urine Ketones Trace Urine Blood Negative Urine Nitrite Negative Ur Leukocyte Esterase Negative Urine Opiates Screen Not Detected Urine Fentanyl Screen Not Detected Ur Barbiturates Screen Not Detected Ur Phencyclidine Scrn Not Detected Ur Amphetamines Screen Not Detected U Benzodiazepines Scrn Not Detected Urine Cocaine Screen Not Detected U Marijuana (THC) Screen Not Detected 06/14/23 06/15/23 06/15/23 20:03 07:58 08:02 MCV MCH MCHC RDW Plt Count MPV Immature Gran % (Auto) Neut % (Auto) Lymph % (Auto) [place] % (Auto) Eos % (Auto) Baso % (Auto) Lymph # (Auto) [place] # (Auto) Eos # (Auto) Baso # (Auto) Abs Immat Gran (auto) Absolute Neuts (auto) Absolute Nucleated RBC Nucleated RBC % (auto) Anion Gap 13 Estim Creat Clear Calc 62.0 Estimated GFR > 60 POC Glucose 226 H 162 H Random Glucose 181 H Calcium 9.2 Magnesium Ammonia Urine Color Urine Appearance Urine pH Ur Specific [place] Urine Protein Urine Glucose (UA) Urine Ketones Urine Blood Urine Nitrite Ur Leukocyte Esterase Urine Opiates Screen Urine Fentanyl Screen Ur Barbiturates Screen Ur Phencyclidine Scrn Ur Amphetamines Screen U Benzodiazepines Scrn Urine Cocaine Screen U Marijuana (THC) Screen 06/15/23 06/15/23 08:12 08:13 MCV 86.1 MCH 29.1 MCHC 33.8 RDW 16.3 H Plt Count 76 L MPV 10.7 Immature Gran % (Auto) 0.2 Neut % (Auto) 69.2 Lymph % (Auto) 13.2 L [place] % (Auto) 10.6 Eos % (Auto) 5.5 H Baso % (Auto) 1.3 Lymph # (Auto) 0.6 L [place] # (Auto) 0.5 Eos # (Auto) 0.3 Baso # (Auto) 0.1 Abs Immat Gran (auto) 0.01 Absolute Neuts (auto) 3.1 Absolute Nucleated RBC 0.000 Nucleated RBC % (auto) 0.0 Anion Gap Estim Creat Clear Calc Estimated GFR POC Glucose Random Glucose Calcium Magnesium 1.9 Ammonia 36 Urine Color Urine Appearance Urine pH Ur Specific [place] Urine Protein Urine Glucose (UA) Urine Ketones Urine Blood Urine Nitrite Ur Leukocyte Esterase Urine Opiates Screen Urine Fentanyl Screen Ur Barbiturates Screen Ur Phencyclidine Scrn Ur Amphetamines Screen U Benzodiazepines Scrn Urine Cocaine Screen U Marijuana (THC) Screen Assessment and Plan (1) Encephalopathy, hepatic: Status: Acute Plan 58-year-old man with history of alcoholic liver cirrhosis complicated by hepatic encephalopathy admitted with acute hepatic encephalopathy requiring per rectum lactulose Acute hepatic encephalopathy in this setting of decompensated liver cirrhosis Altered mental status but more awake today ammonia 36 today change lactulose to po abd distension, us for ascites check add diet Hypertension Stable blood pressure Coronary artery disease Hold statin GERD IV Pepcid Diabetes mellitus type 2 Sliding scale ada diet Mental health Hold medications for now, continue 1 more week DVT prophylaxis with mechanical compression boots Full code DISPO discussed with son regarding possibility of hospice, Family is willing for a consultation continue hospital stay for treatment of acute hepatic encephalopathy requiring freq medication administration for encephalopathy Quality Stroke Does the patient have a stroke diagnosis?: No VTE Prior VTE?: No VTE Risk Level:: Medical - moderate - high VTE Device Contraindication: N/A - Device Ordered VTE Drug Contraindication: Treatment Not Indicated
[2023-06-15 11:36] VITALS: BP 110/55; PULSE 84; RESP 18; TEMP 36.6; O2SAT 98
[2023-06-15 16:00] VITALS: BP 107/75; PULSE 88; RESP 20; TEMP 37.1; O2SAT 99
--- NOTE | 2023-06-15 16:38 | PM.EVENT ---
Event Note Date of Service: 06/15/23 Event Note: Discussed with patient's son and daughter who are healthcare proxies. Discussion at length regarding patient's diagnosis and poor prognosis. Has had increased frequency of hepatic encephalopathic events especially after paracentesis which have also been frequently on a weekly basis. Patient's has had longer times returning back to normal mental status. Fractional reserve is low. Patient still has episodes of confusion. The plan is for hospice consultation tomorrow in his son and daughter would like to make him comfort measures only at this point. Clinically this seems to be the best decision and family would like that to start today. They may be able to take him home on hospice after consultation tomorrow. Time Spent With Patient Time: Total time managing care of this patient today ____ minutes.
[2023-06-15 18:54] VITALS: RESP 20; TEMP 37.2
[2023-06-16] VITALS (7 sets, daily range): BP systolic 104–115; BP diastolic 62–66; PULSE 84–95; RESP 16–18; TEMP 36–36.6; O2SAT 96–100
--- NOTE | 2023-06-16 12:26 | P.PNIM_ITS ---
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 Still some confusion Physical Exam 2 Vital Signs: Vital Signs: Last Vital Signs Temp 96.8 F 06/16/23 12:00 Pulse 84 06/16/23 12:00 Resp 16 06/16/23 12:00 BP 105/64 06/16/23 12:00 Pulse Ox 99 06/16/23 12:00 O2 Del Method Room Air 06/16/23 12:00 O2 Flow Rate 50 06/14/23 20:00 FiO2 100 06/14/23 20:00 BMI result Body Mass Index 20.9 alert, confused Objective Data Active Medications Lorazepam (Lorazepam 2 Mg/Ml Vial) 1 mg IVPUSH Q6H PRN PRN Reason: agitation Morphine Sulfate (Morphine Sulfate 2 Mg/Ml Cartridge) 2 mg IVPUSH Q4H PRN PRN Reason: Discomfort/Shortness of breath Last Admin: 06/16/23 08:17 Dose: 2 mg Documented By: ARIK Ondansetron HCl (Ondansetron Hcl 4 Mg/2 Ml Vial) 4 mg IVPUSH Q8H PRN PRN Reason: Nausea and Vomiting Scopolamine (Scopolamine 1.5 Mg Patch.Td.3) 1.5 mg EAR-BEHIND Q72H [facility] Last Admin: 06/15/23 16:59 Dose: 1.5 mg Documented By: ANA Sodium Chloride (0.9 % Sodium Chloride Flush 3 Ml Syringe) 3 ml IVFLUSH QSHIFT [facility] Last Admin: 06/16/23 08:17 Dose: 3 ml Documented By: ARIK Labs 06/15/23 08:13 06/15/23 08:02 Assessment and Plan (1) Encephalopathy, hepatic: Status: Acute Plan 58-year-old man with history of alcoholic liver cirrhosis complicated by hepatic encephalopathy admitted with acute hepatic encephalopathy requiring per rectum lactulose 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
--- NOTE | 2023-06-16 13:36 | MHC.CM.PN ---
CM met with pt. and family following Hospice consult. Family has questions about what services Hospice provides. Discussed care needs at home. CM to follow and assist with DC plan.
[2023-06-16] MEDS: diphenhydrAMINE HCL 50 MG/ML VIAL 12.5 MG IVPUSH (17:13)
[2023-06-17 07:40] VITALS: BP 96/54; PULSE 88; RESP 17; TEMP 36.8; O2SAT 94
[2023-06-17 07:54] LABS: Glucose, Whole Blood 231 mg/dL (60-115)
[2023-06-17 11:43] LABS: Glucose, Whole Blood 316 mg/dL (60-115)
--- NOTE | 2023-06-17 14:00 | P.PNIM_ITS ---
Subjective Subjective Date of Service: 06/17/23 Review of Systems Follow up hepatic encephalopathy better today and more awake CLINICAL APPEALS RN Still some confusion Physical Exam 2 Vital Signs: Vital Signs: Last Vital Signs Temp 98.2 F 06/17/23 07:40 Pulse 88 06/17/23 07:40 Resp 17 06/17/23 07:40 BP 96/54 L 06/17/23 07:40 Pulse Ox 94 06/17/23 07:40 O2 Del Method Room Air 06/17/23 07:40 O2 Flow Rate 50 06/14/23 20:00 FiO2 100 06/14/23 20:00 BMI result Body Mass Index 20.9 Alert and oriented Objective Data Active Medications Diphenhydramine HCl (Diphenhydramine Hcl 50 Mg/Ml Vial) 12.5 mg IVPUSH Q6H PRN PRN Reason: Itching Last Admin: 06/16/23 17:13 Dose: 12.5 mg Documented By: ARIK Lorazepam (Lorazepam 2 Mg/Ml Vial) 1 mg IVPUSH Q6H PRN PRN Reason: agitation Morphine Sulfate (Morphine Sulfate 2 Mg/Ml Cartridge) 2 mg IVPUSH Q4H PRN PRN Reason: Discomfort/Shortness of breath Last Admin: 06/16/23 15:30 Dose: 2 mg Documented By: ARIK Ondansetron HCl (Ondansetron Hcl 4 Mg/2 Ml Vial) 4 mg IVPUSH Q8H PRN PRN Reason: Nausea and Vomiting Scopolamine (Scopolamine 1.5 Mg Patch.Td.3) 1.5 mg EAR-BEHIND Q72H [facility] Last Admin: 06/15/23 16:59 Dose: 1.5 mg Documented By: ANA Sodium Chloride (0.9 % Sodium Chloride Flush 3 Ml Syringe) 3 ml IVFLUSH QSHIFT [facility] Last Admin: 06/17/23 11:40 Dose: Not Given Documented By: CELENA Non-Admin Reason: See Note Labs 06/15/23 08:13 06/15/23 08:02 Labs: Laboratory Results - last 24 hr 06/17/23 06/17/23 07:43 11:17 POC Glucose 231 H 316 H Assessment and Plan (1) Encephalopathy, hepatic: Status: Acute Plan 58-year-old man with history of alcoholic liver cirrhosis complicated by hepatic encephalopathy admitted with acute hepatic encephalopathy requiring per rectum lactulose CLINICAL APPEALS RN supportive care morphine, ativan scopalamine Family would like hospice in the home Acute hepatic encephalopathy in this setting of decompensated liver cirrhosis Altered mental status but more awake today ammonia normalized but still confused s/p Paracentesis Family requests pleurx catheter but unable due to recent paracentesis Hypertension Coronary artery disease GERD Diabetes mellitus type 2 Mental health DVT prophylaxis with mechanical compression boots Attending Dr. Phillip Full code DISPO Hospice in home when patient medically clear patient now CLINICAL APPEALS RN Quality Stroke Does the patient have a stroke diagnosis?: No VTE Prior VTE?: No VTE Risk Level:: Medical - moderate - high VTE Device Contraindication: N/A - Device Ordered VTE Drug Contraindication: Treatment Not Indicated
--- NOTE | 2023-06-17 15:14 | MHC.CM.PN ---
Addendum entered by Eri Miranda 06/17/23 16:11: This CM received phone call from pts daughter Agatha, they were able to fix the heat in the pts home and are ready to have him come home. Agatha voiced concerns about him not being admitted on hospice today, and worried to have him home no on hospice. Plan will be for pt to discharge tomorrow after DME (bed) delivery and per [facility] a nurse can admit him to hospice tomorrow, they are requesting a 1pm D/C. This information was relayed to pts daughter Agatha who was in agreement with this plan. Original Note: Pt will D/C home with [facility], per pts daughter and son, there is currently a problem with the pts heat and the home is very cold. D/C likely for tomorr or once heat fixed and DME from hospice delivered. CM will continue to follow. Pts daughter and son will transport him home at D/C.
[2023-06-17 16:26] LABS: Glucose, Whole Blood 336 mg/dL (60-115)
--- NOTE | 2023-06-17 16:52 | PC.NURSE ---
informed of pt's POC and that pt stated he would like a dose of insulin tonight
[2023-06-17 20:07] LABS: Glucose, Whole Blood 449 mg/dL (60-115)
[2023-06-17] MEDS: Insulin Lispro 100 UNIT/ML 3 ML VIAL SUBCUT (20:21)
[2023-06-17 21:56] LABS: Glucose, Whole Blood 278 mg/dL (60-115)
[2023-06-18] VITALS: RESP 20; TEMP 36.1
[2023-06-18 07:43] LABS: Glucose, Whole Blood 178 mg/dL (60-115)
--- NOTE | 2023-06-18 07:45 | P.DS_ITS ---
DS: Providers Provider Date of Service: 06/18/23 Date of admission: 06/14/23 08:22 Primary care physician: César Strickland MD DS: Diagnosis Discharge Diagnosis (1) Encephalopathy, hepatic: Status: Acute DS: Summary Hospital Course Hospital Course: 58-year-old man with history of hepatic encephalopathy, advanced cirrhosis presenting to the ER with increased confusion, weakness. According to the patient's son he had become less reactive over the last 2 days. Had a therapeutic paracentesis about 1 week ago. Discharged from [facility] on 06/05/2023 with acute hepatic encephalopathy secondary to liver cirrhosis. Patient is confused and not able to give any accurate history. Ammonia 159, given 200 g of RI lactulose. Plan is to admit patient for further management and treatment of acute hepatic encephalopathy. 58-year-old man treated for acute hepatic encephalopathy secondary to decompensated liver cirrhosis. Patient is initially severely encephalopathic with lethargy and subsequent agitation. Treated with per rectum lactulose initially for multiple doses. Low suspicion for SBP and not treated with antibiotics mentation improved over 48 hours and lactulose was changed to oral. Due to patient's poor prognosis, history of end-stage liver disease, patient being taken off of the liver transplant list it was decided by the patient's family that he would be placed on hospice with comfort measures only. Patient did have a paracentesis for comfort during the hospitalization he had approximately 3 L of fluid removed and 4 days prior to that had approximately 8 L of fluid removed. The patient's family had a hospice consult during the hospitalization in the agreed to initiate care with hospice. Patient is alert and stable today with still some confusion. Patient will be discharged home with family. Comfort care medications including morphine, lorazepam and scopolamine patch sent to patient's pharmacy and may be used as needed, hospice will assist in directing this. Time Attestation Discharge coordination time: Greater than 30 minutes Quality: Safe Use of Opioids Does Pt have an Active Cancer Diagnosis on the Problem List?: No Quality: Stroke Does the patient have a stroke diagnosis?: No Physical Exam Vital Signs: Vital Signs: Last Vital Signs Temp 96.9 F 06/18/23 00:00 Pulse 88 06/17/23 07:40 Resp 20 06/18/23 00:00 BP 96/54 L 06/17/23 07:40 Pulse Ox 94 06/17/23 07:40 O2 Del Method Room Air 06/17/23 07:40 O2 Flow Rate 50 06/14/23 20:00 FiO2 100 06/14/23 20:00 BMI result Body Mass Index 20.9 Appearing in no acute distress, thin and frail head is normocephalic atraumatic eyes pupils are PERRLA sclera is anicteric mouth throat mucous membranes are intact and moist neck is supple no lymphadenopathy, no JVD noted lung sounds are clear to auscultation heart regular rate rhythm, clear S1, S2 positive bowel sounds, abdomen is soft, nontender neuro patient is alert x3, no focal deficits DS: Data Data Completed and Pending Completed studies during hospitalization [Text1]: Procedures Drainage of Peritoneal Cavity, Percutaneous Approach (03/26/23) Drainage of Peritoneal Cavity, Percutaneous Approach, Diagnostic (06/02/23) Inspection of Upper Intestinal Tract, Via Natural or Artificial Opening Endoscopic (09/09/22) Transfusion of Nonautologous Red Blood Cells into Peripheral Vein, Percutaneous Approach (09/09/22) Labs on day of discharge: Laboratory Results - last 24 hr 06/17/23 06/17/23 06/17/23 07:43 11:17 16:22 POC Glucose 231 H 316 H 336 H 06/17/23 06/17/23 06/18/23 20:03 21:52 07:35 POC Glucose 449 H* 278 H 178 H Discharge Plan Discharge Anticipated Discharge Date/Time: 06/18/23 07:39 Patient Disposition: Home Health Service Discharge Diagnosis: Hepatic encephalopathy Decompensated liver cirrhosis Referrals: César Strickland MD [Primary Care Provider] - 1 Week Discharge Medications: New morphine concentrate 100 mg/5 mL (20 mg/mL) solution 5 mg PO Q3H PRN (Reason: pain) Qty: 30 0RF Rx Instructions: Partial Fill upon patient request. Hospice medication lorazepam [Ativan] 0.5 mg tablet 0.5 mg PO Q6H PRN (Reason: anxiety) Qty: 16 0RF Rx Instructions: Hospice medication scopolamine base 1 mg over 3 days patch 3 day 1 patch transdermal Q3D PRN (Reason: nausea and vomiting) Qty: 4 0RF Rx Instructions: Hospice medication Discontinued atorvastatin 20 mg tablet 20 mg PO DAILY insulin glargine-yfgn [Semglee(insulin glarg-yfgn)Pen] 100 unit/mL (3 mL) insulin pen 66 unit subcut DAILY furosemide 20 mg tablet 40 mg PO DAILY spironolactone [Aldactone] 100 mg tablet 100 mg PO DAILY Qty: 30 0RF Ozempic 2 mg/dose (8 mg/3 mL) pen injector 2 mg subcut QWEEK Xifaxan 550 mg Tablet 550 mg PO BID Qty: 60 0RF gabapentin 300 mg capsule 300 mg PO BEDTIME hydroxyzine HCl 50 mg tablet 50 mg PO BEDTIME PRN (Reason: anxiety) lidocaine 5 % adhesive patch,medicated 1 patch topical DAILY PRN (Reason: Pain) omeprazole 20 mg capsule,delayed release(DR/EC) 20 mg PO DAILY@0630 mirtazapine 7.5 mg tablet 7.5 mg PO BEDTIME lactulose 20 gram/30 mL solution 20 g PO TID ferrous sulfate 325 mg (65 mg iron) tablet 325 mg PO DAILY lidocaine 5 % adhesive patch,medicated 1 patch topical DAILY Qty: 15 0RF Rx Instructions: leave on most painful area for up to 12 hrs nadolol 20 mg tablet 20 mg PO DAILY 90 Days Qty: 90 1RF Discharge Orders: Discharge Order (Routine); Ordered 06/18/23 Ordered By: Tammie Jerez Diet: Advance to usual diet Activity on Discharge: As tolerated Stand Alone Forms: Patient Portal Discharge page Care Plan Goals: initiate hospice care at home Health Concerns: Hepatic encephalopathy Decompensated liver cirrhosis Plan of Treatment: comfort care Assessment: see discharge summary
[2023-06-18 08:00] VITALS: RESP 20; TEMP 36.6
[2023-06-18] MEDS: Insulin Lispro 100 UNIT/ML 3 ML VIAL SUBCUT ×2 (09:06→12:10)
[2023-06-18 11:16] LABS: Glucose, Whole Blood 267 mg/dL (60-115)
--- NOTE | 2023-06-18 12:42 | MHC.CM.PN ---
Pt is medically cleared for D/C home with [facility] today. Pts daughter Agatha to transport him home.
== END 2023-06-18 12:14 | disposition home health service (06) | DRG 280 ==
LOC: HO.ED 06:45 → HO.EDOVER 08:24 → HO.IMC 17:10
PROVIDERS: Admitting Provider Nurse Practitioner Acute Care; Emergency Provider Emergency Medicine; PCP Internal Medicine; Visit Provider Nurse Practitioner Acute Care
DX: K70.31 Alcoholic cirrhosis of liver with ascites (principal); D61.818 Other pancytopenia; K76.82 Hepatic encephalopathy; Z51.5 Encounter for palliative care; E11.9 Type 2 diabetes mellitus without complications; I25.10 Atherosclerotic heart disease of native coronary artery without angina pectoris; K21.9 Gastro-esophageal reflux disease without esophagitis; Z20.822 Contact with and (suspected) exposure to COVID-19; Z87.891 Personal history of nicotine dependence; Z79.899 Other long term (current) drug therapy
CPT/HCPCS: 36415; 49083; 76705; 80048; 80076; 80307; 81003; 82140; 82947; 83735; 85025; 85610; 87502; 87635; 93005; 99285; C1758; J1200; J2270

== ENCOUNTER 2023-06-14 08:22 | Outpatient (BNV) | payer OTHER, SELFPAY | END 2023-06-16 09:15 | PROVIDERS: Admitting Provider Nurse Practitioner Acute Care; Emergency Provider Emergency Medicine; PCP Internal Medicine; Visit Provider Radiology Diagnostic Radiology | DX: R18.8 Other ascites (principal) | CPT/HCPCS: 49083 ==

== ENCOUNTER 2023-06-14 08:22 | Outpatient (BNV) | payer OTHER, SELFPAY | END 2023-06-15 15:32 | PROVIDERS: Admitting Provider Nurse Practitioner Acute Care; Emergency Provider Emergency Medicine; PCP Internal Medicine; Visit Provider Internal Medicine Cardiovascular Disease | DX: I45.81 Long QT syndrome (principal) | CPT/HCPCS: 93010 ==

== ENCOUNTER → 2023-06-14 08:22 | Outpatient (BNV) | payer OTHER, SELFPAY | PROVIDERS: Admitting Provider Nurse Practitioner Acute Care; Emergency Provider Emergency Medicine; Visit Provider Nurse Practitioner Acute Care | DX: K76.82 Hepatic encephalopathy (principal) | CPT/HCPCS: 99223; 99232; 99239 ==